=== PATIENT | female | born 1955 | race Caucasian/White ===

== ENCOUNTER 2019-06-22 01:03 | Inpatient (IN) ==
[2019-06-22] MEDS ORDERED: SODIUM CHLORIDE 0.9% 500 ML IV STA (01:28)
[2019-06-22] MEDS ORDERED: ONDANSETRON INJ 2 MG/ML 2 ML VIAL IV STA ×2 (01:33→10:27)
[2019-06-22] MEDS ORDERED: MoRPHine SULFATE 4 MG/ML 1 ML CARP\\VIAL IV STA ×2 (01:33→02:43)
[2019-06-22 02:05] LABS: Hematocrit (blood only) 47.2 % (37-47); Hemoglobin 16.2 g/dL (12.0-16.0); Mean Corpuscular Hgb Conc 34.3 g/dL (32-36); Mean Corpuscular Volume 92.2 fL (80-100); Mean Platelet Volume 9.6 fL (7.4-10.4); Platelet Count 334 K/uL (130-400); RDW Coefficient of Variation 12.8 % (11.5-14.5); RDW Standard Deviation 43.4 fL (36.4-46.3); Red Blood Count 5.12 M/uL (4.2-5.4); White Blood Count 12.64 K/uL (4.8-10.8)
--- NOTE | 2019-06-22 02:15 | Emergency Department Note ---
History of Present Illness General Chief complaint: Flank Pain Stated complaint: PAIN RT SIDE,VOMITING History of Present Illness Maximum Pain Intensity: 8 This 64-year-old presents to the ER complaining of headache, hypertension and right flank pain Location: Head and right flank Quality: Severe Severity: Severe Duration: Today Timing: Today Context: Symptoms got worse and patient came in Modifying factors: better with nothing; worse with nothing Patient states she has not seen a doctor in over a decade. She does not take any medications. She has a distant history of kidney stones. Patient states today she started off with a headache and then developed right flank pain. Nothing makes it better or worse. Patient denies chest pain, dyspnea, abdominal pain, radiating pain, numbness, tingling, localized weakness. No tobacco or alcohol use. Home Medications Home Medications Medication Instructions Recorded Confirmed Type acetaminophen [Tylenol Arthritis 650 mg PO DIRECTED PRN 06/22/19 06/22/19 History Pain] diphenhydramine-acetaminophen 1 tab PO DIRECTED PRN 06/22/19 06/22/19 History [Tylenol PM Extra Strength] Allergies Allergy/AdvReac Type Severity Reaction Status Date / Time Penicillins Allergy Unknown STRONG Verified 06/22/19 01:55 FAMILY HX-NEVER USED. Sulfa (Sulfonamide AdvReac Severe SEVERE N&V Verified 06/22/19 01:55 Antibiotics) Past Med/Surg History Medical History Kidney stones Social History Feels Safe at Home: Yes Smoking Status: Never smoker Review of Systems All systems reviewed & are unremarkable except as noted in HPI & below Physical Exam Vital Signs Vital Signs - 24 hr 06/22/19 01:11 06/22/19 02:34 06/22/19 04:27 Temperature 36.7 C Temperature Source Oral Sepsis Recent Fever Within 48 Hours No Sepsis New/Unexplained Change in Mental Status No Sepsis Action Taken by Nursing No Action Required Pulse Rate 90 Pulse Rate [Left] 63 Pulse Rhythm [Left] Regular Pulse Strength [Left] Normal Respiratory Rate 20 20 17 Respiratory Effort / Characteristics Non-Labored Spontaneous Non-Labored Spontaneous Respiratory Depth Normal Normal Respiratory Pattern Regular Regular Blood Pressure 240/118 H Blood Pressure [Right Arm] 207/114 H 195/113 H Blood Pressure Mean 158 Blood Pressure Mean [Right Arm] 145 140 Blood Pressure Position [Right Arm] Lying Lying Pulse Oximetry 98 95 95 Oxygen Delivery Method Room Air Nasal Cannula Oxygen Flow Rate 2 06/22/19 04:47 Temperature Temperature Source Sepsis Recent Fever Within 48 Hours Sepsis New/Unexplained Change in Mental Status Sepsis Action Taken by Nursing Pulse Rate Pulse Rate [Left] 74 Pulse Rhythm [Left] Regular Pulse Strength [Left] Normal Respiratory Rate 17 Respiratory Effort / Characteristics Non-Labored Spontaneous Respiratory Depth Normal Respiratory Pattern Regular Blood Pressure Blood Pressure [Right Arm] 187/82 H Blood Pressure Mean Blood Pressure Mean [Right Arm] 117 Blood Pressure Position [Right Arm] Lying Pulse Oximetry 96 Oxygen Delivery Method Room Air Oxygen Flow Rate 2 VITALS: Vitals are noted on the nurse's note and reviewed by myself. Vital signs severe hypertension. GENERAL: Pleasant female, in no acute distress, nondiaphoretic, well-developed well-nourished. SKIN: The skin was without rashes, erythema, edema, or bruising. There is no tenting of the skin. Capillary reflex less than 2 seconds. HEAD: Normocephalic atraumatic. EARS: External auditory canals clear, tympanic membranes pearly lyles without e rythema or effusion bilaterally. EYES: Pupils equal round and reactive to light and accommodation. Conjunctivae without injection, sclerae without icterus. Extraocular movements intact. NOSE: Patent, turbinates without inflammation or discharge. No sinus tenderness. MOUTH: Mucous membranes moist. Pharynx without erythema or exudate. Uvula midline. Airway patent. Tongue does not deviate. NECK: Supple without nuchal rigidity. No lymphadenopathy. No thyromegaly. Cervical spine is nontender. No JVD. HEART: Regular rate and rhythm LUNGS: Clear to auscultation bilaterally without wheezes, rales or rhonchi. No retractions or accessory muscle use. ABDOMEN: Positive bowel sounds x 4. Normal tympanic percussion. Soft, nontender, without masses or organomegaly. Ayon sign negative. No guarding or rebound tenderness. No CVA tenderness MUSCULOSKELETAL: No muscle atrophy, erythema, or edema noted. NEURO: Patient was alert and oriented to person place and time. Normal sensat ion to light and sharp touch. No focal neurological deficits. Course Administered Medications Ioversol (Optiray 320 125ml) 125 ml IV ONCE PRN PRN Reason: Interaction Checking Stop: 06/26/19 04:16 Last Admin: 06/22/19 04:17 Dose: 118 ml Documented by: [id number] Discontinued Medications Hydralazine HCl (Hydralazine Hcl) 10 mg IV NOW STA Stop: 06/22/19 04:11 Last Admin: 06/22/19 04:26 Dose: 10 mg Documented by: [id number] Sodium Chloride (Nss) 500 mls @ 999 mls/hr IV .Q31M STA Stop: 06/22/19 01:58 Last Infusion: 06/22/19 02:34 Dose: 0 mls/hr Documented by: [id number] Admin: 06/22/19 02:00 Dose: 999 mls/hr Documented by: [id number] Ceftriaxone Sodium (Rocephin) 2,000 mg in 70 mls @ 140 mls/hr IV NOW STA Stop: 06/22/19 04:34 Last Admin: 06/22/19 04:43 Dose: 140 mls/hr Documented by: [id number] Acetaminophen (Ofirmev) 1,000 mg in 100 mls @ 400 mls/hr IV NOW STA Stop: 06/22/19 04:24 Last Infusion: 06/22/19 04:43 Dose: 0 mls/hr Documented by: [id number] Admin: 06/22/19 04:26 Dose: 400 mls/hr Documented by: [id number] Morphine Sulfate (Morphine Sulfate) 4 mg IV NOW STA Stop: 06/22/19 01:34 Last Admin: 06/22/19 02:00 Dose: 4 mg Documented by: [id number] Morphine Sulfate (Morphine Sulfate) 4 mg IV NOW STA Stop: 06/22/19 02:44 Last Admin: 06/22/19 02:53 Dose: 4 mg Documented by: [id number] Ondansetron HCl (Zofran) 4 mg IV NOW STA Stop: 06/22/19 01:34 Last Admin: 06/22/19 02:00 Dose: 4 mg Documented by: [id number] Medical Decision Making Medical Records Attestation: I reviewed the patient's medical records. Home Medications Current Medication List: was personally reviewed by me Laboratory Data Attestation: I reviewed the patient's lab results. Result diagrams: 06/22/19 01:50 06/22/19 01:50 Lab Results 06/22/19 06/22/19 06/22/19 Range/Units 01:50 01:50 01:50 WBC 12.64 H (4.8-10.8) K/uL RBC 5.12 (4.2-5.4) M/uL Hgb 16.2 H (12.0-16.0) g/dL POC Hgb (12.0-16.0) g/dl Hct 47.2 H (37-47) % POC Hct (37-47) % MCV 92.2 (80-100) fL MCH 31.6 (25-34) pg MCHC 34.3 (32-36) g/dL RDW Std Deviation 43.4 (36.4-46.3) fL RDW Coeff of Marcos 12.8 (11.5-14.5) % Plt Count 334 (130-400) K/uL MPV 9.6 (7.4-10.4) fL PT 10.0 (9.0-12.0) Seconds INR 1.0 (0.9-1.1) APTT 28.0 (21.0-31.0) Seconds PTT Ratio 1.0 POC Sodium (135-144) mEq/L Sodium 142 (136-145) mmol/L POC Potassium (3.3-5.0) mEq/L Potassium 3.8 (3.5-5.1) mmol/L POC Chloride (101-112) mEq/L Chloride 109 H (98-107) mmol/L Carbon Dioxide 27 (21-32) mmol/L POC Total CO2 (24-31) mEq/l Anion Gap 6.0 (3-11) POC Anion Gap (16-25) mmol/L POC BUN (7-18) mg/dl BUN 11 (7-18) mg/dl Creatinine 1.19 (0.6-1.2) mg/dl POC Creatinine (0.6-1.3) mg/dl Est Cr Clr Drug Dosing Not Reportable Est GFR ( Amer) 56.7 Est GFR (Non-Af Amer) 48.9 BUN/Creatinine Ratio 9.2 L (10-20) Glucose 107 H (70-99) mg/dl POC Glucose (other) (70-99) mg/dl Calcium 9.5 (8.5-10.1) mg/dl POC Ioniz Calcium Dk (1.12-1.32) mmol/l Total Bilirubin 0.8 (0.2-1) mg/dl AST 22 (15-37) U/L ALT 28 (12-78) U/L Alkaline Phosphatase 118 H (45-117) U/L Troponin I < 0.015 (0-0.045) ng/ml Total Protein 8.0 (6.4-8.2) gm/dl Albumin 4.2 (3.4-5.0) gm/dl Globulin 3.8 (2.5-4.0) gm/dl Albumin/Globulin Ratio 1.1 (0.9-2) TSH 4.630 H (0.300-4.500) uIu/ml Free T4 1.16 (0.8-1.6) ng/dl Specimen Hemolysis Urine Color Urine Appearance (Clear) Urine pH (4.5-7.5) POC Urine pH (4.5-7.5) Ur Specific [place] (1.000-1.030) Urine Protein (Negative) POC Urine Protein (Negative) Urine Glucose (UA) (Negative) POC Ur Glucose (UA) (Normal) Urine Ketones (Negative) POC Urine Ketones (Negative) Urine Blood (Negative) POC Urine Blood (Negative) Urine Nitrite (Negative) POC Urine Nitrite (Negative) Urine Bilirubin (Negative) POC Urine Bilirubin (Negative) Urine Urobilinogen (Negative) Ur Leukocyte Esterase (Negative) POC U Leukocyte Esteras (Negative) Urine WBC (Auto) (0-5) /hpf Urine RBC (Auto) (0-4) /hpf U Hyaline Cast (Auto) (0-5) /lpf U Epithel Cells (Auto) (0-5) /lpf Urine Bacteria (Auto) (Negative) 06/22/19 06/22/19 06/22/19 Range/Units 02:06 02:15 02:15 WBC (4.8-10.8) K/uL RBC (4.2-5.4) M/uL Hgb (12.0-16.0) g/dL POC Hgb 16.3 H (12.0-16.0) g/dl Hct (37-47) % POC Hct 48 H (37-47) % MCV (80-100) fL MCH (25-34) pg MCHC (32-36) g/dL RDW Std Deviation (36.4-46.3) fL RDW Coeff of Marcos (11.5-14.5) % Plt Count (130-400) K/uL MPV (7.4-10.4) fL PT (9.0-12.0) Seconds INR (0.9-1.1) APTT (21.0-31.0) Seconds PTT Ratio POC Sodium 143 (135-144) mEq/L Sodium (136-145) mmol/L POC Potassium 3.9 (3.3-5.0) mEq/L Potassium (3.5-5.1) mmol/L POC Chloride 107 (101-112) mEq/L Chloride (98-107) mmol/L Carbon Dioxide (21-32) mmol/L POC Total CO2 25 (24-31) mEq/l Anion Gap (3-11) POC Anion Gap 16.0 (16-25) mmol/L POC BUN 11 (7-18) mg/dl BUN (7-18) mg/dl Creatinine (0.6-1.2) mg/dl POC Creatinine 1.1 (0.6-1.3) mg/dl Est Cr Clr Drug Dosing Est GFR ( Amer) Est GFR (Non-Af Amer) BUN/Creatinine Ratio (10-20) Glucose (70-99) mg/dl POC Glucose (other) 115 H (70-99) mg/dl Calcium (8.5-10.1) mg/dl POC Ioniz Calcium Dk 1.16 (1.12-1.32) mmol/l Total Bilirubin (0.2-1) mg/dl AST (15-37) U/L ALT (12-78) U/L Alkaline Phosphatase (45-117) U/L Troponin I (0-0.045) ng/ml Total Protein (6.4-8.2) gm/dl Albumin (3.4-5.0) gm/dl Globulin (2.5-4.0) gm/dl Albumin/Globulin Ratio (0.9-2) TSH (0.300-4.500) uIu/ml Free T4 (0.8-1.6) ng/dl Specimen Hemolysis Urine Color Yellow Urine Appearance Clear (Clear) Urine pH 6.0 (4.5-7.5) POC Urine pH 6 (4.5-7.5) Ur Specific [place] 1.016 (1.000-1.030) Urine Protein 1+ H (Negative) POC Urine Protein Trace H (Negative) Urine Glucose (UA) Negative (Negative) POC Ur Glucose (UA) Normal (Normal) Urine Ketones Negative (Negative) POC Urine Ketones Negative (Negative) Urine Blood 3+ H (Negative) POC Urine Blood 250 H (Negative) Urine Nitrite Negative (Negative) POC Urine Nitrite Negative (Negative) Urine Bilirubin Negative (Negative) POC Urine Bilirubin Negative (Negative) Urine Urobilinogen Negative (Negative) Ur Leukocyte Esterase 2+ H (Negative) POC U Leukocyte Esteras Trace H (Negative) Urine WBC (Auto) 10-30 H (0-5) /hpf Urine RBC (Auto) >30 H (0-4) /hpf U Hyaline Cast (Auto) 1-5 (0-5) /lpf U Epithel Cells (Auto) 0-5 (0-5) /lpf Urine Bacteria (Auto) 2+ H (Negative) Imaging Data Attestation: I personally reviewed and interpreted this imaging study as follows: Blood Pressure Blood Pressure Findings: Elevated blood pressure Blood Pressure Disposition: Referred to patients primary care provider MDM Narrative Prior records/ancillary studies reviewed and summarized above. Nursing notes reviewed. Additional history obtained from family. The patient's history was concerning for headache, hypertension and flank pain. Differential diagnosis: Etiologies such as metabolic, infection, hypo/hyperglycemia, electrolyte abnormalities, cardiac sources, intracerebral event, toxicologic, neurologic, as well as others were entertained. Physical examination: As above. ER treatment provided: IV Lock, Rocephin, hydralazine Morphine and Zofran IV On reassessment the patient felt better. Diagnostics interpretation by me: ECG: Normal sinus, normal intervals, T wave inversions in the anterolateral leads, no old EKG. Impression normal sinus rhythm with T wave inversion in the anterolateral leads interpreted by myself I think arrhythmia is unlikely. EKG shows normal sinus rhythm with no interval abnormalities such as QT prolongation or WPW. There are no findings to suggest Brugada syndrome. Cardiac monitoring in the emergency department reveals no tachycardic or bradycardic dysrhythmia. Hypertrophic cardiomyopathy was considered but there are no clear historical elements pointing toward this. EKG is not suggestive. The QRS voltage is not extremely large and there are no suggestive Q waves. The labs revealed negative troponin Leukocytosis. Urine concerning for infection and sent for culture. Imaging studies: CTA ABDOMEN & PELVIS W/WO Contrast: 5 mm obstructing stone at the right UPJ causing mild to moderate right hydronephrosis and hydroureter. Additional nonobstructing stones in the right kidney. Exophytic cyst measuring 2.5 cm at the medial inferior right kidney is probably benign. Diverticulosis without diverticulitis. No bowel wall thickening or obstruction. Normal appendix. No aortic aneurysm or dissection. Mild aortic atherosclerosis. Scoliosis. Radiologist: Renzo Blas MD CT HEAD: No acute intracranial hemorrhage, mass effect, midline shift, hydrocephalus or acute infarct. Lowdensity in the bilateral periventricular white matter is nonspecific but probably represents chronic small vessel ischemic disease. Bony structures are intact. Soft tissues are unremarkable. Radiologist: Renzo Blas MD Consultation: A consultation was placed with the hospitalist, Dr. Davis. The case was discussed and diagnostics were reviewed. The patient was evaluated in the ER for further treatment. Exam and history seem consistent with hypertensive urgency, right ureteral colic with UTI and ureterolithiasis. Medicine was consulted. Patient started antibiotics. Blood pressure came down. It was still high though. Patient is agreeable to treatment plan of admission. By the evaluation outlined above emergent etiologies such as electrolyte abnormalities, cardiac sources, intracerebral event, toxologic, abnormalities blood glucose, metabolic, as well as others were deemed relatively unlikely. The pt informed about the findings as listed above. All questions were answered and pleased with the treatment. Case reviewed with my attending The chart was completed utilizing [employer] Speech voice recognition software. Grammatical errors, random word insertions, pronoun errors, and incomplete sentences are an occassional consequence of this system due to software limitations, ambient noise, and hardware issues. Any formal questions or concerns about the content, text, or information contained within the body of this dictation should be directly addressed to the physician salon assistant for clarification. Impression & Plan Renal colic on right side, Ureterolithiasis, Hypertensive urgency Discharge Plan Visit Data Chief Complaint: Flank Pain Stated Complaint: PAIN RT SIDE,VOMITING ED Provider: Hussain Monet ED Midlevel Provider: Lorrie Bourgeois Discharge Problem: Renal colic on right side, Ureterolithiasis, Hypertensive urgency Patient Disposition: Being Evaluated by Hospitalist Condition: Fair Forms Stand Alone Forms: My [facility] Prescriptions Prescriptions: No Action acetaminophen [Tylenol Arthritis Pain] 650 mg Tablet Extended Release 650 mg PO DIRECTED PRN (Reason: Pain) RF: 0 diphenhydramine-acetaminophen [Tylenol PM Extra Strength] 25-500 mg Tablet 1 tab PO DIRECTED PRN (Reason: PAIN/SLEEP) RF: 0 Referrals Referrals: PCP,NO [Primary Care Provider] -
[2019-06-22 02:22] LABS: iSTAT Creatinine 1.1 mg/dl (0.6-1.3); iSTAT Hemoglobin 16.3 g/dl (12.0-16.0); iSTAT Ionized Calcium 1.16 mmol/l (1.12-1.32); iSTAT Potassium 3.9 mEq/L (3.3-5.0)
[2019-06-22 02:40] LABS: Alanine Aminotransferase 28 U/L (12-78); Albumin Globulin Ratio 1.1 (0.9-2); Albumin Level 4.2 gm/dl (3.4-5.0); Alkaline Phosphatase 118 U/L (45-117); Aspartate Aminotransferase 22 U/L (15-37); BUN Creatinine Ratio 9.2 (10-20); Bilirubin,Total 0.8 mg/dl (0.2-1); Blood Urea Nitrogen 11 mg/dl (7-18); Calcium 9.5 mg/dl (8.5-10.1); Carbon Dioxide 27 mmol/L (21-32); Chloride 109 mmol/L (98-107); Est GFR (African American) 56.7; Est GFR (Non-African American) 48.9; Globulin 3.8 gm/dl (2.5-4.0); Glucose 107 mg/dl (70-99); Potassium 3.8 mmol/L (3.5-5.1); Sodium 142 mmol/L (136-145); Troponin I < 0.015 ng/ml (0-0.045)
[2019-06-22 02:41] LABS: Appearance Urine Clear (Clear); Bacteria Urine Automated 2+ (Negative); Bilirubin Urine Negative (Negative); Blood Urine 3+ (Negative); Color Urine Yellow; Epithelial Cell Urine Auto 0-5 /lpf (0-5); Glucose Urine UA Negative (Negative); Ketones Urine Negative (Negative); Leukocyte Esterase Urine 2+ (Negative); Nitrite Urine Negative (Negative); Protein Urine 1+ (Negative); RBC Urine Automated >30 /hpf (0-4); Specific Gravity Urine 1.016 (1.000-1.030); Urobilinogen Urine Negative (Negative)
[2019-06-22 02:57] LABS: T4 Free Thyroxine 1.16 ng/dl (0.8-1.6)
[2019-06-22] MEDS ORDERED: cefTRIAXone SODIUM 2,000 MG/70 ML BAG IV STA (04:05)
[2019-06-22] MEDS ORDERED: HydrALAZINE HCL 20 MG/ML VIAL IV STA ×2 (04:10→04:48)
[2019-06-22] MEDS ORDERED: ACETAMINOPHEN 1,000 MG/100 ML VIAL IV STA (04:10)
[2019-06-22] MEDS ORDERED: OPTIRAY 320 125ml IV PRN (04:17)
[2019-06-22] MEDS ORDERED: ONDANSETRON INJ 2 MG/ML 2 ML VIAL ONE (05:05)
[2019-06-22] MEDS ORDERED: dilTIAZem HCl 5 MG/ML 5 ML VIAL IV STA (05:12)
--- NOTE | 2019-06-22 05:51 | History & Physical Report ---
Date of Service June 22, 2019 Assessment & Plan (1) Hypertensive urgency: Hypertensive urgency/abnormal EKG with T wave inversions suggesting lateral ischemia- The patient will be admitted to telemetry for serial cardiac enzymes, serial EKG's, cardiac rhythm monitoring and a 2-D echocardiogram with Dopplers. Initial systolic blood pressure in the ED was 260. Patient has been given hydralazine 10 mg IV, followed by Cardizem 10 mg IV in the ED. Start Nitropaste 1 inch to anterior chest wall every 6 hours. Lopressor 5 mg IV every 4 hours hold for heart rate less than 60 or systolic blood pressure less than 110. Consult cardiology. Present on Admission?: Yes (2) Abnormal EKG: See above Present on Admission?: Yes (3) Obstruction of right ureteropelvic junction (UPJ) due to stone: 5 mm obstructing right UPJ stone/right hydroureteronephrosis/abnormal urinalysis- Acetaminophen 1 g IV every 8 hours PRN mild pain or temperature. Dilaudid 0.5 mg IV every 3 hours as needed severe pain. NSS + KCl 20 mEq at 100 mils per hour. Zofran 4 mg IV every 6 hours as needed. Consult urology. Present on Admission?: Yes (4) Hydroureteronephrosis: See above Present on Admission?: Yes History of Present Illness Chief Complaint: The patient presents to the emergency department with acute onset of headache, right flank pain, nausea with vomiting and elevated blood pressure. Primary Care Provider: NO PCP Patient is a 64-year-old female with a past medical history including kidney stones about 20 years ago that required surgical removal, who developed acute onset of right flank pain, nausea and vomiting, headache and elevated blood pressure prior to arrival. Allergies Allergy/AdvReac Type Severity Reaction Status Date / Time Penicillins Allergy Unknown STRONG Verified 06/22/19 01:55 FAMILY HX-NEVER USED. Sulfa (Sulfonamide AdvReac Severe SEVERE N&V Verified 06/22/19 01:55 Antibiotics) Home Medications Home Medications Medication Instructions Recorded Confirmed Type acetaminophen [Tylenol Arthritis 650 mg PO DIRECTED PRN 06/22/19 06/22/19 History Pain] diphenhydramine-acetaminophen 1 tab PO DIRECTED PRN 06/22/19 06/22/19 History [Tylenol PM Extra Strength] Past Med/Surg History Medical History Kidney stones Social History Feels Safe at Home: Yes Smoking Status: Never smoker Review of Systems Review of Systems: The patient denies chest pain, palpitations, shortness of breath, dyspnea on exertion, cough, lower extremity swelling, sore throat, fevers, chills, sweats, diarrhea , constipation, blood in urine or stool, dysuria, urinary frequency or urgency, memory loss, loss of consciousness, rash, abnormal bruising or bleeding, imbalance, focal or generalized weakness, numbness or tingling in arms or legs, generalized arthralgias or myalgias, back or neck pain, or night sweats. The review of systems is otherwise negative other than for that already noted above, and at least 10 systems have been reviewed. Physical Exam Physical Exam: The patient is awake, alert and oriented 3, well developed and well nourished, normocephalic and atraumatic, sitting upright in bed, with vomit bag in hand. HEENT--PERRL, EOMI, mucous membranes and oropharynx dry. Neck--supple. No JVD. No bruits. Thyroid normal, trachea midline, no adenopathy. Heart--normal S1 and S2. No murmurs, rubs or gallops. Lungs--clear bilaterally, but diminished throughout. Abdomen--normal bowel sounds and soft. Nontender. Nondistended. Extremities--no cyanosis or clubbing. No edema. There are good distal pulses b/l. Dermatologic--normal skin turgor, normal color, no abnormal lymph nodes, no rash. Neurologic--cranial nerves II through XII grossly intact. Rheumatologic--normal range of motion. Psychiatric--normal affect. Results & Data Vital Signs (Past 12 Hours) Vital Signs Temp Pulse Pulse Resp BP BP Pulse Ox 06/22/19 05:13 79 18 178/91 H 94 06/22/19 04:47 74 17 187/82 H 96 06/22/19 04:27 63 17 195/113 H 95 06/22/19 02:34 20 207/114 H 95 06/22/19 01:11 98.1 F 90 20 240/118 H 98 Laboratory Results Laboratory Results WBC 12.64 K/uL (4.8-10.8) H 06/22/19 01:50 RBC 5.12 M/uL (4.2-5.4) 06/22/19 01:50 Hgb 16.2 g/dL (12.0-16.0) H 06/22/19 01:50 POC Hgb 16.3 g/dl (12.0-16.0) H 06/22/19 02:06 Hct 47.2 % (37-47) H 06/22/19 01:50 POC Hct 48 % (37-47) H 06/22/19 02:06 MCV 92.2 fL (80-100) 06/22/19 01:50 MCH 31.6 pg (25-34) 06/22/19 01:50 MCHC 34.3 g/dL (32-36) 06/22/19 01:50 RDW Std Deviation 43.4 fL (36.4-46.3) 06/22/19 01:50 RDW Coeff of Marcos 12.8 % (11.5-14.5) 06/22/19 01:50 Plt Count 334 K/uL (130-400) 06/22/19 01:50 MPV 9.6 fL (7.4-10.4) 06/22/19 01:50 PT 10.0 Seconds (9.0-12.0) 06/22/19 01:50 INR 1.0 (0.9-1.1) 06/22/19 01:50 APTT 28.0 Seconds (21.0-31.0) 06/22/19 01:50 PTT Ratio 1.0 06/22/19 01:50 POC Sodium 143 mEq/L (135-144) 06/22/19 02:06 Sodium 142 mmol/L (136-145) 06/22/19 01:50 POC Potassium 3.9 mEq/L (3.3-5.0) 06/22/19 02:06 Potassium 3.8 mmol/L (3.5-5.1) 06/22/19 01:50 POC Chloride 107 mEq/L (101-112) 06/22/19 02:06 Chloride 109 mmol/L (98-107) H 06/22/19 01:50 Carbon Dioxide 27 mmol/L (21-32) 06/22/19 01:50 POC Total CO2 25 mEq/l (24-31) 06/22/19 02:06 Anion Gap 6.0 (3-11) 06/22/19 01:50 POC Anion Gap 16.0 mmol/L (16-25) 06/22/19 02:06 POC BUN 11 mg/dl (7-18) 06/22/19 02:06 BUN 11 mg/dl (7-18) 06/22/19 01:50 Creatinine 1.19 mg/dl (0.6-1.2) 06/22/19 01:50 POC Creatinine 1.1 mg/dl (0.6-1.3) 06/22/19 02:06 Est Cr Clr Drug Dosing Not Reportable 06/22/19 01:50 Est GFR ( Amer) 56.7 06/22/19 01:50 Est GFR (Non-Af Amer) 48.9 06/22/19 01:50 BUN/Creatinine Ratio 9.2 (10-20) L 06/22/19 01:50 Glucose 107 mg/dl (70-99) H 06/22/19 01:50 POC Glucose (other) 115 mg/dl (70-99) H 06/22/19 02:06 Calcium 9.5 mg/dl (8.5-10.1) 06/22/19 01:50 POC Ioniz Calcium Dk 1.16 mmol/l (1.12-1.32) 06/22/19 02:06 Total Bilirubin 0.8 mg/dl (0.2-1) 06/22/19 01:50 AST 22 U/L (15-37) 06/22/19 01:50 ALT 28 U/L (12-78) 06/22/19 01:50 Alkaline Phosphatase 118 U/L (45-117) H 06/22/19 01:50 Troponin I < 0.015 ng/ml (0-0.045) 06/22/19 01:50 Total Protein 8.0 gm/dl (6.4-8.2) 06/22/19 01:50 Albumin 4.2 gm/dl (3.4-5.0) 06/22/19 01:50 Globulin 3.8 gm/dl (2.5-4.0) 06/22/19 01:50 Albumin/Globulin Ratio 1.1 (0.9-2) 06/22/19 01:50 TSH 4.630 uIu/ml (0.300-4.500) H 06/22/19 01:50 Free T4 1.16 ng/dl (0.8-1.6) 06/22/19 01:50 Specimen Hemolysis 06/22/19 01:50 Urine Color Yellow 06/22/19 02:15 Urine Appearance Clear (Clear) 06/22/19 02:15 Urine pH 6.0 (4.5-7.5) 06/22/19 02:15 POC Urine pH 6 (4.5-7.5) 06/22/19 02:15 Ur Specific [place] 1.016 (1.000-1.030) 06/22/19 02:15 Urine Protein 1+ (Negative) H 06/22/19 02:15 POC Urine Protein Trace (Negative) H 06/22/19 02:15 Urine Glucose (UA) Negative (Negative) 06/22/19 02:15 POC Ur Glucose (UA) Normal (Normal) 06/22/19 02:15 Urine Ketones Negative (Negative) 06/22/19 02:15 POC Urine Ketones Negative (Negative) 06/22/19 02:15 Urine Blood 3+ (Negative) H 06/22/19 02:15 POC Urine Blood 250 (Negative) H 06/22/19 02:15 Urine Nitrite Negative (Negative) 06/22/19 02:15 POC Urine Nitrite Negative (Negative) 06/22/19 02:15 Urine Bilirubin Negative (Negative) 06/22/19 02:15 POC Urine Bilirubin Negative (Negative) 06/22/19 02:15 Urine Urobilinogen Negative (Negative) 06/22/19 02:15 Ur Leukocyte Esterase 2+ (Negative) H 06/22/19 02:15 POC U Leukocyte Esteras Trace (Negative) H 06/22/19 02:15 Urine WBC (Auto) 10-30 /hpf (0-5) H 06/22/19 02:15 Urine RBC (Auto) >30 /hpf (0-4) H 06/22/19 02:15 U Hyaline Cast (Auto) 1-5 /lpf (0-5) 06/22/19 02:15 U Epithel Cells (Auto) 0-5 /lpf (0-5) 06/22/19 02:15 Urine Bacteria (Auto) 2+ (Negative) H 06/22/19 02:15 Diagnostic Findings [facility] Patient: SHAHEEN OLEARY (Female) Age: 64 MR #: [id number] Status: ER Date: 06/22/19 02:26 Slices: 66 History: HEADACHE EARLIER TODAY , BLOOD PRESSURE ELEVATED Priors: Tech: Garry Bunch @ [phone] Exams: CT HEAD Accession Numbers: [id number] Preliminary Findings Only See Final Report For Complete Findings CT HEAD: No acute intracranial hemorrhage, mass effect, midline shift, hydrocephalus or acute infarct. Low-density in the bilateral periventricular white matter is nonspecific but probably represents chronic small vessel ischemic disease. Bony structures are intact. Soft tissues are unremarkable. Radiologist: Renzo Blas MD Study ready at 02:30 and initial results transmitted at 02:46 *This report constitutes a preliminary interpretation only. Non-acute findings felt to be unrelated to the clinical presentation may not be discussed in this report. The study will be interpreted and a final report will be generated by the local Radiologist the following shift. To reach the hospital radiology department call [phone]. If a discrepancy is found between the preliminary and final interpretations of this study, please notify us via our Client Portal at [email or web address], under QA Exams. You can also fax this report with a description of the discrepancy, or include the final report, to our daytime fax number [phone]. If faxing, please indicate the severity of discrepancy using one of the following categories: [ ] 1 - Agree/Informational [ ] 2 - Unlikely to Affect Management [ ] 3 - Possible Eventual Change of Management [ ] 4 - Probable Immediate Change of Management For all other patient related information, please fax us at [phone]. [id number] [facility] Patient: SHAHEEN OLEARY (Female) Age: 64 MR #: [id number] Status: ER Date: 06/22/19 03:59 Slices: [id number] History: PAIN AT RIGHT FLANK, H/O KIDNEY STONES, AND HTN Priors: Tech: Garry Bunch @ [phone] Exams: CTA ABDOMEN & PELVIS W/WO Contrast Contrast: IV Amt: 118 ML OPTIRAY 320 Accession Numbers: [id number] Preliminary Findings Only See Final Report For Complete Findings CTA ABDOMEN & PELVIS W/WO Contrast: 5 mm obstructing stone at the right UPJ causing mild to moderate right hydronephrosis and hydroureter. Additional nonobstructing stones in the right kidney. Exophytic cyst measuring 2.5 cm at the medial inferior right kidney is probably benign. Diverticulosis without diverticulitis. No bowel wall thickening or obstruction. Normal appendix. No aortic aneurysm or dissection. Mild aortic atherosclerosis. Scoliosis. Radiologist: Renzo Blas MD Study ready at 04:01 and initial results transmitted at 04:29 *This report constitutes a preliminary interpretation only. Non-acute findings felt to be unrelated to the clinical presentation may not be discussed in this report. The study will be interpreted and a final report will be generated by the local Radiologist the following shift. To reach the hospital radiology department call [phone]. If a discrepancy is found between the preliminary and final interpretations of this study, please notify us via our Client Portal at [email or web address], under QA Exams. You can also fax this report with a description of the discrepancy, or include the final report, to our daytime fax number [phone]. If faxing, please indicate the severity of discrepancy using one of the following categories: [ ] 1 - Agree/Informational [ ] 2 - Unlikely to Affect Management [ ] 3 - Possible Eventual Change of Management [ ] 4 - Probable Immediate Change of Management For all other patient related information, please fax us at [phone]. [id number] Code Status & VTE Plan Code Status Full code VTE Prophylaxis Plan VTE Prophylaxis will be ordered: Yes PG Care Time/CCT Total # of Minutes Spent Total Time Spent with Patient: Total time spent is greater than 50% in coordination of care (as documented) at patient's floor/unit and/or counseling patient:
[2019-06-22] MEDS ORDERED: ACETAMINOPHEN 1,000 MG/100 ML VIAL IV PRN (06:56)
[2019-06-22] MEDS ORDERED: HYDROmorphone INJ 0.5 MG/0.5 ML SYR IV PRN (06:56)
[2019-06-22] MEDS ORDERED: ONDANSETRON INJ 2 MG/ML 2 ML VIAL IV PRN ×2 (06:56→10:27)
--- NOTE | 2019-06-22 07:06 | CT Scan Report ---
HEAD CT NONCONTRAST CT DOSE: 614.27 mGy.cm HISTORY: Severe headache. Hypertension. TECHNIQUE: Multiaxial CT images of the head were performed without the use of intravenous contrast. A utomated exposure control was utilized for this study. A dose lowering technique was utilized adheri ng to the principles of ALARA. Comparison: None. Findings: The paranasal sinuses and mastoid air cells are clear. The calvarium and skull base are int act. There is no mass, hematoma, midline shift, acute infarct. White matter hypodensity is nonspecifi c but suggestive of microvascular ischemic change. The ventricles and sulci demonstrate mild age-rela bhakti involutional changes. Impression: No acute intracranial abnormality. Electronically signed by: Romaine Tripp M.D. 06/22/2019 7:04 AM
--- NOTE | 2019-06-22 07:20 | CT Scan Report ---
CT angio abd pelvis wo/w con HISTORY: severe right flank pain, HTN, weak TECHNIQUE: Multiaxial CT images of the abdomen and pelvis performed both before and after the intrave nous administration of contrast to evaluate the aorta. Maximal intensity projection images were also obtained. COMPARISON STUDY: None. FINDINGS: There are few punctate right renal calculi. Mild right hydronephrosis secondary to an obstr ucting 5 mm stone at the right ureteropelvic junction. Mild right perinephric edema. A 2.4 cm exophyt ic hyperdense cyst within the lower pole the right kidney. Bibasilar linear densities consistent with subsegmental atelectasis. No suspicious lytic or blastic osseous lesions. Small amount of fluid with in the distal esophagus. The liver, gallbladder, pancreas, spleen, and kidneys are unremarkable. No l eft-sided hydronephrosis. No retroperitoneal lymphadenopathy. Mild calcified plaque within the normal caliber abdominal aorta. No evidence for an aortic dissection. The renal, superior mesenteric, infer ior mesenteric, and celiac arteries are widely patent. The iliac arteries are also patent. The bladde r, uterus, and bilateral adnexa are unremarkable. Colonic diverticulosis. No evidence for diverticuli tis. No bowel wall thickening or obstruction. Small fat-containing umbilical hernia. Normal appendix. IMPRESSION: 1. A 5 mm obstructing stone within the right ureteropelvic junction resulting in mild right hydroneph rosis. 2. No evidence for an aortic dissection or aneurysm. 3. Colonic diverticulosis. 4. Small fat-containing umbilical hernia. 5. Additional findings as described above. Electronically signed by: Romaine Tripp M.D. 06/22/2019 7:19 AM
[2019-06-22] MEDS: NITROGLYCERIN 2% OINTMENT 30GM TUBE EXT SCH ×3 (07:47→19:34)
[2019-06-22] MEDS: NSS + 20MEQ KCL 20 MEQ/1,000 ML BAG IV SCH ×2 (07:47→19:34)
--- NOTE | 2019-06-22 08:08 | Family Medicine Progress Note ---
Date of Service June 22, 2019 Assessment & Plan (1) Hypertensive urgency: #Hypertensive urgency/abnormal EKG with T wave inversions suggesting lateral ischemia- The patient will be admitted to telemetry for serial cardiac enzymes, serial EKG's, cardiac rhythm monitoring and a 2-D echocardiogram with Dopplers. -Initial systolic blood pressure in the ED was 260 Now improved to 167 -Patient has been given hydralazine 10 mg IV, followed by Cardizem 10 mg IV in the ED. -Start Nitropaste 1 inch to anterior chest wall every 6 hours. -Lopressor 5 mg IV every 4 hours hold for heart rate less than 60 or systolic blood pressure less than 110. -Cardiology consulted follow-up recommendations #5 mm obstructing right UPJ stone/right hydroureteronephrosis/abnormal urinalysis -Acetaminophen 1 g IV every 8 hours PRN mild pain or temperature. -Dilaudid 0.5 mg IV every 3 hours as needed severe pain. -NSS + KCl 20 mEq at 100 mils per hour. -Zofran 4 mg IV every 6 hours as needed. -Urology consulted -Stent placement today with possibility of concurrent treatment of stone versus repeat procedure for definitive management #UTI Pts urine suspicious for UTI -F/U Cx -Continue empiric CTX for now (2) Abnormal EKG: See above (3) Obstruction of right ureteropelvic junction (UPJ) due to stone: (4) Hydroureteronephrosis: See above Supervising Physician Co-Signing Physician Notes I personally examined the patient and verified all mancuso points of history and exam, discussed case, and agree with decision making with Dr Bradley feeling better post stent d/w cardiology, echo reviewed. d/w pt ureterolithiasis - post procedure w urology. doing better marked hypertensive response / LVH - HTN management. Subjective Patient patient sitting upright in bed in no acute distress, patient endorses inability to sleep overnight. Otherwise reports presenting symptoms are improving. She reports she was seen by urology earlier this morning who said she will proceed with lithotripsy later today. Patient is n.p.o. for procedure, cardiology evaluation pending as well. Hypertension slowly resolving with metoprolol therapy, question whether elevation was secondary to pain. Patient has no questions answered all question no acute concerns. Physical Exam Physical Exam: Unchanged from admission Results & Data Vital Signs (Past 12 Hours) Vital Signs Temp Pulse Pulse Resp BP BP Pulse Ox 06/22/19 07:07 36 C L 71 18 161/93 H 94 06/22/19 06:40 36 C L 71 16 161/83 H 94 06/22/19 06:24 71 18 167/91 H 95 06/22/19 05:48 66 18 153/86 H 96 06/22/19 05:13 79 18 178/91 H 94 06/22/19 04:47 74 17 187/82 H 96 06/22/19 04:27 63 17 195/113 H 95 06/22/19 02:34 20 207/114 H 95 06/22/19 01:11 36.7 C 90 20 240/118 H 98 Laboratory Results 06/22/19 06/22/19 06/22/19 Range/Units 07:07 02:15 02:15 WBC (4.8-10.8) K/uL RBC (4.2-5.4) M/uL Hgb (12.0-16.0) g/dL POC Hgb (12.0-16.0) g/dl Hct (37-47) % POC Hct (37-47) % MCV (80-100) fL MCH (25-34) pg MCHC (32-36) g/dL RDW Std Deviation (36.4-46.3) fL RDW Coeff of Marcos (11.5-14.5) % Plt Count (130-400) K/uL MPV (7.4-10.4) fL PT (9.0-12.0) Seconds INR (0.9-1.1) APTT (21.0-31.0) Seconds PTT Ratio POC Sodium (135-144) mEq/L Sodium (136-145) mmol/L POC Potassium (3.3-5.0) mEq/L Potassium (3.5-5.1) mmol/L POC Chloride (101-112) mEq/L Chloride (98-107) mmol/L Carbon Dioxide (21-32) mmol/L POC Total CO2 (24-31) mEq/l Anion Gap (3-11) POC Anion Gap (16-25) mmol/L POC BUN (7-18) mg/dl BUN (7-18) mg/dl Creatinine (0.6-1.2) mg/dl POC Creatinine (0.6-1.3) mg/dl Est Cr Clr Drug Dosing Est GFR ( Amer) Est GFR (Non-Af Amer) BUN/Creatinine Ratio (10-20) Glucose (70-99) mg/dl POC Glucose (other) (70-99) mg/dl Calcium (8.5-10.1) mg/dl POC Ioniz Calcium Dk (1.12-1.32) mmol/l Total Bilirubin (0.2-1) mg/dl AST (15-37) U/L ALT (12-78) U/L Alkaline Phosphatase (45-117) U/L Troponin I < 0.015 (0-0.045) ng/ml Total Protein (6.4-8.2) gm/dl Albumin (3.4-5.0) gm/dl Globulin (2.5-4.0) gm/dl Albumin/Globulin Ratio (0.9-2) TSH (0.300-4.500) uIu/ml Free T4 (0.8-1.6) ng/dl Specimen Hemolysis Urine Color Yellow Urine Appearance Clear (Clear) Urine pH 6.0 (4.5-7.5) POC Urine pH 6 (4.5-7.5) Ur Specific [place] 1.016 (1.000-1.030) Urine Protein 1+ H (Negative) POC Urine Protein Trace H (Negative) Urine Glucose (UA) Negative (Negative) POC Ur Glucose (UA) Normal (Normal) Urine Ketones Negative (Negative) POC Urine Ketones Negative (Negative) Urine Blood 3+ H (Negative) POC Urine Blood 250 H (Negative) Urine Nitrite Negative (Negative) POC Urine Nitrite Negative (Negative) Urine Bilirubin Negative (Negative) POC Urine Bilirubin Negative (Negative) Urine Urobilinogen Negative (Negative) POC Urine Urobilinogen Pending Ur Leukocyte Esterase 2+ H (Negative) POC U Leukocyte Esteras Trace H (Negative) Urine WBC (Auto) 10-30 H (0-5) /hpf Urine RBC (Auto) >30 H (0-4) /hpf U Hyaline Cast (Auto) 1-5 (0-5) /lpf U Epithel Cells (Auto) 0-5 (0-5) /lpf Urine Bacteria (Auto) 2+ H (Negative) 06/22/19 06/22/19 06/22/19 Range/Units 02:06 01:50 01:50 WBC 12.64 H (4.8-10.8) K/uL RBC 5.12 (4.2-5.4) M/uL Hgb 16.2 H (12.0-16.0) g/dL POC Hgb 16.3 H (12.0-16.0) g/dl Hct 47.2 H (37-47) % POC Hct 48 H (37-47) % MCV 92.2 (80-100) fL MCH 31.6 (25-34) pg MCHC 34.3 (32-36) g/dL RDW Std Deviation 43.4 (36.4-46.3) fL RDW Coeff of Marcos 12.8 (11.5-14.5) % Plt Count 334 (130-400) K/uL MPV 9.6 (7.4-10.4) fL PT 10.0 (9.0-12.0) Seconds INR 1.0 (0.9-1.1) APTT 28.0 (21.0-31.0) Seconds PTT Ratio 1.0 POC Sodium 143 (135-144) mEq/L Sodium (136-145) mmol/L POC Potassium 3.9 (3.3-5.0) mEq/L Potassium (3.5-5.1) mmol/L POC Chloride 107 (101-112) mEq/L Chloride (98-107) mmol/L Carbon Dioxide (21-32) mmol/L POC Total CO2 25 (24-31) mEq/l Anion Gap (3-11) POC Anion Gap 16.0 (16-25) mmol/L POC BUN 11 (7-18) mg/dl BUN (7-18) mg/dl Creatinine (0.6-1.2) mg/dl POC Creatinine 1.1 (0.6-1.3) mg/dl Est Cr Clr Drug Dosing Est GFR ( Amer) Est GFR (Non-Af Amer) BUN/Creatinine Ratio (10-20) Glucose (70-99) mg/dl POC Glucose (other) 115 H (70-99) mg/dl Calcium (8.5-10.1) mg/dl POC Ioniz Calcium Dk 1.16 (1.12-1.32) mmol/l Total Bilirubin (0.2-1) mg/dl AST (15-37) U/L ALT (12-78) U/L Alkaline Phosphatase (45-117) U/L Troponin I (0-0.045) ng/ml Total Protein (6.4-8.2) gm/dl Albumin (3.4-5.0) gm/dl Globulin (2.5-4.0) gm/dl Albumin/Globulin Ratio (0.9-2) TSH (0.300-4.500) uIu/ml Free T4 (0.8-1.6) ng/dl Specimen Hemolysis Urine Color Urine Appearance (Clear) Urine pH (4.5-7.5) POC Urine pH (4.5-7.5) Ur Specific [place] (1.000-1.030) Urine Protein (Negative) POC Urine Protein (Negative) Urine Glucose (UA) (Negative) POC Ur Glucose (UA) (Normal) Urine Ketones (Negative) POC Urine Ketones (Negative) Urine Blood (Negative) POC Urine Blood (Negative) Urine Nitrite (Negative) POC Urine Nitrite (Negative) Urine Bilirubin (Negative) POC Urine Bilirubin (Negative) Urine Urobilinogen (Negative) POC Urine Urobilinogen Ur Leukocyte Esterase (Negative) POC U Leukocyte Esteras (Negative) Urine WBC (Auto) (0-5) /hpf Urine RBC (Auto) (0-4) /hpf U Hyaline Cast (Auto) (0-5) /lpf U Epithel Cells (Auto) (0-5) /lpf Urine Bacteria (Auto) (Negative) 06/22/19 Range/Units 01:50 WBC (4.8-10.8) K/uL RBC (4.2-5.4) M/uL Hgb (12.0-16.0) g/dL POC Hgb (12.0-16.0) g/dl Hct (37-47) % POC Hct (37-47) % MCV (80-100) fL MCH (25-34) pg MCHC (32-36) g/dL RDW Std Deviation (36.4-46.3) fL RDW Coeff of Marcos (11.5-14.5) % Plt Count (130-400) K/uL MPV (7.4-10.4) fL PT (9.0-12.0) Seconds INR (0.9-1.1) APTT (21.0-31.0) Seconds PTT Ratio POC Sodium (135-144) mEq/L Sodium 142 (136-145) mmol/L POC Potassium (3.3-5.0) mEq/L Potassium 3.8 (3.5-5.1) mmol/L POC Chloride (101-112) mEq/L Chloride 109 H (98-107) mmol/L Carbon Dioxide 27 (21-32) mmol/L POC Total CO2 (24-31) mEq/l Anion Gap 6.0 (3-11) POC Anion Gap (16-25) mmol/L POC BUN (7-18) mg/dl BUN 11 (7-18) mg/dl Creatinine 1.19 (0.6-1.2) mg/dl POC Creatinine (0.6-1.3) mg/dl Est Cr Clr Drug Dosing Not Reportable Est GFR ( Amer) 56.7 Est GFR (Non-Af Amer) 48.9 BUN/Creatinine Ratio 9.2 L (10-20) Glucose 107 H (70-99) mg/dl POC Glucose (other) (70-99) mg/dl Calcium 9.5 (8.5-10.1) mg/dl POC Ioniz Calcium Dk (1.12-1.32) mmol/l Total Bilirubin 0.8 (0.2-1) mg/dl AST 22 (15-37) U/L ALT 28 (12-78) U/L Alkaline Phosphatase 118 H (45-117) U/L Troponin I < 0.015 (0-0.045) ng/ml Total Protein 8.0 (6.4-8.2) gm/dl Albumin 4.2 (3.4-5.0) gm/dl Globulin 3.8 (2.5-4.0) gm/dl Albumin/Globulin Ratio 1.1 (0.9-2) TSH 4.630 H (0.300-4.500) uIu/ml Free T4 1.16 (0.8-1.6) ng/dl Specimen Hemolysis Urine Color Urine Appearance (Clear) Urine pH (4.5-7.5) POC Urine pH (4.5-7.5) Ur Specific [place] (1.000-1.030) Urine Protein (Negative) POC Urine Protein (Negative) Urine Glucose (UA) (Negative) POC Ur Glucose (UA) (Normal) Urine Ketones (Negative) POC Urine Ketones (Negative) Urine Blood (Negative) POC Urine Blood (Negative) Urine Nitrite (Negative) POC Urine Nitrite (Negative) Urine Bilirubin (Negative) POC Urine Bilirubin (Negative) Urine Urobilinogen (Negative) POC Urine Urobilinogen Ur Leukocyte Esterase (Negative) POC U Leukocyte Esteras (Negative) Urine WBC (Auto) (0-5) /hpf Urine RBC (Auto) (0-4) /hpf U Hyaline Cast (Auto) (0-5) /lpf U Epithel Cells (Auto) (0-5) /lpf Urine Bacteria (Auto) (Negative) Medications Administered Current Inpatient Medications Hydromorphone HCl (Dilaudid) 0.5 mg IV Q3H PRN PRN Reason: Severe Pain Stop: 07/06/19 06:55 Potassium Chloride/Sodium Chloride (Normal Saline W/20 Meq Kcl) 20 meq in 1,000 mls @ 100 mls/hr IV .Q10H DARIUS Stop: 07/22/19 07:29 Last Admin: 06/22/19 07:47 Dose: 100 mls/hr Documented by: Acetaminophen (Ofirmev) 1,000 mg in 100 mls @ 400 mls/hr IV Q8H PRN PRN Reason: Pain or Fever Stop: 07/22/19 06:55 Ioversol (Optiray 320 125ml) 125 ml IV ONCE PRN PRN Reason: Interaction Checking Stop: 06/26/19 04:16 Last Admin: 06/22/19 04:17 Dose: 118 ml Documented by: Metoprolol Tartrate (Lopressor) 5 mg IV Q4 DARIUS Stop: 07/22/19 07:59 Last Admin: 06/22/19 08:41 Dose: 5 mg Documented by: Nitroglycerin (Nitro-Bid 2%) 1 inch EXT Q6H DARIUS Stop: 07/22/19 06:59 Last Admin: 06/22/19 07:47 Dose: 1 inch Documented by: Ondansetron HCl (Zofran) 4 mg IV Q6H PRN PRN Reason: Nausea Stop: 07/22/19 06:55 PG Care Time/CCT Total # of Minutes Spent Total Time Spent with Patient: Total time spent is greater than 50% in coordination of care (as documented) at patient's floor/unit and/or counseling patient: Resident Activity Tracking Resident Involvement: Resident Care Provided Care Provided: Adult [facility] Medicine
[2019-06-22] MEDS: METOPROLOL TARTRATE 1 MG/ML VIAL IV SCH ×2 (08:41→13:35)
[2019-06-22] MEDS ORDERED: PERFLUTREN LIPID MICROSPHERE (DEFINITY) IV ONE (08:44)
--- NOTE | 2019-06-22 09:17 | Urology Consultation ---
Date of Consultation June 22, 2019 Assessment & Plan (1) Renal colic on right side: 5mm obstructing stone right UPJ, persisting colic. Patient remains NPO. Discussed options including continued observation vs. surgical intervention. Patient very interested in surgical intervention toady. Discussed stent placement today and possibility of cocurrent treatment of stone vs. repeat procedure for definitive management. Risks, details, consent to be discussed with Dr. Hardy. Will coordinate OR this afternoon. ATTENDING NOTE: Plan for cystoscopy with possible right ureteroscopy and stent. (2) Obstruction of right ureteropelvic junction (UPJ) due to stone: History of Present Illness Attending Physician: Will Torrez MD History of Present Illness 64 YO female with 5mm obstructing stone at right UPJ. Patient reports a sudden onset of severe right back/flank pain brining her to the ER. Her CT scan is reviewed and demonstrates obstructing 5mm stone at right UPJ and resulting mild/moderate hydronephrosis, additional right punctate calculi, and a right renal cyst. Reports that she saw a urologist 20 years ago for a stone that was removed via b asket extraction. Has not seen a urologist since. Colic is persisting this morning. Patient is nauseated. No fevers/chills. Voiding spontaneously +hematuria. Allergies Allergy/AdvReac Type Severity Reaction Status Date / Time Penicillins Allergy Unknown STRONG Verified 06/22/19 01:55 FAMILY HX-NEVER USED. Sulfa (Sulfonamide AdvReac Severe SEVERE N&V Verified 06/22/19 01:55 Antibiotics) acetaminophen [From Percocet] AdvReac Palpitation Verified 06/22/19 07:17 s adhesive AdvReac Rash Verified 06/22/19 07:17 oxycodone [From Percocet] AdvReac Palpitation Verified 06/22/19 07:17 s Home Medications Home Medications Medication Instructions Recorded Confirmed Type acetaminophen [Tylenol Arthritis 650 mg PO DIRECTED PRN 06/22/19 06/22/19 History Pain] diphenhydramine-acetaminophen 1 tab PO DIRECTED PRN 06/22/19 06/22/19 History [Tylenol PM Extra Strength] Patient History Medical History Kidney stones Social History Preferred Language: Urdu Communication Ability: Effective Beliefs That Will Affect Care: None Current Living Situation: Alone Feels Safe at Home: Yes Smoking Status: Never smoker Hx Alcohol Use: No Hx Substance Use: No Review of Systems Review of Systems: All systems reviewed & are unremarkable except as noted in HPI & below Physical Exam Constitutional: WD/WN, vitals as above ENMT: Ears: no hearing impairment Neck: normal visual inspection Respiratory: normal respiratory effort; does not use accessory muscles Cardiovascular: Vessels: no JVD Gastrointestinal (Abdomen): Percussion/Palpation: abdomen soft; abdomen nontender Skin: no rashes, warm and dry Psychiatric: A+Ox3, euthymic affect Genitourinary: + CVA tenderness (right) Bladder nontender/nondistended. Results & Data Vital Signs (Past 12 Hours) Vital Signs Temp Pulse Pulse Resp BP BP Pulse Ox 06/22/19 08:41 71 167/91 H 06/22/19 07:07 36 C L 71 18 161/93 H 94 06/22/19 06:40 36 C L 71 16 161/83 H 94 06/22/19 06:24 71 18 167/91 H 95 06/22/19 05:48 66 18 153/86 H 96 06/22/19 05:13 79 18 178/91 H 94 06/22/19 04:47 74 17 187/82 H 96 06/22/19 04:27 63 17 195/113 H 95 06/22/19 02:34 20 207/114 H 95 06/22/19 01:11 36.7 C 90 20 240/118 H 98
--- NOTE | 2019-06-22 10:24 | Anesthesiology Consultation ---
Date of Service June 22, 2019 Assessment & Plan (1) Encounter for pre-operative examination: Chart Review Chart Review: Acceptable Risk for Surgery and Patient NOT seen in Pre Admission Testing Consults Requested none ASA ASA3 Proposed Anesthesia Anesthesia Type: General Risk / Benefits Reviewed With: PT / POA / Parent / Guardian, Accepts Plan and I nformed Consent Obtained History Surgery Operation Date: 06/22/19 07:00 Proposed Procedures p Cystoscopy, Right Ureteroscopy, Laser Lithotripsy, Stent Placement - Kameron Hardy II, DO Height/Weight Height: 5 ft 8 in Weight: 97 kg Allergies Allergy/AdvReac Type Severity Reaction Status Date / Time Penicillins Allergy Unknown STRONG Verified 06/22/19 01:55 FAMILY HX-NEVER USED. Sulfa (Sulfonamide AdvReac Severe SEVERE N&V Verified 06/22/19 01:55 Antibiotics) acetaminophen [From Percocet] AdvReac Palpitation Verified 06/22/19 07:17 s adhesive AdvReac Rash Verified 06/22/19 07:17 oxycodone [From Percocet] AdvReac Palpitation Verified 06/22/19 07:17 s Medications Home Medications Medication Instructions Recorded Confirmed Last Taken acetaminophen [Tylenol Arthritis 650 mg PO DIRECTED PRN 06/22/19 06/22/19 Unknown Pain] diphenhydramine-acetaminophen 1 tab PO DIRECTED PRN 06/22/19 06/22/19 Unknown [Tylenol PM Extra Strength] Active Medications Generic Name Dose Route Start Last Admin Trade Name Freq PRN Reason Stop Dose Admin Potassium Chloride/Sodium Chloride 20 meq in 1,000 mls @ 100 mls/hr 06/22/19 07:30 06/22/19 07:47 Normal Saline W/20 Meq Kcl IV 07/22/19 07:29 100 mls/hr .Q10H DARIUS Administration Ioversol 125 ml 06/22/19 04:17 06/22/19 04:17 Optiray 320 125ml IV 06/26/19 04:16 118 ml ONCE PRN Administration Interaction Checking Metoprolol Tartrate 5 mg 06/22/19 08:00 06/22/19 08:41 Lopressor IV 07/22/19 07:59 5 mg Q4 DARIUS Administration Nitroglycerin 1 inch 06/22/19 07:00 06/22/19 07:47 Nitro-Bid 2% EXT 07/22/19 06:59 1 inch Q6H DARIUS Administration NPO Date Last Intake of Fluids: 06/21/19 Time Last Intake of Fluids: 19:00 Date Last Intake of Solids: 06/21/19 Time Last Intake of Solids: 19:00 Past Medical History Medical History Encephalitis (Resolved) Kidney stones 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 Past Surgical History Surgical History H/O knee surgery Bilateral History of ankle surgery Left History of foot surgery Right Past Anesthesia History No Hx of Anesthesia Complications History of PONV No Hx of PONV and No Hx of Motion Sickness Social History Smoking Status: Never smoker Hx Alcohol Use: No alcohol intake frequency: holidays/special occasions only Hx Substance Use: No Review of Systems Positive for nausea Patient denies active symptoms of GERD Physical Exam Vital Signs Last Vital Signs Temp 36.4 C L 06/22/19 10:37 Pulse 66 06/22/19 10:37 Resp 16 06/22/19 10:37 BP 169/83 H 06/22/19 10:37 Pulse Ox 95 06/22/19 10:37 Constitutional + obese ENMT Mouth: no TMJ abnormality and oral opening not small Thyromental Distance: < 3.5 Finger Breadths Mallampati Class: II Neck normal visual inspection, + short neck and + thick neck; neck extension not limited Respiratory normal respiratory effort Auscultation: lungs clear to auscultation bilaterally Cardiovascular Rate/Rhythm: regular rate and regular rhythm Heart Sounds: no murmur Vessels: no carotid bruit Neurologic moves all extremities Psychiatric Orientation: alert and oriented x 3 Testing Laboratory Results 06/22/19 01:50 06/22/19 01:50 PT 10.0 Seconds (9.0-12.0) 06/22/19 01:50 INR 1.0 (0.9-1.1) 06/22/19 01:50 APTT 28.0 Seconds (21.0-31.0) 06/22/19 01:50 Urine Color Yellow 06/22/19 02:15 Urine Appearance Clear (Clear) 06/22/19 02:15 Urine pH 6.0 (4.5-7.5) 06/22/19 02:15 Ur Specific [place] 1.016 (1.000-1.030) 06/22/19 02:15 Urine Protein 1+ (Negative) H 06/22/19 02:15 Urine Glucose (UA) Negative (Negative) 06/22/19 02:15 Urine Ketones Negative (Negative) 06/22/19 02:15 Urine Nitrite Negative (Negative) 06/22/19 02:15 Ur Leukocyte Esterase 2+ (Negative) H 06/22/19 02:15 Urine WBC (Auto) 10-30 /hpf (0-5) H 06/22/19 02:15 Urine RBC (Auto) >30 /hpf (0-4) H 06/22/19 02:15 U Hyaline Cast (Auto) 1-5 /lpf (0-5) 06/22/19 02:15 U Epithel Cells (Auto) 0-5 /lpf (0-5) 06/22/19 02:15 Urine Bacteria (Auto) 2+ (Negative) H 06/22/19 02:15 06/22/19 02:06 POC Glucose (other) 115 H Electrocardiogram Date: 06/22/19 Findings: + NSR @ (67) T wave abnormality, consider lateral ischemia
[2019-06-22] MEDS ORDERED: PROMETHAZINE HCL 12.5 MG in SODIUM CHLORIDE 0.9% 50 ML IV PRN (10:27)
[2019-06-22] MEDS ORDERED: ATROPINE SULFATE 0.1 MG/ML 10ML SYR IV PRN (10:27)
[2019-06-22] MEDS ORDERED: fentaNYL citrate 100 MCG/2 ML VIAL IV PRN (10:27)
[2019-06-22] MEDS ORDERED: ePHEDrine sulfate 50 MG/ML AMP IV PRN (10:27)
[2019-06-22] MEDS ORDERED: fentaNYL citrate 100 MCG/2 ML VIAL ONE (11:23)
[2019-06-22] MEDS ORDERED: MIDAZOLAM HCL 1 MG/ML 2ML VIAL ONE (11:23)
[2019-06-22] MEDS ORDERED: LIDOCAINE HCL 2% 2 ML VIAL/AMP(20MG/ML) INFIL ONE (11:23)
[2019-06-22] MEDS ORDERED: DEXAMETHASONE SOD INJ 4 MG/ML VIAL ONE (11:23)
[2019-06-22] MEDS ORDERED: SUCCINYLCHOLINE CHLORIDE 20 MG/ML 10 ML VIAL ONE (11:23)
[2019-06-22] MEDS ORDERED: PROPOFOL IV EMULSION 10 MG/ML 20 ML VIAL IV ONE (11:23)
[2019-06-22] MEDS ORDERED: IOTHALAMATE MEGLUMINE II 17.2% 250 ML VIAL ONE (11:38)
--- NOTE | 2019-06-22 12:06 | Operative Report ---
Post Operative Report Pre & Post Diagnosis Operation Date: 06/22/19 07:00 Pre-Op Diagnosis: Obstructing right ureteral stone Same Procedure Cystoscopy with right retrograde pyelogram and stent placement. Operation Date: 06/22/19 07:00 <No data on this case meets the specified criteria> Surgeon Kameron Hardy, II, DO Employment Clerk None Estimated Blood Loss 0 Findings Consistent with Post-Op Diagnosis Specimens None Drains 6 Fr Multilength Anesthesia Type General Complications none Disposition Disposition: Recovery Room Indications Patient with obstructing stone and intractible nausea and vomiting. Risks and benefits discussed. Description of Procedure Patient was consented and brought back to the operating room. Patient was placed under anesthesia in the supine position and moved to the dorsal lithotomy position. Patient was prepped and draped in the regular sterile fashion. A time out was completed. A 30degree Cystoscope was placed into the bladder and the entire bladder was examined. The UO's were identified. The right was cannulized with a catheter and a retrograde pyelogram was completed. A wire was then placed. The stone was difficult to go around but was able to be bypassed. With the wire in place, a 6 Fr Double J stent was placed. It was confirmed with fluoroscopy. With the stent in place, the bladder was emptied. The scope was removed. The patient was cleaned, aroused from anesthesia, and transferred to the pacu in stable condition having tolerated the procedure well with no complications. I was present and participated in all aspects of the procedure. The patient will be monitored in the PACU until transferred. I attest to the content of the Intraoperative Record and any orders documented therein. Any exceptions are noted below.
[2019-06-22] MEDS ORDERED: ROCURONIUM BROMIDE 10 MG/ML 5 ML VIAL ONE (12:36)
--- NOTE | 2019-06-22 12:41 | Fluoroscopy Report ---
FL retrograde includes kub CLINICAL HISTORY: RT STENT COMPARISON STUDY: CTA of the abdomen and pelvis August 22, 2019. FLUOROSCOPY TIME: 32 seconds. FLUOROSCOPIC IMAGES: 4 FINDINGS: These images demonstrate cannulation of the right ureter with placement of a right ureteral stent which appears appropriately positioned. There is right hydronephrosis. IMPRESSION: Fluoroscopic images from right retrograde exam with ureteral stent insertion. Electronically signed by: Richard Andrade M.D. 06/22/2019 12:40 PM
--- NOTE | 2019-06-22 13:23 | Anesthesiology Progress Note ---
Date of Service June 22, 2019 Anesthesia Post Procedure Vital Signs Vital Signs: Temp Pulse Pulse Pulse Resp BP BP 06/22/19 13:15 61 14 163/77 H 06/22/19 13:05 36.4 C L 60 14 170/79 H 06/22/19 12:55 63 14 165/90 H 06/22/19 12:45 63 14 161/79 H 06/22/19 12:35 75 16 179/82 H 06/22/19 12:26 36.0 C L 75 17 182/89 H 06/22/19 10:37 36.4 C L 66 16 169/83 H 06/22/19 08:41 71 167/91 H 06/22/19 07:07 36 C L 71 18 161/93 H 06/22/19 06:40 36 C L 71 16 161/83 H 06/22/19 06:24 71 18 167/91 H 06/22/19 05:48 66 18 153/86 H 06/22/19 05:13 79 18 178/91 H 06/22/19 04:47 74 17 187/82 H 06/22/19 04:27 63 17 195/113 H 06/22/19 02:34 20 207/114 H 06/22/19 01:11 36.7 C 90 20 240/118 H Pulse Ox 06/22/19 13:15 95 06/22/19 13:05 95 06/22/19 12:55 94 06/22/19 12:45 99 06/22/19 12:35 96 06/22/19 12:26 95 06/22/19 10:37 95 06/22/19 08:41 06/22/19 07:07 94 06/22/19 06:40 94 06/22/19 06:24 95 06/22/19 05:48 96 06/22/19 05:13 94 06/22/19 04:47 96 06/22/19 04:27 95 06/22/19 02:34 95 06/22/19 01:11 98 Pain Intensity Right Flank: Pain Intensity: 5 Transfer of Care Handoff Completed per policy Notes Mental Status: alert / awake / arousable and participated in evaluation Patient Amnestic to Procedure: Yes Nausea / Vomiting: adequately controlled Pain: adequately controlled Airway Patency, RR, SpO2: stable & adequate BP & HR: stable & adequate Hydration State: stable & adequate Anesthetic Complications: no major complications apparent and Pt Satisfied with anesthetic care
[2019-06-22] MEDS: cefTRIAXone SODIUM 2,000 MG in DEXTROSE 5% 50 ML IV SCH (13:35)
[2019-06-22] MEDS ORDERED: ONDANSETRON INJ 2 MG/ML 2 ML VIAL IV ONE (14:30)
--- NOTE | 2019-06-22 15:27 | Cardiology Consultation ---
Date of Consultation June 22, 2019 Assessment & Plan (1) Hypertensive urgency: Patient did present with markedly elevated blood pressure. This was in the setting of a kidney stone and obstructive uropathy. She was administered some anti hypertensives and analgesics with improvement in her blood pressure. There is no evidence of end-organ damage. Head CT was normal. No evidence of cardiac ischemia based on her biomarkers. She did not have any ocular disturbance. There is no evidence of kidney dysfunction with the exception of her obstruction. It is very likely that she has longstanding essential hypertension. Secondary causes seems less likely given her age. She appears to have normal renal arteries on her CT scan. She is not taking estrogen supplements. She does not abuse alcohol. There could be a contribution from obstructive sleep apnea although she did not report symptoms consistent with that diagnosis. I think she should start a standard antihypertensive regimen. I think we will stop her nitroglycerin and p.r.n. metoprolol in favor of a daily diuretic and c alcium channel dl. An GAL-inhibitor would also be an attractive option but given her history of nephrolithiasis, perhaps it is best to avoid any agent which compromises kidney function. She has not have any other indication for specific antihypertensive with the exception of her cardiac hypertrophy. History of Present Illness Reason for Consultation: Hypertension Requesting Physician: Lore Attending Physician: Will Torrez MD History of Present Illness The patient is a 64-year-old woman with a history of nephrolithiasis who presented to the emergency room with symptoms of headache, nausea and flank discomfort. Patient states that the symptoms began yesterday and became progressive in nature prompting her to seek medical attention. She apparently has had similar episodes in the past. She was discovered to have obstructive uropathy but also hypertension. It seems that during her initial evaluation the patient blood pressure was markedly elevated. In the setting of her reported headache she did undergo an evaluation for hypertensive emergency. This involved a CT of the head which did not demonstrate any significant abnormality. Patient was initiated on nitroglycerin transdermally, hydralazine and metoprolol intravenously. Her blood pressure is improved in this morning she underwent urologic procedure for relief of her obstruction. At the time my interview the patient has some residual nausea. She denies headache currently. She has not been aware of any elevated blood pressures but freely admits that she has not taken her blood pressure recently nor has she visit physician. She states she was diagnosed with a pneumonia in the fall and at that time was also reported to have had high blood pressures. Generally she is an active person who is able to engage in routine activity without limiting dyspnea or symptoms of chest pain. She does some gardening and some walking. She denies dizziness or lightheadedness. She has not experience palpitations. She generally does not have headaches. She has not report any visual disturbances recently or last evening. She claims to monitor her sodium but not follow a low-sodium diet. She does not drink alcohol. Allergies Allergy/AdvReac Type Severity Reaction Status Date / Time Penicillins Allergy Unknown STRONG Verified 06/22/19 01:55 FAMILY HX-NEVER USED. Sulfa (Sulfonamide AdvReac Severe SEVERE N&V Verified 06/22/19 01:55 Antibiotics) acetaminophen [From Percocet] AdvReac Palpitation Verified 06/22/19 07:17 s adhesive AdvReac Rash Verified 06/22/19 07:17 oxycodone [From Percocet] AdvReac Palpitation Verified 06/22/19 07:17 s Home Medications Home Medications Medication Instructions Recorded Confirmed Type acetaminophen [Tylenol Arthritis 650 mg PO DIRECTED PRN 06/22/19 06/22/19 History Pain] diphenhydramine-acetaminophen 1 tab PO DIRECTED PRN 06/22/19 06/22/19 History [Tylenol PM Extra Strength] Patient History Medical History Encephalitis (Resolved) Kidney stones Obesity Surgical History H/O knee surgery Bilateral History of ankle surgery Left History of foot surgery Right Social History Preferred Language: [place] Communication Ability: Effective Beliefs That Will Affect Care: None Current Living Situation: Alone Feels Safe at Home: Yes Smoking Status: Never smoker Hx Alcohol Use: No Hx Substance Use: No Review of Systems Review of Systems: All systems reviewed & are unremarkable except as noted in HPI & below Physical Exam Physical Exam: She is alert and oriented x3. She appeared somewhat uncomfortable due to nausea. Mood affect appear normal. She answered all questions appropriately. HEENT: Sclerae are anicteric. Pupils are equal and reactive to light and accommodation. Extraocular movements were intact. Neuro: Cranial nerves intact Neck: Examination of the submandibular region did not reveal any significant lymphadenopathy. Carotids are palpable bilaterally and free of bruits on auscultation. There was no evidence of jugular venous distention. The thyroid was not enlarged. Lungs: Lungs are clear to auscultation bilaterally. There are no rales wheezes or rhonchi. She has normal respiratory effort without use of accessory muscles. There is normal pulmonary excursion. Cardiac: The rhythm was regular. S1 and S2 were normal. There are no murmurs on examination. The PMI was not markedly displaced on palpation. Abdomen: The abdomen was soft and nontender. Extremities: Patient has bilateral radial pulses that are equal in intensity. There is no evidence cyanosis or clubbing. Mild bilateral lower extremity edema Skin: There are no rashes noted on examination today. Results & Data Vital Signs (Past 12 Hours) Vital Signs Temp Pulse Pulse Pulse Resp BP BP 06/22/19 13:35 36.5 C 64 64 16 169/79 H 169/79 H 06/22/19 13:15 61 14 163/77 H 06/22/19 13:05 36.4 C L 60 14 170/79 H 06/22/19 12:55 63 14 165/90 H 06/22/19 12:45 63 14 161/79 H 06/22/19 12:35 75 16 179/82 H 06/22/19 12:26 36.0 C L 75 17 182/89 H 06/22/19 10:37 36.4 C L 66 16 169/83 H 06/22/19 08:41 71 167/91 H 06/22/19 07:07 36 C L 71 18 161/93 H 06/22/19 06:40 36 C L 71 16 161/83 H 06/22/19 06:24 71 18 167/91 H 06/22/19 05:48 66 18 153/86 H 06/22/19 05:13 79 18 178/91 H 06/22/19 04:47 74 17 187/82 H 06/22/19 04:27 63 17 195/113 H Pulse Ox 06/22/19 13:35 92 06/22/19 13:15 95 06/22/19 13:05 95 06/22/19 12:55 94 06/22/19 12:45 99 06/22/19 12:35 96 06/22/19 12:26 95 06/22/19 10:37 95 06/22/19 08:41 06/22/19 07:07 94 06/22/19 06:40 94 06/22/19 06:24 95 06/22/19 05:48 96 06/22/19 05:13 94 06/22/19 04:47 96 06/22/19 04:27 95 Laboratory Results Abnormal Lab Results 06/22/19 06/22/19 06/22/19 01:50 01:50 01:50 WBC 12.64 H RBC 5.12 Hgb 16.2 H POC Hgb Hct 47.2 H POC Hct MCV 92.2 MCH 31.6 MCHC 34.3 RDW Std Deviation 43.4 RDW Coeff of Marcos 12.8 Plt Count 334 MPV 9.6 PT 10.0 INR 1.0 APTT 28.0 PTT Ratio 1.0 POC Sodium Sodium 142 POC Potassium Potassium 3.8 POC Chloride Chloride 109 H Carbon Dioxide 27 POC Total CO2 Anion Gap 6.0 POC Anion Gap POC BUN BUN 11 Creatinine 1.19 POC Creatinine Est Cr Clr Drug Dosing Not Reportable Est GFR ( Amer) 56.7 Est GFR (Non-Af Amer) 48.9 BUN/Creatinine Ratio 9.2 L Glucose 107 H POC Glucose (other) Calcium 9.5 POC Ioniz Calcium Dk Total Bilirubin 0.8 AST 22 ALT 28 Alkaline Phosphatase 118 H Troponin I < 0.015 Total Protein 8.0 Albumin 4.2 Globulin 3.8 Albumin/Globulin Ratio 1.1 TSH 4.630 H Free T4 1.16 Specimen Hemolysis Urine Color Urine Appearance Urine pH POC Urine pH Ur Specific [place] Urine Protein POC Urine Protein Urine Glucose (UA) POC Ur Glucose (UA) Urine Ketones POC Urine Ketones Urine Blood POC Urine Blood Urine Nitrite POC Urine Nitrite Urine Bilirubin POC Urine Bilirubin Urine Urobilinogen POC Urine Urobilinogen Ur Leukocyte Esterase POC U Leukocyte Esteras Urine WBC (Auto) Urine RBC (Auto) U Hyaline Cast (Auto) U Epithel Cells (Auto) Urine Bacteria (Auto) 06/22/19 06/22/19 06/22/19 02:06 02:15 02:15 WBC RBC Hgb POC Hgb 16.3 H Hct POC Hct 48 H MCV MCH MCHC RDW Std Deviation RDW Coeff of [place] Plt Count MPV PT INR APTT PTT Ratio POC Sodium 143 Sodium POC Potassium 3.9 Potassium POC Chloride 107 Chloride Carbon Dioxide POC Total CO2 25 Anion Gap POC Anion Gap 16.0 POC BUN 11 BUN Creatinine POC Creatinine 1.1 Est Cr Clr Drug Dosing Est GFR ( Amer) Est GFR (Non-Af Amer) BUN/Creatinine Ratio Glucose POC Glucose (other) 115 H Calcium POC Ioniz Calcium Dk 1.16 Total Bilirubin AST ALT Alkaline Phosphatase Troponin I Total Protein Albumin Globulin Albumin/Globulin Ratio TSH Free T4 Specimen Hemolysis Urine Color Yellow Urine Appearance Clear Urine pH 6.0 POC Urine pH 6 Ur Specific [place] 1.016 Urine Protein 1+ H POC Urine Protein Trace H Urine Glucose (UA) Negative POC Ur Glucose (UA) Normal Urine Ketones Negative POC Urine Ketones Negative Urine Blood 3+ H POC Urine Blood 250 H Urine Nitrite Negative POC Urine Nitrite Negative Urine Bilirubin Negative POC Urine Bilirubin Negative Urine Urobilinogen Negative POC Urine Urobilinogen Not Reportable Ur Leukocyte Esterase 2+ H POC U Leukocyte Esteras Trace H Urine WBC (Auto) 10-30 H Urine RBC (Auto) >30 H U Hyaline Cast (Auto) 1-5 U Epithel Cells (Auto) 0-5 Urine Bacteria (Auto) 2+ H 06/22/19 06/22/19 07:07 13:48 WBC RBC Hgb POC Hgb Hct POC Hct MCV MCH MCHC RDW Std Deviation RDW Coeff of [place] Plt Count MPV PT INR APTT PTT Ratio POC Sodium Sodium POC Potassium Potassium POC Chloride Chloride Carbon Dioxide POC Total CO2 Anion Gap POC Anion Gap POC BUN BUN Creatinine POC Creatinine Est Cr Clr Drug Dosing Est GFR ( Amer) Est GFR (Non-Af Amer) BUN/Creatinine Ratio Glucose POC Glucose (other) Calcium POC Ioniz Calcium Dk Total Bilirubin AST ALT Alkaline Phosphatase Troponin I < 0.015 < 0.015 Total Protein Albumin Globulin Albumin/Globulin Ratio TSH Free T4 Specimen Hemolysis Urine Color Urine Appearance Urine pH POC Urine pH Ur Specific [place] Urine Protein POC Urine Protein Urine Glucose (UA) POC Ur Glucose (UA) Urine Ketones POC Urine Ketones Urine Blood POC Urine Blood Urine Nitrite POC Urine Nitrite Urine Bilirubin POC Urine Bilirubin Urine Urobilinogen POC Urine Urobilinogen Ur Leukocyte Esterase POC U Leukocyte Esteras Urine WBC (Auto) Urine RBC (Auto) U Hyaline Cast (Auto) U Epithel Cells (Auto) Urine Bacteria (Auto) Diagnostic Findings Echocardiogram performed today did reveal evidence of ventricular hypertrophy, otherwise normal LV function. CT of the head obtained on admission did not reveal any acute intracranial abnormality Abdominal CT did not reveal any evidence of aortic dissection or aneurysm. She did have a stone obstructing the right ureter. ECG Additional Comments: EKG obtained at the time of admission revealed normal sinus rhythm with nonspecific ST and T-wave changes. PG Care Time/CCT Total # of Minutes Spent Total Time Spent with Patient: Total time spent is greater than 50% in coordination of care (as documented) at patient's floor/unit and/or counseling patient:
[2019-06-22] MEDS ORDERED: AMLODIPINE BESYLATE 5 MG TAB PO ONE (15:30)
[2019-06-22] MEDS ORDERED: ACETAMINOPHEN 325 MG TAB PO PRN (20:29)
[2019-06-22] MEDS ORDERED: ACETAMINOPHEN 325 MG TAB ONE (20:31)
[2019-06-23] MEDS: NSS + 20MEQ KCL 20 MEQ/1,000 ML BAG IV SCH (04:44)
[2019-06-23 08:42] LABS: Basophils # (auto) 0.01 K/uL (0-0.2); Basophils % (auto) 0.1 %; Hematocrit (blood only) 41.2 % (37-47); Immature Granulocytes # (auto) 0.04 K/uL (0.00-0.02); Immature Granulocytes % (auto) 0.3 %; Lymphocytes # (auto) 1.29 K/uL (1.2-3.4); Lymphocytes % (auto) 8.5 %; Mean Corpuscular Volume 92.4 fL (80-100); Mean Platelet Volume 8.9 fL (7.4-10.4); Monocytes % (auto) 5.2 %; Neutrophils # (auto) 13.11 K/uL (1.4-6.5); Neutrophils % (auto) 85.9 %; Platelet Count 312 K/uL (130-400); RDW Coefficient of Variation 13.4 % (11.5-14.5); RDW Standard Deviation 45.2 fL (36.4-46.3); Red Blood Count 4.46 M/uL (4.2-5.4); White Blood Count 15.25 K/uL (4.8-10.8)
[2019-06-23] MEDS ORDERED: AMLODIPINE BESYLATE 5 MG TAB PO SCH (09:00)
[2019-06-23] MEDS ORDERED: hydroCHLOROthiazide 25 MG TAB PO SCH (09:00)
[2019-06-23 09:08] LABS: BUN Creatinine Ratio 10.1 (10-20); Calcium 8.6 mg/dl (8.5-10.1); Creatinine Clr Calc Pharmacy 60.7 ml/min; Est GFR (African American) 57.8; Est GFR (Non-African American) 49.9
[2019-06-23] MEDS: cefTRIAXone SODIUM 2,000 MG in DEXTROSE 5% 50 ML IV SCH (11:41)
--- NOTE | 2019-06-23 12:31 | Discharge Summary ---
Date of Service June 23, 2019 Admission HPI Per Admitting Provider Patient is a 64-year-old female with a past medical history including kidney stones about 20 years ago that required surgical removal, who developed acute onset of right flank pain, nausea and vomiting, headache and elevated blood pressure prior to arrival. Principal Diagnosis ureterolithiasis Discharge Exam Vitals noted and within normal limits with the exception of hypertension 160/73. GENERAL: Awake, alert to person, place, and time, nontoxic-appearing, in no distress. HENT: Normocephalic, atraumatic. Mucus membranes appear moist. EYES: Normal conjunctiva. Sclera non-icteric. EOMI. NECK: Supple. Full range of motion. No JVD. RESPIRATORY: Clear to auscultation. Normal work of breathing. CARDIAC: Regular rate, normal rhythm. Extremities warm and well perfused, 2+ radial pulses bilaterally; 2+ posterior tibialis pulses bilaterally. ABDOMEN: Soft, non-distended. No tenderness to palpation in all four quadrants. No rebound or guarding. No masses. Bowel sounds are normal. NO CVA tenderness bilaterally. LOWER EXTREMITIES: Inspection of calves reveal equal size bilaterally. They are non-tender. No edema. No discoloration. NEURO: No gross focal motor deficits noted. Sensation in tact. CN II-XII grossly in tact. . SKIN: Rash not present. No jaundice noted. Significant lesions not present. PSYCH: Appropriate mood and affect. Cooperative. Pt's twin sister is present at the bedside. Exam as done by Prema Dumont MD, Retail Customer Service Specialist. Discharge Data Allergies Allergy/AdvReac Type Severity Reaction Status Date / Time Penicillins Allergy Unknown STRONG Verified 06/22/19 01:55 FAMILY HX-NEVER USED. Sulfa (Sulfonamide AdvReac Severe SEVERE N&V Verified 06/22/19 01:55 Antibiotics) acetaminophen [From Percocet] AdvReac Palpitation Verified 06/22/19 07:17 s adhesive AdvReac Rash Verified 06/22/19 07:17 oxycodone [From Percocet] AdvReac Palpitation Verified 06/22/19 07:17 s Consultations 06/22/19 04:32 ED Decision to Admit Stat 06/22/19 06:56 Consult Cardiology Routine Consult Case Management - Discharge Planning Routine Consult Urology Routine 06/22/19 07:15 Consult Patient Rep / Service Excellence [Consult Patient Services] Routine Procedures Performed Operation Date: 06/22/19 07:00 Actual Procedures p Cystoscopy, Right Retrograde Ureteroscopy, Right Ureteral Stent Placement - Kameron Hardy II, DO Ordered Studies 06/22/19 01:33 CT head/brain wo con Urgent 06/22/19 02:49 CT angio abd pelvis wo/w con Urgent 06/22/19 11:00 FL retrograde includes kub Routine Hospital Course (1) Obstruction of right ureteropelvic junction (UPJ) due to stone: Patient is an otherwise healthy 64-year-old female with PMH including kidney stones about 20 years ago that required surgical removal, who developed acute onset of right flank pain, nausea and vomiting, headache and elevated blood pressure prior to arrival. Obstruction of RT UPJ due to stone: -5 mm obstructing right UPJ stone/right hydroureteronephrosis/abnormal urinalysis- -s/p right ureteral stent -doing well, requiring no pain medications -d/w Dr. Hardy - plan for outpatient follow up in 1 week and possible lithotripsy then. UTI >100K e. coli, and in the setting of a stone could be considered a complicated UTI - finish 7 full day course of abx - cefdinir sent to pharmacy, discussed with pt. (2) Hypertensive urgency: Hypertensive urgency/abnormal EKG with T wave inversions suggesting lateral ischemia- -Initial systolic blood pressure in the ED was 260 Now improved to 167 -serial cardiac enzymes negative -responsive to IV then PO antihypertensives (hydralazine 10 mg IV, followed by Cardizem 10 mg IV in the ED.) -TTE 06/22/19 shows moderate LVH, normal EF 55-60%, grade I diastolic disfunction. -seen by Dr. Reddy here, antihypertensives as below. Likely longstanding untreated/undiagnosed essential HTN. Plan: -to home with amlodipine 5mg daily, HCTZ 25mg qam -close f/u with PCP (Dr. Leonel Bradley) in 1-2 weeks - personally sent messaging via clinic EMR to [facility] today. -given EKG changes/HTN urgency - low threshold for order stress echo evaluation. Will need routine BMP given initiation of HCTZ. (3) Abnormal EKG: See above (4) Hydroureteronephrosis: See above Total Time Total Time Spent Total Time Spent (In Minutes): <30 Discharge Plan Discharge Items Patient Disposition: Home - Self-Care Reason For Visit: ABNORMAL EKG,5MM R UPJ STONE Discharge Diagnosis: RT UPJ OBSTRUCTIVE STONE Condition: Fair Discharge Goals: Decrease discomfort, Diagnostic testing, Improve function, Increase independence and Learn about illness Activity: Per 'Additional Instructions' section Bathing: No limitations Exercise/Sports: Gradually increase as tolerated Non-emergency contact: Primary Care Provider and Urologist Call non-emergency contact if: you have any medication questions Follow-up/Referrals: PCP,NO [Primary Care Provider] - Diet: Heart Healthy Addtl Provider Instructions: You were admitted due to right sided pain that was found to be due to an obstructive kidney stone. Urology saw you and placed a stent to relieve the back up in the kidney which is why you are urinating so well now, however the stone is still there and you will need to be seen in the urology office in 1 week for further management. You also were found to have significant elevated blood pressure accompanied by EKG changes which suggested strain on your heart - since you are not on medication for blood pressure and were not known to have previous cardiac h istory (like a heart attack) we consulted cardiology to see you. Your echocardiogram of your heart shows no structural abnormalities, which is reassuring! However, your blood pressure will need to be re-evaluated, especially since starting a new medication to treat it. Please follow up with Dr. Bradley in the [facility] clinic (right across the street from the hospital) within 1-2 weeks upon discharge. If you experience any chest pain or difficulty breathing or feeling faint or are concerned, I do strongly suggest you call the clinic ([phone]) or call 911 to be evaluated in the ER. take TYLENOL as needed (please do not exceed 3250mg/day). -Continue the blood pressure medicine started here - amlodipine and hydrochlorathiazide as prescribed, daily -FINISH the antibiotic sent to your pharmacy "cefdinir" to be taken twice a day, take with food, and glass of water. Keep your follow up appt with Urology (if you don't hear from their office to schedule an appointment, be sure to call them next week to set that up - [address] [place] [address], [place] [id number] ). Be Well A Tim Prescriptions: New amlodipine 5 mg tablet 5 mg PO DAILY 30 Days Qty: 30 RF: 0 hydrochlorothiazide 25 mg Tablet 25 mg PO QAM 30 Days Qty: 30 RF: 0 cefdinir 300 mg capsule 300 mg PO BID Qty: 12 RF: 0 Continued acetaminophen [Tylenol Arthritis Pain] 650 mg Tablet Extended Release 650 mg PO DIRECTED PRN (Reason: Pain) RF: 0 diphenhydramine-acetaminophen [Tylenol PM Extra Strength] 25-500 mg Tablet 1 tab PO DIRECTED PRN (Reason: PAIN/SLEEP) RF: 0 Stand-Alone Forms: [facility] Discharge Orders: Discharge Order (Routine); Ordered 06/23/19 Ordered By: Prema Dumont Admission Data Admit Date/Time: 06/22/19 05:32 Attending Provider: Will Torrez Admit Provider: Will Torrez Primary Care Provider: PCP,NO Other Providers: Will Torrez ; Raymond Lee ; Campbell Driver Service: Surgical Services Other Interventions: Discharge Summary Assessment (RN) Last Done: 06/23/19 13:41 DC Date/Time DO NOT enter until pt leaves facility: 06/23/19 14:11 Supervising Physician Co-Signing Physician Notes I personally examined the patient and verified all mancuso points of history and exam, discussed case, and agree with decision making with Dr Bradley feeling better, and would like to go home. Twin sister present and ensure she will try to help the patient maintain better follow-up. Reviewed/reiterated findings and patient and sister expressed understanding. Vitals noted, in general she is awake and alert pleasant no distress. HEENT normocephalic atraumatic mucous membranes moist. Breathing unlabored no accessory muscle use good effort. ureterolithiasis - post procedure w urology. doing betterstable for outpatient follow-up with urology Positive urine culturefairly impossible to distinguish between contaminant/asymptomatic bacteriuria or a mild but sure infection in this context. Given the risk for decompensation, it is safer to treat. She has been improving on ceftriaxone, will finish out a course of treatment with Cefdinir marked hypertensive response / LVH - HTN management. EKG changes, with hindsight, appears to have likely been LVH related. Given her risks and uncontrolled hypertension for probably a decade, while she is not showing any typical cardiac symptoms, certainly one would have a low threshold to evaluate further with something such as a stress test should she develop any dyspnea on exertion chest pain/pressure etc. Resident Activity Tracking Resident Involvement: Resident Care Provided Care Provided: Adult [facility] Medicine
== END 2019-06-23 14:11 | disposition home or self-care (01) | DRG 660 ==
LOC: ED 01:03 → 2S 05:32 → 3W 19:06

== ENCOUNTER 2023-12-27 15:52 | Inpatient (IN) ==
--- NOTE | 2023-12-27 16:04 | ED Triage Note ---
Date of Service December 27, 2023 Provider in Triage Author: Alida Rivas History of Present Illness This patient was briefly evaluated while in triage. An abbreviated physical exam was performed. This patient is a 68-year-old Female who presents to the ED for evaluation of dehydration. She was at her PCP just prior to arrival and her BP was really low, she is exhausted, and her heart is racing. She was sent to get an EKG and the patient seemed to pass out. The patient states that her BP meds were causing some dehydration and electrolyte problems. Denies chest pain, SOB, abdominal pain, nausea, or vomiting. No fevers. Has a mild cough and nasal congestion. Vital signs in triage: BP 82/50, HR 118. Physical Exam GENERAL: The patient appears weak, mildly pale, and likely dehydrated. Non- toxic and in no acute distress. HEENT: Pupils equal. No obvious scleral icterus. HEART: Tachycardic. LUNGS: Clear to auscultation. No accessory muscle use. ABDOMEN: Soft, non-tender to palpation. NEURO: Alert and oriented. No obvious neurological deficits on quick neuro exam. Initial orders for labs and / or imaging were placed and patient was taken directly back to a room due to her hypotension and tachycardia. Please see further documentation for the full ED course. MDM / Impression Impression Impression: Lesion of lung, Pneumonia Impression: Pneumonia Qualifiers: Pneumonia type: due to unspecified organism Laterality: right Lung location: unspecified part of lung Qualified Code(s): J18.9 - Pneumonia, unspecified organism
[2023-12-27] MEDS: SODIUM CHLORIDE 0.9% 1,000 ML IV STA (16:20)
--- NOTE | 2023-12-27 16:30 | XRay Report ---
XR chest 1V portable CLINICAL HISTORY: Chest pain, nonspecific TECHNIQUE: Single frontal radiograph of the chest was obtained. Comparison: Comparison is made to chest radiograph 09/08/2022 FINDINGS: No lines and tubes are seen. Calcified aortic knob is seen. Right lung is underinflated. There is air space opacity in the right lower lung. Small bilateral pleural effusions are seen. IMPRESSION: 1. Right lower lung airspace opacity likely represents atelectasis, with or without aspiration/pneum onia or eventration of the diaphragm. Clinical correlation is recommended and CT can be performed if there is concern for trauma or mass. 2. Blunting of the bilateral costophrenic angles may represent small effusions versus extrapleural f at. ACT 112: Negative or not required by law. Electronically signed by: Justin Kaiser M.D. 12/27/2023 4:28 PM
[2023-12-27 16:59] LABS: Basophils # (auto) 0.07 K/uL (0.00-0.20); Basophils % (auto) 0.4 %; Eosinophils # (auto) 0.07 K/uL (0.00-0.50); Eosinophils % (auto) 0.4 %; Hematocrit (blood only) 33.8 % (37.0-47.0); Hemoglobin 10.8 g/dl (12.0-16.0); Immature Granulocytes # (auto) 0.12 K/uL (0.01-0.20); Immature Granulocytes % (auto) 0.8 %; Lymphocytes # (auto) 1.21 K/uL (1.20-3.40); Lymphocytes % (auto) 7.6 %; Mean Corpuscular Hemoglobin 29.8 pg (25.0-34.0); Mean Corpuscular Volume 93.1 fL (80.0-100.0); Monocytes # (auto) 0.93 K/uL (0.11-0.59); Monocytes % (auto) 5.9 %; Neutrophils # (auto) 13.45 K/uL (1.40-6.50); Neutrophils % (auto) 84.9 %; Platelet Count 580 K/uL (130-400); RDW Standard Deviation 40.9 fL (36.4-46.3); Red Blood Count 3.63 M/uL (4.20-5.40); White Blood Count 15.85 K/ul (4.8-10.8)
[2023-12-27 17:16] LABS: Albumin Level 3.7 gm/dl (3.4-5.0); BUN Creatinine Ratio 18.5 (10-20); Bilirubin,Total 0.9 mg/dl (0.2-1.0); Calcium 9.6 mg/dl (8.6-10.3); Creatinine Clr Calc Pharmacy 27.6 ml/min; Est GFR (African American) 24.6 ml/min; Est GFR (Non-African American) 21.2 ml/min; Globulin 3.7 gm/dl (2.5-4.0); Potassium 3.7 mmol/L (3.5-5.1); Total Protein 7.4 gm/dl (6.0-8.3)
[2023-12-27 17:27] LABS: INR 1.1 (0.9-1.1); Partial Thromboplastin Time 28 Seconds (21-31); Prothrombin Time 11.8 Seconds (9.0-12.0)
[2023-12-27 18:15] LABS: Influenza A virus by PCR Negative (Neg); Influenza B virus by PCR Negative (Neg); RSV by PCR Negative (Neg); SARS CoV2 RNA(COVID-19) Ceph NEGATIVE (Negative)
[2023-12-27] MEDS: AZITHROMYCIN 250 MG TAB PO ONE (18:44)
[2023-12-27] MEDS: cefTRIAXone SODIUM 1,000 MG/50 ML BAG IV STA (18:45)
--- NOTE | 2023-12-27 19:03 | CT Scan Report ---
CT chest diagnostic wo con CLINICAL HISTORY: RLL pneumonia TECHNIQUE: Multidetector row helical CT of the chest was performed. Coronal and sagittal reformations were obtained. Automated dose lowering techniques and/or adjustment according to patient size were u tilized for this exam. CT DOSE: 570.54 mGy.cm Comparison: Comparison is made to CT chest 09/08/2022 FINDINGS: Lungs and pleura: Numerous pulmonary and pleural nodules are seen measuring up to 73 mm in the right middle lobe. These are new from prior exam. A right malignant effusion is seen with pleural masses. Heart and pericardium: Heart size is normal. No pericardial effusion. Vessels: Unremarkable. Mediastinum and cass: Unremarkable. Chest wall and lower neck: Unremarkable. Abdomen: Unremarkable. Bones: Degenerative changes in the thoracic spine. IMPRESSION: Numerous pulmonary nodules are seen as well as right pleural masses concerning for metastatic disease of unknown origin. The dominant nodule in the right mid lung corresponds to density seen on chest ra diograph. ACT 112: Positive. There are findings on this exam that require communication between the performing entity and the patient following Patient Test Result Information Act ([place] Act 112) guidelines. Electronically signed by: Justin Kaiser M.D. 12/27/2023 7:02 PM
--- NOTE | 2023-12-27 20:11 | History & Physical Report ---
Date of Service December 27, 2023 Assessment & Plan (1) Dyspnea: Plan: Patient experienced a presyncopal episode while at an outpatient nephrology appointment on 12/27 She reports feeling dizzy, and seeing spots/blurriness She reports ongoing, worsening CALDERON and fatigue since the beginning of November CXR revealed a RLL airspace opacity, with concerns for trauma or mass Chest CT (without contrast in the setting of STEWART) revealed numerous pulmonary nodules as well as a right pleural mass concerning for metastatic disease of unknown origin Etiology unclear ?Infectious versus metastatic disease; in the setting of Flovent use and none demarcated 73 mm nodule, will order Fungitell Pulmonary consulted Sputum culture ordered, pending Blood cultures ordered, pending (note: ordered after abx given in the ED) Leukocytosis at 15.85 with neutrophil predominance; afebrile COVID, flu, RSV negative Troponin WNL Procalcitonin mildly elevated at 0.80 EKG revealed sinus tachycardia at 117 bpm; QTc 479 Rocephin and azithromycin Incentive spirometry Flutter valve Zofran as needed for nausea/vomiting Acetaminophen as needed for pain/fever Supplemental O2 as needed A.m. CBC, BMP, mag (2) STEWART (acute kidney injury): Plan: BUN 43, creatinine 2.32 (baseline 1.53), EGFR 21.2 Hold lisinoprilHCTZ Avoid nephrotoxic agents BUN/creatinine 18.5 IV fluid resuscitation with Plasma-Lyte at 100mL/hr x2 Follow a.m. labs (3) UTI (urinary tract infection): Plan: UA positive on 12/23 Clinically, patient endorses darker urine Urine culture ordered, pending Rocephin (as above) (4) Hypertension: Plan: Hold lisinoprilHCTZ (5) Asthma: Plan: Albuterol inhaler as needed (6) Prediabetes: Plan: Hold metformin, empagliflozin A1c at 6.2% on 10/10/2023 T2DM diet BSG ACHS Hold insulin for now Plan Disposition: Admit to [facility] telemetry Full code T2DM diet VTE PPx: Heparin 5000 units SQ q12h History of Present Illness Chief Complaint: Hypotension, tachycardia Primary Care Provider: Riya Zelaya MD [place] is a 68-year-old female with PMH of right UPJ kidney stone, hydroureteronephrosis, ureteral lithiasis, HTN, asthma, osteopenia, CKD stage IIIb, psoriasis, and hypertriglyceridemia. She presented for hypotension and chest palpitations on 12/27 after a nephrology visit at Dr. Mcduffie's office. Patient went to appointment with her twin sister (Teetee), who she lives with, and reports that she had a spaced out episode where she was unresponsive and started falling to her side. The patient is unsure if she lost consciousness, but notes that she was feeling dizzy, and seeing "spots/colors". Patient's sister reports she thought she was having a stroke at the time; no prior medical history of stroke, but patient notes that her mother had a stroke. Patient reports that she was been feeling exhausted since she woke up this morning, and struggled to shower because it took a lot out of her. She has had a productive cough (yellow sputum production) since November. She also reports she has been winded since the beginning of November; she has not been moving around much at the house, and notes she feels winded when trying to get up to the bathroom. Patient reports she has been using her albuterol inhaler 3 times per day recently due to CALDERON. She took her lisinoprilHCTZ this morning, no other medications. No recent change in medications. She denies fever, and has been taking her temperature at home. She had 1 episode of vomiting after coughing up mucus. Patient lives with her twin sister and there are 2 cats. She reports no sick contacts. Vitals: She has been tachycardic in the ED, and is 111 bpm at time of admission; SpO2 94% on RA. ED course: NSS 1000 mL IV Rocephin 1000 mg IV Azithromycin 500 mg p.o. ROS: Patient endorses dizziness, lightheadedness, SILVERIO (secondary to abx in the ED), chest palpitations, heart racing, CALDERON, nausea, vomiting x1, and darker urine color. Patient denies fever, chills, nightsweats, chest pain, SOB at rest, pleuritic CP, hemoptysis, urinary s/s, burning with urination, dysuria, or numbness/tingling/pain/redness in legs or arms. Allergies Allergy/AdvReac Type Severity Reaction Status Date / Time Penicillins Allergy Unknown STRONG Verified 12/27/23 19:23 FAMILY HX-NEVER USED. 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 "passenger train braker" Verified 12/27/23 21:06 and "scented soap" - unknown rxn Home Medications Medication Instructions Recorded Confirmed Type acetaminophen 650 mg 0 mg PO DIRECTED PRN Pain 06/22/19 12/27/23 History tablet,extended release (Tylenol Arthritis Pain) metformin 500 mg tablet 500 mg PO DAILY #90 tabs 01/03/23 12/27/23 Rx fenofibrate micronized 43 mg 43 mg PO DAILY #90 caps 07/13/23 12/27/23 Rx capsule rosuvastatin 40 mg tablet 40 mg PO DAILY #90 tabs 07/13/23 12/27/23 Rx albuterol sulfate 90 mcg/actuation 1 puff inhalation Q6H PRN SOB #8.5 09/29/23 12/27/23 Rx aerosol inhaler (ProAir HFA) grams empagliflozin 10 mg tablet 10 mg PO DAILY #30 tabs 10/30/23 12/27/23 Rx (Jardiance) fluticasone propionate 44 0 puff inhalation BID 12/27/23 12/27/23 History mcg/actuation HFA aerosol inhaler lisinopril 10 0 tab PO DAILY 12/27/23 12/27/23 History mg-hydrochlorothiazide 12.5 mg tablet Past Med/Surg History Medical History Hidradenitis suppurativa of left axilla Hypertension Arthritis Asthma stable Obesity 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 Gil 12/04/20 +MRSA History of difficult intubation cystoscopy, right ureteroscopy, stent placement: 06/22/19: Elective glidescope #3 grade view 1 at [facility] History of tonsillectomy History of lithotripsy History of cystoscopy with stent History of foot surgery Right H/O knee surgery Bilateral History of ankle surgery Left Family History Father Hypertension Sister Hypertension Colorectal cancer Mother Colorectal cancer Stroke Aunt Myocardial infarction maternal Denies family history of Ovarian cancer Prostate cancer Breast cancer Social History Smoking Status: Never smoker Second Hand Exposure: No; Do You Dip or Chew Tobacco: No; Tobacco Cessation Education Requested by Patient: No Hx Alcohol Use: No Hx Substance Use: No Preferred Language: Portuguese Communication Ability: Effective Visual Impairment: No Limitations Director Ship Required: No Beliefs That Will Affect Care: None marital status: Single Current Living Situation: Family Current Living Situation Comment: lives with sister 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al status: retired How many Children do You have: 0 Other Information That Helps Us Care for You: No Feels Safe at Home: Yes Childhood Exposure to Second-Hand Smoke: No Diet: regular caffeine: Yes (1 cup of tea approx 2x a week) Dental Care, Regularly: Yes Physical Activity Frequency: Daily Physical Activity Frequency Comment: walk Seatbelt Use: always Sunscreen Use: Yes Assistive Devices: Walker Review of Systems Review of Systems: See HPI above Physical Exam Physical Exam: General: Moderate respiratory distress; diaphoretic; lethargic; nauseated; cooperative; SpO2 94% on RA HEENT: normocephalic, atraumatic; no scleral icterus; PERRLA w/ EOMs intact; moist mucus membrane; vision and hearing grossly intact Neck: supple; no JVD; no lymphadenopathy; trachea midline Skin: warm, dry without signs of tenting; no cyanosis; no rashes, bruising, lesions, or erythema noted CV: chest wall NTP; RR, tachycardic around 110 bpm; S1/S2 normal; no murmurs/rubs/gallops; pulses intact and symmetric at radial, DP, and PT Lungs: Moderate respiratory distress; significantly decreased breath sounds on the right side; w/o adventitious sounds; no wheezing ABD: Soft, NTP; BS present; no rebound/guarding; moderate distention secondary to body habitus MSK: no tics or fasciculations; +1 pitting edema noted in the LEs b/l, nonerythematous Neuro: A&Ox3; normal mood and affect; fluent speech; no focal deficits; sensation grossly intact in the LEs b/l Results & Data Results & Data Vital Signs (Past 12 Hours) Vital Signs Temp Pulse Pulse Resp BP BP Pulse Ox 12/27/23 19:36 80 12/27/23 18:49 20 139/63 94 12/27/23 17:29 110 H 24 104/67 94 12/27/23 16:55 112 H 21 94/59 L 95 12/27/23 16:01 36.8 C 118 H 20 82/50 L 94 O2 Del Method 12/27/23 19:36 12/27/23 18:49 Room Air 12/27/23 17:29 Room Air 12/27/23 16:55 Room Air 12/27/23 16:01 Room Air Laboratory Results Abnormal lab results 12/27/23 12/27/23 Range/Units 16:17 16:21 WBC 15.85 H (4.8-10.8) K/ul RBC 3.63 L (4.20-5.40) M/uL Hgb 10.8 L (12.0-16.0) g/dl Hct 33.8 L (37.0-47.0) % Plt Count 580 H (130-400) K/uL MPV 9.0 L (9.4-12.4) fL Neut # (Auto) 13.45 H (1.40-6.50) K/uL [place] # (Auto) 0.93 H (0.11-0.59) K/uL Anion Gap 13 H (3-11) BUN 43 H (6-23) mg/dl Creatinine 2.32 H (0.6-1.2) mg/dl Glucose 141 H (70-99(Fasting)) mg/dl POC Glucose 137 H (70-99) mg/dl Alkaline Phosphatase 166 H (34-104) U/L Procalcitonin 0.80 H (0-0.5) ng/ml Diagnostic Findings Chest X-Ray 12/27/23 16:05 XR chest 1V portable CLINICAL HISTORY: Chest pain, nonspecific TECHNIQUE: Single frontal radiograph of the chest was obtained. Comparison: Comparison is made to chest radiograph 09/08/2022 FINDINGS: No lines and tubes are seen. Calcified aortic knob is seen. Right lung is underinflated. There is airspace opacity in the right lower lung. Small bilateral pleural effusions are seen. IMPRESSION: 1. Right lower lung airspace opacity likely represents atelectasis, with or without aspiration/pneumonia or eventration of the diaphragm. Clinical correlation is recommended and CT can be performed if there is concern for trauma or mass. 2. Blunting of the bilateral costophrenic angles may represent small effusions versus extrapleural fat. ACT 112: Negative or not required by law. Electronically signed by: Justin Kaiser M.D. 12/27/2023 4:[address] 12/27/23 17:22 CT chest diagnostic wo con CLINICAL HISTORY: RLL pneumonia TECHNIQUE: Multidetector row helical CT of the chest was performed. Coronal and sagittal reformations were obtained. Automated dose lowering techniques and/or adjustment according to patient size were utilized for this exam. CT DOSE: 570.54 mGy.cm Comparison: Comparison is made to CT chest 09/08/2022 FINDINGS: Lungs and pleura: Numerous pulmonary and pleural nodules are seen measuring up to 73 mm in the right middle lobe. These are new from prior exam. A right malignant effusion is seen with pleural masses. Heart and pericardium: Heart size is normal. No pericardial effusion. Vessels: Unremarkable. Mediastinum and cass: Unremarkable. Chest wall and lower neck: Unremarkable. Abdomen: Unremarkable. Bones: Degenerative changes in the thoracic spine. IMPRESSION: Numerous pulmonary nodules are seen as well as right pleural masses concerning for metastatic disease of unknown origin. The dominant nodule in the right mid lung corresponds to density seen on chest radiograph. ACT 112: Positive. There are findings on this exam that require communication between the performing entity and the patient following Patient Test Result Information Act ([place] Act 112) guidelines. Electronically signed by: Justin Kaiser M.D. 12/27/2023 7:02 PM Code Status & VTE Plan Code Status Full code VTE Prophylaxis Plan VTE Prophylaxis will be ordered: Yes Supervising Physician Co-Signing Physician Notes Patient seen and examined, chart reviewed,case discussed with RANDI Ag and I agree with the assessment and plan as above. In brief, patient is a 68yo female with history of asthma on Albuterol and Flovent. She was seen by Nephrology today for a routine followup appointment during which she had a near syncopal episode. She reports worsening cough and SOB as well as fatigue. VS in the ER with tachycardia, tachypnea and hypotension Patient with no personal history of cancer or smoking, no environmental exposures. Her mother did have lung cancer - non-smoker On exam patient is ill in appearance Skin- warm and flushed HEENT - dry MMM, Neck supple, PERRL Heart - +S1/S2, regular, tachycardic, no m/r/g Lungs - diminished breath sounds in right hemithorax with crackles in the mid- lung field Abd- +BS, soft, NT/ND Ext - warm, well perfused Labs and images reviewed - WBC elevated at 15.85 with neutrophil predominance. Elevated platelets. STEWART with BUN=43 and Cr=2.32 Procalcitonin elevated at 0.8 CT Chest as above with numerous pulmonary nodules and right pleural masses concerning for metastatic disease Assessment/plan -Lung findings as above, concerning for possible malignancy vs infection. Favor infection at this time given patient's clinical appearance, ?possible aspergillosis given CT findings -Empiric antibiotics -Follow cultures -Send Fungitell -Pulmonary consultation appreciated -Remainder as above PG Care Time/CCT Total # of Minutes Spent Total Time Spent with Patient: Total time spent is greater than 50% in coordination of care (as documented) at patient's floor/unit and/or counseling patient: [place] [address] INT INP/OBS CARE 3/75MIN Patient Type New Medical Decision Making High Complexity Diagnoses Dyspnea R06.00 STEWART (acute kidney injury) N17.9 UTI (urinary tract infection) N39.0 Hypertension I10 Asthma J45.909 Prediabetes R73.03
[2023-12-27] MEDS: ONDANSETRON INJ 2 MG/ML 2 ML VIAL IV STA (21:12)
[2023-12-27] MEDS: PLASMA-LYTE A 1,000 ML IV SCH (21:28)
--- NOTE | 2023-12-27 21:28 | Emergency Department Note ---
History of Present Illness General Chief complaint: Dehydration Stated complaint: LOW BP, DEHYDRATION Time Seen by Provider: 12/27/23 16:08 History of Present Illness Provider complaint: Near syncope/syncope Onset (ago): day(s) 1 Maximum Pain Intensity: 7 68-year-old female presents emergency department with family for syncope/near syncope. Patient states she went to a routine appointment with her hand hardener Dr. Martinez recommended kidney function. She states after that she felt like she was going to pass out and blacked out while waiting for a ride. Her friend is at bedside and states she did not fall or hit her head but was difficult to arouse. They called EMS and brought the patient to the emergency department. Patient reports she feels increasingly fatigued. She reports no chest pain or difficulty breathing. No hematuria or dysuria. She does report nausea. No vomiting. No headache. No shortness of breath or chest pain. Home Medications Medication Instructions Recorded Confirmed Type acetaminophen 650 mg 0 mg PO DIRECTED PRN Pain 06/22/19 12/27/23 History tablet,extended release (Tylenol Arthritis Pain) metformin 500 mg tablet 500 mg PO DAILY #90 tabs 01/03/23 12/27/23 Rx fenofibrate micronized 43 mg 43 mg PO DAILY #90 caps 07/13/23 12/27/23 Rx capsule rosuvastatin 40 mg tablet 40 mg PO DAILY #90 tabs 07/13/23 12/27/23 Rx albuterol sulfate 90 mcg/actuation 1 puff inhalation Q6H PRN SOB #8.5 09/29/23 12/27/23 Rx aerosol inhaler (ProAir HFA) grams empagliflozin 10 mg tablet 10 mg PO DAILY #30 tabs 10/30/23 12/27/23 Rx (Jardiance) fluticasone propionate 44 0 puff inhalation BID 12/27/23 12/27/23 History mcg/actuation HFA aerosol inhaler lisinopril 10 0 tab PO DAILY 12/27/23 12/27/23 History mg-hydrochlorothiazide 12.5 mg tablet Allergies Allergy/AdvReac Type Severity Reaction Status Date / Time Penicillins Allergy Unknown STRONG Verified 12/27/23 19:23 FAMILY HX-NEVER USED. 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 Gil 12/04/20 +MRSA History of difficult intubation cystoscopy, right ureteroscopy, stent placement: 06/22/19: Elective glidescope #3 grade view 1 at [facility] History of tonsillectomy History of lithotripsy History of cystoscopy with stent History of foot surgery Right H/O knee surgery Bilateral History of ankle surgery Left Family History Father Hypertension Sister Hypertension Colorectal cancer Mother Colorectal cancer Stroke Aunt Myocardial infarction maternal Denies family history of Ovarian cancer Prostate cancer Breast cancer Social History Smoking Status: Never smoker Second Hand Exposure: No; Do You Dip or Chew Tobacco: No; Hx Alcohol Use: No Hx Substance Use: No Preferred Language: Citizen Of [place] Communication Ability: Effective Visual Impairment: No Limitations Compositor Apprentice Required: No Beliefs That Will Affect Care: None marital status: Single Current Living Situation: Alone Current Living Situation Comment: lives with sister 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al status: retired How many Children do You have: 0 Feels Safe at Home: Yes Childhood Exposure to Second-Hand Smoke: No Diet: regular caffeine: Yes (1 cup of tea approx 2x a week) Dental Care, Regularly: Yes Physical Activity Frequency: Daily Physical Activity Frequency Comment: walk Seatbelt Use: always Sunscreen Use: Yes Assistive Devices: Glasses Physical Exam Vital Signs Vital Signs - 24 hr 12/27/23 16:01 12/27/23 16:55 12/27/23 17:29 Temperature 36.8 C Temperature Source Temporal Artery Scan Pulse Rate 118 H Pulse Rate [Apical] 112 H 110 H Respiratory Rate 20 21 24 Respiratory Effort / Characteristics Non-Labored Spontaneous Non-Labored Non-Labored Respiratory Depth Normal Normal Normal Respiratory Pattern Regular Regular Blood Pressure 82/50 L Blood Pressure [Left Arm] 94/59 L 104/67 Blood Pressure Mean 60 Blood Pressure Mean [Left Arm] 70 79 Pulse Oximetry 94 95 94 Oxygen Delivery Method Room Air Room Air Room Air Sepsis Recent Fever Within 48 Hours No Sepsis New/Unexplained Change in Mental Status No Sepsis Action Taken by Nursing Physician Notified 12/27/23 18:49 12/27/23 19:36 12/27/23 20:36 Temperature Temperature Source Pulse Rate 80 Pulse Rate [Apical] 111 H Respiratory Rate 20 23 Respiratory Effort / Characteristics Non-Labored Respiratory Depth Normal Normal Respiratory Pattern Blood Pressure Blood Pressure [Left Arm] 139/63 138/84 Blood Pressure Mean Blood Pressure Mean [Left Arm] 88 102 Pulse Oximetry 94 94 Oxygen Delivery Method Room Air Room Air Sepsis Recent Fever Within 48 Hours Sepsis New/Unexplained Change in Mental Status Sepsis Action Taken by Nursing Physical Exam GENERAL: oriented to person, place, and time. appears well-developed and well- nourished. HENT: Exam performed. - Head: Normocephalic and atraumatic. EYES: Conjunctivae and EOM are normal. Right eye exhibits no discharge. Left eye exhibits no discharge. No scleral icterus. NECK: Normal range of motion. Neck supple. No JVD present. CV: Normal rate, regular rhythm, normal heart sounds and intact distal pulses. There is no peripheral edema. Palpable radial pulses bue. PULM/CHEST: Effort normal and breath sounds normal. No respiratory distress. No stridor. no wheezes. no rales. ABD: The abdomen is soft. There is no tenderness. NEURO: Motor and sensation grossly intact. SKIN: Skin is warm and dry. He is not diaphoretic. PSYCH: normal mood and affect. Behavior is normal. Judgment and thought content normal. Course Course 160: The patient was evaluated in room A4. A complete history and physical exam was performed Cardiac monitoring: An order was placed for continuous cardiac monitoring. The monitor shows a rate of 110 with sinus tachycardia rhythm interpreted by me 1720: Vital signs stable. Labs show leukocytosis of 15. Chest x-ray shows possible infiltrate. Patient be treated with antibiotics for commune acquired pneumonia Rocephin azithromycin. On the chest x-ray reviewed by me it is difficult to say if there is overlying tissue, mass, or infiltrate. Will obtain CT of the chest. Patient has elevated creatinine we will obtain CT of the chest without contrast. 2030: Vital signs stable. CT of the chest is more concerning for numerous pulmonary nodules as well as right pleural mass these concerning for metastasis. Given these findings, will admit the patient for evaluation by pulmonology. [facility] Dr. Bradley notified. Administered Medications Discontinued Medications Azithromycin (Azithromycin 250 Mg Tab) 500 mg PO NOW ONE Stop: 12/27/23 17:23 Last Admin: 12/27/23 18:44 Dose: 500 mg Documented By: SPENCER Sodium Chloride (Nss) 1,000 mls @ 999 mls/hr IV .Q1H1M STA Stop: 12/27/23 17:05 Last Infusion: 12/27/23 19:31 Dose: Infused Documented By: Admin: 12/27/23 16:20 Dose: 999 mls/hr Documented By: SPENCER Ceftriaxone Sodium (Rocephin) 1,000 mg in 50 mls @ 100 mls/hr IV NOW STA Stop: 12/27/23 17:51 Last Infusion: 12/27/23 19:31 Dose: Infused Documented By: Admin: 12/27/23 18:45 Dose: 100 mls/hr Documented By: SPENCER Ondansetron HCl (Ondansetron Inj 2 Mg/Ml 2 Ml Vial) 4 mg IV NOW STA Stop: 12/27/23 21:00 Last Admin: 12/27/23 21:12 Dose: 4 mg Documented By: [place] Medical Decision Making Laboratory Data Attestation: I reviewed the patient's lab results. 12/27/23 16:21 12/27/23 16:21 Lab Results 12/27/23 12/27/23 12/27/23 Range/Units 16:17 16:21 17:00 WBC 15.85 H (4.8-10.8) K/ul RBC 3.63 L (4.20-5.40) M/uL Hgb 10.8 L (12.0-16.0) g/dl Hct 33.8 L (37.0-47.0) % MCV 93.1 (80.0-100.0) fL MCH 29.8 (25.0-34.0) pg MCHC 32.0 (32.0-36.0) g/dL RDW Std Deviation 40.9 (36.4-46.3) fL RDW Coeff of Marcos 12.0 (11.5-14.5) % Plt Count 580 H (130-400) K/uL MPV 9.0 L (9.4-12.4) fL Immature Gran % (Auto) 0.8 % Neut % (Auto) 84.9 % Lymph % (Auto) 7.6 % [place] % (Auto) 5.9 % Eos % (Auto) 0.4 % Baso % (Auto) 0.4 % Neut # (Auto) 13.45 H (1.40-6.50) K/uL Lymph # (Auto) 1.21 (1.20-3.40) K/uL [place] # (Auto) 0.93 H (0.11-0.59) K/uL Eos # (Auto) 0.07 (0.00-0.50) K/uL Baso # (Auto) 0.07 (0.00-0.20) K/uL Immature Gran # (Auto) 0.12 (0.01-0.20) K/uL PT 11.8 (9.0-12.0) Seconds INR 1.1 (0.9-1.1) APTT 28 (21-31) Seconds PTT Ratio 1.0 Sodium 136 (136-145) mmol/L Potassium 3.7 (3.5-5.1) mmol/L Chloride 99 (98-107) mmol/L Carbon Dioxide 24 (21-32) mmol/L Anion Gap 13 H (3-11) BUN 43 H (6-23) mg/dl Creatinine 2.32 H (0.6-1.2) mg/dl Est Cr Clr Drug Dosing 27.6 ml/min Est GFR ( Amer) 24.6 ml/min Est GFR (Non-Af Amer) 21.2 ml/min BUN/Creatinine Ratio 18.5 (10-20) Glucose 141 H (70-99(Fasting)) mg/dl POC Glucose 137 H (70-99) mg/dl Lactate 1.9 (0.4-2.0) mmol/L Calcium 9.6 (8.6-10.3) mg/dl Total Bilirubin 0.9 (0.2-1.0) mg/dl AST 23 (13-39) U/L ALT 18 (7-52) U/L Alkaline Phosphatase 166 H (34-104) U/L Troponin I High Sens 10.0 (0-14) pg/ml Total Protein 7.4 (6.0-8.3) gm/dl Albumin 3.7 (3.4-5.0) gm/dl Globulin 3.7 (2.5-4.0) gm/dl Albumin/Globulin Ratio 1.0 (0.9-2) Lipase 19 (11-82) U/L Procalcitonin 0.80 H (0-0.5) ng/ml SARS-CoV-2 (PCR) NEGATIVE (Negative) Influenza Type A (PCR) Negative (Neg) Influenza Type B (PCR) Negative (Neg) RSV (RT-PCR) Negative (Neg) Imaging Data Attestation: I personally reviewed and interpreted this imaging study as follows: My Impression: Chest x-ray: Right lower lobe circumferential lesion mass versus infiltrate Radiologist's Impression: Chest X-Ray 12/27/23 16:05 XR chest 1V portable CLINICAL HISTORY: Chest pain, nonspecific TECHNIQUE: Single frontal radiograph of the chest was obtained. Comparison: Comparison is made to chest radiograph 09/08/2022 FINDINGS: No lines and tubes are seen. Calcified aortic knob is seen. Right lung is underinflated. There is airspace opacity in the right lower lung. Small bilateral pleural effusions are seen. IMPRESSION: 1. Right lower lung airspace opacity likely represents atelectasis, with or without aspiration/pneumonia or eventration of the diaphragm. Clinical correlation is recommended and CT can be performed if there is concern for trauma or mass. 2. Blunting of the bilateral costophrenic angles may represent small effusions versus extrapleural fat. ACT 112: Negative or not required by law. Electronically signed by: Justin Kaiser M.D. 12/27/2023 4:[address] 12/27/23 17:22 CT chest diagnostic wo con CLINICAL HISTORY: RLL pneumonia TECHNIQUE: Multidetector row helical CT of the chest was performed. Coronal and sagittal reformations were obtained. Automated dose lowering techniques and/or adjustment according to patient size were utilized for this exam. CT DOSE: 570.54 mGy.cm Comparison: Comparison is made to CT chest 09/08/2022 FINDINGS: Lungs and pleura: Numerous pulmonary and pleural nodules are seen measuring up to 73 mm in the right middle lobe. These are new from prior exam. A right malignant effusion is seen with pleural masses. Heart and pericardium: Heart size is normal. No pericardial effusion. Vessels: Unremarkable. Mediastinum and cass: Unremarkable. Chest wall and lower neck: Unremarkable. Abdomen: Unremarkable. Bones: Degenerative changes in the thoracic spine. IMPRESSION: Numerous pulmonary nodules are seen as well as right pleural masses concerning for metastatic disease of unknown origin. The dominant nodule in the right mid lung corresponds to density seen on chest radiograph. ACT 112: Positive. There are findings on this exam that require communication between the performing entity and the patient following Patient Test Result Information Act ([place] Act 112) guidelines. Electronically signed by: Justin Kaiser M.D. 12/27/2023 7:02 PM ECG Data Attestation: I personally reviewed and interpreted this ECG as follows: Rate (beats per minute): 117 Rhythm: + sinus tachycardia ECG Intervals/blocks: + Normal QRS, + Normal FL and + Normal QT-c ECG ST segments: + Normal ST segments MDM Narrative 1608: The patient was evaluated in room A4. A complete history and physical exam was performed Cardiac monitoring: An order was placed for continuous cardiac monitoring. The monitor shows a rate of 110 with sinus tachycardia rhythm interpreted by me 1720: Vital signs stable. Labs show leukocytosis of 15. Chest x-ray shows possible infiltrate. Patient be treated with antibiotics for commune acquired pneumonia Rocephin azithromycin. On the chest x-ray reviewed by me it is difficult to say if there is overlying tissue, mass, or infiltrate. Will obtain CT of the chest. Patient has elevated creatinine we will obtain CT of the chest without contrast. 2030: Vital signs stable. CT of the chest is more concerning for numerous pulmonary nodules as well as right pleural mass these concerning for metastasis. Given these findings, will admit the patient for evaluation by pulmonology. Patient will be [facility] team Dr. Bradley notified. Impression & Plan Lesion of lung, Pneumonia Discharge Plan Visit Data Chief Complaint: Dehydration Stated Complaint: LOW BP, DEHYDRATION ED Provider: Chase Salas Discharge Problem: Lesion of lung, Pneumonia Patient Disposition: Admitted As Inpatient Forms Stand Alone Forms: My [facility] Prescriptions Prescriptions: No Action metformin 500 mg tablet 500 mg PO DAILY Qty: 90 3RF fenofibrate micronized 43 mg capsule 43 mg PO DAILY Qty: 90 3RF rosuvastatin 40 mg tablet 40 mg PO DAILY Qty: 90 3RF albuterol sulfate [ProAir HFA] 90 mcg/actuation HFA aerosol inhaler 1 puff INHALATION Q6H PRN (Reason: SOB) Qty: 8.5 3RF Jardiance 10 mg tablet 10 mg PO DAILY Qty: 30 2RF acetaminophen [Tylenol Arthritis Pain] 650 mg Tablet Extended Release 0 mg PO DIRECTED PRN (Reason: Pain) Rx Instructions: Unable to verify OTC meds at this time fluticasone propionate [Flovent HFA] 44 mcg/actuation HFA aerosol inhaler 0 puff inhalation BID Rx Instructions: Unable to verify w/ patient at this date/time. Original Directions: 1 puff bid. lisinopril-hydrochlorothiazide 10-12.5 mg tablet 0 tab PO DAILY Rx Instructions: Unable to verify w/ patient at this date/time. Original Directions: 1 tab by mouth daily Referrals Referrals: Riya Zelaya MD [Primary Care Provider] - Discharge Problem: Pneumonia Qualifiers: Pneumonia type: due to unspecified organism Laterality: right Lung location: u nspecified part of lung Qualified Code(s): J18.9 - Pneumonia, unspecified organism
[2023-12-27 21:38] LABS: Magnesium 1.9 mg/dl (1.7-2.4)
[2023-12-27 23:05] LABS: Thyroid Stimulating Hormone 3.657 uIu/ml (0.300-4.500)
[2023-12-27] MEDS: LACTATED RINGER'S 1,000 ML IV ONE (23:26)
[2023-12-28] MEDS ORDERED: GLUCOSE 40% GEL 15 GM TUBE PO PRN (00:51)
[2023-12-28] MEDS ORDERED: GLUCAGON FOR INJ 1 MG VIAL SQ PRN (00:51)
[2023-12-28] MEDS ORDERED: ALBUTEROL HFA 8 GM INHALER INH PRN (00:51)
[2023-12-28] MEDS ORDERED: DEXTROSE 50% 50 ML SYRINGE IV PRN (00:51)
[2023-12-28] MEDS ORDERED: GLUCOSE 10 TAB/TUBE PO PRN (00:51)
[2023-12-28] MEDS ORDERED: CARBOHYDRATES FOR HYPOGLYCEMIA PO PRN (00:51)
[2023-12-28] MEDS: HEPARIN SOD 5,000 UNIT/0.5 ML VIAL SQ SCH (01:52)
--- NOTE | 2023-12-28 02:01 | Ultrasound Report ---
Exam(s): US VENOUS BILATERAL LOWER EXTREMITIES EXAM: US Duplex Bilateral Lower Extremities Veins CLINICAL HISTORY: Reason for exam: ?DVT. TECHNIQUE: Real-time duplex ultrasound scan of the bilateral lower extremity veins integrating B-mode two-dimensional vascular structure, Doppler spectral analysis, color flow Doppler imaging and compression. COMPARISON: No relevant prior studies available. FINDINGS: Right deep veins: Unremarkable. No DVT in the right common femoral, femoral, proximal deep femoral or popliteal veins. The veins demonstrate normal color flow, are normally compressible, with normal phasic flow and/or augmentation response. Right superficial veins: Unremarkable. No thrombus in the visualized right great saphenous vein. Left deep veins: Unremarkable. No DVT in the left common femoral, femoral, proximal deep femoral or popliteal veins. The veins demonstrate normal color flow, are normally compressible, with normal phasic flow and/or augmentation response. Left superficial veins: Unremarkable. No thrombus in the visualized left great saphenous vein. Soft tissues: No acute abnormality. No popliteal cyst. IMPRESSION: No evidence of deep venous thrombosis. Electronically signed by: Sadiq Barajas M.D. 12/28/23 02:00 AM
--- NOTE | 2023-12-28 07:12 | Pulmonary Consultation ---
Date of Consultation December 28, 2023 Assessment & Plan (1) Lesion of lung: (2) Multiple pulmonary nodules: (3) Shortness of breath: (4) Pleural effusion: (5) Stage 3b chronic kidney disease (CKD): Plan CT chest 12/27/2023 personally reviewed: 7.3 cm right lower lobe mass with probable invasion of the pleura Multiple pulmonary nodules appreciated bilaterally Small right-sided pleural effusion Minimal mediastinal lymphadenopathy Interestingly patient did not have this finding or even a nodule in the right lower lobe on the CT chest 09/08/2022 -- Pulmonary mass with pleural mets New compared to CT chest 08/2022 Probability of it being malignancy is very high, it seems to be aggressive given the significant increase in size and less than 2 years -- Right-sided pleural effusion Likely from underlying malignancy --History of lung cancer mother was a non-smoker History of colon cancer in mother Plan: Probability of patient having malignancy is very high Would recommend CT abdomen pelvis to be done if there is already metastasis to the liver. Patient will need MRI of the brain. I will discuss the case with interventional radiology after the CT abdomen pelvis is performed to see if a CT/ultrasound-guided biopsy of the right pleural mets could be diagnostic. At the same time thoracentesis could also be pursued by them. This will help with staging as well as diagnosis. This was explained to the patient in depth. All questions and queries of the patient were answered Keep n.p.o. postmidnight, hold all anticoagulation Please note the above document was generated using voice recognition software. It may contain grammatical, syntax or spelling errors.Any formal questions or concerns about the content, text or information contained within the body of this dictation should be directly addressed to the provider for clarification. His History of Present Illness Attending Physician: Renetta Bradley DO History of Present Illness 68-year-old female admitted to hospital for generalized lethargy and shortness of breath Past medical history: Dyslipidemia, hypertension Pulmonary consulted for abnormal chest CT At the time of examination patient was in mild respiratory distress She was saturating 90% on room air Patient says that she has been having issues with her breathing dating back to late October early November which has been progressively getting worse. Denies any difficulty swallowing. Has been afebrile. No chills No dysuria, or diarrhea. Denies any difficulty swallowing. No pleuritic chest pain. Denies any cough, no hemoptysis No unusual headache or blurry vision Has lost approximately 6-7 pounds in the last month or so unintentionally Social history: Lifetime non-smoker. 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 History of lung cancer mother was a non-smoker History of colon cancer in mother Allergies Allergy/AdvReac Type Severity Reaction Status Date / Time Penicillins Allergy Unknown STRONG Verified 12/27/23 19:23 FAMILY HX-NEVER USED. 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 "awning maker and installer" Verified 12/27/23 21:06 and "scented soap" - unknown rxn Home Medications Medication Instructions Recorded Confirmed Type acetaminophen 650 mg 0 mg PO DIRECTED PRN Pain 06/22/19 12/27/23 History tablet,extended release (Tylenol Arthritis Pain) metformin 500 mg tablet 500 mg PO DAILY #90 tabs 01/03/23 12/27/23 Rx fenofibrate micronized 43 mg 43 mg PO DAILY #90 caps 07/13/23 12/27/23 Rx capsule rosuvastatin 40 mg tablet 40 mg PO DAILY #90 tabs 07/13/23 12/27/23 Rx albuterol sulfate 90 mcg/actuation 1 puff inhalation Q6H PRN SOB #8.5 09/29/23 12/27/23 Rx aerosol inhaler (ProAir HFA) grams empagliflozin 10 mg tablet 10 mg PO DAILY #30 tabs 10/30/23 12/27/23 Rx (Jardiance) fluticasone propionate 44 0 puff inhalation BID 12/27/23 12/27/23 History mcg/actuation HFA aerosol inhaler lisinopril 10 0 tab PO DAILY 12/27/23 12/27/23 History mg-hydrochlorothiazide 12.5 mg tablet Patient History Medical History Hidradenitis suppurativa of left axilla Hypertension Arthritis Asthma stable Obesity 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 Gil 12/04/20 +MRSA History of difficult intubation cystoscopy, right ureteroscopy, stent placement: 06/22/19: Elective glidescope #3 grade view 1 at [facility] History of tonsillectomy History of lithotripsy History of cystoscopy with stent History of foot surgery Right H/O knee surgery Bilateral History of ankle surgery Left Family History Father Hypertension Sister Hypertension Colorectal cancer Mother Colorectal cancer Stroke Aunt Myocardial infarction maternal Denies family history of Ovarian cancer Prostate cancer Breast cancer Social History Smoking Status: Never smoker Second Hand Exposure: No; Do You Dip or Chew Tobacco: No; Tobacco Cessation Education Requested by Patient: No Hx Alcohol Use: No Hx Substance Use: No Preferred Language: [place] Communication Ability: Effective Visual Impairment: No Limitations Ediscovery Project Manager Required: No Beliefs That Will Affect Care: None marital status: Single Current Living Situation: Family Current Living Situation Comment: lives with sister 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al status: retired How many Children do You have: 0 Other Information That Helps Us Care for You: No Feels Safe at Home: Yes Childhood Exposure to Second-Hand Smoke: No Diet: regular caffeine: Yes (1 cup of tea approx 2x a week) Dental Care, Regularly: Yes Physical Activity Frequency: Daily Physical Activity Frequency Comment: walk Seatbelt Use: always Sunscreen Use: Yes Assistive Devices: Cane, Crutches, Glasses and Walker Review of Systems 2 Review of Systems: All systems reviewed & are unremarkable except as noted in HPI & below Physical Exam 2 Physical Exam: Constitutional: No acute distress HEENT: EOMI, PERRLA Respiratory system: Decreased air entry on the right side, no wheeze, rhonchi, no crackles CVS: S1-S2 positive, no murmurs or gallops Abdomen: Soft, nontender, nondistended, positive bowel sounds x4, obese Extremities: +2 pulses bilaterally radialis/ dorsalis pedis, no cyanosis, no edema Neuro: Awake alert oriented x3 Psych: Normal mood and affect G/U: No Jackson Skin: no rashes, warm and dry Lymphatic: no cervical or axillary lymphadenopathy Results & Data Results & Data Vital Signs (Past 12 Hours) Vital Signs Temp Pulse Pulse Resp BP Pulse Ox O2 Del Method 12/28/23 04:43 100 H 12/28/23 04:40 Room Air 12/28/23 04:00 36.4 C L 98 H 18 122/67 90 Room Air 12/28/23 00:35 111 H 18 125/66 90 Room Air 12/27/23 23:10 37.4 C 12/27/23 21:38 37.3 C 12/27/23 21:27 107 H 28 H 115/55 L 93 Room Air 12/27/23 20:36 111 H 23 138/84 94 Room Air 12/27/23 19:36 80 Laboratory Results 12/27/23 16:21 12/27/23 16:21 PG Care Time/CCT Total # of Minutes Spent Total Time Spent with Patient: Total time spent is greater than 50% in coordination of care (as documented) at patient's floor/unit and/or counseling patient: Coding Level of Care Code 47310 INT INP/OBS CARE 3/75MIN Diagnoses Lesion of lung R91.1 Multiple pulmonary nodules R91.8 Shortness of breath R06.02 Pleural effusion J90 Stage 3b chronic kidney disease (CKD) N18.32
[2023-12-28 08:07] LABS: Basophils # (auto) 0.04 K/uL (0.00-0.20); Basophils % (auto) 0.4 %; Eosinophils # (auto) 0.07 K/uL (0.00-0.50); Eosinophils % (auto) 0.7 %; Hematocrit (blood only) 28.2 % (37.0-47.0); Immature Granulocytes # (auto) 0.08 K/uL (0.01-0.20); Immature Granulocytes % (auto) 0.8 %; Lymphocytes # (auto) 1.51 K/uL (1.20-3.40); Lymphocytes % (auto) 14.4 %; Mean Corpuscular Hemoglobin 29.8 pg (25.0-34.0); Mean Corpuscular Hgb Conc 31.9 g/dL (32.0-36.0); Mean Corpuscular Volume 93.4 fL (80.0-100.0); Monocytes % (auto) 8.6 %; Neutrophils # (auto) 7.92 K/uL (1.40-6.50); Neutrophils % (auto) 75.1 %; Platelet Count 481 K/uL (130-400); RDW Coefficient of Variation 12.1 % (11.5-14.5); RDW Standard Deviation 41.1 fL (36.4-46.3); Red Blood Count 3.02 M/uL (4.20-5.40); White Blood Count 10.52 K/ul (4.8-10.8)
[2023-12-28] MEDS: ROSUVASTATIN CALCIUM 20 MG TAB PO SCH (08:18)
[2023-12-28 08:53] LABS: Calcium 8.8 mg/dl (8.6-10.3); Magnesium 1.9 mg/dl (1.7-2.4); Potassium 3.7 mmol/L (3.5-5.1)
[2023-12-28 08:59] LABS: BUN Creatinine Ratio 17.9 (10-20); Est GFR (African American) 22.9 ml/min; Est GFR (Non-African American) 19.8 ml/min
--- NOTE | 2023-12-28 09:41 | Nephrology Consultation ---
Date of Consultation December 28, 2023 Assessment & Plan (1) STEWART (acute kidney injury): Non-oliguric. Etiology not entirely clear but Troy presented volume depleted. Suspect prerenal physiology and ATN. Hold lisinopril-HCTZ. Hold metformin. Reduce rosuvastatin to 10 mg daily. Check CK to exclude underlying rhabdo. I cannot exclude AIN but this seems less likely. Urine dark with SG 1.023. UA demonstrating blood and +1 bili on dipstick. Microscopy without RBC's. >30 WBC. US reviewed. (2) Stage 3b chronic kidney disease (CKD): CKD III A1. BL creat ~1.5 mg/dL. ACR <10 mcg/mg. CKD attributed to hypertension and microvascular disease. KDIGO staging and classification reviewed yesterday in the office. Medications appropriate for kidney function. Faint M spike in the gamma globulin region with faint IgG kappa band on SIEP. (3) Hypertension: BP acceptable. Hold lisinopril + HCTZ. (4) Prediabetes: Hold metformin. Troy had never started empagliflozin. (5) Lesion of lung: CT and pulmonary consultation reviewed. History of Present Illness Reason for Consultation: STEWART Requesting Physician: Neto Blum Attending Physician: Neto Blum History of Present Illness Troy Walsh is a 68 year-old female with chronic kidney disease who I saw in follow up in the outpatient clinic yesterday. Following her appointment, Troy was sent to the ER for evaluation. She presented to the clinic with several weeks of progressive fatigue and poor activity tolerance. She described notable weakness and chest congestion. She developed an acute episode of weakness and possible LOC following her visit. Evaluation in the ER was notable for a RLL lung mass. Troy initially presented to the clinic for evaluation of CKD. Serum creatini ne measured at 1.5 mg/dL in October. It is now elevated at 2.3-2.4 mg/dL. Electrolytes are otherwise normal. Troy is non-oliguric. She denies fluid retention or edema. Her PCP recently provided an Rx for empagliflozin but Troy has not started the medication. Renal US obtained last month demonstrated normal size R and L kidney. 3.5 cm cyst in the right kidney. No evidence of obstruction. Normal cortical thickness in both kidneys. UA obtained on December 23 notable for trace protein, trace blood, +bili, +LE. Microscopy demonstrated >30 WBC as well as hyaline casts. Troy denies any urinary symptoms. However, she notes that her urine has been dark and concentrated. She has not experienced any recent fevers or chills. Appetite has been poor. Medical history is notable for a history of calcium oxalate kidney stones. Troy is treated for hypertension as well as hyperglycemia. She has a history of hypertensive urgency and hyperlipidemia. She has required ureteral stent placement for obstructing ureteral stones in the past. Stent removed in July 2019. Troy has not had interval kidney stone disease but reports some recent left flank pain. She denies urinary symptoms. Allergies Allergy/AdvReac Type Severity Reaction Status Date / Time Penicillins Allergy Unknown STRONG Verified 12/27/23 19:23 FAMILY HX-NEVER USED. 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" Verified 12/27/23 21:06 and "scented soap" - unknown rxn Home Medications Medication Instructions Recorded Confirmed Type acetaminophen 650 mg 0 mg PO DIRECTED PRN Pain 06/22/19 12/27/23 History tablet,extended release (Tylenol Arthritis Pain) metformin 500 mg tablet 500 mg PO DAILY #90 tabs 01/03/23 12/27/23 Rx fenofibrate micronized 43 mg 43 mg PO DAILY #90 caps 07/13/23 12/27/23 Rx capsule rosuvastatin 40 mg tablet 40 mg PO DAILY #90 tabs 07/13/23 12/27/23 Rx albuterol sulfate 90 mcg/actuation 1 puff inhalation Q6H PRN SOB #8.5 09/29/23 12/27/23 Rx aerosol inhaler (ProAir HFA) grams empagliflozin 10 mg tablet 10 mg PO DAILY #30 tabs 10/30/23 12/27/23 Rx (Jardiance) fluticasone propionate 44 0 puff inhalation BID 12/27/23 12/27/23 History mcg/actuation HFA aerosol inhaler lisinopril 10 0 tab PO DAILY 12/27/23 12/27/23 History mg-hydrochlorothiazide 12.5 mg tablet Patient History Medical History Hidradenitis suppurativa of left axilla Hypertension Arthritis Asthma stable Obesity 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 Gil 12/04/20 +MRSA History of difficult intubation cystoscopy, right ureteroscopy, stent placement: 06/22/19: Elective glidescope #3 grade view 1 at [facility] History of tonsillectomy History of lithotripsy History of cystoscopy with stent History of foot surgery Right H/O knee surgery Bilateral History of ankle surgery Left Family History Father Hypertension Sister Hypertension Colorectal cancer Mother Colorectal cancer Stroke Aunt Myocardial infarction maternal Denies family history of Ovarian cancer Prostate cancer Breast cancer Social History Smoking Status: Never smoker Second Hand Exposure: No; Do You Dip or Chew Tobacco: No; Tobacco Cessation Education Requested by Patient: No Hx Alcohol Use: No Hx Substance Use: No Preferred Language: Romanian Communication Ability: Effective Visual Impairment: No Limitations Roll Skinner Required: No Beliefs That Will Affect Care: None marital status: Single Current Living Situation: Family Current Living Situation Comment: lives with sister 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al status: retired How many Children do You have: 0 Other Information That Helps Us Care for You: No Feels Safe at Home: Yes Childhood Exposure to Second-Hand Smoke: No Diet: regular caffeine: Yes (1 cup of tea approx 2x a week) Dental Care, Regularly: Yes Physical Activity Frequency: Daily Physical Activity Frequency Comment: walk Seatbelt Use: always Sunscreen Use: Yes Assistive Devices: Walker Review of Systems Review of Systems: All systems reviewed & are unremarkable except as noted in HPI & below Physical Exam Constitutional: well developed; no acute distress Eyes: no scleral abnormality and no corneal abnormality ENMT: Mouth: no oral mucosal abnormality and oral mucous membranes not dry Neck: normal visual inspection and trachea midline Respiratory: normal respiratory effort Auscultation: lungs clear to auscultation bilaterally Cardiovascular: Rate/Rhythm: + tachycardic Heart Sounds: normal S1 and normal S2 Extremities: no edema Musculoskeletal: Extremities: no cyanosis and no clubbing Skin: normal turgor; no lesions Neurologic: Motor/Sensory: no tremor and no asterixis Psychiatric: Orientation: alert and oriented x 3 Results & Data Vital Signs (Past 12 Hours) Vital Signs Temp Pulse Pulse Resp BP Pulse Ox O2 Del Method 12/28/23 08:28 Room Air 12/28/23 07:25 36.9 C 95 H 18 136/72 91 Room Air 12/28/23 07:15 949 H 12/28/23 04:43 100 H 12/28/23 04:40 Room Air 12/28/23 04:00 36.4 C L 98 H 18 122/67 90 Room Air 12/28/23 00:35 111 H 18 125/66 90 Room Air 12/27/23 23:10 37.4 C Laboratory Results Laboratory Results - last 24 hr 12/27/23 12/27/23 12/27/23 16:17 16:21 17:00 WBC 15.85 H RBC 3.63 L Hgb 10.8 L Hct 33.8 L MCV 93.1 MCH 29.8 MCHC 32.0 RDW Std Deviation 40.9 RDW Coeff of Marcos 12.0 Plt Count 580 H MPV 9.0 L Immature Gran % (Auto) 0.8 Neut % (Auto) 84.9 Lymph % (Auto) 7.6 [place] % (Auto) 5.9 Eos % (Auto) 0.4 Baso % (Auto) 0.4 Neut # (Auto) 13.45 H Lymph # (Auto) 1.21 [place] # (Auto) 0.93 H Eos # (Auto) 0.07 Baso # (Auto) 0.07 Immature Gran # (Auto) 0.12 PT 11.8 INR 1.1 APTT 28 PTT Ratio 1.0 Sodium 136 Potassium 3.7 Chloride 99 Carbon Dioxide 24 Anion Gap 13 H BUN 43 H Creatinine 2.32 H Est Cr Clr Drug Dosing 27.6 Est GFR ( Amer) 24.6 Est GFR (Non-Af Amer) 21.2 BUN/Creatinine Ratio 18.5 Glucose 141 H POC Glucose 137 H Lactate 1.9 Calcium 9.6 Magnesium 1.9 Total Bilirubin 0.9 AST 23 ALT 18 Alkaline Phosphatase 166 H Total Creatine Kinase Troponin I High Sens 10.0 Total Protein 7.4 Albumin 3.7 Globulin 3.7 Albumin/Globulin Ratio 1.0 Lipase 19 Procalcitonin 0.80 H TSH 3.657 Nasal Screen MRSA (PCR) SARS-CoV-2 (PCR) NEGATIVE Influenza Type A (PCR) Negative Influenza Type B (PCR) Negative RSV (RT-PCR) Negative Beta-(1,3)-D-Glucan B-(1,3)-D-Glucan Intrp 12/27/23 12/28/23 12/28/23 22:05 06:26 08:20 WBC 10.52 RBC 3.02 L Hgb 9.0 L Hct 28.2 L MCV 93.4 MCH 29.8 MCHC 31.9 L RDW Std Deviation 41.1 RDW Coeff of Marcos 12.1 Plt Count 481 H MPV 9.0 L Immature Gran % (Auto) 0.8 Neut % (Auto) 75.1 Lymph % (Auto) 14.4 [place] % (Auto) 8.6 Eos % (Auto) 0.7 Baso % (Auto) 0.4 Neut # (Auto) 7.92 H Lymph # (Auto) 1.51 [place] # (Auto) 0.90 H Eos # (Auto) 0.07 Baso # (Auto) 0.04 Immature Gran # (Auto) 0.08 PT INR APTT PTT Ratio Sodium 135 L Potassium 3.7 Chloride 102 Carbon Dioxide 22 Anion Gap 11 BUN 44 H Creatinine 2.46 H Est Cr Clr Drug Dosing 26.0 Est GFR ( Amer) 22.9 Est GFR (Non-Af Amer) 19.8 BUN/Creatinine Ratio 17.9 Glucose 98 POC Glucose 94 Lactate Calcium 8.8 Magnesium 1.9 Total Bilirubin AST ALT Alkaline Phosphatase Total Creatine Kinase Pending Troponin I High Sens Total Protein Albumin Globulin Albumin/Globulin Ratio Lipase Procalcitonin TSH Nasal Screen MRSA (PCR) Negative SARS-CoV-2 (PCR) Influenza Type A (PCR) Influenza Type B (PCR) RSV (RT-PCR) Beta-(1,3)-D-Glucan Pending B-(1,3)-D-Glucan Intrp Pending Diagnostic Findings US renal/blad retro comp COMPARISON: Comparison is made to CT abdomen pelvis 06/22/2019 FINDINGS: The right kidney measures 10.2 cm in length, and the left kidney measures 9.9 cm in length. The right kidney is normal in size, contour, cortical thickness, and echogenicity. No hydronephrosis is identified. A cyst is in the right kidney lower pole measuring 3.5 cm. The left kidney is normal in size, contour, cortical thickness and echogenicity. No hydronephrosis is identified. No renal lesion is identified. The bladder is partially distended. Bilateral jets are seen. IMPRESSION: Unremarkable renal ultrasound. PG Care Time/CCT Total # of Minutes Spent Total Time Spent with Patient: Total time spent is greater than 50% in coordination of care (as documented) at patient's floor/unit and/or counseling patient: Coding Level of Care Code 81197 IN/OBS CONSULT LVL 4,60M Diagnoses STEWART (acute kidney injury) N17.9 Stage 3b chronic kidney disease (CKD) N18.32 Hypertension I10 Prediabetes R73.03 Lesion of lung R91.1
--- NOTE | 2023-12-28 12:23 | CT Scan Report ---
ABDOMEN AND PELVIS CT WITHOUT CONTRAST CT DOSE: 1405.65 mGy.cm HISTORY: Pulmonary nodules and right pleural-based masses. eval metastatic dz TECHNIQUE: Multiaxial CT images of the abdomen and pelvis were performed without contrast. A dose lo wering technique was utilized adhering to the principles of ALARA. COMPARISON STUDY: Chest CT 12/27/2023. Renal ultrasound 12/09/2023. FINDINGS: Partially loculated moderate right pleural effusion and multiple pleural-based masses again noted within the right lung base. This is better appreciated on the recent chest CT. There are also multiple pulmonary nodules seen within the lung bases. This consistent with metastatic disease. No pn eumoperitoneum. No pneumatosis. Scoliosis and degenerative changes seen within the lumbar spine. No s uspicious lytic or blastic osseous lesions. There is an indeterminate subcutaneous nodule within the left upper abdominal wall in image 122 measuring 1 cm. Small fat-containing umbilical hernia. No defi nite hepatic or splenic masses. The gallbladder is contracted but appears unremarkable. The pancreas and adrenal glands are within normal limits. No renal stones or hydronephrosis. There is a 3.5 cm exo phytic hyperdense cyst within the lower pole of the right kidney. This contains a punctate calcificat ion. There are few prominent gastrohepatic lymph nodes which have slightly increased in size. Dominan t gastrohepatic lymph node on image 128 measures 13 x 7 mm. This is concerning for metastatic disease . Moderate calcified plaque within the normal caliber abdominal aorta. No pelvic lymphadenopathy or p elvic free fluid. The bladder, uterus, and left ovary are unremarkable. Increase in size within the r ight ovary best seen on image 349 which measures 4.3 cm. This is not well assessed due to the lack of intravenous contrast. Suboptimal evaluation for bowel pathology due to the lack of intravenous and o ral contrast. However, there is no definite bowel wall thickening or obstruction. Normal appendix. Co lonic diverticulosis. No evidence for acute diverticulitis. IMPRESSION: 1. Redemonstration of the partially loculated moderate right pleural effusion, right pleural-based ma sses, and bibasilar pulmonary nodules consistent with a neoplastic process and/or metastatic disease. 2. A few prominent gastrohepatic lymph nodes which have increased in size. This is concerning for ear ly metastatic change. 3. An indeterminate 1 cm subcutaneous nodule within the left upper abdominal wall. 4. Increase in size in the right ovary which measures 4.3 cm. This could be pathologic in a postmenop ausal female. This is not well assessed on this noncontrast study. Therefore, follow-up nonemergent p elvic ultrasound recommended for further evaluation. ACT 112: Negative or not required by law. Electronically signed by: Romaine Tripp M.D. 12/28/2023 12:22 PM
--- NOTE | 2023-12-28 12:57 | Magnetic Resonance Report ---
Brain MRI WITHOUT CONTRAST HISTORY: Right lung pleural masses and pulmonary nodules. evaluate for metastatic disease TECHNIQUE: Multiplanar multisequence MRI of the brain was performed without the use of contrast. COMPARISON STUDY: Head CT 06/22/2018. Brain MRI 08/15/2019. FINDINGS: There is no mass, hematoma, midline shift, or acute infarct. The paranasal sinuses are timur r. The mastoid air cells are clear. The ventricles and sulci demonstrate mild age-related involutiona l changes. Scattered foci of T2 hyperintensity seen within the periventricular and subcortical white matter are nonspecific but suggestive of mild microvascular ischemic changes. The major vascular flow voids at the skull base are well-maintained. IMPRESSION: No definite evidence for intracranial metastatic disease. Of note, there is suboptimal evaluation for an intracranial lesion given the lack of intravenous contrast. ACT 112: Negative or not required by law. Electronically signed by: Romaine Tripp M.D. 12/28/2023 12:54 PM
[2023-12-28 13:08] LABS: Appearance Urine Clear (Clear); Bilirubin Urine Negative (Negative); Blood Urine Negative (Negative); Color Urine Yellow; Glucose Urine UA Negative (Negative); Ketones Urine Negative (Negative); Leukocyte Esterase Urine Negative (Negative); Nitrite Urine Negative (Negative); Protein Urine Negative (Negative); Specific Gravity Urine 1.013 (1.000-1.030); Urobilinogen Urine Negative (Negative)
[2023-12-28] MEDS: ACETAMINOPHEN 325 MG TAB PO PRN (13:22)
[2023-12-28] MEDS: AZITHROMYCIN 500 MG in DEXTROSE 5% 250 ML IV SCH (17:10)
[2023-12-28] MEDS: cefTRIAXone SODIUM 2,000 MG in DEXTROSE 5 % MINI-B 50 ML IV SCH (20:46)
--- NOTE | 2023-12-28 23:26 | Hospitalist Progress Note ---
Date of Service December 28, 2023 Assessment & Plan (1) Dyspnea: Plan: Patient experienced a presyncopal episode while at an outpatient nephrology appointment on 12/27 She reports feeling dizzy, and seeing spots/blurriness She reports ongoing, worsening CALDERON and fatigue since the beginning of November CXR revealed a RLL airspace opacity, with concerns for trauma or mass Chest CT (without contrast in the setting of STEWART) revealed numerous pulmonary nodules as well as a right pleural mass concerning for metastatic disease of unknown origin Etiology unclear ?Infectious versus metastatic disease; in the setting of Flovent use and none demarcated 73 mm nodule, will order [facility] consulted Concern over malignancy IR to consider U/S guided biopsy on nodule empiric antibiotics placed. Infectious viral workup negative Sputum culture ordered, pending Blood cultures ordered, pending (note: ordered after abx given in the ED) Incentive spirometry Flutter valve (2) STEWART (acute kidney injury): Plan: BUN 43, creatinine 2.32 (baseline 1.53), EGFR 21.2 Hold lisinoprilHCTZ Avoid nephrotoxic agents BUN/creatinine 18.5 IV fluid resuscitation with Plasma-Lyte at 100mL/hr x2 (3) UTI (urinary tract infection): Plan: UA positive on 12/23 Clinically, patient endorses darker urine Urine culture ordered, pending Rocephin (as above) (4) Hypertension: Plan: Hold lisinoprilHCTZ (5) Asthma: Plan: Albuterol inhaler as needed (6) Prediabetes: Plan: Hold metformin, empagliflozin A1c at 6.2% on 10/10/2023 T2DM diet BSG ACHS Hold insulin for now Plan Disposition: Admit to [facility] telemetry Full code T2DM diet VTE PPx: Heparin 5000 units SQ q12h Admission and Anticipated Discharge Date Admission Date: December 27, 2023 Subjective Patient reports no new symptoms. Review of Systems Review of Systems: All systems reviewed & are unremarkable except as noted in HPI & below Physical Exam Physical Exam: Constitutional: No acute distress HEENT: EOMI, PERRLA Respiratory system:decreased breath sounds more R CVS: S1-S2 positive, no murmurs or gallops Abdomen: Soft, NT/ND Neuro: AAO x3 Results & Data Results & Data Vital Signs (Past 12 Hours) Vital Signs Temp Pulse Pulse Resp BP Pulse Ox O2 Del Method 12/28/23 19:40 Nasal Cannula 12/28/23 19:37 37 C 90 20 118/70 93 Nasal Cannula 12/28/23 18:00 90 12/28/23 15:00 37.0 C 90 18 122/72 92 Nasal Cannula O2 Flow Rate 12/28/23 19:40 2 12/28/23 19:37 2 12/28/23 18:00 12/28/23 15:00 2 PG Care Time/CCT Total # of Minutes Spent Total Time Spent with Patient: Total time spent is greater than 50% in coordination of care (as documented) at patient's floor/unit and/or counseling patient: Coding Level of Care Code 86384 SUB INP/OBS CARE 2/35MIN Diagnoses Dyspnea R06.00 STEWART (acute kidney injury) N17.9 UTI (urinary tract infection) N39.0 Hypertension I10 Asthma J45.909 Prediabetes R73.03
--- NOTE | 2023-12-29 05:22 | Electrocardiogram Report ---
Test Reason : Blood Pressure : / mmHG Vent. Rate : 117 BPM Atrial Rate : 117 BPM P-R Int : 164 ms QRS Dur : 086 ms QT Int : 330 ms P-R-T Axes : 053 252 023 degrees QTc Int : 461 ms Sinus tachycardia Right superior axis deviation Right ventricular hypertrophy Cannot rule out Anterior infarct , age undetermined Abnormal ECG When compared with ECG of 08-SEP-2022 09:53, Nonspecific T wave abnormality no longer evident in Lateral leads Confirmed by Raymond Lee ([id number]) on 12/29/2023 5:22:10 AM Referred By: REFERRED SELF Confirmed By:Raymond Lee
--- NOTE | 2023-12-29 07:41 | Hospitalist Progress Note ---
Date of Service December 29, 2023 Assessment & Plan (1) Dyspnea: Plan: Patient experienced a presyncopal episode while at an outpatient nephrology appointment on 12/27 CXR revealed a RLL airspace opacity, with concerns for trauma or mass Chest CT (without contrast in the setting of STEWART) revealed numerous pulmonary nodules as well as a right pleural mass concerning for metastatic disease of unknown origin Etiology unclear ?Infectious versus metastatic disease; in the setting of Flovent use and none demarcated 73 mm nodule, will order [facility] consulted. fluid seems exudative Sputum culture ordered, pending Blood cultures ordered, pending (note: ordered after abx given in the ED) COVID, flu, RSV negative Rocephin and azithromycin Supplemental O2 as needed (2) STEWART (acute kidney injury): Plan: BUN 43, creatinine 2.32 (baseline 1.53), EGFR 21.2 Hold lisinoprilHCTZ Avoid nephrotoxic agents BUN/creatinine 18.5 IV fluid resuscitation with Plasma-Lyte at 100mL/hr x2 (3) UTI (urinary tract infection): Plan: UA positive on 12/23 Clinically, patient endorses darker urine Urine culture ordered, pending Rocephin (as above) (4) Hypertension: Plan: Hold lisinoprilHCTZ (5) Asthma: Plan: Albuterol inhaler as needed (6) Prediabetes: Plan: Hold metformin, empagliflozin A1c at 6.2% on 10/10/2023 T2DM diet BSG ACHS Hold insulin for now Plan Disposition: Admit to [facility] telemetry Full code T2DM diet VTE PPx: Heparin 5000 units SQ q12h Admission and Anticipated Discharge Date Admission Date: December 27, 2023 Subjective Pt is very anxious, she did have pleural fluid assesed today, it was bloody, and exudative concern for malignancy Physical Exam Physical Exam: diminished breath sounds to right side, cardiac is regular Results & Data Results & Data Vital Signs (Past 12 Hours) Vital Signs Temp Pulse Pulse Resp BP Pulse Ox O2 Del Method 12/29/23 07:11 93 H 12/29/23 04:02 97.9 F 91 H 16 118/68 93 Nasal Cannula 12/29/23 00:04 85 12/28/23 19:40 Nasal Cannula O2 Flow Rate 12/29/23 07:11 12/29/23 04:02 2 12/29/23 00:04 12/28/23 19:40 2 Laboratory Results review cbc review chemistry PG Care Time/CCT Total # of Minutes Spent Total Time Spent with Patient: Total time spent is greater than 50% in coordination of care (as documented) at patient's floor/unit and/or counseling patient: Coding Level of Care Code 77912 SUB INP/OBS CARE 3/50MIN Diagnoses Dyspnea R06.00 STEWART (acute kidney injury) N17.9 UTI (urinary tract infection) N39.0 Hypertension I10 Asthma J45.909 Prediabetes R73.03
[2023-12-29] MEDS: ROSUVASTATIN CALCIUM 10 MG TAB PO SCH (07:51)
[2023-12-29 08:56] LABS: Basophils # (auto) 0.06 K/uL (0.00-0.20); Basophils % (auto) 0.6 %; Eosinophils # (auto) 0.27 K/uL (0.00-0.50); Eosinophils % (auto) 2.6 %; Hematocrit (blood only) 29.4 % (37.0-47.0); Hemoglobin 9.4 g/dl (12.0-16.0); Immature Granulocytes # (auto) 0.07 K/uL (0.01-0.20); Immature Granulocytes % (auto) 0.7 %; Lymphocytes # (auto) 0.95 K/uL (1.20-3.40); Lymphocytes % (auto) 9.1 %; Mean Corpuscular Hemoglobin 29.9 pg (25.0-34.0); Mean Corpuscular Volume 93.6 fL (80.0-100.0); Mean Platelet Volume 8.6 fL (9.4-12.4); Monocytes % (auto) 7.6 %; Neutrophils # (auto) 8.31 K/uL (1.40-6.50); Neutrophils % (auto) 79.4 %; Platelet Count 561 K/uL (130-400); RDW Coefficient of Variation 12.4 % (11.5-14.5); Red Blood Count 3.14 M/uL (4.20-5.40); White Blood Count 10.46 K/ul (4.8-10.8)
[2023-12-29 09:14] LABS: Albumin Level 3.3 gm/dl (3.4-5.0); BUN Creatinine Ratio 19.2 (10-20); Bilirubin,Total 0.5 mg/dl (0.2-1.0); Calcium 9.1 mg/dl (8.6-10.3); Creatinine Clr Calc Pharmacy 36.6 ml/min; Est GFR (African American) 34.1 ml/min; Est GFR (Non-African American) 29.4 ml/min; Potassium 4.1 mmol/L (3.5-5.1); Total Protein 6.7 gm/dl (6.0-8.3)
--- NOTE | 2023-12-29 10:12 | Nephrology Progress Note ---
Date of Service December 29, 2023 Assessment & Plan (1) STEWART (acute kidney injury): Plan: Non-oliguric. STEWART attributed to volume depletion and ACEi use. Possible component of ATN. Kidney function is improving. Electrolytes are normal. Hold lisinopril-HCTZ. Hold metformin. Rosuvastatin dose reduced due to STEWART but it would be reasonable to resume 40 mg daily at this time. I discussed the plan of care with Dr. Madrigal this AM. Kidney function is improving. No additional recommendations from nephrology at this time. BP acceptable without antihypertensives. Nephrology will follow peripherally/sign- off. Please call with questions or concerns. (2) Stage 3b chronic kidney disease (CKD): Plan: CKD III A1. BL creat ~1.5 mg/dL. ACR <10 mcg/mg. CKD attributed to hypertension and microvascular disease. KDIGO staging and classification reviewed yesterday in the office. Medications appropriate for kidney function. Faint M spike in the gamma globulin region with faint IgG kappa band on SIEP. Please arrange outpatient follow up with me within a couple weeks of hospital dsicharge. (3) Hypertension: Plan: BP acceptable. Hold lisinopril + HCTZ. (4) Prediabetes: Plan: Hold metformin. Troy had never started empagliflozin. (5) Lesion of lung: Plan: Biopsy pending. Admission and Anticipated Discharge Date Admission Date: December 27, 2023 Subjective No acute events overnight. No complaints this AM. Troy is breathing comfortably. She denies fevers or chills. She denies fluid retention or edema. Review of Systems Review of Systems: All systems reviewed & are unremarkable except as noted in HPI & below Physical Exam Constitutional: well developed; no acute distress Eyes: no scleral abnormality and no corneal abnormality ENMT: Mouth: no oral mucosal abnormality and oral mucous membranes not dry Neck: normal visual inspection and trachea midline Respiratory: normal respiratory effort Auscultation: lungs clear to auscultation bilaterally Cardiovascular: Rate/Rhythm: + tachycardic Heart Sounds: normal S1 and normal S2 Extremities: no edema Musculoskeletal: Extremities: no cyanosis and no clubbing Skin: normal turgor; no lesions Neurologic: Motor/Sensory: no tremor and no asterixis Psychiatric: Orientation: alert and oriented x 3 Results & Data Vital Signs (Past 12 Hours) Vital Signs Temp Pulse Pulse Resp BP Pulse Ox O2 Del Method 12/29/23 08:02 Nasal Cannula 12/29/23 07:55 36.8 C 95 H 20 130/69 94 Nasal Cannula 12/29/23 07:11 93 H 12/29/23 04:02 36.6 C 91 H 16 118/68 93 Nasal Cannula 12/29/23 00:04 85 O2 Flow Rate 12/29/23 08:02 2 12/29/23 07:55 2 12/29/23 07:11 12/29/23 04:02 2 12/29/23 00:04 Laboratory Results Laboratory Results - last 24 hr 12/28/23 12/28/23 12/28/23 06:26 12:45 17:00 WBC RBC Hgb Hct MCV MCH MCHC RDW Std Deviation RDW Coeff of Marcos Plt Count MPV Immature Gran % (Auto) Neut % (Auto) Lymph % (Auto) [place] % (Auto) Eos % (Auto) Baso % (Auto) Neut # (Auto) Lymph # (Auto) [place] # (Auto) Eos # (Auto) Baso # (Auto) Immature Gran # (Auto) Sodium Potassium Chloride Carbon Dioxide Anion Gap BUN Creatinine Est Cr Clr Drug Dosing Est GFR ( Amer) Est GFR (Non-Af Amer) BUN/Creatinine Ratio Glucose POC Glucose 97 Calcium Total Bilirubin Lactate Dehydrogenase Total Creatine Kinase 30 Total Protein Albumin Urine Color Yellow Urine Appearance Clear Urine pH 5.0 Ur Specific [place] 1.013 Urine Protein Negative Urine Glucose (UA) Negative Urine Ketones Negative Urine Blood Negative Urine Nitrite Negative Urine Bilirubin Negative Urine Urobilinogen Negative Ur Leukocyte Esterase Negative 12/28/23 12/29/23 12/29/23 20:39 08:09 08:32 WBC 10.46 RBC 3.14 L Hgb 9.4 L Hct 29.4 L MCV 93.6 MCH 29.9 MCHC 32.0 RDW Std Deviation 42.0 RDW Coeff of Marcos 12.4 Plt Count 561 H MPV 8.6 L Immature Gran % (Auto) 0.7 Neut % (Auto) 79.4 Lymph % (Auto) 9.1 [place] % (Auto) 7.6 Eos % (Auto) 2.6 Baso % (Auto) 0.6 Neut # (Auto) 8.31 H Lymph # (Auto) 0.95 L [place] # (Auto) 0.80 H Eos # (Auto) 0.27 Baso # (Auto) 0.06 Immature Gran # (Auto) 0.07 Sodium 136 Potassium 4.1 Chloride 101 Carbon Dioxide 25 Anion Gap 10 BUN 34 H Creatinine 1.77 H D Est Cr Clr Drug Dosing 36.6 Est GFR ( Amer) 34.1 Est GFR (Non-Af Amer) 29.4 BUN/Creatinine Ratio 19.2 Glucose 104 H POC Glucose 146 H 95 Calcium 9.1 Total Bilirubin 0.5 Lactate Dehydrogenase 160 Total Creatine Kinase Total Protein 6.7 Albumin 3.3 L Urine Color Urine Appearance Urine pH Ur Specific [place] Urine Protein Urine Glucose (UA) Urine Ketones Urine Blood Urine Nitrite Urine Bilirubin Urine Urobilinogen Ur Leukocyte Esterase PG Care Time/CCT Total # of Minutes Spent Total Time Spent with Patient: Total time spent is greater than 50% in coordination of care (as documented) at patient's floor/unit and/or counseling patient: Coding Level of Care Code 50226 SUB INP/OBS CARE 3/50MIN Diagnoses STEWART (acute kidney injury) N17.9 Stage 3b chronic kidney disease (CKD) N18.32 Hypertension I10 Prediabetes R73.03 Lesion of lung R91.1
--- NOTE | 2023-12-29 13:07 | Pulmonology Progress Note ---
Date of Service December 29, 2023 Assessment & Plan (1) Lesion of lung: (2) Multiple pulmonary nodules: (3) Shortness of breath: (4) Pleural effusion: (5) Stage 3b chronic kidney disease (CKD): Plan CT chest 12/27/2023 personally reviewed: 7.3 cm right lower lobe mass with probable invasion of the pleura Multiple pulmonary nodules appreciated bilaterally Small right-sided pleural effusion Minimal mediastinal lymphadenopathy Interestingly patient did not have this finding or even a nodule in the right lower lobe on the CT chest 09/08/2022 -- Pulmonary mass with pleural mets New compared to CT chest 08/2022 Probability of it being malignancy is very high, it seems to be aggressive given the significant increase in size and less than 2 years -- Right-sided pleural effusion Likely from underlying malignancy --History of lung cancer mother was a non-smoker History of colon cancer in mother Plan: MRI of the brain was negative for definite evidence of intracranial metastatic disease. Patient is planned to have IR guided biopsy of the right pleural mets along with thoracentesis This will help with staging as well as diagnosis. This was explained to the patient and patient's family in depth. All questions and queries of the patient were answered Please note the above document was generated using voice recognition software. It may contain grammatical, syntax or spelling errors.Any formal questions or concerns about the content, text or information contained within the body of this dictation should be directly addressed to the provider for clarification. His Admission and Anticipated Discharge Date Admission Date: December 27, 2023 Subjective Patient seen and examined at bedside. No acute distress, notable symptoms overnight She was saturating 94% on 2 L nasal cannula. She stated that her breathing is a little bit better compared to when she came to the hospital She is feeling more energetic. No chest pain, no abdominal pain, no headache, no nausea, no vomiting Has been afebrile Patient's family was also in the room including her twin sister Review of Systems 2 Review of Systems: All systems reviewed & are unremarkable except as noted in Subjective Physical Exam 2 Physical Exam: Constitutional: No acute distress HEENT: EOMI, PERRLA Respiratory system: Decreased air entry on the right side, no wheeze, rhonchi, positive crackles on the right side CVS: S1-S2 positive, no murmurs or gallops Abdomen: Soft, nontender, nondistended, positive bowel sounds x4, obese Extremities: +2 pulses bilaterally radialis/ dorsalis pedis, no cyanosis, no edema Neuro: Awake alert oriented x3 Psych: Normal mood and affect G/U: No [place] Skin: no rashes, warm and dry Lymphatic: no cervical or axillary lymphadenopathy Results & Data Results & Data Vital Signs (Past 12 Hours) Vital Signs Temp Pulse Pulse Resp BP Pulse Ox O2 Del Method 12/29/23 10:59 36.6 C 98 H 20 118/70 94 Nasal Cannula 12/29/23 08:02 Nasal Cannula 12/29/23 07:55 36.8 C 95 H 20 130/69 94 Nasal Cannula 12/29/23 07:11 93 H 12/29/23 04:02 36.6 C 91 H 16 118/68 93 Nasal Cannula O2 Flow Rate 12/29/23 10:59 2 12/29/23 08:02 2 12/29/23 07:55 2 12/29/23 07:11 12/29/23 04:02 2 Laboratory Results 12/29/23 08:32 12/29/23 08:32 PG Care Time/CCT Total # of Minutes Spent Total Time Spent with Patient: Total time spent is greater than 50% in coordination of care (as documented) at patient's floor/unit and/or counseling patient: Coding Level of Care Code 39566 SUB INP/OBS CARE 3/50MIN Diagnoses Lesion of lung R91.1 Multiple pulmonary nodules R91.8 Shortness of breath R06.02 Pleural effusion J90 Stage 3b chronic kidney disease (CKD) N18.32
[2023-12-29] MEDS: LORazepam 0.5 MG TAB PO ONE (13:54)
--- NOTE | 2023-12-29 14:58 | Ultrasound Report ---
Ultrasound-guided right pleural lesion FNA and thoracentesis INDICATION: Possible pleural metastases and complex right pleural effusion COMPARISON: CT chest 12/17/2023 PROCEDURE: Procedure and risks were explained. Informed consent was obtained. A final timeout was com pleted. The right lateral thorax was prepped and draped in sterile fashion. 1% buffered lidocaine was utilized for skin anesthesia. Utilizing ultrasound guidance, a 22-gauge spinal needle was advanced into the right lateral pleural l esion. Ultrasound images were obtained. 2 aspirates were performed and given to the pathologist for r yosef. Next, a 5 Azeri safety centesis catheter was advanced into the complex right pleural effusion . Ultrasound images were obtained. Approximately 10 mL of sanguinous fluid was aspirated and sent to the lab for analysis. The catheter was removed and Band-Aid applied. The patient tolerated both proce dures well. Vital signs will be monitored on the floor and a chest x-ray will be obtained post proced ure. IMPRESSION: Right pleural lesion FNA and thoracentesis as detailed above. Performed, dictated, and signed by Schuyler Hardy PA-C; to be co-signed by Dr. Richard Andrade. Electronically signed by: Richard Andrade M.D. 12/29/2023 5:59 PM
--- NOTE | 2023-12-29 15:07 | XRay Report ---
SINGLE VIEW CHEST CLINICAL HISTORY: Status post thoracentesis FINDINGS: An AP upright chest radiograph is compared to chest x-ray and chest CT dated 12/27/2023. The top normal for projection. There is leftward shift of mediastinum. Opacification of the right lower lung is largely related to a known mass lesion nodules and consolidation. Additional smaller pulmonar y nodules scattered throughout both lungs were much better assessed on the recent CT scan. There is a the residual right pleural effusion No pneumothorax is seen. The skeletal structures are osteopenic. The bony thorax is grossly intact. IMPRESSION: 1. No pneumothorax is identified post procedure. 2. Residual right pleural effusion. 3. Opacification of the right mid to lower lung is related to consolidation and a known mass lesion. 4. Additional bilateral pulmonary nodules seen by CT are not well assessed by x-ray. ACT 112: Negative or not required by law. Electronically signed by: De Little M.D. 12/29/2023 3:05 PM
[2023-12-29] MEDS: fentaNYL citrate PF 100 MCG/2 ML VIAL ONE (15:14)
[2023-12-29 16:55] LABS: Total Protein Pleural Fluid 4.4 gm/dl
[2023-12-29 17:19] LABS: Appearance Pleural Fluid Bloody; Color Pleural Fluid Red; RBC Pleural Fluid Auto 318000 /uL; Source Pleural Fluid Right Lung; WBC Pleural Fluid Auto 2685 /uL
[2023-12-29 18:18] LABS: Lymphocytes, Fluid 44 %; Mono,Macrophage,Mesothelial 15 %; Neutrophils, Fluid 41 %
--- NOTE | 2023-12-30 09:22 | Anesthesiology Consultation ---
Date of Service December 30, 2023 Assessment & Plan Chart Review Chart Review: entry analyst initiated History Surgery Operation Date: 12/30/23 10:30 Proposed Procedures p [facility] Height/Weight Height: 5 ft 7 in Weight: 94.3 kg Allergies Allergy/AdvReac Type Severity Reaction Status Date / Time Penicillins Allergy Unknown STRONG Verified 12/27/23 19:23 FAMILY HX-NEVER USED. 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 "crime lab analyst" Verified 12/27/23 21:06 and "scented soap" - unknown rxn Medications Home Medications Medication Instructions Recorded Confirmed Last Taken acetaminophen 650 mg 0 mg PO DIRECTED PRN Pain 06/22/19 12/27/23 07/22/19 08:00 tablet,extended release (Tylenol Arthritis Pain) metformin 500 mg tablet 500 mg PO DAILY #90 tabs 01/03/23 12/27/23 Unknown fenofibrate micronized 43 mg 43 mg PO DAILY #90 caps 07/13/23 12/27/23 Unknown capsule rosuvastatin 40 mg tablet 40 mg PO DAILY #90 tabs 07/13/23 12/27/23 Unknown albuterol sulfate 90 mcg/actuation 1 puff inhalation Q6H PRN SOB #8.5 09/29/23 12/27/23 Unknown aerosol inhaler (ProAir HFA) grams empagliflozin 10 mg tablet 10 mg PO DAILY #30 tabs 10/30/23 12/27/23 Unknown (Jardiance) fluticasone propionate 44 0 puff inhalation BID 12/27/23 12/27/23 Unknown mcg/actuation HFA aerosol inhaler lisinopril 10 0 tab PO DAILY 12/27/23 12/27/23 Unknown mg-hydrochlorothiazide 12.5 mg tablet Active Medications Generic Name Dose Route Start Last Admin Trade Name Freq PRN Reason Stop Dose Admin Acetaminophen 650 mg 12/28/23 00:51 12/30/23 08:11 Acetaminophen 325 Mg Tab PO 01/27/24 00:50 650 mg Q4H PRN Administration Pain or Fever Heparin Sodium (Porcine) 5,000 units 12/28/23 00:51 12/28/23 01:52 Heparin Sod 5,000 Unit/0.5 Ml Vial SQ 01/27/24 00:50 5,000 units Q12 DARIUS Administration Ceftriaxone Sodium 2,000 mg/ 50 mls @ 100 mls/hr 12/28/23 18:00 12/29/23 17:44 Dextrose IV 01/04/24 17:59 Infused Q24H DARIUS Infusion Protocol Azithromycin 500 mg/ Dextrose 255 mls @ 125 mls/hr 12/28/23 16:00 12/29/23 19:17 IV 01/04/24 15:59 Infused Q24H DARIUS Infusion Rosuvastatin Calcium 10 mg 12/29/23 09:00 12/30/23 08:57 Rosuvastatin Calcium 10 Mg Tab PO 01/28/24 08:59 10 mg DAILY DARIUS Administration Past Medical History Medical History Hidradenitis suppurativa of left axilla Hypertension Arthritis Asthma stable Obesity Encephalitis at age 9, 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 Gil 12/04/20 +MRSA History of difficult intubation cystoscopy, right ureteroscopy, stent placement: 06/22/19: Elective glidescope #3 grade view 1 at [facility] History of tonsillectomy History of lithotripsy History of cystoscopy with stent History of foot surgery Right H/O knee surgery Bilateral History of ankle surgery Left Social History Smoking Status: Never smoker Do You Dip or Chew Tobacco: No Hx Alcohol Use: No alcohol intake frequency: holidays/special occasions only Hx Substance Use: No substance use type: does not use Physical Exam Vital Signs Last Vital Signs Temp 97.9 F 12/30/23 08:29 Pulse 97 H 12/30/23 08:29 Resp 20 12/30/23 08:29 BP 145/76 H 12/30/23 08:29 Pulse Ox 92 12/30/23 08:29 O2 Del Method Nasal Cannula 12/30/23 08:29 O2 Flow Rate 2 12/30/23 08:29 Testing Laboratory Results 12/29/23 08:32 12/29/23 08:32 PT 11.8 Seconds (9.0-12.0) 12/27/23 16:21 INR 1.1 (0.9-1.1) 12/27/23 16:21 APTT 28 Seconds (21-31) 12/27/23 16:21 Urine Color Yellow 12/28/23 12:45 Urine Appearance Clear (Clear) 12/28/23 12:45 Urine pH 5.0 (4.5-7.5) 12/28/23 12:45 Ur Specific [place] 1.013 (1.000-1.030) 12/28/23 12:45 Urine Protein Negative (Negative) 12/28/23 12:45 Urine Glucose (UA) Negative (Negative) 12/28/23 12:45 Urine Ketones Negative (Negative) 12/28/23 12:45 Urine Nitrite Negative (Negative) 12/28/23 12:45 Ur Leukocyte Esterase Negative (Negative) 12/28/23 12:45 12/27/23 21:37 Aerobic Blood Culture - Preliminary Blood No growth in Aerobic bottle after 48 hours. Anaerobic Blood Culture - Preliminary No growth in Anaerobic bottle after 48 hours. 12/27/23 21:54 Aerobic Blood Culture - Preliminary Blood No growth in Aerobic bottle after 48 hours. Anaerobic Blood Culture - Preliminary No growth in Anaerobic bottle after 48 hours. 12/29/23 Unknown Gram Stain - Final Pleural Fluid 12/30/23 07:51 POC Glucose 98 Electrocardiogram Date: 12/27/23 Sinus tachycardia, 117 bpm Right superior axis deviation Right ventricular hypertrophy Cannot rule out Anterior infarct , age undetermined Abnormal ECG When compared with ECG of 08-SEP-2022 09:53, Nonspecific T wave abnormality no longer evident in Lateral leads Confirmed by Raymond Lee ([id number]) on 12/29/2023 5:22:10 AM Chest X-Ray Date: 12/29/23 IMPRESSION: 1. No pneumothorax is identified post procedure. 2. Residual right pleural effusion. 3. Opacification of the right mid to lower lung is related to consolidation and a known mass lesion. 4. Additional bilateral pulmonary nodules seen by CT are not well assessed by x- ray. Echocardiogram Date: 06/22/19 Moderate concentric LVH LV systolic function is normal Grade 1 diastolic dysfunction LA is borderline dilated
[2023-12-30 09:35] LABS: Basophils # (auto) 0.07 K/uL (0.00-0.20); Basophils % (auto) 0.7 %; Eosinophils # (auto) 0.25 K/uL (0.00-0.50); Eosinophils % (auto) 2.4 %; Hematocrit (blood only) 28.2 % (37.0-47.0); Hemoglobin 8.8 g/dl (12.0-16.0); Immature Granulocytes # (auto) 0.07 K/uL (0.01-0.20); Immature Granulocytes % (auto) 0.7 %; Lymphocytes # (auto) 1.21 K/uL (1.20-3.40); Lymphocytes % (auto) 11.8 %; Mean Corpuscular Hemoglobin 29.1 pg (25.0-34.0); Mean Corpuscular Hgb Conc 31.2 g/dL (32.0-36.0); Mean Corpuscular Volume 93.4 fL (80.0-100.0); Mean Platelet Volume 8.6 fL (9.4-12.4); Monocytes # (auto) 1.03 K/uL (0.11-0.59); Monocytes % (auto) 10.1 %; Neutrophils # (auto) 7.61 K/uL (1.40-6.50); Neutrophils % (auto) 74.3 %; Platelet Count 575 K/uL (130-400); RDW Coefficient of Variation 12.3 % (11.5-14.5); RDW Standard Deviation 41.8 fL (36.4-46.3); Red Blood Count 3.02 M/uL (4.20-5.40); White Blood Count 10.24 K/ul (4.8-10.8)
[2023-12-30] MEDS ORDERED: fentaNYL citrate PF 100 MCG/2 ML VIAL IV PRN (09:47)
[2023-12-30] MEDS ORDERED: ATROPINE SULFATE 0.1 MG/ML 10ML SYR IV PRN (09:47)
[2023-12-30] MEDS ORDERED: ONDANSETRON INJ 2 MG/ML 2 ML VIAL IV PRN (09:47)
[2023-12-30] MEDS ORDERED: ePHEDrine sulfate 50 MG/ML AMP IV PRN (09:47)
[2023-12-30 09:53] LABS: BUN Creatinine Ratio 18.7 (10-20); Creatinine Clr Calc Pharmacy 46.9 ml/min; Est GFR (African American) 45.7 ml/min; Est GFR (Non-African American) 39.4 ml/min; Potassium 4.4 mmol/L (3.5-5.1)
[2023-12-30] MEDS ORDERED: fentaNYL citrate PF 100 MCG/2 ML VIAL ONE (10:08)
[2023-12-30] MEDS ORDERED: MIDAZOLAM HCL 1 MG/ML 2ML VIAL ONE (10:08)
--- NOTE | 2023-12-30 10:21 | Pulmonology Progress Note ---
Date of Service December 30, 2023 Assessment & Plan (1) Lesion of lung: (2) Multiple pulmonary nodules: (3) Shortness of breath: (4) Pleural effusion: (5) Stage 3b chronic kidney disease (CKD): Plan CT chest 12/27/2023 personally reviewed: 7.3 cm right lower lobe mass with probable invasion of the pleura Multiple pulmonary nodules appreciated bilaterally Small right-sided pleural effusion Minimal mediastinal lymphadenopathy Interestingly patient did not have this finding or even a nodule in the right lower lobe on the CT chest 09/08/2022 -- Pulmonary mass with pleural mets New compared to CT chest 08/2022 Probability of it being malignancy is very high, it seems to be aggressive given the significant increase in size and less than 2 years -- Right-sided pleural effusion Likely from underlying malignancy --History of lung cancer mother was a non-smoker History of colon cancer in mother Plan: MRI of the brain was negative for definite evidence of intracranial metastatic disease. Patient did have an IR guided biopsy of the right pleural mets and thoracentesis but unfortunately the pleural lesion seem to be an old clot and was only bloody. The fluid was also loculated and only 10 mL was able to be removed. I personally spoke with Mikie Hardy. Given the probability of getting an answer from the the procedure from yesterday is low, we will proceed with bronchoscopy with EBUS Risk and benefit of the procedure were explained to the patient in depth. She understands and agrees to go ahead with the procedure Please note the above document was generated using voice recognition software. It may contain grammatical, syntax or spelling errors.Any formal questions or concerns about the content, text or information contained within the body of this dictation should be directly addressed to the provider for clarification. His Admission and Anticipated Discharge Date Admission Date: December 27, 2023 Subjective Patient seen and examined at bedside in the ASU Overall she says she is feeling the same compared to yesterday Better since she came to the hospital No chest pain, no headache, no blurry vision Is n.p.o. Review of Systems 2 Review of Systems: All systems reviewed & are unremarkable except as noted in Subjective Physical Exam 2 Physical Exam: Constitutional: No acute distress HEENT: EOMI, PERRLA Respiratory system: Decreased air entry on the right side, no wheeze, rhonchi, positive crackles on the right side CVS: S1-S2 positive, no murmurs or gallops Abdomen: Soft, nontender, nondistended, positive bowel sounds x4, obese Extremities: +2 pulses bilaterally radialis/ dorsalis pedis, no cyanosis, no edema Neuro: Awake alert oriented x3 Psych: Normal mood and affect G/U: No [place] Skin: no rashes, warm and dry Lymphatic: no cervical or axillary lymphadenopathy Results & Data Results & Data Vital Signs (Past 12 Hours) Vital Signs Temp Pulse Pulse Pulse Resp BP Pulse Ox 12/30/23 09:52 36.8 C 98 H 18 147/73 H 95 12/30/23 08:29 36.6 C 97 H 20 145/76 H 92 12/30/23 03:53 37.1 C 108 H 18 146/71 H 95 12/29/23 23:33 94 H 12/29/23 23:26 36.4 C L 99 H 18 145/73 H 90 O2 Del Method O2 Flow Rate 12/30/23 09:52 Nasal Cannula 12/30/23 08:29 Nasal Cannula 2 12/30/23 03:53 Nasal Cannula 1 12/29/23 23:33 12/29/23 23:26 Nasal Cannula 1 Laboratory Results 12/30/23 09:05 12/30/23 09:05 PG Care Time/CCT Total # of Minutes Spent Total Time Spent with Patient: Total time spent is greater than 50% in coordination of care (as documented) at patient's floor/unit and/or counseling patient: Coding Level of Care Code 09079 SUB INP/OBS CARE 3/50MIN Diagnoses Lesion of lung R91.1 Multiple pulmonary nodules R91.8 Shortness of breath R06.02 Pleural effusion J90 Stage 3b chronic kidney disease (CKD) N18.32
[2023-12-30] MEDS: LACTATED RINGER'S 1,000 ML IV SCH (10:24)
[2023-12-30] MEDS ORDERED: ONDANSETRON INJ 2 MG/ML 2 ML VIAL ONE (11:18)
[2023-12-30] MEDS ORDERED: LIDOCAINE 2% 2 ML VIAL/AMP(20MG/ML) INFIL ONE (11:18)
[2023-12-30] MEDS ORDERED: PROPOFOL IV EMULSION 10 MG/ML 20 ML VIAL IV ONE (11:18)
--- NOTE | 2023-12-30 13:01 | Anesthesiology Progress Note ---
Date of Service December 30, 2023 Anesthesia Post Procedure Vital Signs Vital Signs: Temp Pulse Pulse Pulse Resp BP Pulse Ox 12/30/23 12:55 75 18 128/61 95 12/30/23 12:45 97.5 F L 78 16 121/61 95 12/30/23 12:35 77 17 128/59 L 95 12/30/23 12:25 77 19 115/51 L 95 12/30/23 12:15 97.3 F L 80 19 110/61 95 12/30/23 09:52 98.2 F 98 H 18 147/73 H 95 12/30/23 08:29 97.9 F 97 H 20 145/76 H 92 12/30/23 03:53 98.8 F 108 H 18 146/71 H 95 12/29/23 23:33 94 H 12/29/23 23:26 97.5 F L 99 H 18 145/73 H 90 12/29/23 19:55 98.1 F 93 H 18 120/69 94 12/29/23 19:25 12/29/23 15:40 99.1 F 101 H 20 137/56 L 92 O2 Del Method O2 Flow Rate 12/30/23 12:55 Nasal Cannula 4 12/30/23 12:45 Oxymask 5 12/30/23 12:35 Oxymask 10 12/30/23 12:25 Oxymask 10 12/30/23 12:15 Oxymask 10 12/30/23 09:52 Nasal Cannula 12/30/23 08:29 Nasal Cannula 2 12/30/23 03:53 Nasal Cannula 1 12/29/23 23:33 12/29/23 23:26 Nasal Cannula 1 12/29/23 19:55 Nasal Cannula 1 12/29/23 19:25 Nasal Cannula 2 12/29/23 15:40 Nasal Cannula 2 Transfer of Care Handoff Completed per policy Notes Mental Status: alert / awake / arousable and participated in evaluation Patient Amnestic to Procedure: Yes Nausea / Vomiting: adequately controlled Pain: adequately controlled Airway Patency, RR, SpO2: stable & adequate BP & HR: stable & adequate Hydration State: stable & adequate Anesthetic Complications: no major complications apparent and Pt Satisfied with anesthetic care
--- NOTE | 2023-12-30 13:19 | XRay Report ---
XR chest 1V portable CLINICAL HISTORY: EBUS COMPARISON STUDY: Chest CT December 27, 2023. Chest radiograph December 29, 2023. FINDINGS: There is no pneumothorax or pneumomediastinum. Extensive opacification of the right hemitho rax is noted. Moderate to large right pleural effusion has increased in size since prior exam. The kn own right hemithorax masses are obscured on this examination. Several left lung nodules are again not ed. There is no left pleural effusion. There is mild leftward mediastinal shift. IMPRESSION: 1. No pneumothorax or pneumomediastinum. Moderate to large right pleural effusion, increased in size since prior exam. A hemothorax would be difficult to exclude. Short-term imaging follow-up is recomme nded. 2. Multiple masses within the right hemithorax and left lung nodules, better depicted on prior chest CT. ACT 112: Negative or not required by law. Electronically signed by: Richard Andrade M.D. 12/30/2023 1:18 PM
--- NOTE | 2023-12-30 13:33 | Procedure Note ---
Procedure Note: Bronchoscopy Procedure PREOPERATIVE DIAGNOSIS: Pulmonary mass POSTOPERATIVE DIAGNOSIS: Right hilar mass PROCEDURE PERFORMED: Flexible fiberoptic bronchoscopy with with bronchial lavage, brushings, endotracheal forceps and EBUS COMPLICATIONS: None. INDICATION: Rule out malignancy PROCEDURE: After obtaining an informed consent, the patient was brought to the OR. The patient had appropriate oxygen, blood pressure, heart rate, and respiratory rate monitoring applied and monitored continuously throughout the procedure. Sedation was managed by anesthesia, please look at the records Bronchoscope was advanced through LMA. There was normal vocal cord motion without masses or lesions. Additional topical anesthesia with 1% lidocaine was applied to the trachea and brielle. The trachea appeared torturous. Anteriorly there were multiple polyps appreciated in the upper one third of the trachea. The bronchoscope was then advanced through the brielle, which was sharp. The scope was then advanced into the right main stem, the second brielle on the right side was widened, RBI lumen was narrowed as if something was pushing from the outside. And each segment, subsegement in the right upper lobe, right middle lobe and right lower lobe were visualized. There was minimal amount of clear secretion which was suctioned out. There were no other findings including evidence of mass, anatomic distortions, or hemorrhage. The bronchoscope was subsequently withdrawn and advanced into the left mainstem. Again, each segment and subsegment was well visualized. No specific masses or other lesions were identified throughout the tracheobronchial tree on the left. There was minimal amount of clear secretion which were suctioned out Flexible bronchoscope was withdrawn and EBUS was introduced The right hilar region was encased in highly vascular mass at station 10 R 13 passes were made of that hilar region with multiple sweeps. Station 7: 3 passes with multiple sweeps The bronchoscope was then wedged in the right lower lobe and bronchoalveolar lavage samples were obtained. 90 ml of saline was instilled and 35 ml of fluid was aspirated back.The bronchoscope was withdrawn and the area was suctioned clear. The bronchoscope was wedged in the right lower lobe anterior segment as well as RB 6 and brushings were obtained. Forceps biopsies were obtained of the polyps in the upper third of the trachea. Minimal hemorrhage was identified and suctioned clear without difficulty. The bronchoscope was then withdrawn to the mainstem. The area was suctioned timur r. The bronchoscope was then withdrawn. The patient tolerated the procedure well without evidence of desaturation or complications. Bronchoalveolar lavage samples were sent for cell count, Gram stain and bacterial culture, AFB culture and smear, fungal culture and smear and cytology. Endotracheal biopsy were sent for pathology. Recommendations: Follow-up micro, cytology and pathology Follow-up chest x-ray Please note the above document was generated using voice recognition software. It may contain grammatical, syntax or spelling errors.Any formal questions or c oncerns about the content, text or information contained within the body of this dictation should be directly addressed to the provider for clarification. [facility] [place] Codes (Charges) Pulmonary/Thoracic Procedure 1: Pulmonary and Thoracic: 11018 Bronchoscopy, w/EBUS 1 or 2 mediastinal Procedure 2: Pulmonary and Thoracic: 66408 Dx bronchoscopy/BAL Procedure 3: Pulmonary and Thoracic: 72130 Dx bronchoscopy/brush Procedure 4: Pulmonary and Thoracic: 06310 Bronchoscopy w bronchial or endobronchial bx
[2023-12-30 13:37] LABS: Fluid Mono/Macrophage 29 %; Lymphocyte Body Fluid Man 12 %; Neutrophil Body Fluid Man 57 %
[2023-12-30 13:38] LABS: Eosinophil Body Fluid Man 2 %
[2023-12-30 15:32] LABS: Hematocrit (blood only) 28.3 % (37.0-47.0)
[2023-12-30 15:58] LABS: INR 1.1 (0.9-1.1); Partial Thromboplastin Ratio 1.1; Partial Thromboplastin Time 30 Seconds (21-31); Prothrombin Time 11.6 Seconds (9.0-12.0)
[2023-12-30] MEDS: LIDOCAINE 1% LOCAL 20 ML VIAL ONE (17:26)
--- NOTE | 2023-12-30 18:58 | Hospitalist Progress Note ---
Date of Service December 30, 2023 Assessment & Plan (1) Dyspnea: Plan: Patient experienced a presyncopal episode while at an outpatient nephrology appointment on 12/27 CXR revealed a RLL airspace opacity, with concerns for trauma or mass Chest CT (without contrast in the setting of STEWART) revealed numerous pulmonary nodules as well as a right pleural mass concerning for metastatic disease of unknown origin Etiology unclear ?Infectious versus metastatic disease; in the setting of Flovent use and none demarcated 73 mm nodule, will order [facility] consulted. fluid seems exudative Sputum culture ordered, pending Blood cultures ordered, pending (note: ordered after abx given in the ED) COVID, flu, RSV negative Rocephin and azithromycin Supplemental O2 as needed Had EBUS today (12/30/2023). 4 samples collected and pending results. Bedside chest tube attempted, but unsuccessful due to fibrotic tissue. Discussed transfer to [facility] with Dr. Arguelles for VATS procedure. Unable to transfer at this time, will reevaluate if patient becomes unstable. (2) STEWART (acute kidney injury): Plan: STEWART improvingBUN 26, creatinine 1.39, EGFR 39.4. Hold lisinoprilHCTZ Avoid nephrotoxic agents (3) UTI (urinary tract infection): Plan: UA positive on 12/23 Clinically, patient endorses darker urine Urine culture ordered, pending Rocephin (as above) (4) Hypertension: Plan: Hold lisinoprilHCTZ (5) Asthma: Plan: Albuterol inhaler as needed (6) Prediabetes: Plan: Hold metformin, empagliflozin A1c at 6.2% on 10/10/2023 T2DM diet BSG ACHS Hold insulin for now Plan Disposition: Admit to [facility] telemetry Full code T2DM diet VTE PPx: Heparin 5000 units SQ q12h Admission and Anticipated Discharge Date Admission Date: December 27, 2023 Subjective Patient is seen and examined at bedside. She reports that she feels about the same as yesterday. She denies shortness of breath, chest pain, headache, blurry vision. I personally discussed the results of her ultrasound-guided right pleural mass aspiration from 12/29/2023 with the patient, and explained how it was a nondiagnostic specimen. Pleural fluid was exudative, bloody, and concerning for malignancy. Physical Exam Physical Exam: Constitutional: BRYAN x 3, no acute distress Pulm: Diminished breath sounds on the right side. On 3 L O2 via nasal cannula. No respiratory distress. Cardiac: RRR, no murmurs, rubs, or gallops. Results & Data Results & Data Vital Signs (Past 12 Hours) Vital Signs Temp Pulse Pulse Pulse Resp BP Pulse Ox 12/30/23 15:46 36.5 C 96 H 18 139/69 95 12/30/23 14:05 36.5 C 82 18 111/68 94 12/30/23 14:00 83 12/30/23 13:48 36.9 C 84 18 120/68 93 12/30/23 13:10 77 19 129/58 L 95 12/30/23 12:55 75 18 128/61 95 12/30/23 12:45 36.4 C L 78 16 121/61 95 12/30/23 12:35 77 17 128/59 L 95 12/30/23 12:25 77 19 115/51 L 95 12/30/23 12:15 36.3 C L 80 19 110/61 95 12/30/23 11:00 12/30/23 10:00 12/30/23 09:52 36.8 C 98 H 18 147/73 H 95 12/30/23 08:29 36.6 C 97 H 20 145/76 H 92 O2 Del Method O2 Flow Rate 12/30/23 15:46 Nasal Cannula 3 12/30/23 14:05 Nasal Cannula 3 12/30/23 14:00 12/30/23 13:48 Nasal Cannula 3 12/30/23 13:10 Nasal Cannula 4 12/30/23 12:55 Nasal Cannula 4 12/30/23 12:45 Oxymask 5 12/30/23 12:35 Oxymask 10 12/30/23 12:25 Oxymask 10 12/30/23 12:15 Oxymask 10 12/30/23 11:00 Oxymask 12/30/23 10:00 Nasal Cannula 2 12/30/23 09:52 Nasal Cannula 12/30/23 08:29 Nasal Cannula 2 Laboratory Results Reviewed CBC. Reviewed BMP. Reviewed pleural fluid specimen. Diagnostic Findings CXR: FINDINGS: There is no pneumothorax or pneumomediastinum. Extensive opacification of the right hemithorax is noted. Moderate to large right pleural effusion has increased in size since prior exam. The known right hemithorax masses are obscured on this examination. Several left lung nodules are again noted. There is no left pleural effusion. There is mild leftward mediastinal shift. IMPRESSION: 1. No pneumothorax or pneumomediastinum. Moderate to large right pleural effusion, increased in size since prior exam. A hemothorax would be difficult to exclude. Short-term imaging follow-up is recommended. 2. Multiple masses within the right hemithorax and left lung nodules, better depicted on prior chest CT. (1) Dyspnea Dyspnea type: shortness of breath Qualified Code(s): R06.02 - Shortness of breath
--- NOTE | 2023-12-30 19:08 | Communication Note ---
Date of Service: December 30, 2023 Pulmonary addendum: Patient's chest x-ray since coming to the hospital has been progressively getting worse on the right side with respect to pleural effusion She did have a trial of thoracentesis on 12/29/2023 but it was significantly loculated only 10 mL was able to be taken out. Chest x-ray postprocedure showed worsening of the right-sided pleural effusion. Patient underwent EBUS today. Chest x-ray post EBUS showed more worsening of the right-sided pleural effusion Patient's H&H is stable. During EBUS the right hilar mass seem to be very vascular. I think patient is slowly losing into the right pleural space from the mass itself I try to see if I am able to put pigtail catheter in. Patient has significant loculation/fibrosis on the right side. She has a loculated effusion anteriorly parasternally around the second-third intercostal space. Given the significant fibrosis and loculation, slowly oozing right hilar mass. I think patient will benefit from VATS This was relayed to the patient. She and her sister understand and are agreeable to it. Dr. Madrigal was also made aware. Please note the above document was generated using voice recognition software. It may contain grammatical, syntax or spelling errors.Any formal questions or concerns about the content, text or information contained within the body of this dictation should be directly addressed to the provider for clarification. Coding Level of Care Code None
[2023-12-30] MEDS: ONDANSETRON INJ 2 MG/ML 2 ML VIAL IV PRN (20:21)
[2023-12-30 21:32] LABS: Influenza A virus by PCR Negative (Neg); Influenza B virus by PCR Negative (Neg); RSV by PCR Negative (Neg); SARS CoV2 RNA(COVID-19) Ceph NEGATIVE (Negative)
--- NOTE | 2023-12-31 07:23 | Pulmonology Progress Note ---
Date of Service December 31, 2023 Assessment & Plan (1) Lesion of lung: (2) Multiple pulmonary nodules: (3) Shortness of breath: (4) Pleural effusion: (5) Stage 3b chronic kidney disease (CKD): Plan CT chest 12/27/2023 personally reviewed: 7.3 cm right lower lobe mass with probable invasion of the pleura Multiple pulmonary nodules appreciated bilaterally Small right-sided pleural effusion Minimal mediastinal lymphadenopathy Interestingly patient did not have this finding or even a nodule in the right lower lobe on the CT chest 09/08/2022 -- Pulmonary mass with pleural mets New compared to CT chest 08/2022 Probability of it being malignancy is very high, it seems to be aggressive given the significant increase in size and less than 2 years S/p IR guided biopsy of the right pleural mets and thoracentesis on 12/29/2023 but unfortunately the pleural lesion seem to be an old clot and was only bloody. The fluid was also loculated and only 10 mL was able to be removed. S/p EBUS 12/30/2023 MRI of the brain was negative for definite evidence of intracranial metastatic disease. -- Right-sided pleural effusion Likely from underlying malignancy --History of lung cancer mother was a non-smoker History of colon cancer in mother Plan: Chest x-ray from today still shows moderate to large right-sided pleural effusion, there is improved aeration of the right upper lobe compared to yesterday. Given the significant fibrosis and loculation, slowly oozing right hilar mass. I think patient will benefit from VATS All questions and queries of the patient as well as patient's sister were answered in depth Case was discussed with primary team Please note the above document was generated using voice recognition software. It may contain grammatical, syntax or spelling errors.Any formal questions or concerns about the content, text or information contained within the body of this dictation should be directly addressed to the provider for clarification. His Admission and Anticipated Discharge Date Admission Date: December 27, 2023 Subjective Patient seen and examined at bedside. No acute distress, notable since overnight Patient's twin sister was in the room at the time of examination She says she is feeling the same when it comes to her breathing. No significant worsening Did bring up little bit of blood when she coughed up. It has decreased in intensity and frequency No chest pain No nausea vomiting Fair appetite Review of Systems 2 Review of Systems: All systems reviewed & are unremarkable except as noted in Subjective Physical Exam 2 Physical Exam: Constitutional: No acute distress HEENT: EOMI, PERRLA Respiratory system: Decreased air entry on the right side, no wheeze, rhonchi, positive crackles on the right side CVS: S1-S2 positive, no murmurs or gallops Abdomen: Soft, nontender, nondistended, positive bowel sounds x4, obese Extremities: +2 pulses bilaterally radialis/ dorsalis pedis, no cyanosis, no edema Neuro: Awake alert oriented x3 Psych: Normal mood and affect G/U: No Jackson Skin: no rashes, warm and dry Lymphatic: no cervical or axillary lymphadenopathy Results & Data Results & Data Vital Signs (Past 12 Hours) Vital Signs Temp Pulse Pulse Resp BP Pulse Ox O2 Del Method 12/31/23 03:14 37.1 C 86 16 113/69 93 Nasal Cannula 12/30/23 23:16 36.8 C 104 H 18 126/74 94 Nasal Cannula 12/30/23 22:04 105 H 12/30/23 20:14 36.6 C 100 H 20 132/55 L 92 Nasal Cannula 12/30/23 19:45 Nasal Cannula O2 Flow Rate 12/31/23 03:14 2 12/30/23 23:16 3 12/30/23 22:04 12/30/23 20:14 3 12/30/23 19:45 3 Laboratory Results 12/30/23 15:00 12/30/23 09:05 PG Care Time/CCT Total # of Minutes Spent Total Time Spent with Patient: Total time spent is greater than 50% in coordination of care (as documented) at patient's floor/unit and/or counseling patient: Coding Level of Care Code 87852 SUB INP/OBS CARE 3/50MIN Diagnoses Lesion of lung R91.1 Multiple pulmonary nodules R91.8 Shortness of breath R06.02 Pleural effusion J90 Stage 3b chronic kidney disease (CKD) N18.32
--- NOTE | 2023-12-31 08:19 | XRay Report ---
XR chest 1V portable HISTORY: 68 years-old Female f/u acute shortness of breath COMPARISON: Chest radiograph 12/30/2023, chest CT 12/27/2023 TECHNIQUE: AP view of the chest FINDINGS: There is no pneumothorax or pneumomediastinum. Extensive opacification of the right hemithorax is not ed with mildly improved aeration of the right upper lung. Moderate to large right pleural effusion ag ain noted. The known right hemithorax masses are obscured on this examination. Several left lung nodu les are again seen. There is no left pleural effusion. There is mild leftward mediastinal shift. IMPRESSION: 1. Moderate to large right-sided pleural effusion with right lung volume loss redemonstrated. There i s mildly improved aeration of the right lung compared to yesterday's exam. 2. Multiple masses within the right hemithorax and left lung nodules, better depicted on prior chest CT. ACT 112: Negative or not required by law. The above report was generated using voice recognition software. It may contain grammatical, syntax o r spelling errors. Electronically signed by: Fredy Little M.D. 12/31/2023 8:16 AM
--- NOTE | 2023-12-31 11:01 | Discharge Summary ---
Date of Service December 31, 2023 Admission HPI Per Admitting Provider Troy is a 68-year-old female with PMH of right UPJ kidney stone, hydroureteronephrosis, ureteral lithiasis, HTN, asthma, osteopenia, CKD stage IIIb, psoriasis, and hypertriglyceridemia. She presented for hypotension and chest palpitations on 12/27 after a nephrology visit at Dr. Mcduffie's office. Patient went to appointment with her twin sister (Teetee), who she lives with, and reports that she had a spaced out episode where she was unresponsive and started falling to her side. The patient is unsure if she lost consciousness, but notes that she was feeling dizzy, and seeing "spots/colors". Patient's sister reports she thought she was having a stroke at the time; no prior medical history of stroke, but patient notes that her mother had a stroke. Patient reports that she was been feeling exhausted since she woke up this morning, and struggled to shower because it took a lot out of her. She has had a productive cough (yellow sputum production) since November. She also reports she has been winded since the beginning of November; she has not been moving around much at the house, and notes she feels winded when trying to get up to the bathroom. Patient reports she has been using her albuterol inhaler 3 times per day recently due to CALDERON. She took her lisinoprilHCTZ this morning, no other medications. No recent change in medications. She denies fever, and has been taking her temperature at home. She had 1 episode of vomiting after coughing up mucus. Patient lives with her twin sister and there are 2 cats. She reports no sick contacts. Vitals: She has been tachycardic in the ED, and is 111 bpm at time of admission; SpO2 94% on RA. ED course: NSS 1000 mL IV Rocephin 1000 mg IV Azithromycin 500 mg p.o. ROS: Patient endorses dizziness, lightheadedness, SILVERIO (secondary to abx in the ED), chest palpitations, heart racing, CALDERON, nausea, vomiting x1, and darker urine color. Patient denies fever, chills, nightsweats, chest pain, SOB at rest, pleuritic CP, hemoptysis, urinary s/s, burning with urination, dysuria, or numbness/tingling/pain/redness in legs or arms. Principal Diagnosis (1) Lesion of lung (2) Multiple pulmonary nodules (3) Shortness of breath (4) Pleural effusion (5) Stage 3b chronic kidney disease (CKD) Discharge Exam Pt was transferred prior to being seen. Discharge Data Allergies Allergy/AdvReac Type Severity Reaction Status Date / Time Penicillins Allergy Unknown STRONG Verified 12/27/23 19:23 FAMILY HX-NEVER USED. 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 "locker attendant" Verified 12/27/23 21:06 and "scented soap" - unknown rxn Consultations 12/27/23 19:56 ED Decision to Admit Stat 12/28/23 00:51 Consult Pulmonology Routine Procedures Performed Operation Date: 12/30/23 10:30 Actual Procedures p Endobronchial Ultrasound(Not Applicable) - [facility] Ordered Studies 12/27/23 17:22 CT chest diagnostic wo con Stat 12/27/23 23:05 US venous doppler LE BI Stat 12/28/23 10:49 MR brain wo con Routine 12/28/23 11:02 CT Abdomen and Pelvis [CT abd pelvis wo con] Routine 12/29/23 12:41 IR thoracentesis wo tube US Routine 12/29/23 12:44 IR FNA w/img 1st lesion US Routine 12/30/23 13:27 US point of care ultrasound Urgent Hospital Course (1) Dyspnea: Patient experienced a presyncopal episode while at an outpatient nephrology appointment on 12/27 CXR revealed a RLL airspace opacity, with concerns for trauma or mass Chest CT (without contrast in the setting of STEWART) revealed numerous pulmonary nodules as well as a right pleural mass concerning for metastatic disease of unknown origin Etiology unclear ?Infectious versus metastatic disease; in the setting of Flovent use and none demarcated 73 mm nodule, will order Fungitell Pulmonary consulted. Fluid seems exudative Blood cultures ordered, no growth after 48 hours on preliminary report (note: ordered after abx given in the ED) COVID, flu, RSV negative Rocephin and azithromycin Supplemental O2 as needed Chest CT 12/27/2023: 7.3 cm right lower lobe mass with probable invasion of the pleura. Multiple pulmonary nodules appreciated bilaterally. Small right-sided pleural effusion. Minimal mediastinal lymphadenopathy. Interestingly, patient did not have this finding or even a nodule in the right lower lobe on the CT chest from 09/08/2022. Pulmonary mass with pleural mets. New compared to CT chest from 08/2022. Probability of it being malignancy is very high, it seems to be aggressive given the significant increase in size in less than 2 years. Right-sided pleural effusion. Likely from underlying malignancy. History of lung cancer in mother, non-smoker History of colon cancer in mother Brain MRI 12/28/2023: Negative for definite evidence of intracranial metastatic disease. IR on 12/29/2023: Patient did have an IR guided biopsy of the right pleural mass and thoracentesis, but unfortunately the pleural lesions seem to be an old clot and was only bloody. The fluid was also loculated and only 10 mL was able to be removed. EBUS on 12/30/2023: 4 samples collected and pending results. Bedside chest tube attempted, but unsuccessful due to fibrotic tissue. Patient's chest x-ray since coming to the hospital has been progressively getting worse on the right side with respect to pleural effusion. She did have a trial of thoracentesis on 12/29/2023, but it was significantly loculated only 10 mL was able to be taken out. Chest x-ray postprocedure showed worsening of the right-sided pleural effusion. After patient underwent EBUS on 12/30/2023, chest x-ray post EBUS showed more worsening of the right-sided pleural effusion. Patient's H&H is stable. During EBUS the right hilar mass seemed to be very vascular. Pulmonary thinks patient is slowly losing into the right pleural space from the mass itself. Patient has significant loculation/fibrosis on the right side. She has a loculated effusion anteriorly parasternally around the secondthird intercostal space. Given the significant fibrosis and loculation and slowly oozing right hilar mass, pulmonary thinks patient will benefit from VATS procedure. Discussed transfer to [facility] with Dr. Arguelles on 12/30/2023 for VATS procedure. Patient was transferred via EMS in the morning on 12/31/2023. (2) STEWART (acute kidney injury): STEWART improvingBUN 26, creatinine 1.39, EGFR 39.4. Hold lisinoprilHCTZ Avoid nephrotoxic agents (3) UTI (urinary tract infection): UA positive on 12/23 Clinically, patient endorses darker urine Urine culture ordered, pending Rocephin (as above) (4) Hypertension: Hold lisinoprilHCTZ (5) Asthma: Albuterol inhaler as needed (6) Prediabetes: Hold metformin, empagliflozin A1c at 6.2% on 10/10/2023 T2DM diet BSG ACHS Hold insulin for now Plan Disposition: Admit to [facility] telemetry Full code T2DM diet VTE PPx: Heparin 5000 units SQ q12h Total Time Total Time Spent Total Time Spent (In Minutes): Greater than 30 minutes spent completing this discharge process including direct patient care, medication reconciliation, documentation, review of labs and images, and coordination of care. Discharge Plan Discharge Items Patient Disposition: Transfer Acute [facility] Reason For Visit: STEWART, PRESYNCOPE, CALDERON Discharge Diagnosis: pleural effusion Activity: Per Instructions section Non-emergency contact: Primary Care Provider Call non-emergency contact if: your symptoms worsen Follow-up/Referrals: Riya Zelaya MD [Primary Care Provider] - Diet: Carb Consistent or DM2 Addtl Attending Provider Instructions: (1) Dyspnea: Plan: Patient experienced a presyncopal episode while at an outpatient nephrology appointment on 12/27 CXR revealed a RLL airspace opacity, with concerns for trauma or mass Chest CT (without contrast in the setting of STEWART) revealed numerous pulmonary nodules as well as a right pleural mass concerning for metastatic disease of unknown origin Etiology unclear ?Infectious versus metastatic disease; in the setting of Flovent use and none demarcated 73 mm nodule, will order Fung[facility]ell Pulmonary consulted. Fluid seems exudative Blood cultures ordered, no growth after 48 hours on preliminary report (note: ordered after abx given in the ED) COVID, flu, RSV negative Rocephin and azithromycin Supplemental O2 as needed Chest CT 12/27/2023: 7.3 cm right lower lobe mass with probable invasion of the pleura. Multiple pulmonary nodules appreciated bilaterally. Small right-sided pleural effusion. Minimal mediastinal lymphadenopathy. Interestingly, patient did not have this finding or even a nodule in the right lower lobe on the CT chest from 09/08/2022. Pulmonary mass with pleural mets. New compared to CT chest from 08/2022. Probability of it being malignancy is very high, it seems to be aggressive given the significant increase in size in less than 2 years. Right-sided pleural effusion. Likely from underlying malignancy. History of lung cancer in mother, non-smoker History of colon cancer in mother Brain MRI 12/28/2023: Negative for definite evidence of intracranial metastatic disease. IR on 12/29/2023: Patient did have an IR guided biopsy of the right pleural mass and thoracentesis, but unfortunately the pleural lesions seem to be an old clot and was only bloody. The fluid was also loculated and only 10 mL was able to be removed. EBUS on 12/30/2023: 4 samples collected and pending results. Bedside chest tube attempted, but unsuccessful due to fibrotic tissue. Patient's chest x-ray since coming to the hospital has been progressively getting worse on the right side with respect to pleural effusion. She did have a trial of thoracentesis on 12/29/2023, but it was significantly loculated only 10 mL was able to be taken out. Chest x-ray postprocedure showed worsening of the right-sided pleural effusion. After patient underwent EBUS on 12/30/2023, chest x-ray post EBUS showed more worsening of the right-sided pleural effusion. Patient's H&H is stable. During EBUS the right hilar mass seemed to be very vascular. Pulmonary thinks patient is slowly losing into the right pleural sp kathi from the mass itself. Patient has significant loculation/fibrosis on the right side. She has a loculated effusion anteriorly parasternally around the secondthird intercostal space. Given the significant fibrosis and loculation and slowly oozing right hilar mass, pulmonary thinks patient will benefit from VATS procedure. Discussed transfer to [facility] with Dr. Arguelles on 12/30/2023 for VATS procedure. Patient was transferred via EMS in the morning on 12/31/2023. (2) STEWART (acute kidney injury): Plan: STEWART improvingBUN 26, creatinine 1.39, EGFR 39.4. Hold lisinoprilHCTZ Avoid nephrotoxic agents (3) UTI (urinary tract infection): Plan: UA positive on 12/23 Clinically, patient endorses darker urine Urine culture ordered, pending Rocephin (as above) (4) Hypertension: Plan: Hold lisinoprilHCTZ (5) Asthma: Plan: Albuterol inhaler as needed (6) Prediabetes: Plan: Hold metformin, empagliflozin A1c at 6.2% on 10/10/2023 T2DM diet BSG ACHS Hold insulin for now Plan Full code VTE PPx: Heparin 5000 units SQ q12h Pending Studies at Discharge: Yes Stand-Alone Forms: My [facility] Skilled Items Patient informed of condition?: Yes DNR: Yes Discharge Level of Care: Other Communicable Disease: No Discharge Prognosis: Stable Lines: Peripheral IV Urinary Catheter: No Medications and DC Order Prescriptions: Continued metformin 500 mg tablet 500 mg PO DAILY Qty: 90 3RF fenofibrate micronized 43 mg capsule 43 mg PO DAILY Qty: 90 3RF rosuvastatin 40 mg tablet 40 mg PO DAILY Qty: 90 3RF albuterol sulfate [ProAir HFA] 90 mcg/actuation HFA aerosol inhaler 1 puff INHALATION Q6H PRN (Reason: SOB) Qty: 8.5 3RF Jardiance 10 mg tablet 10 mg PO DAILY Qty: 30 2RF acetaminophen [Tylenol Arthritis Pain] 650 mg Tablet Extended Release 0 mg PO DIRECTED PRN (Reason: Pain) Rx Instructions: Unable to verify OTC meds at this time fluticasone propionate 44 mcg/actuation HFA aerosol inhaler 0 puff inhalation BID Rx Instructions: Unable to verify w/ patient at this date/time. Original Directions: 1 puff bid. lisinopril-hydrochlorothiazide 10-12.5 mg tablet 0 tab PO DAILY Rx Instructions: Unable to verify w/ patient at this date/time. Original Directions: 1 tab by mouth daily Discharge Orders: Discharge Order (Routine); Ordered 12/30/23 Ordered By: Socorro Trujillo Admission Data Admit Date/Time: 12/27/23 20:59 Attending Provider: Ashwin Madrigal Admit Provider: Renetta Bradley Primary Care Provider: Riya Zelaya Other Providers: Renetta Bradley; Lance Cee Coding Level of Care Code 61209 INP/OBS DISCH >30 MIN Diagnoses Shortness of breath R06.02 Dyspnea type: shortness of breath STEWART (acute kidney injury) N17.9 UTI (urinary tract infection) N39.0 Hypertension I10 Asthma J45.909 Prediabetes R73.03
[2024-01-01 19:42] LABS: Fungitell (1-3)-B-D-Glucan <31 pg/mL
== END 2023-12-31 10:09 | disposition short-term general hospital (02) | DRG 166 ==
LOC: ED 15:52 → EDINP 20:59 → SUATTDRO 20:59 → EDINP 12-28 00:19 → 2N 12-28 01:12
DX: L40.9 Psoriasis, unspecified; N39.0 Urinary tract infection, site not specified; C78.2 Secondary malignant neoplasm of pleura; Z88.5 Allergy status to narcotic agent; N17.0 Acute kidney failure with tubular necrosis; E87.1 Hypo-osmolality and hyponatremia; Z86.61 Personal history of infections of the central nervous system; N18.32 Chronic kidney disease, stage 3b; E86.0 Dehydration; J45.909 Unspecified asthma, uncomplicated; C34.91 Malignant neoplasm of unspecified part of right bronchus or lung; Z88.0 Allergy status to penicillin; I12.9 Hypertensive chronic kidney disease with stage 1 through stage 4 chronic kidney disease, or unspecified chronic kidney disease; J84.10 Pulmonary fibrosis, unspecified; J91.0 Malignant pleural effusion; R73.03 Prediabetes

== ENCOUNTER 2024-01-15 04:11 | Inpatient (IN) ==
--- OUTSIDE RECORDS SUMMARY | 2024-01-15 04:17 | External Medical Summary | Summary of Care ---
Author Name Unknown Organization [facility] Address [address] [place] [address] Phone [phone] Care Team Providers Care Weft Straightener Name Role Phone Riya Zelaya MD Primary Care Provider [phone] Encounter Details Date Type Department Care Team (Latest Contact Info) Description 12/29/2023 2:55 PM EST - 12/29/2023 11:59 PM EST Hospital Encounter Radiology Film File [address] [place] [address] Discharge Disposition: Home - Self Care Allergies Active Allergy Reactions Criticality Noted Date Comments Penicillins 01/04/2024 Sulfa Antibiotics 01/04/2024 documented as of this encounter (statuses as of 01/05/2024) Medications No known medicationsdocumented as of this encounter (statuses as of 01/05/2024) Active Problems Problem Noted Date Diagnosed Date Mass of right lung 12/31/2023 Acute hypoxic respiratory failure 12/31/2023 Uncomplicated asthma 12/31/2023 Prediabetes 12/31/2023 HTN, goal below 130/80 12/31/2023 Stage 3b chronic kidney disease 12/31/2023 Dyslipidemia 12/31/2023 Lymph node enlargement 12/31/2023 Hemothorax on right 12/30/2023 documented as of this encounter (statuses as of 01/05/2024) Social History Tobacco Use Types Packs/Day Years Used Date Smoking Tobacco: Never Assessed Sex and Gender Information Value Date Recorded Sex Assigned at Not on file Gender Identity Not on file Sexual Orientation Not on file Job Start Date Occupation Industry Not on file Not on file Not on file documented as of this encounter Plan of Treatment Health Maintenance Due Date Last Done Comments Lipid Panel 1957 HbA1c 1965 Depression Screening 1969 Albumin/Creatinine Ratio 1975 Hepatitis C Screening 1975 Mammogram 1997 Cologuard 2002 Colonoscopy 2002 Colorectal Cancer Screening 2002 Fecal Occult Blood Test 2002 Sigmoidoscopy 2002 DXA Scan 2022 GFR 07/05/2024 01/05/2024, 12/16, 01/03/2024, Additional history exists DTaP,Tdap,and Td Vaccines (2 - Td or Tdap) 08/27/2030 08/27/2020 Zoster Vaccines Completed 10/05/2020, 08/04/2020 COVID-19 Vaccine Completed 08/25/2023, 10/2023, 07/28/2022, Additional history exists Influenza Vaccine (FLU shot) Completed 10/2023, 07/28/2022, 07/28/2022, Additional history exists Pneumococcal Vaccine: 65+ Years Completed 10/19/2023 GARDASIL-HPV IMMUNIZATION SERIES Aged Out No longer eligible based on patient's age to complete this topic Hepatitis B Aged Out No longer eligi ble based on patient's age to complete this topic MENINGOCOCCAL (MENACTRA/MENVEO) Aged Out No longer eligible based on patient's age to complete this topic documented as of this encounter Medical Devices Not on filedocumented as of this encounter Procedures Procedure Name Priority Date/Time Associated Diagnosis Comments RADIOLOGY EXAM - GENERAL RAD (IMAGES ONLY,NO REPORT) Routine 12/29/2023 2:55 PM EST documented in this encounter Results * RADIOLOGY EXAM - GENERAL RAD (IMAGES ONLY,NO REPORT) (12/29/2023 2:55 PM EST) 12/29/2023 2:4 9 PM EST Narrative Scheduling, Silent - 01/04/2024 12:15 PM EST This is an imaging study not interpreted or resulted by a [facility] or [employer] contracted radiologist. Jose Palacios DO RADIOLOGY (RAD GENERAL) documented in this encounter Advance Directives Latest Code Status on File Code Status Date Activated Date Inactivated Comments Full Code 12/31/2023 12:19 PM This orde r reflects the patients wishes and were consensually agreed upon. Question Answer Comments Discussion of Advance Directives occurred with: Patient Care Teams Weft Straightener Relationship Specialty Start Date End Date Riya Zelaya MD [address] [place] [address] ARINA [place] [address] PCP - General Family Medicine 10/14/23 documented as of this encounter
--- OUTSIDE RECORDS SUMMARY | 2024-01-15 04:17 | External Medical Summary ---
Author Name Unknown Address Unknown Organization [id number]:[facility] [address] [facility] [address] Laboratory Report Ordering Provider Test Date Status GURPREET BRENNER 01/08/2024 06:37:00 Final Observation Date Value Abnormality Reference (Units ) Status Phosphate 01/08/2024 06:37:00 3.3 2.5-4.8 (m g/dL) Final Performing Location [facility] - [address] [facility] [address]
--- OUTSIDE RECORDS SUMMARY | 2024-01-15 04:17 | External Medical Summary ---
Author Name Unknown Address Unknown Organization [id number]:[facility] - [address] [facility] [address] Laboratory Report Ordering Provider Test Date Status GURPREET BRENNER 01/10/2024 06:27:00 Final Observation Date Value Abnormality Reference (Units ) Status WBC, Total 01/10/2024 06:27:00 14.32 Above high normal 4.00-10.80 (K/uL) Final RBC 01/10/2024 06:27:00 2.46 3.85-5.15 (M/uL) Final Hemoglobin 01/10/2024 06:27:00 7.6 Below low normal 12.0-15.3 (g/dL) Final HCT 01/10/2024 06:27:00 24.6 Below low normal 36.0-45.2 (%) Final MCV 01/10/2024 06:27:00 100.0 81.5-97.5 (fL) Final MCH 01/10/2024 06:27:00 30.9 27.0-34.0 (pg) Final MCHC 01/10/2024 06:27:00 30.9 32.0-36.0 (g/dL) Final RDW 01/10/2024 06:27:00 13.5 11.5-15.5 (%) Final Platelets 01/10/2024 06:27:00 591 Above high normal 140-400 (K/uL) Final MPV 01/10/2024 06:27:00 8.4 6.6-11.1 (fL) Final Nucleated erythrocytes/100 leukocytes [Ratio] in Blood by Automated count 01/10/2024 06:27:00 0 <=0 (/100 WBCs) Final Performing Location LAB[facility]AT[facility] - [address] [place] [address]
--- OUTSIDE RECORDS SUMMARY | 2024-01-15 04:17 | External Medical Summary ---
Author Name Unknown Address Unknown Organization [id number]:[facility] - [address] [facility] [address] Laboratory Report Ordering Provider Test Date Status GURPREET BRENNER 01/05/2024 08:22:00 Final Observation Date Value Abnormality Reference (Units ) Status Magnesium 01/05/2024 08:22:00 2.2 1.5-2.6 (m g/dL) Final Performing Location [facility] - [address] [facility] [address]
--- OUTSIDE RECORDS SUMMARY | 2024-01-15 04:17 | External Medical Summary ---
Author Name Unknown Address Unknown Organization [id number]:[facility] - [address] [facility] [address] Laboratory Report Ordering Provider Test Date Status GURPREET BRENNER 01/13/2024 07:04:00 Final Observation Date Value Abnormality Reference (Units ) Status WBC, Total 01/13/2024 07:04:00 14.23 Above high normal 4.00-10.80 (K/uL) Final RBC 01/13/2024 07:04:00 2.44 3.85-5.15 (M/uL) Final Hemoglobin 01/13/2024 07:04:00 7.5 Below low normal 12.0-15.3 (g/dL) Final HCT 01/13/2024 07:04:00 24.2 Below low normal 36.0-45.2 (%) Final MCV 01/13/2024 07:04:00 99.2 81.5-97.5 (fL) Final MCH 01/13/2024 07:04:00 30.7 27.0-34.0 (pg) Final MCHC 01/13/2024 07:04:00 31.0 32.0-36.0 (g/dL) Final RDW 01/13/2024 07:04:00 13.7 11.5-15.5 (%) Final Platelets 01/13/2024 07:04:00 552 Above high normal 140-400 (K/uL) Final MPV 01/13/2024 07:04:00 8.3 6.6-11.1 (fL) Final Nucleated erythrocytes/100 leukocytes [Ratio] in Blood by Automated count 01/13/2024 07:04:00 0 <=0 (/100 WBCs) Final Performing Location [facility] - [address] [place] [address]
--- OUTSIDE RECORDS SUMMARY | 2024-01-15 04:17 | External Medical Summary ---
Author Name Unknown Address Unknown Organization [id number]:[facility] - [address] [facility] [address] Laboratory Report Ordering Provider Test Date Status GURPREET BRENNER 01/10/2024 06:27:00 Final Observation Date Value Abnormality Reference (Units ) Status Phosphate 01/10/2024 06:27:00 3.2 2.5-4.8 (m g/dL) Final Performing Location [facility] - [address] [facility] [address]
--- OUTSIDE RECORDS SUMMARY | 2024-01-15 04:17 | External Medical Summary | Summary of Care ---
Author Name Unknown Organization [facility] Address [address] [place] [address] Phone [phone] Care Team Providers Care Detention Attendant Name Role Phone Ailin Zelaya MD Primary Care Provider [phone] Reason for Visit * Auth/Cert Specialty Diagnoses / Procedures Referred By Contac t Referred To Contact Diagnoses Mass of right lung New right lung mass, SOB, Pleural effusion Referral ID Status Reason Start Date Expiration Date Visits Re quested Visits Authorized [id number] Encounter Details Date Type Department Care Team (Latest Contact Info) Description 12/31/2023 11:42 AM EST - 01/13/2024 6:13 PM EST Hospital Encounter [facility] [address] FLO[facility] [address] [place] [address] Dionte Westbrook MD [address] [facility] [place] [address] London Aguirre MD [address] [place] [address] Susan Franks MD [address] [place] [address] Tavia Ward MD [address], [place] [id number] Various: CDIQDC,EKG Discharge Disposition: Home - Self Care Allergies Active Allergy Reactions Criticality Noted Date Comments Penicillins 01/04/2024 Sulfa Antibiotics 01/04/2024 documented as of this encounter (statuses as of 01/14/2024) Medications Medication Sig Dispensed Refills Start Date End Date Status Fluticasone Propionate HFA 44 MCG/ACT Inhalation Aerosol (Flovent HFA) Inhale 2 Puffs by mouth in the morning and 2 Puffs before bedtime. 0 Active metFORMIN HCl 500 MG Oral Tablet (Glucophage) Take 1 Tablet by mouth daily with breakfast. 0 Active Rosuvastatin Calcium 40 MG Oral Tablet (Crestor) Take 1 Tablet by mouth in the morning. 0 Active Fenofibrate Micronized 43 MG Oral Capsule Take 43 mg by mouth in the morning. 0 Active Albuterol Sulfate HFA 108 (90 Base) MCG/ACT Inhalation Aerosol Solution Inhale 2 Puffs by mouth every 6 hours as needed for Dyspnea or Wheezing. 0 Active traMADol HCl 25 MG Oral Tablet Take 25 mg by mouth every 6 hours as needed for Pain, Severe or Pain, Moderate. 20 Tablet 0 01/13/2024 Active Lisinopril-hydroC HLOROthiazide 10-12.5 MG Oral Tablet Take 1 Tablet by mouth in the morning. 0 01/13/2024 Discontinued documented as of this encounter (statuses as of 01/14/2024) Active Problems Problem Noted Date Diagnosed Date Pleural effusion 01/13/2024 Mass of right lung 12/31/2023 Uncomplicated asthma 12/31/2023 Prediabetes 12/31/2023 HTN, goal below 130/80 12/31/2023 Stage 3b chronic kidney disease 12/31/2023 Dyslipidemia 12/31/2023 Lymph node enlargement 12/31/2023 Hemothorax on right 12/30/2023 documented as of this encounter (statuses as of 01/14/2024) Resolved Problems Problem Noted Date Diagnosed Date Resolved Date Acute hypoxic respiratory failure 12/31/2023 01/13/2024 documented as of this encounter (statuses as of 01/14/2024) Social History Tobacco Use Types Packs/Day Years Used Date Smoking Tobacco: Never Assessed Sex and Gender Information Value Date Recorded Sex Assigned at Not on file Gender Identity Not on file Sexual Orientation Not on file Job Start Date Occupation Industry Not on file Not on file Not on file documented as of this encounter Last Filed Vital Signs Vital Sign Reading Time Taken Comments Blood Pressure 125/52 01/13/2024 3:05 PM EST Pulse 101 01/13/2024 3:05 PM EST Temperature 36.4 C (97.5 F) 01/13/2024 3:05 PM ES T Respiratory Rate 18 01/13/2024 3:05 PM EST Oxygen Saturation 95% 01/13/2024 3:05 PM EST Inhaled Oxygen Concentration - - Weight 90.1 kg (198 lb 10.2 oz) 01/08/2024 8:00 AM EST Height 170.2 cm (5' 7") 12/31/2023 11:4 7 AM EST Body Mass Index 31.11 12/31/2023 11:47 AM EST documented in this encounter Functional Status Functional Status Response Date of Assess ment Are you deaf or do you have serious difficulty h earing? No 12/31/2023 Are you blind or do you have serious difficulty seeing, even when wearing glasses? No 12/31/2023 Do you have serious difficul ty walking or climbing stairs? (5 years old or older) No 12/31/2023 Do you have difficulty dress ing or bathing? (5 years old or older) No 12/31/2023 Because of a physical, menta l, or emotional condition, do you have difficulty doing errands alone such as visiting a doctor s office or shopping? (15 years old or older) No 12/31/19 Cognitive Status Response Date of Assessm ent Because of a physical, menta l, or emotional condition, do you have serious difficulty concentrating, remembering, or making decisions? (5 years old or older) No 12/31/2023 documented as of this encounter Discharge Instructions * Discharge Instr - AVS* Eneida Laughlin DO - 01/13/2024 3:45 PM EST Discharge Date: 01/13/2024 The information below provides you with the instructions and the list of medications you need to betaking following discharge from the hospital. If you have any questions, please ask before leaving. If you have questions after leaving, you can reach us at the numbers below. YOUR HOSPITAL PROVIDERS: Discharging Provider: Dr. Ward Resident Provider: Dr. Truman Ryder Provider Department: Hospital Medicine IF YOU HAVE QUESTIONS: - To reach this Provider Tuesday through Tuesday (8:00 AM to 4:30 PM) for any questions or test results: Call [phone] - For after-hours concerns: Call [phone] and have your provider paged, or the provider on callfor the Department of Hospital Medicine paged. - Please note, the discharging provider will not be able to provide you with any medications refills. Please discuss these with your primary care provider. FOR WORSENING SYMPTOMS: - If you have new symptoms, or your symptoms get worse, please contact your Discharge Provider or Primary Care Provider (PCP). If these providers are not available, you can go to your local [facility] during their business hours. - In an EMERGENCY situation: Call [phone] or go to the nearest emergency room. A BRIEF SUMMARY OF YOUR HOSPITAL STAY: You were admitted to [facility] for shortness of breath. While here you were found tohave extra fluid and blood in your lung (known as pleural effusions and hemothorax), which was causing the shortness of breath and low oxygen levels. A tube was placed to help drain this extra fluid,and after fluid was removed, the tube was taken out on . A scope to look inside your lung cavity, called a video-assisted thoracic surgery, was done and samples were taken to determine what is causing this extra fluid and blood. These biopsies did not show any abnormal findings. However, due tohigh concern for a malignant cause to your pleural effusions, a biopsy was done on , the biopsyresults are still pending. You will need to follow-up with your PCP to review these findings. Whilehere, you did require extra oxygen, and will need to continue on supplementary oxygen after leavingthe hospital. You should follow-up with your PCP. Thoracic surgery will reach out to you after yourbiopsy results to arrange an appointment. Your main diagnosis at discharge was: low oxygen levels due to fluid and blood in the lung (Pleuraleffusion, and hemothorax) Operations & Procedures performed: video-assisted thoracic surgery, and Percutaneous Biopsy Complications: none Inpatient test results that are pending at discharge: Biopsy Results Advance Directive Documented: Advance Directive Does the Patient have an Advance Directive? No YOUR FOLLOW UP APPOINTMENTS: Primary Care Provider Information: PCP: AILIN ZELAYA [address] [place] [address] [place] [address] [phone] An appointment was requested with your PCP, Dr. Zelaya. (Please take this form to this visit with your primary care physician.) You need the following studies in the future: CBC in three days (this is blood work) INSTRUCTIONS: Diet: Prior- no restrictions Activity: none Call your primary care physician or seek medical attention if you have fevers, chills, have chest pain, shortness of breath, non-stop vomiting or diarrhea, confusion, or fever. If you fee suicidal or homicidal, please call the crisis hotline at [phone] ([phone]). MEDICATION CHANGES START TAKING THE FOLLOWING MEDICINES: 1. Tramadol (this is a pain medication) - Take 25 mg, As needed for pain up to every 6 hours STOP TAKING THE FOLLOWING MEDICINES: 1. Lisinopril-hydrochlorothiazide (this is a blood pressure medication) - It was discontinued because of lower blood pressures in the hospital CONTINUE TAKING ALL OTHER MEDICINES PRESCRIBED documented in this encounter Progress Notes * Zain Rowe DO - 01/12/2024 5:30 PM EST PROCEDURE NOTE - Interventional Radiology [address] [address] Name: Troy Walsh Location: RADIOLOGY WAITING ROOM/IR Date/Time: 01/12/2024 5:30 PM PROCEDURE: CT guided biopsy of right lung nodule. LIGHTOUT EXAMINER : Dr. Zain Rowe. SUPPLY CHAIN CONSULTANT : Dr. Malu Gupta ANESTHESIA: lidocaine COMPLICATIONS: Small pneumothorax . SPECIMEN: Cytology ESTIMATED BLOOD LOSS: negligible FINDINGS:Successful CT guided lung nodule biopsy. PLAN : - Pt to return to floor under care of primary service. - Post procedural small pneumothorax noted on CT. Follow up chest xray ordered for now and 2 hours from now for continued monitoring. Primary team and nurse were notified of these findings and expressed understanding. Thank you for allowing us to participate in the ongoing care of this patient. Please don't hesitateto call or page with any additional concerns. Zain Rowe D.O PGY 2 - Vascular and Interventional Radiology Associated attestation - Malu Gupta MD - 01/13/2024 7:51 AM EST A procedure was performed. I was present for entire procedure. I agree with the trainee note. * Romaine Tejada MD - 01/12/2024 6:18 AM EST Images from the original note were not included. PROGRESS NOTE - Resident - Medicine [facility] [address] Name: Troy Walsh Location: [facility] A569/B Date: 01/12/2024 Time: 6:18 AM Summary Statement: 68 YO F admitted with R lung mass concerning for malignancy with metastatic spread on imagine. Patient is now status post VATS for mediastinal biopsy. PMH significant for: asthma, prediabetes, dyslipidemia, and hypertension Overnight: No acute events overnight vitals are within normal limits denied nausea vomiting fever and chill pain discomfort around the chest tube. Patient was NPO after midnight awaiting procedure. PHYSICAL EXAMINATION: 24 Hour Vital Sign Ranges: Systolic BP: Most Recent Systolic BP Av.2 mmHg Min: 117 mmHg Max: 145 mmHg Temperature: Most Recent Temperature Av.8 C Min: 36 C Max: 37.39 C Pulse: Pulse Av Min: 88 Max: 107 Respirations: Resp Av.5 Min: 18 Max: 20 SpO2: SpO2 Av.3 % Min: 96 % Max: 100 % Most Recent Vital Signs: BP: 117 mmHg/55 mmHg (01/12/24250) Pulse: 88 (01/12/24250) Temp: 36.11 C (01/12/24250) Resp: 18 (01/12/24250) SpO2: 98 % (01/12/24250) No intake or output data in the 24 hours ending 01/12/24 0618 General Exam: General: Not in acute distress Head and face: Atraumatic Respiratory: Nonlabored breathing decreased breath sounds on the right Cardiovascular: Regular rate and rhythm Peripheral vascular: cap refill <2 seconds, no LE edema, Radial 2/4 Psychiatric: normal judgement and insight, normal mood and normal affect Extremities: Moving all extremities spontaneously Mental status: Alert, oriented to person, place, and time LABS/STUDIES: Reviewed EMR Assessment and Plan IMPRESSION : Principal Problem: Mass of right lung Active Problems: Acute hypoxic respiratory failure (HCC) Uncomplicated asthma Prediabetes HTN, goal below 130/80 Stage 3b chronic kidney disease (HCC) Dyslipidemia Lymph node enlargement Hemothorax on right Resolved Problems: * No resolved hospital problems. * Assessment & Plan: 68 YO F admitted with R lung mass concerning for malignancy with metastatic spread on imagine. Patient is now status post VATS for mediastinal biopsy. PMH significant for: asthma, prediabetes, dyslipidemia, and hypertension. Assessment and plan by problem as follows: 1) R lung mass Concern for metastatic malignancy Asthma Condition is stable. Chest tubes in place and draining slowed down. Lung tissue biopsy by thoracic surgery has been per night. Thoracic surgery recommended IR for further biopsy with high suspicion for malignancy. Chest tube management per thoracic surgery. Appreciate assistance with this case Patient was unable to tolerate transvaginal ultrasound, there was concern on prior imaging at OSH of abnormal ovarian enlargement. Will likely get MRI this admission, pending path and cyto results Fluticasone inhaler Albuterol PRN Wean O2 as tolerated IR biopsy on 2) MANSOOR Condition is stable. Venofer 01/05/2024-01/08/2024 MISC Peripheral Line Lower;Right 22 Gauge (Active) Number of days: 12 Chest Tube Right;Lower;Lateral Chest (Active) Number of days: 8 Chest Tube Right;Lower;Lateral Chest (Active) Number of days: 8 -Diet: Orders Placed This Encounter Procedures NPO After 2400 Except Meds NPO After 2400 Except Meds NPO After 2400 Except Meds NPO After 2400 Except Meds NPO After 2400 Except Meds NPO Except Meds -Bowel Regimen: senna , miralax; Last Bowel Movement: 01/12/24 (01/12/24 0200) -Disposition: Med-Surg; inpt until medically stable for discharge PHARMACOLOGIC VTE PROPHYLAXIS: hEParin CODE STATUS: Full Code EXPECTED DISCHARGE DATE: No information available Associated attestation - Tavia Ward MD - 01/12/2024 9:31 PM EST I saw and evaluated the patient today. I have reviewed the trainee note and agree. Right sided chest tube removed today before IR procedure for lung nodule biopsy Patient had no concerns when I saw her, she was playing cards with her family Monitor overnight after lung biopsy * Romaine Tejada MD - 01/11/2024 6:23 AM EST Images from the original note were not included. PROGRESS NOTE - Resident - Medicine [facility] [address] Name: Troy Walsh Location: [facility] A569/B Date: 01/11/2024 Time: 6:23 AM Summary Statement: 68 YO F admitted with R lung mass concerning for malignancy with metastatic spread on imagine. Patient is now status post VATS for mediastinal biopsy. PMH significant for: asthma, prediabetes, dyslipidemia, and hypertension Overnight: RVP negative. No acute events overnight denied nausea vomiting fever and chill denied chest pain shortness of. Patient complain discomfort around the chest tube. Chest tube connected to -20 suction PHYSICAL EXAMINATION: 24 Hour Vital Sign Ranges: Systolic BP: Most Recent Systolic BP Av.9 mmHg Min: 90 mmHg Max: 134 mmHg Temperature: Most Recent Temperature Av.1 C Min: 36.72 C Max: 37.61 C Pulse: Pulse Av.1 Min: 84 Max: 103 Respirations: Resp Av.9 Min: 18 Max: 20 SpO2: SpO2 Av.6 % Min: 93 % Max: 99 % Most Recent Vital Signs: BP: 132 mmHg/62 mmHg (01/11/24604) Pulse: 85 (01/11/24604) Temp: 37.22 C (01/11/24604) Resp: 18 (01/11/24604) SpO2: 94 % (01/11/24604) Intake/Output Summary (Last 24 hours) at 01/11/2024 0623 Last data filed at 01/11/2024 0600 Gross per 24 hour Intake 180 ml Output 0 ml Net 180 ml General Exam: General: Not in acute distress Head and face: Atraumatic Respiratory: Nonlabored breathing decreased breath sounds on the right Cardiovascular: RRR Peripheral vascular: cap refill <2 seconds, no LE edema, Radial 2/4 Psychiatric: normal judgement and insight, normal mood and normal affect Extremities: Moving all extremities spontaneously Mental status: Alert, oriented to person, place, and time LABS/STUDIES: Reviewed EMR Assessment and Plan IMPRESSION : Principal Problem: Mass of right lung Active Problems: Acute hypoxic respiratory failure (HCC) Uncomplicated asthma Prediabetes HTN, goal below 130/80 Stage 3b chronic kidney disease (HCC) Dyslipidemia Lymph node enlargement Hemothorax on right Resolved Problems: * No resolved hospital problems. * Assessment & Plan: 68 YO F admitted with R lung mass concerning for malignancy with metastatic spread on imagine. Patient is now status post VATS for mediastinal biopsy. PMH significant for: asthma, prediabetes, dyslipidemia, and hypertension. Assessment and plan by problem as follows: 1) R lung mass Concern for metastatic malignancy Asthma Condition is stable. Chest tubes in place and draining slowed down. Lung tissue biopsy by thoracic surgery has been per night. Thoracic surgery recommended IR for further biopsy with high suspicion for malignancy. Chest tube management per thoracic surgery. Appreciate assistance with this case Patient was unable to tolerate transvaginal ultrasound, there was concern on prior imaging at OSH of abnormal ovarian enlargement. Will likely get MRI this admission, pending path and cyto results Fluticasone inhaler Albuterol PRN Wean O2 as tolerated IR consulted for biopsy per thoracic surgery request 2) MANSOOR Condition is stable. Venofer 01/05/2024-01/08/2024 MISC Peripheral Line Lower;Right 22 Gauge (Active) Number of days: 11 Chest Tube Right;Lower;Lateral Chest (Active) Number of days: 7 Chest Tube Right;Lower;Lateral Chest (Active) Number of days: 7 -Diet: Orders Placed This Encounter Procedures NPO After 2400 Except Meds NPO After 2400 Except Meds Regular Diet -Bowel Regimen: senna , miralax; Last Bowel Movement: 01/10/24 (01/11/24 0056) -Disposition: Med-Surg; inpt until medically stable for discharge PHARMACOLOGIC VTE PROPHYLAXIS: hEParin CODE STATUS: Full Code EXPECTED DISCHARGE DATE: No information available Associated attestation - Tavia Ward MD - 01/11/2024 6:56 PM EST I saw and evaluated the patient today. I have reviewed the trainee note and agree. Disappointed she was fasting all day and lung biopsy not completed Worried about exposure to a roommate with RSV(respiratory viral panel today is negative) Has a right sided chest tube with bloody drainage Labs reviewed CT chest today -reveals Large hemorrhagic mass at the right lung base , multiple pulmonary nodules Principal Problem: Mass of right lung (POA: Yes) Active Problems: Acute hypoxic respiratory failure (HCC) (POA: Yes) Uncomplicated asthma (POA: Yes) Prediabetes (POA: Yes) HTN, goal below 130/80 (POA: Yes) Stage 3b chronic kidney disease (HCC) (POA: Yes) Dyslipidemia (POA: Yes) Lymph node enlargement (POA: Yes) Hemothorax on right (POA: Unknown) POA = Present On Admission Plan Continue chest tube Lung biopsy possibly tomorrow NPO after midnight * Romaine Tejada MD - 01/10/2024 6:41 AM EST Images from the original note were not included. PROGRESS NOTE - Resident - Medicine [facility] [address] Name: Troy Walsh Location: [facility] A569/B Date: 01/10/2024 Time: 6:41 AM Summary Statement: 68 YO F admitted with R lung mass concerning for malignancy with metastatic spread on imagine. Patient is now status post VATS for mediastinal biopsy. PMH significant for: asthma, prediabetes, dyslipidemia, and hypertension Overnight: Acute events overnight complained of comfort around the chest tube. Denied chest pain nausea vomiting fever and chills denies shortness of breath chest pain. PHYSICAL EXAMINATION: 24 Hour Vital Sign Ranges: Systolic BP: Most Recent Systolic BP Av mmHg Min: 115 mmHg Max: 144 mmHg Temperature: Most Recent Temperature Av C Min: 36.72 C Max: 37.39 C Pulse: Pulse Av Min: 87 Max: 109 Respirations: Resp Av.7 Min: 18 Max: 20 SpO2: SpO2 Av.2 % Min: 96 % Max: 100 % Most Recent Vital Signs: BP: 140 mmHg/87 mmHg (01/10/24419) Pulse: 103 (01/10/24419) Temp: 37.22 C (01/10/24419) Resp: 18 (01/10/24419) SpO2: 98 % (01/10/24419) Intake/Output Summary (Last 24 hours) at 01/10/2024 0641 Last data filed at 01/10/2024 0400 Gross per 24 hour Intake 480 ml Output 140 ml Net 340 ml General Exam: General: Not in acute distress Head and face: Atraumatic Respiratory: Nonlabored breathing decreased breath sounds on the right Cardiovascular: Regular rate and rhythm Peripheral vascular: cap refill <2 seconds, no LE edema, Radial 2/4 Psychiatric: normal judgement and insight, normal mood and normal affect Extremities: Moving all extremities spontaneously Mental status: Alert, oriented to person, place, and time Language: expression / comprehension intact Speech: no dysarthria LABS/STUDIES: Reviewed EMR Assessment and Plan IMPRESSION : Principal Problem: Mass of right lung Active Problems: Acute hypoxic respiratory failure (HCC) Uncomplicated asthma Prediabetes HTN, goal below 130/80 Stage 3b chronic kidney disease (HCC) Dyslipidemia Lymph node enlargement Hemothorax on right Resolved Problems: * No resolved hospital problems. * Assessment & Plan: 68 YO F admitted with R lung mass concerning for malignancy with metastatic spread on imagine. Patient is now status post VATS for mediastinal biopsy. PMH significant for: asthma, prediabetes, dyslipidemia, and hypertension. Assessment and plan by problem as follows: 1) R lung mass Concern for metastatic malignancy Asthma Condition is stable. Chest tubes in place and still draining blood. Chest tube management per thoracic surgery. Appreciate assistance with this case Awaiting final surgical pathology and cytology May ultimately need additional tissue biopsy, decision pending the above results Patient was unable to tolerate transvaginal ultrasound, there was concern on prior imaging at OSH of abnormal ovarian enlargement. Will likely get MRI this admission, pending path and cyto results Fluticasone inhaler Albuterol PRN Wean O2 as tolerated 2) MANSOOR Condition is stable. Venofer 01/05/2024-01/08/2024 MISC Peripheral Line Lower;Right 22 Gauge (Active) Number of days: 10 Chest Tube Right;Lower;Lateral Chest (Active) Number of days: 6 Chest Tube Right;Lower;Lateral Chest (Active) Number of days: 6 -Diet: Orders Placed This Encounter Procedures NPO After 2400 Except Meds NPO After 2400 Except Meds Regular Diet -Bowel Regimen: senna , miralax; Last Bowel Movement: 01/10/24 (01/10/24 0400) -Disposition: Med-Surg; inpt until medically stable for discharge PHARMACOLOGIC VTE PROPHYLAXIS: hEParin CODE STATUS: Full Code EXPECTED DISCHARGE DATE: No information available Associated attestation - Susan Franks MD - 01/10/2024 5:56 PM EST I saw and evaluated the patient today. I have reviewed the trainee note and agree. Pathology results found to be benign. IR will review case tomorrow and see if they are able to pursue biopsy of one of the nodules. * Romaine Tejada MD - 01/09/2024 6:52 AM EST Images from the original note were not included. PROGRESS NOTE - Resident - Medicine [facility] [address] Name: Troy Walsh Location: [facility] A569/B Date: 01/09/2024 Time: 6:52 AM Summary Statement: 68 YO F admitted with R lung mass concerning for malignancy with metastatic spread on imagine. Patient is now status post VATS for mediastinal biopsy. PMH significant for: asthma, prediabetes, dyslipidemia, and hypertension Overnight: No acute events overnight. Complain of mild discomfort around chest tube. Denied nausea vomiting fever and chill chest pain shortness of breath. Vitals are within normal limits. PHYSICAL EXAMINATION: 24 Hour Vital Sign Ranges: Systolic BP: Most Recent Systolic BP Av.8 mmHg Min: 110 mmHg Max: 138 mmHg Temperature: Most Recent Temperature Av.9 C Min: 36.61 C Max: 37.39 C Pulse: Pulse Av.8 Min: 88 Max: 102 Respirations: Resp Av Min: 18 Max: 18 SpO2: SpO2 Av.8 % Min: 97 % Max: 100 % Most Recent Vital Signs: BP: 128 mmHg/52 mmHg (01/09/24258) Pulse: 91 (01/09/24258) Temp: 36.61 C (01/09/24258) Resp: 18 (01/09/24258) SpO2: 100 % (01/09/24258) Intake/Output Summary (Last 24 hours) at 01/09/2024 06 Last data filed at 01/09/2024 0600 Gross per 24 hour Intake 120 ml Output 150 ml Net -30 ml General Exam: General: Not in acute distress alert Head and face: atraumatic Respiratory: Non-labored breathing, decreased breath sounds on R Cardiovascular: RRR Peripheral vascular: cap refill <2 seconds, no LE edema, Radial 2/4 Psychiatric: normal judgement and insight, normal mood and normal affect Extremities: Moving 4 extremities spontaneously Mental status: Alert, oriented to person, place, and time Language: expression / comprehension intact Speech: no dysarthria LABS/STUDIES: Reviewed EMR Assessment and Plan IMPRESSION : Principal Problem: Mass of right lung Active Problems: Acute hypoxic respiratory failure (HCC) Uncomplicated asthma Prediabetes HTN, goal below 130/80 Stage 3b chronic kidney disease (HCC) Dyslipidemia Lymph node enlargement Hemothorax on right Resolved Problems: * No resolved hospital problems. * Assessment & Plan: 68 YO F admitted with R lung mass concerning for malignancy with metastatic spread on imagine. Patient is now status post VATS for mediastinal biopsy. PMH significant for: asthma, prediabetes, dyslipidemia, and hypertension. Assessment and plan by problem as follows: 1) R lung mass Concern for metastatic malignancy Asthma Condition is stable. Chest tubes in place and still draining blood. Chest tube management per thoracic surgery. Appreciate assistance with this case Awaiting final surgical pathology and cytology May ultimately need additional tissue biopsy, decision pending the above results Patient was unable to tolerate transvaginal ultrasound, there was concern on prior imaging at OSH of abnormal ovarian enlargement. Will likely get MRI this admission, pending path and cyto results Remove oxygen unless SpO2 <93% Fluticasone inhaler Albuterol PRN 2) MANSOOR Condition is stable. Venofer 01/05/2024-01/08/2024 MISC Peripheral Line Lower;Right 22 Gauge (Active) Number of days: 9 Chest Tube Right;Lower;Lateral Chest (Active) Number of days: 5 Chest Tube Right;Lower;Lateral Chest (Active) Number of days: 5 -Diet: Orders Placed This Encounter Procedures NPO After 2400 Except Meds NPO After 2400 Except Meds Regular Diet -Bowel Regimen: senna , miralax; Last Bowel Movement: 01/08/24 (01/08/24 2250) -Disposition: Med-Surg; inpt until medically stable for discharge PHARMACOLOGIC VTE PROPHYLAXIS: hEParin CODE STATUS: Full Code EXPECTED DISCHARGE DATE: No information available Associated attestation - Susan Franks MD - 01/09/2024 3:52 PM EST I saw and evaluated the patient today. I have reviewed the trainee note and agree. I spent a total of 50 minutes coordinating, documenting, and providing care for this patient excluding time spent in the performance of separately billed services. I discussed the preliminary pathology findings with the patient and her sister at bedside. I also reached out to her other sister over the phone and updated her with the current medical plan per patient request. They are aware that the pathology results are still not yet conclusive. Currently awaiting repeat stains which should be back tomorrow. Pending on these findings, will determine what the next steps are for her management. * Jose Palacios, - 01/08/2024 8:40 AM EST Images from the original note were not included. PROGRESS NOTE - Resident - Medicine [facility] [place]-[address] [id number] Name: Troy Walsh Location: [facility] A569/B Date: 01/08/2024 Time: 8:41 AM Summary Statement: 68 YO F admitted with R lung mass concerning for malignancy with metastatic spread on imagine. Patient is now status post VATS for mediastinal biopsy. PMH significant for: asthma, prediabetes, dyslipidemia, and hypertension Overnight: No acute events INTERVAL HISTORY AND SUBJECTIVE: Complaints other than mild discomfort at site of chest tube PHYSICAL EXAMINATION: 24 Hour Vital Sign Ranges: Systolic BP: Most Recent Systolic BP Av.3 mmHg Min: 112 mmHg Max: 137 mmHg Temperature: Most Recent Temperature Av C Min: 36.56 C Max: 37.61 C Pulse: Pulse Av.7 Min: 87 Max: 102 Respirations: Resp Av.7 Min: 16 Max: 20 SpO2: SpO2 Av.6 % Min: 95 % Max: 99 % Most Recent Vital Signs: BP: 119 mmHg/47 mmHg (01/08/24800) Pulse: 91 (01/08/24800) Temp: 36.72 C (01/08/24800) Resp: 18 (01/08/24800) SpO2: 98 % (01/08/24800) Intake/Output Summary (Last 24 hours) at 01/08/2024 0841 Last data filed at 01/08/2024 0700 Gross per 24 hour Intake 109.84 ml Output 140 ml Net -30.16 ml General Exam: General: NAD resting comfortably, awake and alert Head and face: atraumatic, normocephalic Eyes: normal lids, nonicteric sclera, no conjunctival injection Respiratory: Non-labored breathing, decreased breath sounds on R Cardiovascular: regular rate and rhythm, S1 and S2 appreciated, no r/g/m Peripheral vascular: cap refill <2 seconds, no LE edema, Radial 2/4 Psychiatric: normal judgement and insight, normal mood and normal affect Mental status: Alert, oriented to person, place, and time Language: expression / comprehension intact Speech: no dysarthria LABS/STUDIES: Reviewed EMR Assessment and Plan IMPRESSION : Principal Problem: Mass of right lung Active Problems: Acute hypoxic respiratory failure (HCC) Uncomplicated asthma Prediabetes HTN, goal below 130/80 Stage 3b chronic kidney disease (HCC) Dyslipidemia Lymph node enlargement Hemothorax on right Resolved Problems: * No resolved hospital problems. * Assessment & Plan: 68 YO F admitted with R lung mass concerning for malignancy with metastatic spread on imagine. Patient is now status post VATS for mediastinal biopsy. PMH significant for: asthma, prediabetes, dyslipidemia, and hypertension. Assessment and plan by problem as follows: 1) R lung mass Concern for metastatic malignancy Asthma Condition is stable. Chest tubes in place and still draining blood. Chest tube management per thoracic surgery. Appreciate assistance with this case Awaiting final surgical pathology and cytology May ultimately need additional tissue biopsy, decision pending the above results Patient was unable to tolerate transvaginal ultrasound, there was concern on prior imaging at OSH of abnormal ovarian enlargement. Will likely get MRI this admission, pending path and cyto results Remove oxygen unless SpO2 <93% Fluticasone inhaler Albuterol PRN 2) MANSOOR Condition is stable. Venofer 01/05/2024-01/08/2024 MISC Peripheral Line Lower;Right 22 Gauge (Active) Number of days: 8 Chest Tube Right;Lower;Lateral Chest (Active) Number of days: 4 Chest Tube Right;Lower;Lateral Chest (Active) Number of days: 4 -Diet: Orders Placed This Encounter Procedures NPO After 2400 Except Meds NPO After 2400 Except Meds Regular Diet -Bowel Regimen: senna , miralax; Last Bowel Movement: 01/03/24 (01/03/24 0800) -Disposition: Med-Surg; inpt until medically stable for discharge PHARMACOLOGIC VTE PROPHYLAXIS: hEParin CODE STATUS: Full Code EXPECTED DISCHARGE DATE: No information available Patient was discussed with attending physician Dr. Franks. Associated attestation - Susan Franks MD - 01/09/2024 6:33 AM EST I saw and evaluated the patient 01/08/24. I have reviewed the trainee note and agree. 68 year old woman admitted for suspected metastatic cancer with R lung mass and effusion. She was worked up at [facility] with IR and EBUS biopsy which were nondiagnostic. She underwent VATS for drainage of R-sided effusion, washout to prevent fibrothorax development, and tissue sampling for diagnosis on01/04/24. Biopsy results from these are pending. Will touch base with pathology on Tuesday to see if these results look adequate. If not, then will need to discuss with IR about CT-guided biopsy of R lung nodule. * Romaine Tejada MD - 01/07/2024 6:38 AM EST PROGRESS NOTE - RESIDENT - HOSPITAL MEDICINE [facility]-[address] [address] Name: Troy Walsh Location: [facility] A569/B Date: 01/07/2024 Time: 8:32 AM Date of admission: 12/31/2023 Hospital length of stay: 7 days Subjective Interval History: No acute events overnight. Vitals are within normal limits. Patient is saturating well on 2 L. Tolerated diet. Patient serosanguineous output chest tubes. Objective CONSTITUTIONAL DATA / OBJECTIVE: Vital Signs (Most Recent): Blood Pressure: 124/47 mmHg Pulse: 91 Temperature: 36.7 C (98.1 F) Respiratory Rate: 20 O2 Saturation: 97 % Physical Examination: General: Not in acute distress anxious HEENT: Atraumatic Heart: RRR Pulmonary: Clear bilateral Abdomen: Soft nondistended nontender hearing MSK: No gross deformity Extremities: No pitting edema present at lower extremity bilaterally Skin: Moville, warm, no wounds or lesions present. Neuro: AAOx3. No gross motor or sensory deficits. Psych: Appropriate mood and insight anxious Peripheral Line Lower;Right 22 Gauge (Active) Number of days: 7 Peripheral Line Right Wrist 18 Gauge (Active) Number of days: 3 Chest Tube Right;Lower;Lateral Chest (Active) Number of days: 3 Chest Tube Right;Lower;Lateral Chest (Active) Number of days: 3 Laboratory Values: reviewed. Radiographic Studies: reviewed. Assessment & Plan Assessment and Plan: Principal Problem: Mass of right lung (POA: Yes) Active Problems: Acute hypoxic respiratory failure (HCC) (POA: Yes) Uncomplicated asthma (POA: Yes) Prediabetes (POA: Yes) HTN, goal below 130/80 (POA: Yes) Stage 3b chronic kidney disease (HCC) (POA: Yes) Dyslipidemia (POA: Yes) Lymph node enlargement (POA: Yes) Hemothorax on right (POA: Unknown) POA = Present On Admission 68-year-old female transferred from [facility] due to concern for undiagnosed malignancy multiple lung nodules, right pleural mass, and abnormal lymph nodes in the abdomen and possiblepathologic ovarian enlargement. Sent to [facility] because residential coordinator at [facility] believed patient should have a VATS, awaiting biopsy result. Pt is now s/p VATS on 01/04/24 Undiagnosed metastatic malignancy Multiple lung nodules Awaiting biopsy results. S/p VATS 01/04/24. CXR AM and chest tube to negative suction to monitor pneumothorax. Thoracic Surgery following, appreciate recs Restart abx if febrile OSH Bcx were negative >48 hrs Continue COST CLERK fluticasone MDI twice daily Continue COST CLERK albuterol MDI p.r.n. Nominate OSH radiology reports for IOF F/u OSH EBUS biopsy pathology reports Will c/s Oncology once pathology reports available Wean O2 to goal SpO2 > 92% Contacted [facility] to obtain biopsy results, awaiting biopsy result from [facility] Per thoracic sx: - OR 01/04, VATS, exploration , washout, biopsies - Chest tubes in place managed by thoracic sx - Schedule tramadol 25 for moderate and 50 for severe pain - Schedule tylenol Q8h - Chest tube sx placed to -40, worsening pneumothorax - follow up surgical pathology - would recommend IR CT guided right lung nodule biopsy if pathology is benign - restart dvt ppx Acute anemia Hgb 7.9 from 7.6 Transfusion if needed CBC Cw Venofer for total 5 doses (end 01/08) 2) STEWART on CKD3b - resolved Pt's creatinine on admission is 1.5 which is what her baseline is documented as upon review of outside records. STEWART that was noted at OSH appears to have resolved Chronic Conditions: HTN: Holding COST CLERK lisinopril 10-HCTZ 12.5. Will restart if blood pressure is consistently >150/>90 in the IP setting Dyslipidemia: Continue COST CLERK rosuvastatin 40, holding COST CLERK fenofibrate Prediabetes: Holding COST CLERK metformin MISC Peripheral Line Lower;Right 22 Gauge (Active) Number of days: 7 Peripheral Line Right Wrist 18 Gauge (Active) Number of days: 3 Chest Tube Right;Lower;Lateral Chest (Active) Number of days: 3 Chest Tube Right;Lower;Lateral Chest (Active) Number of days: 3 Misc: Diet: Orders Placed This Encounter Procedures NPO After 2400 Except Meds NPO After 2400 Except Meds Regular Diet VTE Prophylaxis: hEParin Code Status: Full Code Anticipated Discharge: +2 days Patient was discussed with attending physician, Susan Franks MD This chart was completed in part utilizing [employer] Speech Voice Recognition Software. Grammatical errors, random word insertions, pronoun errors, and incomplete sentences are an occasional consequence of this system due to software limitations, ambient noise, and hardware issues. Any formal questions or concerns about the content, text, or information contained within the body of this dictation should be directly addressed to the provider for clarification. Associated attestation - Susan Franks MD - 01/07/2024 3:36 PM EST I saw and evaluated the patient today. I have reviewed the trainee note and agree. 68 year old woman admitted for suspected metastatic cancer with R lung mass and effusion. She was worked up at [facility] with IR and EBUS biopsy which were nondiagnostic. She underwent VATS for drainage of R-sided effusion, washout to prevent fibrothorax development, and tissue sampling for diagnosis on01/04/24. Biopsy results from these are pending. Will touch base with pathology on Tuesday to see if these results look adequate. If not, then will need to discuss with IR about CT-guided biopsy of R lung nodule. Patient is doing well, just complaining of being tired. Her chest tubes are still intact with no evidence of an air leak. Sister at bedside enough dated her and patient with medical plan. * Romaine Tejada MD - 01/06/2024 6:28 AM EST PROGRESS NOTE - RESIDENT - HOSPITAL MEDICINE [facility] [address] Name: Troy Walsh Location: [facility] A569/B Date: 01/06/2024 Time: 6:28 AM Date of admission: 12/31/2023 Hospital length of stay: 6 days Subjective Interval History: Vitals are within normal limits patient chest rating well on 2 L. early in the morning patient complain chest neck pain and pain of rales tubes. EKG was done unchanged from. Patient is given Tylenol and the pains improved. Per thoracic sx, chest tube hooked back up to suction. given her small pneumothorax this morning (one of the PAs put her to water seal yesterday) Objective CONSTITUTIONAL DATA / OBJECTIVE: Vital Signs (Most Recent): Blood Pressure: 123/47 mmHg Pulse: 84 Temperature: 36.6 C (97.9 F) Respiratory Rate: 18 O2 Saturation: 95 % Physical Examination: General: Not in acute distress anxious HEENT: Atraumatic normocephalic Heart: Regular rate and rhythm Pulmonary: Clear bilateral Abdomen: Soft nondistended nontender no guarding or rebound MSK: No gross deformity Extremities: No pitting edema present at lower extremity bilaterally Skin: Moville, warm, no wounds or lesions present. Neuro: AAOx3. No gross motor or sensory deficits. Psych: Appropriate mood insight Peripheral Line Lower;Right 22 Gauge (Active) Number of days: 6 Peripheral Line Right Wrist 18 Gauge (Active) Number of days: 2 Chest Tube Right;Lower;Lateral Chest (Active) Number of days: 2 Chest Tube Right;Lower;Lateral Chest (Active) Number of days: 2 Laboratory Values: reviewed. Radiographic Studies: reviewed. Assessment & Plan Assessment and Plan: Principal Problem: Mass of right lung (POA: Yes) Active Problems: Acute hypoxic respiratory failure (HCC) (POA: Yes) Uncomplicated asthma (POA: Yes) Prediabetes (POA: Yes) HTN, goal below 130/80 (POA: Yes) Stage 3b chronic kidney disease (HCC) (POA: Yes) Dyslipidemia (POA: Yes) Lymph node enlargement (POA: Yes) Hemothorax on right (POA: Unknown) POA = Present On Admission 68-year-old female transferred from [facility] due to concern for undiagnosed malignancy multiple lung nodules, right pleural mass, and abnormal lymph nodes in the abdomen and possiblepathologic ovarian enlargement. Sent to [facility] because residential coordinator at [facility] believed patient should have a VATS, awaiting biopsy result. Pt is now s/p VATS on 01/04/24 Undiagnosed metastatic malignancy Multiple lung nodules Pt has multiple lung nodules, right pleural mass, and abnormal lymph nodes in the abdomen and possible pathologic ovarian enlargement. Patient has unintentional 10 lb weight loss. Increased dyspnea on exertion and fatigue for weeks to months preceding this admission. Patient had bronchoscopy with EBU S biopsies of vascular R hilar mass performed at OSH prior to transfer, pathology reports pending. IR guided Bx of R pleural mass and thoracocentesis was nondiagnostic and returned only what appeared to be old blood/clot. Staging CTs and MRI of the brain were performed as discussed in HPI. Outside films have been nominated to PACS. Patient was transferred here in the context of pursuing VATS lung biopsy given that IR guided biopsy only returned what appeared to be old clot. It is unclear why they did not wait for EBUS Bx pathology reports before jumping to recommendation of VATS aside from OSH Mechanical Oxidizer documenting, "given the significant fibrosis and loculation, slowly oozing right hilar mass. I think patient will benefit from VATS." Patient was breathing quite comfortably on 2 L of oxygen with saturation well above 90%, no documented hypoxia at outside hospital. There was concern for pneumonia and UTI for which Pt received ceftriaxone azithromycin but there is no convincing evidence to suggest that this is an acute infectious process so we will not be continuing antibiotics. Awaiting biopsy results. S/p VATS 01/04/24 Thoracic Surgery following, appreciate recs Restart abx if febrile OSH Bcx were negative >48 hrs Continue COST CLERK fluticasone MDI twice daily Continue COST CLERK albuterol MDI p.r.n. Nominate OSH radiology reports for IOF F/u OSH EBUS biopsy pathology reports Will c/s Oncology once pathology reports available Wean O2 to goal SpO2 > 92% Contacted [facility] to obtain biopsy results, awaiting biopsy result from [facility] Per thoracic sx: - OR 01/04, VATS, exploration , washout, biopsies - Chest tubes in place managed by thoracic sx - Schedule tramadol 25 for moderate and 50 for severe pain - Schedule tylenol Q8h - Chest tube sx placed to -40, worsening pneumothorax - follow up surgical pathology - would recommend IR CT guided right lung nodule biopsy if pathology is benign Acute anemia Hgb 7.6 from 8.3 Transfusion if needed CBC Cw Venofer for total 5 doses (end 01/08) 2) STEWART on CKD3b - resolved Pt's creatinine on admission is 1.5 which is what her baseline is documented as upon review of outside records. STEWART that was noted at OSH appears to have resolved Chronic Conditions: HTN: Holding COST CLERK lisinopril 10-HCTZ 12.5. Will restart if blood pressure is consistently >150/>90 in the IP setting Dyslipidemia: Continue COST CLERK rosuvastatin 40, holding COST CLERK fenofibrate Prediabetes: Holding COST CLERK metformin MISC Peripheral Line Lower;Right 22 Gauge (Active) Number of days: 6 Peripheral Line Right Wrist 18 Gauge (Active) Number of days: 2 Chest Tube Right;Lower;Lateral Chest (Active) Number of days: 2 Chest Tube Right;Lower;Lateral Chest (Active) Number of days: 2 Misc: Diet: Orders Placed This Encounter Procedures NPO After 2400 Except Meds NPO After 2400 Except Meds Regular Diet VTE Prophylaxis: This patient does not have an active medication from one of the medication groupers. Code Status: Full Code Anticipated Discharge: +2 days Patient was discussed with attending physician, Susan Franks MD This chart was completed in part utilizing [employer] Speech Voice Recognition Software. Grammatical errors, random word insertions, pronoun errors, and incomplete sentences are an occasional consequence of this system due to software limitations, ambient noise, and hardware issues. Any formal questions or concerns about the content, text, or information contained within the body of this dictation should be directly addressed to the provider for clarification. Associated attestation - Susan Franks MD - 01/06/2024 6:28 PM EST I saw and evaluated the patient today. I have reviewed the trainee note and agree. 68 year old woman admitted for suspected metastatic cancer with R lung mass and effusion. She was worked up at [facility] with IR and EBUS biopsy which were nondiagnostic. She underwent VATS for drainage of R-sided effusion, washout to prevent fibrothorax development, and tissue sampling for diagnosis on01/04/24. Biopsy results from these are pending. She is afebrile, HDS, and saturating well on 2L NC. She has 2 x chest tube on R side intact. Atriumwithout air leak. Suspected metastatic malignancy - Follow surgical pathology results from biopsy obtained by VATS on01/04/24. Once tissue diagnosis made, can involve appropriate oncology team. R pleural effusion s/p chest tube placement - Thoracic surgery managing chest tube. * Romaine Tejada MD - 01/05/2024 6:49 AM EST PROGRESS NOTE - RESIDENT - HOSPITAL MEDICINE [facility] [id number] Name: Troy Walsh Location: [facility] A569/B Date: 01/05/2024 Time: 6:49 AM Date of admission: 12/31/2023 Hospital length of stay: 5 days Subjective Interval History: No acute events vitals are within normal limits patient is saturating well on 2 L 93% and above. Pending a.m. chest x-ray. Chest tubes on negative suction with output of 110 mL overnight. Objective CONSTITUTIONAL DATA / OBJECTIVE: Vital Signs (Most Recent): Blood Pressure: 137/53 mmHg Pulse: 85 Temperature: 36.3 C (97.3 F) Respiratory Rate: 18 O2 Saturation: 94 % Physical Examination: General: in no acute distress HEENT: Atraumatic normocephalic Heart: Regular rate and rhythm Pulmonary: Clear bilateral Abdomen: Soft nondistended nontender no guarding or rebound tenderness MSK: No gross deformity Extremities: No pitting edema present at lower extremity bilaterally Skin: Moville, warm, no wounds or lesions present. Neuro: AAOx3. No gross motor or sensory deficits. Psych: Appropriate mood insight Peripheral Line Lower;Right 22 Gauge (Active) Number of days: 5 Peripheral Line Right Wrist 18 Gauge (Active) Number of days: 1 Chest Tube Right;Lower;Lateral Chest (Active) Number of days: 1 Chest Tube Right;Lower;Lateral Chest (Active) Number of days: 1 Laboratory Values: reviewed. Radiographic Studies: reviewed. Assessment & Plan Assessment and Plan: Principal Problem: Mass of right lung (POA: Yes) Active Problems: Acute hypoxic respiratory failure (HCC) (POA: Yes) Uncomplicated asthma (POA: Yes) Prediabetes (POA: Yes) HTN, goal below 130/80 (POA: Yes) Stage 3b chronic kidney disease (HCC) (POA: Yes) Dyslipidemia (POA: Yes) Lymph node enlargement (POA: Yes) Hemothorax on right (POA: Unknown) POA = Present On Admission 68-year-old female transferred from [facility] due to concern for undiagnosed malignancy multiple lung nodules, right pleural mass, and abnormal lymph nodes in the abdomen and possiblepathologic ovarian enlargement. Sent to [facility] because residential coordinator at [facility] believed patient should have a VATS, awaiting biopsy result. Pt is now s/p VATS on 2/21/24 Undiagnosed metastatic malignancy Multiple lung nodules Pt has multiple lung nodules, right pleural mass, and abnormal lymph nodes in the abdomen and possible pathologic ovarian enlargement. Patient has unintentional 10 lb weight loss. Increased dyspnea on exertion and fatigue for weeks to months preceding this admission. Patient had bronchoscopy with EBU S biopsies of vascular R hilar mass performed at OSH prior to transfer, pathology reports pending. IR guided Bx of R pleural mass and thoracocentesis was nondiagnostic and returned only what appeared to be old blood/clot. Staging CTs and MRI of the brain were performed as discussed in HPI. Outside films have been nominated to PACS. Patient was transferred here in the context of pursuing VATS lung biopsy given that IR guided biopsy only returned what appeared to be old clot. It is unclear why they did not wait for EBUS Bx pathology reports before jumping to recommendation of VATS aside from OSH Mechanical Oxidizer documenting, "given the significant fibrosis and loculation, slowly oozing right hilar mass. I think patient will benefit from VATS." Patient was breathing quite comfortably on 2 L of oxygen with saturation well above 90%, no documented hypoxia at outside hospital. There was concern for pneumonia and UTI for which Pt received ceftriaxone azithromycin but there is no convincing evidence to suggest that this is an acute infectious process so we will not be continuing antibiotics. Awaiting biopsy results. S/p VATS 01/04/24 Thoracic Surgery following, appreciate recs Restart abx if febrile OSH Bcx were negative >48 hrs Continue COST CLERK fluticasone MDI twice daily Continue COST CLERK albuterol MDI p.r.n. Nominate OSH radiology reports for IOF F/u OSH EBUS biopsy pathology reports Will c/s Oncology once pathology reports available Wean O2 to goal SpO2 > 92% Contacted [facility] to obtain biopsy results, [facility] Per thoracic sx: - OR 01/04, VATS, exploration , washout, biopsies - Chest tubes in place managed by thoracic sx - ok for regular diet - Schedule tramadol 25 for moderate and 50 for severe pain - Schedule tylenol Q8h - 01/06: AM CXR Acute anemia - improving Hgb 8.9 from 8.5 Transfusion if needed CBC Cw Venofer for total 5 doses (end 01/08) 2) STEWART on CKD3b - resolved Pt's creatinine on admission is 1.5 which is what her baseline is documented as upon review of outside records. STEWART that was noted at OSH appears to have resolved Chronic Conditions: HTN: Holding COST CLERK lisinopril 10-HCTZ 12.5. Will restart if blood pressure is consistently >150/>90 in the IP setting Dyslipidemia: Continue COST CLERK rosuvastatin 40, holding COST CLERK fenofibrate Prediabetes: Holding COST CLERK metformin MISC Peripheral Line Lower;Right 22 Gauge (Active) Number of days: 5 Peripheral Line Right Wrist 18 Gauge (Active) Number of days: 1 Chest Tube Right;Lower;Lateral Chest (Active) Number of days: 1 Chest Tube Right;Lower;Lateral Chest (Active) Number of days: 1 Misc: Diet: Orders Placed This Encounter Procedures NPO After 2400 Except Meds NPO After 2400 Except Meds Clear Liquid Diet VTE Prophylaxis: This patient does not have an active medication from one of the medication groupers. Code Status: Full Code Anticipated Discharge: +2 days Patient was discussed with attending physician, Susan Franks MD This chart was completed in part utilizing [employer] Speech Voice Recognition Software. Grammatical errors, random word insertions, pronoun errors, and incomplete sentences are an occasional consequence of this system due to software limitations, ambient noise, and hardware issues. Any formal questions or concerns about the content, text, or information contained within the body of this dictation should be directly addressed to the provider for clarification. Associated attestation - Ssuan Franks MD - 01/05/2024 6:09 PM EST I saw and evaluated the patient today. I have reviewed the trainee note and agree. I spent a total of 50 minutes coordinating, documenting, and providing care for this patient excluding time spent in the performance of separately billed services. 68 year old woman admitted for suspected metastatic cancer with R lung mass and effusion. She was worked up at [facility] with IR biopsy which was nondiagnostic and EBUS with biopsy which results (sent to [facility] today) were also inconclusive. She underwent VATS for drainage of R-sided effusion, washout to prevent fibrothorax development, and tissue sampling for diagnosis on 01/04/24. Biopsy results from these are pending. She is afebrile, HDS, and saturating well on 2L NC. She has 2 x chest tube on R side intact. Atriumwith air leak noted this afternoon after dressing change. Informed thoracic surgery. Her breath sounds are coarse bilaterally. Minimal pitting edema. Labs with persistent leukocytosis and stable hemoglobin (but did receive 2 units in OR yesterday). Suspected metastatic malignancy - Follow surgical pathology results from biopsy obtained by VATS on01/04/24. Once tissue diagnosis made, can involve appropriate oncology team. R pleural effusion s/p chest tube placement - Thoracic surgery managing chest tube. Currently to suction. Daily CXR. * Romaine Tejada MD - 01/04/2024 6:30 AM EST PROGRESS NOTE - RESIDENT - HOSPITAL MEDICINE [facility]-[address] [address] Name: Troy Walsh Location: [facility] [id number] Date: 01/04/2024 Time: 6:30 AM Date of admission: 12/31/2023 Hospital length of stay: 4 days Subjective Interval History: No acute events overnight vitals are within normal limits denied chest pain nausea vomiting fever and chill. Patient was NPO after midnight awaiting procedure this morning. Objective CONSTITUTIONAL DATA / OBJECTIVE: Vital Signs (Most Recent): Blood Pressure: 139/56 mmHg Pulse: 80 Temperature: 37.3 C (99.1 F) Respiratory Rate: 17 O2 Saturation: 92 % Physical Examination: General: In no acute distress HEENT: Atraumatic normocephalic Heart: Regular rate and rhythm Pulmonary: Nonlabored breathing decreased breath sounds unchanged in her right lungs Abdomen: Soft nondistended nontender no guarding or rebound tenderness MSK: No Gross deformity Extremities: No pitting edema present at lower extremity bilaterally Skin: Moville, warm, no wounds or lesions present. Neuro: AAOx3. No gross motor or sensory deficits. Psych: Appropriate mood insight Peripheral Line Lower;Right 22 Gauge (Active) Number of days: 4 Laboratory Values: reviewed. Radiographic Studies: reviewed. Assessment & Plan Assessment and Plan: Principal Problem: Mass of right lung (POA: Yes) Active Problems: Acute hypoxic respiratory failure (HCC) (POA: Yes) Uncomplicated asthma (POA: Yes) Prediabetes (POA: Yes) HTN, goal below 130/80 (POA: Yes) Stage 3b chronic kidney disease (HCC) (POA: Yes) Dyslipidemia (POA: Yes) Lymph node enlargement (POA: Yes) Hemothorax on right (POA: Unknown) POA = Present On Admission 68-year-old female transferred from [facility] due to concern for undiagnosed malignancy multiple lung nodules, right pleural mass, and abnormal lymph nodes in the abdomen and possiblepathologic ovarian enlargement. Sent to [facility] because residential coordinator at [facility] believed patient should have a VATS, awaiting biopsy result. Undiagnosed metastatic malignancy Multiple lung nodules Pt has multiple lung nodules, right pleural mass, and abnormal lymph nodes in the abdomen and possible pathologic ovarian enlargement. Patient has unintentional 10 lb weight loss. Increased dyspnea on exertion and fatigue for weeks to months preceding this admission. Patient had bronchoscopy with EBU S biopsies of vascular R hilar mass performed at OSH prior to transfer, pathology reports pending. IR guided Bx of R pleural mass and thoracocentesis was nondiagnostic and returned only what appeared to be old blood/clot. Staging CTs and MRI of the brain were performed as discussed in HPI. Outside films have been nominated to PACS. Patient was transferred here in the context of pursuing VATS lung biopsy given that IR guided biopsy only returned what appeared to be old clot. It is unclear why they did not wait for EBUS Bx pathology reports before jumping to recommendation of VATS aside from OSH Mechanical Oxidizer documenting, "given the significant fibrosis and loculation, slowly oozing right hilar mass. I think patient will benefit from VATS." Patient was breathing quite comfortably on 2 L of oxygen with saturation well above 90%, no documented hypoxia at outside hospital. There was concern for pneumonia and UTI for which Pt received ceftriaxone azithromycin but there is no convincing evidence to suggest that this is an acute infectious process so we will not be continuing antibiotics. Awaiting biopsy results Thoracic Surgery following, appreciate recs Restart abx if febrile OSH Bcx were negative >48 hrs Continue COST CLERK fluticasone MDI twice daily Continue COST CLERK albuterol MDI p.r.n. Nominate OSH radiology reports for IOF F/u OSH EBUS biopsy pathology reports Will c/s Oncology once pathology reports available Wean O2 to goal SpO2 > 92% Contacted [facility] to obtain biopsy results, awaiting biopsy result from [facility] Per thoracic sx: - OR 01/04, VATS, exploration , washout, biopsies - NPO awaiting procedure Acute anemia - improving Hgb 8.9 from 8.5 Transfusion if needed CBC Cw Venofer 2) STEWART on CKD3b - resolved Pt's creatinine on admission is 1.5 which is what her baseline is documented as upon review of outside records. STEWART that was noted at OSH appears to have resolved Chronic Conditions: HTN: Holding COST CLERK lisinopril 10-HCTZ 12.5. Will restart if blood pressure is consistently >150/>90 in the IP setting Dyslipidemia: Continue COST CLERK rosuvastatin 40, holding COST CLERK fenofibrate Prediabetes: Holding COST CLERK metformin MISC Peripheral Line Lower;Right 22 Gauge (Active) Number of days: 4 Misc: Diet: Orders Placed This Encounter Procedures NPO After 2400 Except Meds NPO After 2400 Except Meds NPO After 2400 Except Meds VTE Prophylaxis: This patient does not have an active medication from one of the medication groupers. Code Status: Full Code Anticipated Discharge: +2 days Patient was discussed with attending physician, Susan Franks MD This chart was completed in part utilizing [employer] Speech Voice Recognition Software. Grammatical errors, random word insertions, pronoun errors, and incomplete sentences are an occasional consequence of this system due to software limitations, ambient noise, and hardware issues. Any formal questions or concerns about the content, text, or information contained within the body of this dictation should be directly addressed to the provider for clarification. Associated attestation - Susan Franks MD - 01/04/2024 1:58 PM EST I saw and evaluated the patient today. I have reviewed the trainee note and agree. 68 year old woman admitted for suspected metastatic cancer with R lung mass and effusion. She was worked up at [facility] with IR biopsy which was nondiagnostic and EBIS with biopsy (these results still pending). She is planned for VATS with thoracic surgery today for drainage of R-sided effusion, washout to prevent fibrothorax development, and tissue sampling for diagnosis. * Rocky, Shorty Luc, MD - 01/04/2024 6:07 AM EST PROGRESS NOTE - Thoracic Surgery [facility]-[address] [address] Name: Troy Walsh Location: [facility] A569/B Date: 01/04/2024 Time: 6:07 AM DIAGNOSIS: Right lung mass, c/f malgnancy OPERATION: none yet SURGEON: N/A SUBJECTIVE: Pt reports that she us doing ok. Has mild SOB with ambulation, otherwise denies SOB at rest, denies CP, F/C/N/V. Ready for surgery today. VITAL SIGNS: Reviewed. TUBES/LINES: No chest tube PHYSICAL EXAM: Incisions/Wounds: none Lungs: normal respiratory effort Heart: normal rate and rhythm Abdomen: normal Extremities: no edema Neuro: awake and alert and grossly intact CXR: none this AM LABS: reviewed IMPRESSION and PLAN: Pain Management: per primary The patient's pain is well controlled: yes Chest Tube Management: none - Plan for VATS this AM - Consent needed - OSH bx pending The patient will be discussed with Dr. Hidalgo. Walt Licona MD General Surgery Resident, PGY-3 Thoracic Surgery - Heart and V[facility] [place] I saw and evaluated the patient today. I have reviewed the trainee note and agree. Delayed entry for care rendered on 01/04/24 ATTENDING ADDENDUM: I have seen, examined, and evaluated this patient, and all imaging studies and records have been personally reviewed by me. I have discussed the case and it's management with the resident/ mid-level providers as documented in the resident/mid-level provider's note on the day of service. Discussed with patient recommendation of surgical exploration, washout, possible biopsies in form of either pleural biopsies or wedge resection. We discussed risks including infection, bleeding, damage to surrounding structures, air leaks, , arryhtmia, heart attack , blood clots, stroke , and . Patient was agreeable and signed informed consent. -OR today for R VATS washout, tissue sampling/biopsies Shorty Hidalgo MD * Shorty Hidalgo MD - 01/03/2024 9:17 AM EST Images from the original note were not included. PROGRESS NOTE - Thoracic Surgery [address] [address] Name: Troy Walsh Location: [facility] A572/A Date: 01/03/2024 Time: 9:19 AM DIAGNOSIS: Right lung mass, c/f malgnancy OPERATION: none yet SURGEON: N/A SUBJECTIVE: Pt reports that she us doing ok. VITAL SIGNS: Reviewed. TUBES/LINES: No chest tube PHYSICAL EXAM: Incisions/Wounds: none Lungs: normal respiratory effort Heart: normal rate and rhythm Abdomen: normal Extremities: no edema Neuro: awake and alert and grossly intact CXR: none today LABS: reviewed IMPRESSION and PLAN: Pain Management: per primary The patient's pain is well controlled: yes Chest Tube Management: none - Plan for VATS tomorrow - Consent needed - OSH bx pending The patient was examined and was discussed with Dr. Hidalgo. Walt Licona MD General Surgery Resident, PGY-3 Thoracic Surgery - Heart and Vascular [place] Delayed entry for care rendered on 01/03/24 ATTENDING ADDENDUM: I have seen, examined, and evaluated this patient, and all imaging studies and records have been personally reviewed by me. I have discussed the case and it's management with the resident/ mid-level providers as documented in the resident/mid-level provider's note on the day of service. 68yoF with findings concerning for stage IV lung cancer. I do not have access to official radiology reports but I reviewed most recent CT chest. There is a large right hilar mass and bilateral lung nodules suspicoius for metastasis. There is also suspicionof pleural based disease. There is a moderate right basilar effusion that appears to have blood products. Discussed with patient a recommendation of R VATS exploration which will allow for draining of effusion and washout of her chest to prevent fibrothorax as well possible tissue sampling for diagnosis and staging. She seemed agreeable -OR tenatively tomorrow for R VATS, exploration , washout, biopsies Shorty Hidalgo MD * Romaine Tejada MD - 01/03/2024 6:34 AM EST PROGRESS NOTE - RESIDENT - HOSPITAL MEDICINE [facility] [address] Name: Troy Walsh Location: [facility] A572/A Date: 01/03/2024 Time: 6:34 AM Date of admission: 12/31/2023 Hospital length of stay: 3 days Subjective Interval History: No acute events overnight. Vitals are within normal limits. Denied chest pain nausea vomiting feverand chill. Tolerated diet well. Objective CONSTITUTIONAL DATA / OBJECTIVE: Vital Signs (Most Recent): Blood Pressure: 141/63 mmHg Pulse: 94 Temperature: 37 C (98.6 F) Respiratory Rate: 16 O2 Saturation: 94 % Physical Examination: General: Patient in no apparent distress HEENT: Atraumatic normocephalic Heart: Regular rate and rhythm no murmur Pulmonary: Nonlabored breathing decreased breath sounds unchanged in her right lung Abdomen: Soft nondistended nontender no guarding or rebound tenderness MSK: no gross deformity Extremities: No pitting edema present at lower extremity bilaterally Skin: Moville, warm, no wounds or lesions present. Neuro: AAOx3. No gross motor or sensory deficits. Psych: Appropriate mood insight Peripheral Line Lower;Right 22 Gauge (Active) Number of days: 3 Laboratory Values: reviewed. Radiographic Studies: reviewed. Assessment & Plan Assessment and Plan: Principal Problem: Mass of right lung (POA: Yes) Active Problems: Acute hypoxic respiratory failure (HCC) (POA: Yes) Uncomplicated asthma (POA: Yes) Prediabetes (POA: Yes) HTN, goal below 130/80 (POA: Yes) Stage 3b chronic kidney disease (HCC) (POA: Yes) Dyslipidemia (POA: Yes) Lymph node enlargement (POA: Yes) POA = Present On Admission 68-year-old female transferred from [facility] due to concern for undiagnosed malignancy multiple lung nodules, right pleural mass, and abnormal lymph nodes in the abdomen and possiblepathologic ovarian enlargement. Sent to [facility] because residential coordinator at [facility] believed patient should have a VATS, awaiting biopsy result. 1) Concern for undiagnosed metastatic malignancy Acute hypoxic respiratory failure Pt has multiple lung nodules, right pleural mass, and abnormal lymph nodes in the abdomen and possible pathologic ovarian enlargement. Patient has unintentional 10 lb weight loss. Increased dyspnea on exertion and fatigue for weeks to months preceding this admission. Patient had bronchoscopy with EBU S biopsies of vascular R hilar mass performed at OSH prior to transfer, pathology reports pending. IR guided Bx of R pleural mass and thoracocentesis was nondiagnostic and returned only what appeared to be old blood/clot. Staging CTs and MRI of the brain were performed as discussed in HPI. Outside films have been nominated to PACS. Patient was transferred here in the context of pursuing VATS lung biopsy given that IR guided biopsy only returned what appeared to be old clot. It is unclear why they did not wait for EBUS Bx pathology reports before jumping to recommendation of VATS aside from OSH Mechanical Oxidizer documenting, "given the significant fibrosis and loculation, slowly oozing right hilar mass. I think patient will benefit from VATS." Patient was breathing quite comfortably on 2 L of oxygen with saturation well above 90%, no documented hypoxia at outside hospital. There was concern for pneumonia and UTI for which Pt received ceftriaxone azithromycin but there is no convincing evidence to suggest that this is an acute infectious process so we will not be continuing antibiotics. Awaiting biopsy results Thoracic Surgery following, appreciate recs Restart abx if febrile OSH Bcx were negative >48 hrs Continue COST CLERK fluticasone MDI twice daily Continue COST CLERK albuterol MDI p.r.n. Nominate OSH radiology reports for IOF F/u OSH EBUS biopsy pathology reports Will c/s Oncology once pathology reports available Wean O2 to goal SpO2 > 92% Contacted [facility] to obtain biopsy results, awaiting biopsy result from [facility] Per thoracic sx: - OR tentative 01/04, VATS, exploration , washout, biopsies Acute anemia - improving Hgb 9.1 from 8.5 Transfusion if needed CBC Cw Venofer 2) STEWART on CKD3b - resolved Pt's creatinine on admission is 1.5 which is what her baseline is documented as upon review of outside records. STEWART that was noted at OSH appears to have resolved Chronic Conditions: HTN: Holding COST CLERK lisinopril 10-HCTZ 12.5. Will restart if blood pressure is consistently >150/>90 in the IP setting Dyslipidemia: Continue COST CLERK rosuvastatin 40, holding COST CLERK fenofibrate Prediabetes: Holding COST CLERK metformin MISC Peripheral Line Lower;Right 22 Gauge (Active) Number of days: 3 Misc: Diet: Orders Placed This Encounter Procedures Regular Diet VTE Prophylaxis: This patient does not have an active medication from one of the medication groupers. Code Status: Full Code Anticipated Discharge: +2 days Patient was discussed with attending physician, London Aguirre MD This chart was completed in part utilizing [employer] Voice Recognition Software. Grammatical errors, random word insertions, pronoun errors, and incomplete sentences are an occasional consequence of this system due to software limitations, ambient noise, and hardware issues. Any formal questions or concerns about the content, text, or information contained within the body of this dictation should be directly addressed to the provider for clarification. Associated attestation - London Aguirre MD - 01/03/2024 1:52 PM EST I saw and evaluated the patient today. I have reviewed the trainee note and agree. Presyncopal, reported hypotension on arrival at the OSH. EKG and CXR obtained which showed R Pleural effusion. Labs with Anemia, STEWART, leucocytosis. Was receiving CTX and Azithromycin. Needed 2 L NC during that admission. Blood cultures 12/27 NGTD (after receiving abx). IR thora and attempted bx of the rt pleural mass, 10 ml of bloody fluid. Rt Hilar mass EBUS with pulmonology. Bedside chest tube unsuccessful MRI brain was done as well. - which was negative Transferred to [facility] for possible VATS. 10 lbs weight loss since October. Decreased appetite for the past few months. Non smoker. BP 127/55 | Pulse 97 | Temp 37.4 C (99.3 F) (Tympanic) | Resp 18 | Ht 1.702 m (5' 7") | Wt 89 kg (196 lb 4.8 oz) | SpO2 94% | BMI 30.74 kg/m | BSA 2.05 m Impression: Rt hilar mass Pleural base mass, intra abd LN Moderate Rt basilar effusion with possible blood CT surgery consulted and plan for R vats exploration to drain the effusion and washout chest to prevent fibrothorax and possible tissue sampling. Sister updated at bedside. I spent a total of 45 minutes coordinating, documenting, and providing care for this patient excluding time spent in the performance of separately billed services. * Romaine Tejada MD - 01/02/2024 6:49 AM EST PROGRESS NOTE - RESIDENT - [facility] MEDICINE [facility] [address] Name: Troy Walsh Location: [facility] A572/A Date: 01/02/2024 Time: 6:49 AM Date of admission: 12/31/2023 Hospital length of stay: 2 days Subjective Interval History: No acute events overnight vitals are within normal limits denied nausea vomiting fever and chill chest pain shortness of breath. Tolerating diet well. Patient is saturating well on room air 92% or above. Objective CONSTITUTIONAL DATA / OBJECTIVE: Vital Signs (Most Recent): Blood Pressure: 137/52 mmHg Pulse: 93 Temperature: 37 C (98.6 F) Respiratory Rate: 16 O2 Saturation: 94 % Physical Examination: General: Patient in no apparent distress HEENT: Atraumatic normocephalic Heart: Regular rate and rhythm no murmurs Pulmonary: Nonlabored breathing decreased breath sounds unchanged in the right lungs. Abdomen: Soft nondistended nontender no guarding or rebound tenderness MSK: no gross deformity Extremities: No pitting edema present at lower extremity bilaterally Skin: Moville, warm, no wounds or lesions present. Neuro: AAOx3. No gross motor or sensory deficits. Psych: Appropriate mood insight Peripheral Line Lower;Right 22 Gauge (Active) Number of days: 2 Laboratory Values: reviewed. Radiographic Studies: reviewed. Assessment & Plan Assessment and Plan: Principal Problem: Mass of right lung (POA: Yes) Active Problems: Acute hypoxic respiratory failure (HCC) (POA: Yes) Uncomplicated asthma (POA: Yes) Prediabetes (POA: Yes) HTN, goal below 130/80 (POA: Yes) Stage 3b chronic kidney disease (HCC) (POA: Yes) Dyslipidemia (POA: Yes) Lymph node enlargement (POA: Yes) POA = Present On Admission 68-year-old female transferred from [facility] due to concern for undiagnosed malignancy multiple lung nodules, right pleural mass, and abnormal lymph nodes in the abdomen and possiblepathologic ovarian enlargement. Sent to [facility] because residential coordinator at [facility] believed patient should have a VATS, awaiting biopsy result. 1) Concern for undiagnosed metastatic malignancy Acute hypoxic respiratory failure Pt has multiple lung nodules, right pleural mass, and abnormal lymph nodes in the abdomen and possible pathologic ovarian enlargement. Patient has unintentional 10 lb weight loss. Increased dyspnea on exertion and fatigue for weeks to months preceding this admission. Patient had bronchoscopy with EBU S biopsies of vascular R hilar mass performed at OSH prior to transfer, pathology reports pending. IR guided Bx of R pleural mass and thoracocentesis was nondiagnostic and returned only what appeared to be old blood/clot. Staging CTs and MRI of the brain were performed as discussed in HPI. Outside films have been nominated to PACS. Patient was transferred here in the context of pursuing VATS lung biopsy given that IR guided biopsy only returned what appeared to be old clot. It is unclear why they did not wait for EBUS Bx pathology reports before jumping to recommendation of VATS aside from OSH Mechanical Oxidizer documenting, "given the significant fibrosis and loculation, slowly oozing right hilar mass. I think patient will benefit from VATS." Patient was breathing quite comfortably on 2 L of oxygen with saturation well above 90%, no documented hypoxia at outside hospital. There was concern for pneumonia and UTI for which Pt received ceftriaxone azithromycin but there is no convincing evidence to suggest that this is an acute infectious process so we will not be continuing antibiotics. Awaiting biopsy results Thoracic Surgery following, appreciate recs Restart abx if febrile OSH Bcx were negative >48 hrs Continue COST CLERK fluticasone MDI twice daily Continue COST CLERK albuterol MDI p.r.n. Nominate OSH radiology reports for IOF F/u OSH EBUS biopsy pathology reports Will c/s Oncology once pathology reports available Wean O2 to goal SpO2 > 92% Contacted [facility] to obtain biopsy results, awaiting biopsy result from [facility] Acute anemia - improving Hgb 9.1 from 8.5 Transfusion if needed CBC Cw Venofer 2) STEWART on CKD3b - resolved Pt's creatinine on admission is 1.5 which is what her baseline is documented as upon review of outside records. STEWART that was noted at OSH appears to have resolved Chronic Conditions: HTN: Holding COST CLERK lisinopril 10-HCTZ 12.5. Will restart if blood pressure is consistently >150/>90 in the IP setting Dyslipidemia: Continue COST CLERK rosuvastatin 40, holding COST CLERK fenofibrate Prediabetes: Holding COST CLERK metformin MISC Peripheral Line Lower;Right 22 Gauge (Active) Number of days: 2 Misc: Diet: Orders Placed This Encounter Procedures Regular Diet VTE Prophylaxis: This patient does not have an active medication from one of the medication groupers. Code Status: Full Code Anticipated Discharge: +2 days Patient was discussed with attending physician, London Aguirre MD This chart was completed in part utilizing [employer] Speech Voice Recognition Software. Grammatical errors, random word insertions, pronoun errors, and incomplete sentences are an occasional consequence of this system due to software limitations, ambient noise, and hardware issues. Any formal questions or concerns about the content, text, or information contained within the body of this dictation should be directly addressed to the provider for clarification. Associated attestation - London Aguirre MD - 01/02/2024 3:55 PM EST I saw and evaluated the patient today. I have reviewed the trainee note and agree. Doing well. Hemoglobin stable. Biopsy results pending. Iron repletion Pending biopsy result potentially could have IR try to get a draining posteriorly if she has increased oxygen requirements. Currently saturating well in room air. I spent a total of 45 minutes coordinating, documenting, and providing care for this patient excluding time spent in the performance of separately billed services. This note was completed in part utilizing [employer] Speech Voice Recognition Software. Grammatical errors, random word insertions, pronoun errors and incomplete sentences are an occasional consequence of this system due to software limitations, ambient noise and hardware issues. Please directly address the provider for any questions or concerns about the context, text or information contained within the body of this note. * Romaine Tejada MD - 01/01/2024 7:07 AM EST PROGRESS NOTE - RESIDENT - HOSPITAL MEDICINE [facility]-[address] [address] Name: Troy Walsh Location: [facility] A572/A Date: 01/01/2024 Time: 7:07 AM Date of admission: 12/31/2023 Hospital length of stay: 1 days Subjective Interval History: No acute events overnight vitals are within normal limits denied nausea or vomiting fever and chillpatient complain of back pain. Tolerated diet well. Patient was still on 3 L oxygen, sat well. Objective CONSTITUTIONAL DATA / OBJECTIVE: Vital Signs (Most Recent): Blood Pressure: 127/55 mmHg Pulse: 81 Temperature: 36.5 C (97.7 F) Respiratory Rate: 19 O2 Saturation: 97 % Physical Examination: General: Patient in no apparent distress HEENT: normocephalic, atraumatic Heart: RRR, no murmur or thrill Pulmonary: Nonlabored breathing on 3 L decreased breath sounds in the right lung field. No wheezingcrackles Abdomen: soft non distended non tender, no guarding or rebound tenderness MSK: no gross deformity Extremities: No pitting edema present at lower extremity bilaterally Skin: [place], warm, no wounds or lesions present. Neuro: AAOx3. No gross motor or sensory deficits. Psych: Appropriate mood and affect Peripheral Line Lower;Right 22 Gauge (Active) Number of days: 1 Laboratory Values: reviewed. Radiographic Studies: reviewed. Assessment & Plan Assessment and Plan: Principal Problem: Mass of right lung (POA: Yes) Active Problems: Acute hypoxic respiratory failure (HCC) (POA: Yes) Uncomplicated asthma (POA: Yes) Prediabetes (POA: Yes) HTN, goal below 130/80 (POA: Yes) Stage 3b chronic kidney disease (HCC) (POA: Yes) Dyslipidemia (POA: Yes) Lymph node enlargement (POA: Yes) POA = Present On Admission 68-year-old female transferred from [facility] due to concern for undiagnosed malignancy multiple lung nodules, right pleural mass, and abnormal lymph nodes in the abdomen and possiblepathologic ovarian enlargement. Sent to [facility] because residential coordinator at [facility] believed patient should have a VATS, awaiting biopsy result. 1) Concern for undiagnosed metastatic malignancy Acute hypoxic respiratory failure Pt has multiple lung nodules, right pleural mass, and abnormal lymph nodes in the abdomen and possible pathologic ovarian enlargement. Patient has unintentional 10 lb weight loss. Increased dyspnea on exertion and fatigue for weeks to months preceding this admission. Patient had bronchoscopy with EBU S biopsies of vascular R hilar mass performed at OSH prior to transfer, pathology reports pending. IR guided Bx of R pleural mass and thoracocentesis was nondiagnostic and returned only what appeared to be old blood/clot. Staging CTs and MRI of the brain were performed as discussed in HPI. Outside films have been nominated to PACS. Patient was transferred here in the context of pursuing VATS lung biopsy given that IR guided biopsy only returned what appeared to be old clot. It is unclear why they did not wait for EBUS Bx pathology reports before jumping to recommendation of VATS aside from OSH Mechanical Oxidizer documenting, "given the significant fibrosis and loculation, slowly oozing right hilar mass. I think patient will benefit from VATS." Patient was breathing quite comfortably on 2 L of oxygen with saturation well above 90%, no documented hypoxia at outside hospital. There was concern for pneumonia and UTI for which Pt received ceftriaxone azithromycin but there is no convincing evidence to suggest that this is an acute infectious process so we will not be continuing antibiotics. Thoracic Surgery following, appreciate recs Restart abx if febrile OSH Bcx were negative >48 hrs Continue COST CLERK fluticasone MDI twice daily Continue COST CLERK albuterol MDI p.r.n. Nominate OSH radiology reports for IOF F/u OSH EBUS biopsy pathology reports Will c/s Oncology once pathology reports available Wean O2 to goal SpO2 > 92% Contacted [facility] to obtain biopsy results Acute anemia Transfusion if needed CBC Fu Iron Panel 2) STEWART on CKD3b - resolved Pt's creatinine on admission is 1.5 which is what her baseline is documented as upon review of outside records. STEWART that was noted at OSH appears to have resolved Chronic Conditions: HTN: Holding COST CLERK lisinopril 10-HCTZ 12.5. Will restart if blood pressure is consistently >150/>90 in the IP setting Dyslipidemia: Continue COST CLERK rosuvastatin 40, holding COST CLERK fenofibrate Prediabetes: Holding COST CLERK metformin MISC Peripheral Line Lower;Right 22 Gauge (Active) Number of days: 1 Misc: Diet: Orders Placed This Encounter Procedures Regular Diet VTE Prophylaxis: This patient does not have an active medication from one of the medication groupers. Code Status: Full Code Anticipated Discharge: +2 days Patient was discussed with attending physician, London Aguirre MD This chart was completed in part utilizing [employer] Voice [employer]ognition Software. Grammatical errors, random word insertions, pronoun errors, and incomplete sentences are an occasional consequence of this system due to software limitations, ambient noise, and hardware issues. Any formal questions or concerns about the content, text, or information contained within the body of this dictation should be directly addressed to the provider for clarification. Associated attestation - London Aguirre MD - 01/01/2024 2:27 PM EST I saw and evaluated the patient today. I have reviewed the trainee note and agree. Doing well. Hemoglobin stable. Biopsy results pending. Dr. Tejada attempted to call [facility] for bx results which are not back yet. Found to have iron-deficiency and will replete. Pending biopsy result potentially could have IR try to get a draining posteriorly if she has increased oxygen requirements. Currently saturating well in room air. Sister updated at bedside. I spent a total of 45 minutes coordinating, documenting, and providing care for this patient excluding time spent in the performance of separately billed services. documented in this encounter H&P Notes * Malu Gupta MD - 01/12/2024 3:58 PM EST PRE-SEDATION ASSESSMENT: Lung Biopsy,Possible Chest Tube Placement Level of sedation planned: Moderate Patient's allergies reviewed: Yes H&P Review / Interval Note Documentation: I have reviewed the H&P previously performed, examined the patient today, and the following findings are new (see comments). Non-diagnostic VATS biopsy Difficulty with sedation / anesthesia: No Sleep apnea: No History of snoring: No History of difficult intubation: No Decreased ROM neck flexion/extension: No Tracheal deviation: No Decreased ability to open mouth / TMJ: No Loose teeth / dentures / partial: No Congenital deformities / abnormalities: No Dysphagia: No Mallampati Classification: III - soft palate, base of uvula visible ASA Risk Stratification ([employer]): ASA 2 - Mild systemic disease, no functional limitations The patient was identified and the procedure verified: Yes Proceed with lung biopsy under moderate sedation. * Shorty Hidalgo MD - 01/04/2024 10:51 AM EST HISTORY & PHYSICAL INTERVAL NOTE - Thoracic Surgery Service [address] [address] History and Physical Update: Name: Troy Walsh Location: [place] [facility] Date: 01/04/2024 Time: 10:51 AM DATE OF HISTORY AND PHYSICAL: 01/04/24 BP: 127 mmHg/51 mmHg (01/04/24921) Pulse: 98 (01/04/24921) Temp: 37.78 C (01/04/24921) Temp Summary: Temp Min: 37.2 C (98.9 F) Max: 37.8 C (100 F) SpO2: 97 % (01/04/24921) O2 flow rate: 0 L/MIN (01/04/24 0400) Supplemental O2 Delivery: Room Air, None (01/04/24921) Heart Exam: regular rate and rhythm Lung Exam: clear to auscultation bilaterally I have reviewed the H&P previously performed and examined the patient today. The following findings are new: . Biopsies of tracheal polypcs from outside hospital benign. Discussed surgical washout, biopsies. Wediscussed risks including infection, bleeding, damage to surrounding structures, air leaks, benign disease, arryhtmia, heart attack , blood clots, stroke , and . Patient was agreeable and signedinformed consent. Pre-op [facility] Lung Cancer checklist completed (Episodes tab)? n/a - does not apply to this patient Did you CONFIRM beta-blockade? n/a - this patient does not take beta-blockade Did you CONFIRM anticoagulation? n/a - this patient does not take anticoagulation Shorty Hidalgo MD * Jose Palacios DO - 12/31/2023 1:07 PM EST [facility] A572/A PRESENTING PROBLEM: Transferred from [facility] due to concern for undiagnosed malignancy due to lung nodules and R pleural mass HPI: 68 YO F admitted as a transfer from [facility] as stated above. PMH significant for: Asthma, hypertension,prediabetes, dyslipidemia, CKD 3B, and history of nephrolithiasis. Patient presented to [facility] emergency department on 12/27/23 after a presyncopal episode while at an outpatient nephrology appointment. Patient remembers feeling lightheaded and short of breath and does not recall much else about it. She is a difficult historian. History obtained per patient and reviewof OSH records. Patient reports unintentional 10 lb weight loss since October. Denies night sweats, bone pain, difficulty breathing at rest, hemoptysis, chest pain, palpitations. Does endorse decreased appetite forthe past few months. Endorses productive cough for at least a few weeks. While in OSH ED, patient was hypotensive on initial V/S 82/50 which quickly resolved (no clear documentation that IV fluid resuscitation was given), saturating above 90% on room air,, afebrile. Therewas a chest x-ray performed which showed whiteout of the right lung field and large pleural effusion. CT chest performed which revealed numerous nodules (measuring up to 73 mm) throughout the right lung and a right pleural mass concerning for malignancy. Initial labs notable for WBC 15.85, HB 10.8,PLT 580, creatinine 2.32 (baseline around 1.5 in October 2023 per documentation). COVID, flu, RSV negative. Received ceftriaxone and azithromycin due to concern for possible pneumonia and urinary tract infection. At some point during the hospital course, patient was put on 2 L nasal cannula. Thereare no clearly documented hypoxic episodes but patient reports feeling that she breathes better with oxygen on Blood cultures were drawn on 12/27/2023 after receiving antibiotics in the ED IR performed thoracentesis and attempted Bx of R pleural mass on 12/29/2023 which resulted in only 10 mL bloody fluid returning. Bronchoscopy with EBUS was performed 12/30/2023 of R hilar mass and, subsequently, pleural effusion has reported to have worsened after the procedure. The right bronchus intermedius lumen is described as narrowed as if something was pushing from the outside but there were "no other findings of mass, anatomic distortions, or hemorrhage" (on bronchoscopy). EBUS revealed a right hilar lesion was encased in a highly vascular mass at station 10 R. It is documented that given the significant fibrosis and loculation, slowly oozing right hilar mass...think patient will benefit from VATS" a bedside chest tube was attempted but unsuccessful due to fibrotic tissue. 4 samples were collected during EBUS and pathology results pending. MRI brain WO was obtained to assess for metastatic disease. There was no definite evidence of intracranial metastatic disease CT A/P was obtained to assess for metastatic disease which showed prominent gastrohepatic lymph nodes concerning for early metastatic change, indeterminate 1 cm subcutaneous nodule within the left upper abdominal wall, and increased right ovary size to 4.3 cm which could be pathologic. Social Hx: - lifetime nonsmoker - never , no kids - lives with her sister Patient wishes to be full code. If she is unable to make decisions for herself, she would like her sister to be her surrogate decision maker Subjective ROS: Reviewed and otherwise negative aside from as stated in HPI No past medical history on file. No past surgical history on file. No family history on file. Social History Tobacco Use Smoking status: Not on file Smokeless tobacco: Not on file Substance Use Topics Alcohol use: Not on file Drug use: Not on file MEDICATIONS: Prior to admission medications have been reviewed. ALLERGIES: Patient has no allergy information on record. Objective PHYSICAL EXAMINATION: Most Recent Vital Signs: BP: 140 mmHg/65 mmHg (12/31/23 1147) Pulse: 95 (12/31/23 1147) Temp: 37.11 C (12/31/23 1147) Temp Summary: Temp Min: 37.1 C (98.8 F) Max: 37.1 C (98.8 F) SpO2: O2 flow rate: Supplemental O2 Delivery: General: NAD resting comfortably, awake and alert Head and face: atraumatic, normocephalic Eyes: normal lids, nonicteric sclera, no conjunctival injection Nose: no rhinorrhea or congestion, no maxillary or frontal sinus tenderness Neck: supple, symmetrical, no LAD Respiratory: Non-labored breathing on 2 L LFNC, decreased breath sounds throughout the right lung field, no adventitious lung sounds Cardiovascular: regular rate and rhythm, S1 and S2 appreciated, no r/g/m Abdomen: Soft, non-tender. Normoactive BS Peripheral vascular: cap refill <2 seconds, no LE edema, Radial 2/4 Psychiatric: normal judgement and insight, normal mood and normal affect Mental status: Alert, oriented to person, place, and time Language: expression / comprehension intact Speech: no dysarthria MSK/Motor strength: Follows commands in all 4 extremities Good bulk and tone in all four extremities. STUDIES: Reviewed EMR Assessment & Plan ASSESSMENT AND PLAN: Principal Problem: Mass of right lung Active Problems: Acute hypoxic respiratory failure (HCC) Uncomplicated asthma Prediabetes HTN, goal below 130/80 Stage 3b chronic kidney disease (HCC) Dyslipidemia Lymph node enlargement Resolved Problems: * No resolved hospital problems. * 68-year-old female transferred from [facility] due to concern for undiagnosed malignancy multiple lung nodules, right pleural mass, and abnormal lymph nodes in the abdomen and possiblepathologic ovarian enlargement. PMH as outlined in HPIAssessment and plan by problem as follows: 1) Concern for undiagnosed metastatic malignancy Acute hypoxic respiratory failure Pt has multiple lung nodules, right pleural mass, and abnormal lymph nodes in the abdomen and possible pathologic ovarian enlargement. Patient has unintentional 10 lb weight loss. Increased dyspnea on exertion and fatigue for weeks to months preceding this admission. Patient had bronchoscopy with EBU S biopsies of vascular R hilar mass performed at OSH prior to transfer, pathology reports pending. IR guided Bx of R pleural mass and thoracocentesis was nondiagnostic and returned only what appeared to be old blood/clot. Staging CTs and MRI of the brain were performed as discussed in HPI. Outside films have been nominated to PACS. Patient was transferred here in the context of pursuing VATS lung biopsy given that IR guided biopsy only returned what appeared to be old clot. It is unclear why they did not wait for EBUS Bx pathology reports before jumping to recommendation of VATS aside from OSH Mechanical Oxidizer documenting, "given the significant fibrosis and loculation, slowly oozing right hilar mass. I think patient will benefit from VATS." Patient was breathing quite comfortably on 2 L of oxygen with saturation well above 90%, no documented hypoxia at outside hospital. There was concern for pneumonia and UTI for which Pt received ceftriaxone azithromycin but there is no convincing evidence to suggest that this is an acute infectious process so we will not be continuing antibiotics. C/s Thoracic Surgery Wean oxygen to goal SpO2 >92% Restart abx if febrile OSH Bcx were negative >48 hrs F/u OSH EBUS biopsy pathology reports Continue COST CLERK fluticasone MDI twice daily Continue COST CLERK albuterol MDI p.r.n. Will c/s Oncology once pathology reports available Nominate OSH radiology reports for IOF 2) STEWART on CKD3b Pt's creatinine on admission is 1.5 which is what her baseline is documented as upon review of outside records. STEWART that was noted at OSH appears to have resolved Chronic Conditions: HTN: Holding COST CLERK lisinopril 10-HCTZ 12.5. Will restart if blood pressure is consistently >150/>90 in the IP setting Dyslipidemia: Continue COST CLERK rosuvastatin 40, holding COST CLERK fenofibrate Prediabetes: Holding COST CLERK metformin MISC -Access: PIV, -Diet: Orders Placed This Encounter Procedures Regular Diet -Stress Ulcer ppx: None -Bowel Regimen: , miralax; last BM COST CLERK -Sleep: None -Jackson: None -Rehab: PT/OT--recs pending -VTE ppx: Lovenox, SCDs -Code Status: Full Code -Disposition: Med-Surg; inpt until medically stable for d/c following Thoracic Surgery evaluation EXPECTED DISCHARGE DATE: 2 days or more This patient was discussed with attending physician Dr. Aguirre at the time of admission. Associated attestation - London Aguirre MD - 12/31/2023 2:52 PM EST I saw and evaluated the patient today. I have reviewed Dr. Palacios's note and agree. Presyncopal, reported hypotension on arrival at the OSH. EKG and CXR obtained which showed R Pleural effusion. Labs with Anemia, STEWART, leucocytosis. Was receiving CTX and Azithromycin. Needed 2 L NC during that admission. Blood cultures 12/27 NGTD (after receiving abx). IR thora and attempted bx of the rt pleural mass, 10 ml of bloody fluid. Rt Hilar mass EBUS with pulmonology. Bedside chest tube unsuccessful MRI brain was done as well. - which was negative Transferred to [facility] for possible VATS. 10 lbs weight loss since October. Decreased appetite for the past few months. Non smoker. BP 140/65 | Pulse 95 | Temp 37.1 C (98.8 F) | Resp 18 | Ht 1.702 m (5' 7") | Wt 89.8 kg (198 lb) | BMI 31.01 kg/m | BSA 2.06 m On 2 L NC. Impression: Rt hilar mass Pleural base mass, intra abd LN CT surgery consult and awaiting further recommendations, abx if evidence of fever or infection. I spent a total of 80 minutes coordinating, documenting, and providing care for this patient excluding time spent in the performance of separately billed services. documented in this encounter Procedure Notes * Luis Hernandez DO - 01/06/2024 5:27 AM ESTAssociated Order(s): EKG REASON FOR STUDY: CHEST PAIN CONCLUSIONS: Normal sinus rhythm Ventricular Rate: 85 Atrial Rate: 85 MA Interval: 146 QRS Duration: 92 QT/QTc: 376/447 ms P-R-T [place]: 24 : 2 : 0 degrees documented in this encounter Consult Notes * Andres Fofana MD - 12/31/2023 2:58 PM ESTAssociated Order(s): THORACIC SURGERY CONSULT IP 5.CONSULT - Thoracic Surgery [address] [address] Name: Troy Walsh Location: [facility] A572/A Date: 12/31/2023 Time: 2:58 PM REQUESTING SERVICE: Medicine REASON FOR CONSULT: Patient transferred here for VATS by [facility] HISTORY OF PRESENT ILLNESS: Troy Walsh is a 68 year old female with w Hx of HTN, DLD, HTN, preDM, CKD3 who had severe lethargy while she was at her doctor's appointment on Tuesday. It was the the point where she had required a wheelchair to get around during her appointment. She then presented to ED in [facility] andwas found to have a large pleural effusion. Large R chest mass that was biopsied on 12/30 via EBUS. Unknown primary at this time. Pathology results pending. Sent to [facility] because residential coordinator at [facility] believed patient should have a VATS. 10lbs weight loss since October. No night sweats, SOB, CP, nausea, vomiting. Chronic cough. HOSPITAL PROBLEM LIST: Principal Problem: Mass of right lung (POA: Yes) Active Problems: Acute hypoxic respiratory failure (HCC) (POA: Yes) Uncomplicated asthma (POA: Yes) Prediabetes (POA: Yes) HTN, goal below 130/80 (POA: Yes) Stage 3b chronic kidney disease (HCC) (POA: Yes) Dyslipidemia (POA: Yes) Lymph node enlargement (POA: Yes) POA = Present On Admission PAST MEDICAL HISTORY: No past medical history on file. As above in HPI PAST SURGICAL HISTORY: No past surgical history on file. SOCIAL HISTORY: Social History Tobacco Use Smoking status: Not on file Smokeless tobacco: Not on file Substance Use Topics Alcohol use: Not on file Drug use: Not on file Denies smoking, ETOH, recreation drugs FAMILY HISTORY: No family history on file. ALLERGIES: Patient has no allergy information on record. ROS: ROS negative unless specified above PHYSICAL EXAMINATION: Most Recent Vital Signs: BP: 140 mmHg/65 mmHg (12/31/23 1147) Pulse: 95 (12/31/23 1147) Temp: 37.11 C (12/31/23 1147) Temp Summary: Temp Min: 37.1 C (98.8 F) Max: 37.1 C (98.8 F) Gen: no acute distress Neck: supple, no palpable lymphadenoapathy CV: RRR, no MRG Chest: nonlabored breathing, left lung clear to ausclation, R lung w audible breath sounds upper chest, no audible sounds lower chest Abdomen: soft, nontender, nondistended Neuro: AOX3 Extremities: warm, well perfused, mild nonpiting edema LLE, no palpable lymphadenopathy inguinal and axilla regions LABS: Labs reviewed as indicated below: BMP Lab results within last 7 days (see chart for full results) Units 12/31/23 1239 Sodium mmol/L 139 Potassium mmol/L 4.1 Chloride mmol/L 101 CO2 mmol/L 27 BUN mg/dL 25* Creatinine mg/dL 1.5* CBC Lab results within last 7 days (see chart for full results) Units 12/31/23 1239 HGB g/dL 8.5* HCT % 27.3* WBC K/uL 12.60* PLT K/uL 592* HEPATIC PANEL Lab results within last 7 days (see chart for full results) Units 12/31/23 1239 Protein g/dL 6.7 Bilirubin, Total mg/dL 0.3 Alkaline Phosphatase U/L 167* AST U/L 22 ALT U/L 14 IMAGING: No imaging results in the last [address] reviewed from 12/27 and 12/28. Large R chest mass w small volume pleural fluid w associated atelactasis CXR 12/30 - large R pleural effusion IMPRESSION and PLAN: 68yo F w large R hilar mass. Pathology pending. Currently asymptomatic and satting well without oxygen needs. Large pleural effusion on CXR from 12/30. - no acute surgical interventions required - if patient becomes symptomatic/SOB please reach out to IR to discuss drainage - possible surgical intervention will depend on biopsy results, please reach out once biopsy results are available - thoracic surgery will be available - if there are additional concerns please reach out Patient discussed w Dr Doug Fofana MD, PGY-3 General Surgery [facility] Associated attestation - Rosales Camacho MD - 01/02/2024 12:29 AM EST I saw and evaluated the patient today. I have reviewed the trainee note and agree. 68y F admitted to [facility] for evaluation of severe lethargy with presyncope. Workup revealed a large right hilar mass with possible pleural nodules/masses and effusion. IR attempted biopsy with minimal bloody fluid return. Bronch with EBUS and biopsy done 12/30, and results still pending. Patient transferred for evaluation for possible VATS due to the complex nature of the effusion and ability to drain it. Patient currently has been stable, weaned to room air from 3L. Discussed with patient that atthis time she is stable and we need the results of the EBUS biopsy from [facility] to determine the appropriate treatment plan. If patient has decline in respiratory function may need preliminary intervention for drainage of pleural space. Please contact thoracic surgery when biopsy results from EBUS are available. Rosales Camacho MD documented in this encounter Nursing Notes * Jessenia Oshea, KHUSHBOO - 01/13/2024 2:32 PM EST NURSING AMBULATION OXYGEN TEST [address] [address] Name: Troy Walsh Location: [facility] A569/B Date: 01/13/2024 Time: 2:33 PM Date of test: 01/13/2024 (needs to be completed within 48 hours of discharge) O2 saturation on room air at rest: 87 % O2 saturation at rest is less than or equal to 88 %: yes; O2 was applied at 1 liters nasal cannula to improve saturations to 92 % while at rest O2 saturation on room air during ambulation: 86 % O2 saturation during ambulation is less than or equal to 88 %: yes; O2 was applied at 2 liters nasal cannula to improve saturations to 92 % while ambulating * Roberta Campos RN - 01/12/2024 6:28 PM EST Patient was up and walking back from the bathroom started complaining of increased SOB. Spo2 noted to be 87% on room air. Patient placed on 3L nasal cannula and is now at 99%. Dr. Reza Dee made aware. No new orders at this time. * Antonina Linder RN - 01/12/2024 5:25 PM EST SBAR FOR POST INTERVENTIONAL RADIOLOGY PROCEDURE Patient Name: Troy Walsh Age:[age] year old Sending to: AP5 Procedure: Left Lung Nodule Biopsy Medications Administered: yes: 1 mg versed, lidocaine Special Instructions: Please monitor patient for any signs of increased pneumothorax such as increased shortness of breath or coughing up harris blood. Small amount of blood is okay. Dressing may be removed in 24-48 hours. Chest x- ray should be obtained 2 hours post op (around 7:20 PM) with patient sitting upright. Order placed by IR provider. Roberta Dumont RN made aware via TT. Concerns: no Report from: Antonina Phone extension: [phone] Patient sent via: Bed Reason for SBAR handoff: Transfer Patient meets discharge criteria for Interventional Radiology. Vital signs stable. Dressing clean, dry, and intact. Patient awake and oriented to pre procedure baseline. Patient with no nausea/vomiting. All belongings sent with patient. Vital Signs: BP: 116/81 (01/12/24 1720) Temp: 35.9 C (96.6 F) (01/12/24 172) Pulse: 106 (01/12/24 172) Resp: 24 (01/12/24 172) SpO2: 93 % (01/12/24 172) Glucose (Bedside): 92 (01/12/24 1014) Weight: 90.1 kg (198 lb 10.2 oz) (01/08/24 0800) Height: 170.2 cm (5' 7") (12/31/23 1147) Neurological: [place] Coma Scale Eyes Open: Spontaneous (01/12/241719) Best Verbal Response: Verbally appropriate for age (01/12/24 172) Best Motor Response: Obeys commands appropriate for age (01/12/24 172) Coma Score: 15 (01/12/241719) Activity: Four Extremities LOC: Fully Awake or Pre-Anesthetic Level of Consciousness BP: Less than (+/-) 20% Resp: Deep Breathe and Cough Freely (1708) Respiratory: Pain Assessment Flowsheet Row Most Recent Value Pain Assessment Scale [facility] Adult Scale 0-10 Pain Score 0 (no pain) FLACC Total 0 PAINAD Total 0 Lines: Supplemental Airway Natural;Oral pharyngeal airway;NRB (Active) Number of days: 8 Peripheral Line Lower;Right 20 Gauge (Active) Status Capped/Locked;Flushes easily;Positive blood return 01/12/24 154 Tubing Changed N/A 01/12/24 154 Phlebitis Scale 0 01/12/24 1540 Infiltration Scale 0 01/12/24 1540 Site Description (Other) Without redness, swelling or drainage 01/12/24 1540 Site Intervention Flushed 01/12/24 1540 Dressing Assessment Dressing clean, dry, and intact 01/12/24 1540 Dressing Intervention Applied 01/12/24 1540 Number of days: 0 Chest Tube Right;Lower;Lateral Chest (Active) Status No air leak 01/12/24 0830 Suction Water Seal 01/12/24 0830 Site Description Without redness, swelling or drainage 01/12/24 0830 Dressing Assessment Sanguineous drainage 01/12/24 0830 Description of Output Sanguineous 01/12/24 0830 Dressing Intervention None required 01/12/24 0830 Output (mL) 170 mL 01/12/24 0630 Number of days: 8 Chest Tube Right;Lower;Lateral Chest (Active) Status No air leak 01/12/24 0830 Suction Water Seal 01/12/24 0830 Site Description Without redness, swelling or drainage 01/12/24 0830 Dressing Assessment Sanguineous drainage 01/12/24 0830 Description of Output Sanguineous 01/12/24 0830 Dressing Intervention None required 01/12/24 0830 Output (mL) 40 mL 01/11/24 0600 Number of days: 8 * Antonina Linder RN - 01/12/2024 4:20 PM EST grey stock recorder note Name: Troy Walsh Date: 01/12/2024 Procedure: Left Lung Nodule Biopsy Patient ID band checked using two identifiers. Patient placed on procedure table, supine position, with comfort measures intact and safety strap in place. Hemodynamic monitoring placed and initiated.Patient denies any complaints at current time. RT staff preps for procedure. 4:20 PM Initial counselling psychologist images obtained. Grid placed and scanned. 1 mg of Versed given per order of physician. Order was verbalized and verified with Dr. Malu Gupta prior to administration. 4:22 PM Timeout performed by Dr. Malu Gupta. 4:30 PM Procedure started by Dr. Malu Gupta. 1% buffered lidocaine given. Needle being placed.Images obtained. 4:33 PM Needle adjusted. Images obtained. 4:35 PM Needle adjusted. Images obtained. 4:42 PM Biopsy obtained. Specimens handed to cytology. 4:45 PM Biopsy obtained. Specimens handed to cytology. 4:47 PM Images obtained. 4:50 PM Biopsy obtained. Specimens handed to cytology. 4:52 PM Biopsy obtained. Specimens handed to cytology. 5:07 PM Blood patch given through access. Access removed and manual pressure to site. 5:08 PM Hemostasis obtained. Area cleaned. Gauze and tegaderm dressing applied. Final image obtained. Specimens taken by Stefanie cytology staff. Patient tolerated procedure well without complications. All wires, catheters, sheaths and other devices have been inspected prior to the procedure for damage. This has been confirmed by the scrubbed RT and the operating physician. All items not intended to remain in the patient have been inspected, accounted for and have been removed from the patient atthe end of the procedure. This has been confirmed by the scrubbed RT and the operating physician. Pt did not receive conscious sedation for their procedure. Total medications given Versed: 2 mg 1% buffered lidocaine: 4 mL Please see doctor's operative note for additional details. * Roberta Campos RN - 01/12/2024 11:15 AM EST INPATIENT TO INTERVENTIONAL RADIOLOGY (IR) HANDOFF COMMUNICATION NOTE [facility] [address] [facility] [id number] Name: Troy Walsh Age: [age] year old Location: [facility] A569/B Date: 01/12/2024 Safety Concerns: None Allergies: Penicillins and Sulfa antibiotics Contrast Dye Allergy? no Allergy prepped? N/A Code Status: Full Code Isolation: NO Report from: Roberta Campos RN at phone extension [phone] Patient arriving via: Bed Reason for SBAR handoff: Procedure Patient is alert and oriented and able to sign consent (if not, manager personnel selection and number): Yes Patient NPO: yes Patient NPO since: midnight Patient wears CPAP, BiPAP, or oxygen overnight: no Patient has difficulty breathing when lying flat? yes Emotional/Personal Anxiety? no Last as needed pain medication given at (time): 50mg of Tramadol @ 0149 Situation/Background Admission date: 12/31/2023 Patient Service: Med [facility], Located Within [facility] [[id number]] Attending Provider: Tavia Ward MD Admitting diagnosis: Mass of right lung Pleural effusion Chief Complaint: No chief complaint on file. Problem list: Principal Problem: Mass of right lung Active Problems: Acute hypoxic respiratory failure (HCC) Uncomplicated asthma Prediabetes HTN, goal below 130/80 Stage 3b chronic kidney disease (HCC) Dyslipidemia Lymph node enlargement Hemothorax on right Resolved Problems: * No resolved hospital problems. * Level of Care: Med Surg [3] Vital Signs: BP: 126/54 (01/12/24 08) Temp: 36.5 C (97.7 F) (01/12/24 08) Pulse: 81 (01/12/24 0800) Resp: 19 (01/12/24 08) SpO2: 93 % (01/12/24 1100) Glucose (Bedside): 92 (01/12/24 1014) Weight: 90.1 kg (198 lb 10.2 oz) (01/08/24 0800) Height: 170.2 cm (5' 7") (12/31/23 1147) Labs: Please see Lab Flowsheet for lab values. Lab comments: no Lines: Supplemental Airway Natural;Oral pharyngeal airway;NRB (Active) Number of days: 8 Peripheral Line Lower;Right 22 Gauge (Active) Status Capped/Locked;Flushes easily;Alcohol disinfectant cap 01/12/24829 Tubing Changed N/A 01/12/24829 Phlebitis Scale 0 01/12/24829 Infiltration Scale 0 01/12/24829 Site Description (Other) Without redness, swelling or drainage 01/12/24829 Site Intervention Flushed 01/12/24829 Dressing Assessment Dressing clean, dry, and intact 01/12/24829 Dressing Intervention None required 01/12/24829 Dressing Change Due 01/14/24 01/09/24 0000 Number of days: 12 Chest Tube Right;Lower;Lateral Chest (Active) Status No air leak 01/12/24829 Suction Water Seal 01/12/24829 Site Description Without redness, swelling or drainage 01/12/24829 Dressing Assessment Sanguineous drainage 01/12/24829 Description of Output Sanguineous 01/12/24829 Dressing Intervention None required 01/12/24829 Output (mL) 170 mL 01/12/24629 Number of days: 8 Chest Tube Right;Lower;Lateral Chest (Active) Status No air leak 01/12/24829 Suction Water Seal 01/12/24829 Site Description Without redness, swelling or drainage 01/12/24829 Dressing Assessment Sanguineous drainage 01/12/24829 Description of Output Sanguineous 01/12/24829 Dressing Intervention None required 01/12/24829 Output (mL) 40 mL 01/11/24 06 Number of days: 8 Fall Scale: Fall Score: 50 (01/12/24829) Fall Interventions: Bed at low level;Bed alarm on;Yellow armband applied/intact and on patient;Fallrisk sign above bed;Fall risk sign outside room;Non-skid foot covering on;Floor free of clutter;Walk path free of obstacles (01/12/24829) Neurological: [place] Coma Scale Eyes Open: Spontaneous (01/12/24829) Best Verbal Response: Verbally appropriate for age (01/12/24829) Best Motor Response: Obeys commands appropriate for age (01/12/24829) Coma Score: 15 (01/12/24829) Additional Neurological Information: no Respiratory: Respiratory WNL: WNL- within normal limits (01/12/24829) Cough: None (01/12/24829) Depth/Rhythm: Regular (01/12/24829) Dyspnea Occurance: None (01/12/24829) Effort: Unlabored (01/12/24829) Effort Characteristics: Abdominal Muscle Use (01/08/242251) Left Breath Sounds: Diminshed (01/08/242251) Right Breath Sounds: Diminished (01/08/242251) Oxygen therapy/ Mechanical vent O2 %: 96 % (01/07/247) O2 flow rate: 0 L/MIN (01/12/24 1100) Supplemental O2 Delivery: Room Air, None (01/12/241099) O2 Device Skin Integrity : Skin unaffected (01/08/24800) Interventions: Tubing adjusted (01/07/24899) O2 flow rate: 0 L/MIN (01/12/24 1100) Additional Respiratory Information: no Cardiac: Cardiovascular WNL: WNL - within normal limits (01/12/24829) Heart Sounds: S1;S2 (01/12/24829) Rhythm: Regular (01/12/24799) MA interval: 0.2 seconds (01/08/24799) QRS: 0.08 seconds (01/08/24799) Extremities: +Sensation;Right;Left;Lower;Upper;Moville;Warm (01/12/24829) Pulses Right: Dorsalis Pedis +;Radial + (01/12/24829) Pulses Left: Dorsalis Pedis +;Radial + (01/12/24829) Edema Location: Lower extremities;Both (01/12/24829) Edema Assessment: +1 - Description (01/12/24829) Capillary Refill: 3 sec (01/12/24829) Additional Cardiac Information: no GI/: GI WNL: WNL - within normal limits (01/12/24829) Abdomen: Soft;Non-distended;Non-tender (01/12/24829) Bowel Sounds: All Quadrants;Present (01/12/24829) Additional GI/ Information: no Integumentary: Integumentary WNL: WNL - within normal limits (01/12/24829) Skin Description: Dry;Edematous;Warm (01/12/24829) Skin Color: Flesh Tone (01/12/24829) Skin Lesion: Other - Describe (See below) (01/10/24 07) Francisco Score (auto-calculation): 19 (01/12/24829) Skin Breakdown: Yes - Other bony prominence (R elbow) (01/04/24 0941) Skin Breakdown (including Red, Non-Blanchable Areas) Present on Admission?: No (12/31/23 1505) Additional Integumentary Information: no Restraints: No orders of the defined types were placed in this encounter. Filomena Street RN - 01/04/2024 5:23 PM EST Dual Licensed Skin Assessment completed by Filomena CUELLO and Pedrito CUELLO. The patient is/has a N/A Skin Breakdown (includes non blanchable erythema): Yes. Wound Type: Suspected pressure injury at bony prominence, location Right elbow Nursing interventions: Allevyn dressing in place -- keep right arm elevated on pillows. Monitor as necessary. Turn pt in bed every 2 hours to change position. Filomena Street RN - 01/04/2024 5:05 PM EST PERIOP TO IP HANDOFF COMMUNICATION NOTE [address] [address] Name: Troy Walsh AGE: [age] year old Location: OR [facility]/OR Date: 01/04/2024 Attention to: Homero Grewal LPN Report from: Filomena Tovar RN Patient arriving via: Bed Time of call: 5:06 PM Phone Ext: [phone] Reason for SBAR (Situation, Background, Assessment, Recommendation) handoff: OR Sending to: A569 Emotional/Personal Events & Special Needs: PT HAS BEEN SNORING (SLEEPING) BUT DOES AROUSE EASILY. SHE DENIES PAIN. Prescriptions in chart: No Code Status: Full Code Safety Concerns: no safety concerns identified Allergies: Penicillins and Sulfa antibiotics PMH:No past medical history on file. PSH: No past surgical history on file. Isolation: Isolation: Procedure: flexible bronchoscopy, Right VATS, exploration, pleural biopsies, evacuation hemothorax,washout chest Type of Anesthesia: General endotracheal anesthesia Block: NA IV intake: 2200 mL EBL: OR: 900 mL PACU: 330 mL Urine output: OR 400 mL PACU 0 mL IUBC (Jackson): Incision location: RIGHT CHEST WALL Dressing location: SAME Time of last skin assessment: 1700 Pressure injuries or areas of concern: RIGHT ELBOW Lines: Supplemental Airway Natural;Oral pharyngeal airway;NRB (Active) Number of days: 0 Peripheral Line Lower;Right 22 Gauge (Active) Status Capped/Locked 01/04/24 1500 Tubing Changed N/A 01/04/24 1500 Phlebitis Scale 0 01/04/24 1500 Infiltration Scale 0 01/04/24 1500 Site Description (Other) Without redness, swelling or drainage 01/04/24 1500 Site Intervention None required 01/04/24 1500 Dressing Assessment Dressing clean, dry, and intact 01/04/24 1500 Dressing Intervention None required 01/04/24 1500 Number of days: 4 Peripheral Line Right Wrist 18 Gauge (Active) Status Fluids infusing 01/04/24 1500 Tubing Changed N/A 01/04/24 1500 Phlebitis Scale 0 01/04/24 1500 Infiltration Scale 0 01/04/24 1500 Site Description (Other) Without redness, swelling or drainage 01/04/24 1500 Site Intervention None required 01/04/24 1500 Dressing Assessment Dressing clean, dry, and intact 01/04/24 1500 Dressing Intervention None required 01/04/24 1500 Number of days: 0 CVC Single Lumen Left External jugular (Active) Status Capped/Locked 01/04/24 1500 Tubing Changed N/A 01/04/24 1500 Site Description Without redness, swelling or drainage 01/04/24 1500 Site Intervention None required 01/04/24 1500 Dressing Assessment Dressing clean, dry, and intact 01/04/24 1500 Dressing Intervention None required 01/04/24 1500 Number of days: 0 Chest Tube Right;Lower;Lateral Chest (Active) Status Fluctuating;1 01/04/24 1618 Suction -20 cm H2O 01/04/24 1618 Site Description Serosanguineous drainage 01/04/24 1618 Dressing Assessment Serosanguineous drainage;Moderate 01/04/24 1618 Description of Output Serosanguineous 01/04/24 1618 Dressing Intervention Reinforced 01/04/24 1618 Number of days: 0 Chest Tube Right;Lower;Lateral Chest (Active) Status Fluctuating;1 01/04/24 1618 Suction -20 cm H2O 01/04/24 1618 Site Description Without redness, swelling or drainage 01/04/24 1442 Dressing Intervention Applied 01/04/24 1442 Number of days: 0 Vital Signs: BP: 115/53 (01/04/24 1515) Temp: 37.5 C (99.5 F) (01/04/24 1500) Pulse: 92 (01/04/24 1510) Resp: 17 (01/04/24 1510) SpO2: 97 % (01/04/24 1515) O2 flow rate: 10 L/MIN (01/04/24 1515) Time of last pain medication: 1431 Med: DILAUDID Time of last antibiotic: 1159 Med: ANCEF Time of last antiemetic: 1431 Med: ZOFRAN SUBASSEMBLER: no Drips: no Neurological: Neuro WNL: X - Exceptions to WNL as documented below (01/04/24 0734) Speech: Clear (01/04/24 0922) Level of Consciousness: Alert (01/04/24 161) RUE Motor Strength: 5-Active movement with full resistance (01/04/24 1500) RLE Motor Strength: 0-No movement or muscle contraction (01/04/24 1500) LUE Motor Strength: 5-Active movement with full resistance (01/04/24 1500) LLE Motor Strength: 0-No movement or muscle contraction (01/04/24 1500) Coma Score: 10 (01/04/24 1500) Respiratory: Respiratory WNL: WNL- within normal limits (01/04/241610) Cough: None (01/04/241610) Depth/Rhythm: Regular (01/04/24 161) Dyspnea Occurance: None (01/04/241610) Effort: Unlabored (01/04/241610) Effort Characteristics: Abdominal Muscle Use;Other (comment) (snoring) (01/04/241610) Left Breath Sounds: Clear (01/04/24 161) Right Breath Sounds: Diminished (01/04/241610) Oxygen therapy/ Mechanical vent O2 %: 97 % (01/01/24 0250) O2 flow rate: 10 L/MIN (01/04/24 151) Supplemental O2 Delivery: Non-rebreather Mask (01/04/24 151) O2 Device Skin Integrity : Skin unaffected (12/31/231999) Interventions: Tubing adjusted (12/31/231999) Cardiac: Cardiovascular WNL: WNL - within normal limits (01/04/241609) Heart Sounds: S1;S2 (01/04/24 0734) Rhythm: NSR (01/04/241609) Extremities: +Sensation;Right;Left;Warm;Upper;Lower;Moville (01/04/241609) Pulses Right: Dorsalis Pedis +;Palpable;Post Tibial + (01/04/24 1500) Pulses Left: Dorsalis Pedis +;Palpable;Post Tibial + (01/04/24 1500) Edema Location: Lower extremities (01/04/24921) Edema Assessment: +1 - Description (01/04/24921) Capillary Refill: 3 sec (01/04/241609) GI: GI WNL: WNL - within normal limits (01/04/241609) Abdomen: Soft;Non-tender (01/04/241609) Bowel Sounds: Present;Regular;All Quadrants (01/03/241999) : WNL: WNL - within normal limits (01/04/24 160) Due to Void: 2100 Integumentary:Integumentary WNL: WNL - within normal limits (01/04/241612) Skin Description: Dry (01/04/241612) Francisco Score (auto-calculation): 22 (01/03/241999) Family updated on transfer: yes Additional Assessment Information: I HAD TO PLACE THE O2/NC IN HER MOUTH SINCE SHE IS A MOUTH BREATHER. HER OXYGEN SATS HAVE BEEN 96% SHE WAKES UP EASILY BUT FALLS BACK TO SLEEP. A BRACHIAL BREEZY WASD/C IN LEFT ARM W/O ANY ASSESSED PROBLEMS. THE BRUISING WAS ALREADY THERE FROM IV'S AND BLOOD DRAWS. ALL LABS WERE DONE IN THE OR SO DID NOT DRAW ANY LABS POST OP. I CHECKED WITH THE SERVICES. CXR WAS COMPLETED. THERE ARE 2 CHEST TUBES PRESENT. * Leela Christopher RN - 01/04/2024 10:04 AM EST Dual Licensed Skin Assessment completed by Leela Glynn and Penelope Joseph. The patient is/has a N/A Skin Breakdown (includes non blanchable erythema): Yes. Wound Type: Suspected pressure injury at bony prominence, location R elbow Wound Ostomy Nurse Notified: No - care per ordered treatment Nursing interventions: foam dressing * Olu Grewal LPN - 01/04/2024 8:27 AM EST IP TO PERIOP HANDOFF COMMUNICATION NOTE [facility] [address] Name: Troy Walsh AGE: [age] year old Location: [facility] A569/B Date: 01/04/2024 Attention to: Pacu Report from: Olu Grewal LPN Patient arriving via: Bed Time of Call: 8:28 AM Phone Ext.: [phone] Reason for SBAR handoff: Procedure/Diagnostic/Treatment Consent: Emotional/Personal Events & Special Needs: N/a Allergies: Patient has no known allergies. PMH:No past medical history on file. PSH: No past surgical history on file. Isolation: Situation/Background Admission Date: 12/31/2023 Patient Service: Med Purple Attending: Susan Franks MD Level of Care: Med Surg [3] Assessment Vital Signs: BP: 133/62 (01/04/24733) Temp: 37.4 C (99.3 F) (01/04/24733) Pulse: 98 (01/04/24733) Resp: 16 (01/04/24733) SpO2: 93 % (01/04/24733) O2 flow rate: 0 L/MIN (01/04/24399) Lines: Peripheral Line Lower;Right 22 Gauge (Active) Status Capped/Locked;Alcohol disinfectant cap 01/04/24399 Tubing Changed N/A 01/04/24399 Phlebitis Scale 0 01/04/24399 Infiltration Scale 0 01/04/24399 Site Description (Other) Without redness, swelling or drainage 01/04/24399 Site Intervention None required 01/04/24399 Dressing Assessment Dressing clean, dry, and intact 01/04/24399 Dressing Intervention None required 02/21/24 0400 Number of days: 4 Restraints: No orders of the defined types were placed in this encounter. Labs: Please see Lab Flowsheet for lab values. Lab Comments: n/a Diet: Orders Placed This Encounter Procedures NPO After 2400 Except Meds NPO After 2400 Except Meds NPO After 2400 Except Meds NPO: Additional Diet Information: npo except Mn Intake and Output: Intake/Output Summary (Last 24 hours) at 01/04/2024 0827 Last data filed at 01/04/2024 0629 Gross per 24 hour Intake 477.66 ml Output -- Net 477.66 ml Belongings Remaining with Patient: glasses What were AM meds taken with: water Time of last pain medication: 12/16/23 1609 Med: Tylenol Time of last antibiotic: n/a Med: n/a Time of last skin assessment: 0800 Pressure injuries or areas of concern: n/a general edema Neurological: Neuro WNL: X - Exceptions to WNL as documented below (01/03/241999) Speech: Clear (01/03/241999) Level of Consciousness: Alert (01/03/241999) RUE Motor Strength: 5-Active movement with full resistance (01/03/241999) RLE Motor Strength: 4-Active movement with some resistance (01/03/241999) LUE Motor Strength: 5-Active movement with full resistance (01/03/241999) LLE Motor Strength: 4-Active movement with some resistance (01/03/241999) Coma Score: 15 (01/03/241999) Respiratory: Respiratory WNL: WNL- within normal limits (01/03/241999) Cough: None (01/03/24 0800) Depth/Rhythm: Regular (01/03/241999) Dyspnea Occurance: None (01/03/241999) Effort: Unlabored (01/03/241999) Right Breath Sounds: Diminished (01/03/241999) Oxygen therapy/ Mechanical vent O2 %: 97 % (01/01/24 0250) O2 flow rate: 0 L/MIN (01/04/24 0400) Supplemental O2 Delivery: Room Air, None (01/04/24 0734) O2 Device Skin Integrity : Skin unaffected (12/31/231999) Interventions: Tubing adjusted (12/31/231999) Cardiac: Cardiovascular WNL: X - Exceptions to WNL as documented below (01/03/241999) Heart Sounds: S1;S2 (01/03/241999) Rhythm: Regular (01/04/24 0400) Extremities: +Sensation;Right;Left;Upper;Lower;Moville;Warm (01/03/241999) Pulses Right: Dorsalis Pedis +;Radial + (01/03/241999) Pulses Left: Dorsalis Pedis +;Radial + (01/03/241999) Edema Location: Generalized (01/03/241999) Edema Assessment: +1 - Description (01/03/241999) Capillary Refill: 2 sec (01/03/241999) GI: GI WNL: WNL - within normal limits (01/03/241999) Abdomen: Soft;Non-distended;Non-tender (01/03/241999) Bowel Sounds: Present;Regular;All Quadrants (01/03/241999) : WNL: WNL - within normal limits (01/03/241999) Integumentary: Integumentary WNL: WNL - within normal limits (01/03/24 08) Francisco Score (auto-calculation): 22 (01/03/241999) Additional Assessment Information: n/a documented in this encounter OR Notes * OR Surgeon - Shorty Hidalgo MD - 01/04/2024 2:21 PM EST Images from the original note were not included. [place] [address] [address] [facility] [id number] OPERATIVE REPORT Name: Troy Walsh Date: 01/04/2024 Time: 2:21 PM Location: OR [facility] Service: Thoracic Surgery Date of Operation: 01/04/2024 Pre-op Diagnosis: right lung mass, hemorrhagic pleural effusion Post-op Diagnosis: same Surgeon: Shorty Hidalgo MD Co-Surgeon: none Assistants: Jenny Licona PGY-3 Anesthesia: General endotracheal - Double lumen tube Operation: flexible bronchoscopy, Right VATS, exploration, pleural biopsies, evacuation hemothorax,washout chest Pathology: Right pleural biopsy #1- benign Right pleural biopsy #2- benign Specimens: Right pleural biopsy #1 Right pleural biopsy #2, Right pleural biopsy #3, Right upper lobe wedge Right pleural effusion Indications and History: The patient is a 68 year old female who presented to outside hospital with presyncopal episode and 10 lb weight loss over last [address] chest was performed which showed bilateral lung nodules, large interlobar hemorrhagic lung mass, and hemorrhagic pleural effusion with possible pleural implants. She had bronchoscopy and EBUS at outside hospital. Per chart review, the large hemorrhagic mass was hypervascular on ultrasound and fluid sampling was mostly blood products. She was transferred to [facility] for consideration of possible VATS. I saw patient. I agreed with VATS to try and accomplish two goals. One, to evacuate hemothorax as much as possible, and two to try and obtain tissue for diagnosis. We discussed risks including infection, bleeding, damage to surrounding structures, air leaks, benign disease, arrhythmias, heart attack , blood clots, stroke , and . Patient was agreeable and signed informed consent. Mancuso Findings: hemorrhagic process throughout right chest only the apex of the chest was relatively spared where normal appearing lung could be seen. There was a large amount of blood clots in the lower chest. There was a large purple mass in the area of the minor fissure/anterior major fissure. There appeared to be a pleural based mass in the area of the posterior upper lobe. The base of the lower lobe was incompletely visualized as well as thediaphragm. All tissues were exteremly friable and bleed easily. Blood clots and adhesions Suspected dominant mass in area of anterior major fissure/minor fissure as seen through anterior thoracotomy incision Estimated Blood Loss: 900 ml Drains: 28 chest tube x 2 The most posterior tube in body is directed anterior In chest with tip in apex The anterior tube on body is directed posteriorly Complications: none apparent Description of Operation: The patient was taken to the operative suite and placed supine on the operating room table. Generalendotracheal anesthesia was induced. Preoperative antibiotics were given. A timeout was performed and all in attendance agreed to the correct patient, procedure, and laterality. A bronchoscopy was performed. The anatomy appeared normal and I did not see endobronchial lesions. The airways were patent to a segmental level. The patient was placed in the left lateral decubitus position and the right chest prepped and draped into a sterile field. An inferior camera port was created. We were initially in an ocean of formedblack clot. This was carefully and slowly removed with ring forceps and suctioning. This exposed part of what appeared to be lung with a fibrotic peel. We continued evacuating blood clots from the posterior chest toward the apex of the chest. The posterior lung which I assumed was upper lobe was cemented to the chest wall. In this area, there was a very thick abnormal appearing rind around. I attempted to biopsy a piece of this, but was met with bleeding which was stopped with cautery. Using blunt dissection the lung was brushed off the chest wall anteriorly and blood clots were suctioned. This allowed me to create an inferior anterior port to help with retraction in suctioning. More clots were suctioned from the lateral chest. This exposed a bulge in the mid chest and exposed a lyles-purple structure that appeared somewhat different than the blood clots. This bulge was adherent to the lateral chest wall and I had a difficult timing visualizing around the mass into the apex of the chest. Therefore, I made an anterior working incision which brought me right over top of the this bulge.I was able to use the camera through this incision to look into the apex of the chest. The apical lung was pink but edematous and was the only somewhat normal appearing area in her chest. I brushed the apex of the lung off the chest wall and got into a multiloculated brown effusion that was sampled. Next I took a small wedge of the thick abnormal appearing rind on the posterior upper lobe with a green stapler load. I also took several biopsies of the pleural. I only saw two areas that looked lik e distinct pleural implants but frozen sections were benign. I took several other pleural biopsies for permanent pathology. I then attempted to explore the area of "bulging" a bit more but was met with brisk dark bleeding and I was unclear if this was new blood or old fluid. The amount of fluid wasrather brisk so I extended my anterior working incision to allow for temporarily packing. The camera was inserted inferiorly and the chest was suctioned out. The packing was removed and I did not seeany further bleeding. I could not tell the source of the fluid. The only suspect area was this areaof lyles-purple bulging. I did not want to disturb this area any further and did not want to biopsy it for fear of injuring a major vascular structure. I felt that the patient had already lost a significant amount of blood (>750 ml) at this point so my goals changed to purely obtained adequate hemostasis and terminating the procedure. The chest was irrigated with 3L of sterile water. Hemostasiswas excellent after suctioning the irrigation. Two 28 F chest tubes were placed. The lung was re inflated. Intercostal nerve blocks were applied. The port sites and wounds were closed in standard fashion. The patient was extubated and taken to pacu in stable conditoin. All needle, sharps, sponge and lap pad counts were correct. The patient was taken to the recovery area in stable condition. Patient Condition: stable Attestation: I performed the procedure Shorty Hidalgo MD documented in this encounter Miscellaneous Notes * Ancillary Progress Note - Antonina Kevin RN - 01/13/2024 2:06 PM EST CARE MANAGEMENT - ADULT TRANSITION NOTE [facility] [address] Name: Troy Walsh Location: [facility] A569/B Date: 01/13/2024 Time: 2:06 PM Risk Stratification Readmission Risk Score: 14.49 (01/13/24 1200) AM-PAC Score With Stairs : 17 (01/12/24 0830) Caregiver Information Patient Contacts Name Relation Home Work Mobile Teetee Walsh Sibling [phone] Transition of Care Checklist Narrative: Discussed patient at IDT. Patient admitted with right lung mass now s/p VATS and chest tube. Currently requiring 5lpm oxygen. Likely stable for discharge today. Will fax for new home oxygen when testing/script available. Patient also agreeable to home health at d/c. [facility] placing referrals. CM continue to follow for evolving needs. 1543: Faxed oxygen testing, script and clinicals to [facility]. Large portable tank delivered to patient's room. Anticipated Transportation at Discharge: family Patient/Family Expectations: return home Transition Planning Care Management will continue to monitor and assist with discharge planning needs * Ancillary Progress Note - Antonina Kevin RN - 01/13/2024 2:04 PM EST HOME HEALTH/HOSPICE REFERRAL [facility]ARE MANAGEMENT [address] [address] Referred By: Antonina Kevin RN Admission Date: 12/31/2023 Discharge Date: 01/13/24 Discharge Time: Start Date: 01/20/24 Agency Referred To: [facility] PATIENT INFORMATION: Name: Troy Walsh Address: [address] [place] [id number] : 1955 Phone: There is no home phone number on file. SSN: [id number] County: [place] Caregiver Name: Relationship: Phone: () - Emergency Contacts: Extended Emergency Contact Information Primary Emergency Contact: JillianTeetee Address: [address] [place] [id number] [facility] Mobile Relation: Sibling Bodybuilder needed? No MEDICAL INFORMATION: Principal Diagnosis: Mass of right lung Other Diagnosis: See attached History and Physical Surgery and Dates: Past Surgical History: Procedure Laterality Date Thoracoscopy Surgical Total Pulmonary Decortication Right 01/04/2024 THORACOSCOPY SURGICAL TOTAL PULMONARY DECORTICATION performed by Shorty Hidalgo MD at OR [facility] Diet: Adults: As tolerated Allergies: Penicillins and Sulfa antibiotics Isolation Type: None Activity Restrictions: Activity as tolerated Isolation For: None HOME CARE ORDERS: (Discipline and Frequency): USP for general assessment and evaluation, vital signs, medication teaching and compliance. PT/OT eval and treat Medications Dose, Frequency, & Route: Refer to Physician's Discharge Instructions Equipment and Supplies: N/A Ordering Physician and Contact Information: Dr. Tavia Ward Comments: N/A PCP: PCP: AILIN ZELAYA [address] [place] [id number] D/C Physician: Dr. Tavia Ward Insurance: See attached facesheet. * Communication - Reza Dee MD - 01/12/2024 11:03 PM EST Post-Procedure Check Subjective: Patient doing well post biopsy. Endorses pain in the biopsy spot. Pain regimen adjusted. Chest X-ray with small pneumothorax om theright side without significant interval changes per my interpretation on subsequent chest X-ray. Objective: BP 133/50 | Pulse 109 | Temp 36.8 C (98.2 F) (Tympanic) | Resp 22 | Ht 1.702 m (5' 7") | Wt 90.1 kg (198 lb 10.2 oz) | SpO2 100% | BMI 31.11 kg/m | BSA 2.06 m Constitutional: Conscious, alert, cooperative and in no immediate distress HEENT: NC/AT, Tongue: moist Chest: Good bilateral air entry, Clear to auscultation Heart: S1 S2 audible, rhythm regular, no murmurs, clicks or rubs Procedure: CT guided biopsy of right lung nodule A/P: Troy Walsh is a 68 year old female who underwent CT guided biopsy of right lung nodule Remainder of management per day team note. * Ancillary Progress Note - Gianfranco-Rossana Pascual MSW - 01/12/2024 11:42 AM EST CARE MANAGEMENT - ADULT TRANSITION NOTE [facility] [address] Name: Troy Walsh Location: [facility] A569/B Date: 01/12/2024 Time: 11:42 AM Risk Stratification Readmission Risk Score: 11.8 (01/12/24 0801) AM-PAC Score With Stairs : 17 (01/12/24 0830) Caregiver Information Patient Contacts Name Relation Home Work Mobile Teetee Walsh Sibling [phone] Transition of Care Checklist Narrative: Pt discussed during IDTs and is not medically ready for d/c. CM will continue to addressevolving needs, aid in discharge planning, and provide psychosocial support. Anticipated Transportation at Discharge: sister Patient/Family Expectations: home w/ sister Transition Planning Additional Considerations: Care Management will continue to monitor and assist with discharge planning needs * Care Plan - Roberta Campos RN - 01/12/2024 11:14 AM EST Clinical Goal(s): pt. will remain free from falls (01/12/24 0830) Possible barriers to meeting goal(s)/advancing plan of care: weakness Stability of the patient: Moderately stable - low risk of patient condition declining or worsening Summary regarding today's goal(s): Met: pt. Remained free from falls Recommendations: continue with fall precautions * Progress Notes - Post-Op Global - Monique Wade PA-C - 01/12/2024 9:07 AM EST PROGRESS NOTE - Thoracic Surgery [facility] [address] Name: Troy Walsh Location: [facility] A569/B Date: 01/12/2024 Time: 9:07 AM DIAGNOSIS: Right Lung Mass Hemothorax OPERATION: 01/04 Right VATS Washout with Pleural Biopsies SUBJECTIVE: No major new issues overnight. Denies worsening SOB. Is to have IR biopsy of left lung nodule this afternoon. VITAL SIGNS: Reviewed. Was placed back on 2L NC after sats dropped to 93%. Is now satting 98% on 2LNC with no shortness of breath. TUBES/LINES: Chest Tube 24 Hour Fluid Output: 60 ml Chest Tube Total Fluid Level: 1260 ml Chest Tube Suction: H2O seal only Tidal Motions: minimal Air Leak: none PHYSICAL EXAM: Incisions/Wounds: normal post-op appearance Lungs: normal respiratory effort Heart: normal rate and rhythm Abdomen: normal Extremities: no edema Neuro: awake and alert and grossly intact CXR: none today Chest CT 01/11 - Right hemothorax decreased in volume since chest tube placement, although there is still residualblood products in the right lung/pleural space - Large hemorrhagic mass at right lung base - Multiple solid pulmonary nodules suggestive of metastatic disease LABS: reviewed -- 01/04 surgical pathology and cytology = benign IMPRESSION and PLAN: Right Lung Mass Hemothorax Principal Problem: Mass of right lung (POA: Yes) Active Problems: Acute hypoxic respiratory failure (HCC) (POA: Yes) Uncomplicated asthma (POA: Yes) Prediabetes (POA: Yes) HTN, goal below 130/80 (POA: Yes) Stage 3b chronic kidney disease (HCC) (POA: Yes) Dyslipidemia (POA: Yes) Lymph node enlargement (POA: Yes) Hemothorax on right (POA: Unknown) POA = Present On Admission Pain Management: The patient's pain is well controlled: yes Chest Tube Management: remove right sided chest tubes today Lung Mass Management: -- IR biopsy of left lung mass scheduled for today, , at 1:30PM Wean oxygen as tolerated The patient to be discussed with Dr. Olivera. EMILIE Linder PA-C Thoracic Surgery 01/12/2024 * Progress Notes - Non-Billable - Alis Sanchez CRNP - 01/11/2024 2:19 PM EST Brief Interventional Radiology Progress Note Received request for biopsy of lung mass. Chart and imaging reviewed, discussed with thoracic surgery. Will plan for left upper lobe lung nodule biopsy in IR as schedule permits. Please contact IR with any questions or concerns. * Progress Notes - Post-Op Global - Walt Licona MD - 01/11/2024 5:54 AM EST PROGRESS NOTE - Thoracic Surgery [facility] [address] Name: Troy Walsh Location: [facility] A569/B Date: 01/11/2024 Time: 5:54 AM DIAGNOSIS: Right Lung Mass Hemothorax OPERATION: 01/04 Right VATS Washout with Pleural Biopsies SUBJECTIVE: No major new issues overnight. Denies worsening SOB. Incisional pain well managed with analgesia. VITAL SIGNS: Reviewed. Sating well on RA. TUBES/LINES: Chest Tube 24 Hour Fluid Output: 70 ml Chest Tube Total Fluid Level: 1200 ml Chest Tube Suction: H2O seal only Tidal Motions: minimal Air Leak: none PHYSICAL EXAM: Incisions/Wounds: normal post-op appearance Lungs: normal respiratory effort Heart: normal rate and rhythm Abdomen: normal Extremities: no edema Neuro: awake and alert and grossly intact CXR: none today LABS: reviewed -- 01/04 surgical pathology and cytology = benign IMPRESSION and PLAN: Right Lung Mass Hemothorax Principal Problem: Mass of right lung (POA: Yes) Active Problems: Acute hypoxic respiratory failure (HCC) (POA: Yes) Uncomplicated asthma (POA: Yes) Prediabetes (POA: Yes) HTN, goal below 130/80 (POA: Yes) Stage 3b chronic kidney disease (HCC) (POA: Yes) Dyslipidemia (POA: Yes) Lymph node enlargement (POA: Yes) Hemothorax on right (POA: Unknown) POA = Present On Admission Pain Management: The patient's pain is well controlled: yes Chest Tube Management: keep today Lung Mass Management: -- recommend IR while inpatient The patient was discussed with Dr. Olivera. Walt Licona MD General Surgery Resident, PGY-3 Associated attestation - Schuyler Olivera MD - 01/11/2024 5:49 PM EST I did not see the patient, but I have reviewed the trainee documentation and was readily available on date of service. Chest tube output continues to decrease. IR is now planning for left lung nodule biopsy so we will remove the right-sided tubes tomorrow if output remains low. * Care Plan - Brady Grady RN - 01/11/2024 12:42 AM EST Clinical Goal(s): Patiet will be free of falls during shift (01/10/24 2300) Possible barriers to meeting goal(s)/advancing plan of care: weakness Stability of the patient: Moderately stable - low risk of patient condition declining or worsening Summary regarding today's goal(s): Met: Patient free of falls during shift Recommendations: Continue plan of care. All fall risk preventions are in place * Ancillary Progress Note - Shikha Luong MSW - 01/10/2024 12:28 PM EST CARE MANAGEMENT - ADULT TRANSITION NOTE [address] [address] Name: Troy Walsh Location: [address] Date: Risk Stratification Readmission Risk Score: 10.92 (01/10/24 1200) AM-PAC Score With Stairs : 20 (01/09/24 1900) Caregiver Information Patient Contacts Name Relation Home Work Mobile Teetee Walsh Sibling [phone] Transition of Care Checklist Narrative: Has chest tubes on 2. Plans are home with sister. Hopeful to remove chest tubes and wean02. Will follow. Anticipated Transportation at Discharge: sister Patient/Family Expectations: home Transition Planning Additional Considerations: Care Management will continue to monitor and assist with discharge planning needs * Progress Notes - Post-Op Pattie - Walt Licona MD - 01/10/2024 5:51 AM EST PROGRESS NOTE - Thoracic Surgery [address] [address] Name: Troy Walsh Location: [facility] A569 Date: 01/10/2024 Time: 5:51 AM DIAGNOSIS: Right Lung Mass Hemothorax OPERATION: 01/04 Right VATS Washout with Pleural Biopsies SUBJECTIVE: No major new issues overnight. She's OOB to her bedside chair again. Incisional pain improving, still has pain around chest tube. Denies worsening SOB. VITAL SIGNS: Reviewed. Mild ST 109, resolved. 2L NC. TUBES/LINES: Chest Tube 24 Hour Fluid Output: 105 ml Chest Tube Total Fluid Level: 1130 ml, SS Chest Tube Suction: H2O seal only Tidal Motions: minimal Air Leak: none PHYSICAL EXAM: Incisions/Wounds: normal post-op appearance Lungs: normal respiratory effort Heart: normal rate and rhythm Abdomen: normal Extremities: no edema Neuro: awake and alert and grossly intact CXR: none today LABS: reviewed, pending -- 01/04 surgical pathology and cytology = pending IMPRESSION and PLAN: Right Lung Mass Hemothorax Principal Problem: Mass of right lung (POA: Yes) Active Problems: Acute hypoxic respiratory failure (HCC) (POA: Yes) Uncomplicated asthma (POA: Yes) Prediabetes (POA: Yes) HTN, goal below 130/80 (POA: Yes) Stage 3b chronic kidney disease (HCC) (POA: Yes) Dyslipidemia (POA: Yes) Lymph node enlargement (POA: Yes) Hemothorax on right (POA: Unknown) POA = Present On Admission Pain Management: The patient's pain is well controlled: yes Chest Tube Management: keep today -- awaiting lower volume drainage before removing Lung Mass Management: -- awaiting surgical pathology and cytology -- may need updated CT imaging -- may need additional tissue biopsy depending on path results The patient was discussed with Dr. Olivera. Walt Licona MD General Surgery Resident, PGY-3 Thoracic Surgery - Heart and Vascular [place] Associated attestation - Schuyler Olivera MD - 01/10/2024 3:22 PM EST I did not see the patient, but I have reviewed the trainee documentation and was readily available on date of service. No major new clinical changes reported. Last week's surgical pathology and cytology has all come back as benign (mostly just blood and blood clots). Chest tube output remains low. Recommendations: Since malignancy remains likely, please ask IR to evaluate her for lung nodule biopsy (she has nodules on both sides). We will keep the chest tubes for right now just in case IR would like to try a right-sided biopsy (same side as the tubes), but they may prefer the left side based upon size and location of the particular nodules. Updates reviewed with Dr. Franks who agrees with the plan. * Care Plan - Brady Grady, RN - 01/09/2024 11:55 PM EST Clinical Goal(s): patient will remain free from falls during the night. (01/08/24 2300) Possible barriers to meeting goal(s)/advancing plan of care: weakness Stability of the patient: Moderately stable - low risk of patient condition declining or worsening Summary regarding today's goal(s): Met: Patient free of falls during shifft Recommendations: Continue plan of care.All fall risk preventions in place * Ancillary Progress Note - Alexa Hand RDN - 01/09/2024 12:01 PM EST CLINICAL NUTRITION ADULT RISK ASSESSMENT [address] [address] Name: Troy Walsh Location: [facility] A569/B Date: 01/09/2024 Time: 10:40 PM How patient was identified (select 2): date and Name Troy Walsh is a 68 year old female being assessed for clinical nutrition risk related to extended LOS Primary diagnosis: Right lung mass with concern for metastatic cancer., Other pertinent information: Patient stated appetite good COST CLERK however only fair now as dislikes thehospital food. Would drink [place] Instant Breakfast COST CLERK and receptive to trying orange sherbet cooler Anthropometrics Measurements Admission weight (for dietitians): 89 kg Height: 170.2 cm (5' 7") (12/31/23 1147) Weight: 90.1 kg (198 lb 10.2 oz) (01/08/24 0800) BMI: 31 (12/31/23 1147) Usual Body Weight or EDW for Dialysis Patients: no hx in EHR. Patient not sure but does not feel like she lost weight. Diet: Regular Previously followed diet: regular Food Allergies/Intolerances: none Oral Nutrition Supplement (ONS): none Pertinent medications/vitamins/minerals/supplements: senna, mirlax RISK FACTORS: Adult Energy Intake: No significant decrease Interpretation of Weight Change: No recent/significant weight change Skin: Intact NUTRITION RISK CATEGORY: Nutrition Risk Category: Low/Moderate (0-1 factors) Clinical Nutrition Recommendations: Diet: Continue current nutrition plan NUTRITION INTERVENTION/PLAN: Continue current care plan Will add [place] Sherbet Cooler (315 Kcal and 10 gm protein per 240 mL) daily Will follow and adjust nutritional plan as medical condition requires. Please contact for change(s)in patient condition requiring earlier intervention. Alexa Hand, MS, RD, LDN, FNKF Clinical Dietitian [facility] Extension: [phone] [place] Text * Ancillary Progress Note - Shikha Luong MSW - 01/09/2024 9:53 AM EST CARE MANAGEMENT - ADULT TRANSITION NOTE [address] [address] Name: Troy Walsh Location: [address] Date: 01/09 Risk Stratification Readmission Risk Score: 11.62 (01/09/24 0800) AM-PAC Score With Stairs : 20 (01/09/24 0800) Caregiver Information Patient Contacts Name Relation Home Work Mobile Teetee Walsh Sibling [phone] Transition of Care Checklist Narrative: Has chest tubes on 2. Plans are home with sister. Hopeful to remove chest tubes and wean02. Will follow. Anticipated Transportation at Discharge: sister Patient/Family Expectations: home Transition Planning Additional Considerations: Care Management will continue to monitor and assist with discharge planning needs * Progress Notes - Post-Op Global - Walt Licona MD - 01/09/2024 6:02 AM EST PROGRESS NOTE - Thoracic Surgery [address] [address] Name: Troy Walsh Location: [facility] A569 Date: 01/09/2024 Time: 6:02 AM DIAGNOSIS: Right Lung Mass Hemothorax OPERATION: 01/04 Right VATS Washout with Pleural Biopsies SUBJECTIVE: No major new issues overnight. She's OOB to her bedside chair again. Reported that she had an episode of mild SOB overnight, now resolved. Incisional pain improving. VITAL SIGNS: Reviewed. Mild ST 102, resolved. 2L NC. TUBES/LINES: Chest Tube 24 Hour Fluid Output: 115 ml Chest Tube Total Fluid Level: 1025 ml Chest Tube Suction: H2O seal only Tidal Motions: minimal Air Leak: none PHYSICAL EXAM: Incisions/Wounds: normal post-op appearance Lungs: normal respiratory effort Heart: normal rate and rhythm Abdomen: normal Extremities: no edema Neuro: awake and alert and grossly intact CXR: none today LABS: reviewed -- 01/04 surgical pathology and cytology = pending IMPRESSION and PLAN: Right Lung Mass Hemothorax Principal Problem: Mass of right lung (POA: Yes) Active Problems: Acute hypoxic respiratory failure (HCC) (POA: Yes) Uncomplicated asthma (POA: Yes) Prediabetes (POA: Yes) HTN, goal below 130/80 (POA: Yes) Stage 3b chronic kidney disease (HCC) (POA: Yes) Dyslipidemia (POA: Yes) Lymph node enlargement (POA: Yes) Hemothorax on right (POA: Unknown) POA = Present On Admission Pain Management: The patient's pain is well controlled: yes Chest Tube Management: keep today -- awaiting lower volume drainage before removing Lung Mass Management: -- awaiting surgical pathology and cytology -- may need updated CT imaging -- may need additional tissue biopsy depending on path results The patient was discussed with Dr. Olivera. Walt Licona MD Resident Physician, PGY-3 Department of General Surgery 01/09/2024 Associated attestation - Schuyler Olivera MD - 01/09/2024 5:34 PM EST I saw and evaluated the patient today. I have reviewed the trainee note and agree. No significant new clinical changes. Low output from the chest tubes -- will remove soon if this trend continues. Awaiting surgical pathology and cytology before determining next steps. Updates reviewed with Troy. All questions answered to apparent satisfaction. * Progress Notes - Post-Op Global - Schuyler Olivera MD - 01/08/2024 10:29 AM EST PROGRESS NOTE - Thoracic Surgery [facility] [place] [address] Name: Troy Walsh Location: [facility] A569/B Date: 01/08/2024 Time: 10:40 AM DIAGNOSIS: Right Lung Mass Hemothorax OPERATION: 01/04 Right VATS Washout with Pleural Biopsies SUBJECTIVE: No major new issues overnight. Her twin sister, Teetee, is in the room with her again today. She's OOB to her bedside chair again, and she tells me she is having a good morning thus far.Denies any new or acute symptoms. VITAL SIGNS: Reviewed. TUBES/LINES: Chest Tube 24 Hour Fluid Output: 110 ml Chest Tube Total Fluid Level: 910 ml Chest Tube Suction: H2O seal only Tidal Motions: minimal Air Leak: none PHYSICAL EXAM: Incisions/Wounds: normal post-op appearance Lungs: normal respiratory effort Heart: normal rate and rhythm Abdomen: normal Extremities: no edema Neuro: awake and alert and grossly intact CXR: normal post-op appearance and no major changes compared to yesterday LABS: reviewed -- 01/04 surgical pathology and cytology = pending IMPRESSION and PLAN: Right Lung Mass Hemothorax Principal Problem: Mass of right lung (POA: Yes) Active Problems: Acute hypoxic respiratory failure (HCC) (POA: Yes) Uncomplicated asthma (POA: Yes) Prediabetes (POA: Yes) HTN, goal below 130/80 (POA: Yes) Stage 3b chronic kidney disease (HCC) (POA: Yes) Dyslipidemia (POA: Yes) Lymph node enlargement (POA: Yes) Hemothorax on right (POA: Unknown) POA = Present On Admission Pain Management: The patient's pain is well controlled: yes Chest Tube Management: keep today -- awaiting lower volume drainage before removing Lung Mass Management: -- awaiting surgical pathology and cytology -- may need updated CT imaging -- may need additional tissue biopsy Updates reviewed with Troy and her twin sister, Teetee. All questions answered to apparent satisfaction. * Progress Notes - Post-Op Global - Schuyler Olivera MD - 01/07/2024 9:49 AM EST PROGRESS NOTE - Thoracic Surgery [facility] [place] [address] Name: Troy Walsh Location: [facility] A569/B Date: 01/07/2024 Time: 10:45 AM DIAGNOSIS: Right Lung Mass Hemothorax OPERATION: 01/04 Right VATS Washout with Pleural Biopsies SUBJECTIVE: No major new issues overnight. Her twin sister, Teetee, is in the room with her today.She is already OOB to the bedside chair, and her nurse was in the room with us as well. VITAL SIGNS: Reviewed. TUBES/LINES: Chest Tube 24 Hour Fluid Output: 210 ml Chest Tube Total Fluid Level: 800 ml Chest Tube Suction: minus 40 cm H2O Tidal Motions: none Air Leak: none PHYSICAL EXAM: Incisions/Wounds: normal post-op appearance Lungs: normal respiratory effort Heart: normal rate and rhythm Abdomen: normal Extremities: no edema Neuro: awake and alert and grossly intact CXR: normal post-op appearance LABS: reviewed -- 01/04 surgical pathology and cytology = pending IMPRESSION and PLAN: Right Lung Mass Hemothorax Principal Problem: Mass of right lung (POA: Yes) Active Problems: Acute hypoxic respiratory failure (HCC) (POA: Yes) Uncomplicated asthma (POA: Yes) Prediabetes (POA: Yes) HTN, goal below 130/80 (POA: Yes) Stage 3b chronic kidney disease (HCC) (POA: Yes) Dyslipidemia (POA: Yes) Lymph node enlargement (POA: Yes) Hemothorax on right (POA: Unknown) POA = Present On Admission Pain Management: The patient's pain is well controlled: yes Chest Tube Management: keep today, remove from suction -- awaiting lower volume drainage before removing Lung Mass Management: -- awaiting surgical pathology and cytology -- may need updated CT imaging -- may need additional tissue biopsy Updates reviewed with Troy and her twin sister, Teetee. All questions answered to apparent satisfaction. * Ancillary Progress Note - Shikha Luong MSW - 01/06/2024 8:57 AM EST CARE MANAGEMENT - ADULT TRANSITION NOTE [address] [address] Name: Troy Walsh Location: [address] Date: 01/06/2024 Time: 10:30 AM Risk Stratification Readmission Risk Score: 13.28 (01/06/24 0801) AM-PAC Score With Stairs : 19 (01/05/241999) Caregiver Information Patient Contacts Name Relation Home Work Mobile Teetee Walsh Sibling [phone] Transition of Care Checklist Narrative: thru weekend. Has 2 chest tubes on 2. Plans are home with sister. Hopeful to remove chest tubes and wean 02. Will follow. Anticipated Transportation at Discharge: sister Patient/Family Expectations: home Transition Planning Additional Considerations: Care Management will continue to monitor and assist with discharge planning needs * Progress Notes - Post-Op Global - Walt Licona MD - 01/06/2024 6:15 AM EST PROGRESS NOTE - Thoracic Surgery [address] [address] Name: Troy Walsh Location: [address] Date: 01/06/2024 Time: 6:15 AM DIAGNOSIS: Right lung mass, c/f malignancy OPERATION: bronchoscopy, R VATS, pleural biopsies, evacuation hemothorax, washout SURGEON: Dr. Hidalgo SUBJECTIVE: Pt sitting in bed comfortably. Pain improved with current regimen. Denies increased SOBor CP this AM. VITAL SIGNS: Reviewed. VS wnl on 2L NC, briefly off NC but had to be placed back on. TUBES/LINES: Chest Tube 24 Hour Fluid Output: 100 cc Chest Tube Total Fluid Level: 590 cc SS Chest Tube Suction: was on waterseal since yesterday afternoon, will be changed to minus 40 cm H2O Tidal Motions: moderate Air Leak: none Chest Tube Removal Date: not removed yet Other Drains: none PHYSICAL EXAM: Incisions/Wounds: dressing dry and intact Lungs: normal respiratory effort Heart: normal rate and rhythm Abdomen: normal Extremities: no edema Neuro: awake and alert and grossly intact CXR: small R PNX, worsened compared to yesterday, [address] LABS: reviewed Cytology and surgical path in process IMPRESSION and PLAN: Pain Management: per primary The patient's pain is well controlled: yes Chest Tube Management: keep today - Will place chest tube back to - 40 suction - AM CXR reviewed and PNX worsened - Recommend PET Scan - Pathology and cytology pending - Encouraged IS/Flutter and OOB - SCDs - Rest per primary - Please reach out with questions or concerns The patient will be discussed with Dr. Hidalgo. Walt Licona MD General Surgery Resident, PGY-3 Thoracic Surgery - Heart and Vascular [place] Associated attestation - Shorty Hidalgo MD - 01/06/2024 1:01 PM EST I saw and evaluated the patient today. I have reviewed the trainee note and agree. ATTENDING ADDENDUM: I have seen, examined, and evaluated this patient, and all imaging studies and records have been personally reviewed by me. I have discussed the case and it's management with the resident/ mid-level providers as documented in the resident/mid-level provider's note on the day of service. POD #2 s/p R VATS, exploration, evacuation hemothorax, pleural biopsies CXR still with large opacity which is mostly the large hilar mass/hematoma. But don't expect this to improve much even with prolonged chest tube placement. All frozen sections sent during intra-op exploration were benign. Permanent pathology pending. Priority Is obtaining tissue diagnosis even if OR samples are benign her imaging is concerning for malignancy/metastatic disease (especially the solid bilateral lung nodules). -continue chest tubes to suction for now -follow up surgical pathology -would recommend IR CT guided right lung nodule biopsy if pathology is benign. I think this would be safer as inpatient with chest tubes in place as clearly there is bleeding risk Shorty Hidalgo MD * Care Plan - Carmen Vásquez RN - 01/06/2024 4:06 AM EST Clinical Goal(s): Pt will remain free of falls/ injury (01/05/24 2300) Possible barriers to meeting goal(s)/advancing plan of care: Generalized weakness; Chest tube x 2 Stability of the patient: Moderately stable - low risk of patient condition declining or worsening Summary regarding today's goal(s): Met: Pt currently free from falls/ injury Recommendations: Continue current safety monitoring/ parameters * Ancillary Progress Note - Alexa Hand RDN - 01/05/2024 1:41 PM EST Patient triggered for skin breakdown present on admission. . Patient has surgical/procedural changes only. Not nutritionally signficant. No intervention at this time Alexa Hand, MS, RD, LDN, FNKF Clinical Dietitian [facility] Extension: [phone] [address] Text * Progress Notes - Post-Op Global - Walt Licona MD - 01/05/2024 7:24 AM EST PROGRESS NOTE - Thoracic Surgery [address] [address] Name: Troy Walsh Location: [facility] A569/B Date: 01/05/2024 Time: 7:24 AM DIAGNOSIS: Right lung mass, c/f malignancy OPERATION: bronchoscopy, R VATS, pleural biopsies, evacuation hemothorax, washout SURGEON: Dr. Hidalgo SUBJECTIVE: Pt sitting in bed comfortably. Denies CP. Has moderate incisional pain but would rathernot have oxycodone, plans to try tramadol. Tolerating CLD. VITAL SIGNS: Reviewed. VS wnl on 2L NC. TUBES/LINES: Chest Tube 24 Hour Fluid Output: 490 cc Chest Tube Total Fluid Level: 490 cc SS, more sanguinous Chest Tube Suction: minus 20 cm H2O Tidal Motions: moderate Air Leak: none Chest Tube Removal Date: not removed yet Other Drains: none PHYSICAL EXAM: Incisions/Wounds: dressing dry and intact Lungs: normal respiratory effort Heart: normal rate and rhythm Abdomen: normal Extremities: no edema Neuro: sleeping CXR: large effusion on right, [address] LABS: reviewed IMPRESSION and PLAN: Pain Management: per primary The patient's pain is well controlled: yes Chest Tube Management: keep today - Keep chest tube to - 20 suction - AM CXR reviewed and stable -- Will need AM CXR tomorrow, 01/06 - Ok for regular diet - Recommend PET Scan - Pathology pending - Encouraged IS/Flutter and OOB - SCDs - Rest per primary - Please reach out with questions or concerns The patient will be discussed with Dr. Olivera. Walt Licona MD General Surgery Resident, PGY-3 Thoracic Surgery - Heart and Vascular [place] Associated attestation - Schuyler Olivera MD - 01/05/2024 2:45 PM EST I did not see the patient, but I have reviewed the trainee documentation and was readily available on date of service. No major new problems since surgery yesterday. Keep chest tubes for now. Await new surgical pathology. * Progress Notes - Non-Billable - Walt Licona MD - 01/04/2024 8:12 PM EST PROGRESS NOTE - Thoracic Surgery [facility] [address] Name: Troy Walsh Location: [facility] A569/ Date: 01/04/2024 Time: 8:12 PM DIAGNOSIS: Right lung mass, c/f malignancy OPERATION: bronchoscopy, R VATS, pleural biopsies, evacuation hemothorax, washout SURGEON: Dr. Hidalgo SUBJECTIVE: Pt sleeping comfortably. VS wnl. MARIXA since surgery. VITAL SIGNS: Reviewed. TUBES/LINES: Chest Tube 24 Hour Fluid Output: 380 cc Chest Tube Total Fluid Level: 380 cc SS, more sanguinous Chest Tube Suction: minus 20 cm H2O Tidal Motions: moderate Air Leak: none Chest Tube Removal Date: not removed yet Other Drains: none PHYSICAL EXAM: Incisions/Wounds: dressing dry and intact Lungs: normal respiratory effort Heart: normal rate and rhythm Abdomen: normal Extremities: no edema Neuro: sleeping CXR: none this AM LABS: reviewed, Hgb 8.5 IMPRESSION and PLAN: Pain Management: per primary The patient's pain is well controlled: yes Chest Tube Management: none - Chest tube to - 20 suction - Will need AM CXR - Rest per primary - Please reach out with questions or concerns Walt Licona MD General Surgery Resident, PGY-3 Thoracic Surgery - Heart and Vascular [place] * Progress Notes - Non-Billable - Unique Nelson DO - 01/04/2024 7:11 PM EST POST-PROCEDURE CHECK NOTE Name: Troy Walsh Date of : 1955 Troy Walsh is 68 year old female who underwent flexible bronchoscopy, Right VATS, exploration, pleural biopsies, evacuation hemothorax, washout chest Patient seen and examined at bedside. Results were discussed with the patient and questions were answered to satisfaction. Patient complains of mild chest wall pain at site of chest tubes. She deniesworsening SOB, abdominal pain, OR dizziness. Post-op Diagnosis: right lung mass, hemorrhagic pleural effusion Physical Examination: BP 125/51 | Pulse 88 | Temp 36.8 C (98.2 F) (Tympanic) | Resp 18 | Ht 1.702 m (5' 7") | Wt 89 kg (196 lb 4.8 oz) | SpO2 96% | BMI 30.74 kg/m | BSA 2.05 m Constitutional: Conscious, alert, cooperative and in no immediate distress HEENT: NC/AT, Tongue: moist Chest: Fair bilateral air entry, diminished on R, good air movement on L Heart: S1 S2 audible, rhythm regular, no murmurs, clicks or rubs Abdomen: Soft, non-tender Extremities: moving extremities spontaneously Assessment and plan Troy Walsh is 68 year old female who underwent flexible bronchoscopy, Right VATS, exploration, pleural biopsies, evacuation hemothorax, washout chest. Mentating well, saturating well on LFNC. Unique Nelson DO Internal Medicine/Pediatrics PGY-1 * Care Plan - Cristy Morgan RN - 01/03/2024 4:47 PM EST Clinical Goal(s): pt will remain free from falls and injuries (01/03/24 0700) Possible barriers to meeting goal(s)/advancing plan of care: weakness Stability of the patient: Moderately stable - low risk of patient condition declining or worsening Summary regarding today's goal(s): Met: no falls or injuries Recommendations: continue with hourly rounding, call light within reach, bed in low position * Progress Notes - Non-Billable - Shorty Hidalgo MD - 01/03/2024 10:01 AM EST ATTENDING ADDENDUM: I have seen, examined, and evaluated this patient, and all imaging studies and records have been personally reviewed by me. I have discussed the case and it's management with the resident/ mid-level providers as documented in the resident/mid-level provider's note on the day of service. 68yoF with findings concerning for stage IV lung cancer. I do not have access to official radiology reports but I reviewed most recent CT chest. There is a large right hilar mass and bilateral lung nodules suspicoius for metastasis. There is also suspicionof pleural based disease. There is a moderate right basilar effusion that appears to have blood products. Discussed with patient a recommendation of R VATS exploration which will allow for draining of effusion and washout of her chest to prevent fibrothorax as well possible tissue sampling for diagnosis and staging. She seemed agreeable -OR tenatively tomorrow for R VATS, exploration , washout, biopsies Shorty Hidalgo MD * Diagnostic Clarification - Romaine Tejada MD - 01/03/2024 8:34 AM EST The patient has been diagnosed with anemia of chronic disease. * Ancillary Progress Note - Shikha Luong MSW - 01/02/2024 10:30 AM EST CARE MANAGEMENT - ADULT TRANSITION NOTE [facility] [address] Name: Troy Walsh Location: [facility] A572/A Date: 01/02/2024 Time: 10:30 AM Risk Stratification Readmission Risk Score: 8.2 (01/02/24 0801) AM-PAC Score With Stairs : 19 (01/02/24 0800) Caregiver Information Patient Contacts Name Relation Home Work Mobile Teetee Walsh Sibling [phone] Transition of Care Checklist Narrative: met with pt. Lives with sister. No cm needs at this time. Room air. Will follow if needsarise. Anticipated Transportation at Discharge: sister Patient/Family Expectations: home Transition Planning Additional Considerations: Care Management will continue to monitor and assist with discharge planning needs * Care Plan - Lorrie Yoder RN - 01/02/2024 3:21 AM EST Clinical Goal(s): pt will remain free from falls (01/02/24 0321) Possible barriers to meeting goal(s)/advancing plan of care: weakness Stability of the patient: Moderately stable - low risk of patient condition declining or worsening Summary regarding today's goal(s): Met: pt remains free from falls Recommendations: call light within reach, hourly rounding * Care Plan - Lorrie Yoder RN - 01/01/2024 1:07 AM EST Clinical Goal(s): pt will remain free from falls this shift (12/31/23 2300) Possible barriers to meeting goal(s)/advancing plan of care: weakness Stability of the patient: Moderately stable - low risk of patient condition declining or worsening Summary regarding today's goal(s): Met: pt remains free from falls Recommendations: maintain fall precautions, bed alarm on and call light within reach, hourly rounding * Respiratory Progress Note - Schuyler Carranza, ELECTRIC MULE DRIVER - 12/31/2023 9:19 PM EST PATIENT DRIVEN PROTOCOL - Respiratory Care Services [address] [address] Name: Troy Walsh Location: [facility] A572/A Date: 12/31/2023 Time: 9:22 PM Patient Driven Protocol Summary: Initial evaluation performed. This Treatment Plan and medications will be reviewed by the Primary Care Team for any contraindications. Respiratory Care Treatment Plan Aerosol Therapy Treatment:: Inhaler(s) QDAY with Fluticasone Furoate (100 mcg inhalation powder / 1 inhalation) Arnuity Ellipta. to suppress bronchial inflammation and edema by the use of systemic steroid sparing therapy. Additional Aerosolized Treatments: Hand Held Nebulizer Tx PRN with Albuterol Sulfate: Unit dose 0.083%. to reduce work of breathing and improve pulmonary gas exchange. . Pulmonary Volume Expansion Therapy: Incentive Spirometry PRN to prevent or treat alveolar consolidation and atelectasis. . Secretion Management Treatment: Flutter TherapyPRN to enhance mobilization of secretions. . The patient will be re-evaluated: No re-evaluation needed. Indications for treatment met. The Triage Level is: (Assessment Score = 6 -10) Level 4. Triage Level Definitions: Level 1 Severe Respiratory/Airway Compromise Level 2 Moderate Respiratory/Airway Compromise or high risk for pulmonary complications Level 3 Mild Respiratory/Airway Compromise or moderate risk for pulmonary complications Level 4 Episodic Respiratory/Airway Compromise or low risk for pulmonary complications Level 5 No Respiratory/Airway Compromise Triage 1 Triage 2 Triage 3 Triage 4 Triage 5 greater than 20 16 - 20 11 - 15 6 - 10 0 - 5 Medical Record Assessment Clinical Findings Pulmonary Status: 3 - Pulm Impairment (acute or chronic) w/o exacerbation, or 1 - 2 rib fractures Surgical Status: 0 - No Surgical History Chest X-Ray: 2 - Infiltrates and/or Atelectasis Assessment Score: 5 Patient Assessment Clinical Findings Respiratory Pattern: 0 - RR 12 - 20; Patient only gets breathless with strenuous exercise. Breath Sounds: 2 - Diminished bilaterally Cough Effectiveness: 0 - Strong non-productive Sputum Production: 0 - No sputum production Level of Activity: 1 - Ambulatory with assist O2 needed to keep SpO2 greater than or equal to 92%: 0 - Room Air Assessment Score: 3 Total Assessment Score: 8 Breath Sounds: Inspiratory and expiratory diminished bilaterally.. Cough and Sputum: No cough was present.. Vital Signs: Resp: 19 (12/31/231899) Pulse: 96 (12/31/231899) Temp: 37.2 C (99 F) (12/31/231899) BP: 125/64 (12/31/231899) PFT: Minimal Predicted IC: 0.927 L. Inspiratory capacity: 1L. Primary Service: [facility]. Admitting Diagnosis: Mass of right lung [R91.8] Pleural effusion [J90] Pulmonary Diagnosis: Asthma, Lung Mass, and Pleural Effusions. Prescriptions/Home Medications/Durable Medical Equipment: Albuterol Sulfate HFA 108 (90 Base) MCG/ACT Inhalation Aerosol Solution Fluticasone Propionate HFA 44 MCG/ACT Inhalation Aerosol (Flovent HFA) documented in this encounter Plan of Treatment Pending Results Name Type Priority Associated Diagnoses Date /Time IOF CT ABD/PELVIS WO IV CONTRAST Medical Imaging STAT 01/02/2024 7:[address] CHEST WO CONTRAST Medical Imaging STAT 01/02/2024 7:44 AM EST IOF MRI BRAIN WO CONTRAST Medical Imaging STAT 01/02/2024 7:44 AM EST MICROSLIDE CONSULTATION Pathology Routine 01/05/2024 2:52 PM EST IR BIOPSY Medical Imaging Routine 5:12 PM EST CYTOLOGY Pathology Routine 01/12/2024 4:5 0 PM EST Scheduled Orders Name Type Priority Associated Diagnoses Order Schedule XR CHEST 2 VIEWS Medical Imaging Routine One Time for 1 Occurrences starting 12/31/2023 until 12/31/[address] ABD/PELVIS WO IV CONTRAST Medical Imaging STAT One Time for 1 Occurrences starting 12/31/2023 until 12/31/[address] CHEST WO CONTRAST Medical Imaging STAT One Time for 1 Occurrences starting 12/31/2023 until 12/31/2023 IOF MRI BRAIN WO CONTRAST Medical Imaging STAT One Time for 1 Occurrences starting 12/31/2023 until 12/31/2023 WHOLE BLOOD PROFILE, ARTERIAL Lab STAT Perform Now for 1 Occurrences starting 01/04/2024 until 01/04/2024 PT INR Lab STAT Perform Now fo r 1 Occurrences starting 01/04/2024 until 01/04/2024 FIBRINOGEN Lab STAT Perform Now fo r 1 Occurrences starting 01/04/2024 until 01/04/2024 CYTOLOGY Pathology Routine One Time for 1 Occurrences starting 01/04/2024 until 01/04/2024 XR CHEST 1 VIEW Medical Imaging Routine Perf orm Now for 1 Occurrences starting 01/05/2024 until 01/05/2024 MICROSLIDE CONSULTATION Pathology Routine One Time for 1 Occurrences starting 01/05/2024 until 01/05/2024, 1 completed IR BIOPSY Medical Imaging Routine One Time for 1 Occurrences starting 01/10/2024 until 01/10/2024 CYTOLOGY Pathology Routine One Time for 1 Occurrences starting 01/12/2024 until 01/12/2024, 1 completed CBC Lab Routine Hemothorax on right Expected: 01/16/2024 (Approximate), Expires: 01/12/2025 Health Maintenance Due Date Last Done Comments Lipid Panel 1957 HbA1c 1965 Depression Screening 1969 Albumin/Creatinine Ratio 1975 Hepatitis C Screening 1975 Mammogram 1997 Cologuard 2002 Colonoscopy 2002 Colorectal Cancer Screening 2002 Fecal Occult Blood Test 2002 Sigmoidoscopy 2002 DXA Scan 2022 GFR 07/15/2024 01/13/2024, 12/16, 01/11/2024, Additional history exists DTaP,Tdap,and Td Vaccines (2 [...] Procedure Name Priority Date/Time Associated Diagnosis Comments XR CHEST 1 VIEW STAT 01/13/2024 10:08 AM EST BASIC METABOLIC PANEL STAT 01/13/2024 7:04 AM EST PHOSPHORUS Routine 01/13/2024 7:04 AM EST CBC Routine 01/13/2024 7:04 AM EST MAGNESIUM Routine 01/13/2024 7:04 AM EST XR CHEST 1 VIEW Routine 01/12/2024 9:15 PM EST XR CHEST 1 VIEW STAT 01/12/2024 5:45 PM EST BASIC METABOLIC PANEL STAT 01/12/2024 7:06 AM EST PHOSPHORUS Routine 01/12/2024 7:06 AM EST CBC Routine 01/12/2024 7:06 AM EST MAGNESIUM Routine 01/12/2024 7:06 AM EST CBC Routine 01/11/2024 10:54 AM EST BASIC METABOLIC PANEL STAT 01/11/2024 10:53 AM EST PHOSPHORUS Routine 01/11/2024 10:53 AM EST MAGNESIUM Routine 01/11/2024 10:[address] CHEST W CONTRAST STAT 01/11/2024 8 :58 AM EST RESPIRATORY PATHOGEN PANEL, PCR STAT 01/11/2024 4:18 AM EST BASIC METABOLIC PANEL STAT 01/10/2024 6:27 AM EST PHOSPHORUS Routine 01/10/2024 6:27 AM EST CBC Routine 01/10/2024 6:27 AM EST MAGNESIUM Routine 01/10/2024 6:27 AM EST BASIC METABOLIC PANEL STAT 01/09/2024 7:56 AM EST PHOSPHORUS Routine 01/09/2024 7:56 AM EST CBC Routine 01/09/2024 7:56 AM EST MAGNESIUM Routine 01/09/2024 7:56 AM EST XR CHEST 1 VIEW Routine 01/08/2024 6:45 AM EST BASIC METABOLIC PANEL STAT 01/08/2024 6:37 AM EST PHOSPHORUS Routine 01/08/2024 6:37 AM EST CBC Routine 01/08/2024 6:37 AM EST MAGNESIUM Routine 01/08/2024 6:37 AM EST BASIC METABOLIC PANEL STAT 01/07/2024 7:10 AM EST PHOSPHORUS Routine 01/07/2024 7:10 AM EST CBC Routine 01/07/2024 7:10 AM EST MAGNESIUM Routine 01/07/2024 7:10 AM EST XR CHEST 1 VIEW Routine 01/07/2024 6:38 AM EST XR CHEST 1 VIEW Routine 01/06/2024 6:00 AM EST BASIC METABOLIC PANEL STAT 01/06/2024 6:00 AM EST PHOSPHORUS Routine 01/06/2024 6:00 AM EST CBC Routine 01/06/2024 6:00 AM EST MAGNESIUM Routine 01/06/2024 6:00 AM EST HC ECG TRACING ONLY STAT 01/06/2024 5 :27 AM EST Chest pain XR CHEST 1 VIEW STAT 01/05/2024 1:26 PM EST BASIC METABOLIC PANEL STAT 01/05/2024 8:22 AM EST PHOSPHORUS Routine 01/05/2024 8:22 AM EST CBC Routine 01/05/2024 8:22 AM EST MAGNESIUM Routine 01/05/2024 8:22 AM EST XR CHEST 1 VIEW STAT 01/05/2024 7:31 AM EST CBC STAT 01/04/2024 10:45 PM EST XR CHEST 1 VIEW STAT 01/04/2024 3:49 PM EST WHOLE BLOOD PROFILE, ARTERIAL STAT 01/04/2024 2:02 PM EST CYTOLOGY Routine 01/04/2024 1:50 PM EST Hemothorax on right APTT STAT 01/04/2024 1:38 PM EST HC COMPATIBILITY ELECTRONIC CROSSMATCH STAT 01/04/2024 1:35 PM EST TRANSFUSE PACKED RED BLOOD CELLS Routine 01/04/2024 1:20 PM EST TRANSFUSE PACKED RED BLOOD CELLS Routine 01/04/2024 12:56 PM EST HC COMPATIBILITY ELECTRONIC CROSSMATCH STAT 01/04/2024 12:40 PM EST SURGICAL PATHOLOGY Routine 01/04/2024 12 :28 PM EST Hemothorax on right WHOLE BLOOD PROFILE, ARTERIAL STAT 01/04/2024 12:15 PM EST Thoracoscopy Surgical Total Pulmonary Decortication 01/04/2024 9:50 AM EST Hemothorax on right ABO/RH STAT 01/04/2024 9:46 AM EST TYPE AND SCREEN STAT 01/04/2024 9:46 AM EST BASIC METABOLIC PANEL STAT 01/04/2024 7:42 AM EST PHOSPHORUS Routine 01/04/2024 7:42 AM EST CBC Routine 01/04/2024 7:42 AM EST MAGNESIUM Routine 01/04/2024 7:42 AM EST BASIC METABOLIC PANEL Routine 01/03/2024 6:22 AM EST PHOSPHORUS Routine 01/03/2024 6:22 AM EST CBC Routine 01/03/2024 6:22 AM EST MAGNESIUM Routine 01/03/2024 6:22 AM EST BASIC METABOLIC PANEL Routine 01/02/2024 8:27 AM EST PHOSPHORUS Routine 01/02/2024 8:27 AM EST CBC Routine 01/02/2024 8:27 AM EST MAGNESIUM Routine 01/02/2024 8:27 AM EST BASIC METABOLIC PANEL Routine 01/01/2024 7:32 AM EST IRON SCREEN, INCLUDING TIBC Add-on 01/01/2024 7:32 AM EST CBC Routine 01/01/2024 7:32 AM EST FERRITIN Add-on 01/01/2024 7:32 AM EST US PELVIS TRANS-VAGINAL NON-OB Routine 12/31/2023 10:57 PM EST COMPREHENSIVE METABOLIC PANEL Routine 12/31/2023 12:39 PM EST CBC Routine 12/31/2023 12:39 PM EST GLUCOSE METER, POINT OF CARE SANCHEZ 12/31/2023 12:04 PM EST MICROSLIDE CONSULTATION Routine 12/30/2023 2:52 PM EST documented in this encounter Results * XR CHEST 1 VIEW (01/13/2024 10:08 AM EST) Anatomical Region Laterality Modality Chest Computed Radiogr aphy 01/13/2024 11:0 6 AM EST Impressions 01/13/2024 11:03 AM EST IMPRESSION Unchanged examination without evidence of pneumothorax. Narrative 01/13/2024 11:03 AM EST EXAM XR CHEST 1 VIEW - 01/13/2024 10:08 am HISTORY eval for interval change in PTX TECHNIQUE Single portable semi upright view the chest submitted for interpretation. COMPARISON 01/12/2024. FINDINGS No right-sided pneumothorax. The large right basilar mass, right pleural fluid, and areas of atelectasis are similar to the previous exam. Remainder of examination is likewise unchanged. Procedure Note Ciaran Duron MD - 01/13/2024 EXAM XR CHEST 1 VIEW - 01/13/2024 10:08 am HISTORY eval for interval change in PTX TECHNIQUE Single portable semi upright view the chest submitted forinterpretation. COMPARISON 01/12/2024. FINDINGS No right-sided pneumothorax. The large right basilar mass, right pleuralfluid, and areas of atelectasis are similar to the previous exam.Remainder of examination is likewise unchanged. IMPRESSION IMPRESSION Unchanged examination without evidence of pneumothorax. Unique Landon McPhedran DO RADIOLO GY (RAD GENERAL) * PHOSPHORUS (01/13/2024 7:04 AM EST) Phosphorus 4.8 2.5 - 4.8 mg/dL 01/13/2024 7:52 AM EST LABORATORY [facility] Blood Venous blood specimen / Unknown Venipuncture / Unknown 01/13/2024 7:04 AM EST 01/13/2024 7:26 AM EST Romaine Tejada MD LAB BLOOD ORDERA BLES Performing Organization Address [facility]/ZIP Co de Phone Number LABORATORY [address] [place] [address] * MAGNESIUM (01/13/2024 7:04 AM EST) Magnesium 2.0 1.5 - 2.6 mg/dL 01/13/2024 7:52 AM EST LABORATORY [facility] Blood Venous blood specimen / Unknown Venipuncture / Unknown 01/13/2024 7:04 AM EST 01/13/2024 7:26 AM EST Romaine Tejada MD LAB BLOOD ORDERA BLES Performing Organization Address [facility]/ZIP Co de Phone Number LABORATORY [address] [place] [address] * (ABNORMAL) BASIC METABOLIC PANEL (01/13/2024 7:04 AM EST) BUN 22(H) 6 - 20 mg/dL 01/13/2024 7:52 AM EST LABORATORY [facility] Creatinine 1.2(H) 0.5 - 1.0 mg/dL 01/13/2024 7:52 AM EST LABORATORY [facility] Estimated Glomerular Filtration Rate 48(L) >=60 mL/min 01/13/2024 7:52 AM EST LABORATORY [facility] Comment:eGFR is calculated b ased on the CKD-EPI 2020 equation Sodium 140 135 - 146 mmol/L 01/13/2024 7:52 AM EST LABORATORY [facility] Potassium 4.9 3.5 - 5.1 mmol/L 01/13/2024 7:52 AM EST LAB[facility]ATORY [facility] Chloride 104 98 - 107 mmol/L 01/13/2024 7:52 AM EST LAB[facility] CO2 24 22 - 32 mmol/L 01/13/2024 7:52 AM EST LAB[facility]ATORY [facility] Anion Gap 12 7 - 15 mmol/L 01/13/2024 7:52 AM EST LAB[facility]ATORY [facility] Glucose 92 70 - 120 mg/dL 01/13/2024 7:52 AM EST LAB[facility]ATORY [facility] Calcium 8.6 8.4 - 10.2 mg/dL 01/13/2024 7:52 AM EST LAB[facility]ATORY [facility] Blood Venous blood specimen / Unknown Venipuncture / Unknown 01/13/2024 7:04 AM EST 01/13/2024 7:26 AM EST Romaine Tejada MD LAB BLOOD ORDERA BLES LABORATORY [facility] [address] [place] [address] * (ABNORMAL) CBC (01/13/2024 7:04 AM EST) WBC 14.23(H) 4.00 - 10.80 K/uL 01/13/2024 7:45 AM EST LABORATORY [facility] RBC 2.44 3.85 - 5.15 M/uL 01/13/2024 7:45 AM EST LAB[facility]ATORY [facility] HGB 7.5(L) 12.0 - 15.3 g/dL 01/13/2024 7:45 AM EST LAB[facility]ATORY [facility] HCT 24.2(L) 36.0 - 45.2 % 01/13/2024 7:45 AM EST LAB[facility]ATORY [facility] MCV 99.2 81.5 - 97.5 fL 01/13/2024 7:45 AM EST LAB[facility]ATORY [facility] MCH 30.7 27.0 - 34.0 pg 01/13/2024 7:45 AM EST LAB[facility]ATORY [facility] MCHC 31.0 32.0 - 36.0 g/dL 01/13/2024 7:45 AM EST LABORATORY [facility] RDW 13.7 11.5 - 15.5 % 01/13/2024 7:45 AM EST LABORATORY GM PLT 552(H) 140 - 400 K/uL 01/13/2024 7:45 AM EST LABORATORY [facility] MPV 8.3 6.6 - 11.1 fL 01/13/2024 7:45 AM EST LABORATORY GM nRBCs 0 <=0 /100 WBCs 01/13/2024 7:45 AM EST LABORATORY GM Blood Venous blood specimen / Unknown Venipuncture / Unknown 01/13/2024 7:04 AM EST 01/13/2024 7:32 AM EST Romaine Tejada MD LAB BLOOD ORDERA BLES LABORATORY [facility] [address] [place] [address] * XR CHEST 1 VIEW (01/12/2024 9:15 PM EST) Anatomical Region Laterality Modality Chest Computed Radiogr aphy 01/13/2024 7:27 AM EST Impressions 01/13/2024 7:25 AM EST IMPRESSION No pneumothorax. Remainder of examination is stable from the recent chest x- ray and CT. Narrative 01/13/2024 7:25 AM EST EXAM XR CHEST 1 VIEW - 01/12/2024 9:15 pm HISTORY post lung bx TECHNIQUE Single portable semi upright view the chest submitted for interpretation. COMPARISON 01/12/2024. FINDINGS Cardiac size difficult to assess given the opacification of the right hemithorax. The large right mass in the lung base is stable with probable atelectasis of the adjacent lung. Small right pleural effusion. Other scattered pulmonary nodules bilaterally are better evidenced on the prior CT. No pneumothorax identified. Remainder of examination is stable. Procedure Note Ciaran Duron MD - 01/13/2024 EXAM XR CHEST 1 VIEW - 01/12/2024 9:15 pm HISTORY post lung bx TECHNIQUE Single portable semi upright view the chest submitted forinterpretation. COMPARISON 01/12/2024. FINDINGS Cardiac size difficult to assess given the opacification of the righthemithorax. The large right mass in the lung base is stable with probableatelectasis of the adjacent lung. Small right pleural effusion. Otherscattered pulmonary nodules bilaterally are better evidenced on the priorCT. No pneumothorax identified. Remainder of examination is stable. IMPRESSION IMPRESSION No pneumothorax. Remainder of examination is stable from the recent chestx-ray and CT. Malu Gupta MD RADIOLOGY (RAD GENER AL) * XR CHEST 1 VIEW (01/12/2024 5:45 PM EST) Anatomical Region Laterality Modality Chest Computed Radiogr aphy 01/12/2024 6:10 PM EST Impressions 01/12/2024 6:07 PM EST IMPRESSION Questionable small right pneumothorax. Follow-up is recommended. Narrative 01/12/2024 6:07 PM EST EXAM XR CHEST 1 VIEW - 01/12/2024 5:45 pm HISTORY post-lung bx COMPARISON Chest x-ray dated 01/08/2024 TECHNIQUE Portable upright AP view of the chest was obtained. FINDINGS Catheters: None Tubes: None Foreign bodies: None seen There is a linear density along the course of the prior chest apical chest tube, raising the possibility of a small pneumothorax. A mass in the right lung with volume loss in the right hemithorax is again noted. Also again noted are nodules in the left lung. There is also a small right pleural effusion. The cardiomediastinal silhouette is stable in appearance. Procedure Note Hussain Sheikh MD - 01/12/2024 EXAM XR CHEST 1 VIEW - 01/12/2024 5:45 pm HISTORY post-lung bx COMPARISON Chest x-ray dated 01/08/2024 TECHNIQUE Portable upright AP view of the chest was obtained. FINDINGS Catheters: None Tubes: None Foreign bodies: None seen There is a linear density along the course of the prior chest apical chesttube, raising the possibility of a small pneumothorax. A mass in theright lung with volume loss in the right hemithorax is again noted. Alsoagain noted are nodules in the left lung. There is also a small rightpleural effusion. The cardiomediastinal silhouette is stable inappearance. IMPRESSION IMPRESSION Questionable small right pneumothorax. Follow-up is recommended. Malu Gupta MD RADIOLOGY (RAD GENER AL) * PHOSPHORUS (01/12/2024 7:06 AM EST) Phosphorus 4.7 2.5 - 4.8 mg/dL 01/12/2024 7:57 AM EST LABORATORY [facility] Blood Venous blood specimen / Unknown Venipuncture / Unknown 01/12/2024 7:06 AM EST 01/12/2024 7:30 AM EST Romaine Tejada MD LAB BLOOD ORDERA BLES Performing Organization Address [facility]/ZIP Co de Phone Number LABORATORY [place] [address] [place] [address] * MAGNESIUM (01/12/2024 7:06 AM EST) Magnesium 2.1 1.5 - 2.6 mg/dL 01/12/2024 7:57 AM EST LABORATORY [facility] Blood Venous blood specimen / Unknown Venipuncture / Unknown 01/12/2024 7:06 AM EST 01/12/2024 7:30 AM EST Romaine Tejada MD LAB BLOOD ORDERA BLES Performing Organization Address City/[facility] Co de Phone Number LABORATORY [facility] [address] [place] [address] * (ABNORMAL) BASIC METABOLIC PANEL (01/12/2024 7:06 AM EST) Pathologist [facility] BUN 18 6 - 20 mg/dL 01/12/2024 7:57 AM EST LABORATORY [facility] Creatinine 1.2(H) 0.5 - 1.0 mg/dL 01/12/2024 7:57 AM EST LABORATORY [facility] Estimated Glomerular Filtration Rate 49(L) >=60 mL/min 01/12/2024 7:57 AM EST LABORATORY [facility] Comment:eGFR is calculated b ased on the CKD-EPI 2020 equation Sodium 139 135 - 146 mmol/L 01/12/2024 7:57 AM EST LAB[facility]ATORY [facility] Potassium 4.5 3.5 - 5.1 mmol/L 01/12/2024 7:57 AM EST LAB[facility]ATORY [facility] Chloride 103 98 - 107 mmol/L 01/12/2024 7:57 AM EST LAB[facility] CO2 27 22 - 32 mmol/L 01/12/2024 7:57 AM EST LAB[facility]ATORY [facility] Anion Gap 9 7 - 15 mmol/L 01/12/2024 7:57 AM EST LAB[facility]ORY [facility] Glucose 106 70 - 120 mg/dL 01/12/2024 7:57 AM EST LAB[facility]ATORY [facility] Calcium 8.7 8.4 - 10.2 mg/dL 01/12/2024 7:57 AM EST LAB[facility]ATORY [facility] Blood Venous blood specimen / Unknown Venipuncture / Unknown 01/12/2024 7:06 AM EST 01/12/2024 7:30 AM EST Romaine Tejada MD LAB BLOOD ORDERA BLES Performing Organization Address City/State/[facility] Co de Phone Number LABORATORY [facility] [address] [place] [address] * (ABNORMAL) CBC (01/12/2024 7:06 AM EST) WBC 12.14(H) 4.00 - 10.80 K/uL 01/12/2024 7:39 AM EST LABORATORY [facility] RBC 2.47 3.85 - 5.15 M/uL 01/12/2024 7:39 AM EST LAB[facility]ATORY [facility] HGB 7.6(L) 12.0 - 15.3 g/dL 01/12/2024 7:39 AM EST LAB[facility]ATORY [facility] HCT 25.2(L) 36.0 - 45.2 % 01/12/2024 7:39 AM EST LAB[facility]ATORY [facility] MCV 102.0 81.5 - 97.5 fL 01/12/2024 7:39 AM EST LAB[facility]ATORY [facility] MCH 30.8 27.0 - 34.0 pg 01/12/2024 7:39 AM EST LAB[facility]ATORY [facility] MCHC 30.2 32.0 - 36.0 g/dL 01/12/2024 7:39 AM EST LAB[facility]ATORY [facility] RDW 14.0 11.5 - 15.5 % 01/12/2024 7:39 AM EST LABORATORY [facility] PLT 569(H) 140 - 400 K/uL 01/12/2024 7:39 AM EST LAB[facility]ATORY [facility] MPV 8.3 6.6 - 11.1 fL 01/12/2024 7:39 AM EST LAB[facility]ATORY [facility] nRBCs 0 <=0 /100 WBCs 01/12/2024 7:39 AM EST LAB[facility] Blood Venous blood specimen / Unknown Venipuncture / Unknown 01/12/2024 7:06 AM EST 01/12/2024 7:31 AM EST Romaine Tejada MD LAB BLOOD ORDERA BLES LABORATORY [facility] [address] [place] [address] * (ABNORMAL) CBC (01/11/2024 10:54 AM EST) WBC 12.43(H) 4.00 - 10.80 K/uL 01/11/2024 11:23 AM EST LAB[facility]ATORY [facility] RBC 2.97 3.85 - 5.15 M/uL 01/11/2024 11:23 AM EST LAB[facility]ATORY [facility] HGB 9.2(L) 12.0 - 15.3 g/dL 01/11/2024 11:23 AM EST LAB[facility]ATORY [facility] HCT 30.7(L) 36.0 - 45.2 % 01/11/2024 11:23 AM EST LAB[facility]ATORY [facility] MCV 103.4 81.5 - 97.5 fL 01/11/2024 11:23 AM EST LAB[facility]ATORY [facility] MCH 31.0 27.0 - 34.0 pg 01/11/2024 11:23 AM EST LAB[facility]ATORY [facility] MCHC 30.0 32.0 - 36.0 g/dL 01/11/2024 11:23 AM EST LAB[facility]ATORY [facility] RDW 13.8 11.5 - 15.5 % 01/11/2024 11:23 AM EST LAB[facility]ATORY [facility] PLT 483(H) 140 - 400 K/uL 01/11/2024 11:23 AM EST LAB[facility]ATORY [facility] MPV 9.7 6.6 - 11.1 fL 01/11/2024 11:23 AM EST LAB[facility]ATORY [facility] nRBCs 0 <=0 /100 WBCs 01/11/2024 11:23 AM EST LAB[facility]ATORY [facility] Blood Venous blood specimen / Unknown Capillary / Unknown 01/11/2024 10:54 AM EST 01/11/2024 11:02 AM EST Romaine Tejada MD LAB BLOOD ORDERA BLES Performing Organization Address [facility] Co de Phone Number LABORATORY [facility] [address] [place] [address] * PHOSPHORUS (01/11/2024 10:53 AM EST) Phosphorus 3.7 2.5 - 4.8 mg/dL 01/11/2024 11:37 AM EST LAB[facility]ATORY [facility] Blood Venous blood specimen / Unknown Venipuncture / Unknown 01/11/2024 10:53 AM EST 01/11/2024 11:02 AM EST Romaine Tejada MD LAB BLOOD ORDERA BLES Performing Organization Address [facility] Co de Phone Number LABORATORY [facility] [address] [place] [address] * MAGNESIUM (01/11/2024 10:53 AM EST) Magnesium 2.1 1.5 - 2.6 mg/dL 01/11/2024 11:37 AM EST LAB[facility]ATORY [facility] Blood Venous blood specimen / Unknown Venipuncture / Unknown 01/11/2024 10:53 AM EST 01/11/2024 11:02 AM EST Romaine Tejada MD LAB BLOOD ORDERA BLES Performing Organization Address [facility] de Phone Number LABORATORY [facility] [address] [place] [address] * BASIC METABOLIC PANEL (01/11/2024 10:53 AM EST) BUN 15 6 - 20 mg/dL 01/11/2024 11:37 AM EST LAB[facility]ATORY [facility] Creatinine 1.0 0.5 - 1.0 mg/dL 01/11/2024 11:37 AM EST LAB[facility]ATORY [facility] Estimated Glomerular Filtration Rate 62 >=60 mL/min 01/11/2024 11:37 AM EST LAB[facility]ATORY [facility] Comment:eGFR is calculated b ased on the CKD-EPI 2020 equation Sodium 136 135 - 146 mmol/L 01/11/2024 11:37 AM EST LAB[facility]ATORY [facility] Potassium 4.5 3.5 - 5.1 mmol/L 01/11/2024 11:37 AM EST LAB[facility] Chloride 102 98 - 107 mmol/L 01/11/2024 11:37 AM EST LAB[facility] CO2 22 22 - 32 mmol/L 01/11/2024 11:37 AM EST LAB[facility] Anion Gap 12 7 - 15 mmol/L 01/11/2024 11:37 AM EST LAB[facility] Glucose 100 70 - 120 mg/dL 01/11/2024 11:37 AM EST LAB[facility] Calcium 9.0 8.4 - 10.2 mg/dL 01/11/2024 11:37 AM EST LAB[facility] Blood Venous blood specimen / Unknown Venipuncture / Unknown 01/11/2024 10:53 AM EST 01/11/2024 11:02 AM EST Romaine Tejada MD LAB BLOOD ORDERA BLES LABORATORY [facility] [address] [place] [address] * CT CHEST W CONTRAST (01/11/2024 8:58 AM EST) Anatomical Region Laterality Modality Chest, Body, Cardio Computed [place] ography 01/11/2024 9:22 AM EST Impressions 01/11/2024 9:19 AM EST IMPRESSION: 1. Large hemorrhagic mass at the right lung base with poor delineation between areas of the lung parenchyma and the right pleural space/hemothorax. Right hemothorax relatively decreased in volume since chest tube placement. Substantial residual blood products likely in the right lung/pleural space. 2. Multiple solid pulmonary nodules compatible with metastatic disease. Minimal prominence of mediastinal lymph nodes is indeterminate in this context. Narrative 01/11/2024 9:19 AM EST EXAM EXAM: CT CHEST W CONTRAST DATE and TIME: 01/11/2024 8:58 am HISTORY CLINICAL INFORMATION: Per IR request for lung biopsy TECHNIQUE CT of the chest was performed with thin section collimation after the administration of IV contrast. COMPARISON Prior studies, most recently CT abdomen/pelvis 12/28/2022. CT chest 12/27/2023. FINDINGS LUNGS/AIRWAYS: Redemonstration of the large, heterogeneous mass lesion at the right lung base measuring up to 14.3 cm in greatest axial span. A superiorly projected protrusion of the mass appears to splay the right middle lobe and right lower lobe structures, extending caudad and probably partially decompressed into the right basilar pleural space. Overall, the lung parenchyma is inseparable from the pleural space in areas, potentially reflecting trans pleural invasion, in particular at the posterior costophrenic sulcus. Internal texture and prior noncontrast attenuation favors a predominance of a hemorrhagic mass/hemothorax. Multiple scattered solid pulmonary nodules are suggestive of metastatic disease and not significantly changed in size in the relatively short interval from 12/27/2023. PLEURA: Component right hemothorax relatively decreased since placement of the apex and basal directed chest tubes. Trace pleural air attributable to instrumentation. CARDIOVASCULAR: Leftward mediastinal shift associated with the space-occupying process in the right hemithorax. Borderline left atrial dilation (45 mm AP dimension). Central pulmonary arteries well opacified and patent. No pericardial effusion. LYMPH NODES: In the context of the above, a 1 cm short axis subcarinal lymph node is indeterminate in nature. A rounded 8 mm right paratracheal lymph node (series 2, image 87) is indeterminate in nature. THYROID: Within normal limits. ESOPHAGUS: Normally decompressed. UPPER ABDOMEN: Within normal limits. SOFT TISSUES: Sebaceous cyst abutting the skin surface of the left anterior abdomen. BONES: Osseous hemangioma of the L1 vertebral body. No acute or destructive osseous abnormalities identified. Procedure Note Dontae Khoury MD - 01/11/2024 EXAM EXAM: CT CHEST W CONTRAST DATE and TIME: 01/11/2024 8:58 am HISTORY CLINICAL INFORMATION: Per IR request for lung biopsy TECHNIQUE CT of the chest was performed with thin section collimation after theadministration of IV contrast. COMPARISON Prior studies, most recently CT abdomen/pelvis 12/28/2022. CT chest12/27/2023. FINDINGS LUNGS/AIRWAYS: Redemonstration of the large, heterogeneous mass lesion atthe right lung base measuring up to 14.3 cm in greatest axial span. Asuperiorly projected protrusion of the mass appears to splay the rightmiddle lobe and right lower lobe structures, extending caudad and probablypartially decompressed into the right basilar pleural space. Overall, thelung parenchyma is inseparable from the pleural space in areas,potentially reflecting trans pleural invasion, in particular at theposterior costophrenic sulcus. Internal texture and prior noncontrastattenuation favors a predominance of a hemorrhagic mass/hemothorax.Multiple scattered solid pulmonary nodules are suggestive of metastaticdisease and not significantly changed in size in the relatively shortinterval from 12/27/2023. PLEURA: Component right hemothorax relatively decreased since placement ofthe apex and basal directed chest tubes. Trace pleural air attributableto instrumentation. CARDIOVASCULAR: Leftward mediastinal shift associated with thespace-occupying process in the right hemithorax. Borderline left atrialdilation (45 mm AP dimension). Central pulmonary arteries well opacifiedand patent. No pericardial effusion. LYMPH NODES: In the context of the above, a 1 cm short axis subcarinallymph node is indeterminate in nature. A rounded 8 mm right paratracheallymph node (series 2, image 87) is indeterminate in nature. THYROID: Within normal limits. ESOPHAGUS: Normally decompressed. UPPER ABDOMEN: Within normal limits. SOFT TISSUES: Sebaceous cyst abutting the skin surface of the leftanterior abdomen. BONES: Osseous hemangioma of the L1 vertebral body. No acute ordestructive osseous abnormalities identified. IMPRESSION IMPRESSION: 1. Large hemorrhagic mass at the right lung base with poor delineationbetween areas of the lung parenchyma and the right pleuralspace/hemothorax. Right hemothorax relatively decreased in volume since chest tubeplacement. Substantial residual blood products likely in the rightlung/pleural space. 2. Multiple solid pulmonary nodules compatible with metastatic disease.Minimal prominence of mediastinal lymph nodes is indeterminate in thiscontext. Romaine Tejada MD RAD CT * RESPIRATORY PATHOGEN PANEL, PCR (01/11/2024 4:18 AM EST) Pathologist [facility] Adenovirus by PCR Negative Negative 024 5:21 AM EST LABORATORY [facility] Coronavirus 229E by PCR Negative Negative 01/11/2024 5:21 AM EST LABORATORY [facility] Coronavirus HKU1 by PCR Negative Negative 01/11/2024 5:21 AM EST LABORATORY [facility] Coronavirus NL63 by PCR Negative Negative 01/11/2024 5:21 AM EST LABORATORY [facility] Coronavirus OC43 by PCR Negative Negative 01/11/2024 5:21 AM EST LABORATORY [facility] Coronavirus SARS-CoV-2 by PCR Negative Negative 01/11/2024 5:21 AM EST LABORATORY [facility] Human Metapneumovirus by PCR Negative Negative 01/11/2024 5:21 AM EST LABORATORY [facility] Rhinovirus/Enterovi gato by PCR Negative Negative 01/11/2024 5:21 AM EST LABORATORY [facility] Influenza A Virus by PCR Negative Negative 01/11/2024 5:21 AM EST LABORATORY [facility] Influenza B Virus by PCR Negative Negative 01/11/2024 5:21 AM EST LABORATORY [facility] [place] Parainfluenza Virus 1 by PCR Negative Negative 01/11/2024 5:21 AM EST LABORATORY [facility] [place] Parainfluenza Virus 2 by PCR Negative Negative 01/11/2024 5:21 AM EST LABORATORY [facility] [place] Parainfluenza Virus 3 by PCR Negative Negative 01/11/2024 5:21 AM EST LABORATORY [facility] [place] Parainfluenza Virus 4 by PCR Negative Negative 01/11/2024 5:21 AM EST LABORATORY [facility] [place] Respiratory Syncytial Virus by PCR Negative Negative 01/11/2024 5:21 AM EST LABORATORY [facility] [place] Bordetella pertussis by PCR Negative Negative 01/11/2024 5:21 AM EST LABORATORY [facility] [place] Chlamydia pneumoniae by PCR Negative Negative 01/11/2024 5:21 AM EST LABORATORY [facility] [place] Mycoplasma pneumoniae by PCR Negative Negative 01/11/2024 5:21 AM EST LABORATORY [facility] [place] Bordetella parapertussis by PCR Negative Negative 01/11/2024 5:21 AM EST LABORATORY [facility] [place] Comment: The primers that detect Rhinovirus may cross react with some Enterorviruses. The validation of bronchial specimens, tracheal aspirates, and throats for this assay was developed and performance characteristics determined by [facility]. The validation of alternate specimen types has not been cleared or approved by the U.S. Food and Drug Administration (FDA). It has been determined that such clearance or approval is not necessary. Upper Respiratory Mid-turbinate nasal swab / Unknown Non-blood Collection / Unknown 01/11/2024 4:18 AM EST 01/11/2024 4:29 AM EST [employer]iqu[facility] Watts Dipesh Nelson DO LAB [facility] - GENERAL ORDERABLES Performing Organization Address [facility] Co de Phone Number LABORATORY [facility] [address] [place] [address] * PHOSPHORUS (01/10/2024 6:27 AM EST) Phosphorus 3.2 2.5 - 4.8 mg/dL 01/10/2024 7:30 AM EST LABORATORY [facility] Blood Venous blood specimen / Unknown Venipuncture / Unknown 01/10/2024 6:27 AM EST 01/10/2024 7:03 AM EST Romaine Tejada MD LAB BLOOD ORDERA BLES Performing Organization Address [facility] de Phone Number LABORATORY C [address] [place] [address] * MAGNESIUM (01/10/2024 6:27 AM EST) Magnesium 2.1 1.5 - 2.6 mg/dL 01/10/2024 7:30 AM EST LABORATORY [facility] Blood Venous blood specimen / Unknown Venipuncture / Unknown 01/10/2024 6:27 AM EST 01/10/2024 7:03 AM EST Romaine Tejada MD LAB BLOOD ORDERA BLES Performing Organization Address [facility] de Phone Number LABORATORY [facility] [address] [place] [address] * BASIC METABOLIC PANEL (01/10/2024 6:27 AM EST) BUN 15 6 - 20 mg/dL 01/10/2024 7:30 AM EST LABORATORY [facility] Creatinine 1.0 0.5 - 1.0 mg/dL 01/10/2024 7:30 AM EST LAB[facility]ATORY [facility] Estimated Glomerular Filtration Rate 61 >=60 mL/min 01/10/2024 7:30 AM EST LABORATORY [facility] Comment:eGFR is calculated b ased on the CKD-EPI 2020 equation Sodium 140 135 - 146 mmol/L 01/10/2024 7:30 AM EST LAB[facility]ATORY [facility] Potassium 4.6 3.5 - 5.1 mmol/L 01/10/2024 7:30 AM EST LAB[facility]ATORY [facility] Chloride 105 98 - 107 mmol/L 01/10/2024 7:30 AM EST LAB[facility]ATORY [facility] CO2 25 22 - 32 mmol/L 01/10/2024 7:30 AM EST LAB[facility]ATORY [facility] Anion Gap 10 7 - 15 mmol/L 01/10/2024 7:30 AM EST LAB[facility]ATORY [facility] Glucose 112 70 - 120 mg/dL 01/10/2024 7:30 AM EST LAB[facility]ATORY [facility] Calcium 8.5 8.4 - 10.2 mg/dL 01/10/2024 7:30 AM EST LAB[facility]ATORY [facility] Blood Venous blood specimen / Unknown Venipuncture / Unknown 01/10/2024 6:27 AM EST 01/10/2024 7:03 AM EST Romaine Tejada MD LAB BLOOD ORDERA BLES LABORATORY [facility] [address] [place] [address] * (ABNORMAL) CBC (01/10/2024 6:27 AM EST) WBC 14.32(H) 4.00 - 10.80 K/uL 01/10/2024 7:43 AM EST LABORATORY [facility] RBC 2.46 3.85 - 5.15 M/uL 01/10/2024 7:43 AM EST LAB[facility]ATORY [facility] HGB 7.6(L) 12.0 - 15.3 g/dL 01/10/2024 7:43 AM EST LAB[facility]ATORY [facility] HCT 24.6(L) 36.0 - 45.2 % 01/10/2024 7:43 AM EST LAB[facility]ATORY [facility] MCV 100.0 81.5 - 97.5 fL 01/10/2024 7:43 AM EST LAB[facility]ATORY [facility] MCH 30.9 27.0 - 34.0 pg 01/10/2024 7:43 AM EST LAB[facility]ATORY [facility] MCHC 30.9 32.0 - 36.0 g/dL 01/10/2024 7:43 AM EST LAB[facility]ATORY [facility] RDW 13.5 11.5 - 15.5 % 01/10/2024 7:43 AM EST LABORATORY [facility] PLT 591(H) 140 - 400 K/uL 01/10/2024 7:43 AM EST LAB[facility]ATORY [facility] MPV 8.4 6.6 - 11.1 fL 01/10/2024 7:43 AM EST LAB[facility]ATORY [facility] nRBCs 0 <=0 /100 WBCs 01/10/2024 7:43 AM EST LAB[facility]ATORY [facility] Blood Venous blood specimen / Unknown Venipuncture / Unknown 01/10/2024 6:27 AM EST 01/10/2024 7:13 AM EST Romaine Tejada MD LAB BLOOD ORDERA BLES Performing Organization Address City/[facility]/ZIP Co de Phone Number LABORATORY [facility] [place] [address] [place] [address] * PHOSPHORUS (01/09/2024 7:56 AM EST) Phosphorus 3.1 2.5 - 4.8 mg/dL 01/09/2024 8:46 AM EST LAB[facility]ATORY [facility] Blood Venous blood specimen / Unknown Venipuncture / Unknown 01/09/2024 7:56 AM EST 01/09/2024 8:20 AM EST Romaine Tejada MD LAB BLOOD ORDERA BLES LABORATORY [facility] [place] [address] [place] [address] * MAGNESIUM (01/09/2024 7:56 AM EST) Magnesium 2.0 1.5 - 2.6 mg/dL 01/09/2024 8:46 AM EST LAB[facility]ATORY [facility] Blood Venous blood specimen / Unknown Venipuncture / Unknown 01/09/2024 7:56 AM EST 01/09/2024 8:20 AM EST Romaine Tejada MD LAB BLOOD ORDERA BLES LAB[facility]ATORY [facility] [address] [place] [address] * (ABNORMAL) BASIC METABOLIC PANEL (01/09/2024 7:56 AM EST) BUN 18 6 - 20 mg/dL 01/09/2024 8:46 AM EST LAB[facility]ATORY [facility] Creatinine 1.1(H) 0.5 - 1.0 mg/dL 01/09/2024 8:46 AM EST LAB[facility]ATORY [facility] Estimated Glomerular Filtration Rate 55(L) >=60 mL/min 01/09/2024 8:46 AM EST LABORATORY [facility] Comment:eGFR is calculated b ased on the CKD-EPI 2020 equation Sodium 137 135 - 146 mmol/L 01/09/2024 8:46 AM EST LAB[facility]ATORY [facility] Potassium 4.5 3.5 - 5.1 mmol/L 01/09/2024 8:46 AM EST LAB[facility]ORY [facility] Chloride 102 98 - 107 mmol/L 01/09/2024 8:46 AM EST LAB[facility]ORY [facility] CO2 24 22 - 32 mmol/L 01/09/2024 8:46 AM EST LAB[facility]ATORY [facility] Anion Gap 11 7 - 15 mmol/L 01/09/2024 8:46 AM EST LAB[facility]ORY [facility] Glucose 111 70 - 120 mg/dL 01/09/2024 8:46 AM EST LAB[facility]ATORY [facility] Calcium 8.8 8.4 - 10.2 mg/dL 01/09/2024 8:46 AM EST LAB[facility]ATORY [facility] Blood Venous blood specimen / Unknown Venipuncture / Unknown 01/09/2024 7:56 AM EST 01/09/2024 8:20 AM EST Romaine Tejada MD LAB BLOOD ORDERA BLES LABORATORY [facility] [address] [place] [address] * (ABNORMAL) CBC (01/09/2024 7:56 AM EST) WBC 15.67(H) 4.00 - 10.80 K/uL 01/09/2024 8:27 AM EST LAB[facility]ATORY [facility] RBC 2.51 3.85 - 5.15 M/uL 01/09/2024 8:27 AM EST LAB[facility]ATORY [facility] HGB 7.7(L) 12.0 - 15.3 g/dL 01/09/2024 8:27 AM EST LAB[facility]ATORY [facility] HCT 24.6(L) 36.0 - 45.2 % 01/09/2024 8:27 AM EST LAB[facility]ATORY [facility] MCV 98.0 81.5 - 97.5 fL 01/09/2024 8:27 AM EST LAB[facility]ATORY [facility] MCH 30.7 27.0 - 34.0 pg 01/09/2024 8:27 AM EST LAB[facility]ATORY [facility] MCHC 31.3 32.0 - 36.0 g/dL 01/09/2024 8:27 AM EST LAB[facility]ATORY [facility] RDW 13.2 11.5 - 15.5 % 01/09/2024 8:27 AM EST LABORATORY [facility] PLT 583(H) 140 - 400 K/uL 01/09/2024 8:27 AM EST LAB[facility]ATORY [facility] MPV 8.4 6.6 - 11.1 fL 01/09/2024 8:27 AM EST LAB[facility]ATORY [facility] nRBCs 0 <=0 /100 WBCs 01/09/2024 8:27 AM EST LAB[facility]ORY [facility] Blood Venous blood specimen / Unknown Venipuncture / Unknown 01/09/2024 7:56 AM EST 01/09/2024 8:20 AM EST Romaine Tejada MD LAB BLOOD ORDERA BLES Performing Organization Address City/State/[facility] Co de Phone Number LABORATORY [facility] [address] [place] [address] * XR CHEST 1 VIEW (01/08/2024 6:45 AM EST) Anatomical Region Laterality Modality Chest Computed Radiogr aphy 01/08/2024 8:18 AM EST Impressions 01/08/2024 8:16 AM EST IMPRESSION 1. Decreasing pleural air component at the right lung base when compared to the previous exam, otherwise relatively stable examination as above. Narrative 01/08/2024 8:16 AM EST EXAM XR CHEST 1 VIEW - 01/08/2024 6:45 am HISTORY fu pneumothorax TECHNIQUE Single portable upright view the chest submitted for interpretation. COMPARISON 01/07/2024. FINDINGS Two right-sided chest tubes are stable in appearance. The tiny amount of pleural air in the right costophrenic sulcus appears less conspicuous on the current study. No discernible pneumothorax identified. Small amount of residual right-sided pleural thickening/pleural fluid. Cardiac size difficult to assess. Multiple patchy pulmonary nodules and right- sided pulmonary mass better evidenced on the prior CT. Remainder of examination is unchanged. Procedure Note Ciaran Duron MD - 01/08/2024 EXAM XR CHEST 1 VIEW - 01/08/2024 6:45 am HISTORY fu pneumothorax TECHNIQUE Single portable upright view the chest submitted for interpretation. COMPARISON 01/07/2024. FINDINGS Two right-sided chest tubes are stable in appearance. The tiny amount ofpleural air in the right costophrenic sulcus appears less conspicuous onthe current study. No discernible pneumothorax identified. Small amountof residual right-sided pleural thickening/pleural fluid. Cardiac size difficult to assess. Multiple patchy pulmonary nodules andright- sided pulmonary mass better evidenced on the prior CT. Remainder ofexamination is unchanged. IMPRESSION IMPRESSION 1. Decreasing pleural air component at the right lung base when comparedto the previous exam, otherwise relatively stable examination as above. Romaine Tejada MD RADIOLOGY (RAD G [facility]ER[place]) * PHOSPHORUS (01/08/2024 6:37 AM EST) Phosphorus 3.3 2.5 - 4.8 mg/dL 01/08/2024 7:18 AM EST LABORATORY [facility] [place] Blood Venous blood specimen / Unknown Venipuncture / Unknown 01/08/2024 6:37 AM EST 01/08/2024 6:47 AM EST Romaine Tejada MD LAB BLOOD ORDERA BLES LABORATORY [facility] [place] [address] [place] [address] * MAGNESIUM (01/08/2024 6:37 AM EST) Magnesium 2.0 1.5 - 2.6 mg/dL 01/08/2024 7:18 AM EST LABORATORY [facility] Blood Venous blood specimen / Unknown Venipuncture / Unknown 01/08/2024 6:37 AM EST 01/08/2024 6:47 AM EST Roamine Tejada MD LAB BLOOD ORDERA BLES Performing Organization Address City/[facility]/ZIP Co de Phone Number LABORATORY [facility] [address] [place] [address] * (ABNORMAL) BASIC METABOLIC PANEL (01/08/2024 6:37 AM EST) BUN 18 6 - 20 mg/dL 01/08/2024 7:18 AM EST LAB[facility]ATORY [facility] Creatinine 1.2(H) 0.5 - 1.0 mg/dL 01/08/2024 7:18 AM EST LAB[facility]ATORY [facility] Estimated Glomerular Filtration Rate 52(L) >=60 mL/min 01/08/2024 7:18 AM EST LABORATORY [facility] Comment:eGFR is calculated b ased on the CKD-EPI 2020 equation Sodium 138 135 - 146 mmol/L 01/08/2024 7:18 AM EST LAB[facility]ATORY [facility] Potassium 4.6 3.5 - 5.1 mmol/L 01/08/2024 7:18 AM EST LAB[facility]ORY [facility] Chloride 102 98 - 107 mmol/L 01/08/2024 7:18 AM EST LAB[facility] CO2 25 22 - 32 mmol/L 01/08/2024 7:18 AM EST LAB[facility]ATORY [facility] Anion Gap 11 7 - 15 mmol/L 01/08/2024 7:18 AM EST LAB[facility] Glucose 107 70 - 120 mg/dL 01/08/2024 7:18 AM EST LAB[facility]ORY [facility] Calcium 8.7 8.4 - 10.2 mg/dL 01/08/2024 7:18 AM EST LAB[facility]ATORY [facility] Blood Venous blood specimen / Unknown Venipuncture / Unknown 01/08/2024 6:37 AM EST 01/08/2024 6:47 AM EST Romaine Tejada MD LAB BLOOD ORDERA BLES Performing Organization Address City/[facility]/ZIP Co de Phone Number LABORATORY [facility] [address] [place] [address] * (ABNORMAL) CBC (01/08/2024 6:37 AM EST) WBC 14.33(H) 4.00 - 10.80 K/uL 01/08/2024 6:58 AM EST LAB[facility]ATORY [facility] RBC 2.61 3.85 - 5.15 M/uL 01/08/2024 6:58 AM EST LAB[facility]ATORY [facility] HGB 8.1(L) 12.0 - 15.3 g/dL 01/08/2024 6:58 AM EST LAB[facility]ATORY [facility] HCT 25.7(L) 36.0 - 45.2 % 01/08/2024 6:58 AM EST LAB[facility]ATORY [facility] MCV 98.5 81.5 - 97.5 fL 01/08/2024 6:58 AM EST LAB[facility]ORY [facility] MCH 31.0 27.0 - 34.0 pg 01/08/2024 6:58 AM EST LAB[facility]ORY [facility] MCHC 31.5 32.0 - 36.0 g/dL 01/08/2024 6:58 AM EST LAB[facility]ATORY [facility] RDW 12.9 11.5 - 15.5 % 01/08/2024 6:58 AM EST LAB[facility]ATORY [facility] PLT 581(H) 140 - 400 K/uL 01/08/2024 6:58 AM EST LAB[facility]ORY [facility] MPV 8.3 6.6 - 11.1 fL 01/08/2024 6:58 AM EST LAB[facility]ATORY [facility] nRBCs 0 <=0 /100 WBCs 01/08/2024 6:58 AM EST LAB[facility]ORY [facility] Blood Venous blood specimen / Unknown Venipuncture / Unknown 01/08/2024 6:37 AM EST 01/08/2024 6:47 AM EST Romaine Tejada MD LAB BLOOD ORDERA BLES LABORATORY [facility] [address] [place] [address] * PHOSPHORUS (01/07/2024 7:10 AM EST) Phosphorus 2.8 2.5 - 4.8 mg/dL 01/07/2024 7:53 AM EST LAB[facility]ATORY [facility] Blood Venous blood specimen / Unknown Venipuncture / Unknown 01/07/2024 7:10 AM EST 01/07/2024 7:25 AM EST Romaine Tejada MD LAB BLOOD ORDERA BLES Performing Organization Address [facility]/ZIP Co de Phone Number LABORATORY [facility] [address] [place] [address] * MAGNESIUM (01/07/2024 7:10 AM EST) Magnesium 2.0 1.5 - 2.6 mg/dL 01/07/2024 7:53 AM EST LAB[facility]ATORY [facility] Blood Venous blood specimen / Unknown Venipuncture / Unknown 01/07/2024 7:10 AM EST 01/07/2024 7:25 AM EST Romaine Tejada MD LAB BLOOD ORDERA BLES Performing Organization Address [facility] Co de Phone Number LABORATORY [facility] [address] [place] [address] * (ABNORMAL) BASIC METABOLIC PANEL (01/07/2024 7:10 AM EST) BUN 19 6 - 20 mg/dL 01/07/2024 7:53 AM EST LAB[facility]ATORY [facility] Creatinine 1.2(H) 0.5 - 1.0 mg/dL 01/07/2024 7:53 AM EST LAB[facility]ATORY [facility] Estimated Glomerular Filtration Rate 51(L) >=60 mL/min 01/07/2024 7:53 AM EST LAB[facility]ATORY [facility] Comment:eGFR is calculated b ased on the CKD-EPI 2020 equation Sodium 138 135 - 146 mmol/L 01/07/2024 7:53 AM EST LAB[facility] Potassium 4.5 3.5 - 5.1 mmol/L 01/07/2024 7:53 AM EST LAB[facility] Chloride 102 98 - 107 mmol/L 01/07/2024 7:53 AM EST LAB[facility] CO2 25 22 - 32 mmol/L 01/07/2024 7:53 AM EST LAB[facility] Anion Gap 11 7 - 15 mmol/L 01/07/2024 7:53 AM EST LAB[facility] Glucose 104 70 - 120 mg/dL 01/07/2024 7:53 AM EST LAB[facility]ORY [facility] Calcium 8.7 8.4 - 10.2 mg/dL 01/07/2024 7:53 AM EST LAB[facility]ORY [facility] Blood Venous blood specimen / Unknown Venipuncture / Unknown 01/07/2024 7:10 AM EST 01/07/2024 7:25 AM EST Romaine Tejada MD LAB BLOOD ORDERA BLES LAB[facility]ATORY [facility] [address] [place] [address] * (ABNORMAL) CBC (01/07/2024 7:10 AM EST) WBC 15.03(H) 4.00 - 10.80 K/uL 01/07/2024 7:36 AM EST LAB[facility]ATORY [facility] RBC 2.58 3.85 - 5.15 M/uL 01/07/2024 7:36 AM EST LAB[facility]ATORY [facility] HGB 7.9(L) 12.0 - 15.3 g/dL 01/07/2024 7:36 AM EST LAB[facility] HCT 25.2(L) 36.0 - 45.2 % 01/07/2024 7:36 AM EST LAB[facility] MCV 97.7 81.5 - 97.5 fL 01/07/2024 7:36 AM EST LAB[facility]ORY [facility] MCH 30.6 27.0 - 34.0 pg 01/07/2024 7:36 AM EST LAB[facility] MCHC 31.3 32.0 - 36.0 g/dL 01/07/2024 7:36 AM EST LAB[facility]ORY [facility] RDW 13.2 11.5 - 15.5 % 01/07/2024 7:36 AM EST LAB[facility]ATORY [facility] PLT 589(H) 140 - 400 K/uL 01/07/2024 7:36 AM EST LAB[facility] MPV 8.4 6.6 - 11.1 fL 01/07/2024 7:36 AM EST LAB[facility]ORY [facility] nRBCs 0 <=0 /100 WBCs 01/07/2024 7:36 AM EST LAB[facility] Blood Venous blood specimen / Unknown Venipuncture / Unknown 01/07/2024 7:10 AM EST 01/07/2024 7:26 AM EST Romaine Tejada MD LAB BLOOD ORDERA BLES LABORATORY [facility] [place] [address] [place] [address] * XR CHEST 1 VIEW (01/07/2024 6:38 AM EST) Anatomical Region Laterality Modality Chest Computed Radiogr aphy 01/07/2024 9:16 AM EST Impressions 01/07/2024 9:14 AM EST IMPRESSION Possible trace residual right basilar pneumothorax. Right-sided pulmonary mass and multiple lateral pulmonary nodules, better evidenced on the prior CT. Narrative 01/07/2024 9:14 AM EST EXAM XR CHEST 1 VIEW - 01/07/2024 6:38 am HISTORY fu pneumothorax TECHNIQUE Single portable semi upright view the chest submitted for interpretation. COMPARISON CT dated 12/27/2023. FINDINGS Right-sided chest tubes are present, stable. Small collection of air in the right lateral costophrenic sulcus could represent a tiny amount of pleural air/pneumothorax. Right-sided pulmonary lesions and multiple bilateral pulmonary nodules better evidenced on the prior chest x-ray. Associated right pleural fluid/thickening. No pneumothorax. Osseous structures stable from the prior CT. Procedure Note Ciaran Duron MD - 01/07/2024 EXAM XR CHEST 1 VIEW - 01/07/2024 6:38 am HISTORY fu pneumothorax TECHNIQUE Single portable semi upright view the chest submitted forinterpretation. COMPARISON CT dated 12/27/2023. FINDINGS Right-sided chest tubes are present, stable. Small collection of air inthe right lateral costophrenic sulcus could represent a tiny amount ofpleural air/pneumothorax. Right-sided pulmonary lesions and multiplebilateral pulmonary nodules better evidenced on the prior chest x-ray.Associated right pleural fluid/thickening. No pneumothorax. Osseousstructures stable from the prior CT. IMPRESSION IMPRESSION Possible trace residual right basilar pneumothorax. Right-sided pulmonary mass and multiple lateral pulmonary nodules, betterevidenced on the prior CT. Romaine Tejada MD RADIOLOGY (RAD G ENERAL) * XR CHEST 1 VIEW (01/06/2024 6:00 AM EST) Anatomical Region Laterality Modality Chest Computed Radiogr aphy 01/06/2024 8:28 AM EST Impressions 01/06/2024 8:26 AM EST IMPRESSION Stable moderate right pleural effusion with associated atelectasis. Right chest tubes in stable position. Narrative 01/06/2024 8:26 AM EST EXAM XR CHEST 1 VIEW-01/06/2024 6:00 am HISTORY chest tubes fu COMPARISON Chest radiograph 01/05/2024. TECHNIQUE Semi-upright AP view of the chest. FINDINGS Lines/Tubes/Devices: 2 right-sided chest tubes in similar position. Lungs/Pleura: Similar moderate right pleural effusion with associated atelectasis. The left lung is clear. No discernible pneumothorax. Heart/Mediastinum: Stable cardiomegaly. Bones/Soft Tissues: Degenerative osseous changes. No acute osseous abnormality. Upper Abdomen: Visualized portions are unremarkable. Procedure Note Fredy Mason MD - 01/06/2024 EXAM XR CHEST 1 VIEW-01/06/2024 6:00 am HISTORY chest tubes fu COMPARISON Chest radiograph 01/05/2024. TECHNIQUE Semi-upright AP view of the chest. FINDINGS Lines/Tubes/Devices: 2 right-sided chest tubes in similar position. Lungs/Pleura: Similar moderate right pleural effusion with associatedatelectasis. The left lung is clear. No discernible pneumothorax. Heart/Mediastinum: Stable cardiomegaly. Bones/Soft Tissues: Degenerative osseous changes. No acute osseousabnormality. Upper Abdomen: Visualized portions are unremarkable. IMPRESSION IMPRESSION Stable moderate right pleural effusion with associated atelectasis. Rightchest tubes in stable position. Romaine Tejada MD RADIOLOGY (RAD G ENERAL) * PHOSPHORUS (01/06/2024 6:00 AM EST) Phosphorus 3.2 2.5 - 4.8 mg/dL 01/06/2024 6:47 AM EST LABORATORY C Blood Venous blood specimen / Unknown Venipuncture / Unknown 01/06/2024 6:00 AM EST 01/06/2024 6:18 AM EST Romaine Tejada MD LAB BLOOD ORDERA BLES Performing Organization Address City/[facility]/ZIP Co de Phone Number LABORATORY [facility] [address] [place] [address] * MAGNESIUM (01/06/2024 6:00 AM EST) Magnesium 2.1 1.5 - 2.6 mg/dL 01/06/2024 6:47 AM EST LABORATORY [facility] Blood Venous blood specimen / Unknown Venipuncture / Unknown 01/06/2024 6:00 AM EST 01/06/2024 6:18 AM EST Romaine Tejada MD LAB BLOOD ORDERA BLES Performing Organization Address [facility] Co de Phone Number LABORATORY [facility] [place] [address] [place] [address] * (ABNORMAL) BASIC METABOLIC PANEL (01/06/2024 6:00 AM EST) BUN 25(H) 6 - 20 mg/dL 01/06/2024 6:47 AM EST LAB[facility]ATORY [facility] Creatinine 1.4(H) 0.5 - 1.0 mg/dL 01/06/2024 6:47 AM EST LAB[facility]ATORY [facility] Estimated Glomerular Filtration Rate 43(L) >=60 mL/min 01/06/2024 6:47 AM EST LABORATORY [facility] Comment:eGFR is calculated b ased on the CKD-EPI 2020 equation Sodium 140 135 - 146 mmol/L 01/06/2024 6:47 AM EST LAB[facility]ATORY [facility] Potassium 4.5 3.5 - 5.1 mmol/L 01/06/2024 6:47 AM EST LAB[facility] Chloride 104 98 - 107 mmol/L 01/06/2024 6:47 AM EST LAB[facility] CO2 24 22 - 32 mmol/L 01/06/2024 6:47 AM EST LAB[facility] Anion Gap 12 7 - 15 mmol/L 01/06/2024 6:47 AM EST LAB[facility] Glucose 105 70 - 120 mg/dL 01/06/2024 6:47 AM EST LAB[facility]ORY [facility] Calcium 8.2(L) 8.4 - 10.2 mg/dL 01/06/2024 6:47 AM EST LAB[facility] Blood Venous blood specimen / Unknown Venipuncture / Unknown 01/06/2024 6:00 AM EST 01/06/2024 6:18 AM EST Romaine Tejada MD LAB BLOOD ORDERA BLES LAB[facility]ATORY [facility] [address] [place] [address] * (ABNORMAL) CBC (01/06/2024 6:00 AM EST) WBC 15.09(H) 4.00 - 10.80 K/uL 01/06/2024 6:30 AM EST LAB[facility]ATORY [facility] RBC 2.47 3.85 - 5.15 M/uL 01/06/2024 6:30 AM EST LAB[facility] HGB 7.6(L) 12.0 - 15.3 g/dL 01/06/2024 6:30 AM EST LAB[facility] HCT 24.3(L) 36.0 - 45.2 % 01/06/2024 6:30 AM EST LAB[facility] MCV 98.4 81.5 - 97.5 fL 01/06/2024 6:30 AM EST LAB[facility] MCH 30.8 27.0 - 34.0 pg 01/06/2024 6:30 AM EST LAB[facility] MCHC 31.3 32.0 - 36.0 g/dL 01/06/2024 6:30 AM EST LAB[facility] RDW 13.2 11.5 - 15.5 % 01/06/2024 6:30 AM EST LAB[facility]ATORY [facility] PLT 524(H) 140 - 400 K/uL 01/06/2024 6:30 AM EST [facility] MPV 8.5 6.6 - 11.1 fL 01/06/2024 6:30 AM EST LAB[facility] nRBCs 0 <=0 /100 WBCs 01/06/2024 6:30 AM EST [facility] Blood Venous blood specimen / Unknown Venipuncture / Unknown 01/06/2024 6:00 AM EST 01/06/2024 6:18 AM EST Romaine Tejada MD LAB BLOOD ORDERA BLES LABORATORY [facility] [address] [place] [address] * EKG (01/06/2024 5:27 AM EST) 01/06/2024 5:27 AM EST Narrative Procedure Note Luis Hernandez, DO - 01/06/2024 5:27 AM EST REASON FOR STUDY: CHEST PAIN CONCLUSIONS: Normal sinus rhythm Ventricular Rate: 85 Atrial Rate: 85 MA Interval: 146 QRS Duration: 92 QT/QTc: 376/447 ms P-R-T [place]: 24 : 2 : 0 degrees Minesh Sena MD EKG Performing Organization Address City/[facility] Co de Phone Number [facility] CARDIOLOG[facility] * XR CHEST 1 VIEW (01/05/2024 1:26 PM EST) Anatomical Region Laterality Modality Chest Computed Radiogr aphy 01/05/2024 2:01 PM EST Impressions 01/05/2024 2:13 PM EST IMPRESSION Slight interval decrease of right pleural effusion with adjacent lung collapse. I have personally reviewed this examination and agree with the resident/fellow physician's interpretation. Narrative 01/05/2024 2:13 PM EST EXAM XR CHEST 1 VIEW-01/05/2024 1:26 pm HISTORY f/u VATS COMPARISON Chest x-ray 01/05/2024. TECHNIQUE Single portable frontal view of the chest. FINDINGS Lines/Tubes: Two right-sided chest drainage catheters with tips projecting over the right apex and right hilum. Lungs/Pleura: Interval slight decrease of right pleural effusion with adjacent lung collapse. No pneumothorax. Heart/Mediastinum: Stable cardiomegaly. Bones/Soft Tissues: Unremarkable. Upper Abdomen: Visualized portions are unremarkable. Procedure Note Hussain Darnell, DO - 01/05/2024 EXAM XR CHEST 1 VIEW-01/05/2024 1:26 pm HISTORY f/u VATS COMPARISON Chest x-ray 01/05/2024. TECHNIQUE Single portable frontal view of the chest. FINDINGS Lines/Tubes: Two right-sided chest drainage catheters with tipsprojecting over the right apex and right hilum. Lungs/Pleura: Interval slight decrease of right pleural effusion withadjacent lung collapse. No pneumothorax. Heart/Mediastinum: Stable cardiomegaly. Bones/Soft Tissues: Unremarkable. Upper Abdomen: Visualized portions are unremarkable. IMPRESSION IMPRESSION Slight interval decrease of right pleural effusion with adjacent lungcollapse. I have personally reviewed this examination and agree with the resident/fellow physician's interpretation. Unique [facility] ([facility]) * PHOSPHORUS (01/05/2024 8:22 AM EST) Phosphorus 4.8 2.5 - 4.8 mg/dL 01/05/2024 8:55 AM EST LABORATORY [facility] Blood Venous blood specimen / Unknown Venipuncture / Unknown 01/05/2024 8:22 AM EST 01/05/2024 8:28 AM EST Romaine Tejada MD LAB BLOOD ORDERA BLES Performing Organization Address City/[facility]/ZIP Co de Phone Number LABORATORY [facility] [address] [place] [address] * MAGNESIUM (01/05/2024 8:22 AM EST) Magnesium 2.2 1.5 - 2.6 mg/dL 01/05/2024 8:55 AM EST LABORATORY [facility] Blood Venous blood specimen / Unknown Venipuncture / Unknown 01/05/2024 8:22 AM EST 01/05/2024 8:28 AM EST Romaine Tejada MD LAB BLOOD ORDERA BLES Performing Organization Address City/[facility]/ZIP Co de Phone Number LABORATORY [facility] [address] [place] [address] * (ABNORMAL) BASIC METABOLIC PANEL (01/05/2024 8:22 AM EST) BUN 28(H) 6 - 20 mg/dL 01/05/2024 8:55 AM EST LABORATORY [facility] Creatinine 1.5(H) 0.5 - 1.0 mg/dL 01/05/2024 8:55 AM EST LABORATORY [facility] Estimated Glomerular Filtration Rate 40(L) >=60 mL/min 01/05/2024 8:55 AM EST LABORATORY [facility] Comment:eGFR is calculated b ased on the CKD-EPI 2020 equation Sodium 137 135 - 146 mmol/L 01/05/2024 8:55 AM EST LABORATORY [facility] Potassium 4.9 3.5 - 5.1 mmol/L 01/05/2024 8:55 AM EST LABORATORY [facility] Chloride 102 98 - 107 mmol/L 01/05/2024 8:55 AM EST LABORATORY [facility] CO2 21(L) 22 - 32 mmol/L 01/05/2024 8:55 AM EST LABORATORY [facility] Anion Gap 14 7 - 15 mmol/L 01/05/2024 8:55 AM EST LABORATORY [facility] Glucose 104 70 - 120 mg/dL 01/05/2024 8:55 AM EST LABORATORY [facility] Calcium 8.7 8.4 - 10.2 mg/dL 01/05/2024 8:55 AM EST LABORATORY [facility] Blood Venous blood specimen / Unknown Venipuncture / Unknown 01/05/2024 8:22 AM EST 01/05/2024 8:28 AM EST Romaine Tejada MD LAB BLOOD ORDERA BLES LABORATORY [facility] [address] [place] [address] * (ABNORMAL) CBC (01/05/2024 8:22 AM EST) WBC 18.13(H) 4.00 - 10.80 K/uL 01/05/2024 8:36 AM EST LABORATORY [facility] RBC 2.67 3.85 - 5.15 M/uL 01/05/2024 8:36 AM EST LABORATORY [facility] HGB 8.3(L) 12.0 - 15.3 g/dL 01/05/2024 8:36 AM EST LABORATORY [facility] HCT 25.7(L) 36.0 - 45.2 % 01/05/2024 8:36 AM EST LABORATORY [facility] MCV 96.3 81.5 - 97.5 fL 01/05/2024 8:36 AM EST LABORATORY [facility] MCH 31.1 27.0 - 34.0 pg 01/05/2024 8:36 AM EST LABORATORY [facility] MCHC 32.3 32.0 - 36.0 g/dL 01/05/2024 8:36 AM EST LAB[facility]ATORY [facility] RDW 13.1 11.5 - 15.5 % 01/05/2024 8:36 AM EST LABORATORY [facility] PLT 486(H) 140 - 400 K/uL 01/05/2024 8:36 AM EST LABORATORY [facility] MPV 8.6 6.6 - 11.1 fL 01/05/2024 8:36 AM EST LABORATORY [facility] nRBCs 0 <=0 /100 WBCs 01/05/2024 8:36 AM EST LAB[facility]ATORY [facility] Blood Venous blood specimen / Unknown Venipuncture / Unknown 01/05/2024 8:22 AM EST 01/05/2024 8:29 AM EST Romaine Tejada MD LAB BLOOD ORDERA BLES Performing Organization Address City/State/[facility] Co de Phone Number LABORATORY [facility] [address] [place] [address] * XR CHEST 1 VIEW (01/05/2024 7:31 AM EST) Anatomical Region Laterality Modality Chest Computed Radiogr aphy 01/05/2024 7:45 AM EST Impressions 01/05/2024 7:42 AM EST IMPRESSION: Unchanged right effusion and consolidation which is most likely atelectasis. Narrative 01/05/2024 7:42 AM EST EXAM: XR CHEST 1 VIEW - 01/05/2024 7:31 am HISTORY: s/p CT surgery TECHNIQUE: Single portable AP view of the chest COMPARISON: Chest x-ray from 01/04/2024 FINDINGS: Catheters/tubes/devices/foreign bodies: 2 right-sided chest tubes with cephalad facing tips projecting over the right hilum and right apex. Low lung volumes. Right-sided effusion and consolidation unchanged. No evidence of measurable pneumothorax. Cardiomediastinal silhouette is within normal limits. Osseous structures are unremarkable. Procedure Note Hussain Darnell DO - 01/05/2024 EXAM: XR CHEST 1 VIEW - 01/05/2024 7:31 am HISTORY: s/p CT surgery TECHNIQUE: Single portable AP view of the chest COMPARISON: Chest x-ray from 01/04/2024 FINDINGS: Catheters/tubes/devices/foreign bodies: 2 right-sided chest tubes withcephalad facing tips projecting over the right hilum and right apex. Low lung volumes. Right-sided effusion and consolidation unchanged. No evidence of measurable pneumothorax. Cardiomediastinal silhouette is within normal limits. Osseous structures are unremarkable. IMPRESSION IMPRESSION: Unchanged right effusion and consolidation which is most likelyatelectasis. Romaine Tejada MD RADIOLOGY (RAD G ENERAL) * (ABNORMAL) CBC (01/04/2024 10:45 PM EST) WBC 18.91(H) 4.00 - 10.80 K/uL 01/05/2024 12:08 AM EST LABORATORY [facility] RBC 2.76 3.85 - 5.15 M/uL 01/05/2024 12:08 AM EST LABORATORY [facility] HGB 8.5(L) 12.0 - 15.3 g/dL 01/05/2024 12:08 AM EST LABORATORY [facility] HCT 26.3(L) 36.0 - 45.2 % 01/05/2024 12:08 AM EST LABORATORY [facility] MCV 95.3 81.5 - 97.5 fL 01/05/2024 12:08 AM EST LAB[facility]ATORY [facility] MCH 30.8 27.0 - 34.0 pg 01/05/2024 12:08 AM EST LAB[facility]ATORY [facility] MCHC 32.3 32.0 - 36.0 g/dL 01/05/2024 12:08 AM EST LABORATORY [facility] RDW 13.0 11.5 - 15.5 % 01/05/2024 12:08 AM EST LABORATORY [facility] PLT 488(H) 140 - 400 K/uL 01/05/2024 12:08 AM EST LABORATORY [facility] MPV 8.5 6.6 - 11.1 fL 01/05/2024 12:08 AM EST LABORATORY [facility] nRBCs 0 <=0 /100 WBCs 01/05/2024 12:08 AM EST LABORATORY [facility] Blood Venous blood specimen / Unknown Venipuncture / Unknown 01/04/2024 10:45 PM EST 01/04/2024 10:58 PM EST Jose Campbell Palacios DO LAB BLOOD ORDER JAMSHID LABORATORY [facility] [address] [place] [address] * XR CHEST 1 VIEW (01/04/2024 3:49 PM EST) Anatomical Region Laterality Modality Chest Computed Radiogr aphy 01/04/2024 3:57 PM EST Impressions 01/04/2024 3:55 PM EST IMPRESSION 1. Interval decrease in size right pleural effusion. Two right-sided chest tubes without pneumothorax. Narrative 01/04/2024 3:55 PM EST EXAM Chest 1 View - 01/04/2024 3:49 pm HISTORY R VATS COMPARISON 12/30/2023 TECHNIQUE Portable semi-upright AP view of the chest was obtained. FINDINGS Lines and Tubes: 2 right-sided chest tubes with tips projecting over upper right and middle right hemithorax. Foreign bodies: None. Interval decrease in size right pleural effusion with overlying atelectasis. No pneumothorax. Mild right subcutaneous emphysema. Likely small left pleural effusion. Cardiomediastinal silhouette is largely obscured. Procedure Note Jewel Mckinley DO - 01/04/2024 EXAM Chest 1 View - 01/04/2024 3:49 pm HISTORY R VATS COMPARISON 12/30/2023 TECHNIQUE Portable semi-upright AP view of the chest was obtained. FINDINGS Lines and Tubes: 2 right-sided chest tubes with tips projecting over upperright and middle right hemithorax. Foreign bodies: None. Interval decrease in size right pleural effusion with overlyingatelectasis. No pneumothorax. Mild right subcutaneous emphysema. Likelysmall left pleural effusion. Cardiomediastinal silhouette is largelyobscured. IMPRESSION IMPRESSION 1. Interval decrease in size right pleural effusion. Two right-sidedchest tubes without pneumothorax. Walt Licona MD RADIOLOGY (RAD GENER AL) * (ABNORMAL) WHOLE BLOOD PROFILE, ARTERIAL (01/04/2024 2:02 PM EST) Temperature 37.0 C 01/04/2024 2:14 PM EST LABORATORY [facility] pH, Arterial 7.370 7.350 - 7.450 units 01/04/2024 2:14 PM EST LABORATORY [facility] pCO2, Arterial 45.6(H) 35.0 - 45.0 mmHg 01/04/2024 2:14 PM EST LAB[facility]ATORY [facility] pO2, Arterial 88.4 75.0 - 100.0 mmHg 01/04/2024 2:14 PM EST LABORATORY [facility] Base Excess, Arterial 0.9 -2.0 - 2.0 mmol/L 01/04/2024 2:14 PM EST LABORATORY [facility] Hemoglobin, Whole Blood 8.5(L) 12.0 - 15.3 g/dL 01/04/2024 2:14 PM EST LABORATORY [facility] Hematocrit, Whole Blood 26.4(L) 36.0 - 45.2 % 01/04/2024 2:14 PM EST LABORATORY [facility] Comment: The Hematocrit reference interval is based on adult population. This method is intended for trending and screening purposes only. A "Complete Blood Count" is more accurate and should be ordered if clinically indicated. Oxyhemoglobin, Arterial 94.8 94.0 - 99.0 % total Hgb 01/04/2024 2:14 PM EST LABORATORY [facility] Carboxyhemoglob in, Whole Blood 2.1(H) <=1.5 % total Hgb 01/04/2024 2:14 PM EST LABORATORY [facility] Comment:Smokers: 0-9.0 % Methemoglobin, Whole Blood 0.6 <=1.5 % total Hgb 01/04/2024 2:14 PM EST LABORATORY [facility] Reduced Hemoglobin, Arterial 2.5 0.0 - 5.0 % total Hgb 01/04/2024 2:14 PM EST LABORATORY [facility] O2 Content, Arterial 11.5(L) 15.0 - 24.0 %vol 01/04/2024 2:14 PM EST LABORATORY [facility] Potassium, Whole Blood 4.8 3.5 - 5.1 mmol/L 01/04/2024 2:14 PM EST LABORATORY [facility] Sodium, Whole Blood 137 135 - 146 mmol/L 01/04/2024 2:14 PM EST LAB[facility]ATORY [facility] Chloride, Whole Blood 103 98 - 107 mmol/L 01/04/2024 2:14 PM EST LAB[facility]ATORY [facility] Calcium, Ionized, Whole Blood 1.17 1.13 - 1.32 mmol/L 01/04/2024 2:14 PM EST LABORATORY [facility] Anion Gap, Whole Blood 7.5 7.0 - 15.0 mmol/L 01/04/2024 2:14 PM EST LABORATORY [facility] Glucose, Whole Blood 121(H) 70 - 120 mg/dL 01/04/2024 2:14 PM EST LAB[facility]ATORY [facility] FiO2 Not Provided % 01/04/2024 2:14 PM EST LAB[facility]ATORY [facility] O2 Flow, Arterial Not Provided L/min 01/04/2024 2:14 PM EST LAB[facility]ATORY [facility] Bicarbonate, Whole Blood 25.7 23.0 - 31.0 mmol/L 01/04/2024 2:14 PM EST LAB[facility]ATORY [facility] Blood Arterial blood specimen / Unknown 01/04/2024 2:02 PM EST 01/04/2024 2:09 PM EST Romaine Valladares MD LAB BLOOD ORDERABL ES LABORATORY [facility] [address] [place] [address] * CYTOLOGY (01/04/2024 1:50 PM EST) Final Diagnosis A. Pleural fluid, Right, Cytology: Adequacy: Satisfactory for evaluation. Category: Benign. Interpretation: Mesothelial cells, macrophages, and mixed inflammatory cells. Other: Cellblock: The histological sections of the cellblock preparation show similar findings. No cells are positive for MOC 31, Carlos Eduardo EP4, Synaptophysin and TTF 1. CK7, WT1, and calretinin highlights mesothelial cells; CD68 highlights histiocytes. GOGO is weakly positive for mesothelial cells and BAP highlights mesothelial cells. The immunophenotype and morphology compatible with above diagnosis. 01/10/2024 11:30 AM EST LABORATORY [facility] Prior Cancer None 01/10/2024 11:30 AM EST LABORATORY [facility] Gross Description A. Pleural fluid, Right. Received fresh labeled with name:Troy Walsh and pleural fluid, right, and verified with the patient's name and date of . Received 40mls of bloody colored fluid. The specimen is prepared for cytospin(s) and cell block at [facility]. The cell block is submitted in cassette A1 and processed at [facility]. Prepared by: Formalin fixation time: 9 hours 01/10/2024 11:30 AM EST LABORATORY [facility] Performing Labs Robot Technician screening performed at [facility]), [address] [place] [id number]. Pathologist sign out performed at [facility] ([facility]), [facility] [place] [address]. 01/10/2024 11:30 AM EST LABORATORY [facility] Photographic images and diagrams represent mancuso findings in this case; they are not intended to replace a complete review of the final diagnostic report. The following statement applies to Flow Cytometry, Histology, In situ Hybridization Assays and Molecular Genetics. This test was developed and performed at [facility] and its performance characteristics determined by [facility]. It has not been cleared or approved by the U.S. Food and Drug Administration. The FDA has determined that such clearance or approval is not necessary. This test is used for clinical purposes. It should not be regarded as investigational or for research. Special stains, including histochemical stains, and studies using immunologic and SD methodology (where applicable) are performed with appropriate positive and negative control reactions. 01/10/2024 11:30 AM EST LABORATORY [facility] Body Fluid Right pleural fluid / Unknown 01/04/2024 1:50 PM EST 01/04/2024 3:23 PM EST Shorty Hidalgo MD LAB CYTOLOGY O RDERABLES LABORATORY [address] [address] * APTT (01/04/2024 1:38 PM EST) aPTT 01/04/2024 3:02 PM EST LABORATORY [facility] Comment: Improper fill of coag tube instrument errored Changed result: Previously reported as <20 seconds on 01/04/2024 at 1429 EST. Blood Arterial blood specimen / Unknown 01/04/2024 1:38 PM EST 01/04/2024 1:51 PM EST Narrative LABORATORY [facility] - 01/04/2024 3:02 PM EST Anticoagulation may affect testing. Refer to [facility] Test Catalog for a list of effects. Romaine Valladares MD LAB BLOOD ORDERABL ES Performing Organization Address City/[facility]/ZIP Co de Phone Number LABORATORY [facility] [address] [place] [address] * PREPARE PACKED RED BLOOD CELLS (01/04/2024 1:35 PM EST) Unit Product Code [id number] LABORATORY [facility] BLOOD BANK Unit Number [id number] LABO [facility] BLOOD BANK Unit ABO O LABORATORY [facility] BLOOD BANK Unit Rh POS LABORATORY [facility] BLOOD BANK Unit Crossmatch Compatible LABORATORY [facility] BLOOD BANK Unit Status RE LABORATO RY [facility] BLOOD BANK Unit Blood Type OPOS LABORATORY [facility] BLOOD BANK Unit Expiration [id number] LABORATORY [facility] BLOOD BANK Unit Barcode 5100 LABORAT ORY [facility] BLOOD BANK Unit Product Code [id number] LABORATORY [facility] BLOOD BANK Unit Number [id number] [facility] ABO O LABORATORY [facility] BLOOD BANK Unit Rh POS LABORATORY [facility] BLOOD BANK Unit Crossmatch Compatible LABORATORY [facility] BLOOD BANK Unit Status RE LABORATO RY [facility] BLOOD BANK Unit Blood Type OPOS LABORATORY [facility] BLOOD BANK Unit Expiration [id number] LABORATORY [facility] BLOOD BANK Unit Barcode 5100 LABORAT ORY [facility] BLOOD BANK 01/04/2024 1:35 PM EST Romaine Valladares MD BLD BANK PRODUCT O RDERABLES Performing Organization Address City/[facility]/ZIP Co de Phone Number LABORATORY [facility] BLOOD BANK [address] [place] [phone] * TRANSFUSE PACKED RED BLOOD CELLS (01/04/2024 1:21 PM EST) Romaine Valladares MD Ubaldo BANK TRANFUSE ORDERABLES * TRANSFUSE PACKED RED BLOOD CELLS (01/04/2024 12:59 PM EST) Romaine HEART BANK TRANFUSE ORDERABLES * PREPARE PACKED RED BLOOD CELLS (01/04/2024 12:40 PM EST) Unit Product Code [id number] LABORATORY [facility] BLOOD BANK Unit Number [id number] LABO RATORY [facility] BLOOD BANK Unit ABO O LABORATORY [facility] BLOOD BANK Unit Rh POS LABORATORY [facility] BLOOD BANK Unit Crossmatch Compatible LABORATORY [facility] BLOOD BANK Unit Status PT LABORATO RY [facility] BLOOD BANK Unit Blood Type OPOS LABORATORY [facility] BLOOD BANK Unit Expiration [id number] LABORATORY [facility] BLOOD BANK Unit Barcode 5100 LABORAT ORY [facility] BLOOD BANK Unit Product Code [id number] LABORATORY [facility] BLOOD BANK Unit Number [id number] LABO RATORY [facility] BLOOD BANK Unit ABO O LABORATORY [facility] BLOOD BANK Unit Rh POS LABORATORY [facility] BLOOD BANK Unit Crossmatch Compatible LABORATORY [facility] BLOOD BANK Unit Status PT LABORATO RY [facility] BLOOD BANK Unit Blood Type OPOS LABORATORY [facility] BLOOD BANK Unit Expiration [id number] LABORATORY [facility] BLOOD BANK Unit Barcode 5100 LABORAT ORY [facility] BLOOD BANK 01/04/2024 12:4 0 PM EST Romaine Valladares MD D BANK PRODUCT O RDERABLES LABORATORY [facility] BLOOD BANK [address] [place] [address] * SURGICAL PATHOLOGY (01/04/2024 12:28 PM EST) Final Diagnosis A. Right pleural nodule, biopsy: Pleural tissue with chronic inflammation and organizing blood clot B. Right pleura, biopsy: Pleural tissue with chronic inflammation and organizing blood clot C. Lung, right upper lobe, wedge resection: Organizing blood clot Lung parenchyma is not identified D. Right pleural nodule, biopsy: Pleural tissue with organizing blood clot E. Right pleura, biopsy: Pleural tissue with chronic inflammation and organizing blood clot F. Right pleura, biopsy #2: Pleural tissue with chronic inflammation and organizing blood clot G. Right pleura, biopsy #3: Pleural tissue with chronic inflammation and organizing blood clot 01/10/2024 3:10 PM EST LABORATORY [facility] Gross Description A. Pleural cavity, Right. Received lyles fresh for frozen with a container labeled with "Troy Milianpocamilo", "[id number]", "1955" and " right pleural nodule". Received is a yellow lobulated hemorrhagic irregular fragment of soft tissue, 1.5 x 1.0 x 0.7 cm. The fragment is inked green and trisected demonstrating homogeneous yellow cut surface. The specimen submitted entirely for frozen section in FSA1. Gross By: LUZ B. Pleural cavity, Right. Received fresh for frozen with a container labeled with "Troy Milianpocamilo", "[id number]", "1955" and " right pleura". Received is an aggregate of yellow lobulated hemorrhagic fragments of soft tissue, 4.2 cm in greatest dimension. Classification And Treatment Director sections submitted for frozen section in FSB1. Remaining specimen submitted entirely in cassettes B2-B3. Gross By: LUZ C. Lung, Right upper lobe. Received fresh with a container labeled with "Troy Milianpocamilo", "[id number]", "1955" and " right upper lobe wedge". Received is a red-purple collapsed lung wedge weighing less than 1 g, 2.6 x 2.2 x 0.4 cm with a staple line across 1 edge. The staple line is removed and the underlying tissue is inked green. The pleural surface is red-purple dusky roughened. The specimen is serially sectioned demonstrating red dusky hemorrhagic surface. The specimen is submitted entirely in 2 cassettes. Gross By: LUZ D. Pleural cavity, Right. Received fresh with a container labeled with "Troy Milianpocamilo", "[id number]", "1955" and " right pleural nodule". Received is a red-purple dusky hemorrhagic fragment of soft tissue, 1.5 cm in greatest dimension. The specimen submitted entirely intact in D1. Gross By: LUZ E. Pleural cavity, Right. Received fresh with a container labeled with "Troy Walsh", "[id number]", "1955" and " right pleural biopsy". Received is an aggregate of multiple red-purple, dusky hemorrhagic fragments of soft tissue, 4.5 x 4.0 x 1.5 cm. There is scant attached adipose tissue. The fragments are sectioned demonstrating dusky rubbery fibrinous soft tissue. Classification And Treatment Director sections submitted in 2 cassettes. Gross By: LUZ F. Pleural cavity, Right. Received fresh with a container labeled with "Troy Milianpocamilo", "[id number]", "1955" and " right pleural biopsy 2.". Received are 2 red-purple dusky fragments of soft tissue, 2.5 cm in aggregate. The larger fragment is bisected and the specimen is submitted entirely in cassette F1. Gross By: LUZ G. Pleural cavity, Right. Received fresh with a container labeled with "Troy Walsh", "[id number]", "1955" and " right pleural biopsy 3". Received is an aggregate of red-purple dusky fragments of soft tissue admixed with scant adipose tissue, 4.5 cm in greatest dimension. The specimen is serially sectioned and clearance representative sections submitted in cassette G1. Gross By: LUZ 01/10/2024 3:10 PM EST LABORATORY [facility] Microscopic Description H&E stains and immunostains are examined. Sections show fibroadipose tissue consistent with pleura with acute and chronic hemorrhage, neovascularizatio n, proliferating fibroblasts, and reactive mesothelium. There is moderate chronic inflammation. No malignancy identified. The immunostains for epithelial (AE1/3 and CK7) and mesothelial markers (Calretinin and WT1) highlight reactive mesothelial cells. There is intact expression of BAP1 in mesothelial cells consistent with reactive mesothelium. The TTF-1 stain is negative. Immunostains for CD3 and CD20 highlight mixed lymphocytic infiltrate consistent with chronic inflammation. 01/10/2024 3:10 PM EST LABORATORY [facility] Intraoperative Diagnosis A. Pleural cavity, Right. Pleura, biopsy Frozen Section/Intraoper ative Diagnosis: Right pleural nodule-benign pleura with fibrosis and chronic inflammation per Dr. Mckoy reported to Dr. Hidalgo on 01/04/2024 at 1238. B. Pleural cavity, Right. Pleura, biopsy Frozen Section/Intraoper ative Diagnosis: Right pleura-benign pleura with fibrosis and chronic inflammation per Dr. Mckoy reported to Dr. Hidalgo on 01/04/2024 at 1322 01/10/2024 3:10 PM EST LABORATORY [facility] Sign Out Location Pathologist sign out performed at [facility] ([facility]), [address] [place] [phone]. 01/10/2024 3:10 PM EST LABORATORY [facility] Photographic images and diagrams represent mancuso findings in this case; they are not intended to replace a complete review of the final diagnostic report. The following statement applies to Flow Cytometry, Histology, In situ Hybridization Assays and Molecular Genetics. This test was developed and performed at [facility] and its performance characteristics determined by [facility]. It has not been cleared or approved by the U.S. Food and Drug Administration. The FDA has determined that such clearance or approval is not necessary. This test is used for clinical purposes. It should not be regarded as investigational or for research. Special stains, including histochemical stains, and studies using immunologic and SD methodology (where applicable) are performed with appropriate positive and negative control reactions. 01/10/2024 3:10 PM EST LABORATORY [facility] Tissue Structure of right pleural cavity / Unknown 01/04/2024 12:28 PM EST 01/04/2024 12:37 PM EST Specimen from wound (specimen) Structure of right pleural cavity / Unknown 01/04/2024 1:12 PM EST 01/04/2024 1:22 PM EST Specimen from wound (specimen) Structure of upper lobe of right lung / Unknown 01/04/2024 1:21 PM EST 01/04/2024 3:21 PM EST Specimen from wound (specimen) Structure of right pleural cavity / Unknown 01/04/2024 1:24 PM EST 01/04/2024 3:21 PM EST Specimen from wound (specimen) Structure of right pleural cavity / Unknown 01/04/2024 1:25 PM EST 01/04/2024 3:21 PM EST Specimen from wound (specimen) Structure of right pleural cavity / Unknown 01/04/2024 2:04 PM EST 01/04/2024 3:21 PM EST Specimen from wound (specimen) Structure of right pleural cavity / Unknown 01/04/2024 2:30 PM EST 01/04/2024 3:21 PM EST Shorty Hidalgo MD LAB PATHOLOGY ORDERABLES LABORATORY [facility] [address] [place] [address] * (ABNORMAL) WHOLE BLOOD PROFILE, ARTERIAL (01/04/2024 12:15 PM EST) Temperature 37.0 C 01/04/2024 12:27 PM EST LABORATORY [facility] pH, Arterial 7.417 7.350 - 7.450 units 01/04/2024 12:27 PM EST LABORATORY [facility] pCO2, Arterial 41.9 35.0 - 45.0 mmHg 01/04/2024 12:27 PM EST LABORATORY [facility] pO2, Arterial 163.0(H) 75.0 - 100.0 mmHg 01/04/2024 12:27 PM EST LABORATORY [facility] Base Excess, Arterial 2.3(H) -2.0 - 2.0 mmol/L 01/04/2024 12:27 PM EST LABORATORY [facility] Hemoglobin, Whole Blood 7.5(L) 12.0 - 15.3 g/dL 01/04/2024 12:27 PM EST LABORATORY [facility] Hematocrit, Whole Blood 23.4(L) 36.0 - 45.2 % 01/04/2024 12:27 PM EST LABORATORY C Comment: The Hematocrit reference interval is based on adult population. This method is intended for trending and screening purposes only. A "Complete Blood Count" is more accurate and should be ordered if clinically indicated. Oxyhemoglobin, Arterial 96.8 94.0 - 99.0 % total Hgb 01/04/2024 12:27 PM EST LABORATORY [facility] Carboxyhemoglob in, Whole Blood 2.1(H) <=1.5 % total Hgb 01/04/2024 12:27 PM EST LABORATORY [facility] Comment:Smokers: 0-9.0 % Methemoglobin, Whole Blood 0.3 <=1.5 % total Hgb 01/04/2024 12:27 PM EST LABORATORY [facility] Reduced Hemoglobin, Arterial 0.8 0.0 - 5.0 % total Hgb 01/04/2024 12:27 PM EST LABORATORY [facility] O2 Content, Arterial 10.6(L) 15.0 - 24.0 %vol 01/04/2024 12:27 PM EST [facility] Potassium, Whole Blood 4.4 3.5 - 5.1 mmol/L 01/04/2024 12:27 PM EST [facility] Sodium, Whole Blood 138 135 - 146 mmol/L 01/04/2024 12:27 PM EST [facility] Chloride, Whole Blood 103 98 - 107 mmol/L 01/04/2024 12:27 PM EST [facility] Calcium, Ionized, Whole Blood 1.07(L) 1.13 - 1.32 mmol/L 01/04/2024 12:27 PM EST [facility] Anion Gap, Whole Blood 8.7 7.0 - 15.0 mmol/L 01/04/2024 12:27 PM EST [facility] Glucose, Whole Blood 95 70 - 120 mg/dL 01/04/2024 12:27 PM EST [facility] FiO2 Not Provided % 01/04/2024 12:27 PM EST [facility] O2 Flow, Arterial Not Provided L/min 01/04/2024 12:27 PM EST [facility] Bicarbonate, Whole Blood 26.5 23.0 - 31.0 mmol/L 01/04/2024 12:27 PM EST LABORATORY C Blood Arterial blood specimen / Unknown 01/04/2024 12:15 PM EST 01/04/2024 12:23 PM EST Romaine Valladares MD LAB BLOOD ORDERABL ES Performing Organization Address City/State/[facility] Co de Phone Number LABORATORY [facility] [address] [place] [address] * ABO/RH (01/04/2024 9:46 AM EST) ABO O 01/04/2024 11:18 AM EST LABORATORY [facility] BLOOD BANK Rh Positive 01/04/2024 11:18 AM EST LABORATORY [facility] BLOOD BANK Blood Venous blood specimen / Unknown Venipuncture / Unknown 01/04/2024 9:46 AM EST 01/04/2024 10:05 AM EST Shorty Hidalgo MD LAB BLOOD BANK TEST ORDERABLES Performing Organization Address [facility] Co de Phone Number LABORATORY [facility] BLOOD BANK [address] [place] [address] * TYPE AND SCREEN (01/04/2024 9:46 AM EST) ABO O 01/04/2024 11:16 AM EST LABORATORY C BLOOD BANK Rh Positive 01/04/2024 11:16 AM EST LABORATORY [facility] BLOOD BANK Red Blood Cell Antibody Screen Negative 01/04/2024 11:16 AM EST LABORATORY C BLOOD BANK Specimen Expiration Date 01/07/2024 23:59 01/04/2024 11:16 AM EST LABORATORY C BLOOD BANK Blood Venous blood specimen / Unknown Venipuncture / Unknown 01/04/2024 9:46 AM EST 01/04/2024 10:05 AM EST Shorty Hidalgo MD LAB BLOOD BANK TEST ORDERABLES Performing Organization Address [facility] de Phone Number LABORATORY [facility] BLOOD BANK [address] [place] [address] * PHOSPHORUS (01/04/2024 7:42 AM EST) Phosphorus 3.2 2.5 - 4.8 mg/dL 01/04/2024 8:41 AM EST [facility] Blood Venous blood specimen / Unknown Venipuncture / Unknown 01/04/2024 7:42 AM EST 01/04/2024 8:14 AM EST Romaine Tejada MD LAB BLOOD ORDERA BLES Performing Organization Address City/[facility] Co de Phone Number LABORATORY [facility] [address] [place] [address] * MAGNESIUM (01/04/2024 7:42 AM EST) Magnesium 1.9 1.5 - 2.6 mg/dL 01/04/2024 8:41 AM EST [facility] Blood Venous blood specimen / Unknown Venipuncture / Unknown 01/04/2024 7:42 AM EST 01/04/2024 8:14 AM EST Romaine Tejada MD LAB BLOOD ORDERA BLES [facility] [address] [place] [address] * (ABNORMAL) BASIC METABOLIC PANEL (01/04/2024 7:42 AM EST) BUN 21(H) 6 - 20 mg/dL 01/04/2024 8:41 AM EST [facility] Creatinine 1.3(H) 0.5 - 1.0 mg/dL 01/04/2024 8:41 AM EST LAB[facility] Estimated Glomerular Filtration Rate 48(L) >=60 mL/min 01/04/2024 8:41 AM EST [facility] Comment:eGFR is calculated b ased on the CKD-EPI 2020 equation Sodium 137 135 - 146 mmol/L 01/04/2024 8:41 AM EST [facility] Potassium 4.6 3.5 - 5.1 mmol/L 01/04/2024 8:41 AM EST [facility] Chloride 100 98 - 107 mmol/L 01/04/2024 8:41 AM EST [facility] CO2 25 22 - 32 mmol/L 01/04/2024 8:41 AM EST [facility] Anion Gap 12 7 - 15 mmol/L 01/04/2024 8:41 AM EST [facility] Glucose 101 70 - 120 mg/dL 01/04/2024 8:41 AM EST [facility] Calcium 8.9 8.4 - 10.2 mg/dL 01/04/2024 8:41 AM EST [facility] Blood Venous blood specimen / Unknown Venipuncture / Unknown 01/04/2024 7:42 AM EST 01/04/2024 8:14 AM EST Romaine Tejada MD LAB BLOOD ORDERA BLES Performing Organization Address City/[facility]/ZIP Co de Phone Number LAB[facility]ATORY [facility] [address] [place] [address] * (ABNORMAL) CBC (01/04/2024 7:42 AM EST) WBC 13.83(H) 4.00 - 10.80 K/uL 01/04/2024 8:24 AM EST [facility] RBC 2.84 3.85 - 5.15 M/uL 01/04/2024 8:24 AM EST [facility] HGB 8.7(L) 12.0 - 15.3 g/dL 01/04/2024 8:24 AM EST [facility] HCT 27.4(L) 36.0 - 45.2 % 01/04/2024 8:24 AM EST [facility] MCV 96.5 81.5 - 97.5 fL 01/04/2024 8:24 AM EST [facility] MCH 30.6 27.0 - 34.0 pg 01/04/2024 8:24 AM EST [facility] MCHC 31.8 32.0 - 36.0 g/dL 01/04/2024 8:24 AM EST [facility] RDW 12.5 11.5 - 15.5 % 01/04/2024 8:24 AM EST [facility] PLT 660(H) 140 - 400 K/uL 01/04/2024 8:24 AM EST [facility] MPV 8.3 6.6 - 11.1 fL 01/04/2024 8:24 AM EST [facility] nRBCs 0 <=0 /100 WBCs 01/04/2024 8:24 AM EST [facility] Blood Venous blood specimen / Unknown Venipuncture / Unknown 01/04/2024 7:42 AM EST 01/04/2024 8:15 AM EST Romaine Tejada MD LAB BLOOD ORDERA BLES Performing Organization Address City/State/[facility] Co de Phone Number LABORATORY [facility] [address] [place] [address] * PHOSPHORUS (01/03/2024 6:22 AM EST) Phosphorus 3.1 2.5 - 4.8 mg/dL 01/03/2024 7:13 AM EST [facility] Blood Venous blood specimen / Unknown Venipuncture / Unknown 01/03/2024 6:22 AM EST 01/03/2024 6:44 AM EST Romaine Tejada MD LAB BLOOD ORDERA BLES Performing Organization Address City/[facility]/ZIP Co de Phone Number [facility] [address] [place] [address] * MAGNESIUM (01/03/2024 6:22 AM EST) Magnesium 2.0 1.5 - 2.6 mg/dL 01/03/2024 7:13 AM EST [facility] Blood Venous blood specimen / Unknown Venipuncture / Unknown 01/03/2024 6:22 AM EST 01/03/2024 6:44 AM EST Romaine Tejada MD LAB BLOOD ORDERA BLES Performing Organization Address [facility] Co de Phone Number LABORATORY C [address] [place] [address] * (ABNORMAL) BASIC METABOLIC PANEL (01/03/2024 6:22 AM EST) BUN 20 6 - 20 mg/dL 01/03/2024 7:13 AM EST [facility] Creatinine 1.2(H) 0.5 - 1.0 mg/dL 01/03/2024 7:13 AM EST LAB[facility] Estimated Glomerular Filtration Rate 48(L) >=60 mL/min 01/03/2024 7:13 AM EST [facility] Comment:eGFR is calculated b ased on the CKD-EPI 2020 equation Sodium 139 135 - 146 mmol/L 01/03/2024 7:13 AM EST [facility] Potassium 4.4 3.5 - 5.1 mmol/L 01/03/2024 7:13 AM EST [facility] Chloride 101 98 - 107 mmol/L 01/03/2024 7:13 AM EST [facility] CO2 25 22 - 32 mmol/L 01/03/2024 7:13 AM EST [facility] Anion Gap 13 7 - 15 mmol/L 01/03/2024 7:13 AM EST [facility] Glucose 109 70 - 120 mg/dL 01/03/2024 7:13 AM EST [facility] Calcium 9.2 8.4 - 10.2 mg/dL 01/03/2024 7:13 AM EST [facility] Blood Venous blood specimen / Unknown Venipuncture / Unknown 01/03/2024 6:22 AM EST 01/03/2024 6:44 AM EST Romaine Tejada MD LAB BLOOD ORDERA BLES Performing Organization Address City/State/[facility] Co de Phone Number [facility] [address] [place] [address] * (ABNORMAL) CBC (01/03/2024 6:22 AM EST) WBC 12.93(H) 4.00 - 10.80 K/uL 01/03/2024 6:53 AM EST [facility] RBC 2.91 3.85 - 5.15 M/uL 01/03/2024 6:53 AM EST [facility] HGB 8.9(L) 12.0 - 15.3 g/dL 01/03/2024 6:53 AM EST [facility] HCT 28.4(L) 36.0 - 45.2 % 01/03/2024 6:53 AM EST [facility] MCV 97.6 81.5 - 97.5 fL 01/03/2024 6:53 AM EST [facility] MCH 30.6 27.0 - 34.0 pg 01/03/2024 6:53 AM EST [facility] MCHC 31.3 32.0 - 36.0 g/dL 01/03/2024 6:53 AM EST [facility] RDW 12.6 11.5 - 15.5 % 01/03/2024 6:53 AM EST [facility] PLT 671(H) 140 - 400 K/uL 01/03/2024 6:53 AM EST [facility] MPV 8.3 6.6 - 11.1 fL 01/03/2024 6:53 AM EST [facility] nRBCs 0 <=0 /100 WBCs 01/03/2024 6:53 AM EST [facility] Blood Venous blood specimen / Unknown Venipuncture / Unknown 01/03/2024 6:22 AM EST 01/03/2024 6:44 AM EST Romaine Tejada MD LAB BLOOD ORDERA BLES Performing Organization Address [facility] Co de Phone Number LABORATORY C [address] [place] [address] * PHOSPHORUS (01/02/2024 8:27 AM EST) Phosphorus 3.0 2.5 - 4.8 mg/dL 01/02/2024 9:14 AM EST [facility] Blood Venous blood specimen / Unknown Venipuncture / Unknown 01/02/2024 8:27 AM EST 01/02/2024 8:44 AM EST Romaine Tejada MD LAB BLOOD ORDERA BLES Performing Organization Address [facility] de Phone Number LABORATORY [facility] [address] [place] [address] * MAGNESIUM (01/02/2024 8:27 AM EST) Magnesium 2.0 1.5 - 2.6 mg/dL 01/02/2024 9:14 AM EST LABORATORY C Blood Venous blood specimen / Unknown Venipuncture / Unknown 01/02/2024 8:27 AM EST 01/02/2024 8:44 AM EST Romaine Tejada MD LAB BLOOD ORDERA BLES Performing Organization Address [facility] Co de Phone Number LABORATORY C [address] [place] [address] * (ABNORMAL) BASIC METABOLIC PANEL (01/02/2024 8:27 AM EST) BUN 22(H) 6 - 20 mg/dL 01/02/2024 9:14 AM EST LABORATORY [facility] Creatinine 1.3(H) 0.5 - 1.0 mg/dL 01/02/2024 9:14 AM EST LABORATORY [facility] Estimated Glomerular Filtration Rate 45(L) >=60 mL/min 01/02/2024 9:14 AM EST [facility] Comment:eGFR is calculated b ased on the CKD-EPI 2020 equation Sodium 139 135 - 146 mmol/L 01/02/2024 9:14 AM EST LAB[facility] Potassium 4.1 3.5 - 5.1 mmol/L 01/02/2024 9:14 AM EST [facility] Chloride 102 98 - 107 mmol/L 01/02/2024 9:14 AM EST [facility] CO2 27 22 - 32 mmol/L 01/02/2024 9:14 AM EST [facility] Anion Gap 10 7 - 15 mmol/L 01/02/2024 9:14 AM EST LAB[facility] Glucose 103 70 - 120 mg/dL 01/02/2024 9:14 AM EST [facility] Calcium 9.1 8.4 - 10.2 mg/dL 01/02/2024 9:14 AM EST [facility] Blood Venous blood specimen / Unknown Venipuncture / Unknown 01/02/2024 8:27 AM EST 01/02/2024 8:44 AM EST Romaine Tejada MD LAB BLOOD ORDERA BLES [facility] [address] [place] [address] * (ABNORMAL) CBC (01/02/2024 8:27 AM EST) WBC 11.82(H) 4.00 - 10.80 K/uL 01/02/2024 8:52 AM EST LAB[facility] RBC 3.01 3.85 - 5.15 M/uL 01/02/2024 8:52 AM EST [facility] HGB 9.1(L) 12.0 - 15.3 g/dL 01/02/2024 8:52 AM EST [facility] HCT 29.2(L) 36.0 - 45.2 % 01/02/2024 8:52 AM EST [facility] MCV 97.0 81.5 - 97.5 fL 01/02/2024 8:52 AM EST [facility] MCH 30.2 27.0 - 34.0 pg 01/02/2024 8:52 AM EST [facility] MCHC 31.2 32.0 - 36.0 g/dL 01/02/2024 8:52 AM EST LABORATORY [facility] RDW 12.4 11.5 - 15.5 % 01/02/2024 8:52 AM EST LABORATORY [facility] PLT 681(H) 140 - 400 K/uL 01/02/2024 8:52 AM EST LABORATORY [facility] MPV 8.1 6.6 - 11.1 fL 01/02/2024 8:52 AM EST LABORATORY [facility] nRBCs 0 <=0 /100 WBCs 01/02/2024 8:52 AM EST LABORATORY [facility] Blood Venous blood specimen / Unknown Venipuncture / Unknown 01/02/2024 8:27 AM EST 01/02/2024 8:44 AM EST Romaine Tejada MD LAB BLOOD ORDERA BLES Performing Organization Address City/[facility]/ZIP Co de Phone Number LABORATORY [facility] [address] [place] [address] * (ABNORMAL) FERRITIN (01/01/2024 7:32 AM EST) Ferritin 1,088(H) 13 - 150 ng/mL 01/01/2024 11:12 AM EST LABORATORY [facility] Comment:Postmenopausal women have higher ferritin levels than pre-menopausal women. The above reference interval is based on pre-menopausal women. Blood Venous blood specimen / Unknown Venipuncture / Unknown 01/01/2024 7:32 AM EST 01/01/2024 8:03 AM EST Guicho Lopes MD LAB BLOOD ORDERABL ES Performing Organization Address City/[facility]/ZIP Co de Phone Number LABORATORY [facility] [address] [place] [address] * (ABNORMAL) IRON SCREEN, INCLUDING TIBC (01/01/2024 7:32 AM EST) Iron 19(L) 33 - 151 ug/dL 01/01/2024 10:27 AM EST LABORATORY [facility] Iron Binding Capacity 176(L) 250 - 425 ug/dL 01/01/2024 10:27 AM EST LAB[facility]ATORY [facility] Transferrin Saturation Percent 11(L) 15 - 55 % 01/01/2024 10:27 AM EST LAB[facility] Blood Venous blood specimen / Unknown Venipuncture / Unknown 01/01/2024 7:32 AM EST 01/01/2024 8:03 AM EST Romaine Tejada MD LAB BLOOD ORDERA BLES Performing Organization Address City/State/[facility] Co de Phone Number LAB[facility]ATORY [facility] [address] [place] [address] * (ABNORMAL) CBC (01/01/2024 7:32 AM EST) WBC 10.40 4.00 - 10.80 K/uL 01/01/2024 8:14 AM EST LAB[facility]ATORY [facility] RBC 2.81 3.85 - 5.15 M/uL 01/01/2024 8:14 AM EST LAB[facility] HGB 8.5(L) 12.0 - 15.3 g/dL 01/01/2024 8:14 AM EST LAB[facility] HCT 27.5(L) 36.0 - 45.2 % 01/01/2024 8:14 AM EST LAB[facility] MCV 97.9 81.5 - 97.5 fL 01/01/2024 8:14 AM EST [facility] MCH 30.2 27.0 - 34.0 pg 01/01/2024 8:14 AM EST LAB[facility] MCHC 30.9 32.0 - 36.0 g/dL 01/01/2024 8:14 AM EST LAB[facility] RDW 12.4 11.5 - 15.5 % 01/01/2024 8:14 AM EST LAB[facility] PLT 648(H) 140 - 400 K/uL 01/01/2024 8:14 AM EST [facility] MPV 8.4 6.6 - 11.1 fL 01/01/2024 8:14 AM EST [facility] nRBCs 0 <=0 /100 WBCs 01/01/2024 8:14 AM EST [facility] Blood Venous blood specimen / Unknown Venipuncture / Unknown 01/01/2024 7:32 AM EST 01/01/2024 8:03 AM EST Jose Palacios DO LAB BLOOD ORDER JAMSHID [facility] [address] [place] [address] * (ABNORMAL) BASIC METABOLIC PANEL (01/01/2024 7:32 AM EST) BUN 23(H) 6 - 20 mg/dL 01/01/2024 8:30 AM EST LAB[facility]AT[facility] Creatinine 1.4(H) 0.5 - 1.0 mg/dL 01/01/2024 8:30 AM EST LAB[facility] Estimated Glomerular Filtration Rate 40(L) >=60 mL/min 01/01/2024 8:30 AM EST LAB[facility] Comment:eGFR is calculated b ased on the CKD-EPI 2020 equation Sodium 142 135 - 146 mmol/L 01/01/2024 8:30 AM EST LAB[facility] Potassium 4.2 3.5 - 5.1 mmol/L 01/01/2024 8:30 AM EST [facility] Chloride 103 98 - 107 mmol/L 01/01/2024 8:30 AM EST LAB[facility] CO2 27 22 - 32 mmol/L 01/01/2024 8:30 AM EST LAB[facility] Anion Gap 12 7 - 15 mmol/L 01/01/2024 8:30 AM EST [facility] Glucose 104 70 - 120 mg/dL 01/01/2024 8:30 AM EST [facility] Calcium 9.1 8.4 - 10.2 mg/dL 01/01/2024 8:30 AM EST [facility] Blood Venous blood specimen / Unknown Venipuncture / Unknown 01/01/2024 7:32 AM EST 01/01/2024 8:03 AM EST Jose Palacios DO LAB BLOOD ORDER JAMSHID [facility] [address] [place] [address] * US PELVIS TRANS-VAGINAL NON-OB (12/31/2023 10:57 PM EST) Anatomical Region Laterality Modality Pelvis, Body Ultrasound 12/31/2023 11:1 7 PM EST Impressions 12/31/2023 11:15 PM EST IMPRESSION: The patient was unable to tolerate endovaginal imaging. Transabdominal imaging is limited due to incomplete distension of the urinary bladder lumen. The ovaries are not adequately assessed. MRI of the female pelvis may be helpful. Narrative 12/31/2023 11:15 PM EST EXAM: US PELVIS TRANS-VAGINAL NON-OB - 12/31/2023 HISTORY: concern for pathologic ovarian enlargement on CT A/P. Concern for metastatic cancer TECHNIQUE: Endovaginal imaging could not be performed. Transabdominal imaging was attempted, but is limited. COMPARISON: None. FINDINGS: LMP: Postmenopausal UTERUS: Incompletely imaged. MYOMETRIUM: Incompletely imaged. ENDOMETRIUM: 7.9 mm. Thickened for a postmenopausal patient. RIGHT OVARY: x x , Not seen LEFT OVARY: x x , Not seen MISCELLANEOUS: No significant free fluid. Procedure Note Belem Andrade MD - 12/31/2023 EXAM: US PELVIS TRANS-VAGINAL NON-OB - 12/31/2023 HISTORY: concern for pathologic ovarian enlargement on CT A/P. Concern formetastatic cancer TECHNIQUE: Endovaginal imaging could not be performed. Transabdominal imaging wasattempted, but is limited. COMPARISON: None. FINDINGS: LMP: Postmenopausal UTERUS: Incompletely imaged. MYOMETRIUM: Incompletely imaged. ENDOMETRIUM: 7.9 mm. Thickened for a postmenopausal patient. RIGHT OVARY: x x , Not seen LEFT OVARY: x x , Not seen MISCELLANEOUS: No significant free fluid. IMPRESSION IMPRESSION: The patient was unable to tolerate endovaginal imaging. Transabdominalimaging is limited due to incomplete distension of the urinary bladderlumen. The ovaries are not adequately assessed. MRI of the female pelvismay be helpful. Jose Palacios DO RAD ULTRASOUND * (ABNORMAL) COMPREHENSIVE METABOLIC PANEL (12/31/2023 12:39 PM EST) BUN 25(H) 6 - 20 mg/dL 12/31/2023 1:14 PM EST LAB[facility]ATORY [facility] Creatinine 1.5(H) 0.5 - 1.0 mg/dL 12/31/2023 1:14 PM EST LAB[facility]ATORY [facility] Estimated Glomerular Filtration Rate 39(L) >=60 mL/min 12/31/2023 1:14 PM EST LAB[facility] Comment:eGFR is calculated b ased on the CKD-EPI 2020 equation Sodium 139 135 - 146 mmol/L 12/31/2023 1:14 PM EST LAB[facility]ATORY [facility] Potassium 4.1 3.5 - 5.1 mmol/L 12/31/2023 1:14 PM EST LAB[facility] Chloride 101 98 - 107 mmol/L 12/31/2023 1:14 PM EST LAB[facility] CO2 27 22 - 32 mmol/L 12/31/2023 1:14 PM EST LAB[facility] Anion Gap 11 7 - 15 mmol/L 12/31/2023 1:14 PM EST LAB[facility] Glucose 96 70 - 120 mg/dL 12/31/2023 1:14 PM EST LAB[facility] Albumin 3.3(L) 3.8 - 5.0 g/dL 12/31/2023 1:14 PM EST LAB[facility] AST 22 10 - 35 U/L 12/31/2023 1:14 PM EST LAB[facility] Alkaline Phosphatase 167(H) 35 - 130 U/L 12/31/2023 1:14 PM EST LAB[facility] Bilirubin, Total 0.3 <=1.2 mg/dL 12/31/2023 1:14 PM EST LAB[facility] Calcium 9.6 8.4 - 10.2 mg/dL 12/31/2023 1:14 PM EST [facility] Protein 6.7 6.0 - 8.3 g/dL 12/31/2023 1:14 PM EST LAB[facility] ALT 14 10 - 35 U/L 12/31/2023 1:14 PM EST LAB[facility] Blood Venous blood specimen / Unknown Venipuncture / Unknown 12/31/2023 12:39 PM EST 12/31/2023 12:44 PM EST Jose Palacios DO LAB BLOOD ORDER JAMSHID [facility] [address] [place] [address] * (ABNORMAL) CBC (12/31/2023 12:39 PM EST) WBC 12.60(H) 4.00 - 10.80 K/uL 12/31/2023 12:55 PM EST LAB[facility]AT[facility] RBC 2.83 3.85 - 5.15 M/uL 12/31/2023 12:55 PM EST LABORATORY GM HGB 8.5(L) 12.0 - 15.3 g/dL 12/31/2023 12:55 PM EST LAB[facility] HCT 27.3(L) 36.0 - 45.2 % 12/31/2023 12:55 PM EST LAB[facility] MCV 96.5 81.5 - 97.5 fL 12/31/2023 12:55 PM EST LAB[facility] MCH 30.0 27.0 - 34.0 pg 12/31/2023 12:55 PM EST LABORATORY [facility] MCHC 31.1 32.0 - 36.0 g/dL 12/31/2023 12:55 PM EST LABORATORY [facility] RDW 12.3 11.5 - 15.5 % 12/31/2023 12:55 PM EST LABORATORY [facility] PLT 592(H) 140 - 400 K/uL 12/31/2023 12:55 PM EST LABORATORY [facility] MPV 8.3 6.6 - 11.1 fL 12/31/2023 12:55 PM EST LABORATORY [facility] nRBCs 0 <=0 /100 WBCs 12/31/2023 12:55 PM EST LABORATORY GM Blood Venous blood specimen / Unknown Venipuncture / Unknown 12/31/2023 12:39 PM EST 12/31/2023 12:44 PM EST Jose Palacios DO LAB BLOOD ORDER JAMSHID LABORATORY [facility] [address] [place] [address] * GLUCOSE METER, POINT OF CARE (12/31/2023 12:04 PM EST) Glucose Meter 104 70 - 120 mg/dL 12/31/2023 12:11 PM EST [facility] Blood Whole blood specimen / Unknown 12/31/2023 12:04 PM EST 12/31/2023 12:10 PM EST Dionte Westbrook MD LAB POINT OF CARE TE ST DOCKED DEVICE UNSOLICITED RESULTS Performing Organization Address [facility]/ZIP Co de Phone Number [facility] [address] [place] [address] * MICROSLIDE CONSULTATION (12/30/2023 2:52 PM EST) Final Diagnosis A. Trachea, anterior polyps, biopsy ([facility]/ [id number]): Benign fragments of respiratory type mucosa and cartilage No dysplasia or carcinoma seen 01/09/2024 12:15 PM EST LABORATORY [facility] Microscopic Description A microscopic evaluation has been performed and findings support the above diagnosis. 01/09/2024 12:15 PM EST LABORATORY [facility] Clinical History Surgical pathology from [facility] 01/09/2024 12:15 PM EST LABORATORY [facility] Materials Received Trachea, anterior polyps, forceps biopsy/ [facility]/ [id number] (4 H&E's L1-L4)/ Collected 12/30/23 01/09/2024 12:15 PM EST LABORATORY [facility] Sign Out Location Pathologist sign out performed at [facility] ([facility]), [address] [place] [id number]. 01/09/2024 12:15 PM EST LABORATORY [facility] Tissue 12/30/2023 2:52 PM EST 01/05/2024 2:52 PM EST Jose Palacios DO LAB PATHOLOGY [place] [address] documented in this encounter Visit Diagnoses Diagnosis Mass of right lung- Primary Pleural effusion Unspecified pleural effusion Hemothorax on right Other specified forms of effusion, except tuberculous Chest pain Chest pain, unspecified Acute hypoxic respiratory failure (HCC) Acute hypoxic respiratory failure (HCC) Uncomplicated asthma Unspecified asthma Prediabetes Other abnormal glucose HTN, goal below 130/80 Unspecified essential hypertension Stage 3b chronic kidney disease (HCC) Dyslipidemia Other and unspecified hyperlipidemia Lymph node enlargement Enlargement of lymph nodes Hemothorax on right Other specified forms of effusion, except tuberculous Pleural effusion Unspecified pleural effusion documented in this encounter Administered Medications Inactive Administered Medications - up to 3 most recent administrations Medication Order MAR Action Action Date Dose Rate Site Acetaminophen (Tylenol) tab 975 mg 975 mg, Oral, Q6H PRN Pain, Moderate, Pain, Mild, Pain, Severe, Headache, Starting on Tue12/31/23 at 1517, Until Tue01/06/24 at 0853, Maximum of 4 grams (4000 mg) per day. Given 01/05/2024 2:05 AM EST 975 mg Given 01/04/2024 7:21 PM EST 975 mg Given 01/03/2024 4:09 PM EST 975 mg Acetaminophen (Tylenol) tab 975 mg 975 mg, Oral, Q8H, First dose on Tue01/05/24 at 1400, Until Discontinued, Maximum of 4 grams (4000 mg) per day. Given 01/13/2024 1:36 PM EST 975 mg Given 01/13/2024 6:08 AM EST 975 mg Given 01/12/2024 9:27 PM EST 975 mg Acetaminophen (Tylenol) tab 975 mg 975 mg, Oral, Q6H PRN Pain, Mild, Headache, Starting on Tue01/06/24 at 0853, Until Tue01/13/24 at 2213, Maximum of 4 grams (4000 mg) per day. buffered lidocaine 1 % inj Intradermal, ONCE PRN INTRA PROCEDURE, Starting on Tue01/12/24 at 1707, Until Tue01/12/24 at 1707, Intra-Op Given 01/12/2024 5:07 PM EST 4 mL Chest Left Enoxaparin (Lovenox) inj 40 mg 40 mg, Subcutaneous, Daily(AM), First dose on Tue01/10/24 at 1515, Until Discontinued, If patient is on warfarin, inform provider if daily INR value is 2 or greater! Given 01/10/2024 3:31 PM EST 40 mg Abdomen Left Lower fluticasone Furoate (ARNUITY ellipta) 100 MCG/ACT inhaler 1 Puff 1 Puff, Inhalation, RESPQPM, First dose on Tue12/31/23 at 2200, Until Discontinued, The proper method of use, as well as anticipated side effects, of this inhaler are discussed and demonstrated to the patient. Patient demonstrates adequate delivery. NURSING TO FOLLOW PATIENT WITH MDI/DPI ADMINISTRATION WASTE INFO: Return waste medication to pharmacy in zip lock bag - SP container. Given 01/12/2024 9:27 PM EST 1 Puff Given 01/11/2024 8:01 PM EST 1 Puff Given 01/10/2024 8:47 PM EST 1 Puff hEParin inj 5,000 Units 5,000 Units, Subcutaneous, Q8H, First dose on Tue01/10/24 at 2200, Until Discontinued Given 01/13/2024 1:36 PM EST 5,000 Units Abdomen Left Lower Given 01/13/2024 6:08 AM EST 5,000 Units A bdomen Right Upper Given 01/12/2024 9:26 PM EST 5,000 Units A bdomen Left Upper HYDROmorphone (Dilaudid) inj 0.2 mg 0.2 mg, IV Push, ONCE, On Tue01/12/24 at 2215, For 1 dose Given 01/12/2024 10:08 PM EST 0.2 mg Ioversol (Optiray 350) 74 % inj 100 mL 100 mL, Intravenous, ONCE, On Tue01/11/24 at 0930, For 1 dose, Radiology Medication Routing (Non-IR) Given 01/11/2024 9:30 AM EST 100 mL Iron Sucrose (Venofer) 200 mg in NSS 100 mL ivpb 200 mg, IV Piggyback, ONCE, 1 dose, On Tue01/01/24 at 1430, Administer over 60 Minutes New Bag 01/01/2024 3:01 PM EST 200 mg 110 mL/hr Iron Sucrose (Venofer) 200 mg in NSS 100 mL ivpb 200 mg, IV Piggyback, Daily(AM), 4 doses, First dose on Tue01/05/24 at 1100, Last dose on Tue01/08/24 at 0900, Administer over 60 Minutes New Bag 01/08/2024 8:57 AM EST 200 mg 110 mL/hr New Bag 01/07/2024 9:28 AM EST 200 mg 110 mL/hr New Bag 01/06/2024 10:20 AM EST 200 mg 110 mL/hr Iron Sucrose (Venofer) 200 mg in NSS 100 mL ivpb 200 mg, IV Piggyback, ONCE, 1 dose, On Tue01/13/24 at 1030, Administer over 60 Minutes New Bag 01/13/2024 11:26 AM EST 200 mg 110 mL/hr isolyte-S pH 7.4 infusion Intravenous, at 75 mL/hr, Plasma-LYTE 148, isolyte-S, and isolyte-S pH 7.4 are considered equivalent - including for MAR barcode scanning., CONTINUOUS, Starting on Tue01/04/24 at 0000, Until Tue01/04/24 at 2359 Restarted 01/04/2024 12:28 PM EST Continue from Pre-Op 01/04/2024 10:52 AM EST 75 mL/hr Rate Verify 01/04/2024 6:29 AM EST 75 mL/hr midazolam (Versed) 2 MG/2ML inj ONCE PRN INTRA PROCEDURE, Starting on Shikha 01/12/24 at 1620, Until Shikha 01/12/24 at 1620, Intra-Op Given 01/12/2024 4:20 PM EST 1 mg oxygen GAS Inhalation, OXYGEN, First dose on 12/31/23 at 1600, Until Discontinued, Device/Managed by: Low Flow Device, Goal SPO2 (%): 91-95, Starting Device: Nasal Cannula, Initial Flow Rate (LPM): 2, Lowest Support: Nasal Cannula: Flow 0-6 LPM. Titrate up/down by 1 LPM., Titration Interval: Q2 minutes and as needed., Notify Provider: For sudden DECREASE in resting SPO2 to less than 85% and when escalating delivery device., Wean patient off Oxygen when the oxygen saturation is greater than or equal to 93% Oxygen On 01/01/2024 8:00 AM EST Oxygen On 01/01/2024 12:00 AM EST 3 L/min(Oxygen) Oxygen On 12/31/2023 4:00 PM EST Polyethylene Glycol 3350 (Miralax) oral powder 17 g 17 g (1 Packet), Oral, Daily(AM), First dose on 12/31/23 at 1530, Until Discontinued, Mix in 8 oz of water, juice, soda, coffee, or tea. Given 01/08/2024 8:49 AM EST 17 g Given 01/07/2024 9:24 AM EST 17 g Given 01/06/2024 10:12 AM EST 17 g Polyethylene Glycol 3350 (Miralax) oral powder 17 g 17 g (1 Packet), Oral, BID (0900,2100), First dose (after last modification) on 01/08/24 at 2100, Until Discontinued, Mix in 8 oz of water, juice, soda, coffee, or tea. Given 01/10/2024 9:09 AM EST 17 g Given 01/08/2024 10:31 PM EST 17 g rosuvastatin (Crestor) tab 40 mg 40 mg, Oral, Daily(AM), First dose on Tue01/01/24 at 0900, Until Discontinued Given 01/13/2024 9:14 AM EST 40 mg Given 01/12/2024 10:12 AM EST 40 mg Given 01/11/2024 8:31 AM EST 40 mg senna (Senokot) 1 Tablet 1 Tablet, Oral, BID (.AM/PM), First dose on Leota 01/08/24 at 2100, Until Discontinued Given 01/10/2024 9:09 AM EST 1 Ta blet Given 01/08/2024 10:31 PM EST 1 Tablet sodium chloride 0.9 % flush/inj 3 mL 3 mL, IV Push, PRN Other, Line Patency, Starting on 12/31/23 at 1216, Until Tue01/13/24 at 2213, Do not flush if lock, PICC, or central line not in place, IV infusing or unable to flush traMADol (Ultram) tab 25 mg 25 mg, Oral, Q6H PRN Pain, Moderate, Starting on Shikha 01/05/24 at 0756, Until Tue01/13/24 at 2213 Given 01/08/2024 3:50 AM EST 25 mg Given 01/07/2024 8:28 PM EST 25 mg Given 01/05/2024 8:19 AM EST 25 mg traMADol (Ultram) tab 50 mg 50 mg, Oral, Q6H PRN Pain, Severe, Starting on Shikha 01/05/24 at 0756, Until Tue01/13/24 at 2213 Given 01/13/2024 9:1 4 AM EST 50 mg Given 01/13/2024 2:08 AM EST 50 mg Given 01/12/2024 8:49 PM EST 50 mg documented in this encounter Active and Recently Administered Medications Times are shown in EST. Scheduled Medication Order 01/11/2024 01/12/2024 01/13/2024 Acetaminophen (Tylenol) tab 975 mg 975 mg, Oral, Q8H, First dose on Shikha 01/05/24 at 1400, Until Discontinued, Maximum of 4 grams (4000 mg) per day. 06 (Given - Provider: Brady Grady RN)134 (Given - Provider: Clara Darling RN)1999 (Given - Provider: Deana Romero RN) 524 (Given - Provider: Colleen German, KHUSHBOO)135 (Given - Provider: Roberta Campos RN)2126 (Given - Provider: Charlotte Naylor RN) 06 (Given - Provider: Charlotte Naylor RN)133 (Given - Provider: Jessenia Oshea RN) fluticasone Furoate (ARNUITY ellipta) 100 MCG/ACT inhaler 1 Puff 1 Puff, Inhalation, RESPQPM, First dose on Tue12/31/23 at 2200, Until Discontinued, The proper method of use, as well as anticipated side effects, of this inhaler are discussed and demonstrated to the patient. Patient demonstrates adequate delivery. NURSING TO FOLLOW PATIENT WITH MDI/DPI ADMINISTRATION WASTE INFO: Return waste medication to pharmacy in zip lock bag - SP container. 2000 (Given - Provider: Deana Romero RN) 2126 (Given - Provider: Charlotte Naylor RN) hEParin inj 5,000 Units 5,000 Units, Subcutaneous, Q8H, First dose on Tue01/10/24 at 2200, Until Discontinued 0600 (Not Given - Provider: Brady Grady RN - Reason: Other- Please add reason in Comments - Comment: Patient refused)134 (Not Given - Provider: Clara Darling RN - Reason: Refused-Notify Provider)1999 (Given - Provider: Deana Romero RN) 524 (Given - Provider: Colleen German RN)1400 (Not Given - Provider: Roberta Campos RN - Reason: Refused-Notify Provider)2125 (Given - Provider: Charlotte Naylor RN) 0608 (Given - Provider: Charlotte Naylor RN)1336 (Given - Provider: Jessenia Oshea RN) HYDROmorphone (Dilaudid) inj 0.2 mg (COMPLETED) 0.2 mg, IV Push, ONCE, On Shikha 01/12/24 at 2215, For 1 dose 2208 (Given - Provider: Charlotte Naylor RN) Ioversol (Optiray 350) 74 % inj 100 mL (COMPLETED) 100 mL, Intravenous, ONCE, On Tue01/11/24 at 0930, For 1 dose, Radiology Medication Routing (Non-IR) 0930 (Given - Provider: Joel Ko, RT) Iron Sucrose (Venofer) 200 mg in NSS 100 mL ivpb (COMPLETED) 200 mg, IV Piggyback, ONCE, 1 dose, On Tue01/13/24 at 1030, Administer over 60 Minutes 1126 (New Bag - Provider: Jessenia Oshea RN) Polyethylene Glycol 3350 (Miralax) oral powder 17 g 17 g (1 Packet), Oral, BID (0900,2100), First dose (after last modification) on 01/08/24 at 2100, Until Discontinued, Mix in 8 oz of water, juice, soda, coffee, or tea. 0831 (Not Given - Provider: Ginny Bazzi LPN - Reason: Refused-Notify Provider)2100 (Not Given - Provider: Deana Romero RN - Reason: Refused-Notify Provider) 0900 (Not Given - Provider: Roberta Campos RN - Reason: Refused-Notify Provider - Comment: Dr. Romaine Tejada made aware)2124 (Not Given - Provider: Charlotte Naylor RN - Reason: Parameter(s) Not Met) 0900 (Not Given - Provider: Jessenia Oshea RN - Reason: Refused-Notify Provider)09 (Not Given - Provider: Jessenia Oshea RN - Reason: Refused-Notify Provider) rosuvastatin (Crestor) tab 40 mg 40 mg, Oral, Daily(AM), First dose on 01/01/24 at 0900, Until Discontinued 08 (Given - Provider: Ginny Bazzi LPN) 1012 (Given - Provider: Roberta Campos RN) 0914 (Given - Provider: Jessenia Oshea RN) senna (Senokot) 1 Tablet 1 Tablet, Oral, BID (.AM/PM), First dose on Tue01/08/24 at 2100, Until Discontinued 0831 (Not Given - Provider: Ginny Bazzi LPN - Reason: Refused-Notify Provider)2100 (Not Given - Provider: Deana Romero RN - Reason: Refused-Notify Provider) 0900 (Not Given - Provider: Roberta Campos RN - Reason: Refused-Notify Provider - Comment: Dr. Romaine Tejada made aware)2125 (Not Given - Provider: Charlotte Naylor RN - Reason: Parameter(s) Not Met) 09 (Not Given - Provider: Jessenia Oshea RN - Reason: Refused-Notify Provider)0911 (Not Given - Provider: Jessenia Oshea RN - Reason: Refused-Notify Provider) Continuous Medication Order 01/11/2024 01/12/2024 01/13/2024 isolyte-S pH 7.4 infusion Intravenous, at 75 mL/hr, Plasma-LYTE 148, isolyte-S, and isolyte-S pH 7.4 are considered equivalent - including for MAR barcode scanning., CONTINUOUS, Starting on Tue01/04/24 at 0000, Until Tue01/04/24 at 2359 PRN Medication Order 01/11/2024 01/12/2024 01/13/2024 Acetaminophen (Tylenol) tab 975 mg 975 mg, Oral, Q6H PRN Pain, Mild, Headache, Starting on Tue01/06/24 at 0853, Until Tue01/13/24 at 2213, Maximum of 4 grams (4000 mg) per day. albuterol (VENTOLIN HFA/PROVENTIL HFA) inhaler 2 Puff, Inhalation, Q6H PRN Dyspnea, Starting on Tue12/31/23 at 1450, Until Tue01/13/24 at 2213, Shake can for 10 seconds before each puff SEND INHALER WITH PATIENT! WASTE INFO ( IF NOT SENT HOME WITH PATIENT) : Return unused medication to pharmacy in zip lock bag for disposal into black container labeled SP. buffered lidocaine 1 % inj (COMPLETED) Intradermal, ONCE PRN INTRA PROCEDURE, Starting on Shikha 01/12/24 at 1707, Until Shikha 01/12/24 at 1707, Intra-Op 1707 (Given - Provider: Malu Gupta MD) midazolam (Versed) 2 MG/2ML inj (COMPLETED) ONCE PRN INTRA PROCEDURE, Starting on Shikha 01/12/24 at 1620, Until Discontinued, Intra-Op 1620 (Given - Provider: Antonina Linder RN) sodium chloride 0.9 % flush/inj 3 mL 3 mL, IV Push, PRN Other, Line Patency, Starting on 12/31/23 at 1216, Until Tue01/13/24 at 2213, Do not flush if lock, PICC, or central line not in place, IV infusing or unable to flush traMADol (Ultram) tab 25 mg(Linked Group 1) 25 mg, Oral, Q6H PRN Pain, Moderate, Starting on Shikha 01/05/24 at 0756, Until Tue01/13/24 at 2213 2000 (See Alternative - Provider: Deana Romero RN) 148 (See Alternative - Provider: Colleen German RN)2048 (See Alternative - Provider: Charlotte Naylor RN) 207 (See Alternative - Provider: Charlotte Naylor RN)0914 (See Alternative - Provider: Jessenia Oshea, KHUSHBOO) traMADol (Ultram) tab 50 mg(Linked Group 1) 50 mg, Oral, Q6H PRN Pain, Severe, Starting on Shikha 01/05/24 at 0756, Until Tue01/13/24 at 2213 2000 (Given - Provider: Deana Romero RN) 148 (Given - Provider: Colleen German RN)2048 (Given - Provider: Charlotte Naylor RN) 020 (Given - Provider: Charlotte Naylor RN)0914 (Given - Provider: Jessenia Oshea, KHUSHBOO) Linked Groups Order Group 1: traMADol (Ultram) tab 25 mgJump to med 25 mg, Oral, Q6H PRN Pain, Moderate, Starting on Shikha 01/05/24 at 0756, Until Tue01/13/24 at 2213 Or traMADol (Ultram) tab 50 mgJump to med 50 mg, Oral, Q6H PRN Pain, Severe, Starting on Shikha 01/05/24 at 0756, Until 01/13/24 at 2213 documented in this encounter Additional Health Concerns Infection Onset Date Last Indicated Resolved Time Respiratory Rule-Out 01/11/2024 01/11/2024 024 5:21 AM EST COVID-19 Rule-Out 01/11/2024 01/11/2024 01/11/2024 5:21 AM EST documented as of this encounter Advance Directives Latest Code Status on File Code Status Date Activated Date Inactivated Comments Full Code 12/31/2023 12:19 PM 01/13/2024 10:18 PM This order reflects the patients wishes and were consensually agreed upon. Question Answer Comments Discussion of Advance Directives occurred with: Patient Care Teams Detention Attendant Relationship Specialty Start Date End Date Ailin Zelaya MD [address] [place] [address] [place] [address] PCP - General Family Medicine 10/14/23 documented as of this encounter
--- OUTSIDE RECORDS SUMMARY | 2024-01-15 04:17 | External Medical Summary ---
Author Name Unknown Address Unknown Organization [id number]:LABORATORY [facility] [place] - [address] [facility] [address] Laboratory Report Ordering Provider Test Date Status BROOKLYNN MEYER 01/11/2024 04:18:42 Final ADMITTED patient Observation Date Value Abnormality Reference (Units ) Status Adenovirus DNA [Presence] in Nasopharynx by LUIS FERNANDO with non-probe detection 01/11/2024 04:18:42 Negative Negative Final Human coronavirus 229E RNA [Presence] in Nasopharynx by LUIS FERNANDO with non-probe detection 01/11/2024 04:18:42 Negative Negative Final Human coronavirus HKU1 RNA [Presence] in Nasopharynx by LUIS FERNANDO with non-probe detection 01/11/2024 04:18:42 Negative Negative Final Human coronavirus NL63 RNA [Presence] in Nasopharynx by LUIS FERNANDO with non-probe detection 01/11/2024 04:18:42 Negative Negative Final Human coronavirus OC43 RNA [Presence] in Nasopharynx by LUIS FERNANDO with non-probe detection 01/11/2024 04:18:42 Negative Negative Final SARS-CoV-2 (COVID-19) RNA [Presence] in Nasopharynx by LUIS FERNANDO with non-probe detection 01/11/2024 04:18:42 Negative Negative Final Human metapneumovirus RNA [Presence] in Nasopharynx by LUIS FERNANDO with non-probe detection 01/11/2024 04:18:42 Negative Negative Final Rhinovirus+Enterovirus RNA [Presence] in Nasopharynx by LUIS FERNANDO with non-probe detection 01/11/2024 04:18:42 Negative Negative Final Influenza virus A RNA [Presence] in Nasopharynx by LUIS FERNANDO with non-probe detection 01/11/2024 04:18:42 Negative Negative Final Influenza virus B RNA [Presence] in Nasopharynx by LUIS FERNANDO with non-probe detection 01/11/2024 04:18:42 Negative Negative Final Parainfluenza virus 1 RNA [Presence] in Nasopharynx by LUIS FERNANDO with non-probe detection 01/11/2024 04:18:42 Negative Negative Final Parainfluenza virus 2 RNA [Presence] in Nasopharynx by LUIS FERNANDO with non-probe detection 01/11/2024 04:18:42 Negative Negative Final Parainfluenza virus 3 RNA [Presence] in Nasopharynx by LUIS FERNANDO with non-probe detection 01/11/2024 04:18:42 Negative Negative Final Parainfluenza virus 4 RNA [Presence] in Nasopharynx by LUIS FERNANDO with non-probe detection 01/11/2024 04:18:42 Negative Negative Final Respiratory syncytial virus RNA [Presence] in Nasopharynx by LUIS FERNANDO with non-probe detection 01/11/2024 04:18:42 Negative Negative Final Bordetella pertussis.pertussis toxin promoter region [Presence] in Nasopharynx by LUIS FERNANDO with non-probe detection 01/11/2024 04:18:42 Negative Negative Final Chlamydophila pneumoniae DNA [Presence] in Nasopharynx by LUIS FERNANDO with non-probe detection 01/11/2024 04:18:42 Negative Negative Final Mycoplasma pneumoniae DNA [Presence] in Nasopharynx by LUIS FERNANDO with non-probe detection 01/11/2024 04:18:42 Negative Negative Final Bordetella parapertussis [id number] DNA [Presence] in Nasopharynx by LUIS FERNANDO with non-probe detection 01/11/2024 04:18:42 Negative Negative Final
The primers that detect Rhinovirus may cross react with some Enterorviruses. The validation of bronchial specimens, tracheal aspirates, and throats for this assay was developed and performance characteristics determined by [employer]. The validation of alternate specimen types has not been cleared or approved by the U.S. Food and Drug Administration (FDA). It has been determined that such clearance or approval is not necessary. [facility] Location LABORATORY [facility] [place] [facility] [place]. [facility] [address]
--- OUTSIDE RECORDS SUMMARY | 2024-01-15 04:17 | External Medical Summary ---
Author Name Unknown Address Unknown Organization [id number]:LABORATORY [facility] [place] [facility] [address] [facility] [address] Laboratory Report Ordering Provider Test Date Status GURPREET BRENNER 01/12/2024 07:06:00 Final Observation Date Value Abnormality Reference (Units ) Status WBC, Total 01/12/2024 07:06:00 12.14 Above high normal 4.00-10.80 (K/uL) Final RBC 01/12/2024 07:06:00 2.47 3.85-5.15 (M/uL) Final Hemoglobin 01/12/2024 07:06:00 7.6 Below low normal 12.0-15.3 (g/dL) Final HCT 01/12/2024 07:06:00 25.2 Below low normal 36.0-45.2 (%) Final MCV 01/12/2024 07:06:00 102.0 81.5-97.5 (fL) Final MCH 01/12/2024 07:06:00 30.8 27.0-34.0 (pg) Final MCHC 01/12/2024 07:06:00 30.2 32.0-36.0 (g/dL) Final RDW 01/12/2024 07:06:00 14.0 11.5-15.5 (%) Final Platelets 01/12/2024 07:06:00 569 Above high normal 140-400 (K/uL) Final MPV 01/12/2024 07:06:00 8.3 6.6-11.1 (fL) Final Nucleated erythrocytes/100 leukocytes [Ratio] in Blood by Automated count 01/12/2024 07:06:00 0 <=0 (/100 WBCs) Final Performing Location LABORATORY C - [address] [place] [address]
--- OUTSIDE RECORDS SUMMARY | 2024-01-15 04:17 | External Medical Summary ---
Author Name Unknown Address Unknown Organization [id number]:LABORATORY [facility] [place] - [address] [facility] [place] [address] Laboratory Report Ordering Provider Test Date Status GURPREET BRENNER 01/13/2024 07:04:00 Final Observation Date Value Abnormality Reference (Units ) Status BUN 01/13/2024 07:04:00 22 Above high normal 6-20 (mg/dL) Final Creatinine 01/13/2024 07:04:00 1.2 Above high normal 0.5-1.0 (mg/dL) Final Glomerular filtration rate/1.73 sq M.predicted [Volume Rate/Area] in Serum, Plasma or Blood by Creatinine-based formula (CKD-EPI) 01/13/2024 07:04:00 48 Below low normal >=60 (mL/min) Final eGFR is calculated based on the CKD-EPI 2020 equation SODIUM 01/13/2024 07:04:00 140 135-146 (m mol/L) Final Potassium 01/13/2024 07:04:00 4.9 3.5-5.1 (m mol/L) Final Cl 01/13/2024 07:04:00 104 98-107 (mm ol/L) Final CO2 01/13/2024 07:04:00 24 22-32 (mmo l/L) Final Anion gap 01/13/2024 07:04:00 12 7-15 (mmol /L) Final Glucose 01/13/2024 07:04:00 92 70-120 (mg /dL) Final Calcium 01/13/2024 07:04:00 8.6 8.4-10.2 ( mg/dL) Final Performing Location LABORATORY [facility] [place] - [address] [facility] [place] [address]
--- OUTSIDE RECORDS SUMMARY | 2024-01-15 04:17 | External Medical Summary ---
Author Name Unknown Address Unknown Organization K01:LABORATORY [facility] - [address] [facility] [address] Laboratory Report Ordering Provider Test Date Status GURPREET BRENNER 01/13/2024 07:04:00 Final Observation Date Value Abnormality Reference (Units ) Status Magnesium 01/13/2024 07:04:00 2.0 1.5-2.6 (m g/dL) Final Performing Location LABORATORY [facility] - [address] [facility] [address]
--- OUTSIDE RECORDS SUMMARY | 2024-01-15 04:17 | External Medical Summary ---
Author Name Unknown Address Unknown Organization [id number]:LABORATORY [facility] [place] - [address] [facility] [place] [address] Laboratory Report Ordering Provider Test Date Status GURPREET BRENNER 01/06/2024 06:00:00 Final Observation Date Value Abnormality Reference (Units ) Status BUN 01/06/2024 06:00:00 25 Above high normal 6-20 (mg/dL) Final Creatinine 01/06/2024 06:00:00 1.4 Above high normal 0.5-1.0 (mg/dL) Final Glomerular filtration rate/1.73 sq M.predicted [Volume Rate/Area] in Serum, Plasma or Blood by Creatinine-based formula (CKD-EPI) 01/06/2024 06:00:00 43 Below low normal >=60 (mL/min) Final eGFR is calculated based on the CKD-EPI 2020 equation SODIUM 01/06/2024 06:00:00 140 135-146 (m mol/L) Final Potassium 01/06/2024 06:00:00 4.5 3.5-5.1 (m mol/L) Final Cl 01/06/2024 06:00:00 104 98-107 (mm ol/L) Final CO2 01/06/2024 06:00:00 24 22-32 (mmo l/L) Final Anion gap 01/06/2024 06:00:00 12 7-15 (mmol /L) Final Glucose 01/06/2024 06:00:00 105 70-120 (mg /dL) Final Calcium 01/06/2024 06:00:00 8.2 Below low normal 8.4 -10.2 (mg/dL) Final Performing Location LABORATORY [facility] [place] - [address] [place] [address]
--- OUTSIDE RECORDS SUMMARY | 2024-01-15 04:17 | External Medical Summary ---
Author Name Unknown Address Unknown Organization [id number]:LABORATORY [facility] [place] - [address] [facility] [place] [address] Laboratory Report Ordering Provider Test Date Status GURPREET BRENNER 01/05/2024 08:22:00 Final Observation Date Value Abnormality Reference (Units ) Status BUN 01/05/2024 08:22:00 28 Above high normal 6-20 (mg/dL) Final Creatinine 01/05/2024 08:22:00 1.5 Above high normal 0.5-1.0 (mg/dL) Final Glomerular filtration rate/1.73 sq M.predicted [Volume Rate/Area] in Serum, Plasma or Blood by Creatinine-based formula (CKD-EPI) 01/05/2024 08:22:00 40 Below low normal >=60 (mL/min) Final eGFR is calculated based on the CKD-EPI 2020 equation SODIUM 01/05/2024 08:22:00 137 135-146 (m mol/L) Final Potassium 01/05/2024 08:22:00 4.9 3.5-5.1 (m mol/L) Final Cl 01/05/2024 08:22:00 102 98-107 (mm ol/L) Final CO2 01/05/2024 08:22:00 21 Below low normal 22- 32 (mmol/L) Final Anion gap 01/05/2024 08:22:00 14 7-15 (mmol /L) Final Glucose 01/05/2024 08:22:00 104 70-120 (mg /dL) Final Calcium 01/05/2024 08:22:00 8.7 8.4-10.2 ( mg/dL) Final Performing Location LABORATORY [facility] [place] - [address] [place] [address]
--- OUTSIDE RECORDS SUMMARY | 2024-01-15 04:17 | External Medical Summary ---
Author Name Unknown Address Unknown Organization K01:LABORATORY [facility] - [address] [facility] [address] Laboratory Report Ordering Provider Test Date Status GURPREET BRENNER 01/11/2024 10:53:00 Final Observation Date Value Abnormality Reference (Units ) Status Magnesium 01/11/2024 10:53:00 2.1 1.5-2.6 (m g/dL) Final Performing Location LABORATORY [facility] - [address] [facility] [address]
--- OUTSIDE RECORDS SUMMARY | 2024-01-15 04:17 | External Medical Summary ---
Author Name Unknown Address Unknown Organization K01:[place] [facility] [place] [address] [facility] [address] Laboratory Report Ordering Provider Test Date Status GURPREET BRENNER 01/06/2024 06:00:00 Final Observation Date Value Abnormality Reference (Units ) Status WBC, Total 01/06/2024 06:00:00 15.09 Above high normal 4.00-10.80 (K/uL) Final RBC 01/06/2024 06:00:00 2.47 3.85-5.15 (M/uL) Final Hemoglobin 01/06/2024 06:00:00 7.6 Below low normal 12.0-15.3 (g/dL) Final HCT 01/06/2024 06:00:00 24.3 Below low normal 36.0-45.2 (%) Final MCV 01/06/2024 06:00:00 98.4 81.5-97.5 (fL) Final MCH 01/06/2024 06:00:00 30.8 27.0-34.0 (pg) Final MCHC 01/06/2024 06:00:00 31.3 32.0-36.0 (g/dL) Final RDW 01/06/2024 06:00:00 13.2 11.5-15.5 (%) Final Platelets 01/06/2024 06:00:00 524 Above high normal 140-400 (K/uL) Final MPV 01/06/2024 06:00:00 8.5 6.6-11.1 (fL) Final Nucleated erythrocytes/100 leukocytes [Ratio] in Blood by Automated count 01/06/2024 06:00:00 0 <=0 (/100 WBCs) Final Performing Location LABORATORY C - [address] [place] [address]
--- OUTSIDE RECORDS SUMMARY | 2024-01-15 04:17 | External Medical Summary ---
Author Name Unknown Address Unknown Organization K01:LABORATORY [facility] [place] - [address] [facility] [address] Laboratory Report Ordering Provider Test Date Status GURPREET BRENNER 01/10/2024 06:27:00 Final Observation Date Value Abnormality Reference (Units ) Status BUN 01/10/2024 06:27:00 15 6-20 (mg/dL) Final Creatinine 01/10/2024 06:27:00 1.0 0.5-1.0 (mg/dL) Final Glomerular filtration rate/1.73 sq M.predicted [Volume Rate/Area] in Serum, Plasma or Blood by Creatinine-based formula (CKD-EPI) 01/10/2024 06:27:00 61 >=60 (mL/min) Final eGFR is calculated based on the CKD-EPI 2020 equation SODIUM 01/10/2024 06:27:00 140 135-146 (m mol/L) Final Potassium 01/10/2024 06:27:00 4.6 3.5-5.1 (m mol/L) Final Cl 01/10/2024 06:27:00 105 98-107 (mm ol/L) Final CO2 01/10/2024 06:27:00 25 22-32 (mmo l/L) Final Anion gap 01/10/2024 06:27:00 10 7-15 (mmol /L) Final Glucose 01/10/2024 06:27:00 112 70-120 (mg /dL) Final Calcium 01/10/2024 06:27:00 8.5 8.4-10.2 ( mg/dL) Final Performing Location LABORATORY [facility] [place] - [address] [facility] [address]
--- OUTSIDE RECORDS SUMMARY | 2024-01-15 04:17 | External Medical Summary ---
Author Name Unknown Address Unknown Organization K01:LABORATORY [facility] - [address] [facility] [address] Laboratory Report Ordering Provider Test Date Status GURPREET BRENNER 01/07/2024 07:10:00 Final Observation Date Value Abnormality Reference (Units ) Status Phosphate 01/07/2024 07:10:00 2.8 2.5-4.8 (m g/dL) Final Performing Location LABORATORY [facility] - [address] [facility] [address]
--- OUTSIDE RECORDS SUMMARY | 2024-01-15 04:17 | External Medical Summary ---
Author Name Unknown Address Unknown Organization K01:LABORATORY [facility] - [address] [facility] [address] Laboratory Report Ordering Provider Test Date Status GURPREET BRENNER 01/12/2024 07:06:00 Final Observation Date Value Abnormality Reference (Units ) Status Magnesium 01/12/2024 07:06:00 2.1 1.5-2.6 (m g/dL) Final Performing Location LABORATORY [facility] - [address] [facility] [address]
--- OUTSIDE RECORDS SUMMARY | 2024-01-15 04:17 | External Medical Summary ---
Author Name Unknown Address Unknown Organization [id number]:[facility] - [address] [facility] [address] Laboratory Report Ordering Provider Test Date Status GURPREET BRENNER 01/12/2024 07:06:00 Final Observation Date Value Abnormality Reference (Units ) Status Phosphate 01/12/2024 07:06:00 4.7 2.5-4.8 (m g/dL) Final Performing Location [facility] - [address] [facility] [address]
--- OUTSIDE RECORDS SUMMARY | 2024-01-15 04:17 | External Medical Summary ---
Author Name Unknown Address Unknown Organization [id number]:[facility] - [address] [facility] [address] Laboratory Report Ordering Provider Test Date Status GURPREET BRENNER 01/07/2024 07:10:00 Final Observation Date Value Abnormality Reference (Units ) Status Magnesium 01/07/2024 07:10:00 2.0 1.5-2.6 (m g/dL) Final Performing Location [facility] - [address] [facility] [address]
--- OUTSIDE RECORDS SUMMARY | 2024-01-15 04:17 | External Medical Summary ---
Author Name Unknown Address Unknown Organization [id number]:[facility] - [address] [facility] [address] Laboratory Report Ordering Provider Test Date Status GURPREET BRENNER 01/09/2024 07:56:00 Final Observation Date Value Abnormality Reference (Units ) Status Magnesium 01/09/2024 07:56:00 2.0 1.5-2.6 (m g/dL) Final Performing Location [facility] - [address] [facility] [address]
--- OUTSIDE RECORDS SUMMARY | 2024-01-15 04:17 | External Medical Summary ---
Author Name Unknown Address Unknown Organization [id number]:[facility] - [address] [facility] [address] Laboratory Report Ordering Provider Test Date Status GURPREET BRENNER 01/06/2024 06:00:00 Final Observation Date Value Abnormality Reference (Units ) Status Phosphate 01/06/2024 06:00:00 3.2 2.5-4.8 (m g/dL) Final Performing Location [facility] - [address] [facility] [address]
--- OUTSIDE RECORDS SUMMARY | 2024-01-15 04:17 | External Medical Summary | Summary of Care ---
Author Name Unknown Organization [facility] Address [address] [place] [address] Phone [phone] Care Team Providers Care Fish Agent Name Role Phone Riya Zelaya MD Primary Care Provider [phone] Encounter Details Date Type Department Care Team (Latest Contact Info) Description 12/28/2023 - 12/28/2023 11:44 AM EST Hospital Encounter Radiology Film File [address] [place] [address] Discharge Disposition: Home - Self [...] Date/Time Associated Diagnosis Comments RADIOLOGY EXAM - US (IMAGES ONLY, NO REPORT) Routine 12/28/2023 12:00 AM EST documented in this encounter Results * RADIOLOGY EXAM - US (IMAGES ONLY, NO REPORT) (12/28/2023 12:00 AM EST) 12/27/2023 11:4 5 PM EST Narrative Scheduling, Silent - 01/04/2024 11:45 AM EST This is an imaging study not interpreted or resulted by a [facility] or [employer] contracted radiologist. Jose Palacios DO RAD ULTRASOUND documented in this encounter Advance Directives Latest Code Status on File Code Status Date Activated Date Inactivated Comments Full Code 12/31/2023 12:19 PM This orde r reflects the patients wishes and were consensually agreed upon. Question Answer Comments Discussion of Advance Directives occurred with: Patient Care Teams Fish Agent Relationship Specialty Start Date End Date Riya Zelaya MD [address] [place] [address] [place] [address] PCP - General Family Medicine 10/14/23 documented as of this encounter
--- OUTSIDE RECORDS SUMMARY | 2024-01-15 04:17 | External Medical Summary ---
Author Name Unknown Address Unknown Organization [id number]:[facility]ORATORY [facility] [place] - [address] [facility] [address] Laboratory Report Ordering Provider Test Date Status GURPREET BRENNER 01/09/2024 07:56:00 Final Observation Date Value Abnormality Reference (Units ) Status WBC, Total 01/09/2024 07:56:00 15.67 Above high normal 4.00-10.80 (K/uL) Final RBC 01/09/2024 07:56:00 2.51 3.85-5.15 (M/uL) Final Hemoglobin 01/09/2024 07:56:00 7.7 Below low normal 12.0-15.3 (g/dL) Final HCT 01/09/2024 07:56:00 24.6 Below low normal 36.0-45.2 (%) Final MCV 01/09/2024 07:56:00 98.0 81.5-97.5 (fL) Final MCH 01/09/2024 07:56:00 30.7 27.0-34.0 (pg) Final MCHC 01/09/2024 07:56:00 31.3 32.0-36.0 (g/dL) Final RDW 01/09/2024 07:56:00 13.2 11.5-15.5 (%) Final Platelets 01/09/2024 07:56:00 583 Above high normal 140-400 (K/uL) Final MPV 01/09/2024 07:56:00 8.4 6.6-11.1 (fL) Final Nucleated erythrocytes/100 leukocytes [Ratio] in Blood by Automated count 01/09/2024 07:56:00 0 <=0 (/100 WBCs) Final Performing Location [facility] - [address] [facility] [address]
--- OUTSIDE RECORDS SUMMARY | 2024-01-15 04:17 | External Medical Summary ---
Author Name Unknown Address Unknown Organization [id number]:[facility] - [address] [facility] [address] Laboratory Report Ordering Provider Test Date Status GURPREET BRENNER 01/08/2024 06:37:00 Final Observation Date Value Abnormality Reference (Units ) Status Magnesium 01/08/2024 06:37:00 2.0 1.5-2.6 (m g/dL) Final Performing Location [facility] - [address] [facility] [address]
--- OUTSIDE RECORDS SUMMARY | 2024-01-15 04:17 | External Medical Summary ---
Author Name Unknown Address Unknown Organization [id number]:[facility] [place] [address] [facility] [address] Laboratory Report Ordering Provider Test Date Status GURPREET BRENNER 01/07/2024 07:10:00 Final Observation Date Value Abnormality Reference (Units ) Status BUN 01/07/2024 07:10:00 19 6-20 (mg/dL) Final Creatinine 01/07/2024 07:10:00 1.2 Above high normal 0.5-1.0 (mg/dL) Final Glomerular filtration rate/1.73 sq M.predicted [Volume Rate/Area] in Serum, Plasma or Blood by Creatinine-based formula (CKD-EPI) 01/07/2024 07:10:00 51 Below low normal >=60 (mL/min) Final eGFR is calculated based on the CKD-EPI 2020 equation SODIUM 01/07/2024 07:10:00 138 135-146 (m mol/L) Final Potassium 01/07/2024 07:10:00 4.5 3.5-5.1 (m mol/L) Final Cl 01/07/2024 07:10:00 102 98-107 (mm ol/L) Final CO2 01/07/2024 07:10:00 25 22-32 (mmo l/L) Final Anion gap 01/07/2024 07:10:00 11 7-15 (mmol /L) Final Glucose 01/07/2024 07:10:00 104 70-120 (mg /dL) Final Calcium 01/07/2024 07:10:00 8.7 8.4-10.2 ( mg/dL) Final Performing Location [facility] [place] [address] [facility] [id number]
--- OUTSIDE RECORDS SUMMARY | 2024-01-15 04:17 | External Medical Summary ---
Author Name Unknown Address Unknown Organization [id number]:[facility] - [address] [facility] [address] Laboratory Report Ordering Provider Test Date Status GURPREET BRENNER 01/06/2024 06:00:00 Final Observation Date Value Abnormality Reference (Units ) Status Magnesium 01/06/2024 06:00:00 2.1 1.5-2.6 (m g/dL) Final Performing Location [facility] - [address] [facility] [address]
--- OUTSIDE RECORDS SUMMARY | 2024-01-15 04:17 | External Medical Summary ---
Author Name Unknown Address Unknown Organization [id number]:[facility] - [address] [facility] [address] Laboratory Report Ordering Provider Test Date Status GURPREET BRENNER 01/10/2024 06:27:00 Final Observation Date Value Abnormality Reference (Units ) Status Magnesium 01/10/2024 06:27:00 2.1 1.5-2.6 (m g/dL) Final Performing Location [facility] - [address] [facility] [address]
--- OUTSIDE RECORDS SUMMARY | 2024-01-15 04:17 | External Medical Summary | Summary of Care ---
Author Name Unknown Organization [facility] Address [address] [place] [address] Phone [phone] Care Team Providers Care Overlock Elastic Attacher Name Role Phone Riya Zelaya MD Primary Care Provider [phone] Encounter Details Date Type Department Care Team (Latest Contact Info) Description 12/30/2023 12:45 PM EST - 12/30/2023 11:59 PM EST Hospital Encounter Radiology Film File [address] [place] [address] Discharge Disposition: Home - Self Care Allergies Active Allergy Reactions Criticality Noted Date Comments Penicillins 01/04/2024 Sulfa Antibiotics 01/04/2024 documented as of this encounter (statuses as of 01/05/2024) Medications Medication Sig Dispensed Refills Start Date End Date Status Fluticasone Propionate HFA 44 MCG/ACT Inhalation Aerosol (Flovent HFA) Inhale 2 Puffs by mouth in the morning and 2 Puffs before bedtime. 0 Suspended metFORMIN HCl 500 MG Oral Tablet (Glucophage) Take 1 Tablet by mouth daily with breakfast. 0 Suspended Lisinopril-hydroCHLO ROthiazide 10-12.5 MG Oral Tablet Take 1 Tablet by mouth in the morning. 0 Suspended Rosuvastatin Calcium 40 MG Oral Tablet (Crestor) Take 1 Tablet by mouth in the morning. 0 Suspended Fenofibrate Micronized 43 MG Oral Capsule Take 43 mg by mouth in the morning. 0 Suspended Albuterol Sulfate HFA 108 (90 Base) MCG/ACT Inhalation Aerosol Solution Inhale 2 Puffs by mouth every 6 hours as needed for Dyspnea or Wheezing. 0 Suspended documented as of this encounter (statuses as [...] - GENERAL RAD (IMAGES ONLY,NO REPORT) Routine 12/30/2023 12:45 PM EST documented in this encounter Results * RADIOLOGY EXAM - GENERAL RAD (IMAGES ONLY,NO REPORT) (12/30/2023 12:45 PM EST) 12/30/2023 12:3 8 PM EST Narrative Scheduling, Silent - 01/04/2024 11:49 AM EST This is an imaging study not interpreted or resulted by a [facility] or [employer] contracted radiologist. Jose Palacios DO RADIOLOGY (RAD GENERAL) documented in this encounter Advance Directives Latest Code Status on File Code Status Date Activated Date Inactivated Comments Full Code 12/31/2023 12:19 PM This orde r reflects the patients wishes and were consensually agreed upon. Question Answer Comments Discussion of Advance Directives occurred with: Patient Care Teams Overlock Elastic Attacher Relationship Specialty Start Date End Date Riya Zelaya MD [address] [place] [address] [place] [address] PCP - General Family Medicine 10/14/23 documented as of this encounter
--- OUTSIDE RECORDS SUMMARY | 2024-01-15 04:17 | External Medical Summary ---
Author Name Unknown Address Unknown Organization [id number]:[facility] - [address] [facility] [address] Laboratory Report Ordering Provider Test Date Status GURPREET BRENNER 01/11/2024 10:53:00 Final Observation Date Value Abnormality Reference (Units ) Status Phosphate 01/11/2024 10:53:00 3.7 2.5-4.8 (m g/dL) Final Performing Location [facility] - [address] [facility] [address]
--- OUTSIDE RECORDS SUMMARY | 2024-01-15 04:17 | External Medical Summary ---
Author Name Unknown Address Unknown Organization [id number]:LABORATORY [facility] [place] - [address] [facility] [place] [address] Laboratory Report Ordering Provider Test Date Status GURPREET BRENNER 01/12/2024 07:06:00 Final Observation Date Value Abnormality Reference (Units ) Status BUN 01/12/2024 07:06:00 18 6-20 (mg/dL) Final Creatinine 01/12/2024 07:06:00 1.2 Above high normal 0.5-1.0 (mg/dL) Final Glomerular filtration rate/1.73 sq M.predicted [Volume Rate/Area] in Serum, Plasma or Blood by Creatinine-based formula (CKD-EPI) 01/12/2024 07:06:00 49 Below low normal >=60 (mL/min) Final eGFR is calculated based on the CKD-EPI 2020 equation SODIUM 01/12/2024 07:06:00 139 135-146 (m mol/L) Final Potassium 01/12/2024 07:06:00 4.5 3.5-5.1 (m mol/L) Final Cl 01/12/2024 07:06:00 103 98-107 (mm ol/L) Final CO2 01/12/2024 07:06:00 27 22-32 (mmo l/L) Final Anion gap 01/12/2024 07:06:00 9 7-15 (mmol /L) Final Glucose 01/12/2024 07:06:00 106 70-120 (mg /dL) Final Calcium 01/12/2024 07:06:00 8.7 8.4-10.2 ( mg/dL) Final Performing Location LABORATORY [facility] [facility] - [address] [facility] [address]
--- OUTSIDE RECORDS SUMMARY | 2024-01-15 04:17 | External Medical Summary ---
Author Name Unknown Address Unknown Organization [id number]:[facility] [place] [address] [facility] [address] Laboratory Report Ordering Provider Test Date Status GURPREET BRENNER 01/11/2024 10:53:00 Final Observation Date Value Abnormality Reference (Units ) Status BUN 01/11/2024 10:53:00 15 6-20 (mg/dL) Final Creatinine 01/11/2024 10:53:00 1.0 0.5-1.0 (mg/dL) Final Glomerular filtration rate/1.73 sq M.predicted [Volume Rate/Area] in Serum, Plasma or Blood by Creatinine-based formula (CKD-EPI) 01/11/2024 10:53:00 62 >=60 (mL/min) Final eGFR is calculated based on the CKD-EPI 2020 equation SODIUM 01/11/2024 10:53:00 136 135-146 (m mol/L) Final Potassium 01/11/2024 10:53:00 4.5 3.5-5.1 (m mol/L) Final Cl 01/11/2024 10:53:00 102 98-107 (mm ol/L) Final CO2 01/11/2024 10:53:00 22 22-32 (mmo l/L) Final Anion gap 01/11/2024 10:53:00 12 7-15 (mmol /L) Final Glucose 01/11/2024 10:53:00 100 70-120 (mg /dL) Final Calcium 01/11/2024 10:53:00 9.0 8.4-10.2 ( mg/dL) Final Performing Location [facility] [place] [address] [facility] [address]
--- OUTSIDE RECORDS SUMMARY | 2024-01-15 04:17 | External Medical Summary ---
Author Name Unknown Address Unknown Organization K01:[facility]ATORY [facility] [place] - [facility] [address] Laboratory Report Ordering Provider Test Date Status GURPREET BRENNER 01/08/2024 06:37:00 Final Observation Date Value Abnormality Reference (Units ) Status BUN 01/08/2024 06:37:00 18 6-20 (mg/dL) Final Creatinine 01/08/2024 06:37:00 1.2 Above high normal 0.5-1.0 (mg/dL) Final Glomerular filtration rate/1.73 sq M.predicted [Volume Rate/Area] in Serum, Plasma or Blood by Creatinine-based formula (CKD-EPI) 01/08/2024 06:37:00 52 Below low normal >=60 (mL/min) Final eGFR is calculated based on the CKD-EPI 2020 equation SODIUM 01/08/2024 06:37:00 138 135-146 (m mol/L) Final Potassium 01/08/2024 06:37:00 4.6 3.5-5.1 (m mol/L) Final Cl 01/08/2024 06:37:00 102 98-107 (mm ol/L) Final CO2 01/08/2024 06:37:00 25 22-32 (mmo l/L) Final Anion gap 01/08/2024 06:37:00 11 7-15 (mmol /L) Final Glucose 01/08/2024 06:37:00 107 70-120 (mg /dL) Final Calcium 01/08/2024 06:37:00 8.7 8.4-10.2 ( mg/dL) Final Performing Location [facility]ORY [facility] [place] [facility] [address] [facility] [address]
--- OUTSIDE RECORDS SUMMARY | 2024-01-15 04:17 | External Medical Summary | Summary of Care ---
Author Name Unknown Organization [facility] Address [address] [place] [address] Phone [phone] Care Team Providers Care Industrial Controller Name Role Phone Riya Zelaya MD Primary Care Provider [phone] Encounter Details Date Type Department Care Team (Latest Contact Info) Description 12/27/2023 4:25 PM EST - 12/27/2023 5:59 PM EST Hospital Encounter Radiology Film File [address] [place] [address] Discharge Disposition: Home - Self [...] - GENERAL RAD (IMAGES ONLY,NO REPORT) Routine 12/27/2023 4:25 PM EST documented in this encounter Results * RADIOLOGY EXAM - GENERAL RAD (IMAGES ONLY,NO REPORT) (12/27/2023 4:25 PM EST) 12/27/2023 4:1 8 PM EST Narrative Scheduling, Silent - 01/04/2024 11:47 AM EST This is an imaging study not interpreted or resulted by a [facility] or [employer] contracted radiologist. Jose Palacios DO RADIOLOGY (RAD GENERAL) documented in this encounter Advance Directives Latest Code Status on File Code Status Date Activated Date Inactivated Comments Full Code 12/31/2023 12:19 PM This orde r reflects the patients wishes and were consensually agreed upon. Question Answer Comments Discussion of Advance Directives occurred with: Patient Care Teams Industrial Controller Relationship Specialty Start Date End Date Riya Zelaya MD [address] [place] [address] [place] [address] PCP - General Family Medicine 10/14/23 documented as of this encounter
--- OUTSIDE RECORDS SUMMARY | 2024-01-15 04:17 | External Medical Summary ---
Author Name Unknown Address Unknown Organization K01:LABORATORY [facility] [place] - [address] [facility] [address] Laboratory Report Ordering Provider Test Date Status GURPREET BRENNER 01/05/2024 08:22:00 Final Observation Date Value Abnormality Reference (Units ) Status WBC, Total 01/05/2024 08:22:00 18.13 Above high normal 4.00-10.80 (K/uL) Final RBC 01/05/2024 08:22:00 2.67 3.85-5.15 (M/uL) Final Hemoglobin 01/05/2024 08:22:00 8.3 Below low normal 12.0-15.3 (g/dL) Final HCT 01/05/2024 08:22:00 25.7 Below low normal 36.0-45.2 (%) Final MCV 01/05/2024 08:22:00 96.3 81.5-97.5 (fL) Final MCH 01/05/2024 08:22:00 31.1 27.0-34.0 (pg) Final MCHC 01/05/2024 08:22:00 32.3 32.0-36.0 (g/dL) Final RDW 01/05/2024 08:22:00 13.1 11.5-15.5 (%) Final Platelets 01/05/2024 08:22:00 486 Above high normal 140-400 (K/uL) Final MPV 01/05/2024 08:22:00 8.6 6.6-11.1 (fL) Final Nucleated erythrocytes/100 leukocytes [Ratio] in Blood by Automated count 01/05/2024 08:22:00 0 <=0 (/100 WBCs) Final Performing Location [facility] - [address] [facility] [address]
--- OUTSIDE RECORDS SUMMARY | 2024-01-15 04:17 | External Medical Summary ---
Author Name Unknown Address Unknown Organization K01:[facility] - [address] [facility] [address] Laboratory Report Ordering Provider Test Date Status GURPREET BRENNER 01/09/2024 07:56:00 Final Observation Date Value Abnormality Reference (Units ) Status Phosphate 01/09/2024 07:56:00 3.1 2.5-4.8 (m g/dL) Final Performing Location [facility] - [address] [facility] [address]
--- OUTSIDE RECORDS SUMMARY | 2024-01-15 04:18 | External Medical Summary ---
Author Name Unknown Address Unknown Organization K01:LABORATORY [facility] [place] - [address] [facility] [address] Laboratory Report Ordering Provider Test Date Status GURPREET BRENNER 01/02/2024 08:27:00 Final Observation Date Value Abnormality Reference (Units ) Status WBC, Total 01/02/2024 08:27:00 11.82 Above high normal 4.00-10.80 (K/uL) Final RBC 01/02/2024 08:27:00 3.01 3.85-5.15 (M/uL) Final Hemoglobin 01/02/2024 08:27:00 9.1 Below low normal 12.0-15.3 (g/dL) Final HCT 01/02/2024 08:27:00 29.2 Below low normal 36.0-45.2 (%) Final MCV 01/02/2024 08:27:00 97.0 81.5-97.5 (fL) Final MCH 01/02/2024 08:27:00 30.2 27.0-34.0 (pg) Final MCHC 01/02/2024 08:27:00 31.2 32.0-36.0 (g/dL) Final RDW 01/02/2024 08:27:00 12.4 11.5-15.5 (%) Final Platelets 01/02/2024 08:27:00 681 Above high normal 140-400 (K/uL) Final MPV 01/02/2024 08:27:00 8.1 6.6-11.1 (fL) Final Nucleated erythrocytes/100 leukocytes [Ratio] in Blood by Automated count 01/02/2024 08:27:00 0 <=0 (/100 WBCs) Final Performing Location LAB[facility]ORY [facility] - [address] [facility] [facility] [address]
--- OUTSIDE RECORDS SUMMARY | 2024-01-15 04:18 | External Medical Summary | Summary of Care ---
Author Name Unknown Organization [facility] Address [address] [place] [address] Phone [phone] Care Team Providers Care X Ray Technician Name Role Phone Riya Zelaya MD Primary Care Provider [phone] Encounter Details Date Type Department Care Team (Latest Contact Info) Description 12/27/2023 4:20 PM EST - 12/27/2023 5:59 PM EST Hospital Encounter Radiology Film File [address] [place] [address] Discharge Disposition: Home - Self Care Allergies No known active allergiesdocumented as of this encounter (statuses as of 01/01/2024) Medications No known medicationsdocumented as of this encounter (statuses as of 01/01/2024) Active Problems Problem Noted Date Diagnosed Date Mass of right lung 12/31/2023 Acute hypoxic respiratory failure 12/31/2023 Uncomplicated asthma 12/31/2023 Prediabetes 12/31/2023 HTN, goal below 130/80 12/31/2023 Stage 3b chronic kidney disease 12/31/2023 Dyslipidemia 12/31/2023 Lymph node enlargement 12/31/2023 documented as of this encounter (statuses as of 01/01/2024) Social History Tobacco Use Types Packs/Day Years [...] 2002 Sigmoidoscopy 2002 DXA Scan 2022 GFR 07/01/2024 01/01/2024, 12/31/2023 DTaP,Tdap,and Td Vaccines (2 - Td or [...] GENERAL RAD (IMAGES ONLY,NO REPORT) Routine 12/27/2023 4:20 PM EST documented in this encounter Results * RADIOLOGY EXAM - GENERAL RAD (IMAGES ONLY,NO REPORT) (12/27/2023 4:20 PM EST) 12/27/2023 4:18 PM EST Narrative Scheduling, Silent - 12/31/2023 2:07 PM EST This is an imaging study not interpreted or resulted by a [employer] or [employer] contracted radiologist. Jose Palacios DO RADIOLOGY (RAD GENERAL) documented in this encounter Advance Directives Latest Code Status on File Code Status Date Activated Date Inactivated Comments Full Code 12/31/2023 12:19 PM This orde r reflects the patients wishes and were consensually agreed upon. Question Answer Comments Discussion of Advance Directives occurred with: Patient Care Teams X Ray Technician Relationship Specialty Start Date End Date Riya Zleaya MD [address] [place] [address] [place] [address] PCP - General Family Medicine 10/14/23 documented as of this encounter
--- OUTSIDE RECORDS SUMMARY | 2024-01-15 04:18 | External Medical Summary | Summary of Care ---
Author Name Unknown Organization [facility] Address [address] [place] [address] Phone [phone] Care Team Providers Care Netting Weaver Name Role Phone Unavailable Primary Care Provider Unavailabl e Encounter Details Date Type Department Care Team (Late st Contact Info) Description 12/29/2023 Orders Only [facility] [address] [place], [place] [id number] Jose Palacios, [address], [place] [id number] Active Problems Problem Noted Date Diagnosed Date Mass of right lung 12/31/2023 Acute hypoxic respiratory failure 12/31/2023 Uncomplicated asthma 12/31/2023 Prediabetes 12/31/2023 HTN, goal below 130/80 12/31/2023 Stage 3b chronic kidney disease 12/31/2023 Dyslipidemia 12/31/2023 Lymph node enlargement 12/31/2023 documented as of this encounter (statuses as of 12/31/2023) Social History Tobacco Use Types Packs/Day Years Used Date Smoking Tobacco: Never Assessed Sex and Gender Information Value Date Recorded Sex Assigned at Not on file Gender Identity Not on file Sexual Orientation Not on file documented as of this encounter Plan of Treatment Health Maintenance Due Date Last Done Comments Lipid Panel 1957 HbA1c 1965 Depression Screening 1969 Albumin/Creatinine Ratio 1975 Hepatitis C Screening 1975 Mammogram 1997 Cologuard 2002 Colonoscopy 2002 Colorectal Cancer Screening 2002 Fecal Occult Blood Test 2002 Sigmoidoscopy 2002 DXA Scan 2022 GFR 06/30/2024 12/31/2023 DTaP,Tdap,and Td Vaccines (2 - Td [...] - US (IMAGES ONLY, NO REPORT) Routine 12/29/2023 1:45 PM EST documented in this encounter Results * RADIOLOGY EXAM - US (IMAGES ONLY, NO REPORT) (12/29/2023 1:45 PM EST) 12/29/2023 1:40 PM EST Narrative Scheduling, Silent - 12/31/2023 2:21 PM EST This is an imaging study not interpreted or resulted by a [facility] or [facility] contracted radiologist. Jose Palacios DO RAD ULTRASOUND documented in this encounter Advance Directives Latest Code Status on File Code Status Date Activated Date Inactivated Comments Full Code 12/31/2023 12:19 PM This orde r reflects the patients wishes and were consensually agreed upon. Question Answer Comments Discussion of Advance Directives occurred with: Patient
--- OUTSIDE RECORDS SUMMARY | 2024-01-15 04:18 | External Medical Summary ---
Author Name Unknown Address Unknown Organization K01:[facility] - [address] [facility] [address] Laboratory Report Ordering Provider Test Date Status GURPREET BRENNER 01/04/2024 07:42:00 Final Observation Date Value Abnormality Reference (Units ) Status Magnesium 01/04/2024 07:42:00 1.9 1.5-2.6 (m g/dL) Final Performing Location [facility] - [address] [facility] [address]
--- OUTSIDE RECORDS SUMMARY | 2024-01-15 04:18 | External Medical Summary ---
Author Name Unknown Address Unknown Organization K01:LABORATORY [facility] [place] - [address] [place] [address] Laboratory Report Ordering Provider Test Date Status GURPREET BRENNER 01/01/2024 07:32:00 Final Observation Date Value Abnormality Reference (Units ) Status Iron 01/01/2024 07:32:00 19 Below low normal 33-151 (ug/dL) Final Iron-binding capacity 01/01/2024 07:32:00 176 Below low normal 250-425 (ug/dL) Final Transferrin Sat % 01/01/2024 07:32:00 11 Below low normal 15-55 (%) Final Performing Location LABORATORY C - [address] [place] [address]
--- OUTSIDE RECORDS SUMMARY | 2024-01-15 04:18 | External Medical Summary ---
Author Name Unknown Address Unknown Organization [id number]:LAB[place]ATORY [facility] [place] [address] [place] [address] Laboratory Report Ordering Provider Test Date Status MARGARITO BRENNER 01/04/2024 13:38:52 Correction Anticoagulation may affect t esting. Refer to [employer] Test Catalog for a list of effects. Observation Date Value Abnormality Reference (Units ) Status aPTT panel - Platelet poor plasma 01/04/2024 13:38:52 Correction Improper fill of coag tube i nstrument errored

Changed result: Previously reported as <20 seconds on 01/04/2024 at 1429 EST. Performing Location LABORATORY [facility] [place] - [address] [place] [address]
--- OUTSIDE RECORDS SUMMARY | 2024-01-15 04:18 | External Medical Summary ---
Author Name Unknown Address Unknown Organization [id number]:LABORATORY [facility] [place] [facility] [address] [place] [address] Laboratory Report Ordering Provider Test Date Status ELAINE TOUSSAINT 01/04/2024 09:46:00 Final Observation Date Value Abnormality Reference (Units ) Status ABO 01/04/2024 09:46:00 O Final RH 01/04/2024 09:46:00 Positive Final RED BLOOD CELL ANTIBODY SCREEN 01/04/2024 09:46:00 Negative Final SPECIMEN EXPIRATION DATE 01/04/2024 09:46:00 01/07/2024 23:59 Final Performing Location LABORATORY [facility] [place] [facility] - [address] [place] [address]
--- OUTSIDE RECORDS SUMMARY | 2024-01-15 04:18 | External Medical Summary | Summary of Care ---
Author Name Unknown Organization [facility] Address [address] [place] [address] Phone [phone] Care Team Providers Care Elevating Grader Operator Name Role Phone Riya Zelaya MD Primary Care Provider [phone] Encounter Details Date Type Department Care Team (Late st Contact Info) Description 12/29/2023 Orders Only General Internal Medicine, [facility] [address] [place] [address] Jose Palacios, [address] [place] [address] Allergies Active Allergy Reactions Criticality Noted Date Comments Penicillins 01/04/2024 Sulfa Antibiotics 01/04/2024 documented as of this encounter (statuses as of 01/04/2024) Medications No known medicationsdocumented as of this encounter (statuses as of 01/04/2024) Active Problems Problem Noted Date Diagnosed Date Mass of right lung 12/31/2023 Acute hypoxic respiratory failure 12/31/2023 Uncomplicated asthma 12/31/2023 Prediabetes 12/31/2023 HTN, goal below 130/80 12/31/2023 Stage 3b chronic kidney disease 12/31/2023 Dyslipidemia 12/31/2023 Lymph node enlargement 12/31/2023 Hemothorax on right 12/30/2023 documented as of this encounter (statuses as of 01/04/2024) Social History Tobacco Use Types Packs/Day Years Used Date Smoking Tobacco: Never Assessed Sex and Gender Information Value Date Recorded Sex Assigned at Not on file Gender Identity Not on file Sexual Orientation Not on file Job Start Date Occupation Industry Not on file Not on file Not on file documented as of this encounter Plan of Treatment Scheduled Procedures Name Priority Associated Diagnoses Date/Ti me THORACOSCOPY SURGICAL TOTAL PULMONARY DECORTICATION Hemothorax on right 01/04/2024 9:50 AM EST Health Maintenance Due Date Last Done Comments Lipid Panel 1957 HbA1c 1965 Depression Screening 1969 Albumin/Creatinine Ratio 1975 Hepatitis C Screening 1975 Mammogram 1997 Cologuard 2002 Colonoscopy 2002 Colorectal Cancer Screening 2002 Fecal Occult Blood Test 2002 Sigmoidoscopy 2002 DXA Scan 2022 GFR 07/04/2024 01/04/2024, 12/16, 01/02/2024, Additional history exists DTaP,Tdap,and Td Vaccines (2 [...] ONLY,NO REPORT) (12/29/2023 2:55 PM EST) 12/29/2023 2:49 PM EST Narrative Scheduling, Silent - 01/04/2024 12:15 PM EST This is an imaging study not interpreted or resulted by a [facility] or [employer] contracted radiologist. Jose Palacios DO RADIOLOGY (RAD GENERAL) documented in this encounter Advance Directives Latest Code Status on File Code Status Date Activated Date Inactivated Comments Full Code 12/31/2023 12:19 PM This orde r reflects the patients wishes and were consensually agreed upon. Question Answer Comments Discussion of Advance Directives occurred with: Patient Care Teams Elevating Grader Operator Relationship Specialty Start Date End Date Riya Zelaya MD [address] [place] [address] [place] [address] PCP - General Family Medicine 10/14/23 documented as of this encounter
--- OUTSIDE RECORDS SUMMARY | 2024-01-15 04:18 | External Medical Summary | Summary of Care ---
Author Name Unknown Organization [facility] Address [address] [place] [address] Phone [phone] Care Team Providers Care Bander Hand Name Role Phone Riya Zelaya MD Primary Care Provider [phone] Encounter Details Date Type Department Care Team (Latest Contact Info) Description 12/29/2023 1:40 PM EST - 12/29/2023 1:44 PM EST Hospital Encounter Radiology Film File [address] [place] [address] Arrived Discharge Disposition: Home - Self Care Allergies [...] US (IMAGES ONLY, NO REPORT) Routine 12/29/2023 1:40 PM EST documented in this encounter Results * RADIOLOGY EXAM - US (IMAGES ONLY, NO REPORT) (12/29/2023 1:40 PM EST) 12/29/2023 1:40 PM EST Narrative Scheduling, Silent - 12/31/2023 2:11 PM EST This is an imaging study not interpreted or resulted by a [employer] or [employer] contracted radiologist. Jose Palacios DO RAD ULTRASOUND documented in this encounter Advance Directives Latest Code Status on File Code Status Date Activated Date Inactivated Comments Full Code 12/31/2023 12:19 PM This orde r reflects the patients wishes and were consensually agreed upon. Question Answer Comments Discussion of Advance Directives occurred with: Patient Care Teams Bander Hand Relationship Specialty Start Date End Date Riya Zelaya MD [address] [facility] [place] [address] PCP - General Family Medicine 10/14/23 documented as of this encounter
--- OUTSIDE RECORDS SUMMARY | 2024-01-15 04:18 | External Medical Summary | Summary of Care ---
Author Name Unknown Organization [facility] Address [address] [place] [address] Phone [phone] Care Team Providers Care Mirror Silverer Name Role Phone Riya Zelaya MD Primary Care Provider [phone] Encounter Details Date Type Department Care Team (Latest Contact Info) Description 12/27/2023 11:45 PM EST - 12/27/2023 11:59 PM EST Hospital Encounter Radiology Film File [address] [place] [address] Discharge Disposition: Home - Self [...] - US (IMAGES ONLY, NO REPORT) Routine 12/27/2023 11:45 PM EST documented in this encounter Results * RADIOLOGY EXAM - US (IMAGES ONLY, NO REPORT) (12/27/2023 11:45 PM EST) 12/27/2023 11:4 5 PM EST Narrative Scheduling, Silent - 12/31/2023 2:09 PM EST This is an imaging study not interpreted or resulted by a [employer] or [employer] contracted radiologist. Jose Palacios DO RAD ULTRASOUND documented in this encounter Advance Directives Latest Code Status on File Code Status Date Activated Date Inactivated Comments Full Code 12/31/2023 12:19 PM This orde r reflects the patients wishes and were consensually agreed upon. Question Answer Comments Discussion of Advance Directives occurred with: Patient Care Teams Mirror Silverer Relationship Specialty Start Date End Date Riya Zelaya MD [address] [facility] [place] [address] PCP - General Family Medicine 10/14/23 documented as of this encounter
--- OUTSIDE RECORDS SUMMARY | 2024-01-15 04:18 | External Medical Summary ---
Author Name Unknown Address Unknown Organization [id number]:LABORATORY [facility] [place] - [address] [facility] [address] Laboratory Report Ordering Provider Test Date Status ELOIAN ROBBINS 01/04/2024 22:45:00 Final Observation Date Value Abnormality Reference (Units ) Status WBC, Total 01/04/2024 22:45:00 18.91 Above high normal 4.00-10.80 (K/uL) Final RBC 01/04/2024 22:45:00 2.76 3.85-5.15 (M/uL) Final Hemoglobin 01/04/2024 22:45:00 8.5 Below low normal 12.0-15.3 (g/dL) Final HCT 01/04/2024 22:45:00 26.3 Below low normal 36.0-45.2 (%) Final MCV 01/04/2024 22:45:00 95.3 81.5-97.5 (fL) Final MCH 01/04/2024 22:45:00 30.8 27.0-34.0 (pg) Final MCHC 01/04/2024 22:45:00 32.3 32.0-36.0 (g/dL) Final RDW 01/04/2024 22:45:00 13.0 11.5-15.5 (%) Final Platelets 01/04/2024 22:45:00 488 Above high normal 140-400 (K/uL) Final MPV 01/04/2024 22:45:00 8.5 6.6-11.1 (fL) Final Nucleated erythrocytes/100 leukocytes [Ratio] in Blood by Automated count 01/04/2024 22:45:00 0 <=0 (/100 WBCs) Final Performing Location [facility] [address] [facility] [address]
--- OUTSIDE RECORDS SUMMARY | 2024-01-15 04:18 | External Medical Summary | Summary of Care ---
Author Name Unknown Organization [facility] Address [address] [place] [address] Phone [phone] Care Team Providers Care Justice Of The Peace Name Role Phone Riya Zelaya MD Primary Care Provider [phone] Encounter Details Date Type Department Care Team (Latest Contact Info) Description 12/30/2023 12:40 PM EST - 12/30/2023 11:59 PM EST Hospital Encounter Radiology Film File [address] [place] [address] Arrived Discharge Disposition: Home - Self Care Allergies No known active allergiesdocumented as of this encounter (statuses as of 01/01/2024) Medications Medication Sig Dispensed Refills Start Date [...] GENERAL RAD (IMAGES ONLY,NO REPORT) Routine 12/30/2023 12:40 PM EST documented in this encounter Results * RADIOLOGY EXAM - GENERAL RAD (IMAGES ONLY,NO REPORT) (12/30/2023 12:40 PM EST) 12/30/2023 12:3 8 PM EST Narrative Scheduling, Silent - 12/31/2023 2:15 PM EST This is an imaging study not interpreted or resulted by a [facility] or [employer] contracted radiologist. Jose Campbell Palacios DO RADIOLOGY (RAD GENERAL) documented in this encounter Advance Directives Latest Code Status on File Code Status Date Activated Date Inactivated Comments Full Code 12/31/2023 12:19 PM This orde r reflects the patients wishes and were consensually agreed upon. Question Answer Comments Discussion of Advance Directives occurred with: Patient Care Teams Justice Of The Peace Relationship Specialty Start Date End Date Riya Zelaya MD [address] [place] [address] [place] [address] PCP - General Family Medicine 10/14/23 documented as of this encounter
--- OUTSIDE RECORDS SUMMARY | 2024-01-15 04:18 | External Medical Summary | Summary of Care ---
Author Name Unknown Organization [facility] Address [address] [place] [address] Phone [phone] Care Team Providers Care Water Softener Service Supervisor Name Role Phone Unavailable Primary Care Provider Unavailabl e Encounter Details Date Type Department Care Team (Late st Contact Info) Description 12/28/2023 Orders Only [facility] [address] [place], [place] [id number] Jose Palacios, [address] [place] [address] Active Problems Problem Noted Date Diagnosed Date [...] Date/Time Associated Diagnosis Comments RADIOLOGY EXAM - MRI (IMAGES ONLY, NO REPORT) Routine 12/28/2023 12:05 PM EST documented in this encounter Results * RADIOLOGY EXAM - MRI (IMAGES ONLY, NO REPORT) (12/28/2023 12:05 PM EST) 12/28/2023 12:0 2 PM EST Narrative Scheduling, Silent - 12/31/2023 2:17 PM EST This is an imaging study not interpreted or resulted by a [facility] or [facility] radiologist. Jose Palacios DO RAD MRI-MRA documented in this encounter Advance Directives Latest Code Status on File Code Status Date Activated Date Inactivated Comments Full Code 12/31/2023 12:19 PM This orde r reflects the patients wishes and were consensually agreed upon. Question Answer Comments Discussion of Advance Directives occurred with: Patient
--- OUTSIDE RECORDS SUMMARY | 2024-01-15 04:18 | External Medical Summary ---
Author Name Unknown Address Unknown Organization K01:LABORATORY [facility] [place] [address] [facility] [place] [address] Laboratory Report Ordering Provider Test Date Status ELOINA ROBBINS 01/01/2024 07:32:00 Final Observation Date Value Abnormality Reference (Units ) Status BUN 01/01/2024 07:32:00 23 Above high normal 6-20 (mg/dL) Final Creatinine 01/01/2024 07:32:00 1.4 Above high normal 0.5-1.0 (mg/dL) Final Glomerular filtration rate/1.73 sq M.predicted [Volume Rate/Area] in Serum, Plasma or Blood by Creatinine-based formula (CKD-EPI) 01/01/2024 07:32:00 40 Below low normal >=60 (mL/min) Final eGFR is calculated based on the CKD-EPI 2020 equation SODIUM 01/01/2024 07:32:00 142 135-146 (m mol/L) Final Potassium 01/01/2024 07:32:00 4.2 3.5-5.1 (m mol/L) Final Cl 01/01/2024 07:32:00 103 98-107 (mm ol/L) Final CO2 01/01/2024 07:32:00 27 22-32 (mmo l/L) Final Anion gap 01/01/2024 07:32:00 12 7-15 (mmol /L) Final Glucose 01/01/2024 07:32:00 104 70-120 (mg /dL) Final Calcium 01/01/2024 07:32:00 9.1 8.4-10.2 ( mg/dL) Final Performing Location LABORATORY [facility] [place] [address] [place] [address]
--- OUTSIDE RECORDS SUMMARY | 2024-01-15 04:18 | External Medical Summary | Summary of Care ---
Author Name Unknown Organization [facility] Address [address] [place] [address] Phone [phone] Care Team Providers Care Data Warehouse Specialist Name Role Phone Unavailable Primary Care Provider Unavailabl e Encounter Details Date Type Department Care Team (Late st Contact Info) Description 12/27/2023 [facility] Only [facility] [address] [place], [place] [phone] Jose Palacios, [address] [place] [address] Active Problems Problem Noted Date Diagnosed Date [...] Date/Time Associated Diagnosis Comments RADIOLOGY EXAM - CT (IMAGES ONLY, NO REPORT) Routine 12/27/2023 6:00 PM EST documented in this encounter Results * RADIOLOGY EXAM - CT (IMAGES ONLY, NO REPORT) (12/27/2023 6:00 PM EST) 12/27/2023 6:00 PM EST Narrative Scheduling, Silent - 12/31/2023 2:19 PM EST This is an imaging study not interpreted or resulted by a [facility] or [facility] radiologist. Jose Palacios DO RAD CT documented in this encounter Advance Directives Latest Code Status on File Code Status Date Activated Date Inactivated Comments Full Code 12/31/2023 12:19 PM This orde r reflects the patients wishes and were consensually agreed upon. Question Answer Comments Discussion of Advance Directives occurred with: Patient
--- OUTSIDE RECORDS SUMMARY | 2024-01-15 04:18 | External Medical Summary ---
Author Name Unknown Address Unknown Organization K01:[facility]ORY [facility] [place] [address] [facility] [place] [address] Laboratory Report Ordering Provider Test Date Status ELAINE TOUSSAINT 01/04/2024 09:46:00 Final Observation Date Value Abnormality Reference (Units ) Status ABO 01/04/2024 09:46:00 O Final RH 01/04/2024 09:46:00 Positive Final Performing Location [facility] [place] [facility] [place] [address] [facility] [place] [address]
--- OUTSIDE RECORDS SUMMARY | 2024-01-15 04:18 | External Medical Summary ---
Author Name Unknown Address Unknown Organization K01:[place] [facility] [place] [address] [facility] [address] Laboratory Report Ordering Provider Test Date Status GURPREET BRENNER 01/03/2024 06:22:00 Final Observation Date Value Abnormality Reference (Units ) Status BUN 01/03/2024 06:22:00 20 6-20 (mg/dL) Final Creatinine 01/03/2024 06:22:00 1.2 Above high normal 0.5-1.0 (mg/dL) Final Glomerular filtration rate/1.73 sq M.predicted [Volume Rate/Area] in Serum, Plasma or Blood by Creatinine-based formula (CKD-EPI) 01/03/2024 06:22:00 48 Below low normal >=60 (mL/min) Final eGFR is calculated based on the CKD-EPI 2020 equation SODIUM 01/03/2024 06:22:00 139 135-146 (m mol/L) Final Potassium 01/03/2024 06:22:00 4.4 3.5-5.1 (m mol/L) Final Cl 01/03/2024 06:22:00 101 98-107 (mm ol/L) Final CO2 01/03/2024 06:22:00 25 22-32 (mmo l/L) Final Anion gap 01/03/2024 06:22:00 13 7-15 (mmol /L) Final Glucose 01/03/2024 06:22:00 109 70-120 (mg /dL) Final Calcium 01/03/2024 06:22:00 9.2 8.4-10.2 ( mg/dL) Final Performing Location [place] [facility] [place] [address] [facility] [address]
--- OUTSIDE RECORDS SUMMARY | 2024-01-15 04:18 | External Medical Summary | Summary of Care ---
Author Name Unknown Organization [facility] Address [address] [place] [address] Phone [phone] Care Team Providers Care Route Vending Machine Servicer Name Role Phone Riya Zelaya MD Primary Care Provider [phone] Encounter Details Date Type Department Care Team (Latest Contact Info) Description 12/29/2023 1:45 PM EST - 12/29/2023 2:49 PM EST Hospital Encounter Radiology Film File [address] [place] [address] Arrived Discharge Disposition: Home - [...] study not interpreted or resulted by a [employer] or [employer] contracted radiologist. Jose Palacios DO RAD ULTRASOUND documented in this encounter Advance Directives Latest Code Status on File Code Status Date Activated Date Inactivated Comments Full Code 12/31/2023 12:19 PM This orde r reflects the patients wishes and were consensually agreed upon. Question Answer Comments Discussion of Advance Directives occurred with: Patient Care Teams Route Vending Machine Servicer Relationship Specialty Start Date End Date Riya Zelaya MD [address] [facility] [place] [address] PCP - General Family Medicine 10/14/23 documented as of this encounter
--- OUTSIDE RECORDS SUMMARY | 2024-01-15 04:18 | External Medical Summary | Summary of Care ---
Author Name Unknown Organization [facility] Address [address] [place] [address] Phone [phone] Care Team Providers Care Baseball Inspector Name Role Phone Riya Zelaya MD Primary Care Provider [phone] Encounter Details Date Type Department Care Team (Late st Contact Info) Description 12/27/2023 Orders Only General Internal Medicine, [facility] [address] [place] [address] Jose Palacios, [address] [place] [address] Allergies Active Allergy Reactions Criticality [...] ONLY,NO REPORT) (12/27/2023 4:25 PM EST) 12/27/2023 4:18 PM EST Narrative Scheduling, Silent - 01/04/2024 11:47 AM EST This is an imaging study not interpreted or resulted by a [facility] or [employer] contracted radiologist. Jose Palacios DO RADIOLOGY (RAD GENERAL) documented in this encounter Advance Directives Latest Code Status on File Code Status Date Activated Date Inactivated Comments Full Code 12/31/2023 12:19 PM This orde r reflects the patients wishes and were consensually agreed upon. Question Answer Comments Discussion of Advance Directives occurred with: Patient Care Teams Baseball Inspector Relationship Specialty Start Date End Date Riya Zelaya MD [address] [place] [address] [place] [address] PCP - General Family Medicine 10/14/23 documented as of this encounter
--- OUTSIDE RECORDS SUMMARY | 2024-01-15 04:18 | External Medical Summary ---
Author Name Unknown Address Unknown Organization K01:LABORATORY [facility] - [address] [facility] [address] Laboratory Report Ordering Provider Test Date Status GURPREET BRENNER 01/03/2024 06:22:00 Final Observation Date Value Abnormality Reference (Units ) Status Phosphate 01/03/2024 06:22:00 3.1 2.5-4.8 (m g/dL) Final Performing Location LABORATORY [facility] - [address] [facility] [address]
--- OUTSIDE RECORDS SUMMARY | 2024-01-15 04:18 | External Medical Summary | Summary of Care ---
Author Name Unknown Organization [facility] Address [address] [place] [address] Phone [phone] Care Team Providers Care Board Catcher Name Role Phone Unavailable Primary Care Provider Unavailabl e Encounter Details Date Type Department Care Team (Late st Contact Info) Description 12/29/2023 Orders Only [facility], [facility] [address] [place], [place] [id number] Jose Palacios, [address] [place], [place] [address] Active Problems Problem Noted Date Diagnosed Date [...] GENERAL RAD (IMAGES ONLY,NO REPORT) Routine 12/29/2023 2:50 PM EST documented in this encounter Results * RADIOLOGY EXAM - GENERAL RAD (IMAGES ONLY,NO REPORT) (12/29/2023 2:50 PM EST) 12/29/2023 2:49 PM EST Narrative Scheduling, Silent - 12/31/2023 2:23 PM EST This is an imaging study not interpreted or resulted by a [facility] or [employer] contracted radiologist. Jose Palacios DO RADIOLOGY (RAD GENERAL) documented in this encounter Advance Directives Latest Code Status on File Code Status Date Activated Date Inactivated Comments Full Code 12/31/2023 12:19 PM This orde r reflects the patients wishes and were consensually agreed upon. Question Answer Comments Discussion of Advance Directives occurred with: Patient
--- OUTSIDE RECORDS SUMMARY | 2024-01-15 04:18 | External Medical Summary ---
Author Name Unknown Address Unknown Organization K01:[facility]ORY [facility] [place] [address] [facility] [place] [address] Laboratory Report Ordering Provider Test Date Status GURPREET BRENNER 01/04/2024 07:42:00 Final Observation Date Value Abnormality Reference (Units ) Status BUN 01/04/2024 07:42:00 21 Above high normal 6-20 (mg/dL) Final Creatinine 01/04/2024 07:42:00 1.3 Above high normal 0.5-1.0 (mg/dL) Final Glomerular filtration rate/1.73 sq M.predicted [Volume Rate/Area] in Serum, Plasma or Blood by Creatinine-based formula (CKD-EPI) 01/04/2024 07:42:00 48 Below low normal >=60 (mL/min) Final eGFR is calculated based on the CKD-EPI 2020 equation SODIUM 01/04/2024 07:42:00 137 135-146 (m mol/L) Final Potassium 01/04/2024 07:42:00 4.6 3.5-5.1 (m mol/L) Final Cl 01/04/2024 07:42:00 100 98-107 (mm ol/L) Final CO2 01/04/2024 07:42:00 25 22-32 (mmo l/L) Final Anion gap 01/04/2024 07:42:00 12 7-15 (mmol /L) Final Glucose 01/04/2024 07:42:00 101 70-120 (mg /dL) Final Calcium 01/04/2024 07:42:00 8.9 8.4-10.2 ( mg/dL) Final Performing Location LABORATORY [facility] [place] [address] [place] [address]
--- OUTSIDE RECORDS SUMMARY | 2024-01-15 04:18 | External Medical Summary | Summary of Care ---
Author Name Unknown Organization [facility] Address [address] [place] [address] Phone [phone] Care Team Providers Care Stave Grader Name Role Phone Riya Zelaya MD Primary Care Provider [phone] Encounter Details Date Type Department Care Team (Latest Contact Info) Description 12/29/2023 2:50 PM EST - 12/29/2023 11:59 PM EST Hospital Encounter Radiology Film File [address] [place] [address] Arrived Discharge Disposition: Home - [...] study not interpreted or resulted by a [employer] or [employer] contracted radiologist. Jose Plaacios DO RADIOLOGY (RAD GENERAL) documented in this encounter Advance Directives Latest Code Status on File Code Status Date Activated Date Inactivated Comments Full Code 12/31/2023 12:19 PM This orde r reflects the patients wishes and were consensually agreed upon. Question Answer Comments Discussion of Advance Directives occurred with: Patient Care Teams Stave Grader Relationship Specialty Start Date End Date Riya Zelaya MD [address] [place] [address] [place] [address] PCP - General Family Medicine 10/14/23 documented as of this encounter
--- OUTSIDE RECORDS SUMMARY | 2024-01-15 04:18 | External Medical Summary ---
Author Name Unknown Address Unknown Organization K01:LABORATORY [facility] [place] - [address] [facility] [address] Laboratory Report Ordering Provider Test Date Status GURPREET BRENNER 01/02/2024 08:27:00 Final Observation Date Value Abnormality Reference (Units ) Status BUN 01/02/2024 08:27:00 22 Above high normal 6-20 (mg/dL) Final Creatinine 01/02/2024 08:27:00 1.3 Above high normal 0.5-1.0 (mg/dL) Final Glomerular filtration rate/1.73 sq M.predicted [Volume Rate/Area] in Serum, Plasma or Blood by Creatinine-based formula (CKD-EPI) 01/02/2024 08:27:00 45 Below low normal >=60 (mL/min) Final eGFR is calculated based on the CKD-EPI 2020 equation SODIUM 01/02/2024 08:27:00 139 135-146 (m mol/L) Final Potassium 01/02/2024 08:27:00 4.1 3.5-5.1 (m mol/L) Final Cl 01/02/2024 08:27:00 102 98-107 (mm ol/L) Final CO2 01/02/2024 08:27:00 27 22-32 (mmo l/L) Final Anion gap 01/02/2024 08:27:00 10 7-15 (mmol /L) Final Glucose 01/02/2024 08:27:00 103 70-120 (mg /dL) Final Calcium 01/02/2024 08:27:00 9.1 8.4-10.2 ( mg/dL) Final Performing Location LABORATORY [facility] [place] - [address] [facility] [address]
--- OUTSIDE RECORDS SUMMARY | 2024-01-15 04:18 | External Medical Summary ---
Author Name Unknown Address Unknown Organization K01:[facility] - [address] [facility] [address] Laboratory Report Ordering Provider Test Date Status GURPREET BRENNER 01/02/2024 08:27:00 Final Observation Date Value Abnormality Reference (Units ) Status Phosphate 01/02/2024 08:27:00 3.0 2.5-4.8 (m g/dL) Final Performing Location [facility] - [address] [facility] [address]
--- OUTSIDE RECORDS SUMMARY | 2024-01-15 04:18 | External Medical Summary | Summary of Care ---
Author Name Unknown Organization [facility] Address [address] [place] [address] Phone [phone] Care Team Providers Care Servicer Travel Trailers Name Role Phone Riya Zelaya MD Primary Care Provider [phone] Encounter Details Date Type Department Care Team (Latest Contact Info) Description 12/27/2023 6:00 PM EST - 12/27/2023 11:44 PM EST Hospital Encounter Radiology Film File [address] [place] [address] Discharge Disposition: Home - Self [...] study not interpreted or resulted by a [facility] or [employer] contracted radiologist. Jose Palacios DO RAD CT documented in this encounter Advance Directives Latest Code Status on File Code Status Date Activated Date Inactivated Comments Full Code 12/31/2023 12:19 PM This orde r reflects the patients wishes and were consensually agreed upon. Question Answer Comments Discussion of Advance Directives occurred with: Patient Care Teams Servicer Travel Trailers Relationship Specialty Start Date End Date Riya Zelaya MD [address] [place] [address] [place] [address] PCP - General Family Medicine 10/14/23 documented as of this encounter
--- OUTSIDE RECORDS SUMMARY | 2024-01-15 04:18 | External Medical Summary | Summary of Care ---
Author Name Unknown Organization [facility] Address [address] [place] [address] Phone [phone] Care Team Providers Care Headline Writer Name Role Phone Riya Zelaya MD Primary Care Provider [phone] Encounter Details Date Type Department Care Team (Late st Contact Info) Description 12/30/2023 Orders Only General Internal Medicine, [facility] [address] [place] [address] Jose Palacios, [address] [place], [place] [phone] Allergies Active Allergy Reactions Criticality Noted Date Comments Penicillins 01/04/2024 Sulfa Antibiotics 01/04/2024 documented as of this encounter (statuses as of 01/04/2024) Medications Medication Sig Dispensed Refills Start Date [...] interpreted or resulted by a [facility] or [facility] [employer] contracted radiologist. Jose Palacios DO RADIOLOGY (RAD GENERAL) documented in this encounter Advance Directives Latest Code Status on File Code Status Date Activated Date Inactivated Comments Full Code 12/31/2023 12:19 PM This orde r reflects the patients wishes and were consensually agreed upon. Question Answer Comments Discussion of Advance Directives occurred with: Patient Care Teams Headline Writer Relationship Specialty Start Date End Date Riya Zelaya MD [address] [place] [address] [place] [address] PCP - General Family Medicine 10/14/23 documented as of this encounter
--- OUTSIDE RECORDS SUMMARY | 2024-01-15 04:18 | External Medical Summary ---
Author Name Unknown Address Unknown Organization K01:[facility]ORY [facility] - [address] [facility] [address] Laboratory Report Ordering Provider Test Date Status GURPREET RBENNER 01/03/2024 06:22:00 Final Observation Date Value Abnormality Reference (Units ) Status Magnesium 01/03/2024 06:22:00 2.0 1.5-2.6 (m g/dL) Final Performing Location [facility] - [address] [facility] [address]
--- OUTSIDE RECORDS SUMMARY | 2024-01-15 04:18 | External Medical Summary | Summary of Care ---
Author Name Unknown Organization [facility] Address [address] [place] [address] Phone [phone] Care Team Providers Care Cnc Router Operator Name Role Phone Riya Zelaya MD Primary Care Provider [phone] Encounter Details Date Type Department Care Team (Late st Contact Info) Description 12/27/2023 Orders Only General Internal Medicine, [facility] [address] [place] [address] Jose Palacios, [address] [place] [address] Allergies Active Allergy Reactions Criticality [...] study not interpreted or resulted by a [employer] or [employer] contracted radiologist. Josejuan Hightower Philip DO RAD ULTRASOUND documented in this encounter Advance Directives Latest Code Status on File Code Status Date Activated Date Inactivated Comments Full Code 12/31/2023 12:19 PM This orde r reflects the patients wishes and were consensually agreed upon. Question Answer Comments Discussion of Advance Directives occurred with: Patient Care Teams Cnc Router Operator Relationship Specialty Start Date End Date Riya Zelaya MD [address] [place] [address] [place] [address] PCP - General Family Medicine 10/14/23 documented as of this encounter
--- OUTSIDE RECORDS SUMMARY | 2024-01-15 04:18 | External Medical Summary ---
Author Name Unknown Address Unknown Organization K01:LAB[facility]ATORY [facility] [place] [address] [facility] [address] Laboratory Report Ordering Provider Test Date Status GURPREET BRENNER 01/03/2024 06:22:00 Final Observation Date Value Abnormality Reference (Units ) Status WBC, Total 01/03/2024 06:22:00 12.93 Above high normal 4.00-10.80 (K/uL) Final RBC 01/03/2024 06:22:00 2.91 3.85-5.15 (M/uL) Final Hemoglobin 01/03/2024 06:22:00 8.9 Below low normal 12.0-15.3 (g/dL) Final HCT 01/03/2024 06:22:00 28.4 Below low normal 36.0-45.2 (%) Final MCV 01/03/2024 06:22:00 97.6 81.5-97.5 (fL) Final MCH 01/03/2024 06:22:00 30.6 27.0-34.0 (pg) Final MCHC 01/03/2024 06:22:00 31.3 32.0-36.0 (g/dL) Final RDW 01/03/2024 06:22:00 12.6 11.5-15.5 (%) Final Platelets 01/03/2024 06:22:00 671 Above high normal 140-400 (K/uL) Final MPV 01/03/2024 06:22:00 8.3 6.6-11.1 (fL) Final Nucleated erythrocytes/100 leukocytes [Ratio] in Blood by Automated count 01/03/2024 06:22:00 0 <=0 (/100 WBCs) Final Performing Location LABORATORY C - [address] [place] [address]
--- OUTSIDE RECORDS SUMMARY | 2024-01-15 04:18 | External Medical Summary ---
Author Name Unknown Address Unknown Organization K01:[facility]ORY [facility] [place] [address] [facility] [address] Laboratory Report Ordering Provider Test Date Status COLLEEN CAMACHO 01/01/2024 07:32:00 Final Observation Date Value Abnormality Reference (Units ) Status Ferritin 01/01/2024 07:32:00 1088 Above high normal 13 -150 (ng/mL) Final Postmenopausal women have hi gher ferritin levels than pre-menopausal women. The above reference interval is based on pre-menopausal women. Performing Location [facility] [address] [facility] [address]
--- OUTSIDE RECORDS SUMMARY | 2024-01-15 04:18 | External Medical Summary ---
Author Name Unknown Address Unknown Organization K01:LABORATORY [facility] [place] - [address] [facility] [address] Laboratory Report Ordering Provider Test Date Status GURPREET BRENNER 01/04/2024 07:42:00 Final Observation Date Value Abnormality Reference (Units ) Status WBC, Total 01/04/2024 07:42:00 13.83 Above high normal 4.00-10.80 (K/uL) Final RBC 01/04/2024 07:42:00 2.84 3.85-5.15 (M/uL) Final Hemoglobin 01/04/2024 07:42:00 8.7 Below low normal 12.0-15.3 (g/dL) Final HCT 01/04/2024 07:42:00 27.4 Below low normal 36.0-45.2 (%) Final MCV 01/04/2024 07:42:00 96.5 81.5-97.5 (fL) Final MCH 01/04/2024 07:42:00 30.6 27.0-34.0 (pg) Final MCHC 01/04/2024 07:42:00 31.8 32.0-36.0 (g/dL) Final RDW 01/04/2024 07:42:00 12.5 11.5-15.5 (%) Final Platelets 01/04/2024 07:42:00 660 Above high normal 140-400 (K/uL) Final MPV 01/04/2024 07:42:00 8.3 6.6-11.1 (fL) Final Nucleated erythrocytes/100 leukocytes [Ratio] in Blood by Automated count 01/04/2024 07:42:00 0 <=0 (/100 WBCs) Final Performing Location LABORATORY C - [address] [facility] [address]
--- OUTSIDE RECORDS SUMMARY | 2024-01-15 04:18 | External Medical Summary | Summary of Care ---
Author Name Unknown Organization [facility] Address [address] [place] [address] Phone [phone] Care Team Providers Care Creel Selector Name Role Phone Riya Zelaya MD Primary Care Provider [phone] Encounter Details Date Type Department Care Team (Latest Contact Info) Description 12/28/2023 11:45 AM EST - 12/28/2023 12:04 PM EST Hospital Encounter Radiology Film File [address] [place] [address] Discharge Disposition: Home - Self [...] - CT (IMAGES ONLY, NO REPORT) Routine 12/28/2023 11:45 AM EST documented in this encounter Results * RADIOLOGY EXAM - CT (IMAGES ONLY, NO REPORT) (12/28/2023 11:45 AM EST) 12/28/2023 11:4 1 AM EST Narrative Scheduling, Silent - 12/31/2023 2:13 PM EST This is an imaging study not interpreted or resulted by a [employer] or [employer] contracted radiologist. Jose Palacios DO RAD CT documented in this encounter Advance Directives Latest Code Status on File Code Status Date Activated Date Inactivated Comments Full Code 12/31/2023 12:19 PM This orde r reflects the patients wishes and were consensually agreed upon. Question Answer Comments Discussion of Advance Directives occurred with: Patient Care Teams Creel Selector Relationship Specialty Start Date End Date Riya Zelaya MD [address] [facility] [place] [address] PCP - General Family Medicine 10/14/23 documented as of this encounter
--- OUTSIDE RECORDS SUMMARY | 2024-01-15 04:18 | External Medical Summary ---
Author Name Unknown Address Unknown Organization K01:[facility] - [address] [facility] [address] Laboratory Report Ordering Provider Test Date Status GURPREET BRENNER 01/02/2024 08:27:00 Final Observation Date Value Abnormality Reference (Units ) Status Magnesium 01/02/2024 08:27:00 2.0 1.5-2.6 (m g/dL) Final Performing Location [facility] - [address] [facility] [address]
--- OUTSIDE RECORDS SUMMARY | 2024-01-15 04:18 | External Medical Summary | Summary of Care ---
Author Name Unknown Organization [facility] Address [address] [place] [address] Phone [phone] Care Team Providers Care Senior Software Engineering Manager Name Role Phone Riya Zelaya MD Primary Care Provider [phone] Encounter Details Date Type Department Care Team (Latest Contact Info) Description 12/28/2023 12:05 PM EST - 12/28/2023 11:59 PM EST Hospital Encounter Radiology Film File [address] [place] [address] Discharge Disposition: Home - Self [...] study not interpreted or resulted by a [employer] or [employer] contracted radiologist. Jose Palacios DO RAD MRI-MRA documented in this encounter Advance Directives Latest Code Status on File Code Status Date Activated Date Inactivated Comments Full Code 12/31/2023 12:19 PM This orde r reflects the patients wishes and were consensually agreed upon. Question Answer Comments Discussion of Advance Directives occurred with: Patient Care Teams Senior Software Engineering Manager Relationship Specialty Start Date End Date Riya Zelaya MD [address] [place] [address] [place] [address] PCP - General Family Medicine 10/14/23 documented as of this encounter
--- OUTSIDE RECORDS SUMMARY | 2024-01-15 04:18 | External Medical Summary ---
Author Name Unknown Address Unknown Organization K01:[facility] [facility] [place] [address] [facility] [address] Laboratory Report Ordering Provider Test Date Status ELOINA ROBBINS 01/01/2024 07:32:00 Final Observation Date Value Abnormality Reference (Units ) Status WBC, Total 01/01/2024 07:32:00 10.40 4.00-10.80 (K/uL) Final RBC 01/01/2024 07:32:00 2.81 3.85-5.15 (M/uL) Final Hemoglobin 01/01/2024 07:32:00 8.5 Below low normal 12.0-15.3 (g/dL) Final HCT 01/01/2024 07:32:00 27.5 Below low normal 36.0-45.2 (%) Final MCV 01/01/2024 07:32:00 97.9 81.5-97.5 (fL) Final MCH 01/01/2024 07:32:00 30.2 27.0-34.0 (pg) Final MCHC 01/01/2024 07:32:00 30.9 32.0-36.0 (g/dL) Final RDW 01/01/2024 07:32:00 12.4 11.5-15.5 (%) Final Platelets 01/01/2024 07:32:00 648 Above high normal 140-400 (K/uL) Final MPV 01/01/2024 07:32:00 8.4 6.6-11.1 (fL) Final Nucleated erythrocytes/100 leukocytes [Ratio] in Blood by Automated count 01/01/2024 07:32:00 0 <=0 (/100 WBCs) Final Performing Location LAB[facility]ORY [facility] [address] [facility] [address]
--- OUTSIDE RECORDS SUMMARY | 2024-01-15 04:18 | External Medical Summary ---
Author Name Unknown Address Unknown Organization K01:LABORATORY [facility] [place] - [address] [facility] [address] Laboratory Report Ordering Provider Test Date Status MARGARITO BRENNER 01/04/2024 12:15:32 Final Observation Date Value Abnormality Reference (Units ) Status Body temperature 01/04/2024 12:15:32 37.0 (C) Final pH of Arterial blood 01/04/2024 12:15:32 7.417 7.350-7.450 (units) Final Carbon dioxide [Partial pressure] in Arterial blood 01/04/2024 12:15:32 41.9 35.0-45.0 (mmHg) Final Oxygen [Partial pressure] in Arterial blood 01/04/2024 12:15:32 163.0 Above high normal 75.0-100.0 (mmHg) Final Base excess, Arterial 01/04/2024 12:15:32 2.3 Above high normal -2.0-2.0 (mmol/L) Final Hemoglobin [Mass/volume] in Blood by Oximetry 01/04/2024 12:15:32 7.5 Below low normal 12.0-15.3 (g/dL) Final HCT, calc. 01/04/2024 12:15:32 23.4 Below low normal 36.0-45.2 (%) Final The Hematocrit reference int erval is based on adult population.
This method is intended for trending and screening purposes only.
A "Complete Blood Count" is more accurate and should be ordered if clinically indicated. Oxyhemoglobin, Arterial (FO2HB) 01/04/2024 12:15:32 96.8 94.0-99.0 (% total Hgb) Final Carboxyhemoglobin 01/04/2024 12:15:32 2.1 Above high normal <=1.5 (% total Hgb) Final Smokers: 0-9.0 % Methemoglobin 01/04/2024 12:15:32 0.3 <=1.5 (% total Hgb) Final Deoxyhemoglobin/Hemog lobin.total in Arterial blood 01/04/2024 12:15:32 0.8 0.0-5.0 (% total Hgb) Final Oxygen content in Arterial blood 01/04/2024 12:15:32 10.6 Below low normal 15.0-24.0 (%vol) Final Potassium, Whole Blood 01/04/2024 12:15:32 4.4 3.5-5.1 (mmol/L) Final Sodium, Whole Blood 01/04/2024 12:15:32 138 135-146 (mmol/L) Final Chloride, Whole Blood 01/04/2024 12:15:32 103 98-107 (mmol/L) Final Calcium.ionized [Moles/volume] in Blood by Ion-selective membrane electrode (ISE) 01/04/2024 12:15:32 1.07 Below low normal 1.13-1.32 (mmol/L) Final Anion gap, Whole Blood 01/04/2024 12:15:32 8.7 7.0-15.0 (mmol/L) Final Glucose, whole blood 01/04/2024 12:15:32 95 70-120 (mg/dL) Final Oxygen/Total gas setting [Volume Fraction] Ventilator 01/04/2024 12:15:32 Not Provided (%) Final O2 FLOW, ARTERIAL - [facility] 01/04/2024 12:15:32 Not Provided (L/min) Final Bicarbonate, Venous, POC (i-STAT) 01/04/2024 12:15:32 26.5 23.0-31.0 (mmol/L) Final Performing Location LABORATORY [facility] [place] - [address] [facility] [address]
--- OUTSIDE RECORDS SUMMARY | 2024-01-15 04:19 | External Medical Summary | Summary of Care ---
Author Name Unknown Organization [facility] Address [address] [place] [address] Phone [phone] Care Team Providers Care Offal Icer Poultry Name Role Phone Unavailable Primary Care Provider Unavailabl e Encounter Details Date Type Department Care Team (Late st Contact Info) Description 12/30/2023 Orders Only General [facility], [facility] [address] [place], [place] [phone] Jose Palacios, [address] [place] [address] Active Problems Problem Noted Date Diagnosed Date [...] interpreted or resulted by a [facility] or [employer] contracted radiologist. Jose Palacios DO RADIOLOGY (RAD GENERAL) documented in this encounter Advance Directives Latest Code Status on File Code Status Date Activated Date Inactivated Comments Full Code 12/31/2023 12:19 PM This orde r reflects the patients wishes and were consensually agreed upon. Question Answer Comments Discussion of Advance Directives occurred with: Patient
--- OUTSIDE RECORDS SUMMARY | 2024-01-15 04:19 | External Medical Summary | Summary of Care ---
Author Name Unknown Organization [facility] Address [address] [place] [address] Phone [phone] Care Team Providers Care Winderman Name Role Phone Unavailable Primary Care Provider Unavailabl e Encounter Details Date Type Department Care Team (Late st Contact Info) Description 12/28/2023 Orders Only General Internal Medicine, [facility] [address] [place], [place] [phone] Jose Palacios, [address] [place] [address] Active Problems Problem Noted Date Diagnosed Date [...] interpreted or resulted by a [facility] or [facility] contracted radiologist. Jose Palacios DO RAD CT documented in this encounter Advance Directives Latest Code Status on File Code Status Date Activated Date Inactivated Comments Full Code 12/31/2023 12:19 PM This orde r reflects the patients wishes and were consensually agreed upon. Question Answer Comments Discussion of Advance Directives occurred with: Patient
--- OUTSIDE RECORDS SUMMARY | 2024-01-15 04:19 | External Medical Summary ---
Author Name Unknown Address Unknown Organization K01:LABORATORY [facility] [place] - [address] [facility] [address] Laboratory Report Ordering Provider Test Date Status ELOINA ROBBINS 12/31/2023 12:39:00 Final Observation Date Value Abnormality Reference (Units ) Status BUN 12/31/2023 12:39:00 25 Above high normal 6-20 (mg/dL) Final Creatinine 12/31/2023 12:39:00 1.5 Above high normal 0.5-1.0 (mg/dL) Final Glomerular filtration rate/1.73 sq M.predicted [Volume Rate/Area] in Serum, Plasma or Blood by Creatinine-based formula (CKD-EPI) 12/31/2023 12:39:00 39 Below low normal >=60 (mL/min) Final eGFR is calculated based on the CKD-EPI 2020 equation SODIUM 12/31/2023 12:39:00 139 135-146 (m mol/L) Final Potassium 12/31/2023 12:39:00 4.1 3.5-5.1 (m mol/L) Final Cl 12/31/2023 12:39:00 101 98-107 (mm ol/L) Final CO2 12/31/2023 12:39:00 27 22-32 (mmo l/L) Final Anion gap 12/31/2023 12:39:00 11 7-15 (mmol /L) Final Glucose 12/31/2023 12:39:00 96 70-120 (mg /dL) Final Albumin 12/31/2023 12:39:00 3.3 Below low normal 3.8 -5.0 (g/dL) Final AST (Aspartate aminotransferase) 12/31/2023 12:39:00 22 10-35 (U/L) Fin al Alk Phos 12/31/2023 12:39:00 167 Above high normal 35 -130 (U/L) Final Bilirubin, Total 12/31/2023 12:39:00 0.3 <=1 .2 (mg/dL) Final Calcium 12/31/2023 12:39:00 9.6 8.4-10.2 ( mg/dL) Final Protein 12/31/2023 12:39:00 6.7 6.0-8.3 (g /dL) Final ALT (Alanine aminotransferase) 12/31/2023 12:39:00 14 10-35 (U/L) Adis bravo Performing Location LABORATORY [facility] [place] - [facility] [address] [facility] [address]
--- OUTSIDE RECORDS SUMMARY | 2024-01-15 04:19 | External Medical Summary | Summary of Care ---
Author Name Unknown Organization [facility] Address [address] [place] [address] Phone [phone] Care Team Providers Care Ratchet Setter Name Role Phone Unavailable Primary Care Provider Unavailabl e Encounter Details Date Type Department Care Team (Late st Contact Info) Description 12/27/2023 Orders Only General Internal Medicine, [facility] [address] [place] [address] Jose Palacios, [address] [place], [place] [phone] Active Problems Problem Noted Date Diagnosed Date [...] Date Last Done Comments Lipid Panel 1957 Depression Screening 1969 Hepatitis C Screening 1975 Mammogram 1997 Cologuard 2002 Colonoscopy 2002 Colorectal Cancer Screening 2002 Fecal Occult Blood Test 2002 Sigmoidoscopy 2002 DXA Scan 2022 DTaP,Tdap,and Td Vaccines (2 - Td or [...] interpreted or resulted by a [facility] or [facility] contracted radiologist. Jose Palacios DO RADIOLOGY (RAD GENERAL) documented in this encounter Advance Directives Latest Code Status on File Code Status Date Activated Date Inactivated Comments Full Code 12/31/2023 12:19 PM This orde r reflects the patients wishes and were consensually agreed upon. Question Answer Comments Discussion of Advance Directives occurred with: Patient
--- OUTSIDE RECORDS SUMMARY | 2024-01-15 04:19 | External Medical Summary | Summary of Care ---
Author Name Unknown Organization [facility] Address [address] [place] [address] Phone [phone] Care Team Providers Care Chief Controller Name Role Phone Unavailable Primary Care Provider Unavailabl e Encounter Details Date Type Department Care Team (Late st Contact Info) Description 12/27/2023 Orders Only General Internal Medicine, [place] [facility] [address] [place] [address] Jose Palacios, [address] [place], [place] [phone] Active Problems Problem Noted Date Diagnosed Date [...] study not interpreted or resulted [facility] a [facility] or [facility] radiologist. Jose Palacios DO RAD ULTRASOUND documented in this encounter Advance Directives Latest Code Status on File Code Status Date Activated Date Inactivated Comments Full Code 12/31/2023 12:19 PM This orde r reflects the patients wishes and were consensually agreed upon. Question Answer Comments Discussion of Advance Directives occurred with: Patient
--- OUTSIDE RECORDS SUMMARY | 2024-01-15 04:19 | External Medical Summary | Summary of Care ---
Author Name Unknown Organization [facility] Address [address] [place] [address] Phone [phone] Care Team Providers Care Body And Frame Man Name Role Phone Unavailable Primary Care Provider Unavailabl e Encounter Details Date Type Department Care Team (Late st Contact Info) Description 12/29/2023 Orders Only General Internal Medicine, [facility] [address] [place], [place] [phone] Jose Palacios, [address] [place], [place] [phone] Active Problems Problem Noted Date Diagnosed Date [...] interpreted or resulted by a [facility] or [facility] radiologist. Jose Palacios DO RAD ULTRASOUND documented in this encounter Advance Directives Latest Code Status on File Code Status Date Activated Date Inactivated Comments Full Code 12/31/2023 12:19 PM This orde r reflects the patients wishes and were consensually agreed upon. Question Answer Comments Discussion of Advance Directives occurred with: Patient
--- OUTSIDE RECORDS SUMMARY | 2024-01-15 04:19 | External Medical Summary ---
Author Name Unknown Address Unknown Organization : Laboratory Report Ordering Provider Test Date Status GABRIELLE COLLADO 12/31/2023 12:04:21 Final Observation Date Value Abnormality Reference (Units ) Status Glucose Point of Care 12/31/2023 12:04:21 104 70-120 (mg/dL) Final Performing Location
[2024-01-15 05:43] LABS: Adenovirus PCR Not Detected (NotDetected); Bordetella parapertussis PCR Not Detected (NotDetected); Bordetella pertussis PCR Not Detected (NotDetected); Chlamydia pneumoniae PCR Not Detected (NotDetected); Coronavirus 229E PCR Not Detected (NotDetected); Coronavirus CoV-2 (COVID19)PCR Not Detected (NotDetected); Coronavirus HKU1 PCR Not Detected (NotDetected); Coronavirus NL63 PCR Not Detected (NotDetected); Coronavirus OC43PCR Not Detected (NotDetected); Human Metapneumovirus PCR Not Detected (NotDetected); Influenza A PCR Not Detected (NotDetected); Influenza B PCR Not Detected (NotDetected); Mycoplasma pneumoniae PCR Not Detected (NotDetected); Parainfluenza Virus 1 PCR Not Detected (NotDetected); Parainfluenza Virus 2 PCR Not Detected (NotDetected); Parainfluenza Virus 3 PCR Not Detected (NotDetected); Parainfluenza Virus 4 PCR Not Detected (NotDetected); Respiratory Syncytial VirusPCR DETECTED (NotDetected); Rhinovirus/Enterovirus PCR Not Detected (NotDetected)
--- NOTE | 2024-01-15 07:24 | Emergency Department Note ---
Impression & Plan Shortness of breath, Pleural effusion, Respiratory syncytial virus (RSV), Viral URI ED Provider Note NAME: SHAHEEN OLEARY AGE: 68 SEX: F : 1955 ARRIVES VIA: Walk-In INFORMANT: Patient ED PROVIDER(S): Simone French DO CHIEF COMPLAINT: cough HPI: Patient is a 68-year-old female who presents to the ER who was recently transferred to [facility] and just discharged on Tuesday from [facility] following recent diagnosis of pulmonary mass and was transferred down for a VATS procedure. There was concern initially that this is infectious versus malignancy and prior to transport it was felt as though this is mainly malignant in nature. Patient comes back in today as she notes someone at [facility] that she was rooming with was positive for RSV. She notes that since discharge she has been having a cough, shortness of breath, congestion, and a runny nose. She notes this is all new. Denies any belly pain, nausea, vomiting, or diarrhea. No dysuria, urgency, or frequency. ADDITIONAL HISTORY OBTAINED: Per HPI Chronic Medical/Social Conditions Affecting Care: Per HPI PAST MEDICAL HISTORY:See Below PAST SURGICAL HISTORY:See Below FAMILY HISTORY:See Below SOCIAL HISTORY:See Below HOME MEDICATIONS:See Below ALLERGIES:See Below VITALS:See Below PHYSICAL EXAMINATION: GENERAL: Sitting up in bed, alert, chronically ill-appearing, disheveled EYE EXAM: normal conjunctiva. PERRL and EOM's grossly intact. OROPHARYNX: mucous membranes are moist NECK: supple, no nuchal rigidity, no adenopathy, non-tender LUNGS: Breath sounds diminished on the right. Normal chest wall mechanics incisions are clean dry and intact on the right. HEART: no murmurs, S1 normal and S2 normal ABDOMEN: abdomen soft, non-tender, normo-active bowel sounds, no masses, no rebound or guarding. UPPER EXTREMITIES: upper extremities are grossly normal. LOWER EXTREMITIES: No pitting edema. NEURO EXAM: Normal sensorium, cranial nerves II-XII grossly intact, normal speech, no gross weakness of arms, no gross weakness of legs. MEDICAL DECISION MAKING: Patient is a 68-year-old female who presents ER for the above-stated complaint. External records reviewed from [facility] and during the VATS procedure biopsies were negative. She further went on her IR and biopsies are still pending. IV was established blood work was obtained. Labs show mild leukocytosis of 15,000. Mild anemia at 7.6 fairly consistent with previous. Platelets of 568. INR unremarkable. BMP along with LFTs bilirubin was unremarkable. Troponin was mildly elevated at 16. Pro-Nathanael 1.84. Viral panel was positive for RSV. Chest x-ray suggest a large effusion. Case was discussed with pulmonology who agreed with admission and close monitoring. With the positive RSV and upper respiratory symptoms pulse ox was 90%. Patient was fairly tachypneic. Consults/Care Managements Discussions: Per [facility] Triage Nursing notes reviewed. Limited review of prior medical records performed Vital Signs: reviewed and remarkable for no significant abnormalities Differential diagnosis: Differential diagnoses includes but is not limited to pneumonia, bronchitis, COPD/Asthma exacerbation, pneumothorax, pulmonary embolism, congestive heart failure, acute coronary syndrome ER treatment provided: See below Diagnostics interpreted by me include EKG and cardiac monitoring as listed below: -Cardiac Monitoring: An order was placed for continuous cardiac monitoring. The monitor shows a rate of 101 with sinus rhythm. -ECG: Sinus tachycardia rate of 104 Normal axis No PVCs QTc 457 -Laboratory studies:Interpreted by me as stated above in MDM and shown below. 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 Gil 12/04/20 +MRSA History of difficult intubation cystoscopy, right ureteroscopy, stent placement: 06/22/19: Elective glidescope #[address] grade view [address] [facility] History of tonsillectomy History of lithotripsy History of cystoscopy with stent History of foot surgery Right H/O knee surgery Bilateral History of ankle surgery Left Family History Father Hypertension Hx of CABG Sister Hypertension Colorectal cancer Mother Colorectal cancer Stroke Aunt Myocardial infarction maternal Denies family history of Ovarian cancer Prostate cancer Breast cancer Social History (Updated 01/15/24 @ 10:16 by Wilfredo Jauregui MD) Smoking Status: Never smoker Second Hand Exposure: No; Do You Dip or Chew Tobacco: No; Hx Alcohol Use: No Hx Substance Use: No Preferred Language: Kazakh Communication Ability: Effective Visual Impairment: No Limitations Industrial Arts Teacher Required: No Beliefs That Will Affect Care: None marital status: Single Current Living Situation: Family Current Living Situation Comment: lives with sister 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al status: retired 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: worked in [employer]'s office at [employer] How many Children do You have: 0 Feels Safe at Home: Yes Childhood Exposure to Second-Hand Smoke: No Diet: regular caffeine: Yes (1 cup of tea approx 2x a week) Dental Care, Regularly: Yes Physical Activity Frequency: Daily Physical Activity Frequency Comment: walk Seatbelt Use: always Sunscreen Use: Yes Assistive Devices: Cane, Crutches, Glasses and Walker Allergies Allergies Allergy/AdvReac Type Severity Reaction Status Date / Time Penicillins Allergy Unknown STRONG Verified 12/27/23 19:23 FAMILY HX-NEVER USED. 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 "global upstream marketing manager" Verified 12/27/23 21:06 and "scented soap" - unknown rxn Home Meds Home Medications Medication Instructions Recorded Confirmed acetaminophen 650 mg 0 mg PO DIRECTED PRN Pain 06/22/19 01/15/24 tablet,extended release (Tylenol Arthritis Pain) fluticasone propionate 44 0 puff inhalation BID 12/27/23 01/15/24 mcg/actuation HFA aerosol inhaler lisinopril 10 0 tab PO DAILY 12/27/23 01/15/24 mg-hydrochlorothiazide 12.5 mg tablet Previous Rx's Medication Instructions Recorded fenofibrate micronized 43 mg 43 mg PO DAILY #90 caps 07/13/23 capsule rosuvastatin 40 mg tablet 40 mg PO DAILY #90 tabs 07/13/23 albuterol sulfate 90 mcg/actuation 1 puff inhalation Q6H PRN SOB #8.5 09/29/23 aerosol inhaler (ProAir HFA) grams empagliflozin 10 mg tablet 10 mg PO DAILY #30 tabs 10/30/23 (Jardiance) metformin 500 mg tablet 500 mg PO DAILY #90 tabs 01/04/24 Results & Data (ED) Vital Signs Vital Signs - 24 hr 01/15/24 04:15 01/15/24 04:37 01/15/24 04:42 Temperature 37.2 C Temperature Source Oral Pulse Rate 116 H 107 H Pulse Rate [Apical] 108 H Pulse Rate from SpO2 Sensor 108 H Respiratory Rate 28 H 24 22 Respiratory Effort / Characteristics Short of Breath Respiratory Depth Normal Blood Pressure 137/66 Blood Pressure [Right Arm] 129/74 Blood Pressure Mean 89 Blood Pressure Mean [Right Arm] 92 Blood Pressure Position [Right Arm] Lying Pulse Oximetry 94 96 96 Oxygen Delivery Method Nasal Cannula Room Air Oxygen Flow Rate 2 Sepsis Recent Fever Within 48 Hours No Sepsis New/Unexplained Change in Mental Status N/A Sepsis Action Taken by Nursing No Action Required 01/15/24 05:00 01/15/24 05:00 01/15/24 05:30 Temperature Temperature Source Pulse Rate 111 H 110 H Pulse Rate [Apical] Pulse Rate from SpO2 Sensor 111 H 110 H Respiratory Rate 20 27 H Respiratory Effort / Characteristics Respiratory Depth Blood Pressure 157/64 H Blood Pressure [Right Arm] Blood Pressure Mean 106 Blood Pressure Mean [Right Arm] Blood Pressure Position [Right Arm] Pulse Oximetry 95 96 Oxygen Delivery Method Oxygen Flow Rate Sepsis Recent Fever Within 48 Hours Sepsis New/Unexplained Change in Mental Status Sepsis Action Taken by Nursing 01/15/24 05:31 01/15/24 05:31 01/15/24 06:00 Temperature Temperature Source Pulse Rate 110 H 106 H Pulse Rate [Apical] Pulse Rate from SpO2 Sensor 109 H 104 H Respiratory Rate 17 30 H Respiratory Effort / Characteristics Respiratory Depth Blood Pressure 155/84 H Blood Pressure [Right Arm] Blood Pressure Mean 86 Blood Pressure Mean [Right Arm] Blood Pressure Position [Right Arm] Pulse Oximetry 97 97 Oxygen Delivery Method Oxygen Flow Rate Sepsis Recent Fever Within 48 Hours Sepsis New/Unexplained Change in Mental Status Sepsis Action Taken by Nursing 01/15/24 06:00 01/15/24 07:19 01/15/24 08:48 Temperature Temperature Source Pulse Rate 104 H 102 H Pulse Rate [Apical] Pulse Rate from SpO2 Sensor Respiratory Rate 18 Respiratory Effort / Characteristics Respiratory Depth Blood Pressure 119/66 Blood Pressure [Right Arm] Blood Pressure Mean 82 Blood Pressure Mean [Right Arm] Blood Pressure Position [Right Arm] Pulse Oximetry 92 Oxygen Delivery Method Room Air Oxygen Flow Rate Sepsis Recent Fever Within 48 Hours Sepsis New/Unexplained Change in Mental Status Sepsis Action Taken by Nursing Laboratory Data 01/15/24 07:35 01/15/24 07:35 Lab Results 01/15/24 Range/Units 07:35 WBC 15.86 H (4.8-10.8) K/ul RBC 2.47 L (4.20-5.40) M/uL Hgb 7.6 L (12.0-16.0) g/dl Hct 23.7 L (37.0-47.0) % MCV 96.0 (80.0-100.0) fL MCH 30.8 (25.0-34.0) pg MCHC 32.1 (32.0-36.0) g/dL RDW Std Deviation 49.2 H (36.4-46.3) fL RDW Coeff of Marcos 14.4 (11.5-14.5) % Plt Count 568 H (130-400) K/uL MPV 8.4 L (9.4-12.4) fL Immature Gran % (Auto) 1.5 % Neut % (Auto) 82.0 % Lymph % (Auto) 8.2 % Dickenson % (Auto) 7.3 % Eos % (Auto) 0.1 % Baso % (Auto) 0.9 % Neut # (Auto) 13.01 H (1.40-6.50) K/uL Lymph # (Auto) 1.30 (1.20-3.40) K/uL Dickenson # (Auto) 1.16 H (0.11-0.59) K/uL Eos # (Auto) 0.01 (0.00-0.50) K/uL Baso # (Auto) 0.15 (0.00-0.20) K/uL Immature Gran # (Auto) 0.23 H (0.01-0.20) K/uL Absolute Nucleated RBC 0.02 (0.00-0.12) K/uL Nucleated RBC % (auto) 0.1 % Polychromasia 1+ Stomatocytes 1+ PT 12.1 H (9.0-12.0) Seconds INR 1.1 (0.9-1.1) Sodium 140 (136-145) mmol/L Potassium 4.3 (3.5-5.1) mmol/L Chloride 104 (98-107) mmol/L Carbon Dioxide 28 (21-32) mmol/L Anion Gap 8 (3-11) BUN 25 H (6-23) mg/dl Creatinine 1.16 (0.6-1.2) mg/dl Est Cr Clr Drug Dosing Not Reportable Est GFR ( Amer) 56.8 ml/min Est GFR (Non-Af Amer) 49.0 ml/min BUN/Creatinine Ratio 21.6 H (10-20) Glucose 107 H (70-99(Fasting)) mg/dl Calcium 8.3 L (8.6-10.3) mg/dl Total Bilirubin 0.6 (0.2-1.0) mg/dl AST 23 (13-39) U/L ALT 14 (7-52) U/L Alkaline Phosphatase 259 H (34-104) U/L Troponin I High Sens 16.4 H (0-14) pg/ml Total Protein 6.5 (6.0-8.3) gm/dl Albumin 2.9 L (3.4-5.0) gm/dl Globulin 3.6 (2.5-4.0) gm/dl Albumin/Globulin Ratio 0.8 L (0.9-2) Lipase 11 (11-82) U/L Administered Medications Benzonatate (Benzonatate 100 Mg Capsule) 100 mg PO TID [facility] Stop: 02/14/24 13:59 Last Admin: 01/15/24 13:38 Dose: 100 mg Documented By: BREN Guaifenesin (Guaifenesin 600 Mg Tabcr) 1,200 mg PO Q12 DARIUS Stop: 02/14/24 13:29 Last Admin: 01/15/24 13:38 Dose: 1,200 mg Documented By: BREN Discontinued Medications Benzonatate (Benzonatate 100 Mg Capsule) 100 mg PO NOW ONE Stop: 01/15/24 07:20 Last Admin: 01/15/24 07:40 Dose: 100 mg Documented By: DYLAN Ioversol (Optiray 320 125ml) 117 ml IV ONCE ONE Stop: 01/15/24 11:56 Last Admin: 01/15/24 11:55 Dose: 117 ml Documented By: JAMAL Levalbuterol HCl (Levalbuterol 1.25 Mg/3 Ml Neb) 1.25 mg INH NOW STA Stop: 01/15/24 10:05 Last Admin: 01/15/24 10:08 Dose: 1.25 mg Documented By: DYLAN Prednisone (Prednisone 20 Mg Tab) 40 mg PO NOW STA Stop: 01/15/24 09:51 Last Admin: 01/15/24 10:11 Dose: 40 mg Documented By: DYLAN Imaging Data Radiologist's Impression: Chest X-Ray 01/15/24 05:51 XR chest 1V portable HISTORY: 68 years-old Female cough, sob acute cough or shortness of breath COMPARISON: 12/31/2023 , chest CT 12/27/2023. TECHNIQUE: AP view of the chest FINDINGS: Cardiac silhouette is enlarged. Patient is rotated. No pneumothorax. Pulmonary vascular congestion. Moderate to large right-sided pleural effusion with right lung volume loss/opacity is again noted. Multiple masses in the right hemithorax with left lung nodules again noted. Bones appear grossly intact. IMPRESSION: 1. Moderate to large right-sided pleural effusion with right lung volume loss and right basilar opacities are redemonstrated. 2. Multiple masses within the right hemithorax and left lung nodules, better depicted on prior chest CT. ACT 112: Negative or not required by law. The above report was generated using voice recognition software. It may contain grammatical, syntax or spelling errors. Electronically signed by: Fredy Little M.D. 01/15/2024 7:27 AM Chest CTA 01/15/24 09:50 CT angio chest PE protocol CT DOSE: 772.95 mGy.cm HISTORY: 68 years-old Female with R malignant effusion, RLL mass, RSV+, dyspnea. Follow-up study in a patient with right pleural effusion TECHNIQUE: Multiple CTA images of the chest were obtained after the intravenous administration of 117 ml Optiray. Coronal and sagittal MIPS were obtained from the axial data set and were submitted for review. All measurements were obtained according to NASCET criteria. A dose lowering technique was utilized adhering to the principles of ALARA. COMPARISON: Chest radiograph of same day, chest CT 12/27/2023, CT chest 09/08/2022 FINDINGS: CTA: Moderate cardiomegaly. No pericardial effusion. No thoracic aortic aneurysm or dissection identified. Study is degraded by respiratory motion. No central pulmonary emboli identified. CT CHEST: No thyroid nodule. There is stable pathologic lymphadenopathy which includes a 1.7 x 1.3 cm subcarinal lymph node on image 133. A few scattered subcentimeter gastrohepatic lymph nodes appear stable. Partially loculated moderate-sized right pleural effusion redemonstrated with right greater than left pleural based masses and numerous scattered bilateral solid pulmonary nodules are redemonstrated. Index 2.4 cm pleural-based mass of the left upper lobe on image 143 previously measured 1.7 cm. 2.1 cm nodule within the lingula on image 124 previously measured 1.8 cm. 1.3 cm right upper lobe nodule on image 168 previously measured 1.2 cm. Volume loss with consolidation in the right lung base is similar to prior. No overt pulmonary edema. Tiny hiatal hernia. Hepatic steatosis. Unchanged 1 cm subcutaneous nodule in the left upper anterior abdominal wall on image 27 series 4. No acute fracture or destructive bony lesion. IMPRESSION: 1. Study is degraded by respiratory motion artifact. No pulmonary emboli identified. 2. Partially loculated moderate-sized right pleural effusion with right greater than left pleural based masses redemonstrated. Several of the pulmonary nodules and pleural-based lesions have mildly increased in size compared to the study from 12/28/2023. 3. Generally stable lymphadenopathy. 4. Unchanged 1 cm subcutaneous nodule within the left upper abdominal wall. ACT 112: Negative or not required by law. The above report was generated using voice recognition software. It may contain grammatical, syntax or spelling errors. Electronically signed by: Fredy Little M.D. 01/15/2024 12:40 PM Discharge Plan Visit Data Chief Complaint: Cough Stated Complaint: COUGH, SOB ED Provider: Simone French Discharge Problem: Shortness of breath, Pleural effusion, Respiratory syncytial virus (RSV), Viral URI Discharge Instructions Interventions: ED Discharge Assessment Last Done: 01/15/24 13:12
--- NOTE | 2024-01-15 07:30 | XRay Report ---
XR chest 1V portable HISTORY: 68 years-old Female cough, sob acute cough or shortness of breath COMPARISON: 12/31/2023 , chest CT 12/27/2023. TECHNIQUE: AP view of the chest FINDINGS: Cardiac silhouette is enlarged. Patient is rotated. No pneumothorax. Pulmonary vascular congestion. M oderate to large right-sided pleural effusion with right lung volume loss/opacity is again noted. Mul tiple masses in the right hemithorax with left lung nodules again noted. Bones appear grossly intact. IMPRESSION: 1. Moderate to large right-sided pleural effusion with right lung volume loss and right basilar opaci ties are redemonstrated. 2. Multiple masses within the right hemithorax and left lung nodules, better depicted on prior chest CT. ACT 112: Negative or not required by law. The above report was generated using voice recognition software. It may contain grammatical, syntax o r spelling errors. Electronically signed by: Fredy Little M.D. 01/15/2024 7:27 AM
[2024-01-15] MEDS: BENZONATATE 100 MG CAPSULE PO ONE (07:40)
[2024-01-15 08:02] LABS: Basophils # (auto) 0.15 K/uL (0.00-0.20); Basophils % (auto) 0.9 %; Eosinophils # (auto) 0.01 K/uL (0.00-0.50); Eosinophils % (auto) 0.1 %; Hematocrit (blood only) 23.7 % (37.0-47.0); Hemoglobin 7.6 g/dl (12.0-16.0); Immature Granulocytes # (auto) 0.23 K/uL (0.01-0.20); Immature Granulocytes % (auto) 1.5 %; Lymphocytes % (auto) 8.2 %; Mean Corpuscular Hemoglobin 30.8 pg (25.0-34.0); Mean Corpuscular Hgb Conc 32.1 g/dL (32.0-36.0); Mean Platelet Volume 8.4 fL (9.4-12.4); Monocytes # (auto) 1.16 K/uL (0.11-0.59); Monocytes % (auto) 7.3 %; Neutrophils # (auto) 13.01 K/uL (1.40-6.50); Nucleated RBC # (auto) 0.02 K/uL (0.00-0.12); Nucleated RBC % (auto) 0.1 %; Platelet Count 568 K/uL (130-400); RDW Coefficient of Variation 14.4 % (11.5-14.5); RDW Standard Deviation 49.2 fL (36.4-46.3); Red Blood Count 2.47 M/uL (4.20-5.40); White Blood Count 15.86 K/ul (4.8-10.8)
[2024-01-15 08:12] LABS: Alanine Aminotransferase 14 U/L (7-52); Albumin Globulin Ratio 0.8 (0.9-2); Albumin Level 2.9 gm/dl (3.4-5.0); Alkaline Phosphatase 259 U/L (34-104); Anion Gap 8 (3-11); Aspartate Aminotransferase 23 U/L (13-39); BUN Creatinine Ratio 21.6 (10-20); Bilirubin,Total 0.6 mg/dl (0.2-1.0); Blood Urea Nitrogen 25 mg/dl (6-23); Calcium 8.3 mg/dl (8.6-10.3); Carbon Dioxide 28 mmol/L (21-32); Chloride 104 mmol/L (98-107); Est GFR (African American) 56.8 ml/min; Globulin 3.6 gm/dl (2.5-4.0); Glucose 107 mg/dl (70-99(Fasting)); Lipase 11 U/L (11-82); Potassium 4.3 mmol/L (3.5-5.1); Sodium 140 mmol/L (136-145); Total Protein 6.5 gm/dl (6.0-8.3)
[2024-01-15 08:15] LABS: INR 1.1 (0.9-1.1); Prothrombin Time 12.1 Seconds (9.0-12.0)
[2024-01-15 08:16] LABS: Troponin I High Sensitivity 16.4 pg/ml (0-14)
[2024-01-15 08:24] LABS: Polychromasia 1+; Stomatocytes 1+
[2024-01-15] MEDS ORDERED: LEVALBUTEROL 1.25MG/0.5ML NEB NEB STA (09:24)
--- NOTE | 2024-01-15 09:50 | History & Physical Report ---
Date of Service January 15, 2024 Assessment & Plan (1) Acute hypoxic respiratory failure: Plan: 2nd to RSV infection in the setting of known asthma as well as right-sided pleural effusion, right-sided RLL lung mass, atelectasis, etc. Stable on small amount of NC O2 despite very little functional/healthy lung on the right. Supportive care for RSV - xopenex/atrovent nebs, NC O2, mucinex, tessalon, flutter valve, incentive spirometry, prednisone, etc. Right-sided lung findings - extensive Rx for this last hospital admission in December here along with her recent hospitalization at [facility] -- see "history" section of this note for further details. Pulmonary consultation has been requested with Dr Jey Oscar for his assistance in this complex situation. (2) RSV (respiratory syncytial virus infection): Plan: Droplet precautions. Supportive care. Prednisone 40mg daily with first dose now. Scheduled nebs. Pulmonary toilet. Procalcitonin noted to be elevated, and there is dense consolidation on the chest CT today in the RLL. I cannot rule out a superimposed bacterial post-obstructive pneumonia. Thus, obtained blood cx's and started cefepime. MRSA swab neg - will defer on MRSA coverage for now. (3) Asthma with exacerbation: Plan: Prior history of asthma - dx 10+ years ago. B/l wheezing in the setting of #2. Start scheduled nebs, cough meds, prednisone, etc. See #1, #2 above. (4) Anemia: Plan: I obtained a d/c summary from [facility] from her stay from December to January 12. On 01/12 her hemoglobin was about 7.5. Her sister reports she received IV iron while in [place]. Recheck cbc in am along with Fe studies, B12, and folate. Tx PRBCs if Hb <7. (5) Prediabetes: Plan: Last Hba1c was 6.2% in 09/2023. Check BSGs ac/hs. DM diet. Add novolog SSI if necessary. (6) Multiple pulmonary nodules: Plan: as seen on serial CT chests. highly worrisome for malignancy. atypical infection theoretically possible but highly unlikely. all bronch cultures from 12/2023 at [facility] were negative except for duane which likely does not require Rx. (7) Pleural effusion: Plan: right-sided, moderate-large. cell counts from thoracentesis in December at [facility] c/w exudative effusion. presumed malignant in etiology. a large component of this effusion is bloody (RBCs on that thoracentesis were markedly elevated). s/p VATS procedure at [facility] in late December. by report biopsies from the VATS were negative/non-diagnostic. on CT today the effusion is at least moderate in size. Dr Oscar from pulmonary consulted. (8) Right lower lobe lung mass: Plan: Highly worrisome for malignancy but all the only biopsies to date with any abnormality were from [facility] in December. s/p EBUS with 2 lymph nodes with atypical cells concerning for malignancy but o/w could not make a formal diagnosis. IR guided biopsy at [facility] done --> pathology is pending; will call 01/15 to see if any results are available. (9) Hypertension: Plan: lisinopril-HCTZ are both on hold at this time. BPs acceptable off of it. (10) Acute metabolic encephalopathy: Plan: 2nd to #1, #2. supportive care. (11) DVT prophylaxis: Plan: will d/w pulmonary if chemical DVT proph is acceptable knowing that her right pleural effusion is bloody. (12) STEWART (acute kidney injury): Plan: peak Cr 2.4 in mid-December at [facility]. likely pre-renal at that time. resolved - Cr today wnl at 1.1. repeat BMP in am tomorrow for stability. Plan appreciate pulmonary assistance. highly complex case. prolonged care & coordination due to the complexity of her case with 110 minutes spent on - d/c summary acquisition & review; review of all past notes from 12/2023 hospitalization; review of radiology images with Dr Oscar; review of pathology/labs from 12/2023 admission; Rx of RSV bronchitis/asthma flare, etc. History of Present Illness Chief Complaint: severe cough, shortness of breath Primary Care Provider: Riya Zelaya MD Pleasant 68yo female with history of asthma, HTN, CKD stage 3a, and pre-DM who was hospitalized at [facility] from 12/27 to 12/31/23 after suffering a pre-syncopal episode at a local physician's office. She was admitted following this event and as part of her work-up a chest x-ray showed significant pathology of the right chest. She therefore underwent a chest CT on 12/27/23 showing a 7.3 cm right lower lobe mass with probable invasion of the pleura. Multiple pulmonary nodules were seen bilaterally. A right-sided pleural effusion was present. On 12/29/23 our IR department attempted to biopsy the right pleural mass and perform thoracentesis. The fluid was bloody & loculated and only 10mL was able to be removed. [facility] Pulmonary was consulted and on 12/30/23 she underwent bronchoscopy with EBUS. Chest tube on the right was attempted but was unsuccessful. During EBUS the right hilar mass seemed to be very vascular. During that previous stay the pleural effusion worsened and due to inability to obtain diagnosis it was decided to transfer patient to [facility] to undergo VATS procedure. She was transferred on 12/31/23 to [facility] [place]. While there she did indeed undergo VATS of the right chest along with chest tube placement. Apparently biopsies from the VATS were negative/benign. Therefore, an IR-guided biopsy was then attempted on 01/12/24. Chest tube was removed on 01/12/24 as well. She was d/c from [facility] on 01/13/24 on 2 L NC O2 continuously. Upon d/c from [facility] the patient states she was not feeling well. She had a mild cough at that time. Apparently her roommate at [facility] had tested + for RSV while she was hospitalized in [place]. She was tested for RSV at [facility] [place] but it returned negative. On Tuesday PM, 01/12, she & her twin sister stayed in [place] in a hotel. She apparently coughed much of the night Tuesday pm into Tuesday. Her oxygen had run out before coming back to [place] on Tuesday. She felt unwell all day yesterday with cough, shortness of breath, and poor appetite. She coughed all night again last pm and they decided to be evaluated in our ER this am due to the worsening symptoms. Resp [employer] returned + for RSV. During my admission assessment she looked unwell and was mildly confused. She coughed throughout the visit. She c/o dyspnea, fatigue, and simply feeling unwell. Cough is largely dry with occasional white mucous. Rare blood. Allergies Allergy/AdvReac Type Severity Reaction Status Date / Time Penicillins Allergy Unknown STRONG Verified 12/27/23 19:23 FAMILY HX-NEVER USED. 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 "parachute supervisor" Verified 12/27/23 21:06 and "scented soap" - unknown rxn Home Medications Medication Instructions Recorded Confirmed Type acetaminophen 650 mg 0 mg PO DIRECTED PRN Pain 06/22/19 01/15/24 History tablet,extended release (Tylenol Arthritis Pain) fenofibrate micronized 43 mg 43 mg PO DAILY #90 caps 07/13/23 01/15/24 Rx capsule rosuvastatin 40 mg tablet 40 mg PO DAILY #90 tabs 07/13/23 01/15/24 Rx albuterol sulfate 90 mcg/actuation 1 puff inhalation Q6H PRN SOB #8.5 09/29/23 01/15/24 Rx aerosol inhaler (ProAir HFA) grams empagliflozin 10 mg tablet 10 mg PO DAILY #30 tabs 10/30/23 01/15/24 Rx (Jardiance) fluticasone propionate 44 0 puff inhalation BID 12/27/23 01/15/24 History mcg/actuation HFA aerosol inhaler lisinopril 10 0 tab PO DAILY 12/27/23 01/15/24 History mg-hydrochlorothiazide 12.5 mg tablet metformin 500 mg tablet 500 mg PO DAILY #90 tabs 01/04/24 01/15/24 Rx Past Med/Surg History Medical History (Updated 01/16/24 @ 05:44 by Wilfredo Jauregui MD) STEWART (acute kidney injury) Pleural effusion RIGHT, suspected malignant - Multiple pulmonary nodules Psoriasis Prediabetes Ureterolithiasis Pneumonia Hidradenitis suppurativa of left axilla Hypertension Arthritis Asthma stable Obesity Encephalitis at age 9, 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 Gil 12/04/20 +MRSA History of difficult intubation cystoscopy, right ureteroscopy, stent placement: 06/22/19: Elective glidescope #3 grade view 1 at [facility] History of tonsillectomy History of lithotripsy History of cystoscopy with stent History of foot surgery Right H/O knee surgery Bilateral History of ankle surgery Left Family History Father Hypertension Hx of CABG Sister Hypertension Colorectal cancer Mother Colorectal cancer Stroke Aunt Myocardial infarction maternal Denies family history of Ovarian cancer Prostate cancer Breast cancer Social History (Updated 01/15/24 @ 10:16 by Wilfredo Jauregui MD) Smoking Status: Never smoker Second Hand Exposure: No; Do You Dip or Chew Tobacco: No; Hx Alcohol Use: No Hx Substance Use: No Preferred Language: Kuwaiti Communication Ability: Effective Visual Impairment: No Limitations Lead Driver Required: No Beliefs That Will Affect Care: None marital status: Single Current Living Situation: Family Current Living Situation Comment: Lives with sister. 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al status: retired 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: worked in [employer]'s office at [employer] How many Children do You have: 0 Feels Safe at Home: Yes Childhood Exposure to Second-Hand Smoke: No Diet: regular caffeine: Yes (1 cup of tea approx 2x a week) Dental Care, Regularly: Yes Physical Activity Frequency: Daily Physical Activity Frequency Comment: walk Seatbelt Use: always Sunscreen Use: Yes Assistive Devices: Glasses, Oxygen - Continuous and Walker Review of Systems Review of Systems: gen - no fevers, poor appetite, generalized unwellness eyes - no drainage HENT - some mild congestion, no sore throat CV - no chest pain pulm - severe cough, wheezing, dyspnea and dyspnea on exertion, pain over prior VATS site and IR biopsy site GI - no abd pain, nausea or emesis; no melena or BRBPR - no dysuria or foul-smelling urine musculo - denies joint pain neuro - no headache, numbness L 4th/5th fingers - present since being at [facility] skin - no generalized rash endo - pre-diabetes only Physical Exam Physical Exam: gen - mildly confused, appears sickly, coughing, tachypneic eyes - PERRL HENT - ears - TMs clear b/l; mouth - minor ulcerations and erythema posterior palate neck - no JVD, no obvious lymph nodes heart - tachy, s1 s2, regular rhythm, no murmur lungs - wheezing b/l, worse on left; significantly decreased BS right lung about 1/[address] up back; dullness to percussion on right, about 1/[address] up back; tachypnea, coughing, subtle retractions subcostally; no rales abd - soft NT ND BS+; no HSM ext - no edema, pulses 2+ b/l neuro - strength 5/5 x 4 exts; DTRs 2+ b/l skin - VATs incision on right clean; former chest tube site on right covered w/ dressing; former IR biopsy site on left chest clean & covered with dressing; no generalized rash; scars over both knees psych - mildly confused but able to follow commands Results & Data Results & Data Vital Signs (Past 12 Hours) Vital Signs Temp Pulse Pulse Resp BP BP Pulse Ox 01/15/24 08:48 102 H 01/15/24 07:19 104 H 18 92 01/15/24 06:00 119/66 01/15/24 06:00 106 H 30 H 97 01/15/24 05:31 155/84 H 01/15/24 05:31 110 H 17 97 01/15/24 05:30 110 H 27 H 96 01/15/24 05:00 157/64 H 01/15/24 05:00 111 H 20 95 01/15/24 04:42 108 H 22 129/74 96 01/15/24 04:37 107 H 24 96 01/15/24 04:15 37.2 C 116 H 28 H 137/66 94 O2 Del Method O2 Flow Rate 01/15/24 08:48 01/15/24 07:19 Room Air 01/15/24 06:00 01/15/24 06:00 01/15/24 05:31 01/15/24 05:31 01/15/24 05:30 01/15/24 05:00 01/15/24 05:00 01/15/24 04:42 Room Air 01/15/24 04:37 01/15/24 04:15 Nasal Cannula 2 Laboratory Results Laboratory Results - last 24 hr 01/15/24 01/15/24 01/15/24 07:35 10:45 14:13 WBC 15.86 H RBC 2.47 L Hgb 7.6 L Hct 23.7 L MCV 96.0 MCH 30.8 MCHC 32.1 RDW Std Deviation 49.2 H RDW Coeff of Marcos 14.4 Plt Count 568 H MPV 8.4 L Immature Gran % (Auto) 1.5 Neut % (Auto) 82.0 Lymph % (Auto) 8.2 [place] % (Auto) 7.3 Eos % (Auto) 0.1 Baso % (Auto) 0.9 Neut # (Auto) 13.01 H Lymph # (Auto) 1.30 [place] # (Auto) 1.16 H Eos # (Auto) 0.01 Baso # (Auto) 0.15 Immature Gran # (Auto) 0.23 H Absolute Nucleated RBC 0.02 Nucleated RBC % (auto) 0.1 Polychromasia 1+ Stomatocytes 1+ PT 12.1 H INR 1.1 Sodium 140 Potassium 4.3 Chloride 104 Carbon Dioxide 28 Anion Gap 8 BUN 25 H Creatinine 1.16 Est Cr Clr Drug Dosing Not Reportable Est GFR ( Amer) 56.8 Est GFR (Non-Af Amer) 49.0 BUN/Creatinine Ratio 21.6 H Glucose 107 H POC Glucose Lactate 1.2 Calcium 8.3 L Phosphorus 3.4 Magnesium 1.9 Total Bilirubin 0.6 AST 23 ALT 14 Alkaline Phosphatase 259 H Troponin I High Sens 16.4 H Total Protein 6.5 Albumin 2.9 L Globulin 3.6 Albumin/Globulin Ratio 0.8 L Lipase 11 Procalcitonin 0.84 H Nasal Screen MRSA (PCR) Negative Adenovirus (PCR) B. pertussis DNA (PCR) B.parapertussis DNA PCR C. pneumoniae DNA (PCR) Coronavirus OC43 (PCR) Coronavirus HKU1 (PCR) Coronavirus 229E (PCR) SARS-CoV-2 (PCR) Coronavirus NL63 (PCR) Hepatitis C Ab (EIA) Pending Human Metapneumovir PCR Influenza Type A (PCR) Influenza Type B (PCR) M. pneumoniae (PCR) Parainfluenza 1 (PCR) Parainfluenza 2 (PCR) Parainfluenza 3 (PCR) Parainfluenza 4 (PCR) RSV (PCR) Entero/Rhino (PCR) 01/15/24 01/15/24 01/15/24 17:34 19:33 Unknown WBC RBC Hgb Hct MCV MCH MCHC RDW Std Deviation RDW Coeff of Marcos Plt Count MPV Immature Gran % (Auto) Neut % (Auto) Lymph % (Auto) [place] % (Auto) Eos % (Auto) Baso % (Auto) Neut # (Auto) Lymph # (Auto) [place] # (Auto) Eos # (Auto) Baso # (Auto) Immature Gran # (Auto) Absolute Nucleated RBC Nucleated RBC % (auto) Polychromasia Stomatocytes PT INR Sodium Potassium Chloride Carbon Dioxide Anion Gap BUN Creatinine Est Cr Clr Drug Dosing Est GFR ( Amer) Est GFR (Non-Af Amer) BUN/Creatinine Ratio Glucose POC Glucose 159 H 143 H Lactate Calcium Phosphorus Magnesium Total Bilirubin AST ALT Alkaline Phosphatase Troponin I High Sens Total Protein Albumin Globulin Albumin/Globulin Ratio Lipase Procalcitonin Nasal Screen MRSA (PCR) Adenovirus (PCR) Not Detected B. pertussis DNA (PCR) Not Detected B.parapertussis DNA PCR Not Detected C. pneumoniae DNA (PCR) Not Detected Coronavirus OC43 (PCR) Not Detected Coronavirus HKU1 (PCR) Not Detected Coronavirus 229E (PCR) Not Detected SARS-CoV-2 (PCR) Not Detected Coronavirus NL63 (PCR) Not Detected Hepatitis C Ab (EIA) Human Metapneumovir PCR Not Detected Influenza Type A (PCR) Not Detected Influenza Type B (PCR) Not Detected M. pneumoniae (PCR) Not Detected Parainfluenza 1 (PCR) Not Detected Parainfluenza 2 (PCR) Not Detected Parainfluenza 3 (PCR) Not Detected Parainfluenza 4 (PCR) Not Detected RSV (PCR) DETECTED A Entero/Rhino (PCR) Not Detected Diagnostic Findings Chest X-Ray 01/15/24 05:51 XR chest 1V portable HISTORY: 68 years-old Female cough, sob acute cough or shortness of breath COMPARISON: 12/31/2023 , chest CT 12/27/2023. TECHNIQUE: AP view of the chest FINDINGS: Cardiac silhouette is enlarged. Patient is rotated. No pneumothorax. Pulmonary vascular congestion. Moderate to large right-sided pleural effusion with right lung volume loss/opacity is again noted. Multiple masses in the right hemithorax with left lung nodules again noted. Bones appear grossly intact. IMPRESSION: 1. Moderate to large right-sided pleural effusion with right lung volume loss and right basilar opacities are redemonstrated. 2. Multiple masses within the right hemithorax and left lung nodules, better depicted on prior chest CT. ACT 112: Negative or not required by law. The above report was generated using voice recognition software. It may contain grammatical, syntax or spelling errors. Electronically signed by: Fredy Little M.D. 01/15/2024 7:27 AM Chest CTA 01/15/24 09:50 CT angio chest PE protocol CT DOSE: 772.95 mGy.cm HISTORY: 68 years-old Female with R malignant effusion, RLL mass, RSV+, dyspnea. Follow-up study in a patient with right pleural effusion TECHNIQUE: Multiple CTA images of the chest were obtained after the intravenous administration of 117 ml Optiray. Coronal and sagittal MIPS were obtained from the axial data set and were submitted for review. All measurements were obtained according to NASCET criteria. A dose lowering technique was utilized adhering to the principles of ALARA. COMPARISON: Chest radiograph of same day, chest CT 12/27/2023, CT chest 09/08/2022 FINDINGS: CTA: Moderate cardiomegaly. No pericardial effusion. No thoracic aortic aneurysm or dissection identified. Study is degraded by respiratory motion. No central pulmonary emboli identified. CT CHEST: No thyroid nodule. There is stable pathologic lymphadenopathy which includes a 1.7 x 1.3 cm subcarinal lymph node on image 133. A few scattered subcentimeter gastrohepatic lymph nodes appear stable. Partially loculated moderate-sized right pleural effusion redemonstrated with right greater than left pleural based masses and numerous scattered bilateral solid pulmonary nodules are redemonstrated. Index 2.4 cm pleural-based mass of the left upper lobe on image 143 previously measured 1.7 cm. 2.1 cm nodule within the lingula on image 124 previously measured 1.8 cm. 1.3 cm right upper lobe nodule on image 168 previously measured 1.2 cm. Volume loss with consolidation in the right lung base is similar to prior. No overt pulmonary edema. Tiny hiatal hernia. Hepatic steatosis. Unchanged 1 cm subcutaneous nodule in the left upper anterior abdominal wall on image 27 series 4. No acute fracture or destructive bony lesion. IMPRESSION: 1. Study is degraded by respiratory motion artifact. No pulmonary emboli identified. 2. Partially loculated moderate-sized right pleural effusion with right greater than left pleural based masses redemonstrated. Several of the pulmonary nodules and pleural-based lesions have mildly increased in size compared to the study from 12/28/2023. 3. Generally stable lymphadenopathy. 4. Unchanged 1 cm subcutaneous nodule within the left upper abdominal wall. ACT 112: Negative or not required by law. The above report was generated using voice recognition software. It may contain grammatical, syntax or spelling errors. Electronically signed by: Fredy Little M.D. 01/15/2024 12:40 PM Code Status & VTE Plan Code Status full code PG Care Time/CCT Total # of Minutes Spent Total Time Spent with Patient: Total time spent is greater than 50% in coordination of care (as documented) at patient's floor/unit and/or counseling patient: Coding Level of Care Code 64784 INT INP/OBS CARE 3/75MIN (25 - SIGNIFICANT, SEPARATELY IDENTIFIABLE ) Diagnoses Acute hypoxic respiratory failure J96.01 RSV (respiratory syncytial virus infection) B33.8 Asthma with exacerbation J45.901 Anemia D64.9 Prediabetes R73.03 Multiple pulmonary nodules R91.8 Pleural effusion J90 Right lower lobe lung mass R91.8 Hypertension I10 Acute metabolic encephalopathy G93.41 DVT prophylaxis Z29.9 STEWART (acute kidney injury) N17.9 Time Spent (min) 110
[2024-01-15] MEDS: LEVALBUTEROL 1.25 MG/3 ML NEB INH STA (10:08)
[2024-01-15] MEDS: predniSONE 20 MG TAB PO STA (10:11)
[2024-01-15 11:24] LABS: Magnesium 1.9 mg/dl (1.7-2.4)
[2024-01-15 11:29] LABS: Phosphorus 3.4 mg/dl (2.5-4.9)
[2024-01-15] MEDS: OPTIRAY 320 125ml IV ONE (11:55)
--- NOTE | 2024-01-15 12:42 | CT Scan Report ---
CT angio chest PE protocol CT DOSE: 772.95 mGy.cm HISTORY: 68 years-old Female with R malignant effusion, RLL mass, RSV+, dyspnea. Follow-up study in a patient with right pleural effusion TECHNIQUE: Multiple CTA images of the chest were obtained after the intravenous administration of 117 ml Optiray. Coronal and sagittal MIPS were obtained from the axial data set and were submitted for review. All measurements were obtained according to NASCET criteria. A dose lowering technique was u tilized adhering to the principles of ALARA. COMPARISON: Chest radiograph of same day, chest CT 12/27/2023, CT chest 09/08/2022 FINDINGS: CTA: Moderate cardiomegaly. No pericardial effusion. No thoracic aortic aneurysm or dissection identified. Study is degraded by respiratory motion. No central pulmonary emboli identified. CT CHEST: No thyroid nodule. There is stable pathologic lymphadenopathy which includes a 1.7 x 1.3 cm subcarina l lymph node on image 133. A few scattered subcentimeter gastrohepatic lymph nodes appear stable. Par tially loculated moderate-sized right pleural effusion redemonstrated with right greater than left pl eural based masses and numerous scattered bilateral solid pulmonary nodules are redemonstrated. Index 2.4 cm pleural-based mass of the left upper lobe on image 143 previously measured 1.7 cm. 2.1 cm nod ule within the lingula on image 124 previously measured 1.8 cm. 1.3 cm right upper lobe nodule on dagmar ge 168 previously measured 1.2 cm. Volume loss with consolidation in the right lung base is similar t o prior. No overt pulmonary edema. Tiny hiatal hernia. Hepatic steatosis. Unchanged 1 cm subcutaneous nodule in the left upper anterior abdominal wall on image 27 series 4. No acute fracture or destructive bony lesion. IMPRESSION: 1. Study is degraded by respiratory motion artifact. No pulmonary emboli identified. 2. Partially loculated moderate-sized right pleural effusion with right greater than left pleural bas ed masses redemonstrated. Several of the pulmonary nodules and pleural-based lesions have mildly incr eased in size compared to the study from 12/28/2023. 3. Generally stable lymphadenopathy. 4. Unchanged 1 cm subcutaneous nodule within the left upper abdominal wall. ACT 112: Negative or not required by law. The above report was generated using voice recognition software. It may contain grammatical, syntax o r spelling errors. Electronically signed by: Fredy Little M.D. 01/15/2024 12:40 PM
[2024-01-15] MEDS ORDERED: ACETAMINOPHEN 325 MG TAB PO PRN (13:12)
[2024-01-15] MEDS ORDERED: ONDANSETRON INJ 2 MG/ML 2 ML VIAL IV PRN (13:12)
[2024-01-15] MEDS: guaiFENesin 600 MG TABCR PO SCH (13:38)
[2024-01-15] MEDS: BENZONATATE 100 MG CAPSULE PO SCH (13:38)
[2024-01-15] MEDS ORDERED: Patient's HEIGHT &/or WEIGHT Needed SCH (14:00)
[2024-01-15] MEDS: CEFEPIME 20 ML IV STA (14:08)
--- NOTE | 2024-01-15 14:43 | Procedure Note ---
Procedure Note: Bronchoscopy Procedure PREOPERATIVE DIAGNOSIS: Aspiration pneumonia POSTOPERATIVE DIAGNOSIS: Aspiration PROCEDURE PERFORMED: Flexible fiberoptic bronchoscopy with bronchial washing COMPLICATIONS: None. INDICATION: Evaluate for aspiration pneumonia PROCEDURE: Consent obtained from patient's as patient is intubated and sedated. Time out performed directly prior to to the bronchoscopy. Recommendations: [facility] [place] Procedure Codes (Charges) Pulmonary/Thoracic Procedure 1: Pulmonary and Thoracic: 17636 Dx bronchoscopy/wash
[2024-01-15] MEDS: FENOFIBRATE~ORDER AWAITING ACTION SCH (15:04)
[2024-01-15] MEDS: LEVALBUTEROL 1.25MG/0.5ML NEB NEB SCH (15:36)
--- NOTE | 2024-01-15 15:49 | Pulmonary Consultation ---
Date of Consultation January 15, 2024 Assessment & Plan (1) Respiratory syncytial virus (RSV): (2) Viral URI: (3) Shortness of breath: (4) Right lower lobe lung mass: Plan 68-year-old female with a past medical history of right lower lobe mass who was admitted to the hospital due to an RSV infection. Continue supportive care and broad-spectrum antibiotics per empiric treatment of superimposed infection. Continue nebulizers as needed for viral bronchiolitis. Await biopsy results from interventional radiology biopsy in [place] of the right lower lobe mass. Consider oncology consultation for the masslike consolidation. Will hold on any further pleural interventions or bronchoscopic procedures at this time as we are awaiting the biopsy results from [place] regarding the right lower lobe mass. No further interventions recommended from a pulmonary perspective at this time. Please call with questions. Thank you for the consult. History of Present Illness Reason for Consultation: Hypoxia Attending Physician: Wilfredo Jauregui MD History of Present Illness 68-year-old female with a past medical history of masslike abnormality on the right chest with invasion of the pleura. Patient previously underwent VATS thoracoscopy and EBUS which were both inconclusive. EBUS revealed atypical cell s concerning for malignancy. Patient is scheduled for a biopsy by interventional radiology in the near future. She presented to the ER today due to cough and shortness of breath. She was positive for RSV. She is currently receiving supportive care and is admitted under the hospitalist service. She is on guaifenesin 1200 mg twice daily, Tessalon Perles 100 mg 3 times daily and also on cefepime 2 g 3 times daily to cover for superimposed bacterial infection. Chest CTA completed today reveals partially loculated moderate right side pleural effusion with right greater than left pleural-based mass. Several pulmonary nodules and pleural-based lesions have mildly increased in size compared to 12/28/2023. There is an unchange 1 cm subcutaneous nodule within the left upper lobe abdominal wall. Allergies Allergy/AdvReac Type Severity Reaction Status Date / Time Penicillins Allergy Unknown STRONG Verified 12/27/23 19:23 FAMILY HX-NEVER USED. 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 "distillation operator" Verified 12/27/23 21:06 and "scented soap" - unknown rxn Home Medications Medication Instructions Recorded Confirmed Type acetaminophen 650 mg 0 mg PO DIRECTED PRN Pain 06/22/19 01/15/24 History tablet,extended release (Tylenol Arthritis Pain) fenofibrate micronized 43 mg 43 mg PO DAILY #90 caps 07/13/23 01/15/24 Rx capsule rosuvastatin 40 mg tablet 40 mg PO DAILY #90 tabs 07/13/23 01/15/24 Rx albuterol sulfate 90 mcg/actuation 1 puff inhalation Q6H PRN SOB #8.5 09/29/23 01/15/24 Rx aerosol inhaler (ProAir HFA) grams empagliflozin 10 mg tablet 10 mg PO DAILY #30 tabs 10/30/23 01/15/24 Rx (Jardiance) fluticasone propionate 44 0 puff inhalation BID 12/27/23 01/15/24 History mcg/actuation HFA aerosol inhaler lisinopril 10 0 tab PO DAILY 12/27/23 01/15/24 History mg-hydrochlorothiazide 12.5 mg tablet metformin 500 mg tablet 500 mg PO DAILY #90 tabs 01/04/24 01/15/24 Rx Patient History Medical History (Updated 01/15/24 @ 12:25 by Simone French DO) Pleural effusion RIGHT, suspected malignant - Multiple pulmonary nodules Psoriasis Prediabetes Ureterolithiasis Pneumonia STEWART (acute kidney injury) Hidradenitis suppurativa of left axilla Hypertension Arthritis Asthma stable Obesity Encephalitis at age 9, 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 Gil 12/04/20 +MRSA History of difficult intubation cystoscopy, right ureteroscopy, stent placement: 06/22/19: Elective glidescope #3 grade view 1 at [facility] History of tonsillectomy History of lithotripsy History of cystoscopy with stent History of foot surgery Right H/O knee surgery Bilateral History of ankle surgery Left Family History Father Hypertension Hx of CABG Sister Hypertension Colorectal cancer Mother Colorectal cancer Stroke Aunt Myocardial infarction maternal Denies family history of Ovarian cancer Prostate cancer Breast cancer Social History (Updated 01/15/24 @ 10:16 by Wilfredo Jauregui MD) Smoking Status: Never smoker Second Hand Exposure: No; Do You Dip or Chew Tobacco: No; Hx Alcohol Use: No Hx Substance Use: No Preferred Language: Jamaican Communication Ability: Effective Visual Impairment: No Limitations Cycle Analyst Required: No Beliefs That Will Affect Care: None marital status: Single Current Living Situation: Family Current Living Situation Comment: lives with sister 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al status: retired 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: 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 [employer] office at [employer] How many Children do You have: 0 Feels Safe at Home: Yes Childhood Exposure to Second-Hand Smoke: No Diet: regular caffeine: Yes (1 cup of tea approx 2x a week) Dental Care, Regularly: Yes Physical Activity Frequency: Daily Physical Activity Frequency Comment: walk Seatbelt Use: always Sunscreen Use: Yes Assistive Devices: Cane, Crutches, Glasses and Walker Review of Systems Review of Systems: All systems reviewed & are unremarkable except as noted in HPI & below Physical Exam Physical Exam: Constitutional: No acute distress HEENT: EOMI, PERRLA Respiratory system: Decreased air entry on the right side, no wheeze, rhonchi, positive crackles on the right side CVS: S1-S2 positive, no murmurs or gallops Abdomen: Soft, nontender, nondistended, positive bowel sounds x4, obese Extremities: +2 pulses bilaterally radialis/ dorsalis pedis, no cyanosis, no edema Neuro: Awake alert oriented x3 Psych: Normal mood and affect G/U: No Jackson Skin: no rashes, warm and dry Lymphatic: no cervical or axillary lymphadenopathy Results & Data Results & Data Vital Signs (Past 12 Hours) Vital Signs Temp Pulse Pulse Resp BP BP BP 01/15/24 15:38 99 H 22 01/15/24 15:28 95 H 01/15/24 14:23 01/15/24 13:36 01/15/24 13:35 36.5 C 108 H 28 H 144/60 H 03/03/24 12:52 100 H 01/15/24 08:48 102 H 01/15/24 07:19 104 H 18 01/15/24 06:00 119/66 01/15/24 06:00 106 H 30 H 01/15/24 05:31 155/84 H 01/15/24 05:31 110 H 17 01/15/24 05:30 110 H 27 H 01/15/24 05:00 157/64 H 01/15/24 05:00 111 H 20 01/15/24 04:42 108 H 22 129/74 01/15/24 04:37 107 H 24 01/15/24 04:15 37.2 C 116 H 28 H 137/66 Pulse Ox O2 Del Method O2 Del Method O2 Flow Rate 01/15/24 15:38 94 Nasal Cannula 2 01/15/24 15:28 01/15/24 14:23 Nasal Cannula 2 01/15/24 13:36 Nasal Cannula 01/15/24 13:35 97 Nasal Cannula 2 01/15/24 12:52 01/15/24 08:48 01/15/24 07:19 92 Room Air 01/15/24 06:00 01/15/24 06:00 97 01/15/24 05:31 01/15/24 05:31 97 01/15/24 05:30 96 01/15/24 05:00 01/15/24 05:00 95 01/15/24 04:42 96 Room Air 01/15/24 04:37 96 01/15/24 04:15 94 Nasal Cannula 2 PG Care Time/CCT Total # of Minutes Spent Total Time Spent with Patient: Total time spent is greater than 50% in coordination of care (as documented) at patient's floor/unit and/or counseling patient: Coding Level of Care Code 35998 INT INP/OBS CARE 3/75MIN Diagnoses Respiratory syncytial virus (RSV) B33.8 Viral URI J06.9 Shortness of breath R06.02 Right lower lobe lung mass R91.8
[2024-01-15] MEDS: LEVALBUTEROL 1.25 MG/3 ML NEB ONE ×2 (15:55→20:46)
[2024-01-15] MEDS: CEFEPIME 2,000 MG in SYRINGE 0 ML IV SCH (21:08)
[2024-01-15] MEDS: ALBUT/IPRATROP 3MG/0.5MG NEB 3 ML VIAL ONE (23:55)
[2024-01-16] MEDS: LEVALBUTEROL 1.25 MG/3 ML NEB NEB SCH
[2024-01-16] MEDS: LEVALBUTEROL 1.25 MG/3 ML NEB ONE
--- NOTE | 2024-01-16 05:49 | Billing Data ---
Date of Service January 15, 2024 Coding Level of Care Code PROLONG IP/OBS E/M EA 15 MIN Comment total time spent on admission activities = 110 minutes
[2024-01-16 07:32] LABS: BUN Creatinine Ratio 25.2 (10-20); Calcium 8.1 mg/dl (8.6-10.3); Creatinine Clr Calc Pharmacy 52.6 ml/min; Est GFR (African American) 55.1 ml/min; Est GFR (Non-African American) 47.5 ml/min; Potassium 4.1 mmol/L (3.5-5.1)
[2024-01-16 07:38] LABS: Troponin I High Sensitivity 14.6 pg/ml (0-14)
[2024-01-16 07:39] LABS: Hematocrit (blood only) 22.3 % (37.0-47.0); Hemoglobin 6.8 g/dl (12.0-16.0); Mean Corpuscular Hgb Conc 30.5 g/dL (32.0-36.0); Mean Corpuscular Volume 98.2 fL (80.0-100.0); Mean Platelet Volume 9.9 fL (9.4-12.4); Nucleated RBC # (auto) 0.03 K/uL (0.00-0.12); Nucleated RBC % (auto) 0.2 %; Platelet Count 432 K/uL (130-400); RDW Coefficient of Variation 14.7 % (11.5-14.5); RDW Standard Deviation 50.6 fL (36.4-46.3); Red Blood Count 2.27 M/uL (4.20-5.40); White Blood Count 17.22 K/ul (4.8-10.8)
[2024-01-16 07:48] LABS: Folate (Folic Acid),Ser orPlas 12.69 ng/ml (>5.38)
[2024-01-16] MEDS: FENOFIBRATE NANOCRYSTALLIZED 48 MG TABLET PO SCH (08:02)
[2024-01-16] MEDS: predniSONE 20 MG TAB PO SCH (08:02)
[2024-01-16] MEDS: ROSUVASTATIN CALCIUM 20 MG TAB PO SCH (08:03)
[2024-01-16] MEDS: NYSTATIN SUSP 500,000 U/5 ML UDC PO SCH (08:04)
[2024-01-16 09:17] LABS: Estimated Average Glucose 123 mg/dl; Hemoglobin A1C 5.9 % (4.5-5.6)
--- NOTE | 2024-01-16 11:58 | Hospitalist Progress Note ---
Date of Service January 16, 2024 Assessment & Plan (1) Acute hypoxic respiratory failure: Plan: 2nd to RSV infection in the setting of known asthma as well as right-sided pleural effusion, right-sided RLL lung mass, multiple b/l pulmonary nodules, right-sided atelectasis, etc. No complicating PE or CHF on CTA chest 01/15/24. Supportive care for RSV - xopenex/atrovent nebs, NC O2, tessalon, flutter valve, incentive spirometry, prednisone, etc. Adding hycodan in low-dose for cough. Appreciate pulmonary consultation. Heme/onc consult requested today - see below. (2) RSV (respiratory syncytial virus infection): Plan: With resulting bronchitis/asthma exacerbation. Cont Droplet precautions. Supportive care. Prednisone 40mg daily - day #2 of such. Scheduled nebs. Pulmonary toilet. tessalon pearles. Add hycodan prn cough. Can stop mucinex. Procalcitonin noted to be elevated, and there is dense consolidation on the chest CT in the RLL. I cannot rule out a superimposed bacterial post-obstructive pneumonia. Thus, cont cefepime. Day #2 of such. MRSA swab neg - will defer on MRSA coverage for now. Blood cx's to date negative. Cont NC O2 to maintain O2 sats >92%. (3) Asthma with exacerbation: Plan: Prior history of asthma - dx 10+ years ago. B/l wheezing in the setting of #2. Cont scheduled nebs, cough meds, prednisone, etc. See #1, #2 above. (4) Right lower lobe lung mass: Plan: Dx 12/2023 hospitalization at [facility]. High likelihood for an aggressive malignancy but all biopsies from EBUS done at [facility] in 12/2023 are negative. Only exception is that of 2 lymph nodes with atypical cells concerning for malignancy but o/w could not make a formal diagnosis. Per d/c summary from [facility] hospitalization -- all biopsies from right- sided VATS were negative. Thus, underwent IR guided biopsy at [facility] done (biopsy is on left chest -- did they sample the JUAN nodule?). I called the [facility] pathology department in [place] today to f/u on the IR guided biopsy. Prelim or final report - neither available. Would re-attempt in 48 hours. I requested formal heme/onc consultation today. I discussed her case with Dr Kulkarni in detail. (5) Anemia: Plan: I obtained a d/c summary from [facility] from her stay from December to January 12. On 01/12 her hemoglobin was about 7.5. Hemoglobin here on 01/14 was 7.6. Her sister reports she received IV iron while in [place]. Fe studies, B12, and folate all satisfactory (ferritin markedly high due to acute phase). Hb today is <7 --> consent obtained to transfuse; will give 1 unit of blood today with lasix after such. Repeat cbc am. Obtain a fecal occult. (6) Prediabetes: Plan: Hba1c 5.9% today. BSGs ac/hs. DM diet. Add novolog SSI if necessary. (7) Multiple pulmonary nodules: Plan: as seen on serial CT chest. highly worrisome for aggressive malignancy as multiple nodules have increased in size in just a 2-3 week time frame. atypical infection theoretically possible but highly unlikely. all bronch cultures from 12/2023 at [facility] were negative except for duane which likely does not require Rx. (8) Pleural effusion: Plan: right-sided, moderate-large. cell counts from thoracentesis in December at [facility] c/w exudative effusion. presumed malignant in etiology. a large component of this effusion is bloody (RBCs on that thoracentesis were markedly elevated). s/p VATS procedure at [facility] in late December. by report biopsies from the VATS were negative/non-diagnostic. on CT chest done 01/14 her effusion is at least moderate in size. Dr Oscar from pulmonary consulted. Appreciate his consult. No plans for thoracentesis at this time. (9) Hypertension: Plan: lisinopril-HCTZ are both on hold at this time. BPs acceptable off of it. (10) Acute metabolic encephalopathy: Plan: 2nd to #1, #2. supportive care. (11) DVT prophylaxis: Plan: if H/H are stable tomorrow would add heparin SC for DVT proph (12) STEWART (acute kidney injury): Plan: peak Cr 2.4 in mid-December at [facility]. likely pre-renal at that time. resolved - Cr again today wnl at 1.1. repeat BMP in am tomorrow for stability. (13) Anxiety: Plan: ativan 0.25mg po x 1 given this afternoon for severe anxiety tolerated such could repeat if needed (14) Ovarian cyst: Plan: 4.3cm cyst vs mass on right ovary this was seen on 12/28/23 CT a/p the features of her chest pathology would be very atypical for ovarian ca doubt ovarian ca (15) Candidiasis of mouth and esophagus: Plan: improved cont nystatin tameka - 5cc ac/hs - swish & spit Plan appreciate pulmonary assistance. appreciate heme/onc assistance. place purewick external urinary catheter as getting up to the commode or on a bedpan leads to severe dyspnea Admission and Anticipated Discharge Date Admission Date: January 15, 2024 Subjective tele overnight wnl patient reports she had another poor night due to severe coughing the coughing comes in waves and during episodes she feels very short of breath appetite fair at best cough is mainly dry; no hemoptysis she is dyspneic with minimal activity; just moving around in the bed causes such she is very anxious due to not having a diagnosis and over-arching plan of care sister was at bedside today -- questions answered we discussed blood transfusion; consent process completed, paper consent signed Review of Systems Review of Systems: gen - no fevers cv - no chest pain but tightness/congestion are present pulm - cough/wheezing/dyspnea GI - no abd pain, N/V Physical Exam Physical Exam: gen - coughing, tachypneic and dyspneic with minimal activity, still a little confused; anxious at times mouth - minor ulcerations and erythema posterior palate improved today neck - no obvious JVD heart - tachy, s1 s2, no murmur lungs - wheezing b/l, worse on left - scantly better than yesterday; significantly decreased BS right lung about 1/2-2/[address] up back; tachypnea, coughing; course BS b/l abd - soft NT ND BS+; no HSM ext - no edema, pulses 2+ b/l skin - VATs incision on right chest clean and well-healed; former chest tube sites x 2 on right covered w/ dressings; these were removed; both sites closed; I replaced the dressings on these 2 sites; former IR biopsy site on left chest clean & covered with dressing -- I removed this dressing and biopsy site is healed/closed; placed optifoam on this site psych - minimal amount of confusion, anxious Results & Data Results & Data Vital Signs (Past 12 Hours) Vital Signs Temp Pulse Resp BP Pulse Ox O2 Del Method O2 Flow Rate 01/16/24 11:42 36.9 C 95 H 19 146/60 H 96 Nasal Cannula 2.0 01/16/24 08:04 36.9 C 97 H 19 122/61 96 Nasal Cannula 2.0 01/16/24 07:47 Nasal Cannula 3 01/16/24 07:22 92 H 24 96 Nasal Cannula 2 01/16/24 03:18 37.3 C 92 H 18 139/66 96 Nasal Cannula 2 01/16/24 00:00 85 19 97 Nasal Cannula 2 Laboratory Results Laboratory Results - last 24 hr 01/15/24 01/15/24 01/15/24 07:35 14:13 17:34 WBC RBC Hgb Hct MCV MCH MCHC RDW Std Deviation RDW Coeff of Marcos Plt Count MPV Absolute Nucleated RBC Nucleated RBC % (auto) Sodium Potassium Chloride Carbon Dioxide Anion Gap BUN Creatinine Est Cr Clr Drug Dosing Est GFR ( Amer) Est GFR (Non-Af Amer) BUN/Creatinine Ratio Glucose POC Glucose 159 H Estimat Average Glucose Hemoglobin A1c Calcium Iron TIBC Unsaturated IBC Transferrin % Sat Ferritin Troponin I High Sens Vitamin B12 Folate Nasal Screen MRSA (PCR) Negative Hepatitis C Ab (EIA) Pending 01/15/24 01/16/24 01/16/24 19:33 06:14 07:14 WBC 17.22 H RBC 2.27 L Hgb 6.8 L* Hct 22.3 L MCV 98.2 MCH 30.0 MCHC 30.5 L RDW Std Deviation 50.6 H RDW Coeff of Marcos 14.7 H Plt Count 432 H MPV 9.9 Absolute Nucleated RBC 0.03 Nucleated RBC % (auto) 0.2 Sodium 138 Potassium 4.1 Chloride 104 Carbon Dioxide 24 Anion Gap 10 BUN 30 H Creatinine 1.19 Est Cr Clr Drug Dosing 52.6 Est GFR ( Amer) 55.1 Est GFR (Non-Af Amer) 47.5 BUN/Creatinine Ratio 25.2 H Glucose 100 H POC Glucose 143 H 113 H Estimat Average Glucose 123 Hemoglobin A1c 5.9 H Calcium 8.1 L Iron 46 TIBC 170 L Unsaturated IBC 124 L Transferrin % Sat 27 Ferritin 1797.0 H Troponin I High Sens 14.6 H Vitamin B12 473 Folate 12.69 Nasal Screen MRSA (PCR) Hepatitis C Ab (EIA) 01/16/24 11:14 WBC RBC Hgb Hct MCV MCH MCHC RDW Std Deviation RDW Coeff of Marcos Plt Count MPV Absolute Nucleated RBC Nucleated RBC % (auto) Sodium Potassium Chloride Carbon Dioxide Anion Gap BUN Creatinine Est Cr Clr Drug Dosing Est GFR ( Amer) Est GFR (Non-Af Amer) BUN/Creatinine Ratio Glucose POC Glucose 119 H Estimat Average Glucose Hemoglobin A1c Calcium Iron TIBC Unsaturated IBC Transferrin % Sat Ferritin Troponin I High Sens Vitamin B12 Folate Nasal Screen MRSA (PCR) Hepatitis C Ab (EIA) PG Care Time/CCT Total # of Minutes Spent Total Time Spent with Patient: Total time spent is greater than 50% in coordination of care (as documented) at patient's floor/unit and/or counseling patient: Coding Level of Care Code 04023 SUB INP/OBS CARE 3/50MIN Diagnoses Acute hypoxic respiratory failure J96.01 RSV (respiratory syncytial virus infection) B33.8 Asthma with exacerbation J45.901 Right lower lobe lung mass R91.8 Anemia D64.9 Prediabetes R73.03 Multiple pulmonary nodules R91.8 Pleural effusion J90 Hypertension I10 Acute metabolic encephalopathy G93.41 DVT prophylaxis Z29.9 STEWART (acute kidney injury) N17.9 Anxiety F41.9 Ovarian cyst N83.209 Candidiasis of mouth and esophagus B37.81; B37.0
[2024-01-16] MEDS ORDERED: SODIUM CHLORIDE 0.9% 250 ML IV PRN (12:56)
[2024-01-16] MEDS: FUROSEMIDE INJ 20 MG/2 ML VIAL IV ONE (14:54)
[2024-01-16] MEDS: ACETAMINOPHEN 500 MG TAB PO SCH (14:57)
[2024-01-16] MEDS: HYDROcodone/HOMATROPINE SYRUP 5MG/1.5MG 5ML UDP PO PRN (14:58)
--- NOTE | 2024-01-16 15:55 | Oncology Consultation ---
Date of Consultation January 16, 2024 Assessment & Plan (1) Multiple pulmonary nodules: At this point we have done extensive workup and evaluation and we also reviewed the workup done in [facility]. Cytology from [facility] is still pending. I will wait for the results of the cytology from [facility] for further recommendations. If that cytology is negative I would recommend a PET CT scan and directed biopsy based on PET scan. I discussed this with our hospital internal medicine colleagues, Dr. Jauregui, there may be some challenges in obtaining a PET CT scan including logistical and financial challenges, however I will attempt a biopsy based on the results of the PET CT scan. Once I have a biopsy-proven diagnosis I will have further oncological recommendations. My other concern is that the patient has an undiagnosed GI malignancy especially the fact that she also has multiple intra-abdominal lymph nodes and has iron deficiency anemia. Is possible the patient should undergo GI evaluation including upper GI endoscopy, however given the current tenuous clinical status of the patient it may be hard to obtain an upper GI endoscopy. (2) Pleural effusion: Reviewed the previously done CT and current CT, the patient had loculated pleural effusions. Drainage per symptoms as well as our pulmonary medicine colleagues. There could be a concern for an underlying empyema/hemothorax/concerns for a pleural-based malignancy such as mesothelioma. However I would not be sure until mental biopsy-proven diagnosis. Plan Medical oncology will continue to follow the patient and make appropriate recommendations. Thank you for this interesting oncological consult History of Present Illness Reason for Consultation: ? Concerns for underlying malignancy Attending Physician: Wilfredo Jauregui MD History of Present Illness The patient is a very pleasant 68-year-old woman currently in isolation because of RSV infection, has a past history of asthma, hypertension, CKD who was previously hospitalized at [facility] subsequently was in [facility], there are concerns for underlying malignancy. Previously she had a CT scan of the chest which revealed a 7.3 cm right lower lobe mass with invasion of the pleura. Right pleural effusion was present. Our IR department to attempted biopsy, only 10 mm of fluid was removed. Subsequently underwent pulmonary evaluation with bronchoscopy and EBUS and the right hilar mass was deemed to be very vascular. Subsequently was evaluated at [facility] and underwent VATS procedure. Cytology from that procedure is still pending. Medical oncology has been consulted to assist in management of this patient with possible underlying right lung malignancy. She had a recent CT angiogram performed on 01/15/2024 which revealed partially loculated moderate-sized right pleural effusion with greater than left pleural-based mass. Several pulmonary nodules. There was g generalized lymphadenopathy which is also present in the gastrohepatic area as well as subcarinal area. The patient herself is short of breath, currently has nasal cannula for oxygen. Allergies Allergy/AdvReac Type Severity Reaction Status Date / Time Penicillins Allergy Unknown STRONG Verified 12/27/23 19:23 FAMILY HX-NEVER USED. 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 "zipper repairer" Verified 12/27/23 21:06 and "scented soap" - unknown rxn Home Medications Medication Instructions Recorded Confirmed Type acetaminophen 650 mg 0 mg PO DIRECTED PRN Pain 06/22/19 01/15/24 History tablet,extended release (Tylenol Arthritis Pain) fenofibrate micronized 43 mg 43 mg PO DAILY #90 caps 07/13/23 01/15/24 Rx capsule rosuvastatin 40 mg tablet 40 mg PO DAILY #90 tabs 07/13/23 01/15/24 Rx albuterol sulfate 90 mcg/actuation 1 puff inhalation Q6H PRN SOB #8.5 09/29/23 01/15/24 Rx aerosol inhaler (ProAir HFA) grams empagliflozin 10 mg tablet 10 mg PO DAILY #30 tabs 10/30/23 01/15/24 Rx (Jardiance) fluticasone propionate 44 0 puff inhalation BID 12/27/23 01/15/24 History mcg/actuation HFA aerosol inhaler lisinopril 10 0 tab PO DAILY 12/27/23 01/15/24 History mg-hydrochlorothiazide 12.5 mg tablet metformin 500 mg tablet 500 mg PO DAILY #90 tabs 01/04/24 01/15/24 Rx Patient History Medical History (Updated 01/16/24 @ 05:44 by Wilfredo Jauregui MD) STEWART (acute kidney injury) Pleural effusion RIGHT, suspected malignant - Multiple pulmonary nodules Psoriasis Prediabetes Ureterolithiasis Pneumonia Hidradenitis suppurativa of left axilla Hypertension Arthritis Asthma stable Obesity Encephalitis at age 9, 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 History of incision and drainage incision and drainage of left axillary abscess Dr. Gil 12/04/20 +MRSA History of difficult intubation cystoscopy, right ureteroscopy, stent placement: 06/22/19: Elective glidescope #3 grade view 1 at [facility] History of tonsillectomy History of lithotripsy History of cystoscopy with stent History of foot surgery Right H/O knee surgery Bilateral History of ankle surgery Left Family History Father Hypertension Hx of CABG Sister Hypertension Colorectal cancer Mother Colorectal cancer Stroke Aunt Myocardial infarction maternal Denies family history of Ovarian cancer Prostate cancer Breast cancer Social History (Updated 01/15/24 @ 10:16 by Wilfredo Jauregui MD) Smoking Status: Never smoker Second Hand Exposure: No; Do You Dip or Chew Tobacco: No; Hx Alcohol Use: No Hx Substance Use: No Preferred Language: [place] Communication Ability: Effective Visual Impairment: No Limitations Nursing Unit Clerk Required: No Beliefs That Will Affect Care: None marital status: Single Current Living Situation: Family Current Living Situation Comment: Lives with sister. 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al status: retired 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: worked in [employer]'s office at [employer] How many Children do You have: 0 Feels Safe at Home: Yes Childhood Exposure to Second-Hand Smoke: No Diet: regular caffeine: Yes (1 cup of tea approx 2x a week) Dental Care, Regularly: Yes Physical Activity Frequency: Daily Physical Activity Frequency Comment: walk Seatbelt Use: always Sunscreen Use: Yes Assistive Devices: Glasses and Walker Review of Systems Review of Systems: Dyspnea, shortness of breath, occasional cough Constitutional: as per Subjective / HPI Eyes: as per Subjective / HPI Ear, Nose, Mouth, Throat: as per Subjective / HPI Respiratory: as per Subjective / HPI Cardiovascular: as per Subjective / HPI Gastrointestinal: as per Subjective / HPI Genitourinary: as per Subjective / HPI Musculoskeletal: as per Subjective / HPI Integumentary: as per Subjective / HPI Neurologic: as per Subjective / HPI Results & Data Vital Signs (Past 12 Hours) Vital Signs Temp Pulse Resp BP Pulse Ox O2 Del Method O2 Flow Rate 01/16/24 15:41 37.1 C 87 19 121/61 95 Nasal Cannula 2.0 01/16/24 13:46 101 H 22 94 Nasal Cannula 2 01/16/24 11:42 36.9 C 95 H 19 146/60 H 96 Nasal Cannula 2.0 01/16/24 08:04 36.9 C 97 H 19 122/61 96 Nasal Cannula 2.0 01/16/24 07:47 Nasal Cannula 3 01/16/24 07:22 92 H 24 96 Nasal Cannula 2
--- NOTE | 2024-01-16 16:48 | Electrocardiogram Report ---
Test Reason : Blood Pressure : / mmHG Vent. Rate : 104 BPM Atrial Rate : 104 BPM P-R Int : 164 ms QRS Dur : 080 ms QT Int : 348 ms P-R-T Axes : 063 -13 024 degrees QTc Int : 457 ms Sinus tachycardia Possible Old Anteroseptal infarct (cited on or before 27-DEC-2023) Diffuse Minor Nonspecific T wave abnormality Abnormal ECG When compared with ECG of 27-DEC-2023 16:11, QRS axis Shifted right T wave amplitude has decreased in Lateral leads Confirmed by Shorty Martinez ([id number]) on 01/16/2024 4:47:47 PM Referred By: REFERRED SELF Confirmed By:Shorty Martienz
[2024-01-16] MEDS: CEFEPIME 2,000 MG in SYRINGE 0 ML IV SCH (17:21)
[2024-01-16] MEDS: LORazepam 0.5 MG TAB PO STA (17:34)
[2024-01-17 06:29] LABS: Hematocrit (blood only) 26.5 % (37.0-47.0); Hemoglobin 8.3 g/dl (12.0-16.0); Mean Corpuscular Hemoglobin 30.2 pg (25.0-34.0); Mean Corpuscular Hgb Conc 31.3 g/dL (32.0-36.0); Mean Corpuscular Volume 96.4 fL (80.0-100.0); Mean Platelet Volume 8.6 fL (9.4-12.4); Nucleated RBC # (auto) 0.03 K/uL (0.00-0.12); Nucleated RBC % (auto) 0.2 %; Platelet Count 496 K/uL (130-400); RDW Coefficient of Variation 14.9 % (11.5-14.5); RDW Standard Deviation 50.6 fL (36.4-46.3); Red Blood Count 2.75 M/uL (4.20-5.40); White Blood Count 15.28 K/ul (4.8-10.8)
[2024-01-17 06:51] LABS: BUN Creatinine Ratio 24.4 (10-20); Calcium 8.1 mg/dl (8.6-10.3); Creatinine Clr Calc Pharmacy 47.7 ml/min; Est GFR (African American) 49.1 ml/min; Est GFR (Non-African American) 42.3 ml/min; Potassium 4.3 mmol/L (3.5-5.1)
[2024-01-17] MEDS: LORazepam 1 MG TAB SL PRN (10:38)
--- NOTE | 2024-01-17 17:12 | Hospitalist Progress Note ---
Date of Service January 17, 2024 Assessment & Plan (1) Acute hypoxic respiratory failure: Plan: 2nd to RSV infection in the setting of known asthma as well as right-sided pleural effusion, right-sided RLL lung mass, multiple b/l pulmonary nodules, right-sided atelectasis, etc. No complicating PE or CHF on CTA chest 01/15/24. Supportive care for RSV - xopenex/atrovent nebs, NC O2, tessalon, flutter valve, incentive spirometry, prednisone, etc. Adding hycodan in low-dose for cough. given the absence of wheezing good air movement and significant anxiety will decrease prednisone to 20 mg daily pulmonary consulted this admission, reviewed recommendations in note (2) RSV (respiratory syncytial virus infection): Plan: With resulting bronchitis/asthma exacerbation. see above continue tessalon, hycodan, flutter valve, IS increase mobility Procalcitonin slightly elevated, and there is dense consolidation on the chest CT in the RLL. could have superimposed RLL bacterial post-obstructive pneumonia. continue cefepime day 01/16 MRSA swab neg Blood cx's to date negative. Cont NC O2 to maintain O2 sats >92%. (3) Asthma with exacerbation: Plan: Prior history of asthma - dx 10+ years ago. -see above (4) Right lower lobe lung mass: Plan: Dx 12/2023 hospitalization at [facility]. High likelihood for an aggressive malignancy but all biopsies from EBUS done at [facility] in 12/2023 are negative. Only exception is that of 2 lymph nodes with atypical cells concerning for malignancy but o/w could not make a formal diagnosis. Per d/c summary from [facility] hospitalization -- all biopsies from right- sided VATS were negative. Thus, underwent IR guided biopsy at [facility] done (biopsy is on left chest -- per patient lung nodule was biopsied). -follow up path report, not available 01/15 Heme/onc Dr. Kulkarni consulted - reviewed recs in note (5) Anemia: Plan: I obtained a d/c summary from [facility] from her stay from December to January 12. On 01/12 her hemoglobin was about 7.5. Hemoglobin here on 01/14 was 7.6. Her sister reports she received IV iron while in [place]. Fe studies, B12, and folate all satisfactory (ferritin markedly high due to acute phase). Transfused 1 unit 3/4 for Hgb 7, increased to 8.3. Obtain a fecal occult - not collected (6) Prediabetes: Plan: Hba1c 5.9%. BSGs ac/hs. DM diet. Add novolog SSI if necessary. -BG at goal (7) Multiple pulmonary nodules: Plan: as seen on serial CT chest. highly worrisome for aggressive malignancy as multiple nodules have increased in size in just a 2-3 week time frame. atypical infection theoretically possible but highly unlikely. all bronch cultures from 12/2023 at [facility] were negative except for duane which likely does not require Rx. (8) Pleural effusion: Plan: right-sided, moderate-large. cell counts from thoracentesis in December at [facility] c/w exudative effusion. presumed malignant in etiology. a large component of this effusion is bloody (RBCs on that thoracentesis were markedly elevated). s/p VATS procedure at [facility] in late December. by report biopsies from the VATS were negative/non-diagnostic. on CT chest done 01/14 her effusion is at least moderate in size. Dr Oscar from pulmonary consulted. Appreciate his consult. No plans for thoracentesis at this time. (9) Hypertension: Plan: lisinopril-HCTZ are both on hold at this time. BPs acceptable off of it. (10) Acute metabolic encephalopathy: Plan: 2nd to #1, #2. supportive care. -seems resolved (11) STEWART (acute kidney injury): Plan: peak Cr 2.4 in mid-December at [facility]. likely pre-renal at that time. resolved - Cr again today wnl at 1.1. repeat BMP in am tomorrow for stability. (12) Anxiety: Plan: associated with dyspnea -oral dose prn was effective today (13) Ovarian cyst: Plan: 4.3cm cyst vs mass on right ovary this was seen on 12/28/23 CT a/p the features of her chest pathology would be very atypical for ovarian ca doubt ovarian ca (14) Candidiasis of mouth and esophagus: Plan: improved cont nystatin tameka - 5cc ac/hs - swish & spit Plan Lives with sister, required walker since discharge from [place], has not been OOB -PT/OT/chair DVT ppx: ordered daily enoxaparin. high risk if malignancy Admission and Anticipated Discharge Date Admission Date: January 15, 2024 Subjective Had an episode of increased dyspnea this AM with acute anxiety, since resolved Cough persists. No chest pain. Has not really been OOB Physical Exam 2 Physical Exam: PHYSICAL EXAMINATION Last 24h vital signs reviewed, see documentation in flowsheet General: comfortable appearing, no distress HEENT: Normocephalic, atraumatic, pupils round and equal, sclerae anicteric, no conjunctival injection, moist mucus membranes Lungs: Normal respiratory effort. clear anteriorly coarse breath sounds scattered throughout all kennedy posteriorly no wheezing good air movement. VATS incision right chest below the incision axilla healing well well opposed no erythema no drainage Heart: Regular rate and rhythm, no murmurs. No JVD Abdomen: Soft, nontender, nondistended. Bowel sounds present. Extremities: Warm, dry, well-perfused. No extremity edema. Neuro: Alert and oriented x 4, face symmetric, moves 4 extremities well Psych: anxiousl affect and behavior Results & Data Results & Data Vital Signs (Past 12 Hours) Vital Signs Temp Pulse Pulse Resp BP Pulse Ox O2 Del Method 01/17/24 15:27 36.7 C 86 19 120/69 95 Nasal Cannula 01/17/24 12:58 89 18 96 Nasal Cannula 01/17/24 11:04 96 H 01/17/24 10:59 36.5 C 62 18 110/66 99 Room Air 01/17/24 08:07 36.7 C 101 H 17 116/48 L 95 Nasal Cannula 01/17/24 08:00 Nasal Cannula 01/17/24 07:00 89 18 96 Nasal Cannula O2 Flow Rate 01/17/24 15:27 01/17/24 12:58 2 01/17/24 11:04 01/17/24 10:59 01/17/24 08:07 2 01/17/24 08:00 3 01/17/24 07:00 2 Laboratory Results 01/17/24 05:59 01/17/24 05:59 PG Care Time/CCT Total # of Minutes Spent Total Time Spent with Patient: Total time spent is greater than 50% in coordination of care (as documented) at patient's floor/unit and/or counseling patient: Coding Level of Care Code 34402 SUB INP/OBS CARE 2/35MIN Diagnoses Acute hypoxic respiratory failure J96.01 RSV (respiratory syncytial virus infection) B33.8 Asthma with exacerbation J45.901 Right lower lobe lung mass R91.8 Anemia D64.9 Prediabetes R73.03 Multiple pulmonary nodules R91.8 Pleural effusion J90 Hypertension I10 Acute metabolic encephalopathy G93.41 STEWART (acute kidney injury) N17.9 Anxiety F41.9 Ovarian cyst N83.209 Candidiasis of mouth and esophagus B37.81; B37.0
[2024-01-17] MEDS: ENOXAPARIN INJ 40 MG/0.4 ML SYR SQ SCH (19:19)
[2024-01-18] MEDS: predniSONE 20 MG TAB PO SCH (09:28)
--- NOTE | 2024-01-18 17:22 | Hospitalist Progress Note ---
Date of Service January 18, 2024 Assessment & Plan (1) Acute hypoxic respiratory failure: Plan: 2nd to RSV infection in the setting of known asthma as well as right-sided pleural effusion, right-sided RLL lung mass, multiple b/l pulmonary nodules, right-sided atelectasis, etc. No complicating PE or CHF on CTA chest 01/15/24. Supportive care for RSV - xopenex/atrovent nebs, NC O2, tessalon, flutter valve, incentive spirometry, prednisone, etc. cont hycodan for cough given the absence of wheezing good air movement and significant anxiety reduced prednisone to 20 mg daily starting 01/17 pulmonary consulted this admission, reviewed recommendations in note -slowly improving -has home O2 set up from recent discharge from [facility] (2) RSV (respiratory syncytial virus infection): Plan: With resulting bronchitis/asthma exacerbation. see above continue tessalon, hycodan, flutter valve, IS increase mobility -PT/OT ordered Procalcitonin slightly elevated, and there is dense consolidation on the chest CT in the RLL. could have superimposed RLL bacterial post-obstructive pneumonia. continue cefepime day 4 MRSA swab neg Blood cx's to date negative. Cont NC O2 to maintain O2 sats >92%. (3) Asthma with exacerbation: Plan: Prior history of asthma - dx 10+ years ago. -see above (4) Right lower lobe lung mass: Plan: Dx 12/2023 hospitalization at [facility]. High likelihood for an aggressive malignancy but all biopsies from EBUS done at [facility] in 12/2023 are negative. Only exception is that of 2 lymph nodes with atypical cells concerning for malignancy but o/w could not make a formal diagnosis. Per d/c summary from [facility] hospitalization -- all biopsies from right- sided VATS were negative. Thus, underwent IR guided biopsy at [facility] done (biopsy is on left chest -- per patient lung nodule was biopsied). -follow up path report, not available 01/17 still pending Heme/onc Dr. Kulkarni consulted - reviewed recs in note (5) Anemia: Plan: I obtained a d/c summary from [facility] from her stay from December to January 12. On 01/12 her hemoglobin was about 7.5. Hemoglobin here on 01/14 was 7.6. Her sister reports she received IV iron while in [place]. Fe studies, B12, and folate all satisfactory (ferritin markedly high due to acute phase). Transfused 1 unit 3/4 for Hgb 7, increased to 8.3. Obtain a fecal occult - not collected -AM CBC (6) Prediabetes: Plan: Hba1c 5.9%. BSGs ac/hs. DM diet. Add novolog SSI if necessary. -BG at goal (7) Multiple pulmonary nodules: Plan: as seen on serial CT chest. highly worrisome for aggressive malignancy as multiple nodules have increased in size in just a 2-3 week time frame. atypical infection theoretically possible but highly unlikely. all bronch cultures from 12/2023 at [facility] were negative except for duane which likely does not require Rx. (8) Pleural effusion: Plan: right-sided, moderate-large. cell counts from thoracentesis in December at [facility] c/w exudative effusion. presumed malignant in etiology. a large component of this effusion is bloody (RBCs on that thoracentesis were markedly elevated). s/p VATS procedure at [facility] in late December. by report biopsies from the VATS were negative/non-diagnostic. on CT chest done 3/ her effusion is at least moderate in size. Dr Oscar from pulmonary consulted. Appreciate his consult. No plans for thoracentesis at this time. (9) Hypertension: Plan: lisinopril-HCTZ are both on hold at this time. BPs acceptable off of it. (10) Acute metabolic encephalopathy: Plan: 2nd to #1, #2. supportive care. -seems resolved (11) STEWART (acute kidney injury): Plan: peak Cr 2.4 in mid-December at [facility]. likely pre-renal at that time. 1.3 on 3/5 repeat BMP in am (12) Anxiety: Plan: associated with dyspnea -oral dose prn was effective 3/5 -no episodes today (13) Ovarian cyst: Plan: 4.3cm cyst vs mass on right ovary this was seen on 12/28/23 CT a/p the features of her chest pathology would be very atypical for ovarian ca (14) Candidiasis of mouth and esophagus: Plan: improved cont nystatin tameka - 5cc ac/hs - swish & spit Plan Lives with sister, required walker since discharge from [place], has not been OOB -PT/OT/chair -ambulated only 8 feet with PT /, recommended short term rehab stay DVT ppx: ordered daily enoxaparin. Admission and Anticipated Discharge Date Admission Date: January 15, 2024 Subjective Shortness of breath and cough improved PT was here, very weak, perhaps stood but did not walk Anxiety improved, no acute anxiety/dyspnea episodes since yesterday AM Physical Exam 2 Physical Exam: PHYSICAL EXAMINATION Last 24h vital signs reviewed, see documentation in flowsheet General: comfortable appearing, no distress, sitting in bed on neb HEENT: Normocephalic, atraumatic, pupils round and equal, sclerae anicteric, no conjunctival injection, moist mucus membranes Lungs: Normal respiratory effort. coarse breath sounds post giancarlo no wheezing good air mvt VATS incision right chest below the incision axilla examined Heart: Regular rate and rhythm, no murmurs. No JVD Abdomen: Soft, nontender, nondistended. Bowel sounds present. Extremities: Warm, dry, well-perfused. No extremity edema. Neuro: Alert and oriented x 4, face symmetric, moves 4 extremities well Psych: normal affect and behavior Results & Data Results & Data Vital Signs (Past 12 Hours) Vital Signs Temp Pulse Pulse Resp BP Pulse Ox O2 Del Method 01/18/24 15:08 36.8 C 85 20 139/65 95 Nasal Cannula 01/18/24 13:21 90 20 94 Nasal Cannula 01/18/24 10:51 37.2 C 88 23 123/61 95 Nasal Cannula 01/18/24 08:00 73 01/18/24 08:00 Nasal Cannula 01/18/24 07:43 37.0 C 100 H 22 137/69 94 Nasal Cannula 01/18/24 07:19 87 19 95 Nasal Cannula O2 Flow Rate 01/18/24 15:08 3 01/18/24 13:21 3 01/18/24 10:51 3 01/18/24 08:00 01/18/24 08:00 4 01/18/24 07:43 2 01/18/24 07:19 2 Laboratory Results 01/17/24 05:59 01/17/24 05:59 PG Care Time/CCT Total # of Minutes Spent Total Time Spent with Patient: Total time spent is greater than 50% in coordination of care (as documented) at patient's floor/unit and/or counseling patient: Coding Level of Care Code 13051 SUB INP/OBS CARE 2/35MIN Diagnoses Acute hypoxic respiratory failure J96.01 RSV (respiratory syncytial virus infection) B33.8 Asthma with exacerbation J45.901 Right lower lobe lung mass R91.8 Anemia D64.9 Prediabetes R73.03 Multiple pulmonary nodules R91.8 Pleural effusion J90 Hypertension I10 Acute metabolic encephalopathy G93.41 STEWART (acute kidney injury) N17.9 Anxiety F41.9 Ovarian cyst N83.209 Candidiasis of mouth and esophagus B37.81; B37.0
[2024-01-19 06:54] LABS: Hematocrit (blood only) 26.6 % (37.0-47.0); Hemoglobin 8.4 g/dl (12.0-16.0); Mean Corpuscular Hemoglobin 30.4 pg (25.0-34.0); Mean Corpuscular Hgb Conc 31.6 g/dL (32.0-36.0); Mean Corpuscular Volume 96.4 fL (80.0-100.0); Mean Platelet Volume 8.6 fL (9.4-12.4); Nucleated RBC # (auto) 0.03 K/uL (0.00-0.12); Nucleated RBC % (auto) 0.2 %; Platelet Count 557 K/uL (130-400); RDW Coefficient of Variation 15.1 % (11.5-14.5); Red Blood Count 2.76 M/uL (4.20-5.40); White Blood Count 13.72 K/ul (4.8-10.8)
[2024-01-19 07:21] LABS: BUN Creatinine Ratio 27.9 (10-20); Calcium 8.3 mg/dl (8.6-10.3); Creatinine Clr Calc Pharmacy 51.2 ml/min; Est GFR (African American) 53.5 ml/min; Est GFR (Non-African American) 46.1 ml/min; Potassium 4.2 mmol/L (3.5-5.1)
[2024-01-19] MEDS: SODIUM CHLORIDE 0.65% NA SOLN 45 ML (OCEAN) ONE (08:58)
--- NOTE | 2024-01-19 12:05 | Hematology/Oncology Prog Note ---
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 Explained to the patient that spindle cell carcinoma is a generally aggressive cancers and in her situation surgical resection is impossible due to widespread presence and presence of lymphadenopathy within the chest as well as abdomen pelvis. Explained the poor prognosis of this particular malignancy especially in her presentation. Counseled her that the only way to deal with this malignancy is palliative systemic chemotherapy at this stage. The patient explained to me that she will want to fight this cancer. Keeping this in mind I called Dr. Antonina Santoyo MD to facilitate placement of a Mediport device so that we can give her chemotherapy once she is discharged. Medical oncology will continue to follow the patient while she is in the hospital and make appropriate recommendations. We will arrange for palliative systemic chemotherapy which will be based on Adriamycin on an outpatient basis. Plan Thank you for this interesting oncological consult. A total of 60 minutes was spent in counseling, coordination of care and review of prior records. Admission and Anticipated Discharge Date Admission Date: January 15, 2024 Subjective Patient still occasionally short of breath. However she was able to walk to the commode. Reports no other symptoms today. Review of Systems Review of Systems: All systems reviewed & are unremarkable except as noted in HPI & below Weakness, fatigue, dyspnea on exertion Physical Exam Constitutional: WD/WN, vitals as above Eyes: PERRL, conjunctivae normal, anicteric sclerae ENMT: external ear and nose normal, oropharynx normal Neck: trachea midline, no thyromegaly Respiratory: normal respiratory effort, lungs clear to auscultation Cardiovascular: RRR, no murmur, no edema Gastrointestinal (Abdomen): normal bowel sounds, soft, nontender, no hepatosplenomegaly Skin: no rashes, warm and dry Results & Data Vital Signs (Past 12 Hours) Vital Signs Temp Pulse Pulse Resp BP Pulse Ox O2 Del Method 01/19/24 11:42 36.9 C 101 H 20 136/72 94 Nasal Cannula 01/19/24 09:35 Nasal Cannula 01/19/24 07:50 37.1 C 97 H 20 154/65 H 95 Nasal Cannula 01/19/24 07:24 90 20 94 Nasal Cannula 01/19/24 02:46 36.8 C 80 18 128/61 96 Nasal Cannula 01/19/24 01:41 70 01/19/24 00:35 77 22 97 Nasal Cannula O2 Flow Rate 01/19/24 11:42 2 01/19/24 09:35 2 01/19/24 07:50 2 01/19/24 07:24 2 01/19/24 02:46 01/19/24 01:41 01/19/24 00:35 2
--- NOTE | 2024-01-19 19:57 | Hospitalist Progress Note ---
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 Underwent extensive evaluation including bronchoscopy with EBUS, VATS nondiagnostic, finally confirmed on biopsy of JUAN nodule done at [facility] . Discussed with Dr. Kulkarni - overall this is a poor prognosis and not surgically resectable, plans palliative chemotherapy -consulted Dr. Dorman general surgery - scheduling for port placement as outpatient 01/24 -follow up with Dr. Kulkarni after that to start systemic chemotherapy (2) Acute hypoxic respiratory failure: Plan: 2nd to RSV infection in the setting of known asthma as well as right-sided pleural effusion, right-sided RLL lung mass, multiple b/l pulmonary nodules, right-sided atelectasis, etc. No complicating PE or CHF on CTA chest 01/15/24. Supportive care for RSV - xopenex/atrovent nebs, NC O2, tessalon, flutter valve, incentive spirometry, prednisone, etc. cont hycodan for cough -slowly improving - lung exam clearing as of 01/18 -has home O2 set up (3) RSV (respiratory syncytial virus infection): Plan: With resulting bronchitis/asthma exacerbation. see above continue tessalon, hycodan, flutter valve, IS increase mobility -PT/OT ordered Procalcitonin slightly elevated, and there is dense consolidation on the chest CT in the RLL. could have superimposed RLL bacterial post-obstructive pneumonia. continue cefepime day 55 MRSA swab neg Blood cx's to date negative. Cont NC O2 to maintain O2 sats >92%. (4) Asthma with exacerbation: Plan: Prior history of asthma - dx 10+ years ago. -see above (5) Right lower lobe lung mass: (6) Anemia: Plan: I obtained a d/c summary from [facility] from her stay from December to January 12. On 01/12 her hemoglobin was about 7.5. Hemoglobin here on 01/14 was 7.6. Her sister reports she received IV iron while in [place]. Fe studies, B12, and folate all satisfactory (ferritin markedly high due to acute phase). Transfused 1 unit 01/15 for Hgb 7, increased to 8.3. -CBC stable today (7) Prediabetes: Plan: Hba1c 5.9%. BSGs ac/hs. DM diet. Add novolog SSI if necessary. -BG at goal (8) Multiple pulmonary nodules: Plan: related to spindle cell carcinoma all bronch cultures from 12/2023 at [facility] were negative except for duane which likely does not require Rx. 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 cell counts from thoracentesis in December at [facility] c/w exudative effusion. Dr Oscar from pulmonary consulted. Appreciate his consult. No plans for thoracentesis at this time. (10) Hypertension: Plan: lisinopril-HCTZ are both on hold at this time. BPs acceptable off of it. (11) Acute metabolic encephalopathy: Plan: 2nd to #1, #2. supportive care. -seems resolved (12) STEWART (acute kidney injury): Plan: peak Cr 2.4 in mid-December at [facility]. likely pre-renal at that time. 1.2 on 01/18 (13) Anxiety: Plan: associated with dyspnea -oral dose prn has been effective (14) Ovarian cyst: Plan: 4.3cm cyst vs mass on right ovary this was seen on 12/28/23 CT a/p the features of her chest pathology would be very atypical for ovarian ca (15) Candidiasis of mouth and esophagus: Plan: improved cont nystatin tameka - 5cc ac/hs - swish & spit Plan Lives with sister, required walker since discharge from [place] -PT/OT/chair -ambulated only 8 feet with PT 01/17, recommended short term rehab stay - discussed with [place] (and her sister) and she declines rehab, plans home with and another sister flying in this week to help out. On one level with 1 SHAHZAD. DVT ppx: daily enoxaparin. Admission and Anticipated Discharge Date Admission Date: January 15, 2024 Subjective weak, Potts persists, cough persists. dyspnea somewhat improved Physical Exam 2 Physical Exam: PHYSICAL EXAMINATION Last 24h vital signs reviewed, see documentation in flowsheet General: comfortable appearing, no distress, lying in bedb HEENT: Normocephalic, atraumatic, pupils round and equal, sclerae anicteric, no conjunctival injection, moist mucus membranes Lungs: Normal respiratory effort. much clearer, scattered coarse giancarlo no wheezing good air mvt VATS incision right chest below the incision axilla examined Heart: Regular rate and rhythm, no murmurs. No JVD Abdomen: Soft, nontender, nondistended. Bowel sounds present. Extremities: Warm, dry, well-perfused. No extremity edema. Neuro: Alert and oriented x 4, face symmetric, moves 4 extremities well Psych: normal affect and behavior Results & Data Results & Data Vital Signs (Past 12 Hours) Vital Signs Temp Pulse Resp BP Pulse Ox O2 Del Method O2 Flow Rate 01/19/24 19:24 37 C 98 H 18 131/75 95 Nasal Cannula 2 01/19/24 18:18 102 H 21 94 Nasal Cannula 2 01/19/24 15:31 37.1 C 88 20 149/72 H 96 Nasal Cannula 2 01/19/24 13:23 100 H 33 H 98 Nasal Cannula 2 01/19/24 11:42 36.9 C 101 H 20 136/72 94 Nasal Cannula 2 01/19/24 09:35 Nasal Cannula 2 01/19/24 07:50 37.1 C 97 H 20 154/65 H 95 Nasal Cannula 2 Laboratory Results 01/19/24 06:17 01/19/24 06:17 PG Care Time/CCT Total # of Minutes Spent Total Time Spent with Patient: I spent 55 minutes today reviewing labs/vitals, examining and counseling patient and her sister, discussion with oncologist and general surgeon discussion with bedside RN and care coordinatior Coding Level of Care Code 83621 SUB INP/OBS CARE 3/50MIN Diagnoses Spindle cell carcinoma of thorax C76.1 Acute hypoxic respiratory failure J96.01 RSV (respiratory syncytial virus infection) B33.8 Asthma with exacerbation J45.901 Right lower lobe lung mass R91.8 Anemia D64.9 Prediabetes R73.03 Multiple pulmonary nodules R91.8 Pleural effusion J90 Hypertension I10 Acute metabolic encephalopathy G93.41 STEWART (acute kidney injury) N17.9 Anxiety F41.9 Ovarian cyst N83.209 Candidiasis of mouth and esophagus B37.81; B37.0
[2024-01-19] MEDS: LORazepam 0.25 MG in SYRINGE 0.125 ML IV PRN (21:21)
[2024-01-20] MEDS: LISINOPRIL/HCTZ 10/12.5MG TAB PO SCH (08:58)
--- NOTE | 2024-01-20 11:25 | Communication Note ---
Date of Service: January 20, 2024 Consult for port placement. Our office scheduled patient for port placement at [facility] next Tuesday01/25/[address] Dorman. Surgery center will call patient on Tuesday to give time of arrival. Port placement reviewed with patient along with risks of procedure by Dr. Dorman. Will have patient sign consent for port placement day of surgery.
--- NOTE | 2024-01-20 15:37 | Hospitalist Progress Note ---
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 Underwent extensive evaluation including bronchoscopy with EBUS, VATS nondiagnostic, finally confirmed on biopsy of JUAN nodule done at [facility] . Consulted medical oncologist Dr. Kulkarni - overall this is a poor prognosis and not surgically resectable, plans palliative chemotherapy -consulted Dr. Dorman general surgery - scheduled for port placement as outpatient 01/24 -follow up with Dr. Kulkarni after that to start systemic chemotherapy (2) Acute hypoxic respiratory failure: Plan: 2nd to RSV infection in the setting of known asthma as well as right-sided pleural effusion, right-sided RLL lung mass, multiple b/l pulmonary nodules, right-sided atelectasis, etc. No complicating PE or CHF on CTA chest 01/15/24. Supportive care for RSV - xopenex/atrovent nebs, NC O2, tessalon, flutter valve, incentive spirometry, prednisone, etc. cont hycodan for cough -slowly improving - lung exam clearing as of 01/18 -working on mobility - now getting OOB to commode -has home O2 set up (3) RSV (respiratory syncytial virus infection): Plan: With resulting bronchitis/asthma exacerbation. see above Procalcitonin slightly elevated, and there is dense consolidation on the chest CT in the RLL. could have superimposed RLL bacterial post-obstructive pneumonia. completed 5 day course of cefepime MRSA swab neg Blood cx's negative. (4) Asthma with exacerbation: Plan: Prior history of asthma - dx 10+ years ago. -see above (5) Right lower lobe lung mass: (6) Anemia: Plan: I obtained a d/c summary from [facility] from her stay from December to January 12. On 01/12 her hemoglobin was about 7.5. Hemoglobin here on 01/14 was 7.6. Her sister reports she received IV iron while in [place]. Fe studies, B12, and folate all satisfactory (ferritin markedly high due to acute phase). Transfused 1 unit 3/ for Hgb 7, increased to 8.3. -CBC stable today Hg 8.4, leukocytosis related to steroids (7) Prediabetes: Plan: Hba1c 5.9%. BSGs ac/hs. DM diet. Add novolog SSI if necessary. -BG at goal (8) Multiple pulmonary nodules: Plan: related to spindle cell carcinoma all bronch cultures from 12/2023 at [facility] were negative except for duane which likely does not require Rx. 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 cell counts from thoracentesis in December at [facility] c/w exudative effusion. Dr Oscar from pulmonary consulted. Appreciate his consult. No plans for thoracentesis at this time. (10) Hypertension: Plan: lisinopril-HCTZ are both on hold at this time - BPs acceptable off of it. BP elevated today, discussed resumption but she would rather hold off because of current illness, recent STEWART, impending chemo, which is all reasonable. (11) Acute metabolic encephalopathy: Plan: 2nd to #1, #2. supportive care. -resolved (12) STEWART (acute kidney injury): Plan: peak Cr 2.4 in mid-December at [facility]. likely pre-renal at that time. 1.2 on 01/18, resolved (was 1.5 in 2021, 2022) (13) Anxiety: Plan: associated with dyspnea -oral dose prn has been effective (14) Ovarian cyst: Plan: 4.3cm cyst vs mass on right ovary this was seen on 12/28/23 CT a/p the features of her chest pathology would be very atypical for ovarian ca (15) Candidiasis of mouth and esophagus: Plan: improved cont nystatin tameka - 5cc ac/hs - swish & spit Plan Lives with sister, required walker since discharge from [place] -PT/OT/chair -ambulated only 8 feet with PT 01/17, recommended short term rehab stay - discussed with [place] (and her sister) and she declines rehab, plans home with and another sister flying in this week to help out. On one level with 1 SHAHZAD. DVT ppx: daily enoxaparin. Admission and Anticipated Discharge Date Admission Date: January 15, 2024 Subjective breathing slightly better, still lots of CALDERON, mobilizing more has been OOB to commode a few times Physical Exam 2 Physical Exam: PHYSICAL EXAMINATION Last 24h vital signs reviewed, see documentation in flowsheet General: comfortable appearing, no distress HEENT: Normocephalic, atraumatic, pupils round and equal, sclerae anicteric, no conjunctival injection, moist mucus membranes Lungs: Normal respiratory effort. much clearer, scattered coarse still but improved, giancarlo no wheezing good air mvt VATS incision right chest healing well Heart: Regular rate and rhythm, no murmurs. No JVD Abdomen: Soft, nontender, nondistended. Bowel sounds present. Extremities: Warm, dry, well-perfused. No extremity edema. Neuro: Alert and oriented x 4, face symmetric, moves 4 extremities well Psych: normal affect and behavior Results & Data Results & Data Vital Signs (Past 12 Hours) Vital Signs Temp Pulse Pulse Resp BP Pulse Ox O2 Del Method 01/20/24 15:25 37.1 C 96 H 18 159/70 H 95 Room Air 01/20/24 13:51 93 H 16 98 Nasal Cannula 01/20/24 10:45 Nasal Cannula 01/20/24 10:39 36.9 C 90 18 120/70 96 Nasal Cannula 01/20/24 08:30 Nasal Cannula 01/20/24 07:45 37.0 C 87 22 141/73 H 96 Nasal Cannula 01/20/24 07:16 83 24 99 Nasal Cannula 01/20/24 03:48 36.8 C 81 18 156/72 H 97 Nasal Cannula O2 Flow Rate 01/20/24 15:25 01/20/24 13:51 2 01/20/24 10:45 2 01/20/24 10:39 2 01/20/24 08:30 2 01/20/24 07:45 2 01/20/24 07:16 2 01/20/24 03:48 2 Laboratory Results 01/19/24 06:17 01/19/24 06:17 PG Care Time/CCT Total # of Minutes Spent Total Time Spent with Patient: Total time spent is greater than 50% in coordination of care (as documented) at patient's floor/unit and/or counseling patient: Coding Level of Care Code 71485 SUB INP/OBS CARE 2/35MIN Diagnoses Spindle cell carcinoma of thorax C76.1 Acute hypoxic respiratory failure J96.01 RSV (respiratory syncytial virus infection) B33.8 Asthma with exacerbation J45.901 Right lower lobe lung mass R91.8 Anemia D64.9 Prediabetes R73.03 Multiple pulmonary nodules R91.8 Pleural effusion J90 Hypertension I10 Acute metabolic encephalopathy G93.41 STEWART (acute kidney injury) N17.9 Anxiety F41.9 Ovarian cyst N83.209 Candidiasis of mouth and esophagus B37.81; B37.0
[2024-01-21] MEDS: LEVALBUTEROL 1.25 MG/3 ML NEB NEB SCH (07:09)
[2024-01-21] MEDS ORDERED: ALBUTEROL HFA 8 GM INHALER INH PRN (08:22)
--- NOTE | 2024-01-21 14:54 | Hospitalist Progress Note ---
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 Underwent extensive evaluation including bronchoscopy with EBUS, VATS nondiagnostic, finally confirmed on biopsy of JUAN nodule done at [facility] . Consulted medical oncologist Dr. Kulkarni - overall this is a poor prognosis and not surgically resectable, plans palliative chemotherapy -consulted Dr. Dorman general surgery - scheduled for port placement as outpatient 01/24 -follow up with Dr. Kulkarni after that to start systemic chemotherapy (2) Acute hypoxic respiratory failure: Plan: 2nd to RSV infection in the setting of known asthma as well as right-sided pleural effusion, right-sided RLL lung mass, multiple b/l pulmonary nodules, right-sided atelectasis, etc. No complicating PE or CHF on CTA chest 01/15/24. Supportive care for RSV - xopenex/atrovent nebs changed to prn, added MDI, NC O2, tessalon, flutter valve, incentive spirometry, prednisone, etc. cont hycodan for cough -slowly improving - lung exam clearing as of 01/18 -hope for home tomorrow -working on mobility - now getting OOB to commode -has home O2 set up (3) RSV (respiratory syncytial virus infection): Plan: With resulting bronchitis/asthma exacerbation. see above Procalcitonin slightly elevated, and there is dense consolidation on the chest CT in the RLL. could have superimposed RLL bacterial post-obstructive pneumonia. completed 5 day course of cefepime MRSA swab neg Blood cx's negative. (4) Asthma with exacerbation: Plan: Prior history of asthma - dx 10+ years ago. -see above (5) Right lower lobe lung mass: (6) Anemia: Plan: I obtained a d/c summary from [facility] from her stay from December to January 12. On 01/12 her hemoglobin was about 7.5. Hemoglobin here on 01/14 was 7.6. Her sister reports she received IV iron while in [place]. Fe studies, B12, and folate all satisfactory (ferritin markedly high due to acute phase). Transfused 1 unit / for Hgb 7, increased to 8.3. -CBC stable Hg 8.4, leukocytosis related to steroids (7) Prediabetes: Plan: Hba1c 5.9%. BSGs ac/hs. DM diet. Add novolog SSI if necessary. -BG at goal (8) Multiple pulmonary nodules: Plan: related to spindle cell carcinoma all bronch cultures from 12/2023 at [facility] were negative except for duane which likely does not require Rx. 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 cell counts from thoracentesis in December at [facility] c/w exudative effusion. Dr Oscar from pulmonary consulted. Appreciate his consult. No plans for thoracentesis at this time. (10) Hypertension: Plan: lisinopril-HCTZ are both on hold at this time - BPs acceptable off of it. BP more elevated 01/19, discussed resumption but she would rather hold off because of current illness, recent STEWART, impending chemo, which is all reasonable. (11) Acute metabolic encephalopathy: Plan: 2nd to #1, #2. supportive care. -resolved (12) STEWART (acute kidney injury): Plan: peak Cr 2.4 in mid-December at [facility]. likely pre-renal at that time. 1.2 on 01/18, resolved (was 1.5 in 2021, 2022) (13) Anxiety: Plan: associated with dyspnea -oral dose prn has been effective (14) Ovarian cyst: Plan: 4.3cm cyst vs mass on right ovary this was seen on 12/28/23 CT a/p the features of her chest pathology would be very atypical for ovarian ca (15) Candidiasis of mouth and esophagus: Plan: improved cont nystatin tameka - 5cc ac/hs - swish & spit Plan Lives with sister, required walker since discharge from [place] -PT/OT/chair -mobility improving, home with HH planned DVT ppx: daily enoxaparin. Admission and Anticipated Discharge Date Admission Date: January 15, 2024 Subjective breathing is improving. less short of breath with activity. cough improved. mobility much improved - up in chair, getting up to BSC Physical Exam 2 Physical Exam: PHYSICAL EXAMINATION Last 24h vital signs reviewed, see documentation in flowsheet General: comfortable appearing, no distress HEENT: Normocephalic, atraumatic, pupils round and equal, sclerae anicteric, no conjunctival injection, moist mucus membranes Lungs: Normal respiratory effort. no wheezing, scattered occ coarse sounds, air mvt much better VATS incision right chest healing well Heart: Regular rate and rhythm, no murmurs. No JVD Abdomen: Soft, nontender, nondistended. Bowel sounds present. Extremities: Warm, dry, well-perfused. No extremity edema. Neuro: Alert and oriented x 4, face symmetric, moves 4 extremities well Psych: normal affect and behavior Results & Data Results & Data Vital Signs (Past 12 Hours) Vital Signs Temp Pulse Resp BP Pulse Ox O2 Del Method O2 Flow Rate 01/21/24 10:35 Nasal Cannula 2 01/21/24 07:37 37.0 C 85 20 139/69 95 Nasal Cannula 2 01/21/24 07:24 84 18 97 Nasal Cannula 3 Laboratory Results 01/19/24 06:17 01/19/24 06:17 PG Care Time/CCT Total # of Minutes Spent Total Time Spent with Patient: Total time spent is greater than 50% in coordination of care (as documented) at patient's floor/unit and/or counseling patient: Coding Level of Care Code 71937 SUB INP/OBS CARE 2/35MIN Diagnoses Spindle cell carcinoma of thorax C76.1 Acute hypoxic respiratory failure J96.01 RSV (respiratory syncytial virus infection) B33.8 Asthma with exacerbation J45.901 Right lower lobe lung mass R91.8 Anemia D64.9 Prediabetes R73.03 Multiple pulmonary nodules R91.8 Pleural effusion J90 Hypertension I10 Acute metabolic encephalopathy G93.41 STEWART (acute kidney injury) N17.9 Anxiety F41.9 Ovarian cyst N83.209 Candidiasis of mouth and esophagus B37.81; B37.0
[2024-01-21] MEDS: LEVALBUTEROL 1.25 MG/3 ML NEB NEB PRN (18:06)
--- NOTE | 2024-01-22 16:28 | Discharge Summary ---
Date of Service January 22, 2024 Admission HPI Per Admitting Provider Pleasant 68yo female with history of asthma, HTN, CKD stage 3a, and pre-DM who was hospitalized at [facility] from 12/27 to 12/31/23 after suffering a pre-syncopal episode at a local physician's office. She was admitted following this event and as part of her work-up a chest x-ray showed significant pathology of the right chest. She therefore underwent a chest CT on 12/27/23 showing a 7.3 cm right lower lobe mass with probable invasion of the pleura. Multiple pulmonary nodules were seen bilaterally. A right-sided pleural effusion was present. On 12/29/23 our IR department attempted to biopsy the right pleural mass and perform thoracentesis. The fluid was bloody & loculated and only 10mL was able to be removed. [facility] Pulmonary was consulted and on 12/30/23 she underwent bronchoscopy with EBUS. Chest tube on the right was attempted but was unsuccessful. During EBUS the right hilar mass seemed to be very vascular. During that previous stay the pleural effusion worsened and due to inability to obtain diagnosis it was decided to transfer patient to [facility] to undergo VATS procedure. She was transferred on 12/31/23 to [facility] While there she did indeed undergo VATS of the right chest along with chest tube placement. Apparently biopsies from the VATS were negative/benign. Therefore, an IR-guided biopsy was then attempted on 01/12/24. Chest tube was removed on 01/12/24 as well. She was d/c from [facility] on 01/13/24 on 2 L NC O2 continuously. Upon d/c from [facility] the patient states she was not feeling well. She had a mild cough at that time. Apparently her roommate at [facility] had tested + for RSV while she was hospitalized in [place]. She was tested for RSV at [facility] but it returned negative. On Tuesday PM, 01/12, she & her twin sister stayed in [place] in a hotel. She apparently coughed much of the night Tuesday pm into Tuesday. Her oxygen had run out before coming back to [place] on Tuesday. She felt unwell all day yesterday with cough, shortness of breath, and poor appetite. She coughed all night again last pm and they decided to be evaluated in our ER this am due to the worsening symptoms. Resp [employer] returned + for RSV. During my admission assessment she looked unwell and was mildly confused. She coughed throughout the visit. She c/o dyspnea, fatigue, and simply feeling unwell. Cough is largely dry with occasional white mucous. Rare blood. Principal Diagnosis Acute hypoxic respiratory failure due to RSV, acute asthma exacerbation, possible RLL pneumonia, spindle cell carcinoma of thorax Discharge Exam PHYSICAL EXAMINATION Last 24h vital signs reviewed, see documentation in flowsheet General: comfortable appearing, no distress HEENT: Normocephalic, atraumatic, pupils round and equal, sclerae anicteric, no conjunctival injection, moist mucus membranes Lungs: Normal respiratory effort. no wheezing, scattered very occasional coarse sounds, good air movement VATS incision right chest healing well, removed dressing from chest tube sites these are also healing well without drainage or erythema Heart: Regular rate and rhythm, no murmurs. No JVD Abdomen: Soft, nontender, nondistended. Bowel sounds present. Extremities: Warm, dry, well-perfused. 1-2+ extremity edema. Neuro: Alert and oriented x 4, face symmetric, moves 4 extremities well Psych: normal affect and behavior Discharge Data Allergies Allergy/AdvReac Type Severity Reaction Status Date / Time Penicillins Allergy Unknown STRONG Verified 12/27/23 19:23 FAMILY HX-NEVER USED. 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 "medical doctor nuclear medicine" Verified 12/27/23 21:06 and "scented soap" - unknown rxn Consultations 01/15/24 08:18 ED Decision to Admit Stat 01/15/24 13:12 Consult Pulmonology Routine 01/16/24 12:53 Consult Oncology Routine 01/19/24 11:33 Consult General Surgery Routine Ordered Studies 01/15/24 09:50 CT angio chest PE protocol Urgent Chest X-Ray 01/15/24 05:51 XR chest 1V portable HISTORY: 68 years-old Female cough, sob acute cough or shortness of breath COMPARISON: 12/31/2023 , chest CT 12/27/2023. TECHNIQUE: AP view of the chest FINDINGS: Cardiac silhouette is enlarged. Patient is rotated. No pneumothorax. Pulmonary vascular congestion. Moderate to large right-sided pleural effusion with right lung volume loss/opacity is again noted. Multiple masses in the right hemithorax with left lung nodules again noted. Bones appear grossly intact. IMPRESSION: 1. Moderate to large right-sided pleural effusion with right lung volume loss and right basilar opacities are redemonstrated. 2. Multiple masses within the right hemithorax and left lung nodules, better depicted on prior chest CT. ACT 112: Negative or not required by law. The above report was generated using voice recognition software. It may contain grammatical, syntax or spelling errors. Electronically signed by: Fredy Little M.D. 01/15/2024 7:27 AM Chest CTA 01/15/24 09:50 CT angio chest PE protocol CT DOSE: 772.95 mGy.cm HISTORY: 68 years-old Female with R malignant effusion, RLL mass, RSV+, dyspnea. Follow-up study in a patient with right pleural effusion TECHNIQUE: Multiple CTA images of the chest were obtained after the intravenous administration of 117 ml Optiray. Coronal and sagittal MIPS were obtained from the axial data set and were submitted for review. All measurements were obtained according to NASCET criteria. A dose lowering technique was utilized adhering to the principles of ALARA. COMPARISON: Chest radiograph of same day, chest CT 12/27/2023, CT chest 09/08/2022 FINDINGS: CTA: Moderate cardiomegaly. No pericardial effusion. No thoracic aortic aneurysm or dissection identified. Study is degraded by respiratory motion. No central pulmonary emboli identified. CT CHEST: No thyroid nodule. There is stable pathologic lymphadenopathy which includes a 1.7 x 1.3 cm subcarinal lymph node on image 133. A few scattered subcentimeter gastrohepatic lymph nodes appear stable. Partially loculated moderate-sized right pleural effusion redemonstrated with right greater than left pleural based masses and numerous scattered bilateral solid pulmonary nodules are redemonstrated. Index 2.4 cm pleural-based mass of the left upper lobe on image 143 previously measured 1.7 cm. 2.1 cm nodule within the lingula on image 124 previously measured 1.8 cm. 1.3 cm right upper lobe nodule on image 168 previously measured 1.2 cm. Volume loss with consolidation in the right lung base is similar to prior. No overt pulmonary edema. Tiny hiatal hernia. Hepatic steatosis. Unchanged 1 cm subcutaneous nodule in the left upper anterior abdominal wall on image 27 series 4. No acute fracture or destructive bony lesion. IMPRESSION: 1. Study is degraded by respiratory motion artifact. No pulmonary emboli identified. 2. Partially loculated moderate-sized right pleural effusion with right greater than left pleural based masses redemonstrated. Several of the pulmonary nodules and pleural-based lesions have mildly increased in size compared to the study from 12/28/2023. 3. Generally stable lymphadenopathy. 4. Unchanged 1 cm subcutaneous nodule within the left upper abdominal wall. ACT 112: Negative or not required by law. The above report was generated using voice recognition software. It may contain grammatical, syntax or spelling errors. Electronically signed by: Fredy Little M.D. 01/15/2024 12:40 PM 01/19/24 06:17 01/19/24 06:17 Hospital Course (1) Acute hypoxic respiratory failure: 68 y/o woman admitted with acute hypoxic respiratory failure, RSV infection. Recently has had extensive workup for RLL lung mass and multiple pulmonary nodules including nondiagnostic biopsy at [facility] recently, nondiagnostic VATS biopsy at [facility] previous week, IR biopsy of JUAN lung nodule there immediately prior to admission here, pathology was pending on admission. 2nd to RSV infection in the setting of known asthma as well as right-sided pleural effusion, right-sided RLL lung mass, multiple b/l pulmonary nodules, right-sided atelectasis, etc. No complicating PE or CHF on CTA chest 01/15/24. 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 Underwent extensive evaluation including bronchoscopy with EBUS, VATS nondiagnostic, finally confirmed on biopsy of JUAN nodule done at [facility] . Consulted medical oncologist Dr. Kulkarni - overall this is a poor prognosis and not surgically resectable, plans palliative chemotherapy -consulted Dr. Dorman general surgery - scheduled for port placement as outpatient 01/24 -follow up with Dr. Kulkarni after that to start systemic chemotherapy (3) RSV (respiratory syncytial virus infection): With resulting bronchitis/asthma exacerbation. see above Procalcitonin slightly elevated, and there was dense consolidation on the chest CT in the RLL. could have superimposed RLL bacterial post-obstructive pneumonia. completed 5 day course of cefepime MRSA swab neg Blood cx's negative. (4) Asthma with exacerbation: Prior history of asthma - dx 10+ years ago. -see above (5) Right lower lobe lung mass: (6) Anemia: I obtained a d/c summary from [facility] from her stay from December to January 12. On 01/12 her hemoglobin was about 7.5. Hemoglobin here on 01/14 was 7.6. Her sister reports she received IV iron while in [place]. Fe studies, B12, and folate all satisfactory (ferritin markedly high due to acute phase). Transfused 1 unit 01/15 for Hgb 7, increased to 8.3. -CBC stable Hg 8.4, leukocytosis related to steroids (7) Prediabetes: Hba1c 5.9%. (8) Multiple pulmonary nodules: related to spindle cell carcinoma all bronch cultures from 12/2023 at [facility] were negative except for duane which does not require Rx. (9) Pleural effusion: right-sided, moderate-large, malignant pleural effusion related to spindle cell carcinoma. cell counts from thoracentesis in December at [facility] c/w exudative effusion. Dr Oscar from pulmonary consulted. Appreciate his consult. No plans for thoracentesis at this time. (10) Hypertension: lisinopril-HCTZ are both on hold at this time - BPs acceptable off of it. BP more elevated 01/19, discussed resumption but she would rather hold off because of current illness, recent STEWART, impending chemo, which is all reasonable. Reassess for resumption as outpatient (11) Acute metabolic encephalopathy: 2nd to #1, #2. supportive care. -resolved (12) STEWART (acute kidney injury): peak Cr 2.4 in mid-December at [facility]. likely pre-renal at that time. 1.2 on 01/18, resolved (was 1.5 in 2021, 2022) (13) Anxiety: (14) Ovarian cyst: 4.3cm cyst vs mass on right ovary this was seen on 12/28/23 CT a/p the features of her chest pathology would be very atypical for ovarian ca (15) Candidiasis of mouth and esophagus: improved, was treated with nystatin s/s Total Time Total Time Spent Total Time Spent (In Minutes): I personally spent: 35 minutes today on clinical care activities including: reviewing chart notes and vital signs examining and counseling the patient counseling the patient's family writing orders, discharge instructions documentation Discharge Plan Discharge Items Patient Disposition: Home - Home Health Services Reason For Visit: acute hypoxia respiratory failure, rsv+ Discharge Diagnosis: Acute hypoxic respiratory failure, RSV infection, Spindle cell carcinoma Condition on Discharge: Fair Activity: Resume your previous activity Non-emergency contact: Primary Care Provider and Oncologist Call non-emergency contact if: you have any medication questions and your symptoms worsen Follow-up/Referrals: Kameron Dorman MD [Physician] - Addison Kulkarni MD [Physician] - Riya Zelaya MD [Primary Care Provider] - Diet: Regular Addtl Attending Provider Instructions: Follow up with Dr. Dorman as scheduled on Tuesday for port placement Follow up with Dr. Kulkarni for chemotherapy after port placement You can use nasal saline and/or flonase for your nasal congestion. RSV can cause stuffy nose for 10 days and sometimes post viral cough lasts 2-4 weeks. You can use jxgg-pno-nyhevfz cough medicine or guaifenex as needed for cough. Acetaminophen (tylenol) is safe to take for pain Avoid NSAIDS (aleve/naproxen or motrin/advil/ibuprofen) because of your recent kidney injury Wheezing from RSV has resolved - few more days of prednisone then stop You can cover the wounds on R chest with dry gauze and change as needed. Once healed over you can leave them open to air. Keep clean and dry. You can monitor your oxygen on a finger pulse oximeter. As long as your O2 level stays 90% or better and you're not short of breath, you can probably stay off oxygen when you are at rest at this time. You will probably still need it when up and around or at night. Seek medical attention if you have significantly worsening shortness of breath or fever Pending Studies at Discharge: No Stand-Alone Forms: My [facility] clypd, Smoking Cessation Medications and DC Order Prescriptions: New guaifenesin [Mucinex] 600 mg Tablet Extended Release 12hr 1,200 mg PO Q12 Qty: 0 0RF Rx Instructions: buy over the counter prednisone 10 mg tablet 10 mg PO QAM Qty: 2 0RF Continued fenofibrate micronized 43 mg capsule 43 mg PO DAILY Qty: 90 3RF rosuvastatin 40 mg tablet 40 mg PO DAILY Qty: 90 3RF albuterol sulfate [ProAir HFA] 90 mcg/actuation HFA aerosol inhaler 1 puff INHALATION Q6H PRN (Reason: SOB) Qty: 8.5 3RF Jardiance 10 mg tablet 10 mg PO DAILY Qty: 30 2RF metformin 500 mg tablet 500 mg PO DAILY Qty: 90 3RF acetaminophen [Tylenol Arthritis Pain] 650 mg Tablet Extended Release 0 mg PO DIRECTED PRN (Reason: Pain) Rx Instructions: Unable to verify OTC meds at this time fluticasone propionate 44 mcg/actuation HFA aerosol inhaler 0 puff inhalation BID Rx Instructions: Unable to verify w/ patient at this date/time. Original Directions: 1 puff bid. Held lisinopril-hydrochlorothiazide 10-12.5 mg tablet 0 tab PO DAILY Hold Instructions: Resume on 02/06/24. Rx Instructions: Unable to verify w/ patient at this date/time. Original Directions: 1 tab by mouth daily Discharge Orders: Discharge Order (Routine); Ordered 01/22/24 Ordered By: Antonina Santoyo Admission Data Admit Date/Time: 01/15/24 09:59 Attending Provider: Antonina Santoyo Admit Provider: Wilfredo Jauregui Primary Care Provider: Riya Zelaya Other Providers: [facility]; Wilfredo Jauregui; Sunil Oscar; Addison Kulkarni; Kameron Dorman. Other Interventions: Discharge Summary Assessment (RN) Last Done: 01/22/24 11:08 Coding Level of Care Code 43350 INP/OBS DISCH >30 MIN Diagnoses Acute hypoxic respiratory failure J96.01 Spindle cell carcinoma of thorax C76.1 RSV (respiratory syncytial virus infection) B33.8 Asthma with exacerbation J45.901 Right lower lobe lung mass R91.8 Anemia D64.9 Prediabetes R73.03 Multiple pulmonary nodules R91.8 Pleural effusion J90 Hypertension I10 Acute metabolic encephalopathy G93.41 STEWART (acute kidney injury) N17.9 Anxiety F41.9 Ovarian cyst N83.209 Candidiasis of mouth and esophagus B37.81; B37.0 Home Health Attestation I certify that this patient is under my care and that I, or a physicians orthodontic technician assistant working with me, had a face to-face encounter that meets the home health shcn-nt-bdff encounter requirements with this patient. The encounter with the patient was in whole, or in part, for the following medical condition, which is the primary reason for home health care (list medical condition): Acute hypoxic respiratory failure due to RSV, asthma exacerbation, RLL pneumonia, spindle cell carcinoma of the thorax I certify that, based on my findings, the following services are medically necessary home health services: PT OT My clinical findings support the need for the above services because: OT Assess ADL Status and Restore Function w ADLs PT Eval for Safety, Gait Training, Assistive Devices PT Gait and Balance Training, Strengthening and Safety Further, I certify that my clinical findings support that this patient is homebound (i.e. absences from home require considerable and taxing effort and are for medical reasons or [facility] services or infrequently or of short duration when for other reasons) because: Supportive Aid - Walker Transportation Assistance/Unable to Leave Home Unassisted Certification for Home Health Services: Based on the above findings, I certify that this patient is confined to the home and needs intermittent half-way care, physical therapy and/or speech therapy or continues to need occupational therapy. The patient is under my care, and I have initiated the establishment of the plan of care. This patient will be followed by a physician who will periodically review the plan of care.
== END 2024-01-22 12:40 | disposition home health service (06) | DRG 189 ==
LOC: ED 04:11 → EDINP 09:59 → SUATTDRO 09:59 → 2E 13:12 → 3W 01-20 10:31

== ENCOUNTER 2024-02-10 16:39 | Inpatient (IN) ==
--- NOTE | 2024-02-10 16:44 | ED Triage Note ---
Date of Service February 10, 2024 Provider in Triage Author: Aba Hidalgo A History of Present Illness This patient was briefly evaluated while in triage. An abbreviated physical exam was performed. This patient is a 68-year-old Female who presents to the ED for evaluation of chest pain symptoms that began an hour ago. Currently has lung cancer. Last chemo was a week. No fever today, but feels fatigued. Reportedly had low blood pressure at home. Patient has a twin sister---registration may not be correct currently. is suspected to be correct for [facility] Physical Exam Limited Triage Exam: VITALS: Vitals are noted on the nurse's note and reviewed by myself. Vital signs stable. GENERAL: White female in a wheelchair and appears unwell HEART: Regular rate and rhythm LUNGS: Generally clear throughout NEURO: Patient was alert and oriented to person place and time. CN II through XII grossly intact. Initial orders for labs and / or imaging were placed and patient was placed in the waiting area until a bed is available. Please see further documentation for the full ED course. MDM / Impression Impression Impression: Pleural effusion
[2024-02-10 17:16] LABS: Hematocrit (blood only) 21.3 % (37.0-47.0); Hemoglobin 6.4 g/dl (12.0-16.0); Mean Corpuscular Hemoglobin 28.7 pg (25.0-34.0); Mean Corpuscular Volume 95.5 fL (80.0-100.0); Mean Platelet Volume 9.5 fL (9.4-12.4); Platelet Count 117 K/uL (130-400); RDW Coefficient of Variation 14.5 % (11.5-14.5); RDW Standard Deviation 50.4 fL (36.4-46.3); Red Blood Count 2.23 M/uL (4.20-5.40); White Blood Count 0.51 K/ul (4.8-10.8)
[2024-02-10 17:26] LABS: Pregnancy Test, Serum Negative (Negative)
[2024-02-10 17:28] LABS: Alanine Aminotransferase 13 U/L (7-52); Albumin Globulin Ratio 0.9 (0.9-2); Alkaline Phosphatase 105 U/L (34-104); Anion Gap 9 (3-11); Aspartate Aminotransferase 15 U/L (13-39); BUN Creatinine Ratio 26.4 (10-20); Bilirubin,Total 0.5 mg/dl (0.2-1.0); Blood Urea Nitrogen 33 mg/dl (6-23); Calcium 8.6 mg/dl (8.6-10.3); Carbon Dioxide 22 mmol/L (21-32); Chloride 111 mmol/L (98-107); Est GFR (African American) 51.9 ml/min; Est GFR (Non-African American) 44.8 ml/min; Globulin 3.3 gm/dl (2.5-4.0); Glucose 118 mg/dl (70-99(Fasting)); Lipase 15 U/L (11-82); Sodium 142 mmol/L (136-145); Total Protein 6.3 gm/dl (6.0-8.3)
--- NOTE | 2024-02-10 17:30 | XRay Report ---
XR chest 1V portable HISTORY: Chest pain, nonspecific COMPARISON: Chest 01/26/2024. FINDINGS: No pneumothorax. A large right pleural effusion is again noted. This remains unchanged. Thi s results in mass effect with left mediastinal shift. This has progressed in the interval. The heart is stable in size. A left subclavian Port-A-Cath terminates in the SVC. No acute fractures. Lymphaden opathy, pleural masses, and pulmonary lesions are better evaluated on the recent chest CT. Right basi lar densities persist. This favors atelectasis from the pleural effusion. IMPRESSION: 1. A large right pleural effusion with interval development of mass effect along the mediastinum resu lting in left mediastinal shift. This has progressed in the interval. Consider right-sided thoracente sis for decompression. 2. The lymphadenopathy, pleural masses, pulmonary lesions are better evaluated on the prior chest CT. ACT 112: Negative or not required by law. Electronically signed by: Romaine Tripp M.D. 02/10/2024 5:29 PM
[2024-02-10 17:38] LABS: INR 1.1 (0.9-1.1); Partial Thromboplastin Ratio 1.1; Partial Thromboplastin Time 31 Seconds (21-31); Prothrombin Time 12.4 Seconds (9.0-12.0)
[2024-02-10 17:50] LABS: Eosinophils # (auto) 0.05 K/uL (0.00-0.50); Eosinophils % (auto) 9.8 %; Immature Granulocytes # (auto) 0.01 K/uL (0.01-0.20); Lymphocytes # (auto) 0.34 K/uL (1.20-3.40); Lymphocytes % (auto) 66.7 %; Monocytes # (auto) 0.07 K/uL (0.11-0.59); Monocytes % (auto) 13.7 %; Neutrophils # (auto) 0.04 K/uL (1.40-6.50); Neutrophils % (auto) 7.8 %
[2024-02-10] MEDS ORDERED: SODIUM CHLORIDE 0.9% 250 ML IV PRN (17:56)
[2024-02-10 18:35] LABS: Adenovirus PCR Not Detected (NotDetected); Bordetella parapertussis PCR Not Detected (NotDetected); Bordetella pertussis PCR Not Detected (NotDetected); Chlamydia pneumoniae PCR Not Detected (NotDetected); Coronavirus 229E PCR Not Detected (NotDetected); Coronavirus CoV-2 (COVID19)PCR Not Detected (NotDetected); Coronavirus HKU1 PCR Not Detected (NotDetected); Coronavirus NL63 PCR Not Detected (NotDetected); Coronavirus OC43PCR Not Detected (NotDetected); Human Metapneumovirus PCR Not Detected (NotDetected); Influenza A PCR Not Detected (NotDetected); Influenza B PCR Not Detected (NotDetected); Mycoplasma pneumoniae PCR Not Detected (NotDetected); Parainfluenza Virus 1 PCR Not Detected (NotDetected); Parainfluenza Virus 2 PCR Not Detected (NotDetected); Parainfluenza Virus 3 PCR Not Detected (NotDetected); Parainfluenza Virus 4 PCR Not Detected (NotDetected); Respiratory Syncytial VirusPCR Not Detected (NotDetected); Rhinovirus/Enterovirus PCR Not Detected (NotDetected)
--- NOTE | 2024-02-10 18:41 | History & Physical Report ---
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 Patient is not sure which chemotherapy agent she receiving gone. Pending records from [facility] system. None available at time of overnight check in [facility]. Port was placed 01/24, no overlying erythema/warmth/tenderness Patient is neutropenic on admission, neutropenic precautions. Completed course of Levaquin today for prior UTI. No ongoing urinary symptoms. On reassessment Pt with fever >100*F. Biofire negative. Neutropenic. BCs collected on admit. Lactate wnl. Pt started on cefepime/vanc for empiric coverage. Sputum pending. Pt has tolerated cefepime in the past. (2) Acute hypoxic respiratory failure: Plan: Hypoxic respiratory failure With history of malignancy/exudative/hemorrhagic effusion, 2 L oxygen home oxygen requirement. Reviewed chest x-ray with pulmonology, slightly rotated but suspected similar to prior -Patient endorses pain when breathing, pain when coughing and has a feeling of discomfort in her left chest, mid back with deep breathing. Some of this is reproduced on palpation, some is not. She has not been on anticoagulation, and is PESI class V very high risk. CTA pending, pulmonology consulted, possible thoracentesis in the morning. CT signed out to overnight provider to follow for PE and need for anticoagulation. SpO2 currentlyu stable. Normotensive. (3) Anemia: Plan: Acute on chronic anemia Hemoglobin 6.4, last 7.8. Patient was 6.8 on 01/16/2024 and improved with 1 unit of transfusion with subsequent slow downtrend. No evidence of active bleeding 40 units IV Lasix to be given with blood Transfused 1 unit, trend CBC every 8 hours. Suspect AoCD, tsat%, b12, folate normal 01/2024. Repeat H&H post 1 unit in addition to trend above - Transfuse for threshold of 7.0 (4) Stage 3b chronic kidney disease (CKD): Plan: Prerenal azotemia, CKD Baseline creatinine approximately 1.2, creatinine on admission 1.25 Estimated GFR 44, renally dose medications as needed Trend BMP daily - Clinically volume (5) Diabetes: Plan: DM2 Empagliflozin/metformin held, switch to basal bolus insulin while inpatient, dose reduced due to renal function. Pharmacy consulted - Lantus 8u BID dose reduced to 5u BID, CF 50, CR 25. - Goal bsg 110-150 (6) Rash: Plan: Blanching macular rash across her low abdomen, proximal thighs, somewhat on the chest and sparing the distal forearms. Nonpruritic, nontender. Without sharp demarcation Patient has been on Levaquin has multiple antibiotic allergies and has not been on a fluoroquinolone before to her knowledge. New medications include chemotherapy, promethazine for nausea, and the Levaquin. Levaquin was complete this morning, no additional doses given. Promethazine held, will switch to Zofran. Continue to monitor. No airway swelling or evidence of angioedema/anaphylaxis Plan DVT prophylaxis: Pharmacoprophylaxis deferred pending hemoglobin stability while undergoing transfusion, SCDs on admission if hemoglobin with appropriate rise in stable and no signs of active bleeding, had heparin subcu for thromboprophylaxis. 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 Chest x-ray shows large right pleural effusion with development of mass effect along the mediastinum with shift progressed compared to prior. This was reviewed with pulmonology by ER provider, on comparison was felt to be more chronic/ not recommended for emergent thoracentesis. Pulmonary consultated and will continue to follow. Faiza is seen at the bedside. She reports that after her recent course and chest tube was removed approximately 3 weeks ago she was doing okay. Followed up with oncology and had chemo this past week. Tolerated this well with some nausea, was placed on Levaquin for UTI which she finished her 5-day course today. She has had some worsening shortness of breath, and today she feels like her breathing became much worse around 3 PM. She notes a feeling of discomfort in her chest with radiation to her back between her shoulder blades, pain is worse both when coughing and when attempting to take a deep breath and feels she has a sensation that she cannot get air. She knows she does have panic attacks and anxiety which make this feeling worse. She does feel her breathing is currently worse than normal, although her oxygen requirements do not seem to have gone up she has desaturated to the mid 80s on ambulation but has been in the 90s at home at rest with her normal 2 L of oxygen. She has not been on any pharmacal prophylaxis since being in the hospital and was on DVT prophylaxis at that time. Denies leg swelling or calf pain. Denies trauma/injuries. Notes she did have a port placed. She denies fever, shaking chills, sweats, rigors today. She denies abdominal pain but does endorse nausea and feels that her shortness of breath and breathing makes the nausea worse. Denies bright red blood per rectum, diarrhea, constipation. Endorses a rash over her lower abdomen and mid thighs which just began today. Only new medications were Levaquin which she completed this morning a 5-day course, and promethazine for nausea which she took the first dose last night. Denies lip swelling, tongue swelling, inspiratory wheezing. Medical History: Reviewed Medications: Reviewed Surgical History: Reviewed Family history: Reviewed Allergies: Reviewed Social History: Reviewed Code Status: Full code Allergies Allergy/AdvReac Type Severity Reaction Status Date / Time adhesive Allergy Mild Rash Verified 02/10/24 18:10 Penicillins Allergy Unknown "Strong Verified 02/10/24 18:10 family history"- never used Sulfa (Sulfonamide AdvReac Severe Severe N/V Verified 02/10/24 18:10 Antibiotics) oxycodone [From Percocet] AdvReac Intermediate Palpitations, Verified 02/10/24 18:10 "felt like I was on speed" soap AdvReac Unknown "Hose Builder Verified 02/10/24 18:10 & scented soap" - unknown rxn Home Medications Medication Instructions Recorded Confirmed Type acetaminophen 650 mg 0 mg PO DIRECTED PRN Pain 06/22/19 02/10/24 History tablet,extended release (Tylenol Arthritis Pain) fenofibrate micronized 43 mg 43 mg PO DAILY #90 caps 07/13/23 02/10/24 Rx capsule rosuvastatin 40 mg tablet 40 mg PO DAILY #90 tabs 07/13/23 02/10/24 Rx albuterol sulfate 90 mcg/actuation 1 puff inhalation Q6H PRN SOB #8.5 09/29/23 02/10/24 Rx aerosol inhaler (ProAir HFA) grams fluticasone propionate 44 0 puff inhalation BID 12/27/23 02/10/24 History mcg/actuation HFA aerosol inhaler metformin 500 mg tablet 500 mg PO DAILY #90 tabs 01/04/24 02/10/24 Rx guaifenesin 600 mg tablet, 1,200 mg (2 x 600 mg) PO Q12 #0 01/22/24 02/10/24 Rx extended release 12 hr (Mucinex) tabs empagliflozin 10 mg tablet 10 mg PO DAILY #30 tabs 01/24/24 02/10/24 Rx (Jardiance) pantoprazole 40 mg tablet,delayed 40 mg PO DAILY #90 tabs 02/01/24 02/10/24 Rx release levofloxacin 500 mg tablet 500 mg PO DAILY 02/10/24 02/10/24 History Past Med/Surg History Medical History Diabetes Dyslipidemia History of recent blood transfusion 01/2024 [facility] On home oxygen therapy 2 lpm via NC, PRN during day, continuous HS Poor historian Spindle cell carcinoma of thorax Recent dx Anxiety Right lower lobe lung mass Pleural effusion Right, suspected malignant- 12/2023 Multiple pulmonary nodules [facility]EWART (acute kidney injury) Hx Psoriasis Stage 3b chronic kidney disease (CKD) Osteopenia Hypertension Arthritis Asthma Recent exacerbation and hospitalization at [facility] in setting of RSV (01/2024) Obesity Encephalitis Hx age 9, paralyzed x 1 year, no residual issues Ureterolithiasis Hx Kidney stones Surgical History History of lung biopsy Philippe Chase 01/2024 S/P thoracostomy tube placement VATS with biopsies + chest tube placement - 12/2023 - [facility] History of incision and drainage incision and drainage of left axillary abscess Dr. Gil 12/04/20 +MRSA History of difficult intubation cystoscopy, right ureteroscopy, stent placement: 06/22/19: Elective glidescope #3 grade view 1 at [facility] History of tonsillectomy History of lithotripsy History of cystoscopy with stent History of foot surgery Right H/O knee surgery R/L History of ankle surgery Left Family History Father Hypertension Hx of CABG Sister Hypertension Colorectal cancer Mother Colorectal cancer Stroke Aunt Myocardial infarction maternal Denies family history of Ovarian cancer Prostate cancer Breast cancer Social History Smoking Status: Never smoker Second Hand Exposure: No; Do You Dip or Chew Tobacco: No; Hx Alcohol Use: No Hx Substance Use: No Preferred Language: Greenlandic Communication Ability: Effective Visual Impairment: No Limitations Maintenance Repairer Required: No Beliefs That Will Affect Care: None marital status: Single Current Living Situation: Family Current Living Situation Comment: Lives with sister. 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al status: retired 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: worked in [employer]'s office at [employer] How many Children do You have: 0 Feels Safe at Home: Yes Childhood Exposure to Second-Hand Smoke: No Diet: regular caffeine: Yes (1 cup of tea approx 2x a week) Dental Care, Regularly: Yes Physical Activity Frequency: Daily Physical Activity Frequency Comment: walk Seatbelt Use: always Sunscreen Use: Yes Assistive Devices: Glasses, Oxygen - at Night and Walker Review of Systems Review of Systems: All systems reviewed & are unremarkable except as noted in HPI & below Physical Exam Physical Exam: General: A&Ox3. NAD. Cooperative. HEENT: Atraumatic, normocephalic. Vision and hearing grossly intact port without erythema/warmth/tenderness Pulm: Diminished diffusely on the right quadrant, grossly clear in the left/left upper. Patient is anxious appearing and tachypneic breathing approximately 28 at bedside Cardiac: Regular, tachycardic. Radial pulses intact and symmetrical. Abdominal: Nontender, nondistended, soft. BS present. Diffuse blanching nonpruritic nontender rash is present overlying the abdomen, proximal thighs Results & Data Results & Data Vital Signs (Past 12 Hours) Vital Signs Temp Pulse Pulse Resp BP BP Pulse Ox 02/10/24 17:26 98 02/10/24 17:26 112 H 20 118/64 98 02/10/24 17:26 98 02/10/24 17:25 113 H 02/10/24 16:42 36.7 C 109 H 20 185/139 H 100 O2 Del Method O2 Flow Rate 02/10/24 17:26 Nasal Cannula 2 02/10/24 17:26 Nasal Cannula 2 02/10/24 17:26 Nasal Cannula 2 02/10/24 17:25 02/10/24 16:42 Room Air PG Care Time/CCT Total # of Minutes Spent Total Time Spent with Patient: Total time spent is greater than 50% in coordination of care (as documented) at patient's floor/unit and/or counseling patient: Coding Level of Care Code 98255 INT INP/OBS CARE 375MIN Diagnoses Spindle cell carcinoma C80.1 Acute hypoxic respiratory failure J96.01 Anemia D64.9 Stage 3b chronic kidney disease (CKD) N18.32 Diabetes E11.9 Rash R21
[2024-02-10] MEDS: FUROSEMIDE 40 MG/4 ML VIAL IV ONE (20:26)
[2024-02-10] MEDS ORDERED: ACETAMINOPHEN 325 MG TAB PO PRN (20:28)
[2024-02-10] MEDS: ACETAMINOPHEN 325 MG TAB ONE (20:34)
[2024-02-10] MEDS: OPTIRAY 320 125ml IV ONE (21:19)
[2024-02-10] MEDS ORDERED: VANCOMYCIN CONSULT ACTIVE PRN (21:43)
[2024-02-10] MEDS ORDERED: VANCOMYCIN HCL 1,250 MG in SODIUM CHLORIDE 0.9% 500 ML IV SCH (21:45)
[2024-02-10] MEDS ORDERED: GLUCOSE 40% GEL 15 GM TUBE PO PRN (21:49)
[2024-02-10] MEDS ORDERED: GLUCAGON FOR INJ 1 MG VIAL SQ PRN (21:49)
[2024-02-10] MEDS ORDERED: PHARMACY GLYCEMIC MGMT CONSULT PRN (21:49)
[2024-02-10] MEDS ORDERED: ALBUTEROL HFA 8 GM INHALER INH PRN (21:49)
[2024-02-10] MEDS ORDERED: GLUCOSE 10 TAB/TUBE PO PRN (21:49)
[2024-02-10] MEDS ORDERED: CARBOHYDRATES FOR HYPOGLYCEMIA PO PRN (21:49)
[2024-02-10] MEDS ORDERED: DEXTROSE 50% 50 ML SYRINGE IV PRN (21:49)
[2024-02-10] MEDS: INSULIN ASPART PER UNIT CHARGE SC SCH (22:21)
[2024-02-10] MEDS: LORazepam 1 MG TAB PO PRN (22:29)
[2024-02-10] MEDS: CEFEPIME 2,000 MG in SYRINGE 0 ML IV SCH (22:30)
[2024-02-10] MEDS: VANCOMYCIN HCL 1,750 MG in SODIUM CHLORIDE 0.9% 500 ML IV ONE (22:37)
--- NOTE | 2024-02-10 22:45 | CT Scan Report ---
Exam(s): CTA CHEST IV Amt: 116 cc opti 320 EXAM: CT Angiography Chest With Intravenous Contrast CLINICAL HISTORY: Reason for exam: PE. TECHNIQUE: Axial computed tomographic angiography images of the chest with intravenous contrast. CTDI is 280.7 mGy and DLP is 705.35 mGy-cm. Automated exposure control was utilized for the study. A dose lowering technique was utilized adhering to the principles of ALARA. MIP reconstructed images were created and reviewed. COMPARISON: 01/15/2024 FINDINGS: Pulmonary arteries: No pulmonary embolism. Aorta: No acute findings. Normal caliber. No dissection. Lungs: Interval increase in size of the large mass which now fills the majority of the right hemithorax measuring up to 20.7 x 15.4 x 16.5 cm. There is shift of the mediastinal structures and heart into the left hemithorax. Additional scattered pulmonary nodules within the lungs. No convincing evidence of pneumonia. Pleural space: Unremarkable. Heart: Shifted into the left hemithorax. Bones/joints: No acute fracture. Soft tissues: Unremarkable. Lymph nodes: Unremarkable. IMPRESSION: 1. No pulmonary embolism. 2. Interval increase in size of the large mass which now fills the majority of the right hemithorax measuring up to 20.7 x 15.4 x 16.5 cm. There is shift of the mediastinal structures and heart into the left hemithorax. 3. Additional scattered pulmonary nodules within the lungs. Electronically signed by: Kunal Salinas MD 02/10/24 22:44 PM
--- NOTE | 2024-02-10 22:49 | Emergency Department Note ---
Impression & Plan Pleural effusion ADMIT ED Provider Note HPI: History obtained from The patient is a 68-year-old female with a history of spindle cell carcinoma of the thorax, currently on chemotherapy, on baseline 2 L nasal cannula oxygen at home, presents the emergency department with a chief complaint of chest pain shortness of breath. Patient stated that her symptoms began about an hour prior to arrival to the ED. On arrival here to the ED the patient is hemodynamically stable on her 2 L nasal cannula oxygen. Denies any nausea or vomiting, states she does have some mild substernal chest discomfort that radiates to her back. ROS: - Per HPI Differential Diagnosis: Acute coronary syndrome, aortic dissection, pulmonary embolism, pneumothorax, hemothorax, malignant pleural effusion, amongst other potential pathologies. *Outpatient medications and allergy history reviewed. PE: General: Alert HEENT: Normocephalic, trachea midline Eyes: Extraocular eye movement is intact, no scleral erythema Pulmonary: Diminished right sided breath sounds without crackles or wheezing Cardio: Regular rate and rhythm GI: Abdomen is soft to palpation : No suprapubic tenderness MSK: No evidence of trauma or malformation of the extremities, no edema Skin: No evidence of rash Neuro: Alert, no focal deficits Psychiatric: Cooperative INDEPENDENT INTERPRETATIONS: manager line: (As interpreted by myself): - An order was placed for continuous cardiac monitoring - Patient was noted to be in sinus rhythm with a rate of 95 EKG: (As interpreted by myself): Rate: 108 Rhythm: Sinus tachycardia Intervals: Within normal limits ST changes: No ST elevation Time: 1647 Chest x-ray: (As interpreted by myself): Large right-sided pleural effusion ED interventions: -Packed red blood cell transfusion ordered Medical Decision Making: IV was established and lab work obtained, patient was placed on brick pointer. Lab work shows leukopenia with white blood cell count 0.51, hemoglobin is also low at 6.4, platelet count is reduced at 117, CMP does not show any critical findings, creatinine is near baseline at 1.25, BUN mildly elevated at 33, troponin is negative x 1, EKG per my interpretation does not show any acute ischemic changes. Chest x-ray shows a large right-sided pleural effusion with some tracheal deviation to the left. I did discuss the patient's presentation and chest x-ray findings (showing large right-sided pleural effusion with tracheal deviation) shortly after the patient arrived with the on-call pellet preparation operator, Dr. Cee, who did tell me that he is very familiar with the patient and has seen her previously. He states that this is a chronic pleural effusion and given that the patient is stable on her 2 L nasal cannula oxygen and is otherwise hemodynamically stable he does not feel that an emergent thoracentesis is indicated at this time. He did review the chest x-rays both from today and patient's previous chest x-ray. I did discuss this with the patient and she is in agreement. Dr. Cee did recommend that she be transfused as her hemoglobin is low at 6.4, patient consented for transfusion and packed red blood cells were ordered by myself from the ED. I suspect that the patient's symptoms are likely related to her underlying lung mass with pleural effusion however at this time she is hemodynamically stable. Troponin is negative, EKG does not show any ischemic changes, low suspicion for ACS. Patient's case was discussed with the on-call hospitalist, Dr. Hamm, and the patient was placed for admission in stable condition. Critical care time: 50 minutes -Management of patient with acute symptomatic anemia requiring packed red blood cell transfusion for hemoglobin less than 7.0g/dl, time spent at the bedside, discussion with patient and family, discussion with other physicians including pulmonology and on-call hospitalist service for arrangement of admission Consultants/Discussions held with other healthcare providers: -Pulmonology, Dr. Cee -Hospitalist, Dr. Hamm Disposition discussion held by myself with: -Patient and patient's sister at the bedside Diagnosis: 1. Right-sided pleural effusion, acute on chronic 2. History of carcinoma of the thorax, currently on chemotherapy 3. Chest pain, acute, nonspecific 4. Symptomatic anemia, acute 5. Neutropenia, acute 6. Leukopenia, acute 7. Thrombocytopenia, acute Disposition: Admission Rosales Oviedo DO Emergency Medicine Past Med/Surg History Medical History Diabetes Dyslipidemia History of recent blood transfusion 01/2024 [facility] On home oxygen therapy 2 lpm via NC, PRN during day, continuous HS Poor historian Spindle cell carcinoma of thorax Recent dx Anxiety Right lower lobe lung mass Pleural effusion Right, suspected malignant- 12/2023 Multiple pulmonary nodules STEWART (acute kidney injury) Hx Psoriasis Stage 3b chronic kidney disease (CKD) Osteopenia Hypertension Arthritis Asthma Recent exacerbation and hospitalization at [facility] in setting of RSV (01/2024) Obesity Encephalitis Hx age 9, paralyzed x 1 year, 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 Gil 12/04/20 +MRSA History of difficult intubation cystoscopy, right ureteroscopy, stent placement: 06/22/19: Elective glidescope #3 grade view 1 at [facility] History of tonsillectomy History of lithotripsy History of cystoscopy with stent History of foot surgery Right H/O knee surgery R/L History of ankle surgery Left Family History Father Hypertension Hx of CABG Sister Hypertension Colorectal cancer Mother Colorectal cancer Stroke Aunt Myocardial infarction maternal Denies family history of Ovarian cancer Prostate cancer Breast cancer Social History Smoking Status: Never smoker Second Hand Exposure: No; Do You Dip or Chew Tobacco: No; Hx Alcohol Use: No Hx Substance Use: No Preferred Language: Kinyarwanda Communication Ability: Effective Visual Impairment: No Limitations Optometrist President/Practice Owner Required: No Beliefs That Will Affect Care: None marital status: Single Current Living Situation: Family Current Living Situation Comment: Lives with sister. 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al status: retired 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: worked in [employer]'s office at [employer] How many Children do You have: 0 Feels Safe at Home: Yes Childhood Exposure to Second-Hand Smoke: No Diet: regular caffeine: Yes (1 cup of tea approx 2x a week) Dental Care, Regularly: Yes Physical Activity Frequency: Daily Physical Activity Frequency Comment: walk Seatbelt Use: always Sunscreen Use: Yes Assistive Devices: Glasses, Oxygen - at Night and Walker Allergies Allergies Allergy/AdvReac Type Severity Reaction Status Date / Time adhesive Allergy Mild Rash Verified 02/10/24 18:10 Penicillins Allergy Unknown "Strong Verified 02/10/24 18:10 family history"- never used Sulfa (Sulfonamide AdvReac Severe Severe N/V Verified 02/10/24 18:10 Antibiotics) oxycodone [From Percocet] AdvReac Intermediate Palpitations, Verified 02/10/24 18:10 "felt like I was on speed" soap AdvReac Unknown "Vending Attendant Verified 02/10/24 18:10 & scented soap" - unknown rxn Home Meds Home Medications Medication Instructions Recorded Confirmed acetaminophen 650 mg 0 mg PO DIRECTED PRN Pain 06/22/19 02/10/24 tablet,extended release (Tylenol Arthritis Pain) fluticasone propionate 44 0 puff inhalation BID 12/27/23 02/10/24 mcg/actuation HFA aerosol inhaler levofloxacin 500 mg tablet 500 mg PO DAILY 02/10/24 02/10/24 Previous Rx's Medication Instructions Recorded fenofibrate micronized 43 mg 43 mg PO DAILY #90 caps 07/13/23 capsule rosuvastatin 40 mg tablet 40 mg PO DAILY #90 tabs 07/13/23 albuterol sulfate 90 mcg/actuation 1 puff inhalation Q6H PRN SOB #8.5 09/29/23 aerosol inhaler (ProAir HFA) grams metformin 500 mg tablet 500 mg PO DAILY #90 tabs 01/04/24 guaifenesin 600 mg tablet, 1,200 mg (2 x 600 mg) PO Q12 #0 01/22/24 extended release 12 hr (Mucinex) tabs empagliflozin 10 mg tablet 10 mg PO DAILY #30 tabs 01/24/24 (Jardiance) pantoprazole 40 mg tablet,delayed 40 mg PO DAILY #90 tabs 02/01/24 release Results & Data (ED) Vital Signs Vital Signs - 24 hr 02/10/24 16:42 02/10/24 16:42 02/10/24 17:25 Temperature 36.7 C Temperature Source Temporal Artery Scan Pulse Rate 109 H 113 H Pulse Rate [Apical] Pulse Rhythm Pulse Strength Respiratory Rate 20 Respiratory Effort / Characteristics SOB on Exertion Respiratory Depth Blood Pressure 185/139 H Blood Pressure [Right Arm] Blood Pressure Mean 154 Blood Pressure Mean [Right Arm] Blood Pressure Position Pulse Oximetry 100 Oxygen Delivery Method Room Air Oxygen Flow Rate Sepsis Recent Fever Within 48 Hours No Sepsis New/Unexplained Change in Mental Status N/A Sepsis Action Taken by Nursing No Action Required 02/10/24 17:26 02/10/24 17:26 02/10/24 17:26 Temperature Temperature Source Pulse Rate Pulse Rate [Apical] 112 H Pulse Rhythm Pulse Strength Respiratory Rate 20 Respiratory Effort / Characteristics Non-Labored Respiratory Depth Normal Blood Pressure Blood Pressure [Right Arm] 118/64 Blood Pressure Mean Blood Pressure Mean [Right Arm] 82 Blood Pressure Position Pulse Oximetry 98 98 98 Oxygen Delivery Method Nasal Cannula Nasal Cannula Nasal Cannula Oxygen Flow Rate 2 2 2 Sepsis Recent Fever Within 48 Hours Sepsis New/Unexplained Change in Mental Status Sepsis Action Taken by Nursing 02/10/24 18:38 02/10/24 18:39 02/10/24 19:24 Temperature 37.7 C H Temperature Source Oral Pulse Rate 115 H Pulse Rate [Apical] 116 H Pulse Rhythm Pulse Strength Respiratory Rate 20 28 H Respiratory Effort / Characteristics Non-Labored Respiratory Depth Normal Blood Pressure 135/82 Blood Pressure [Right Arm] 116/88 Blood Pressure Mean 99 Blood Pressure Mean [Right Arm] 97 Blood Pressure Position Pulse Oximetry 96 96 Oxygen Delivery Method Nasal Cannula Oxygen Flow Rate 2 2 Sepsis Recent Fever Within 48 Hours Sepsis New/Unexplained Change in Mental Status Sepsis Action Taken by Nursing 02/10/24 19:40 02/10/24 19:55 02/10/24 20:25 Temperature 37.5 C 37.9 C H 37.2 C Temperature Source Oral Oral Oral Pulse Rate 111 H 113 H 115 H Pulse Rate [Apical] Pulse Rhythm Regular Regular Regular Pulse Strength Normal Normal Normal Respiratory Rate 24 27 H 18 Respiratory Effort / Characteristics Respiratory Depth Blood Pressure 128/51 L 166/70 H 102/56 L Blood Pressure [Right Arm] Blood Pressure Mean 76 102 71 Blood Pressure Mean [Right Arm] Blood Pressure Position Lying Lying Lying Pulse Oximetry 95 98 97 Oxygen Delivery Method Oxygen Flow Rate 2 2 2 Sepsis Recent Fever Within 48 Hours Sepsis New/Unexplained Change in Mental Status Sepsis Action Taken by Nursing Laboratory Data 02/10/24 16:54 02/10/24 16:54 Lab Results 02/10/24 02/10/24 02/10/24 Range/Units 16:54 17:30 18:06 WBC 0.51 L* (4.8-10.8) K/ul RBC 2.23 L (4.20-5.40) M/uL Hgb 6.4 L* (12.0-16.0) g/dl Hct 21.3 L (37.0-47.0) % MCV 95.5 (80.0-100.0) fL MCH 28.7 (25.0-34.0) pg MCHC 30.0 L (32.0-36.0) g/dL RDW Std Deviation 50.4 H (36.4-46.3) fL RDW Coeff of Marcos 14.5 (11.5-14.5) % Plt Count 117 L (130-400) K/uL MPV 9.5 (9.4-12.4) fL Immature Gran % (Auto) 2.0 % Neut % (Auto) 7.8 % Lymph % (Auto) 66.7 % Early % (Auto) 13.7 % Eos % (Auto) 9.8 % Baso % (Auto) 0.0 % Neut # (Auto) 0.04 L* (1.40-6.50) K/uL Lymph # (Auto) 0.34 L (1.20-3.40) K/uL Early # (Auto) 0.07 L (0.11-0.59) K/uL Eos # (Auto) 0.05 (0.00-0.50) K/uL Baso # (Auto) 0.00 (0.00-0.20) K/uL Immature Gran # (Auto) 0.01 (0.01-0.20) K/uL PT 12.4 H (9.0-12.0) Seconds INR 1.1 (0.9-1.1) APTT 31 (21-31) Seconds PTT Ratio 1.1 Sodium 142 (136-145) mmol/L Potassium 4.0 (3.5-5.1) mmol/L Chloride 111 H (98-107) mmol/L Carbon Dioxide 22 (21-32) mmol/L Anion Gap 9 (3-11) BUN 33 H (6-23) mg/dl Creatinine 1.25 H (0.6-1.2) mg/dl Est Cr Clr Drug Dosing Not Reportable Est GFR ( Amer) 51.9 ml/min Est GFR (Non-Af Amer) 44.8 ml/min BUN/Creatinine Ratio 26.4 H (10-20) Glucose 118 H (70-99(Fasting)) mg/dl Lactate 1.8 (0.4-2.0) mmol/L Calcium 8.6 (8.6-10.3) mg/dl Total Bilirubin 0.5 (0.2-1.0) mg/dl AST 15 (13-39) U/L ALT 13 (7-52) U/L Alkaline Phosphatase 105 H (34-104) U/L Troponin I High Sens 10.0 (0-14) pg/ml B-Natriuretic Peptide (0-100) pg/ml Total Protein 6.3 (6.0-8.3) gm/dl Albumin 3.0 L (3.4-5.0) gm/dl Globulin 3.3 (2.5-4.0) gm/dl Albumin/Globulin Ratio 0.9 (0.9-2) Lipase 15 (11-82) U/L HCG, Qual Negative (Negative) Adenovirus (PCR) Not Detected (NotDetected) B. pertussis DNA (PCR) Not Detected (NotDetected) B.parapertussis DNA PCR Not Detected (NotDetected) C. pneumoniae DNA (PCR) Not Detected (NotDetected) Coronavirus OC43 (PCR) Not Detected (NotDetected) Coronavirus HKU1 (PCR) Not Detected (NotDetected) Coronavirus 229E (PCR) Not Detected (NotDetected) SARS-CoV-2 (PCR) Not Detected (NotDetected) Coronavirus NL63 (PCR) Not Detected (NotDetected) Human Metapneumovir PCR Not Detected (NotDetected) Influenza Type A (PCR) Not Detected (NotDetected) Influenza Type B (PCR) Not Detected (NotDetected) M. pneumoniae (PCR) Not Detected (NotDetected) Parainfluenza 1 (PCR) Not Detected (NotDetected) Parainfluenza 2 (PCR) Not Detected (NotDetected) Parainfluenza 3 (PCR) Not Detected (NotDetected) Parainfluenza 4 (PCR) Not Detected (NotDetected) RSV (PCR) Not Detected (NotDetected) Entero/Rhino (PCR) Not Detected (NotDetected) Blood Type O Positive Antibody Screen NEGATIVE Crossmatch See Detail 02/10/24 Range/Units 19:51 WBC (4.8-10.8) K/ul RBC (4.20-5.40) M/uL Hgb (12.0-16.0) g/dl Hct (37.0-47.0) % MCV (80.0-100.0) fL MCH (25.0-34.0) pg MCHC (32.0-36.0) g/dL RDW Std Deviation (36.4-46.3) fL RDW Coeff of Marcos (11.5-14.5) % Plt Count (130-400) K/uL MPV (9.4-12.4) fL Immature Gran % (Auto) % Neut % (Auto) % Lymph % (Auto) % Early % (Auto) % Eos % (Auto) % Baso % (Auto) % Neut # (Auto) (1.40-6.50) K/uL Lymph # (Auto) (1.20-3.40) K/uL Early # (Auto) (0.11-0.59) K/uL Eos # (Auto) (0.00-0.50) K/uL Baso # (Auto) (0.00-0.20) K/uL Immature Gran # (Auto) (0.01-0.20) K/uL PT (9.0-12.0) Seconds INR (0.9-1.1) APTT (21-31) Seconds PTT Ratio Sodium (136-145) mmol/L Potassium (3.5-5.1) mmol/L Chloride (98-107) mmol/L Carbon Dioxide (21-32) mmol/L Anion Gap (3-11) BUN (6-23) mg/dl Creatinine (0.6-1.2) mg/dl Est Cr Clr Drug Dosing Est GFR ( Amer) ml/min Est GFR (Non-Af Amer) ml/min BUN/Creatinine Ratio (10-20) Glucose (70-99(Fasting)) mg/dl Lactate (0.4-2.0) mmol/L Calcium (8.6-10.3) mg/dl Total Bilirubin (0.2-1.0) mg/dl AST (13-39) U/L ALT (7-52) U/L Alkaline Phosphatase (34-104) U/L Troponin I High Sens (0-14) pg/ml B-Natriuretic Peptide 79 (0-100) pg/ml Total Protein (6.0-8.3) gm/dl Albumin (3.4-5.0) gm/dl Globulin (2.5-4.0) gm/dl Albumin/Globulin Ratio (0.9-2) Lipase (11-82) U/L HCG, Qual (Negative) Adenovirus (PCR) (NotDetected) B. pertussis DNA (PCR) (NotDetected) B.parapertussis DNA PCR (NotDetected) C. pneumoniae DNA (PCR) (NotDetected) Coronavirus OC43 (PCR) (NotDetected) Coronavirus HKU1 (PCR) (NotDetected) Coronavirus 229E (PCR) (NotDetected) SARS-CoV-2 (PCR) (NotDetected) Coronavirus NL63 (PCR) (NotDetected) Human Metapneumovir PCR (NotDetected) Influenza Type A (PCR) (NotDetected) Influenza Type B (PCR) (NotDetected) M. pneumoniae (PCR) (NotDetected) Parainfluenza 1 (PCR) (NotDetected) Parainfluenza 2 (PCR) (NotDetected) Parainfluenza 3 (PCR) (NotDetected) Parainfluenza 4 (PCR) (NotDetected) RSV (PCR) (NotDetected) Entero/Rhino (PCR) (NotDetected) Blood Type Antibody Screen Crossmatch Administered Medications Cefepime HCl 2,000 mg/ Syringe 20 mls @ 5 mls/min IV Q12H DARIUS; Protocol Stop: 02/12/24 21:59 Last Admin: 02/10/24 22:30 Dose: 5 mls/min Documented By: DANIEL Vancomycin HCl 1,750 mg/ (Sodium Chloride) 535 mls @ 200 mls/hr IV NOW ONE Stop: 02/11/24 00:40 Last Admin: 02/10/24 22:37 Dose: 200 mls/hr Documented By: DANIEL Insulin Aspart (Insulin Aspart Per Unit Charge) 0 units SC ACHS DARIUS Stop: 03/11/24 21:48 Last Admin: 02/10/24 22:21 Dose: Not Given Documented By: DANIEL Lorazepam (Lorazepam 1 Mg Tab) 1 mg PO HS PRN PRN Reason: panic attacks/severe anxiety Stop: 03/11/24 21:48 Last Admin: 02/10/24 22:29 Dose: 1 mg Documented By: DANIEL Discontinued Medications Acetaminophen (Acetaminophen 325 Mg Tab) Confirm Administered Dose 650 mg .ROUTE .STK-MED ONE Stop: 02/10/24 20:34 Last Admin: 02/10/24 20:34 Dose: 650 mg Documented By: EKATERINA Furosemide (Furosemide 40 Mg/4 Ml Vial) 40 mg IV ONE ONE Stop: 02/10/24 20:15 Last Admin: 02/10/24 20:26 Dose: 40 mg Documented By: EKATERINA Ioversol (Optiray 320 125ml) 116 ml IV ONCE ONE Stop: 02/10/24 21:20 Last Admin: 02/10/24 21:19 Dose: 116 ml Documented By: Readz Imaging Data Radiologist's Impression: Chest X-Ray 02/10/24 16:44 XR chest 1V portable HISTORY: Chest pain, nonspecific COMPARISON: Chest 01/26/2024. FINDINGS: No pneumothorax. A large right pleural effusion is again noted. This remains unchanged. This results in mass effect with left mediastinal shift. This has progressed in the interval. The heart is stable in size. A left subclavian Port-A-Cath terminates in the SVC. No acute fractures. Lymphadenopathy, pleural masses, and pulmonary lesions are better evaluated on the recent chest CT. Right basilar densities persist. This favors atelectasis from the pleural effusion. IMPRESSION: 1. A large right pleural effusion with interval development of mass effect along the mediastinum resulting in left mediastinal shift. This has progressed in the interval. Consider right-sided thoracentesis for decompression. 2. The lymphadenopathy, pleural masses, pulmonary lesions are better evaluated on the prior chest CT. ACT 112: Negative or not required by law. Electronically signed by: Romaine Tripp M.D. 02/10/2024 5:29 PM Chest CTA 02/10/24 19:05 Exam(s): CTA CHEST IV Amt: 116 cc opti 320 EXAM: CT Angiography Chest With Intravenous Contrast CLINICAL HISTORY: Reason for exam: PE. TECHNIQUE: Axial computed tomographic angiography images of the chest with intravenous contrast. CTDI is 280.7 mGy and DLP is 705.35 mGy-cm. Automated exposure control was utilized for the study. A dose lowering technique was utilized adhering to the principles of ALARA. MIP reconstructed images were created and reviewed. COMPARISON: 01/15/2024 FINDINGS: Pulmonary arteries: No pulmonary embolism. Aorta: No acute findings. Normal caliber. No dissection. Lungs: Interval increase in size of the large mass which now fills the majority of the right hemithorax measuring up to 20.7 x 15.4 x 16.5 cm. There is shift of the mediastinal structures and heart into the left hemithorax. Additional scattered pulmonary nodules within the lungs. No convincing evidence of pneumonia. Pleural space: Unremarkable. Heart: Shifted into the left hemithorax. Bones/joints: No acute fracture. Soft tissues: Unremarkable. Lymph nodes: Unremarkable. IMPRESSION: 1. No pulmonary embolism. 2. Interval increase in size of the large mass which now fills the majority of the right hemithorax measuring up to 20.7 x 15.4 x 16.5 cm. There is shift of the mediastinal structures and heart into the left hemithorax. 3. Additional scattered pulmonary nodules within the lungs. Electronically signed by: Kunal Salinas MD 02/10/24 22:44 PM Discharge Plan Visit Data Chief Complaint: Chest Pain Stated Complaint: CHEST PAIN ED Provider: Rosales Oviedo Discharge Problem: Pleural effusion Patient Disposition: Admitted As Inpatient Discharge Instructions Interventions: ED Discharge Assessment Last Done: 02/10/24 21:24
[2024-02-11 00:11] LABS: Hematocrit (blood only) 22.8 % (37.0-47.0); Hemoglobin 7.2 g/dl (12.0-16.0)
[2024-02-11] MEDS: VANCOMYCIN HCL 1,250 MG in SODIUM CHLORIDE 0.9% 250 ML IV SCH (08:11)
[2024-02-11] MEDS: FLUTICASONE FUROATE 100MCG 14 PUFFS/INHALER INH SCH (08:11)
--- OUTSIDE RECORDS SUMMARY | 2024-02-11 08:23 | External Medical Summary | Summary of Care ---
Author Name Unknown Organization [facility] Address [address] [place] [address] Phone [phone] Care Team Providers Care Food Service Clerk Name Role Phone Riya Zelaya MD Primary Care Provider [phone] Reason for Visit * Reason Comments Follow Up After Install port. Encounter Details Date Type Department Care Team (Late st Contact Info) Description 02/09/2024 10:30 AM EDT Office Visit General Surgery, [facility] [address] [place] [id number] Kameron Dorman MD [address] [place] [id number] Postop check* Allergies Active Allergy Reactions Criticality Noted Date Comments Penicillins 01/04/2024 Sulfa Antibiotics 01/04/2024 documented as of this encounter (statuses as of 02/09/2024) Medications Medication Sig Dispensed Refills Start Date [...] Pain, Moderate. 20 Tablet 0 01/13/2024 Active documented as of this encounter (statuses as of 02/09/2024) Active Problems Problem Noted Date Diagnosed Date Pleural effusion 01/13/2024 Mass of right lung 12/31/2023 Uncomplicated asthma 12/31/2023 Prediabetes 12/31/2023 HTN, goal below 130/80 12/31/2023 Stage 3b chronic kidney disease 12/31/2023 Dyslipidemia 12/31/2023 Lymph node enlargement 12/31/2023 Hemothorax on right 12/30/2023 documented as of this encounter (statuses as of 02/09/2024) Resolved Problems Problem Noted Date Diagnosed Date Resolved Date Acute hypoxic respiratory failure 12/31/2023 01/13/2024 documented as of this encounter (statuses as of 02/09/2024) Social History Tobacco Use Types Packs/Day Years Used Date Smoking Tobacco: Never Smokeless Tobacco: Never Tobacco Cessation:Counseling Given: Not Answered Sex and Gender Information Value Date Recorded Sex Assigned at Not on file Gender Identity Not on file Sexual Orientation Not on file Job Start Date Occupation Industry Not on file Not on file Not on file documented as of this encounter Last Filed Vital Signs Vital Sign Reading Time Taken Comments Blood Pressure - - Pulse - - Temperature 36.6 C (97.9 F) 02/09/2024 10:23 AM E DT Respiratory Rate - - Oxygen Saturation - - Inhaled Oxygen Concentration - - Weight - - Height - - Body Mass Index - - documented in this encounter Functional Status Functional [...] (15 years old or older) No 12/31/19 24 Cognitive Status Response Date of Assessm ent Because of a physical, menta l, or emotional condition, do you have serious difficulty concentrating, remembering, or making decisions? (5 years old or older) No 12/31/2023 documented as of this encounter Progress Notes * Kameron Dorman MD - 02/09/2024 10:37 AM EDT Returns 2 weeks status post placement of access port in the left subclavian vein. She is doing quite well. She denies any pain or tenderness. She started chemo last week. On exam the incision is healing well without erythema discharge She is doing quite well. She will follow up p.r.n.. She will call with any new or concerning symptoms in the meantime. documented in this encounter Nursing Notes * Jimena Siddiqi MED ASSIST - 02/09/2024 10:25 AM EDT Chief Complaint Patient presents with Follow Up After Install port. Verified patient. documented in this encounter Plan of Treatment Health Maintenance Due Date Last Done Comments Lipid Panel 1957 HbA1c 1965 Depression Screening 1969 Albumin/Creatinine Ratio 1975 Hepatitis C Screening 1975 Mammogram 1997 Cologuard 2002 Colonoscopy 2002 Colorectal Cancer Screening 2002 Fecal Occult Blood Test 2002 Sigmoidoscopy 2002 DXA Scan 2022 *SPIROMETRY ONCE FOR ASTHMA-ADULT 01/26/2024 GFR 07/15/2024 01/13/2024, 12/16, 01/11/2024, Additional history exists CKD HGB USE SMARTSET 53382 01/12/202501/12, 01/12/2024, 01/11/2024, Additional history exists CKD PHOS USE SMARTSET 24851 01/12/2025 03/0 11/2023, 01/12/2024, 01/11/2024, Additional history exists DTaP,Tdap,and Td Vaccines [...] Not on filedocumented as of this encounter Visit Diagnoses Diagnosis Postop check- Primary Follow-up examination, following unspecified surgery documented in this encounter Advance Directives Latest Code Status on File Code Status Date Activated Date Inactivated Comments Full Code 12/31/2023 12:19 PM 01/13/2024 10:18 PM This order reflects the patients wishes and were consensually agreed upon. Question Answer Comments Discussion of Advance Directives occurred with: Patient Care Teams Food Service Clerk Relationship Specialty Start Date End Date Riya Zelaya MD [address] [place] [address] [place] [id number] PCP - General Family Medicine 10/14/23 documented as of this encounter
[2024-02-11 08:24] LABS: Albumin Globulin Ratio 0.9 (0.9-2); Albumin Level 2.9 gm/dl (3.4-5.0); Bilirubin,Total 0.7 mg/dl (0.2-1.0); Calcium 8.2 mg/dl (8.6-10.3); Creatinine Clr Calc Pharmacy 43.9 ml/min; Est GFR (African American) 46.5 ml/min; Est GFR (Non-African American) 40.1 ml/min; Globulin 3.2 gm/dl (2.5-4.0); Potassium 4.3 mmol/L (3.5-5.1); Total Protein 6.1 gm/dl (6.0-8.3)
[2024-02-11 08:43] LABS: Appearance Urine Clear (Clear); Bacteria Urine Automated Negative (Negative); Bilirubin Urine Negative (Negative); Blood Urine Negative (Negative); Color Urine Yellow; Epithelial Cell Urine Auto >30 /lpf (0-5); Glucose Urine UA Negative (Negative); Ketones Urine Negative (Negative); Leukocyte Esterase Urine Negative (Negative); Nitrite Urine Negative (Negative); Protein Urine Trace (Negative); RBC Urine Automated 0-4 /hpf (0-4); Specific Gravity Urine > 1.045 (1.000-1.030); Urobilinogen Urine Negative (Negative)
[2024-02-11] MEDS ORDERED: LANTUS PER UNIT CHARGE SQ SCH (09:00)
[2024-02-11 09:52] LABS: Mean Corpuscular Hemoglobin 28.6 pg (25.0-34.0); Mean Corpuscular Hgb Conc 31.8 g/dL (32.0-36.0); Mean Corpuscular Volume 89.8 fL (80.0-100.0); Mean Platelet Volume 9.9 fL (9.4-12.4); Platelet Count 98 K/uL (130-400); RDW Coefficient of Variation 15.9 % (11.5-14.5); RDW Standard Deviation 52.7 fL (36.4-46.3); Red Blood Count 2.45 M/uL (4.20-5.40); White Blood Count 0.71 K/ul (4.8-10.8)
[2024-02-11 09:59] LABS: RBC Morphology Unremarkable
[2024-02-11 10:00] LABS: Basophils # (auto) 0.01 K/uL (0.00-0.20); Basophils % (auto) 1.4 %; Eosinophils # (auto) 0.05 K/uL (0.00-0.50); Immature Granulocytes # (auto) 0.01 K/uL (0.01-0.20); Immature Granulocytes % (auto) 1.4 %; Lymphocytes # (auto) 0.47 K/uL (1.20-3.40); Lymphocytes % (auto) 66.2 %; Monocytes # (auto) 0.16 K/uL (0.11-0.59); Monocytes % (auto) 22.5 %; Neutrophils # (auto) 0.01 K/uL (1.40-6.50); Neutrophils % (auto) 1.5 %
[2024-02-11] MEDS: ALBUT/IPRATROP 3MG/0.5MG NEB 3 ML VIAL NEB SCH (10:01)
--- NOTE | 2024-02-11 10:03 | Pharmacy Report ---
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 Broad spectrum antibiotics initiated empirically for febrile neutropenia. * Blood sugars well-controlled thus far, ranging 96-128 mg/dL * Will utilize conservative initial insulin regimen PLAN FOR INPATIENT GLYCEMIC CONTROL: * Hold outpatient oral diabetes medications * Basal insulin * hold * Bolus insulin * NovoLog per scale ACHS or Q6hrs while NPO * Goal Range: Low 110 mg/dL - High 140 mg/dL * Correction Factor: 35 mg/dL/unit * Nutritional / Prandial insulin per carb ratio of 1 unit per 15 grams CHO consumed
--- NOTE | 2024-02-11 11:17 | Pulmonary Consultation ---
Date of Consultation February 11, 2024 Assessment & Plan (1) Pleural effusion: (2) Spindle cell carcinoma: (3) Shortness of breath: (4) Acute hypoxic respiratory failure: (5) Asthma: (6) Pancytopenia: (7) Neutropenia: Plan CT chest 02/10/2024 personally reviewed: Large right hilar mass with right-sided pleural effusion Mediastinal shift to the left No significant mediastinal lymphadenopathy -- Right-sided pleural effusion Likely from underlying malignancy Patient has the tumor which oozes blood. It has led to complicated right-sided pleural effusion Taking the fluid out or putting the chest tube I do not think will make any difference in patient's shortness of breath as the mass will still be there --Spindle cell carcinoma of the thorax S/p IR guided biopsy done well Patient underwent VATS at [place] as well where they found significant blood and was not able to get the diagnosis this was followed by IR guided biopsy over there which ultimately gave the diagnosis of spindle cell S/p EBUS 12/30/2023 MRI of the brain was negative for definite evidence of intracranial metastatic disease. --History of lung cancer mother was a non-smoker History of colon cancer in mother Plan: Will do a bedside ultrasound to see how the fluid looks like right now I did state the patient that doing any procedures like thoracentesis or chest tube would not help with her breathing. Will start the patient on hypertonic saline nebulized to help her bring up the phlegm. Follow sputum culture Okay to continue with antibiotics given the neutropenia and rash Overall prognosis of the patient is grave. I do think goals of care especially regarding intubation should be discussed as intubating the patient in future will not be appropriate. Please note the above document was generated using voice recognition software. It may contain grammatical, syntax or spelling errors.Any formal questions or concerns about the content, text or information contained within the body of this dictation should be directly addressed to the provider for clarification. 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 She was in mild respiratory distress. She stated that she has finished 1 cycle of chemotherapy. Denies any fever or chills Did complain of some rash which started in bilateral ventral medial surfaces of the arm as well as shins. It is blanching. Has been complaining of cough with difficulty bringing it up. Denies any hemoptysis No nausea or vomiting. No dysuria, no diarrhea. Social history: Lifetime non-smoker. 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 History of lung cancer mother was a non-smoker History of colon cancer in mother Allergies Allergy/AdvReac Type Severity Reaction Status Date / Time adhesive Allergy Mild Rash Verified 02/10/24 18:10 Penicillins Allergy Unknown "Strong Verified 02/10/24 18:10 family history"- never used Sulfa (Sulfonamide AdvReac Severe Severe N/V Verified 02/10/24 18:10 Antibiotics) oxycodone [From Percocet] AdvReac Intermediate Palpitations, Verified 02/10/24 18:10 "felt like I was on speed" soap AdvReac Unknown "President Celebrity Acquistion Verified 02/10/24 18:10 & scented soap" - unknown rxn Home Medications Medication Instructions Recorded Confirmed Type acetaminophen 650 mg 0 mg PO DIRECTED PRN Pain 06/22/19 02/10/24 History tablet,extended release (Tylenol Arthritis Pain) fenofibrate micronized 43 mg 43 mg PO DAILY #90 caps 07/13/23 02/10/24 Rx capsule rosuvastatin 40 mg tablet 40 mg PO DAILY #90 tabs 07/13/23 02/10/24 Rx albuterol sulfate 90 mcg/actuation 1 puff inhalation Q6H PRN SOB #8.5 09/29/23 02/10/24 Rx aerosol inhaler (ProAir HFA) grams fluticasone propionate 44 0 puff inhalation BID 12/27/23 02/10/24 History mcg/actuation HFA aerosol inhaler metformin 500 mg tablet 500 mg PO DAILY #90 tabs 01/04/24 02/10/24 Rx guaifenesin 600 mg tablet, 1,200 mg (2 x 600 mg) PO Q12 #0 01/22/24 02/10/24 Rx extended release 12 hr (Mucinex) tabs empagliflozin 10 mg tablet 10 mg PO DAILY #30 tabs 01/24/24 02/10/24 Rx (Jardiance) pantoprazole 40 mg tablet,delayed 40 mg PO DAILY #90 tabs 02/01/24 02/10/24 Rx release levofloxacin 500 mg tablet 500 mg PO DAILY 02/10/24 02/10/24 History Patient History Medical History Diabetes Dyslipidemia History of recent blood transfusion 01/2024 [facility] On home oxygen therapy 2 lpm via NC, PRN during day, continuous HS Poor historian Spindle cell carcinoma of thorax Recent dx Anxiety Right lower lobe lung mass Pleural effusion Right, suspected malignant- 12/2023 Multiple pulmonary nodules [facility]EW[facility] (acute kidney injury) Hx Psoriasis Stage 3b chronic kidney disease (CKD) Osteopenia Hypertension Arthritis Asthma Recent exacerbation and hospitalization at [facility] in setting of RSV (01/2024) Obesity Encephalitis Hx age 9, paralyzed x 1 year, no residual issues Ureterolithiasis Hx Kidney stones Surgical History History of lung biopsy Philippe Chase 01/2024 S/P thoracostomy tube placement VATS with biopsies + chest tube placement - 12/2023 - [facility] History of incision and drainage incision and drainage of left axillary abscess Dr. Gil 12/04/20 +MRSA History of difficult intubation cystoscopy, right ureteroscopy, stent placement: 06/22/19: Elective glidescope #3 grade view 1 at [facility] History of tonsillectomy History of lithotripsy History of cystoscopy with stent History of foot surgery Right H/O knee surgery R/L History of ankle surgery Left Family History Father Hypertension Hx of CABG Sister Hypertension Colorectal cancer Mother Colorectal cancer Stroke Aunt Myocardial infarction maternal Denies family history of Ovarian cancer Prostate cancer Breast cancer Social History Smoking Status: Never smoker Second Hand Exposure: No; Do You Dip or Chew Tobacco: No; Hx Alcohol Use: No Hx Substance Use: No Preferred Language: Ukrainian Communication Ability: Effective Visual Impairment: No Limitations Kaiako Kura [place] Required: No Beliefs That Will Affect Care: None marital status: Single Current Living Situation: Family Current Living Situation Comment: Lives with her twin sisterTeetee 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al status: retired 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: worked in [employer] at [employer] How many Children do You have: 0 Other Information That Helps Us Care for You: No Feels Safe at Home: Yes Safety Concerns: Feels Safe At This Time Childhood Exposure to Second-Hand Smoke: No Diet: regular caffeine: Yes (1 cup of tea approx 2x a week) Dental Care, Regularly: Yes Physical Activity Frequency: Daily Physical Activity Frequency Comment: walk Seatbelt Use: always Sunscreen Use: Yes Assistive Devices: Glasses, Oxygen - Continuous and Walker Review of Systems 2 Review of Systems: All systems reviewed & are unremarkable except as noted in HPI & below Physical Exam 2 Physical Exam: Constitutional: In respiratory distress HEENT: EOMI, PERRLA Respiratory system: Decreased air entry on the right side, no wheeze, no rhonchi, mild crackles bilateral lower lobes CVS: S1-S2 positive, no murmurs or gallops Abdomen: Soft, nontender, nondistended, positive bowel sounds x4, obese Extremities: +2 pulses bilaterally radialis/ dorsalis pedis, no cyanosis, no edema Neuro: Awake alert oriented x3 Psych: Normal mood and affect G/U: No Jackson Skin: Macular rash appreciated bilateral ventral medial surface of the arm going into the forearm, minimal petechial rash appreciated bilateral sahni Lymphatic: no cervical or axillary lymphadenopathy Results & Data Results & Data Vital Signs (Past 12 Hours) Vital Signs Temp Pulse Pulse Resp BP Pulse Ox O2 Del Method 02/11/24 09:59 99 H 36 H 97 Nasal Cannula 02/11/24 08:28 Nasal Cannula 02/11/24 07:19 36.7 C 89 24 134/70 97 Nasal Cannula 02/11/24 07:00 87 02/11/24 02:34 36.8 C 88 20 144/62 H 98 Nasal Cannula O2 Flow Rate 02/11/24 09:59 1 02/11/24 08:28 3 02/11/24 07:19 2 02/11/24 07:00 02/11/24 02:34 Laboratory Results 02/11/24 07:41 02/11/24 07:41 PG Care Time/CCT Total # of Minutes Spent Total Time Spent with Patient: Total time spent is greater than 50% in coordination of care (as documented) at patient's floor/unit and/or counseling patient: Coding Level of Care Code 77013 INT INP/OBS CARE 3/75MIN Diagnoses Pleural effusion J90 Spindle cell carcinoma C80.1 Shortness of breath R06.02 Acute hypoxic respiratory failure J96.01 Asthma J45.909 Pancytopenia D61.818 Neutropenia D70.9
--- NOTE | 2024-02-11 11:42 | Pharmacy Report ---
Pharmacy PK ABX Note - Date of Service February 11, 2024 - Assessment and Plan Assessment 68 year old F receiving vancomycin and cefepime empirically for neutropenic fever . Sputum and bcxs pending. Day # 1 of antimicrobial therapy. Plan Vancomycin * Loading dose: 1750 mg IV x 1 (administered last evening) * Maintenance dose: 1000 mg IV every 24 hours * Regimen is predicted to achieve target AUC/WENDIE of 400-600 mg/L.hr * Random level will be ordered if therapy continued past current 48 hour duration. Pharmacy will continue to follow and will adjust dose/frequency as necessary. Thank you. Pharmacy has transitioned to AUC monitoring for vancomycin. AUC/WENDIE is the preferred PK/PD target and is associated with decreased risk of nephrotoxicity compared to traditional trough targets.
[2024-02-11] MEDS: ACETAMINOPHEN 325 MG TAB PO PRN (12:05)
[2024-02-11] MEDS: BENZONATATE 100 MG CAPSULE PO PRN (14:05)
--- NOTE | 2024-02-11 14:52 | Hospitalist Progress Note ---
Date of Service February 11, 2024 Assessment & Plan (1) Spindle cell carcinoma: Plan: Spindle cell carcinoma, with associated pleural effusion, neutropenia With history of bronchoscopy, s/p VATSAnd hemothorax evacuation 01/04/2024 at [facility] [place] Undergoing chemotherapy with [facility]. Port was placed 01/24, no overlying erythema/warmth/tenderness Cancer is bigger and advancing further despite chemotherapy. Spoke to oncologist, Dr. Kulkarni who states that her prognosis is poor. Oncology consulted officially Spoke to the patient about her prognosis. Spoke to the sister at the bedside as well as another sister on the phone. Patient has changed her CODE STATUS to DNR/DNI They are now considering comfort directed measures but do not have a final decision yet. We will discuss with the family and get back to me with an answer. In the meantime, I will continue IV antibiotics (vancomycin and cefepime) in the setting of neutropenia, fever and cancer. (2) Acute hypoxic respiratory failure: Plan: Hypoxic respiratory failure With history of malignancy/exudative/hemorrhagic effusion, 2 L oxygen home oxygen requirement. CTA showed that the the mass in her chest has enlarged and now feels the majority of the right hemithorax, shifting the mediastinal structures and heart into the left hemithorax Pulmonary consulted Patient is now DNR/DNI Ordered a dose of Ativan as the patient is anxious (3) Anemia: Plan: Acute on chronic anemia Hemoglobin 6.4, last 7.8. Patient was 6.8 on 01/16/2024 and improved with 1 unit of transfusion with subsequent slow downtrend. No evidence of active bleeding 40 units IV Lasix was given with 1 unit blood transfusion Suspect AoCD, tsat%, b12, folate normal 01/2024. - Transfuse for threshold of 7.0 (4) Stage 3b chronic kidney disease (CKD): Plan: Prerenal azotemia, CKD Baseline creatinine approximately 1.2, creatinine on admission 1.25. Currently creatinine is 1.37 Estimated GFR 44, renally dose medications as needed Trend BMP daily - Clinically volume (5) Diabetes: Plan: DM2 Empagliflozin/metformin held, switch to basal bolus insulin while inpatient, dose reduced due to renal function. Pharmacy consulted - Lantus 8u BID dose reduced to 5u BID, CF 50, CR 25. - Goal bsg 110-150 (6) Rash: Plan: Blanching macular rash across her low abdomen, proximal thighs, somewhat on the chest and sparing the distal forearms. Nonpruritic, nontender. Without sharp demarcation Patient has been on Levaquin has multiple antibiotic allergies and has not been on a fluoroquinolone before to her knowledge. New medications include chemotherapy, promethazine for nausea, and the Levaquin. Levaquin was complete this morning, no additional doses given. Promethazine held, will switch to Zofran. Continue to monitor. No airway swelling or evidence of angioedema/anaphylaxis Plan DVT prophylaxis: Pharmacoprophylaxis deferred pending hemoglobin stability while undergoing transfusion, SCDs on admission if hemoglobin with appropriate rise in stable and no signs of active bleeding, had heparin subcu for thromboprophylaxis. Increased risk with underlying malignancy Diet: DM 2 Disposition: PCU CODE STATUS: Changed to DNR/DNI after speaking to the patient and family. Admission and Anticipated Discharge Date Admission Date: February 10, 2024 Subjective Patient is tearful, anxious. She is accompanied by her twin sister, Teetee at the bedside. She was informed that her cancer is getting worse and bigger. Review of Systems Review of Systems: All systems reviewed & are unremarkable except as noted in Subjective Physical Exam Physical Exam: General: Awake, conversant. Noted to be coughing. Heart: S1, S2/regular rate and rhythm, no murmur rubs or gallops Lungs: Decreased air entry in the right side. Normal effort Abdomen: Soft/nontender/nondistended. No hepatosplenomegaly Extremities: No clubbing/cyanosis. No edema Behavior: Appropriate, cooperative Results & Data Results & Data Vital Signs (Past 12 Hours) Vital Signs Temp Pulse Pulse Resp BP Pulse Ox O2 Del Method 02/11/24 11:11 96 H 24 126/57 L 97 Nasal Cannula 02/11/24 09:59 99 H 36 H 97 Nasal Cannula 02/11/24 08:28 Nasal Cannula 02/11/24 07:19 36.7 C 89 24 134/70 97 Nasal Cannula 02/11/24 07:00 87 O2 Flow Rate 02/11/24 11:11 02/11/24 09:59 1 02/11/24 08:28 3 02/11/24 07:19 2 02/11/24 07:00 Laboratory Results Abnormal lab results 02/10/24 02/10/24 02/10/24 Range/Units 16:54 18:06 22:11 WBC 0.51 L* (4.8-10.8) K/ul RBC 2.23 L (4.20-5.40) M/uL Hgb 6.4 L* (12.0-16.0) g/dl Hct 21.3 L (37.0-47.0) % MCHC 30.0 L (32.0-36.0) g/dL RDW Std Deviation 50.4 H (36.4-46.3) fL RDW Coeff of Marcos (11.5-14.5) % Plt Count 117 L (130-400) K/uL Neut # (Auto) 0.04 L* (1.40-6.50) K/uL Lymph # (Auto) 0.34 L (1.20-3.40) K/uL [place] # (Auto) 0.07 L (0.11-0.59) K/uL PT 12.4 H (9.0-12.0) Seconds Chloride 111 H (98-107) mmol/L BUN 33 H (6-23) mg/dl Creatinine 1.25 H (0.6-1.2) mg/dl BUN/Creatinine Ratio 26.4 H (10-20) Glucose 118 H (70-99(Fasting)) mg/dl POC Glucose 128 H (70-99) mg/dl Calcium (8.6-10.3) mg/dl AST (13-39) U/L Alkaline Phosphatase 105 H (34-104) U/L Albumin 3.0 L (3.4-5.0) gm/dl Ur Specific [place] (1.000-1.030) Urine Protein (Negative) U Epithel Cells (Auto) (0-5) /lpf Crossmatch See Detail 02/10/24 02/11/24 02/11/24 Range/Units 23:50 07:41 08:20 WBC 0.71 L* (4.8-10.8) K/ul RBC 2.45 L (4.20-5.40) M/uL Hgb 7.2 L 7.0 L (12.0-16.0) g/dl Hct 22.8 L 22.0 L (37.0-47.0) % MCHC 31.8 L (32.0-36.0) g/dL RDW Std Deviation 52.7 H (36.4-46.3) fL RDW Coeff of Marcos 15.9 H (11.5-14.5) % Plt Count 98 L (130-400) K/uL Neut # (Auto) 0.01 L* (1.40-6.50) K/uL Lymph # (Auto) 0.47 L (1.20-3.40) K/uL [place] # (Auto) (0.11-0.59) K/uL PT (9.0-12.0) Seconds Chloride 111 H (98-107) mmol/L BUN 37 H (6-23) mg/dl Creatinine 1.37 H (0.6-1.2) mg/dl BUN/Creatinine Ratio 27.0 H (10-20) Glucose (70-99(Fasting)) mg/dl POC Glucose (70-99) mg/dl Calcium 8.2 L (8.6-10.3) mg/dl AST 11 L (13-39) U/L Alkaline Phosphatase (34-104) U/L Albumin 2.9 L (3.4-5.0) gm/dl Ur Specific [place] > 1.045 H (1.000-1.030) Urine Protein Trace H (Negative) U Epithel Cells (Auto) >30 H (0-5) /lpf Crossmatch PG Care Time/CCT Total # of Minutes Spent Total Time Spent with Patient: Total time spent is greater than 50% in coordination of care (as documented) at patient's floor/unit and/or counseling patient: Coding Level of Care Code 18771 SUB INP/OBS CARE 2/35MIN Diagnoses Spindle cell carcinoma C80.1 Acute hypoxic respiratory failure J96.01 Anemia D64.9 Stage 3b chronic kidney disease (CKD) N18.32 Diabetes E11.9 Rash R21
[2024-02-11] MEDS: LORazepam 0.5 MG TAB PO STA (15:11)
--- NOTE | 2024-02-11 15:32 | Procedure Note ---
Procedure Note Date of Service February 11, 2024 Note Bedside Ultrasound: Lung: Right:-Severely loculated right-sided effusion posteriorly as well as anteriorly Left:-No pleural effusion, B-lines posteriorly Patient not examined due to coronavirus restrictions and attempts to minimize exposure to staff and consider PPE. Please refer to the hospitalist exam for complete details. Coding CPT Codes Pulmonary/Thoracic - Pulmonary and Thoracic: 81845 US, Chest, real time with imaging documentation ([id number]) [facility] [place] Procedure Codes (Charges) Pulmonary/Thoracic Procedure 1: Pulmonary and Thoracic: 18804 US, Chest, real time with imaging documentation
[2024-02-11] MEDS ORDERED: ARFORMOTEROL TART 15MCG/2ML VIAL INH SCH (19:00)
[2024-02-11] MEDS: SODIUM CHLOR 7% 4 ML NEB NEB SCH (19:33)
[2024-02-11] MEDS: BUDESONIDE 0.25 MG/2 ML VIAL (PULMICORT) NEB SCH (19:33)
[2024-02-11] MEDS: FORMOTEROL 20 MCG/2 ML VIAL INH SCH (19:34)
--- NOTE | 2024-02-12 07:13 | Pulmonology Progress Note ---
Date of Service February 12, 2024 Assessment & Plan (1) Pleural effusion: (2) Spindle cell carcinoma: (3) Shortness of breath: (4) Acute hypoxic respiratory failure: (5) Asthma: (6) Pancytopenia: (7) Neutropenia: Plan CT chest 02/10/2024 personally reviewed: Large right hilar mass with right-sided pleural effusion Mediastinal shift to the left No significant mediastinal lymphadenopathy -- Right-sided pleural effusion Likely from underlying malignancy Patient has the tumor which oozes blood. It has led to complicated right-sided pleural effusion Taking the fluid out or putting the chest tube I do not think will make any difference in patient's shortness of breath as the mass will still be there Bedside ultrasound 02/11/2024: Significant loculated pleural effusion posteriorly as well as anteriorly. --Spindle cell carcinoma of the thorax S/p IR guided biopsy done well Patient underwent VATS at [facility] as well where they found significant blood and was not able to get the diagnosis this was followed by IR guided biopsy over there which ultimately gave the diagnosis of spindle cell S/p EBUS 12/30/2023 MRI of the brain was negative for definite evidence of intracranial metastatic disease. --History of lung cancer mother was a non-smoker History of colon cancer in mother Plan: Unfortunately patient's underlying lung cancer is very aggressive and progressing Keeping the patient comfortable moving forward should be the goal. I did speak with patient's twin sister, elder sister Leonard who was on the phone. Gave them all the options that patient has. They understand that the prognosis is poor and would wait for palliative and then decide the course. Patient prefers to go home on hospice if need be Ativan 0.5 mg IV every 2 hours as well as morphine 2 mg IV every 2 hours has been added for anxiety and pain Case was discussed with RN at bedside No further recommendation from pulmonary perspective, will sign off Please call directly with any questions Please note the above document was generated using voice recognition software. It may contain grammatical, syntax or spelling errors.Any formal questions or concerns about the content, text or information contained within the body of this dictation should be directly addressed to the provider for clarification. Admission and Anticipated Discharge Date Admission Date: February 10, 2024 Subjective Patient seen and examined at bedside. In mild respiratory distress She was saturating 99% on 1 L nasal cannula. Stated that she did not sleep well last night. She is having different kind of thoughts which might be playing a role Denies any significant pain. Shortness of breath is the same. Has been coughing but not bringing up any phlegm. Has been afebrile. Appetite is poor Review of Systems 2 Review of Systems: All systems reviewed & are unremarkable except as noted in Subjective Physical Exam 2 Physical Exam: Constitutional: In respiratory distress HEENT: EOMI, PERRLA Respiratory system: Decreased air entry on the right side, no wheeze, no rhonchi, mild crackles bilateral lower lobes CVS: S1-S2 positive, no murmurs or gallops Abdomen: Soft, nontender, nondistended, positive bowel sounds x4, obese Extremities: +2 pulses bilaterally radialis/ dorsalis pedis, no cyanosis, no edema Neuro: Awake alert oriented x3 Psych: Normal mood and affect G/U: No Jackson Skin: Macular rash appreciated bilateral ventral medial surface of the arm going into the forearm, minimal petechial rash appreciated bilateral sahni Lymphatic: no cervical or axillary lymphadenopathy Results & Data Results & Data Vital Signs (Past 12 Hours) Vital Signs Temp Pulse Pulse Resp BP Pulse Ox O2 Del Method 02/12/24 02:18 36.7 C 96 H 22 118/69 98 Nasal Cannula 02/11/24 23:00 100 H 02/11/24 23:00 36.9 C 100 H 24 126/60 96 Nasal Cannula 02/11/24 20:40 Nasal Cannula 02/11/24 19:34 103 H 34 H 96 Nasal Cannula O2 Flow Rate 02/12/24 02:18 02/11/24 23:00 02/11/24 23:00 02/11/24 20:40 2 02/11/24 19:34 2 Laboratory Results 02/11/24 07:41 02/11/24 07:41 PG Care Time/CCT Total # of Minutes Spent Total Time Spent with Patient: Total time spent is greater than 50% in coordination of care (as documented) at patient's floor/unit and/or counseling patient: Coding Level of Care Code 85931 SUB INP/OBS CARE 3/50MIN Diagnoses Pleural effusion J90 Spindle cell carcinoma C80.1 Shortness of breath R06.02 Acute hypoxic respiratory failure J96.01 Asthma J45.909 Pancytopenia D61.818 Neutropenia D70.9
[2024-02-12] MEDS: ONDANSETRON INJ 2 MG/ML 2 ML VIAL IV PRN (08:09)
[2024-02-12] MEDS: ONDANSETRON INJ 2 MG/ML 2 ML VIAL ONE (08:13)
[2024-02-12] MEDS: VANCOMYCIN HCL 1,000 MG in SODIUM CHLORIDE 0.9% 250 ML IV SCH (08:18)
[2024-02-12] MEDS: LORazepam 0.5 MG in SYRINGE 0.25 ML IV PRN (08:18)
[2024-02-12 08:39] LABS: BUN Creatinine Ratio 29.7 (10-20); Calcium 8.4 mg/dl (8.6-10.3); Creatinine Clr Calc Pharmacy 43.8 ml/min; Est GFR (African American) 46.1 ml/min; Est GFR (Non-African American) 39.7 ml/min; Potassium 4.2 mmol/L (3.5-5.1)
[2024-02-12 09:42] LABS: Hematocrit (blood only) 21.4 % (37.0-47.0); Hemoglobin 6.8 g/dl (12.0-16.0); Mean Corpuscular Hemoglobin 29.1 pg (25.0-34.0); Mean Corpuscular Hgb Conc 31.8 g/dL (32.0-36.0); Mean Corpuscular Volume 91.5 fL (80.0-100.0); Mean Platelet Volume 9.6 fL (9.4-12.4); Platelet Count 63 K/uL (130-400); RDW Coefficient of Variation 15.8 % (11.5-14.5); RDW Standard Deviation 51.6 fL (36.4-46.3); Red Blood Count 2.34 M/uL (4.20-5.40); White Blood Count 0.85 K/ul (4.8-10.8)
[2024-02-12 09:50] LABS: Dohle Bodies 1+; Polychromasia 1+
[2024-02-12 09:51] LABS: Eosinophils # (auto) 0.03 K/uL (0.00-0.50); Eosinophils % (auto) 3.5 %; Lymphocytes # (auto) 0.56 K/uL (1.20-3.40); Lymphocytes % (auto) 65.9 %; Monocytes # (auto) 0.16 K/uL (0.11-0.59); Monocytes % (auto) 18.8 %; Neutrophils % (auto) 11.8 %
[2024-02-12] MEDS ORDERED: MoRPHine SULFATE 2 MG/ML CARP IV PRN (10:09)
[2024-02-12] MEDS ORDERED: SODIUM CHLORIDE 0.9% 250 ML IV PRN (10:28)
--- NOTE | 2024-02-12 13:26 | Oncology Consultation ---
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 She has not responded at all to cycle 1 day 1 of chemoimmunotherapy. At this point my r ecommendation would be conservative management with supportive care including treatment of underlying neutropenia as well as supplemental oxygen that she is hypoxic. It is unclear whether this is progression of her cancer or pseudo progression because of immunotherapy. Will recommend continued monitoring as well as treatment of underlying issues. (2) Shortness of breath: Continue supplemental oxygen. (3) Pancytopenia: The patient has chemotherapy-induced pancytopenia with significant neutropenia. Continue broad-spectrum antibiotics such as cefepime and vancomycin. Plan I had a lengthy discussion with the patient and her sister. It seems that overall her outlook is not very good. She will within the next days to weeks especially if this turns out to be true progression of her disease. This was made pretty clear to the patient during my initial consultation as well as the visit today given the aggressive nature of her underlying cancer. Medical oncology will continue to follow the patient and make appropriate recommendations. This was discussed with our hospital internal medicine doctor Dr. 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 She was in the clinic last week to get her first cycle of combination chemotherapy/immunotherapy. She got her first cycle of carboplatin, paclitaxel, atezolizumab, bevacizumab on 02/01/2024. A week after she developed significant dyspnea, skin rash for which she was brought to [facility] ER. She had a CT CT chest angiogram performed in the ER which revealed significant progression of her cancer, now encompassing the entire right hemithorax. Medical oncology has been consulted to assist in management of this patient with spindle cell cancer of the right hemithorax with high-grade features. During this time the patient was also noted to be neutropenic and anemic. She was seen 1 unit packed red blood cell blood transfusion. I evaluated her at the bedside where she was significantly dyspneic at rest and her sister was sitting at the bedside. Allergies Allergy/AdvReac Type Severity Reaction Status Date / Time adhesive Allergy Mild Rash Verified 02/10/24 18:10 Penicillins Allergy Unknown "Strong Verified 02/10/24 18:10 family history"- never used Sulfa (Sulfonamide AdvReac Severe Severe N/V Verified 02/10/24 18:10 Antibiotics) oxycodone [From Percocet] AdvReac Intermediate Palpitations, Verified 02/10/24 18:10 "felt like I was on speed" soap AdvReac Unknown "[employer] Team Member Verified 02/10/24 18:10 & scented soap" - unknown rxn Home Medications Medication Instructions Recorded Confirmed Type acetaminophen 650 mg 0 mg PO DIRECTED PRN Pain 06/22/19 02/10/24 History tablet,extended release (Tylenol Arthritis Pain) fenofibrate micronized 43 mg 43 mg PO DAILY #90 caps 07/13/23 02/10/24 Rx capsule rosuvastatin 40 mg tablet 40 mg PO DAILY #90 tabs 07/13/23 02/10/24 Rx albuterol sulfate 90 mcg/actuation 1 puff inhalation Q6H PRN SOB #8.5 09/29/23 02/10/24 Rx aerosol inhaler (ProAir HFA) grams fluticasone propionate 44 0 puff inhalation BID 12/27/23 02/10/24 History mcg/actuation HFA aerosol inhaler metformin 500 mg tablet 500 mg PO DAILY #90 tabs 01/04/24 02/10/24 Rx guaifenesin 600 mg tablet, 1,200 mg (2 x 600 mg) PO Q12 #0 01/22/24 02/10/24 Rx extended release 12 hr (Mucinex) tabs empagliflozin 10 mg tablet 10 mg PO DAILY #30 tabs 01/24/24 02/10/24 Rx (Jardiance) pantoprazole 40 mg tablet,delayed 40 mg PO DAILY #90 tabs 02/01/24 02/10/24 Rx release levofloxacin 500 mg tablet 500 mg PO DAILY 02/10/24 02/10/24 History Patient History Medical History (Updated 02/12/24 @ 13:23 by Addison Kulkarni MD) Spindle cell carcinoma Diabetes Dyslipidemia History of recent blood transfusion 01/2024 [facility] On home oxygen therapy 2 lpm via NC, PRN during day, continuous HS Poor historian Spindle cell carcinoma of thorax Recent dx Anxiety Right lower lobe lung mass Pleural effusion Right, suspected malignant- 12/2023 Multiple pulmonary nodules [facility] (acute kidney injury) Hx Psoriasis Stage 3b chronic kidney disease (CKD) Osteopenia Hypertension Arthritis Asthma Recent exacerbation and hospitalization at [facility] in setting of RSV (01/2024) Obesity Encephalitis Hx age 9, paralyzed x 1 year, 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 Gil 12/04/20 +MRSA History of difficult intubation cystoscopy, right ureteroscopy, stent placement: 06/22/19: Elective glidescope #3 grade view 1 at [facility] History of tonsillectomy History of lithotripsy History of cystoscopy with stent History of foot surgery Right H/O knee surgery R/L History of ankle surgery Left Family History Father Hypertension Hx of CABG Sister Hypertension Colorectal cancer Mother Colorectal cancer Stroke Aunt Myocardial infarction maternal Denies family history of Ovarian cancer Prostate cancer Breast cancer Social History Smoking Status: Never smoker Second Hand Exposure: No; Do You Dip or Chew Tobacco: No; Hx Alcohol Use: No Hx Substance Use: No Preferred Language: Tunisian Communication Ability: Effective Visual Impairment: No Limitations 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 Required: No Beliefs That Will Affect Care: None marital status: Single Current Living Situation: Family Current Living Situation Comment: Lives with her twin sisterTeetee 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al status: retired 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: worked in [employer]'s office at [employer] How many Children do You have: 0 Other Information That Helps Us Care for You: No Feels Safe at Home: Yes Safety Concerns: Feels Safe At This Time Childhood Exposure to Second-Hand Smoke: No Diet: regular caffeine: Yes (1 cup of tea approx 2x a week) Dental Care, Regularly: Yes Physical Activity Frequency: Daily Physical Activity Frequency Comment: walk Seatbelt Use: always Sunscreen Use: Yes Assistive Devices: Glasses, Oxygen - Continuous and Walker Review of Systems Review of Systems: All systems reviewed & are unremarkable except as noted in HPI & below Constitutional: as per Subjective / HPI Eyes: as per Subjective / HPI Ear, Nose, Mouth, Throat: as per Subjective / HPI Respiratory: as per Subjective / HPI Cardiovascular: as per Subjective / HPI Gastrointestinal: as per Subjective / HPI Genitourinary: as per Subjective / HPI Musculoskeletal: as per Subjective / HPI Integumentary: as per Subjective / HPI Neurologic: as per Subjective / HPI Endocrine: as per Subjective / HPI Results & Data Vital Signs (Past 12 Hours) Vital Signs Temp Pulse Pulse Resp BP BP Pulse Ox 02/12/24 13:06 36.4 C L 97 H 30 H 135/63 98 02/12/24 12:36 36.4 C L 96 H 30 H 111/70 98 02/12/24 12:21 36.4 C L 100 H 30 H 124/62 95 02/12/24 12:18 36.4 C L 96 H 32 H 101/46 L 98 02/12/24 12:03 36.4 C L 95 H 32 H 125/71 98 02/12/24 11:51 36.5 C 96 H 30 H 125/61 96 02/12/24 08:00 02/12/24 07:58 36.4 C L 99 H 24 117/72 99 02/12/24 07:23 102 H 34 H 98 02/12/24 07:00 100 H 02/12/24 02:18 36.7 C 96 H 22 118/69 98 O2 Del Method O2 Flow Rate 02/12/24 13:06 2 02/12/24 12:36 2 02/12/24 12:21 2 02/12/24 12:18 02/12/24 12:03 02/12/24 11:51 Nasal Cannula 2 02/12/24 08:00 Nasal Cannula 2 02/12/24 07:58 Nasal Cannula 2 02/12/24 07:23 Nasal Cannula 2 02/12/24 07:00 02/12/24 02:18 Nasal Cannula
--- NOTE | 2024-02-12 13:32 | Hospitalist Progress Note ---
Date of Service February 12, 2024 Assessment & Plan (1) Spindle cell carcinoma: Plan: Spindle cell carcinoma, with associated pleural effusion, neutropenia With history of bronchoscopy, s/p VATSAnd hemothorax evacuation 01/04/2024 at [facility] Undergoing chemotherapy with [facility]. Port was placed 01/24, no overlying erythema/warmth/tenderness Cancer is bigger and advancing further despite chemotherapy. Spoke to oncologist, Dr. Kulkarni who states that her prognosis is poor. Spoke to the patient about her prognosis. Spoke to the sister at the bedside as well as another sister on the phone on 02/10. Patient has changed her CODE STATUS to DNR/DNI They are now considering comfort directed measures but do not have a final decision yet. They will get back to me with an answer hopefully tomorrow In the meantime, I will continue IV antibiotics (vancomycin and cefepime) in the setting of neutropenia, fever and cancer. (2) Acute hypoxic respiratory failure: Plan: Hypoxic respiratory failure With history of malignancy/exudative/hemorrhagic effusion, 2 L oxygen home oxygen requirement. CTA showed that the the mass in her chest has enlarged and now feels the majority of the right hemithorax, shifting the mediastinal structures and heart into the left hemithorax Pulmonary on board Patient is now DNR/DNI Family is leaning towards comfort measures but do not have a decision for me yet Morphine and Ativan has been ordered by pulmonology (3) Anemia: Plan: Acute on chronic anemia Hemoglobin 6.4, last 7.8. Patient was 6.8 on 01/16/2024 and improved with 1 unit of transfusion with subsequent slow downtrend. No evidence of active bleeding 40 units IV Lasix was given with 1 unit blood transfusion Suspect AoCD, tsat%, b12, folate normal 01/2024. - Transfuse for threshold of 7.0 Ordered another unit of blood today (4) Stage 3b chronic kidney disease (CKD): Plan: Prerenal azotemia, CKD Baseline creatinine approximately 1.2, creatinine on admission 1.25. Currently creatinine is 1.37 Estimated GFR 44, renally dose medications as needed Trend BMP daily - Clinically volume (5) Diabetes: Plan: DM2 Empagliflozin/metformin held, switch to basal bolus insulin while inpatient, dose reduced due to renal function. Pharmacy consulted - Lantus 8u BID dose reduced to 5u BID, CF 50, CR 25. - Goal bsg 110-150 (6) Rash: Plan: Blanching macular rash across her low abdomen, proximal thighs, somewhat on the chest and sparing the distal forearms. Nonpruritic, nontender. Without sharp demarcation Patient has been on Levaquin has multiple antibiotic allergies and has not been on a fluoroquinolone before to her knowledge. New medications include chemotherapy, promethazine for nausea, and the Levaquin. Levaquin was complete this morning, no additional doses given. Promethazine held, will switch to Zofran. Continue to monitor. No airway swelling or evidence of angioedema/anaphylaxis Plan DVT prophylaxis: Pharmacoprophylaxis deferred pending hemoglobin stability while undergoing transfusion, SCDs on admission if hemoglobin with appropriate rise in stable and no signs of active bleeding, had heparin subcu for thromboprophylaxis. Increased risk with underlying malignancy Disposition: PCU CODE STATUS: Changed to DNR/DNI after speaking to the patient and family. Admission and Anticipated Discharge Date Admission Date: February 10, 2024 Subjective Patient says that she had a rough night. She has been anxious all night and could not sleep because of her worries. She is slightly short of breath. Cough seems to be better slightly. But she is feeling very weak and tired. Review of Systems Review of Systems: All systems reviewed & are unremarkable except as noted in Subjective Physical Exam Physical Exam: General: Awake, conversant. Appears frail and tired Heart: S1, S2/regular rate and rhythm, no murmur rubs or gallops Lungs: Decreased air entry in the right side. Normal effort Abdomen: Soft/nontender/nondistended. No hepatosplenomegaly Extremities: No clubbing/cyanosis. No edema Behavior: Appropriate, cooperative Results & Data Results & Data Vital Signs (Past 12 Hours) Vital Signs Temp Pulse Pulse Resp BP BP Pulse Ox 02/12/24 13:06 36.4 C L 97 H 30 H 135/63 98 02/12/24 12:36 36.4 C L 96 H 30 H 111/70 98 02/12/24 12:21 36.4 C L 100 H 30 H 124/62 95 02/12/24 12:18 36.4 C L 96 H 32 H 101/46 L 98 02/12/24 12:03 36.4 C L 95 H 32 H 125/71 98 02/12/24 11:51 36.5 C 96 H 30 H 125/61 96 02/12/24 08:00 02/12/24 07:58 36.4 C L 99 H 24 117/72 99 02/12/24 07:23 102 H 34 H 98 02/12/24 07:00 100 H 02/12/24 02:18 36.7 C 96 H 22 118/69 98 O2 Del Method O2 Flow Rate 02/12/24 13:06 2 02/12/24 12:36 2 02/12/24 12:21 2 02/12/24 12:18 02/12/24 12:03 02/12/24 11:51 Nasal Cannula 2 02/12/24 08:00 Nasal Cannula 2 02/12/24 07:58 Nasal Cannula 2 02/12/24 07:23 Nasal Cannula 2 02/12/24 07:00 02/12/24 02:18 Nasal Cannula Laboratory Results Abnormal lab results 02/10/24 02/11/24 02/11/24 Range/Units 18:06 16:03 20:27 WBC (4.8-10.8) K/ul RBC (4.20-5.40) M/uL Hgb (12.0-16.0) g/dl Hct (37.0-47.0) % MCHC (32.0-36.0) g/dL RDW Std Deviation (36.4-46.3) fL RDW Coeff of Marcos (11.5-14.5) % Plt Count (130-400) K/uL Neut # (Auto) (1.40-6.50) K/uL Lymph # (Auto) (1.20-3.40) K/uL Immature Gran # (Auto) (0.01-0.20) K/uL Chloride (98-107) mmol/L BUN (6-23) mg/dl Creatinine (0.6-1.2) mg/dl BUN/Creatinine Ratio (10-20) Glucose (70-99(Fasting)) mg/dl POC Glucose 103 H 107 H (70-99) mg/dl Calcium (8.6-10.3) mg/dl Crossmatch See Detail 02/12/24 02/12/24 02/12/24 Range/Units 07:10 07:51 11:11 WBC 0.85 L* (4.8-10.8) K/ul RBC 2.34 L (4.20-5.40) M/uL Hgb 6.8 L* (12.0-16.0) g/dl Hct 21.4 L (37.0-47.0) % MCHC 31.8 L (32.0-36.0) g/dL RDW Std Deviation 51.6 H (36.4-46.3) fL RDW Coeff of Marcos 15.8 H (11.5-14.5) % Plt Count 63 L (130-400) K/uL Neut # (Auto) 0.10 L* (1.40-6.50) K/uL Lymph # (Auto) 0.56 L (1.20-3.40) K/uL Immature Gran # (Auto) 0.00 L (0.01-0.20) K/uL Chloride 111 H (98-107) mmol/L BUN 41 H (6-23) mg/dl Creatinine 1.38 H (0.6-1.2) mg/dl BUN/Creatinine Ratio 29.7 H (10-20) Glucose 111 H (70-99(Fasting)) mg/dl POC Glucose 126 H 120 H (70-99) mg/dl Calcium 8.4 L (8.6-10.3) mg/dl Crossmatch PG Care Time/CCT Total # of Minutes Spent Total Time Spent with Patient: Total time spent is greater than 50% in coordination of care (as documented) at patient's floor/unit and/or counseling patient: Coding Level of Care Code 51878 SUB INP/OBS CARE 2/35MIN Diagnoses Spindle cell carcinoma C80.1 Acute hypoxic respiratory failure J96.01 Anemia D64.9 Stage 3b chronic kidney disease (CKD) N18.32 Diabetes E11.9 Rash R21
[2024-02-12] MEDS ORDERED: ALBUT/IPRATROP 3MG/0.5MG NEB 3 ML VIAL NEB PRN (20:34)
[2024-02-13 06:30] LABS: Hematocrit (blood only) 21.4 % (37.0-47.0); Hemoglobin 6.5 g/dl (12.0-16.0); Mean Corpuscular Hemoglobin 28.6 pg (25.0-34.0); Mean Corpuscular Hgb Conc 30.4 g/dL (32.0-36.0); Mean Corpuscular Volume 94.3 fL (80.0-100.0); Mean Platelet Volume 10.1 fL (9.4-12.4); Platelet Count 40 K/uL (130-400); RDW Coefficient of Variation 15.5 % (11.5-14.5); RDW Standard Deviation 53.1 fL (36.4-46.3); Red Blood Count 2.27 M/uL (4.20-5.40); White Blood Count 1.15 K/ul (4.8-10.8)
[2024-02-13] MEDS ORDERED: SODIUM CHLORIDE 0.9% 250 ML IV PRN (06:33)
[2024-02-13 06:47] LABS: Calcium 8.5 mg/dl (8.6-10.3); Potassium 4.6 mmol/L (3.5-5.1)
[2024-02-13 06:52] LABS: Creatinine Clr Calc Pharmacy 47.3 ml/min; Est GFR (African American) 50.4 ml/min; Est GFR (Non-African American) 43.5 ml/min
[2024-02-13 07:01] LABS: ALC (manual) 0.86 K/uL (1.2-3.4); ANC (manual) 0.17 K/uL (1.4-6.5); Dohle Bodies 1+; Eosinophils # (manual) 0.05 K/uL (0-0.50); Eosinophils % (manual) 4 %; Lymphocytes # (manual) 0.86 K/uL (1.2-3.4); Lymphocytes % (manual) 75 %; Monocytes # (manual) 0.07 K/uL (0.11-0.59); Monocytes % (manual) 6 %; Neutrophils # (manual) 0.17 K/uL (1.40-6.50); Neutrophils % (manual) 15 %; Polychromasia 1+; Toxic Granulation 1+
--- NOTE | 2024-02-13 10:29 | Palliative Care Consultation ---
Date of Consultation February 13, 2024 Assessment & Plan (1) Dyspnea and respiratory abnormalities: Patient is currently without significant distress while she is at rest. She is concerned about the potential worsening of the symptoms as the next few days unfold. We discussed the option of trialing opioids to relieve dyspnea on an as-needed basis and she was in agreement, but wants to start out at a lower dosing range. Orders have been written for a comfort focused plan of care. We will also plan to move her to a private room in the hospital and stop monitoring, labs etc. Her sister and family friend are in agreement with this plan. (2) Cancer related pain: Currently, Faiza denies any severe pain. This has been intermittent and occasionally through her upper arms, shoulders and anterior chest wall. She is aware that there has been significant progression of the chest wall mass as well as a pleural effusion which is more than likely tumor related. She has had a significant increase in tumor burden. She has had cycle 1 of a combined chemo and immunotherapy regimen but she is aware that her cancer is not curable at this point, chemo will not help slow it down. (3) Weakness generalized: (4) Advanced care planning/counseling discussion: I met with Faiza, her twin Sister Teetee, and a family friend at her bedside for [id number] advance care planning discussion for 30 minutes. They are aware of her cancer progression at this dramatic increase in tumor burden. They are also aware that the progression of her respiratory symptoms is directly related to the tumor burden increasing in her lungs and contributing to the right pleural effusion. They are all in agreement for transition to a comfort focused plan of care. We discussed this transition will include stopping all nonessential medications, discontinuing monitoring, no more labs or testing, and pursuing a plan of care that is focused on her comfort, symptom management and quality of life. She states that she would like to try some popsicles and does not want to have such a restricted diet. Her diet has been changed to regular and popsicles have been requested for her. She also states that if possible she would like to return home. She is aware that her needs may become too much to manage in the home setting but her sister is willing to take her home with home hospice if she is stable enough for that discharge. Her sister asks if she could stay in the hospital until she dies. Discussed that in general, the insurance rules are for patients become chronically stable, they would need to be discharged to a chronic level of care facility which in her case would either be home with hospice or snf with comfort care +/ addition of hospice. Her sister shares that she anticipates a mortality of days. I reviewed with her the oncology note which indicates prognosis may be days to weeks. Is hard to tell on this first encounter but I would anticipate we will have more information within the next 1 to 2 days with regards to how she is progressing. I did share with them that overall, palliative prognostic suggest a very high mortality within the next few weeks. Reviewed if she continues to decline in a steady manner, or her symptom burden is increased in spite of medications currently ordered for her, then we would likely need to keep her in the hospital for continued end-of-life care. Advised that we will see how she does in the next 1 to 2 days and make a further determination. If she is stable today through tomorrow without further decline then it is likely that care management can begin the process of making arrangements for home with hospice discharge. Patient and her family verbalized understanding and are in agreement with this plan. All questions were answered to their apparent satisfaction. I have updated nursing, primary team. (5) Palliative care by specialist: Met with pt/family. Provided overview of Palliative Medicine, a subspecialty that provides specialized medical care for people living with a serious illness by offering a focus on quality of life. Palliative Medicine is often conflated with hospice: I advised patient/family that Palliative and hospice can be partners but we are not the same. It is important to understand the difference so that we may be informed, and not afraid. Palliative Medicine works to improve QOL through reduction of symptom burden/more control over their illness, for both the patient and family. Palliative medicine clinicians are board certified, specially-trained and another member of the patient's medical care team. We often provide an extra layer of support because our care is based on the needs of the patient, not the prognosis; as such, it's appropriate at any age/advancing stage of a serious illness and can be provided along with curative treatment. Palliative Medicine clinicians are also trained in advanced communication methodologies, to facilitate complex discussions about advanced illness planning, which are needed to help assure that the treatment choices match the patient's goals, aka delivering Goal Concordant care. Finally, we discussed that hospice is a visiting nurse service that focuses on care delivered at the very end of life for patients with terminal illness, with life expectancy less than 6 month. We discussed that cancer patients experience significant symptom and psychosocial burden for which the early integration of supportive oncology with palliative medicine (early findings from the research of Keshia and Fred) help address a growing need to manage patients comprehensively, with an emphasis on symptom control, nutritional and psychosocial support, and pharmaceutical review. Palliative care consultation in patients with advanced cancer is not only associated with an improvement in the quality of oncology care, but also a reduction in downstream healthcare utilization. In Murtaza et al 2017, when the automatic palliative medicine consult was triggered by specific oncology criteria, 30-day readmission rates and use of chemotherapy after discharge declined, whereas hospice referrals and uptake of support services post- discharge increased. Patients with advanced cancer admitted to an acute care hospital often have short life expectancies and high morbidity - for these patients, the integration of palliative care has improved symptom burden, reduced patient and caregiver distress, increased referral to hospice, and improved outcomes. There is strong evidence supporting the initiation of Palliative Care into the management of this patient with advanced met lung cancer; palliative care, when provided alongside oncologic care, leads to improved QOL, fewer depressive symptoms, better prognosis understanding and longer median survival aly when given the overall poor prognosis and QOL issues at hand. (Keshia et al. (2010). Early palliative care for patients with metastatic [id number] lung cancer. [facility] 363(1), 733-742. Doi: 10.1056/[id number].) Palliative Prognostic Score (PaP) = 13.5 points (Interpretation: 30-day survival probability <30%) Palliative Prognostic Index Score (PPI) = 11 points (Note: If the PPI is greater than 6.0, survival is less than three weeks (Sensitivity - 80%; Specificity - 85%).) Plan Transition to comfort care, moved to private room, discontinue labs, monitors, nonessential medications. No further escalations in care. Prognosis likely days to weeks, palliative prognostic support a very high risk of mortality and under 30 days. Dilaudid 0.25 mg every 30 minutes IV as needed and Dilaudid 0.5 mg every 30 minutes IV as needed have been ordered to assist in relieving patient's respiratory distress. She is relatively opioid connie and therefore we did not start at higher doses. Additional medications for symptom management including glycopyrrolate for secretions, lorazepam for agitation, restlessness, insomnia has been ordered. She has Zofran for nausea if indicated. Please note: the above document was generated using voice recognition software. It may contain unintentional grammatical, syntax or spelling errors. Any formal questions or concerns about the content, text or information contained within the body of this dictation should be directly addressed to the provider for clarification. Thank you for allowing us to participate in the ongoing care of this patient. Please don't hesitate to call or page with any additional concerns. Dr. Olga Bowman DNP Director, Palliative Care History of Present Illness Reason for Consultation: On 02/13/24 @ 09:07 Mary Gómez Wrote To Olga Bowman spindle cell Ca, advancing. 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 A week after she developed significant dyspnea, skin rash for which she was brought to [facility] ER. The CT angio from ED revealed significant tumor progression, encompassing the entire right hemithorax. CTA found her chest mass has enlarged, filling majority of the right hemithorax, shifting the mediastinal structures and heart into the left hemithorax per Dr Gómez's 02/12/24 note: " Cancer is bigger and advancing further despite chemotherapy. Spoke to oncologist, Dr. Kulkarni who states that her prognosis is poor. Spoke to the patient about her prognosis. Spoke to the sister at the bedside as well as another sister on the phone on 02/10. Patient has changed her CODE STATUS to DNR/DNI They are now considering comfort directed measures but do not have a final decision yet. They will get back to me with an answer hopefully tomorrow In the meantime, I will continue IV antibiotics (vancomycin and cefepime) in the setting of neutropenia, fever and cancer." CT chest 02/10/2024 reviewed: Large right hilar mass with right-sided pleural effusion, Mediastinal shift to the left, No significant mediastinal lymphadenopathy; ++ Right-sided pleural effusion d/t underlying malignancy. Pulm consult reviewed, Dr Cee noted: "Patient has the tumor which oozes blood. It has led to complicated right-sided pleural effusion. Taking the fluid out or putting the chest tube I do not think will make any difference in patient's shortness of breath as the mass will still be there." Patient seen bedside together with her twin Sister Teetee. Her family friend is also present. She reports that her dyspnea has not particularly abated however at rest, and in a cool room, she does not feel particularly distressed unless she is exerting herself to change positions or have a prolonged conversation. She denies any nausea or vomiting. She is anxious but also comforted by the presence of her family and friends. She and her sister share their understanding of discussions with other specialist in the past few days and patient volunteers that she has little time left and wants to focus that on quality and symptom management. She expresses concerns and fears about suffering, especially feeling that she might suffocate. She admits that she does not have any concerns as far as currently experiencing those symptoms but worries about them as potentials. Allergies Allergy/AdvReac Type Severity Reaction Status Date / Time adhesive Allergy Mild Rash Verified 02/10/24 18:10 Penicillins Allergy Unknown "Strong Verified 02/10/24 18:10 family history"- never used Sulfa (Sulfonamide AdvReac Severe Severe N/V Verified 02/10/24 18:10 Antibiotics) oxycodone [From Percocet] AdvReac Intermediate Palpitations, Verified 02/10/24 18:10 "felt like I was on speed" soap AdvReac Unknown "Construction Administrative Assistant Verified 02/10/24 18:10 & scented soap" - unknown rxn Home Medications Medication Instructions Recorded Confirmed Type acetaminophen 650 mg 0 mg PO DIRECTED PRN Pain 06/22/19 02/10/24 History tablet,extended release (Tylenol Arthritis Pain) fenofibrate micronized 43 mg 43 mg PO DAILY #90 caps 07/13/23 02/10/24 Rx capsule rosuvastatin 40 mg tablet 40 mg PO DAILY #90 tabs 07/13/23 02/10/24 Rx albuterol sulfate 90 mcg/actuation 1 puff inhalation Q6H PRN SOB #8.5 09/29/23 02/10/24 Rx aerosol inhaler (ProAir HFA) grams fluticasone propionate 44 0 puff inhalation BID 12/27/23 02/10/24 History mcg/actuation HFA aerosol inhaler metformin 500 mg tablet 500 mg PO DAILY #90 tabs 01/04/24 02/10/24 Rx guaifenesin 600 mg tablet, 1,200 mg (2 x 600 mg) PO Q12 #0 01/22/24 02/10/24 Rx extended release 12 hr (Mucinex) tabs empagliflozin 10 mg tablet 10 mg PO DAILY #30 tabs 01/24/24 02/10/24 Rx (Jardiance) pantoprazole 40 mg tablet,delayed 40 mg PO DAILY #90 tabs 02/01/24 02/10/24 Rx release levofloxacin 500 mg tablet 500 mg PO DAILY 02/10/24 02/10/24 History Patient History Medical History (Updated 02/13/24 @ 10:25 by Olga Bowman DNP) Palliative care by specialist Advanced care planning/counseling discussion Weakness generalized Dyspnea and respiratory abnormalities Cancer related pain Spindle cell carcinoma Diabetes Dyslipidemia History of recent blood transfusion 01/2024 [facility] On home oxygen therapy 2 lpm via [place], PRN during day, continuous HS Poor historian Spindle cell carcinoma of thorax Recent dx Anxiety Right lower lobe lung mass Pleural effusion Right, suspected malignant- 12/2023 Multiple pulmonary nodules [facility] (acute kidney injury) Hx Psoriasis Stage 3b chronic kidney disease (CKD) Osteopenia Hypertension Arthritis Asthma Recent exacerbation and hospitalization at [facility] in setting of RSV (01/2024) Obesity Encephalitis Hx age 9, paralyzed x 1 year, 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 Gil 12/04/20 +MRSA History of difficult intubation cystoscopy, right ureteroscopy, stent placement: 06/22/19: Elective glidescope #3 grade view 1 at [facility] History of tonsillectomy History of lithotripsy History of cystoscopy with stent History of foot surgery Right H/O knee surgery R/L History of ankle surgery Left Family History Father Hypertension Hx of CABG Sister Hypertension Colorectal cancer Mother Colorectal cancer Stroke Aunt Myocardial infarction maternal Denies family history of Ovarian cancer Prostate cancer Breast cancer Social History Smoking Status: Never smoker Second Hand Exposure: No; Do You Dip or Chew Tobacco: No; Hx Alcohol Use: No Hx Substance Use: No Preferred Language: Kiswahili Communication Ability: Effective Visual Impairment: No Limitations Stock Pitcher Required: No Beliefs That Will Affect Care: Baptism marital status: Single Current Living Situation: Family Current Living Situation Comment: Lives with her twin sisterTeetee 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al status: retired 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: worked in [email or web address]'s office at [employer] How many Children do You have: 0 Other Information That Helps Us Care for You: No Feels Safe at Home: Yes Safety Concerns: Feels Safe At This Time Childhood Exposure to Second-Hand Smoke: No Diet: regular caffeine: Yes (1 cup of tea approx 2x a week) Dental Care, Regularly: Yes Physical Activity Frequency: Daily Physical Activity Frequency Comment: walk Seatbelt Use: always Sunscreen Use: Yes Assistive Devices: Glasses, Oxygen - Continuous and Walker Review of Systems Review of Systems: All systems reviewed & are unremarkable except as noted in Subjective Physical Exam Physical Exam: Chronically ill, frail appearing female, resting semireclined in bed. Mild respiratory effort noted with use of accessory muscles. She is slightly short of breath with conversation. She is speaking in 3-4 word sentences. There is mild bitemporal wasting noted. Pupils are equal, round, reactive to light. Extraocular movements are intact. Oral mucosa is pink and slightly dry appearing. Dentition is fair. There is no obvious thrush noted. Neck is supple and without stridor. There is shotty adenopathy noted anteriorly. Breath sounds are severely diminished right more so than left. Right breath sounds nearly absent. Few crackles noted. CV S1-S2, mild JVD. Abdomen soft and mildly distended. Bowel sounds noted. Generalized weakness throughout. Skin is pale, warm and mildly diaphoretic. There is no overt cyanosis, clubbing or mottling noted. She is awake alert and oriented x 3. She is able to follow commands. Results & Data Vital Signs (Past 12 Hours) Vital Signs Temp Pulse Pulse Resp BP Pulse Ox O2 Del Method 02/13/24 08:00 Nasal Cannula 02/13/24 07:18 93 H 35 H 100 Nasal Cannula 02/13/24 07:00 37.0 C 79 18 129/63 100 Nasal Cannula 02/13/24 02:56 37.2 C 93 H 20 141/71 H 100 Nasal Cannula 02/12/24 23:04 91 H 02/12/24 22:52 36.5 C 91 H 20 120/70 100 Room Air O2 Flow Rate 02/13/24 08:00 3 02/13/24 07:18 5 02/13/24 07:00 3 02/13/24 02:56 3 02/12/24 23:04 02/12/24 22:52 Laboratory Results Laboratory Results WBC 1.15 K/ul (4.8-10.8) L 02/13/24 05:40 RBC 2.27 M/uL (4.20-5.40) L 02/13/24 05:40 Hgb 6.5 g/dl (12.0-16.0) L* 02/13/24 05:40 Hct 21.4 % (37.0-47.0) L 02/13/24 05:40 MCV 94.3 fL (80.0-100.0) 02/13/24 05:40 MCH 28.6 pg (25.0-34.0) 02/13/24 05:40 MCHC 30.4 g/dL (32.0-36.0) L 02/13/24 05:40 RDW Std Deviation 53.1 fL (36.4-46.3) H 02/13/24 05:40 RDW Coeff of Marcos 15.5 % (11.5-14.5) H 02/13/24 05:40 Plt Count 40 K/uL (130-400) L 02/13/24 05:40 MPV 10.1 fL (9.4-12.4) 02/13/24 05:40 Immature Gran % (Auto) 0.0 % 02/12/24 07:51 Neut % (Auto) 11.8 % 02/12/24 07:51 Lymph % (Auto) 65.9 % 02/12/24 07:51 [place] % (Auto) 18.8 % 02/12/24 07:51 Eos % (Auto) 3.5 % 02/12/24 07:51 Baso % (Auto) 0.0 % 02/12/24 07:51 Neut # (Auto) 0.10 K/uL (1.40-6.50) L* 02/12/24 07:51 Lymph # (Auto) 0.56 K/uL (1.20-3.40) L 02/12/24 07:51 [place] # (Auto) 0.16 K/uL (0.11-0.59) 02/12/24 07:51 Eos # (Auto) 0.03 K/uL (0.00-0.50) 02/12/24 07:51 Baso # (Auto) 0.00 K/uL (0.00-0.20) 02/12/24 07:51 Immature Gran # (Auto) 0.00 K/uL (0.01-0.20) L 02/12/24 07:51 Neutrophils % (Manual) 15 % 02/13/24 05:40 Lymphocytes % (Manual) 75 % 02/13/24 05:40 Monocytes % (Manual) 6 % 02/13/24 05:40 Eosinophils % (Manual) 4 % 02/13/24 05:40 Neutrophils # (Manual) 0.17 K/uL (1.40-6.50) L 02/13/24 05:40 Total Absolute Neuts 0.17 K/uL (1.4-6.5) L* 02/13/24 05:40 Lymphocytes # (Manual) 0.86 K/uL (1.2-3.4) L 02/13/24 05:40 Total Abs Lymphocytes 0.86 K/uL (1.2-3.4) L 02/13/24 05:40 Monocytes # (Manual) 0.07 K/uL (0.11-0.59) L 02/13/24 05:40 Eosinophils # (Manual) 0.05 K/uL (0-0.50) 02/13/24 05:40 Toxic Granulation 1+ 02/13/24 05:40 Dohle Bodies 1+ 02/13/24 05:40 RBC Morphology Unremarkable 02/11/24 07:41 Polychromasia 1+ 02/13/24 05:40 PT 12.4 Seconds (9.0-12.0) H 02/10/24 16:54 INR 1.1 (0.9-1.1) 02/10/24 16:54 APTT 31 Seconds (21-31) 02/10/24 16:54 PTT Ratio 1.1 02/10/24 16:54 Sodium 142 mmol/L (136-145) 02/13/24 05:40 Potassium 4.6 mmol/L (3.5-5.1) 02/13/24 05:40 Chloride 113 mmol/L (98-107) H 02/13/24 05:40 Carbon Dioxide 20 mmol/L (21-32) L 02/13/24 05:40 Anion Gap 9 (3-11) 02/13/24 05:40 BUN 41 mg/dl (6-23) H 02/13/24 05:40 Creatinine 1.28 mg/dl (0.6-1.2) H 02/13/24 05:40 Est Cr Clr Drug Dosing 47.3 ml/min 02/13/24 05:40 Est GFR ( Amer) 50.4 ml/min 02/13/24 05:40 Est GFR (Non-Af Amer) 43.5 ml/min 02/13/24 05:40 BUN/Creatinine Ratio 32.0 (10-20) H 02/13/24 05:40 Glucose 98 mg/dl (70-99(Fasting)) 02/13/24 05:40 POC Glucose 111 mg/dl (70-99) H 02/13/24 11:30 Lactate 1.8 mmol/L (0.4-2.0) 02/10/24 16:54 Calcium 8.5 mg/dl (8.6-10.3) L 02/13/24 05:40 Total Bilirubin 0.7 mg/dl (0.2-1.0) 02/11/24 07:41 AST 11 U/L (13-39) L 02/11/24 07:41 ALT 11 U/L (7-52) 02/11/24 07:41 Alkaline Phosphatase 89 U/L (34-104) 02/11/24 07:41 Troponin I High Sens 10.0 pg/ml (0-14) 02/10/24 16:54 B-Natriuretic Peptide 79 pg/ml (0-100) 02/10/24 19:51 Total Protein 6.1 gm/dl (6.0-8.3) 02/11/24 07:41 Albumin 2.9 gm/dl (3.4-5.0) L 02/11/24 07:41 Globulin 3.2 gm/dl (2.5-4.0) 02/11/24 07:41 Albumin/Globulin Ratio 0.9 (0.9-2) 02/11/24 07:41 Lipase 15 U/L (11-82) 02/10/24 16:54 HCG, Qual Negative (Negative) 02/10/24 16:54 Urine Color Yellow 02/11/24 08:20 Urine Appearance Clear (Clear) 02/11/24 08:20 Urine pH 5.0 (4.5-7.5) 02/11/24 08:20 Ur Specific [place] > 1.045 (1.000-1.030) H 02/11/24 08:20 Urine Protein Trace (Negative) H 02/11/24 08:20 Urine Glucose (UA) Negative (Negative) 02/11/24 08:20 Urine Ketones Negative (Negative) 02/11/24 08:20 Urine Blood Negative (Negative) 02/11/24 08:20 Urine Nitrite Negative (Negative) 02/11/24 08:20 Urine Bilirubin Negative (Negative) 02/11/24 08:20 Urine Urobilinogen Negative (Negative) 02/11/24 08:20 Ur Leukocyte Esterase Negative (Negative) 02/11/24 08:20 Urine WBC (Auto) 1-5 /hpf (0-5) 02/11/24 08:20 Urine RBC (Auto) 0-4 /hpf (0-4) 02/11/24 08:20 U Hyaline Cast (Auto) 1-5 /lpf (0-5) 02/11/24 08:20 U Epithel Cells (Auto) >30 /lpf (0-5) H 02/11/24 08:20 Urine Bacteria (Auto) Negative (Negative) 02/11/24 08:20 Nasal Screen MRSA (PCR) Negative (Negative) 02/11/24 13:50 Random Vancomycin 17.5 mcg/ml (10-20) 02/13/24 05:40 Adenovirus (PCR) Not Detected (NotDetected) 02/10/24 17:30 B. pertussis DNA (PCR) Not Detected (NotDetected) 02/10/24 17:30 B.parapertussis DNA PCR Not Detected (NotDetected) 02/10/24 17:30 C. pneumoniae DNA (PCR) Not Detected (NotDetected) 02/10/24 17:30 Coronavirus OC43 (PCR) Not Detected (NotDetected) 02/10/24 17:30 Coronavirus HKU1 (PCR) Not Detected (NotDetected) 02/10/24 17:30 Coronavirus 229E (PCR) Not Detected (NotDetected) 02/10/24 17:30 SARS-CoV-2 (PCR) Not Detected (NotDetected) 02/10/24 17:30 Coronavirus NL63 (PCR) Not Detected (NotDetected) 02/10/24 17:30 Human Metapneumovir PCR Not Detected (NotDetected) 02/10/24 17:30 Influenza Type A (PCR) Not Detected (NotDetected) 02/10/24 17:30 Influenza Type B (PCR) Not Detected (NotDetected) 02/10/24 17:30 M. pneumoniae (PCR) Not Detected (NotDetected) 02/10/24 17:30 Parainfluenza 1 (PCR) Not Detected (NotDetected) 02/10/24 17:30 Parainfluenza 2 (PCR) Not Detected (NotDetected) 02/10/24 17:30 Parainfluenza 3 (PCR) Not Detected (NotDetected) 02/10/24 17:30 Parainfluenza 4 (PCR) Not Detected (NotDetected) 02/10/24 17:30 RSV (PCR) Not Detected (NotDetected) 02/10/24 17:30 Entero/Rhino (PCR) Not Detected (NotDetected) 02/10/24 17:30 Blood Type O Positive 02/10/24 18:06 Antibody Screen NEGATIVE 02/10/24 18:06 Crossmatch See Detail 02/10/24 18:06 Impressions Chest X-Ray 02/10/24 16:44 XR chest 1V portable HISTORY: Chest pain, nonspecific COMPARISON: Chest 01/26/2024. FINDINGS: No pneumothorax. A large right pleural effusion is again noted. This remains unchanged. This results in mass effect with left mediastinal shift. This has progressed in the interval. The heart is stable in size. A left subclavian Port-A-Cath terminates in the SVC. No acute fractures. Lymphadenopathy, pleural masses, and pulmonary lesions are better evaluated on the recent chest CT. Right basilar densities persist. This favors atelectasis from the pleural effusion. IMPRESSION: 1. A large right pleural effusion with interval development of mass effect along the mediastinum resulting in left mediastinal shift. This has progressed in the interval. Consider right-sided thoracentesis for decompression. 2. The lymphadenopathy, pleural masses, pulmonary lesions are better evaluated on the prior chest CT. ACT 112: Negative or not required by law. Electronically signed by: Romaine Tripp M.D. 02/10/2024 5:29 PM Chest CTA 02/10/24 19:05 Exam(s): CTA CHEST IV Amt: 116 cc opti 320 EXAM: CT Angiography Chest With Intravenous Contrast CLINICAL HISTORY: Reason for exam: PE. TECHNIQUE: Axial computed tomographic angiography images of the chest with intravenous contrast. CTDI is 280.7 mGy and DLP is 705.35 mGy-cm. Automated exposure control was utilized for the study. A dose lowering technique was utilized adhering to the principles of ALARA. MIP reconstructed images were created and reviewed. COMPARISON: 01/15/2024 FINDINGS: Pulmonary arteries: No pulmonary embolism. Aorta: No acute findings. Normal caliber. No dissection. Lungs: Interval increase in size of the large mass which now fills the majority of the right hemithorax measuring up to 20.7 x 15.4 x 16.5 cm. There is shift of the mediastinal structures and heart into the left hemithorax. Additional scattered pulmonary nodules within the lungs. No convincing evidence of pneumonia. Pleural space: Unremarkable. Heart: Shifted into the left hemithorax. Bones/joints: No acute fracture. Soft tissues: Unremarkable. Lymph nodes: Unremarkable. IMPRESSION: 1. No pulmonary embolism. 2. Interval increase in size of the large mass which now fills the majority of the right hemithorax measuring up to 20.7 x 15.4 x 16.5 cm. There is shift of the mediastinal structures and heart into the left hemithorax. 3. Additional scattered pulmonary nodules within the lungs. Electronically signed by: Kunal Salinas MD 02/10/24 22:44 PM Diagnostic Findings CBC 02/13/24 Range/Units 05:40 WBC 1.15 L (4.8-10.8) K/ul RBC 2.27 L (4.20-5.40) M/uL Hgb 6.5 L* (12.0-16.0) g/dl Hct 21.4 L (37.0-47.0) % Plt Count 40 L (130-400) K/uL Comprehensive Metabolic Panel 02/13/24 Range/Units 05:40 Sodium 142 (136-145) mmol/L Potassium 4.6 (3.5-5.1) mmol/L Chloride 113 H (98-107) mmol/L Carbon Dioxide 20 L (21-32) mmol/L BUN 41 H (6-23) mg/dl Creatinine 1.28 H (0.6-1.2) mg/dl Glucose 98 (70-99(Fasting)) mg/dl Calcium 8.5 L (8.6-10.3) mg/dl Intake and Output 02/13/24 02/13/24 02/13/24 06:59 14:59 22:59 Output Total 151 / 151 Balance -151 / -151 Output: Urine 150 / 150 # Bowel Movements Other: # Unmeasured Voids 1 1 Weight 87.9 kg PG Care Time/CCT Total # of Minutes Spent Total Time Spent with Patient: Total time spent is greater than 50% in coordination of care (as documented) at patient's floor/unit and/or counseling patient: I spent 90 minutes overall addressing this case: 15 min in medical data review/discussion with referring provider(s) and/or preparation for the visit 15 min in direct interaction with the patient/exam 30 min in Advance Care Planning/Goals of Care discussions as detailed above in note (must be >16min) 15 min in subsequent review and synthesis of assessment and plan 15 min communicating with other providers regarding the patient's case: Nursing, primary team Advanced Care Planning 91029 Advanced Care Planning 30 [place] [address] IN/OBS CONSULT LVL 5,80M Patient Type New History Comprehensive Exam Comprehensive Medical Decision Making High Complexity Diagnoses Dyspnea and respiratory abnormalities R06.00; R06.89 Cancer related pain G89.3 Weakness generalized R53.1 Advanced care planning/counseling discussion Z71.89 Palliative care by specialist Z51.5 Additional Codes Advanced Care Planning - 84467 Advanced Care Planning 30 Min: [id number] Advanced Care Planning 30 Min ([id number])
[2024-02-13] MEDS ORDERED: ONDANSETRON INJ 2 MG/ML 2 ML VIAL IV PRN (12:23)
[2024-02-13] MEDS ORDERED: LORazepam 0.5 MG TAB PO PRN (12:23)
[2024-02-13] MEDS ORDERED: ONDANSETRON 4 MG OD TAB SL PRN (12:23)
[2024-02-13] MEDS ORDERED: MoRPHine SULFATE 2 MG/ML CARP IV PRN (12:23)
[2024-02-13] MEDS ORDERED: GLYCOPYRROLATE 0.2 MG/ML VIAL IV PRN (12:23)
[2024-02-13] MEDS ORDERED: LORazepam 0.5 MG in SYRINGE 0.25 ML IV PRN (12:23)
[2024-02-13] MEDS ORDERED: HYDROmorphone INJ 0.5 MG/0.5 ML SYR IV PRN (12:34)
--- NOTE | 2024-02-13 13:15 | Hospitalist Progress Note ---
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 Port was placed 01/24, no overlying erythema/warmth/tenderness Cancer is bigger and advancing further despite chemotherapy. Spoke to oncologist, Dr. Kulkarni who states that her prognosis is poor. Spoke to the patient about her prognosis. Spoke to the sister at the bedside as well as another sister on the phone on 02/10. Patient now wishes to switch goals of care to comfort measures only, once the financial papers are signed Consult palliative care Spoke to case management (2) Acute hypoxic respiratory failure: Plan: Hypoxic respiratory failure With history of malignancy/exudative/hemorrhagic effusion, 2 L oxygen home oxygen requirement. CTA showed that the the mass in her chest has enlarged and now feels the majority of the right hemithorax, shifting the mediastinal structures and heart into the left hemithorax Pulmonary on board Patient is now DNR/DNI, comfort care Comfort care orders placed (3) Anemia: Plan: Acute on chronic anemia Blood transfusion canceled Patient does not comfort care (4) Stage 3b chronic kidney disease (CKD): Plan: Prerenal azotemia, CKD Patient is now comfort care (5) Diabetes: Plan: DM2 Cancel all orders Patient is now comfort care (6) Rash: Plan: Patient is not uncomfortable due to the rash Continue comfort care Plan DVT prophylaxis: Comfort care Disposition: To [facility] with comfort care CODE STATUS: Changed to DNR/DNI after speaking to the patient and family. Admission and Anticipated Discharge Date Admission Date: February 10, 2024 Subjective Patient says that she is very tired. Had a conversation with the patient in presence of her sister Teetee. Patient has decided on comfort care. They wanted some time to work on some financial matters for which the patient needed to be awake and alert. Once the financial papers were signed, she would want to go ahead with comfort measures only. Review of Systems Review of Systems: All systems reviewed & are unremarkable except as noted in Subjective Physical Exam Physical Exam: General: Awake, conversant. Appears frail and tired Heart: S1, S2/regular rate and rhythm, no murmur rubs or gallops Lungs: Decreased air entry in the right side. Normal effort Abdomen: Soft/nontender/nondistended. No hepatosplenomegaly Extremities: No clubbing/cyanosis. No edema Behavior: Appropriate, cooperative Results & Data Results & Data Vital Signs (Past 12 Hours) Vital Signs Temp Pulse Resp BP Pulse Ox O2 Del Method O2 Flow Rate 02/13/24 11:00 36.7 C 81 20 133/75 97 Nasal Cannula 3 02/13/24 08:00 Nasal Cannula 5 02/13/24 07:18 93 H 35 H 100 Nasal Cannula 5 02/13/24 07:00 37.0 C 79 18 129/63 100 Nasal Cannula 3 02/13/24 02:56 37.2 C 93 H 20 141/71 H 100 Nasal Cannula 3 Laboratory Results Abnormal lab results 02/10/24 02/12/24 02/12/24 Range/Units 18:06 16:24 20:32 WBC (4.8-10.8) K/ul RBC (4.20-5.40) M/uL Hgb (12.0-16.0) g/dl Hct (37.0-47.0) % MCHC (32.0-36.0) g/dL RDW Std Deviation (36.4-46.3) fL RDW Coeff of Marcos (11.5-14.5) % Plt Count (130-400) K/uL Neutrophils # (Manual) (1.40-6.50) K/uL Total Absolute Neuts (1.4-6.5) K/uL Lymphocytes # (Manual) (1.2-3.4) K/uL Total Abs Lymphocytes (1.2-3.4) K/uL Monocytes # (Manual) (0.11-0.59) K/uL Chloride (98-107) mmol/L Carbon Dioxide (21-32) mmol/L BUN (6-23) mg/dl Creatinine (0.6-1.2) mg/dl BUN/Creatinine Ratio (10-20) POC Glucose 125 H 123 H (70-99) mg/dl Calcium (8.6-10.3) mg/dl Crossmatch See Detail 02/13/24 02/13/24 02/13/24 Range/Units 05:40 07:33 11:30 WBC 1.15 L (4.8-10.8) K/ul RBC 2.27 L (4.20-5.40) M/uL Hgb 6.5 L* (12.0-16.0) g/dl Hct 21.4 L (37.0-47.0) % MCHC 30.4 L (32.0-36.0) g/dL RDW Std Deviation 53.1 H (36.4-46.3) fL RDW Coeff of Marcos 15.5 H (11.5-14.5) % Plt Count 40 L (130-400) K/uL Neutrophils # (Manual) 0.17 L (1.40-6.50) K/uL Total Absolute Neuts 0.17 L* (1.4-6.5) K/uL Lymphocytes # (Manual) 0.86 L (1.2-3.4) K/uL Total Abs Lymphocytes 0.86 L (1.2-3.4) K/uL Monocytes # (Manual) 0.07 L (0.11-0.59) K/uL Chloride 113 H (98-107) mmol/L Carbon Dioxide 20 L (21-32) mmol/L BUN 41 H (6-23) mg/dl Creatinine 1.28 H (0.6-1.2) mg/dl BUN/Creatinine Ratio 32.0 H (10-20) POC Glucose 101 H 111 H (70-99) mg/dl Calcium 8.5 L (8.6-10.3) mg/dl Crossmatch PG Care Time/CCT Total # of Minutes Spent Total Time Spent with Patient: Total time spent is greater than 50% in coordination of care (as documented) at patient's floor/unit and/or counseling patient: Coding Level of Care Code 39706 SUB INP/OBS CARE 235MIN Diagnoses Spindle cell carcinoma C80.1 Acute hypoxic respiratory failure J96.01 Anemia D64.9 Stage 3b chronic kidney disease (CKD) N18.32 Diabetes E11.9 Rash R21
--- NOTE | 2024-02-13 14:24 | Electrocardiogram Report ---
Test Reason : Blood Pressure : / mmHG Vent. Rate : 108 BPM Atrial Rate : 108 BPM P-R Int : 168 ms QRS Dur : 064 ms QT Int : 320 ms P-R-T Axes : 070 063 016 degrees QTc Int : 428 ms Sinus tachycardia Cannot rule out Anterior infarct (cited on or before 27-DEC-2023) Abnormal ECG When compared with ECG of 15-JAN-2024 07:30, No significant change Confirmed by Campbell Mustafa ([id number]) on 02/13/2024 2:24:05 PM Referred By: REFERRED SELF Confirmed By:Campbell Mustafa
[2024-02-13] MEDS: HYDROmorphone INJ 0.5 MG/0.5 ML SYR IV PRN (18:02)
[2024-02-13] MEDS: ONDANSETRON INJ 2 MG/ML 2 ML VIAL IV PRN (22:37)
[2024-02-14] MEDS: LORazepam 0.5 MG in SYRINGE 0.25 ML IV PRN (00:58)
[2024-02-14] MEDS: diphenhydrAMINE 50 MG/ML VIAL IV PRN (14:18)
--- NOTE | 2024-02-14 15:46 | Hospitalist Progress Note ---
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 Port was placed 01/24, no overlying erythema/warmth/tenderness Cancer is bigger and advancing further despite chemotherapy. Spoke to oncologist, Dr. Kulkarni who states that her prognosis is poor. Spoke to the patient about her prognosis. Spoke to the sister at the bedside as well as another sister on the phone on 02/10. Patient has been switched over to comfort measures only. (2) Acute hypoxic respiratory failure: Plan: Hypoxic respiratory failure With history of malignancy/exudative/hemorrhagic effusion, 2 L oxygen home oxygen requirement. CTA showed that the the mass in her chest has enlarged and now feels the majority of the right hemithorax, shifting the mediastinal structures and heart into the left hemithorax Pulmonary on board Patient is now DNR/DNI, comfort care Comfort care orders placed (3) Anemia: Plan: Acute on chronic anemia Blood transfusion canceled Patient is now comfort care (4) Stage 3b chronic kidney disease (CKD): Plan: Prerenal azotemia, CKD Patient is now comfort care (5) Diabetes: Plan: DM2 Cancel all orders Patient is now comfort care (6) Rash: Plan: Patient is not uncomfortable due to the rash Continue comfort care Plan DVT prophylaxis: Comfort care Disposition: To [facility] with comfort care CODE STATUS: Changed to DNR/DNI after speaking to the patient and family. Admission and Anticipated Discharge Date Admission Date: February 10, 2024 Subjective Patient is comfort measures only. She appears comfortable Review of Systems Review of Systems: Unobtainable due to cognitive status Physical Exam Physical Exam: General appearance: Patient appears comfortable. No respiratory distress Results & Data Results & Data Vital Signs (Past 12 Hours) Vital Signs O2 Del Method O2 Flow Rate 02/14/24 08:03 Nasal Cannula 6 PG Care Time/CCT Total # of Minutes Spent Total Time Spent with Patient: Total time spent is greater than 50% in coordination of care (as documented) at patient's floor/unit and/or counseling patient: Coding Level of Care Code 98874 SUB INP/OBS CARE 2/35MIN Diagnoses Spindle cell carcinoma C80.1 Acute hypoxic respiratory failure J96.01 Anemia D64.9 Stage 3b chronic kidney disease (CKD) N18.32 Diabetes E11.9 Rash R21
[2024-02-14] MEDS: HYDROmorphone HCL 2 MG TAB PO PRN ×2 (17:18→20:22)
--- NOTE | 2024-02-14 19:22 | Palliative Care Progress Note ---
Date of Service February 14, 2024 Assessment & Plan (1) Dyspnea and respiratory abnormalities: (2) Weakness generalized: (3) Cancer related pain: (4) Spindle cell carcinoma: (5) Pleural effusion: (6) Spindle cell carcinoma of thorax: (7) Palliative care by specialist: (8) Advanced care planning/counseling discussion: Plan: 20min face to face with Troy and her twin sister Teetee Reviewed changes from yesterday = today more dyspneic, 8 pillow orthopnea and very anxious but refusing to use prn opioids more frequently IV site now likely lost, trouble obtaining new site, will try oral meds/see orders Encouraged to use meds as ordered to improve comfort We discussed that symptom relief may come with trade off of more sedation, this can be unique for every patient and some may prefer to be more awake but less comfortable or vice versa; advised her it is always her choice and will honor those decisions and preferences. Discussed changes pt may move through in the dying process including but not limited to sleeping more, disorientation when awake, restlessness, diminished senses/inability to respond to stimulus although ability to be aware of them remains intact longer, changes in body temperatures, skin changes/mottling/cyanosis, respiratory pattern changes, oral secretions. Family verbalized understanding. The goal is to assure a peaceful . Plan * Oral Dilaudid 1 and 2mg doses added * Oral Ativan added * Requested new IV site, patient has a very aggressive and progressive cancer with diffuse spread through her thorax: I anticipate her end of life trajectory will include significant and possible severe dyspnea and air hunger crisis. IV meds will be the only method for rapid relief of both dyspnea and its associated panic. * Above reviewed with nursing staff. Thank you for allowing us to participate in the ongoing care of this patient. Please don't hesitate to call or page with any additional concerns. Dr. Olga Bowman DNP Director, Palliative Care Admission and Anticipated Discharge Date Admission Date: February 10, 2024 Subjective Troy remains on comfort care, her twin sister Teetee is by her wide She remains very dyspneic,more than yesterday and seems more anxious today - She is propped up in bed with 8 pillows behind her. She used four doses 0.5mg IV Dilaudid and tells me they were helpful however now her IV site is not working well/is leaking and they are having trouble finding a new site. She would like to try some oral meds Appetite low but tolerating Boost drinks which seem to be the most comfortable texture for her Review of Systems Review of Systems: All systems reviewed & are unremarkable except as noted in Subjective Physical Exam Physical Exam: Chronically ill, frail appearing female, reclined @approx 90 degrees in bed. Bitemp wasting, PERRLA and EOMIs Increased respiratory effort with use of accessory muscles. 2-3 word sentences Oral mucosa is pink and slightly dry. Dentition is fair. There is no obvious thrush noted. Neck is supple and without stridor. There is shotty adenopathy noted anteriorly. Breath sounds are severely diminished right more so than left. Right breath sounds nearly absent. Few crackles noted. CV S1-S2, mild JVD. Abdomen soft and mildly distended. Bowel sounds noted. +Generalized weakness Skin is pale w/scattered ecchymoses, large ecchymoses on left anterior chest wall @site of old port (now removed per pt) AAOx3 +able to follow commands. 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 PG Care Time/CCT Total # of Minutes Spent Total Time Spent with Patient: Total time spent is greater than 50% in coordination of care (as documented) at patient's floor/unit and/or counseling patient: I spent 70 minutes overall addressing this case: 10 min in medical data review/discussion with referring provider(s) and/or preparation for the visit 15 min in direct interaction with the patient/exam 20 min in Advance Care Planning/Goals of Care discussions as detailed above in note (must be >16min) 10 min in subsequent review and synthesis of assessment and plan 15 min communicating with other providers regarding the patient's case: nursing, primary team Advanced Care Planning 54864 Advanced Care Planning 30 Min [place] [address] SUB INP/OBS CARE 3/50MIN Patient Type Established History Comprehensive Exam Comprehensive Medical Decision Making High Complexity Diagnoses Dyspnea and respiratory abnormalities R06.00; R06.89 Weakness generalized R53.1 Cancer related pain G89.3 Spindle cell carcinoma C80.1 Pleural effusion J90 Spindle cell carcinoma of thorax C76.1 Palliative care by specialist Z51.5 Advanced care planning/counseling discussion Z71.89 Additional Codes Advanced Care Planning - 64342 Advanced Care Planning 30 Min: 76945 Advanced Care Planning 30 Min ([id number])
[2024-02-15] MEDS: LORazepam 1 MG TAB SL PRN (07:24)
[2024-02-15] MEDS: GLYCOPYRROLATE 0.2 MG/ML VIAL IV PRN (09:23)
--- NOTE | 2024-02-15 15:24 | Hospitalist Progress Note ---
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 Port was placed 01/24, no overlying erythema/warmth/tenderness Cancer is bigger and advancing further despite chemotherapy. Spoke to oncologist, Dr. Kulkarni who states that her prognosis is poor. Spoke to the patient about her prognosis. Spoke to the sister at the bedside as well as another sister on the phone on 02/10. Patient has been switched over to comfort measures only. (2) Acute hypoxic respiratory failure: Plan: Hypoxic respiratory failure With history of malignancy/exudative/hemorrhagic effusion, 2 L oxygen home oxygen requirement. CTA showed that the the mass in her chest has enlarged and now feels the majority of the right hemithorax, shifting the mediastinal structures and heart into the left hemithorax Pulmonary on board Patient is now DNR/DNI, comfort care Comfort care orders placed (3) Anemia: Plan: Acute on chronic anemia Blood transfusion canceled Patient is now comfort care (4) Stage 3b chronic kidney disease (CKD): Plan: Prerenal azotemia, CKD Patient is now comfort care (5) Diabetes: Plan: DM2 Cancel all orders Patient is now comfort care (6) Rash: Plan: Patient is not uncomfortable due to the rash Continue comfort care Plan DVT prophylaxis: Comfort care Disposition: To [facility] with comfort care CODE STATUS: Changed to DNR/DNI after speaking to the patient and family. Patient will need IV access to achieve comfort care needs. Admission and Anticipated Discharge Date Admission Date: February 10, 2024 Subjective Patient is accompanied by her brother at the bedside. She appears to be slightly dyspneic today and more anxious. Review of Systems Review of Systems: Unobtainable due to cognitive status Physical Exam Physical Exam: General appearance: Patient appears less comfortable today. Mild respiratory distress Results & Data Results & Data Vital Signs (Past 12 Hours) Vital Signs O2 Del Method O2 Flow Rate 02/15/24 07:35 Nasal Cannula 6 PG Care Time/CCT Total # of Minutes Spent Total Time Spent with Patient: Total time spent is greater than 50% in coordination of care (as documented) at patient's floor/unit and/or counseling patient: Coding Level of Care Code 15082 SUB INP/OBS CARE MIN Diagnoses Spindle cell carcinoma C80.1 Acute hypoxic respiratory failure J96.01 Anemia D64.9 Stage 3b chronic kidney disease (CKD) N18.32 Diabetes E11.9 Rash R21
[2024-02-16] MEDS: HYDROmorphone INJ 0.5 MG/0.5 ML SYR IV PRN ×2 (06:02→08:29)
--- NOTE | 2024-02-16 16:28 | Hospitalist Progress Note ---
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 [place] Undergoing chemotherapy with cancer care partnership. Port was placed 01/24, no overlying erythema/warmth/tenderness Cancer is bigger and advancing further despite chemotherapy. Spoke to oncologist, Dr. Kulkarni who states that her prognosis is poor. Spoke to the patient about her prognosis. Spoke to the sister at the bedside as well as another sister on the phone on 02/10. Patient has been switched over to comfort measures only. (2) Acute hypoxic respiratory failure: Plan: Hypoxic respiratory failure With history of malignancy/exudative/hemorrhagic effusion, 2 L oxygen home oxygen requirement. CTA showed that the the mass in her chest has enlarged and now feels the majority of the right hemithorax, shifting the mediastinal structures and heart into the left hemithorax Pulmonary on board Patient is now DNR/DNI, comfort care Comfort care orders placed (3) Anemia: Plan: Acute on chronic anemia Blood transfusion canceled Patient is now comfort care (4) Stage 3b chronic kidney disease (CKD): Plan: Prerenal azotemia, CKD Patient is now comfort care (5) Diabetes: Plan: DM2 Cancel all orders Patient is now comfort care (6) Rash: Plan: Patient is not uncomfortable due to the rash Continue comfort care Plan DVT prophylaxis: Comfort care Disposition: To [facility] with comfort care CODE STATUS: Changed to DNR/DNI after speaking to the patient and family. Admission and Anticipated Discharge Date Admission Date: February 10, 2024 Subjective Patient appears comfortable. Surrounded by family in the Review of Systems Review of Systems: Unobtainable due to cognitive status Physical Exam Physical Exam: General appearance: Patient appears comfortable Results & Data Results & Data Vital Signs (Past 12 Hours) Vital Signs O2 Del Method 02/16/24 09:40 Nasal Cannula PG Care Time/CCT Total # of Minutes Spent Total Time Spent with Patient: Total time spent is greater than 50% in coordination of care (as documented) at patient's floor/unit and/or counseling patient: Coding Level of Care Code 05022 SUB INP/OBS CARE 2/35MIN Diagnoses Spindle cell carcinoma C80.1 Acute hypoxic respiratory failure J96.01 Anemia D64.9 Stage 3b chronic kidney disease (CKD) N18.32 Diabetes E11.9 Rash R21
[2024-02-17] MEDS ORDERED: LORazepam 1 MG in SYRINGE 0.5 ML IV PRN (12:48)
[2024-02-17] MEDS ORDERED: HYDROmorphone INJ 0.5 MG/0.5 ML SYR IV PRN ×2 (12:48)
--- NOTE | 2024-02-17 14:14 | Discharge Summary ---
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 Chest x-ray shows large right pleural effusion with development of mass effect along the mediastinum with shift progressed compared to prior. 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 Pulmonary consultated and will continue to follow. Faiza is seen at the bedside. She reports that after her recent course and chest tube was removed approximately 3 weeks ago she was doing okay. Followed up with oncology and had chemo this past week. Tolerated this well with some nausea, was placed on Levaquin for UTI which she finished her 5-day course today. She has had some worsening shortness of breath, and today she feels like her breathing became much worse around 3 PM. She notes a feeling of discomfort in her chest with radiation to her back between her shoulder blades, pain is worse both when coughing and when attempting to take a deep breath and feels she has a sensation that she cannot get air. She knows she does have panic attacks and anxiety which make this feeling worse. She does feel her breathing is currently worse than normal, although her oxygen requirements do not seem to have gone up she has desaturated to the mid 80s on ambulation but has been in the 90s at home at rest with her normal 2 L of oxygen. She has not been on any pharmacal prophylaxis since being in the hospital and was on DVT prophylaxis at that time. Denies leg swelling or calf pain. Denies trauma/injuries. Notes she did have a port placed. She denies fever, shaking chills, sweats, rigors today. She denies abdominal pain but does endorse nausea and feels that her shortness of breath and breathing makes the nausea worse. Denies bright red blood per rectum, diarrhea, constipation. Endorses a rash over her lower abdomen and mid thighs which just began today. Only new medications were Levaquin which she completed this morning a 5-day course, and promethazine for nausea which she took the first dose last night. Denies lip swelling, tongue swelling, inspiratory wheezing. 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 Acute hypoxic respiratory failure Discharge Exam Patient Discharge Data Allergies Allergy/AdvReac Type Severity Reaction Status Date / Time venom-wasp Allergy Severe Anaphylaxis Unverified 12/19/23 10:24 pollen extracts Allergy Intermediate CONGESTION/ Unverified 12/19/23 10:24 SNEEZING adhesive Allergy Mild Rash Verified 02/10/24 18:10 amlodipine Allergy Unknown CAN'T Unverified 12/19/23 10:24 REMEMBER cefuroxime Allergy Unknown CAN'T Unverified 12/19/23 10:24 REMEMBER ciprofloxacin Allergy Unknown CAN'T Unverified 12/19/23 10:24 REMEMBER codeine Allergy Unknown CAN'T TAKE Unverified 12/19/23 10:24 enalapril Allergy Unknown CAN'T Unverified 12/19/23 10:24 REMEMBER penicillin G Allergy Unknown CAN'T Unverified 12/19/23 10:24 REMEMBER Penicillins Allergy Unknown "Strong Verified 02/10/24 18:10 family history"- never used Sulfa (Sulfonamide AdvReac Severe Severe N/V Verified 02/10/24 18:10 Antibiotics) oxycodone [From Percocet] AdvReac Intermediate Palpitations, Verified 02/10/24 18:10 "felt like I was on speed" soap AdvReac Unknown "Oil [employer] Pumper Verified 02/10/24 18:10 & scented soap" - unknown rxn amlodipine Allergy Uncoded 12/19/23 10:24 Consultations 02/10/24 18:03 ED Decision to Admit Stat 02/10/24 18:04 Consult Pulmonology Routine 02/11/24 09:31 Consult Oncology Routine 02/13/24 09:04 Consult Palliative Care Routine 02/13/24 10:48 Consult Patient Rep [Consult Patient Services] Routine Ordered Studies 02/10/24 19:05 CT angio chest PE protocol Stat 02/11/24 11:04 US point of care ultrasound Urgent Hospital Course (1) Spindle cell carcinoma: Spindle cell carcinoma, 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 Port was placed 01/24 Cancer is bigger and advancing further despite chemotherapy. Spoke to oncologist, Dr. Kulkarni who stated that her prognosis is poor. Spoke to the patient about her prognosis. Spoke to the sister at the bedside as well as another sister on the phone on 02/10. Patient has been switched over to comfort measures only. Patient with comfort care (2) Acute hypoxic respiratory failure: Hypoxic respiratory failure With history of malignancy/exudative/hemorrhagic effusion, 2 L oxygen home oxygen requirement. CTA showed that the the mass in her chest has enlarged and now feels the majority of the right hemithorax, shifting the mediastinal structures and heart into the left hemithorax Pulmonary on board Patient was switched to comfort care Patient today (3) Anemia: with comfort care (4) Stage 3b chronic kidney disease (CKD): with comfort care. 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
== END 2024-02-17 14:45 | disposition expired | DRG 180 ==
LOC: ED 16:39 → SUATTDRO 20:28 → 2E 20:28 → 3E 02-13 17:52